=== PATIENT | female | born 1955 | race Caucasian/White ===

== ENCOUNTER → 2017-07-08 11:03 | Outpatient (CLI) | payer BC, SELFPAY ==
--- NOTE | 2017-07-08 11:30 | MRI_ITS ---
STUDY: MRI BRAIN WITHOUT CONTRAST REASON FOR EXAM: Female, 61 years old. Tremors. Photophobia off-and-on x one year or more. TECHNIQUE: Standardized multiplanar fat and water weighted pulse sequences were obtained. COMPARISON: None. FINDINGS: No restricted diffusion to suspect acute or subacute ischemic infarct. No focal signal abnormalities throughout the brain parenchyma in all of the pulse sequences. The manuel matter, white matter, ventricles and cisterns are normal. Normal size of the ventricles and extra-axial spaces for the patient's age. Normal white matter tracts of the supratentorial brain. Normal bilateral basal ganglia. Normal thalami. There is no extra-axial fluid accumulation. Normal flow voids within the major intracranial circulation suggesting patency by spin echo criteria. Normal sella turcica, pituitary gland, infundibular stalk, optic chiasm and hypothalamus. Normal tectal plate and pineal gland. Normal midbrain, jerel and medulla. Normal cerebellum. Normal basal cisterns. Normal bilateral temporal bones. Normal bilateral internal auditory canals. No demonstrated orbital abnormality, within the constraints of a routine brain study. Normal visualized paranasal sinuses. Normal calvarium and skull base. Normal visualized soft tissue structures. Normal visualized upper cervical spine. MRI/Brain without Contrast IMPRESSION: Normal unenhanced MRI of the brain. Electronically Signed: Justice Charles MD at 13:46 EST , Service support ,
== END ==
PROVIDERS: Family Provider Family Medicine; PCP Family Medicine; Visit Provider Psychiatry & Neurology Neurology
DX: R25.1 Tremor, unspecified (principal); R51 Headache
CPT/HCPCS: 70551

== ENCOUNTER → 2017-07-14 12:00 | Outpatient (CLI) | payer BC, SELFPAY ==
[2017-07-14 14:38] LABS: Free T3 3.7 pg/mL (2.18-3.98); Thyroid Stim Hormone (TSH) 2.11 uIU/mL (0.358-3.74)
[2017-07-16 14:49] LABS: Nortriptyline Level 58 ng/mL (50-150)
== END ==
PROVIDERS: Family Provider Family Medicine; PCP Family Medicine; Visit Provider Psychiatry & Neurology Psychiatry
DX: E03.9 Hypothyroidism, unspecified (principal)
CPT/HCPCS: 36415; 80335; 84439; 84443; 84481

== ENCOUNTER → 2017-09-09 08:16 | Outpatient (CLI) | payer BC, SELFPAY ==
--- NOTE | 2017-09-09 08:18 | RAD_ITS ---
STUDY: X-RAY - RIGHT HAND REASON FOR EXAM: Medial hand pain after injury 2 weeks ago. TECHNIQUE: 3 view(s) of the hand. COMPARISON: Radiographs 11/01/2016. FINDINGS: Normal radiocarpal articulation. Normal distal radioulnar joint. Normal visualized carpal bones. There is widening the scapholunate interval as on the prior study. Normal carpometacarpal articulation of the thumb. Normal second through fifth carpometacarpal joints. There is healed fracture deformity of the proximal fifth metacarpal. Normal metacarpophalangeal joint of the thumb. Normal interphalangeal joint of the thumb. Normal proximal and distal phalanges of the thumb. Normal metacarpophalangeal joints of the second through fifth fingers. Normal proximal and distal interphalangeal joints of the second through fifth fingers. Normal phalanges of the second through fifth fingers. The soft tissue structures are unremarkable. RAD/Hand Min 3 Views IMPRESSION: Healed fracture deformity of the proximal fifth metacarpal. Chronic tear of the scapholunate ligament. No demonstrated new injury. Electronically Signed: Justin Hernandez MD at 11:50 EDT Tel , Service support ,
== END ==
PROVIDERS: Family Provider Family Medicine; PCP Family Medicine; Visit Provider Orthopaedic Surgery
DX: M79.641 Pain in right hand (principal)
CPT/HCPCS: 73130

== ENCOUNTER → 2017-09-18 14:17 | Outpatient (CLI) | payer BC, SELFPAY ==
--- NOTE | 2017-09-18 14:20 | BD_ITS ---
STUDY: DUAL ENERGY X-RAY ABSORPTIOMETRY / DXA REASON FOR EXAM: Female, 61 years old. The patient is postmenopausal. Loss of height of 2 inches. TECHNIQUE: Bone Mineral Density (BMD) measurements of lumbar spine and bilateral hips were obtained. COMPARISON: Comparison is made with prior study dated July 26, 2015. FINDINGS: Lumbar Spine (L1-L4): g/cm2 (1.029) / T-score (-1.4) / Z-score (0.0) Findings are suggestive of osteopenia with a moderate fracture risk. Left Femur Total: g/cm2 (0.853) / T-score (-1.2) / Z-score (-0.2) Left Femoral Neck: g/cm2 (0.876) / T-score (-1.2) / Z-score (0.2) Right Femur Total: g/cm2 (0.850) / T-score (-1.2) / Z-score (-0.2) Right Femoral Neck: g/cm2 (0.872) / T-score (-1.2) / Z-score (0.2) The T-Scores on the most recent prior examination were: Lumbar Spine (L1-L4): There has been worsening of bone density since the previous examination. Left Femur Total: which represents an improvement of 0.4%. Right Femur Total: which represents a worsening of 0.6%. BD/Dexa Bone Density Study IMPRESSION: The patient is considered osteopenic as outlined below according to World [employer] Organization (WHO) criteria with a moderate fracture risk. There has been worsening of bone density since the previous examination. Reference Information: The T-score is the number of standard deviations above or below the standard which is normal for young adults at their peak bone mineral density. The World Health Organization (WHO) interprets the T-scores as follows: Above -1 Normal bone density Between -1 and -2.5 Osteopenia Equal to / or below -2.5 Osteoporosis As a practical clinical guideline, osteopenia may be graded as follows: Mild -1 through -1.5 Moderate -1.6 through -2.0 Severe -2.1 through -2.4 The Z-score is the number of standard deviations above or below age-matched controls. A Z-score of less than -1.5 would be considered abnormal. References: 1. NIH Osteoporosis and Related Bone Diseases http://www.osteo.org 2. International Society for Clinical Densitometry http://www.iscd.org 3. National Osteoporosis Foundation http://www.nof.org Electronically Signed: Zach Muñoz MD at 14:58 EDT Tel [phone], Service support ,
== END ==
PROVIDERS: Family Provider Family Medicine; PCP Family Medicine; Visit Provider Family Medicine
DX: M81.0 Age-related osteoporosis without current pathological fracture (principal)
CPT/HCPCS: 77080

== ENCOUNTER → 2017-11-06 10:56 | Outpatient (CLI) | payer BC, SELFPAY ==
--- NOTE | 2017-11-06 10:58 | RAD_ITS ---
STUDY: X-RAY - PELVIS AND LEFT HIP REASON FOR EXAM: Left hip pain for 2 years, worsening. TECHNIQUE: Radiological exam, hip, unilateral, with pelvis when performed; 2 or 3 views. COMPARISON: None. FINDINGS: There are small pelvic phleboliths. There is enthesopathy of the iliac wings bilaterally. Normal bilateral superior and inferior pubic rami. Normal pubic symphysis. Normal bilateral ischial tuberosities. Normal visualized left femoral head. Normal left acetabulum. Normal left hip joint. RAD/Hip 2-3 Views with Pelvis IMPRESSION: Enthesopathy of the iliac wings bilaterally. Otherwise, unremarkable x-ray examination of the pelvis and left hip. Electronically Signed: Justin Hernandez MD at 15:13 EDT Tel , Service support ,
--- NOTE | 2017-11-06 10:58 | RAD_ITS ---
STUDY: X-RAY - LUMBOSACRAL SPINE REASON FOR EXAM: Female, 62 years old. Left hip pain for 2 years. TECHNIQUE: 6 view(s) of the lumbosacral spine including lateral flexion and extension views were obtained. COMPARISON: None FINDINGS: Normal lumbar lordosis. There is no substantial scoliosis. There is normal alignment of the vertebrae. There is limited flexion and extension with no abnormal motion. Normal vertebral bodies and endplates. There is intervertebral disc space narrowing at multiple levels, most marked at L4-5 with no significant osteophyte formation. There is mild diffuse facet sclerosis. Normal bilateral sacral ala, sacroiliac joints, and visualized sacrum. There are cholecystectomy clips. RAD/L/S Spine Comp/w Bending Views IMPRESSION: Minimal lumbar spondylosis. Limited flexion and extension with no abnormal motion. Electronically Signed: Aurelio Bustillo MD at 16:15 EDT , Service support ,
== END ==
PROVIDERS: Family Provider Family Medicine; PCP Family Medicine; Visit Provider Orthopaedic Surgery
DX: M54.16 Radiculopathy, lumbar region (principal); M47.896 Other spondylosis, lumbar region; M77.9 Enthesopathy, unspecified
CPT/HCPCS: 72114; 73502

== ENCOUNTER 2017-12-04 14:00 | Outpatient (RCR) | payer BC, SELFPAY ==
--- NOTE | 2017-11-18 18:57 | HP.PTEVAL_ITS ---
Patient's Visit Information ACE HINES is a 62 year old F referred to Physical Therapy by Malgorzata Goodwin DO with a diagnosis of LBP and Left Hip Pain. Date of Evaluation: 11/18/17 Physical Therapist: Phyllis Tran - Visit Plan Frequency: 2x /Week Duration: 4 Weeks Plan: Focus on core s/s and postural education - Subjective Subjective: Patient reports that her left hip has been bothering her for months with insidious onset. She went to the MD who took x-rays which she reports were negative- did not give her an injection and sent her to PT. Over the years she has been thrown by horses and mostly lands on her left side. The pain is located over the left hip to the knee on the lateral aspect. Pain at its worst: 4/10 agg: movement, pushing, pulling, driving >2 hours. Best: 0/10 but she has not found anything that eases the pain once she starts to hurt. She reports the pain can either be achy or sharp/shooting. Sharp/shooting happens when she steps up on a greater step with the left LE. N/T down to the knee that comes and goes. Denies any back pain. No change or loss of bowel/ bladder. Sleep: not disturbed but she doesn't sleep well normally. Work: retired- but is very active. She is currently not but plans to get back to riding horses. PMHx: skin cancer, depression, heart palpitations, stomach issues, and hiatal hernia. Meds: Lexipro, protonics, troprolol, nortiptolene, thyroid, lipitor. - Objective Posture: FH, RS, Increased kyphosis- can correct with verbal cues but doesn't maintain in both sitting and standing. Gait: no deviation noted. ROM: WFL- reports discomfort with SB Right and forward flexion of lumbar spine. Hip/knee/ ankle: WNL. SLS: 30 sec bilateral with no LOB or UE A. HR/TR: WNL. Sensation/ Reflex: WNL bilaterally. Palpation: not tender to touch in LE or lumbar spine. Strength: Core: poor, Hip: Left: 4/5 throughout Right 4+/5 throughout Knee/ Ankle: 5/5. Flex: HS: moderate. Gastroc: moderate. Special Test: dural signs positive on the left slump: positive on the left - Goals Goal 1:: Patient will be I with HEP and progression Goal Time Frame: 4-6 Weeks Goal 2:: Patient will demo 5/5 strength in bilateral LE Goal Time Frame: 4-6 Weeks Goal 3:: Patient will maintain proper posture t/o tx session to demo increased core s/s Goal Time Frame: 4-6 Weeks - Rehabilitation Potential Physical Therapy Diagnosis: Patient presents with hypomobility- she has decreased core s/s leading to poor posture and increased pain Rehabilitation Potential: Fair - Anticipated Interventions Patient/Client Instruction: Educate patient on: Benefits of Fitness Program For the Purpose of:: To improve ability to perform ADL's Therapeutic Exercise to Include: Strength training, Endurance training, Coordination, Agility training, Body mechanics, Postural training, Flexibilty training, Dynamic Lumbar Stabilization For the Purpose of:: To improve muscle performance and motor function TENS: Yes Cryotherapy (ice pack, ice massage): Yes Thermo therapy (hot pack): Yes Ultrasound (thermal/non thermal): Yes For the Purpose of:: To decrease pain Thank you for the opportunity to evaluate your patient. For Medicare and Medicare HMO plans, please review the plan of care and approve it. It will need to be FAXED BACK to us at [phone] for Medicare purposes. Please let me know if there are questions or concerns regarding this plan of care. Physician Signature: Date:
--- NOTE | 2018-03-03 10:40 | HP.PT.NRP ---
HP - Discharge Summary (1) - Patient Information ACE HINES was seen in my office for initial evaluation on 11/18/17. The following Plan of Care was established for this patient: Initial Frequency: 2x /Week Initial Duration: 4 Weeks - Anticipated Interventions Patient/Client Instruction: Educate patient on: Benefits of Fitness Program For the Purpose of:: To improve ability to perform ADL's Therapeutic Exercise to Include: Strength training, Endurance training, Coordination, Agility training, Body mechanics, Postural training, Flexibilty training, Dynamic Lumbar Stabilization For the Purpose of:: To improve muscle performance and motor function TENS: Yes Cryotherapy (ice pack, ice massage): Yes Thermo therapy (hot pack): Yes Ultrasound (thermal/non thermal): Yes For the Purpose of:: To decrease pain This patient was last seen in our office . Pertinent comments regarding their Physical therapy will appear below: Patient has not attended physical therapy in over 8 weeks. At this time patient is appropriate for d/c and return to MD as needed. At this point I will be discontinuing this patient from physical therapy. I would be happy to see this patient again in the future if found appropriate by the physician. Thank you! Phyllis Tran
== END 2017-12-04 19:00 | disposition home or self-care (01) ==
LOC: PT 14:00
PROVIDERS: Family Provider Family Medicine; PCP Family Medicine; Visit Provider Orthopaedic Surgery
DX: M54.5 Low back pain (principal); M25.552 Pain in left hip
CPT/HCPCS: 97110; 97162

== ENCOUNTER → 2017-12-24 14:55 | Outpatient (CLI) | payer BC, SELFPAY ==
--- NOTE | 2017-12-24 14:59 | RAD_ITS ---
STUDY: X-RAY - LEFT HAND REASON FOR EXAM: Female, 62 years old. Trauma, status post injury TECHNIQUE: 3 view(s) of the hand. COMPARISON: None. FINDINGS: Normal radiocarpal articulation. Normal distal radioulnar joint. Normal visualized carpal bones. Normal carpal articulations Normal carpometacarpal articulation of the thumb. Normal second through fifth carpometacarpal joints. Normal metacarpi. Normal metacarpophalangeal joint of the thumb. Normal interphalangeal joint of the thumb. Normal proximal and distal phalanges of the thumb. Normal metacarpophalangeal joints of the second through fifth fingers. Normal proximal and distal interphalangeal joints of the second through fifth fingers. Normal phalanges of the second through fifth fingers. There is a ring on the fourth finger, which could not be removed. The soft tissue structures are unremarkable. RAD/Hand Min 3 Views IMPRESSION: Normal x-ray examination of the hand. Electronically Signed: Kory Nunez DO at 10:33 EDT Tel , Service support ,
== END ==
PROVIDERS: Family Provider Family Medicine; PCP Family Medicine; Visit Provider Family Medicine
DX: M79.642 Pain in left hand (principal)
CPT/HCPCS: 73130

== ENCOUNTER → 2018-02-11 12:25 | Outpatient (CLI) | payer BC, SELFPAY ==
[2018-02-11 14:45] LABS: Absolute Lymphocyte Count 1.43 X10^3/ul (0.83-4.51); Basophil# 0.03 X10^3/uL; Basophil% 0.6 % (0-1); Eosinophil# 0.11 X10^3/uL; Eosinophils% 2.2 % (0-5); Hematocrit 41.8 % (37-47); Hemoglobin 13.1 g/dl (12.0-15.0); Lymphocyte # 1.43 X10^3/ul (4.0); Lymphocyte % 28.5 % (19-41); Mean Corp Hgb Conc 31.3 g/gl (32-36); Mean Corpuscular Hgb 26.6 pg (27.0-32.0); Mean Corpuscular Volume 84.8 fL (81-99); Mean Platelet Vol. 10.1 fl (6.2-12.0); Monocyte# 0.47 X10^3/uL; Monocyte% 9.4 % (0-10); Neutrophil # 2.97 X10^3/uL (2.7-7.7); Neutrophil % 59.1 % (47-70); Platelet Count 280 K/mm3 (150-450); RBC Distribution Width CV 13.9 % (11.6-14.6); RBC Distribution Width SD 43.1 fl (35.1-43.9); Red Blood Count 4.93 M/mm3 (4.2-5.4)
[2018-02-11 14:50] LABS: POSITIVE COUNT NO; POSITIVE DIFFERENTIAL NO; POSITIVE MORPHOLOGY NO
[2018-02-11 15:06] LABS: AST(SGOT) 22 U/L (15-37); Alanine Aminotransfer ALT/SGPT 26 U/L (13-56); Alkaline Phosphatase 104 U/L (45-117); Anion Gap 9 (5-15); BUN 17 mg/dL (7-18); BUN/Creat Ratio 14.4 RATIO (10-20); Calcium,Total 9.5 mg/dL (8.5-10.1); Chloride 107 mmol/L (98-107); Cholesterol 186 mg/dL (200); Creatinine, Serum 1.18 mg/dL (0.55-1.02); EST Glomerular Filtration Rate 49 mL/min (>60); Est Glom Filt Rate - Afr Amer 59 mL/min (>60); Globulin 3.9 g/dL (2.2-4.2); Glucose 94 mg/dL (74-106); High Density Lipoprotein 62 mg/dL; Protein, Total 7.9 g/dL (6.4-8.2); Sodium Level 141 mmol/L (136-145); Triglycerides 113 mg/dL; Very Low Density Lipoprotein 23 mg/dL (5-40)
== END ==
PROVIDERS: Family Provider Family Medicine; PCP Family Medicine; Visit Provider Family Medicine
DX: M85.80 Other specified disorders of bone density and structure, unspecified site (principal); E55.9 Vitamin D deficiency, unspecified; E78.5 Hyperlipidemia, unspecified; Z51.81 Encounter for therapeutic drug level monitoring
CPT/HCPCS: 36415; 80053; 80061; 82306; 85025

== ENCOUNTER 2018-03-10 14:50 | Emergency (ER) | payer BC, SELFPAY ==
[2018-03-10 14:51] VITALS: BP 149/93; PULSE 87; RESP 14; TEMP 36.6; O2SAT 98; BMI 35.1
--- NOTE | 2018-03-10 15:09 | NURSING ---
LEFT RIB PAIN
--- NOTE | 2018-03-10 15:25 | CT_ITS ---
STUDY: CT CERVICAL SPINE WITHOUT CONTRAST REASON FOR EXAM: Female, 62 years old. Fall from horse. RADIATION DOSAGE (If Supplied By Facility): CTDIvol = ( 13.50 ) mGy, DLP = ( 247.20 ) mGycm TECHNIQUE: High resolution transaxial imaging was performed without contrast material. Sagittal and coronal images were reconstructed. Individualized dose optimization techniques were used for this CT. COMPARISON: None FINDINGS: Normal craniovertebral junction. Normal anterior atlantoaxial articulation. Normal odontoid process. There is straightening of the normal cervical lordosis. No acute fracture of the vertebral bodies and posterior osseous elements. C2-3: Normal endplates. Normal disc height and morphology. There is degenerative arthrosis of the right facet articulation with severe joint space narrowing and some periarticular spurring Normal central canal and intervertebral neuroforamina. C3-4: Anterior C3 endplate osteophyte, as well as degenerative spurring of the posterior lateral uncovertebral joints, greater on the left. Moderate disc height narrowing. There is moderately severe degenerative narrowing of the bilateral facet joint spaces with greater hypertrophic degenerative change on the left. Normal central canal. Mild osseous encroachment on the left intervertebral neuroforamen. C4-5: Degenerative left posterolateral endplate lipping. Mild to moderate posterior disc height narrowing. Mild/moderate degenerative narrowing and hypertrophic change of the bilateral facet joints. Normal central canal and intervertebral neuroforamina. C5-6: Mild anterior and right posterior lateral endplate spurring. Focal invaginations of the opposing endplates consistent with subcortical cystic degenerative changes and/or Schmorl's nodes. Moderate disc height narrowing. Early degenerative arthroses of the bilateral facet articulations. Normal central canal and intervertebral neuroforamina. C6-7: There is circumferential endplate spurring. Focal invaginations of the opposing endplates consistent with subcortical cystic degenerative changes and/or Schmorl's nodes. Moderate disc height narrowing. Early degenerative arthroses of the left facet articulation. Normal central canal and intervertebral neuroforamina. C7-T1: Normal endplates. Normal disc height and morphology. Early hypertrophic degenerative arthrosis of the left facet joint. Normal central canal and intervertebral neuroforamina. Normal visualized soft tissue structures. CT/Spine Cervical without Contras IMPRESSION: Multilevel degenerative changes, as described above. No acute fracture of the cervical spine. Electronically Signed: Brennon Jacobs MD at 16:27 EDT , Service support ,
--- NOTE | 2018-03-10 15:25 | CT_ITS ---
STUDY: CT CHEST WITHOUT CONTRAST REASON FOR EXAM: Female, 62 years old. Chest pain after a fall RADIATION DOSAGE (If Supplied By Facility): CTDIvol = ( 18.15 ) mGy, DLP = ( 567.00 ) mGycm TECHNIQUE: Transaxial imaging was performed without the administration of intravenous contrast material. Individualized dose optimization techniques were used for this CT. COMPARISON: None. FINDINGS: The lungs are normal. There is no demonstrated pleural abnormality. Normal heart and pericardium. There are scattered subcentimeter axillary and mediastinal lymph nodes. Normal hilar regions. Normal unenhanced pulmonary arteries. Normal aorta arch and descending thoracic aorta. There are multi-level degenerative changes of the thoracic spine. No demonstrated sternal, rib, or vertebral body fracture There is no demonstrated abnormality of the visualized upper abdomen. CT/Chest without Contrast IMPRESSION: No CT evidence of an acute pulmonary process Degenerative bony changes in the thoracic spine but no demonstrated osseous fracture Electronically Signed: Brennon Crisostomo MD at 16:15 EDT , Service support ,
--- NOTE | 2018-03-10 15:25 | CT_ITS ---
STUDY: CT BRAIN WITHOUT CONTRAST REASON FOR EXAM: Female, 62 years old. Fall from horse. RADIATION DOSAGE (If Supplied By Facility): CTDIvol = ( 44.99 ) mGy, DLP = ( 779.24 ) mGycm TECHNIQUE: Transaxial CT imaging of the brain was performed without administration of intravenous contrast material. Individualized dose optimization techniques were used for this CT. COMPARISON: None. FINDINGS: Normal soft tissue structures. Normal calvarium. There is mild bifrontal cerebral atrophy with some widening of the frontotemporal extra-axial spaces. Normal white matter tracts of the cerebral hemispheres. Normal basal ganglia and thalami. Normal brainstem. Normal cerebellum. Our mild atherosclerotic calcifications of the cavernous segments of the internal carotid arteries. There is no intracranial hemorrhage. There are no findings of an acute ischemic infarction. Normal visualized paranasal sinuses. Incidental note of efe bullosa on the right and mild leftward deviation of the mid nasal septum. CT/Brain/Head without Contrast IMPRESSION: No acute intracranial injury. Electronically Signed: Brennon Jacobs MD at 16:20 EDT , Service support ,
--- NOTE | 2018-03-10 15:28 | ED.DCSUM_ITS ---
- ER Visit Summary Date of Service: 03/10/18 Chief Complaint: Fall off horse History of Present Illness: The patient is a 62 F patient fall off a horse 1 PM. [place], was getting ready to get off her horse when the horse moved to the right. Fell onto left upper back. Did hit her head. Had a helmet on. States she saw stars. Mild headache. No visual change. No nausea or vomiting. No neck or back pain. Pain in left upper chest wall. No dyspnea. No anticoagulation medications. States she has had fractures in the past with no surgical intervention. Followed by Dr. Montoya. No lower extremity pain no abdominal pain. No paresthesias. Physical Examination: General: Alert and oriented ?3, mild distress HEENT: Normocephalic, atraumatic. No hemotympanum, no facial tenderness. Moist mucosa membranes Neck: supple, nontender. Cardiovascular: Regular rate and rhythm, no murmurs. His left upper chest wall tenderness with no crepitus. Respiratory: Normal breath sounds, symmetric, no distress Abdomen: Soft, nontender, nondistended Extremities: Nontender, no edema, pulses intact ?4 Neuro: no focal neurological deficits. Test Results: CT head and neck no intracranial process. Degenerative changes of the neck. No fractures. CT noncontrast chest, no fractures. Degenerative changes thoracic spine. Emergency Department Course and Treatment: Patient traumatic injury fall off a horse 5 feet high. No focal neurological deficits. However has slight headache, discussed concussion symptoms. CT scan images were negative. With her chest wall pain with injury noncontrast scan obtained shows no rib fractures or pulmonary contusions. There is degenerative changes of the spine. She was given fentanyl initially for symptom control. She has tolerated Dale's in the past. Concussion precautions discussed. She will follow-up with her PCP for reevaluation. All questions were answered. OARRS negative. Treatment Plan: [] Disposition: Discharge Impression: 1. Fall 2. Concussion without loss of consciousness 3. Chest wall contusion This note was generated with [email or web address] software. It may contain incorrect words, spelling, and punctuation that were not noted in review of the chart prior to signing ED Disposition - Plan for ED Patient: Disposition: Home or Assisted Living Chief Complaint: Fall Diagnosis: Concussion without loss of consciousness, initial encounter, Chest wall contusion, Fall off horse Instructions: ED Contusion Chest Wall, ED Concussion Prescriptions: Hydrocodone Bitart/Apap 5-325 [Dale 5MG-325MG] 1 tablet PO Q6H PRN PRN 3 Days #10 tablet PRN Reason: Pain Referrals: Sosa Chandler DO [Primary Care Provider] - 3-5 Days
[2018-03-10] MEDS: fentaNYL 100 MCG/2 ML Ampul 50 MCG IM (15:54)
[2018-03-10 16:55] VITALS: BP 142/81; PULSE 82; RESP 16
== END 2018-03-10 16:58 | disposition home or self-care (01) ==
PROVIDERS: Emergency Provider Emergency Medicine; Family Provider Family Medicine; PCP Family Medicine
DX: S06.0X0A Concussion without loss of consciousness, initial encounter (principal); S20.212A Contusion of left front wall of thorax, initial encounter; V80.010A Animal-rider injured by fall from or being thrown from horse in noncollision accident, initial encounter; Y93.52 Activity, horseback riding; I10 Essential (primary) hypertension; E78.00 Pure hypercholesterolemia, unspecified; K21.9 Gastro-esophageal reflux disease without esophagitis; Z79.899 Other long term (current) drug therapy
CPT/HCPCS: 70450; 71250; 72125; 96372; 99282

== ENCOUNTER → 2018-04-15 14:09 | Outpatient (CLI) | payer BC, SELFPAY ==
[2018-04-15 15:55] LABS: Anion Gap 8 (5-15); BUN 17 mg/dL (7-18); BUN/Creat Ratio 17.8 RATIO (10-20); Calcium,Total 9.1 mg/dL (8.5-10.1); Chloride 106 mmol/L (98-107); Creatinine, Serum 0.96 mg/dL (0.55-1.02); EST Glomerular Filtration Rate 63 mL/min (>60); Est Glom Filt Rate - Afr Amer 76 mL/min (>60); Glucose 104 mg/dL (74-106); Potassium 3.5 mmol/L (3.5-5.1); Sodium Level 143 mmol/L (136-145)
== END ==
PROVIDERS: Family Provider Family Medicine; PCP Family Medicine; Referring Provider Family Medicine; Visit Provider Family Medicine
DX: Z51.81 Encounter for therapeutic drug level monitoring (principal); N28.9 Disorder of kidney and ureter, unspecified
CPT/HCPCS: 36415; 80048

== ENCOUNTER 2018-05-01 19:45 | Observation (INO) | payer BC, SELFPAY ==
[2018-04-28 10:21] VITALS: BMI 35.0
[2018-05-01 19:46] VITALS: BP 129/77; PULSE 90; RESP 22; TEMP 39.1; O2SAT 98; BMI 37.0
--- NOTE | 2018-05-01 20:06 | CT_ITS ---
STUDY: CT BRAIN WITHOUT CONTRAST REASON FOR EXAM: Female, 62 years old. Facial pain with headache. RADIATION DOSAGE (If Supplied By Facility): CTDIvol = ( 44.99 ) mGy, DLP = ( 779.24 ) mGycm TECHNIQUE: Transaxial CT imaging of the brain was performed without administration of intravenous contrast material. Individualized dose optimization techniques were used for this CT. COMPARISON: To March 2018 CT head FINDINGS: Normal soft tissue structures. Normal calvarium. There is mild cerebral atrophy with widening of the extra-axial spaces and ventricular dilatation. Normal white matter tracts of the cerebral hemispheres. Normal basal ganglia and thalami. Normal brainstem. Normal cerebellum. There is no intracranial hemorrhage. There are no findings of an acute ischemic infarction. Normal visualized paranasal sinuses. CT/Brain/Head without Contrast IMPRESSION: No evidence of acute intracranial bleed, mass or ischemia. Electronically Signed: Roel Coyne DO at 21:38 EST , Service support ,
--- NOTE | 2018-05-01 20:08 | CT_ITS ---
STUDY: CT MAXILLOFACIAL SINUSES REASON FOR EXAM: Female, 62 years old. Facial pain and headache. RADIATION DOSAGE (If Supplied By Facility): CTDIvol = ( 29.38 ) mGy, DLP = ( 554.80 ) mGycm TECHNIQUE: The patient was scanned in a multi detector CT scanner. High resolution axial imaging was performed without the administration of intravenous contrast material. Sagittal and coronal images were reconstructed. Individualized dose optimization techniques were used for this CT. COMPARISON: None. FINDINGS: FRONTAL SINUSES: Normal aeration, without mucosal inflammatory disease. ETHMOIDAL SINUSES: Normal aeration, without mucosal inflammatory disease. MAXILLARY SINUSES: Minimal inferior maxillary mucosal thickening is present with no evidence of fluid layering. SPHENOIDAL SINUSES: Normal aeration, without mucosal inflammatory disease. There is patency of the bilateral maxillary infundibuli with normal uncinate processes, ethmoid bullae, and hiatus semilunaris. Normal bilateral middle turbinates. Normal bilateral inferior turbinates. Normal midline nasal septum. There is patency of the bilateral nasal airways. The visualized osseous structures are normal. The visualized bilateral orbital contents are normal. CT/Sinus/Facial Bone IMPRESSION: No evidence of acute sinus abnormality or soft tissue inflammation. Electronically Signed: Roel Coyne DO at 21:42 EST , Service support ,
[2018-05-01 20:31] LABS: Absolute Neutrophil Count 3.8 X10^3/uL (2.0-7.7); Eosinophil# 0.18 X10^3/uL; Eosinophils% 3.5 % (0-5); Hematocrit 39.2 % (37-47); Hemoglobin 12.7 g/dl (12.0-15.0); Lymphocyte % 13.5 % (19-41); Mean Corp Hgb Conc 32.4 g/gl (32-36); Mean Corpuscular Hgb 26.8 pg (27.0-32.0); Mean Corpuscular Volume 82.9 fL (81-99); Mean Platelet Vol. 10.1 fl (6.2-12.0); Monocyte# 0.52 X10^3/uL; Monocyte% 10.1 % (0-10); Neutrophil # 3.75 X10^3/uL (2.7-7.7); Neutrophil % 72.5 % (47-70); POSITIVE COUNT NO; POSITIVE DIFFERENTIAL NO; POSITIVE MORPHOLOGY NO; Platelet Count 238 K/mm3 (150-450); RBC Distribution Width SD 42.4 fl (35.1-43.9); Red Blood Count 4.73 M/mm3 (4.2-5.4); White Blood Count 5.2 K/mm3 (4.4-11.0)
[2018-05-01] MEDS: 0.9% Normal Saline 1,000 ML 1000 ML IV (20:36)
[2018-05-01] MEDS: Acetaminophen 500 MG Tablet 1000 MG PO (20:36)
--- NOTE | 2018-05-01 20:45 | RAD_ITS ---
STUDY: X-RAY CHEST REASON FOR EXAM: Female, 62 years old. Fever and low blood pressure TECHNIQUE: Frontal and lateral views of the chest. COMPARISON: May 20, 2016 CT chest FINDINGS: The lungs are clear and expanded. There is no demonstrated pleural abnormality. Normal size heart. Normal mediastinum and sharyn. Normal visualized pulmonary arteries. Normal visualized aortic arch and descending thoracic aorta. Normal visualized thoracic spine. Normal visualized ribs, clavicles, and shoulders. There is no demonstrated abnormality of the visualized soft tissue structures of the upper abdomen. RAD/Chest PA and Lateral IMPRESSION: Normal x-ray examination of the chest. Electronically Signed: Toñito Ruiz MD at 22:00 EST , Service support ,
[2018-05-01 21:05] LABS: AST(SGOT) 28 U/L (15-37); Alanine Aminotransfer ALT/SGPT 33 U/L (13-56); Alkaline Phosphatase 114 U/L (45-117); Anion Gap 10 (5-15); BUN 17 mg/dL (7-18); Bilirubin, Direct 0.12 mg/dL (0.00-0.30); Calcium,Total 9.2 mg/dL (8.5-10.1); Chloride 100 mmol/L (98-107); Creatinine, Serum 1.42 mg/dL (0.55-1.02); EST Glomerular Filtration Rate 40 mL/min (>60); Est Glom Filt Rate - Afr Amer 48 mL/min (>60); Estimated Creatinine Clearance 33.54 ml/min; Globulin 4.2 g/dL (2.2-4.2); Glucose 95 mg/dL (74-106); Potassium 3.6 mmol/L (3.5-5.1); Protein, Total 8.2 g/dL (6.4-8.2); Sodium Level 132 mmol/L (136-145)
[2018-05-01 21:09] LABS: Lactic Acid 2.8 mmol/L (0.4-2.0)
--- NOTE | 2018-05-01 21:09 | ED.RN ---
DR ROSADO NOTIFIED OF LACTIC ACID RESULTS
[2018-05-01] MEDS: 0.9% Normal Saline 1,000 ML 999 ML IV ×2 (21:38→23:21)
[2018-05-01 21:41] VITALS: BP 120/76; PULSE 83; RESP 22; TEMP 37.5; O2SAT 98
[2018-05-01 21:58] LABS: Bacteria 0 SEEN /hpf (None Seen); Mucous, Urine 0 SEEN /hpf (<or=2+); Red Blood Cells-Urine 0 SEEN /hpf (0-5)
[2018-05-01 21:59] LABS: Color, Urine Yellow (Yellow); Glucose, Dipstick Normal (Normal); Ketone-Dipstick 15 mg/dl (Negative); Leukocyte Esterase-Dipstick 25 /ul (Negative); Nitrite-Dipstick Negative (Negative); Occult Blood-Urine Negative /ul (Negative); Protein-Dipstick 15 mg/dl (Negative); Specific Gravity, Urine 1.015 (1.002-1.030); Urine Bilirubin Dipstick Negative (Negative); Urine Clarity Clear (Clear); Urine Urobilinogen 1 mg/dl (Normal)
[2018-05-01 22:06] LABS: Squamous Epithelial Cells - UA 5-10 SEEN /hpf (5-10); White Blood Cells 0-5 SEEN /hpf (0-5)
--- NOTE | 2018-05-01 22:34 | ED.VISSUMM ---
- ER Visit Summary Date of Service: 05/01/18 Chief Complaint: Anxiety, depression, low blood pressure History of Present Illness: The patient is a 62 F reports not feeling well for a while. She was [facility] the [facility] 3 days ago and placed on Bactrim for sinusitis. Patient reports body aches and chills today. Her blood pressure at home tonight was in the 90s over 60s. She does describe facial pressure with some congestion. No significant cough. No vomiting or diarrhea. Physical Examination: Blood pressure is 129/77, temperature 102.3, heart rate 90, respiratory rate 22, pulse ox 98% on room air. Patient is sitting upright in bed. She appears ill but not toxic. Head neck examination does reveal moist mucous membranes. No meningismus. Heart is regular rate and rhythm. Lung sounds are clear. Abdomen is soft and nontender. Hypoactive but present bowel sounds are noted. Skin examination reveals no rash or lesions. Test Results: Two-view chest x-ray is unremarkable. CT head shows no acute findings. CT of the sinuses shows no acute sinus abnormality. CBC is unremarkable. Chemistry studies significant for a sodium of 132 and a creatinine 1.42. LFTs unremarkable. Urinalysis shows 15 ketones but no sign of acute infection. Lactate is mildly elevated at 2.8. Influenza swab is negative. Blood cultures were sent. Emergency Department Course and Treatment: Patient is given IV fluids along with p.o. Tylenol. Repeat temperature is currently 99.5. Vital signs are stable. At this time I recommended hospitalization for IV fluids and repeat blood work. Patient has been on Bactrim for the past 3 days taking her most recent dose this morning. I will speak with the hospitalist regarding preference on broad-spectrum antibiotic coverage versus waiting to see if source of fever declares itself. Treatment Plan: [] Disposition: Admit Impression: SIRS This note was generated with [employer] dictation software. It may contain incorrect words, spelling, and punctuation that were not noted in review of the chart prior to signing ED Disposition - Plan for ED Patient: Chief Complaint: General Illness Referrals: Sosa Chandler DO [Primary Care Provider] -
--- NOTE | 2018-05-01 22:37 | ED.DCSUM_ITS ---
- ER Visit Summary Date of Service: 05/01/18 Chief Complaint: Anxiety, depression, low blood pressure History of Present Illness: The patient is a 62 F reports not feeling well for a while. She was seen at the [facility] 3 days ago and placed on Bactrim for sinusitis. Patient reports body aches and chills today. Her blood pressure at home tonight was in the 90s over 60s. She does describe facial pressure with some congestion. No significant cough. No vomiting or diarrhea. Physical Examination: Blood pressure is 129/77, temperature 102.3, heart rate 90, respiratory rate 22, pulse ox 98% on room air. Patient is sitting upright in bed. She appears ill but not toxic. Head neck examination does reveal moist mucous membranes. No meningismus. Heart is regular rate and rhythm. Lung sounds are clear. Abdomen is soft and nontender. Hypoactive but present bowel sounds are noted. Skin examination reveals no rash or lesions. Test Results: Two-view chest x-ray is unremarkable. CT head shows no acute findings. CT of the sinuses shows no acute sinus abnormality. CBC is unremarkable. Chemistry studies significant for a sodium of 132 and a creatinine 1.42. LFTs unremarkable. Urinalysis shows 15 ketones but no sign of acute infection. Lactate is mildly elevated at 2.8. Influenza swab is negative. Blood cultures were sent. Emergency Department Course and Treatment: Patient is given IV fluids along with p.o. Tylenol. Repeat temperature is currently 99.5. Vital signs are stable. At this time I recommended hospitalization for IV fluids and repeat blood work. Patient has been on Bactrim for the past 3 days taking her most recent dose this morning. I will speak with the hospitalist regarding preference on broad- spectrum antibiotic coverage versus waiting to see if source of fever declares i tself. Treatment Plan: [] Disposition: Admit Impression: SIRS This note was generated with [employer] dictation software. It may contain incorrect words, spelling, and punctuation that were not noted in review of the chart prior to signing ED Disposition - Plan for ED Patient: Chief Complaint: General Illness Referrals: Sosa Chandler DO [Primary Care Provider] -
[2018-05-01 23:13] VITALS: BP 131/69; PULSE 82; RESP 16; O2SAT 96
--- NOTE | 2018-05-01 23:25 | PCM.HP.STD ---
Problem List (1) SIRS (systemic inflammatory response syndrome) Status: Acute (2) Viral syndrome Status: Acute (3) HLD (hyperlipidemia) Status: Chronic Qualifiers: Hyperlipidemia type: unspecified Qualified Code(s): E78.5 - Hyperlipidemia, unspecified (4) Prediabetes Status: Chronic (5) GERD (gastroesophageal reflux disease) Status: Chronic Qualifiers: Esophagitis presence: esophagitis presence not specified Qualified Code(s): K21.9 - Gastro-esophageal reflux disease without esophagitis (6) Hiatal hernia Status: Chronic (7) Obesity Status: Chronic Qualifiers: Obesity type: unspecified obesity type Obesity classification: adult class 2 (BMI 35 - 39.9) Serious obesity comorbidity presence: unspecified whether serious comorbidity present Body mass index: BMI 36.0-36.9 Qualified Code(s): E66.9 - Obesity, unspecified; Z68.36 - Body mass index (BMI) 36.0-36.9, adult (8) History of depression Status: Chronic (9) Benign hypertension Status: Chronic History of Present Illness Date of Admission: 05/01/18 Chief Complaint: URI symptoms, fatigue, weakness, arthralgias, myalgias, fevers. The patient is a 62 y/o F w/ PMHx: Depression and Anxiety, HTN, HLD, Obesity, Prediabetes, GERD w/ Hiatal Hernia who presents to the [facility] ED on 05/01/18 with history of general malaise, fatigue, URI symptoms including rhinorrhea, postnasal drip as well as initially facial pressure with evaluation at urgent care the Friday prior with diagnosis at that time sinusitis treated with oral Bactrim with now onset myalgias, arthralgias, fevers and chills as well as home BP 90 over 60s. Patient did note she has had poor appetite recently and decreased oral hydration. She states that her facial pressure has resolved. In the ED workup included T102.3, heart rate 90, BP 129/77, respiratory rate 22, 98% on room air, CBC with W BC 5.2, hemoglobin 12.7, platelet 238 without market left shift, CMP with sodium 132, BUN/creatinine 17/1.42, lactic acid 2.8, urinalysis not marked appearing, CT brain with no acute findings, CT face and sinus with no evidence of acute sinus abnormality or soft tissue inflammation, chest x-ray with no acute findings, rapid influenza negative, blood culture x2 pending per ED, respiratory viral panel pending. The ED patient administered normal saline, GI cocktail, Tylenol. Past Medical History Past Medical History (Chronic Problems): Chronic Problems (Last Reviewed 04/28/18 @ 10:28 by Lupis Chase) HLD (hyperlipidemia) (Chronic) Prediabetes (Chronic) GERD (gastroesophageal reflux disease) (Chronic) Hiatal hernia (Chronic) Hearing loss (Chronic) Obesity (Chronic) Hx of familial combined hyperlipidemia (Chronic) History of depression (Chronic) Benign hypertension (Chronic) Medical History: Medical History (Last Reviewed 04/28/18 @ 10:28 by Lupis Chase) Anemia D64.9 Depression F32.9 Severe headache R51 Shoulder pain M25.519 Skin cancer C44.90 Allergies adhesive tape Allergy (Verified 05/01/18 19:54) Rash Penicillins Allergy (Verified 05/01/18 19:54) Hives Home Medications: Ambulatory Orders Medication Instructions Recorded Atorvastatin Calcium [Lipitor] 10 mg PO QHS 12/28/13 Escitalopram Oxalate [Lexapro] 20 mg PO DAILY 12/28/13 Famotidine [Pepcid] 20 mg PO BID 12/28/13 Metoprolol(XL)Succ [Toprol Xl 25 mg PO DAILY 12/28/13 (Beta Molly)] Nortriptyline HCl 35 mg PO QHS 12/28/13 pantoprazole 20 mg tablet,delayed 20 mg PO DAILY tab 09/09/17 release Liothyronine Sodium [Cytomel] 5 mcg PO BID 03/10/18 sulfamethoxazole 800 1 tab PO Q12H 7 Days #14 tab 04/28/18 mg-trimethoprim 160 mg tablet Surgical History: Surgical History (Last Reviewed 04/28/18 @ 10:28 by Lupis Chase) History of repair of ACL Z98.890 history of right hand surgery Surgical History: - - Right knee ACL repair, cholecystectomy, right hand surgery x2 secondary to crush injury and follow-up skin grafting. 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 Paternal History Items: - - Patient notes a paternal family history of hypertension and history of lung cancer, at 80. Review of Systems Constitutional: Reports: Anorexia, Chills, Fever, Malaise, Weakness, Fatigue. Denies: Weight Change HEENT: Denies: Head Aches, Sinus Congestion, Sinus Drainage Cardiovascular: Denies: Chest Pain, Palpitations Respiratory: Denies: Cough, Shortness of breath at rest, Sputum production Gastrointestinal: Reports: Nausea. Denies: Abdominal Pain, Vomiting Genitourinary: Denies: Dysuria Musculoskeletal: Reports: Joint Pain, Muscle pain. Denies: Joint Tenderness Skin: Denies: Rash, Wounds Neurological: Denies: Numbness, Tingling, Focal weakness Psychiatric: Reports: Anxiety, Depression. Denies: Homicidal Ideations, Suicidal Ideations Hematologic/ Lymphatic: Denies: Easy Bruising, Easy Bleeding VTE Information - Inpt Only VTE Present on Admission: No VTE Mechan Device Prophylaxis: SCD's VTE Pharm Prophylaxis ordered?: Yes Patient Problems: Active and Suspected Problems (Last Reviewed 04/28/18 @ 10:28 by Lupis Chase) SIRS (systemic inflammatory response syndrome) (Acute) Viral syndrome (Acute) Subjective: Seated upright in the ED bed, fatigued appearance. Objective: Physical Examination: General: awake, alert, oriented x 3 and cooperative, seated upright in the ED bed in no apparent distress. Skin: flushed color, turgor, no icterus, cyanosis. HEENT: AT/NC, EOMI, PERRLA, dry MM, no carotid bruits or JVD noted, no TTP facial sinus regions, OP w/ mild posterior erythema/post-nasal drip irritation. Lungs: CTA bilaterally, moderate effort, mild decrease BL bases, no rales, ronchi or wheezing. Heart: Regular rate and rhythm; no gallop, rub audible. Abdomen: soft, obese, NTTP, ND, normal BS, no HSM. Extremities: no cyanosis, clubbing, or edema. Neurological: patient awake, alert, oriented x 3; cognitive function intact; pupils equally reactive to light and accomodation; cranial nerves II-XII grossly normal, moving all 4 extremities, no focal deficits, strength moderately globally decreased secondary to acute presentation. Psychiatric: affect appears flat, fatigued, no acute evidence of depressive or anxiety feelings. - Physical Exam Vital Signs Temp Pulse Resp BP Pulse Ox 99.5 F H 82 16 131/69 H 96 05/01/18 21:41 05/01/18 23:13 05/01/18 23:13 05/01/18 23:13 05/01/18 23:13 Oxygen Delivery Method Room Air Weight: 209 lb 3.499 oz Body Mass Index (BMI) 37.0 Microbiology Past 72 Hours 05/01/18 20:15 Influenza Types A,B Direct FA (MARTHA) - Final Mucosa - Nose Laboratory Tests Past 24 Hrs 05/01/18 05/01/18 05/01/18 20:25 20:36 20:36 WBC 5.2 RBC 4.73 Hgb 12.7 Hct 39.2 MCV 82.9 MCH 26.8 L MCHC 32.4 RDW 14.0 RDW Differential 42.4 Plt Count 238 MPV 10.1 Immature Gran % (Auto) 0.400 Neut % (Auto) 72.5 H Lymph % (Auto) 13.5 L [place] % (Auto) 10.1 H Eos % (Auto) 3.5 Baso % (Auto) 0.0 Absolute Neuts (auto) 3.8 Absolute Lymphs (auto) 0.70 L Total Counted Not Reportable Sodium 132 L Potassium 3.6 Chloride 100 Carbon Dioxide 22.0 Anion Gap 10 BUN 17 Creatinine 1.42 H Estim Creat Clear Calc 33.54 Est GFR (MDRD) Af Amer 48 L Est GFR (MDRD) Non-Af 40 L BUN/Creatinine Ratio 12.0 Glucose 95 Lactic Acid 2.8 H Calcium 9.2 Total Bilirubin 0.50 Direct Bilirubin 0.12 AST 28 ALT 33 Alkaline Phosphatase 114 Total Protein 8.2 Albumin 4.0 Globulin 4.2 Urine Color Urine Clarity Urine pH Ur Specific [place] Urine Protein Urine Glucose (UA) Urine Ketones Urine Occult Blood Urine Nitrite Urine Bilirubin Urine Urobilinogen Ur Leukocyte Esterase Urine RBC Urine WBC Ur Squamous Epith Cells Urine Bacteria Urine Mucus 05/01/18 21:50 WBC RBC Hgb Hct MCV MCH MCHC RDW RDW Differential Plt Count MPV Immature Gran % (Auto) Neut % (Auto) Lymph % (Auto) [place] % (Auto) Eos % (Auto) Baso % (Auto) Absolute Neuts (auto) Absolute Lymphs (auto) Total Counted Sodium Potassium Chloride Carbon Dioxide Anion Gap BUN Creatinine Estim Creat Clear Calc Est GFR (MDRD) Af Amer Est GFR (MDRD) Non-Af BUN/Creatinine Ratio Glucose Lactic Acid Calcium Total Bilirubin Direct Bilirubin AST ALT Alkaline Phosphatase Total Protein Albumin Globulin Urine Color Yellow Urine Clarity Clear Urine pH 8.0 Ur Specific [place] 1.015 Urine Protein 15 H Urine Glucose (UA) Normal Urine Ketones 15 H Urine Occult Blood Negative Urine Nitrite Negative Urine Bilirubin Negative Urine Urobilinogen 1 H Ur Leukocyte Esterase 25 H Urine RBC 0 SEEN Urine WBC 0-5 SEEN Ur Squamous Epith Cells 5-10 SEEN Urine Bacteria 0 SEEN Urine Mucus 0 SEEN Assessment/Plan All Active Problems (Last Reviewed 04/28/18 @ 10:28 by Lupis Chase) SIRS (systemic inflammatory response syndrome) (Acute) Viral syndrome (Acute) Sinusitis, acute (Acute) The patient is a 62 y/o F w/ PMHx: Depression and Anxiety, HTN, HLD, Obesity, Prediabetes, GERD w/ Hiatal Hernia who presents to the [facility] ED on 05/01/18 with history of general malaise, fatigue, URI symptoms including rhinorrhea, postnasal drip as well as initially facial pressure with evaluation at urgent care the Friday prior with diagnosis at that time sinusitis treated with oral Bactrim with now onset myalgias, arthralgias, fevers and chills as well as home BP 90 over 60s. (1) SIRS Criteria w/ Elevated Lactic Acid secondary to Suspected Acute Viral Syndrome, complicated by #2 NANCI: ED workup included T102.3, heart rate 90, BP 129/77, respiratory rate 22, 98% on room air, CBC with W BC 5.2, hemoglobin 12.7, platelet 238 without market left shift, CMP with sodium 132, BUN/creatinine 17/1.42, lactic acid 2.8, urinalysis not marked appearing, CT brain with no acute findings, CT face and sinus with no evidence of acute sinus abnormality or soft tissue inflammation, chest x-ray with no acute findings, rapid influenza negative, blood culture x2 pending per ED, respiratory viral panel pending. Will admit to [facility], maintain on IVFs, continue supportive care interventions, HOB, IS parameters w/ pending Bld cx x 2 from ED. Defer abx therapy as suspect viral syndrome and suspect lactic acid elevation secondary to NANCI with repeat LA pending. (2) Acute kidney injury: Secondary to poor oral intake, dehydration. Admission BUN/Cr 17/1.42, prior baseline creatinine noted to be 0.9. Will hydrate, hold nephrotoxic medications and repeat chemistry in AM. If no improvement would plan FeNa assessment and renal US. (3) ? Recent Acute Sinusitis: Noted evaluation at , treated w/ bactrim, CT head and facial/sinus without acute findings, suspect viral syndrome, will defer continuation bactrim, if needed may add flonase. (4) Prediabetes mellitus type II: HgBA1c pending, allow clears and ADAT to ADA diet, accu checks w/ ISS. (5) Obesity: Weight loss and lifestyle changes encouraged. (6) Anxiety and depression: Continue home Lexapro regimen. (7) Hypertension: Continue home regimen including metoprolol with hold parameters, PRN hydralazine. (8) Hyperlipidemia: Continue home statin regimen. (9) GERD w/ Hiatal Hernia: PPI. (10) DVT Prophylaxis: SCDs, renally dosed lovenox. Code Visit OBSV E&M: 01909 Initial observation care L3
[2018-05-02] VITALS (10 sets, daily range): BP systolic 106–136; BP diastolic 62–74; PULSE 71–84; RESP 14–18; TEMP 37.1–39; O2SAT 94–100; BMI 36.0
[2018-05-02 00:40] LABS: Reflex Lactate? Y
[2018-05-02] MEDS: Mag Hydrox/Al Hydrox/Simeth 30 ML UDC PO ×2 (00:41→15:10)
[2018-05-02] MEDS: 0.9% Normal Saline 1,000 ML 150 ML IV ×4 (00:41→21:29)
[2018-05-02 01:21] LABS: Magnesium 1.7 mg/dL (1.6-2.6)
[2018-05-02 01:26] LABS: Lactic Acid 0.8 mmol/L (0.4-2.0)
[2018-05-02 01:43] LABS: Hemoglobin A1c 5.8 % (4.2-6.3)
[2018-05-02 07:06] LABS: Bedside Glucose 95 mg/dL (70-110)
[2018-05-02 07:15] LABS: Absolute Lymphocyte Count 0.49 X10^3/ul (0.83-4.51); Absolute Neutrophil Count 2.2 X10^3/uL (2.0-7.7); Basophil# 0.01 X10^3/uL; Basophil% 0.3 % (0-1); Eosinophil# 0.21 X10^3/uL; Eosinophils% 6.2 % (0-5); Hematocrit 33.4 % (37-47); Hemoglobin 10.8 g/dl (12.0-15.0); Lymphocyte # 0.49 X10^3/ul (4.0); Lymphocyte % 14.4 % (19-41); Mean Corp Hgb Conc 32.3 g/gl (32-36); Mean Corpuscular Hgb 27.3 pg (27.0-32.0); Mean Corpuscular Volume 84.3 fL (81-99); Mean Platelet Vol. 9.9 fl (6.2-12.0); Monocyte# 0.54 X10^3/uL; Monocyte% 15.8 % (0-10); Neutrophil # 2.16 X10^3/uL (2.7-7.7); Neutrophil % 63.3 % (47-70); Platelet Count 174 K/mm3 (150-450); RBC Distribution Width CV 14.1 % (11.6-14.6); RBC Distribution Width SD 42.6 fl (35.1-43.9); Red Blood Count 3.96 M/mm3 (4.2-5.4); White Blood Count 3.4 K/mm3 (4.4-11.0)
[2018-05-02 07:16] LABS: Differential Indicated SCAN CRITERIA MET; POSITIVE COUNT NO; POSITIVE DIFFERENTIAL YES; POSITIVE MORPHOLOGY NO
[2018-05-02 07:26] LABS: Anion Gap 9 (5-15); BUN 13 mg/dL (7-18); BUN/Creat Ratio 11.3 RATIO (10-20); Calcium,Total 7.9 mg/dL (8.5-10.1); Chloride 110 mmol/L (98-107); Creatinine, Serum 1.15 mg/dL (0.55-1.02); EST Glomerular Filtration Rate 51 mL/min (>60); Est Glom Filt Rate - Afr Amer 61 mL/min (>60); Estimated Creatinine Clearance 41.42 ml/min; Glucose 96 mg/dL (74-106); Sodium Level 141 mmol/L (136-145)
[2018-05-02] MEDS: Acetaminophen 325 MG Tablet 650 MG PO ×2 (07:39→18:40)
--- NOTE | 2018-05-02 09:03 | PCM.PN.HOSP ---
Patient Problems: Active and Suspected Problems (Last Reviewed 04/28/18 @ 10:28 by Lupis Chase) SIRS (systemic inflammatory response syndrome) (Acute) Viral syndrome (Acute) Subjective: Patient seen and examined. She was admitted yesterday with a complaint of generalized malaise and upper respiratory symptoms. She was found to have lactic acidosis and AK I which was thought to be due to dehydration. She is to be managed for NANCI and viral upper respiratory tract infection. She still complains of weakness and a sore throat. She denies any fever but admits to chills. He denies any cough or chest pain or shortness of breath. She denies any diarrhea vomiting. Review of systems otherwise negative. Labs and vitals reviewed. Vitals/I&O's: Vital Signs Temp Pulse Resp BP Pulse Ox 99.4 F H 79 18 127/74 H 99 05/02/18 07:00 05/02/18 07:00 05/02/18 07:00 05/02/18 07:00 05/02/18 07:00 Oxygen Delivery Method Room Air Weight: 203 lb 7.787 oz Body Mass Index (BMI) 36.0 Intake and Output for Last 24 Hours 04/30/18 05/01/18 05/02/18 23:59 23:59 23:59 Intake Total 1219 / 1219 Output Total 300 / 300 Balance 919 / 919 General: Alert, Oriented x3, Cooperative, No apparent distress HEENT: Atraumatic, PERRLA, EOMI, Normocephalic Oral: Moist Mucosa Neck: Supple, No JVD, Negative Carotid Bruits Lungs: Clear to auscultation, Normal air movement, No rhonchi, No wheeze, No rales Cardiovascular: Regular rate, Regular Rhythm, Normal S1, Normal S2, No murmurs Abdomen: Bowel Sounds Present, Soft, Non Tender, Non-Distended, No Hepato-splenomegaly Extremities: No clubbing, No cyanosis, No edema, Capillary Refill Less than 3 Seconds Skin: No rashes, No breakdown Musculoskeletal: No Tenderness to Palpation of Joints or Extremities Lymphatic: No Cervical, Supraclavicular, or Inguinal Adenopathy Neurological: Cranial nerves II-XII grossly intact, Neuro grossly intact, Motor Exam 5/5 strength throughout Psych/Mental Status: Normal Affect, Appropriate, Alert and oriented to time, place, person, mood and affect Microbiology Past 72 Hours 05/02/18 05:20 Stool C. difficile DNA Amplification - Final 05/01/18 20:15 Mucosa - Nose Influenza Types A,B Direct FA (MARTHA) - Final Laboratory Results 05/01/18 20:25: WBC 5.2, RBC 4.73, Hgb 12.7, Hct 39.2, MCV 82.9, MCH 26.8 L, MCHC 32.4, RDW 14.0, RDW Differential 42.4, Plt Count 238, MPV 10.1, Immature Gran % (Auto) 0.400, Neut % (Auto) 72.5 H, Lymph % (Auto) 13.5 L, [place] % (Auto) 10.1 H, Eos % (Auto) 3.5, Baso % (Auto) 0.0, Absolute Neuts (auto) 3.8, Absolute Lymphs (auto) 0.70 L, Total Counted Not Reportable 05/01/18 20:25: Hemoglobin A1c 5.8 05/01/18 20:36: Sodium 132 L, Potassium 3.6, Chloride 100, Carbon Dioxide 22.0, Anion Gap 10, BUN 17, Creatinine 1.42 H, Estim Creat Clear Calc 33.54, Est GFR (MDRD) Af Amer 48 L, Est GFR (MDRD) Non-Af 40 L, BUN/Creatinine Ratio 12.0, Glucose 95, Calcium 9.2, Total Bilirubin 0.50, Direct Bilirubin 0.12, AST 28, ALT 33, Alkaline Phosphatase 114, Total Protein 8.2, Albumin 4.0, Globulin 4.2 05/01/18 20:36: Lactic Acid 2.8 H 05/01/18 20:36: Magnesium 1.7 05/01/18 21:50: Urine Color Yellow, Urine Clarity Clear, Urine pH 8.0, Ur Specific [place] 1.015, Urine Protein 15 H, Urine Glucose (UA) Normal, Urine Ketones 15 H, Urine Occult Blood Negative, Urine Nitrite Negative, Urine Bilirubin Negative, Urine Urobilinogen 1 H, Ur Leukocyte Esterase 25 H, Urine RBC 0 SEEN, Urine WBC 0-5 SEEN, Ur Squamous Epith Cells 5-10 SEEN, Urine Bacteria 0 SEEN, Urine Mucus 0 SEEN 05/02/18 00:35: Lactic Acid 0.8 05/02/18 06:26: WBC 3.4 L, RBC 3.96 L, Hgb 10.8 L, Hct 33.4 L, MCV 84.3, MCH 27.3, MCHC 32.3, RDW 14.1, RDW Differential 42.6, Plt Count 174, MPV 9.9, Immature Gran % (Auto) 0.000, Neut % (Auto) 63.3, Lymph % (Auto) 14.4 L, [place] % (Auto) 15.8 H, Eos % (Auto) 6.2 H, Baso % (Auto) 0.3, Absolute Neuts (auto) 2.2, Absolute Lymphs (auto) 0.49 L, Total Counted Not Reportable 05/02/18 06:26: Sodium 141, Potassium 4.0, Chloride 110 H, Carbon Dioxide 22.0, Anion Gap 9, BUN 13, Creatinine 1.15 H, Estim Creat Clear Calc 41.42, Est GFR (MDRD) Af Amer 61, Est GFR (MDRD) Non-Af 51 L, BUN/Creatinine Ratio 11.3, Glucose 96, Calcium 7.9 L 05/02/18 06:54: POC Glucose [address] 05/01/18 20:06 IMPRESSION: No evidence of acute intracranial bleed, mass or ischemia. Electronically Signed: Roel Coyne DO at 21:38 EST , Service support , Facial/Sinus 05/01/18 20:08 IMPRESSION: No evidence of acute sinus abnormality or soft tissue inflammation. Electronically Signed: Roel Coyne DO at 21:42 EST , Service support , Chest X-Ray 05/01/18 20:45 IMPRESSION: Normal x-ray examination of the chest. Electronically Signed: Toñito Ruiz MD at 22:00 EST , Service support , Current Medications Acetaminophen (Tylenol) 650 mg PO Q6H PRN PRN PRN Reason: Non-cardiac pain (mod-severe) Last Admin: 05/02/18 07:39 Dose: 650 mg Al Hydroxide/Mg Hydroxide (Mylanta Ii) 30 ml PO Q6H PRN PRN PRN Reason: Gastric burning Atorvastatin Calcium (Lipitor) 10 mg PO QHS [facility] Enoxaparin Sodium (Lovenox) 30 mg SC DAILY@1000 CHARLES Escitalopram Oxalate (Lexapro) 20 mg PO DAILY [facility] Famotidine (Pepcid) 20 mg PO BID [facility] Hydralazine HCl (Apresoline Iv) 10 mg IV Q4H PRN PRN PRN Reason: SBP > 160 Sodium Chloride () 1,000 mls @ 150 mls/hr IV .Q6H40M CHARLES Last Admin: 05/02/18 07:39 Dose: 150 mls/hr Insulin Human Lispro (Humalog Kwikpen (Bkc)) 0 unit SC ACHS [facility]; Protocol Last Admin: 05/02/18 07:08 Dose: Not Given Liothyronine Sodium (Cytomel) 5 mcg PO BID [facility] Magnesium Hydroxide (Milk Of Magnesia) 30 ml PO DAILY PRN PRN PRN Reason: Constipation Metoprolol Succinate (Toprol Xl (Beta Molly)) 12.5 mg PO DAILY [facility] Nortriptyline HCl (Pamelor) 10 mg PO QHS [facility] Nortriptyline HCl (Pamelor) 25 mg PO QHS [facility] Nutritional Formula (Lactose Free) (Ensure Clear) 120 ml PO 4X/DAY [facility] Ondansetron HCl (Zofran) 4 mg IV Q8H PRN PRN PRN Reason: NAUSEA Pantoprazole Sodium (Protonix) 20 mg PO DAILY [facility] Promethazine HCl (Phenergan) 12.5 mg IV Q6H PRN PRN PRN Reason: NAUSEA/VOMITING Sodium Chloride () 5 - 30 ml IV UD PRN PRN Reason: SALINE FLUSH Medical Necessity - Tobacco Use Smoking Status: Never smoker Tobacco Use: Non-smoker Assessment/Plan All Active Problems (Last Reviewed 04/28/18 @ 10:28 by Lupis Chase) SIRS (systemic inflammatory response syndrome) (Acute) Viral syndrome (Acute) Sinusitis, acute (Acute) 1.URTI, likely viral SIRS criteria has resolved. She does have a fever, with temp of 99.4F this morning. She is not tachycardic or tachypneic and does not have leukocytosis. She does complain of a sore throat lungs are clear to auscultation. CBC shows white cell count of 3.4. Chest x-ray done on admission was negative. Respiratory panel is pending. Continue supportive treatment with IV fluids and breathing treatments. Tylenol for fever and malaise. 2. NANCI: resolving. was likely pre-renal due to poor intake. Cr was 1.42 on admission; now down to 1.15 will continue IVF and monitor 3. Lactic acidosis: likely due to hypotension from decreased intake. Resolved. Trended down to 0.8 from 2.8 on admission 4. Hyponatremia: Resolved 5. Anxiety and depression: On Lexapro 6. Prediabetes mellitus: A1c is 5.8. ADA diet. Stop Accu-Cheks this patient as needed. 7. Hypertension: On metoprolol. IV hydralazine as needed 8. Hyperlipidemia: On statin 9. GERD with hiatal hernia: PPI 10 Hypothyroidism: On liothyronine 5 mg twice daily DVT prophylaxis:. Renally dosed Lovenox Code Visit OBSV E&M: 18317 Subsequent observation care L3
--- NOTE | 2018-05-02 09:13 | PN_ITS ---
Patient Problems: Active and Suspected Problems (Last Reviewed 04/28/18 @ 10:28 by Lupis Chase) SIRS (systemic inflammatory response syndrome) (Acute) Viral syndrome (Acute) Subjective: Patient seen and examined. She was admitted yesterday with a complaint of generalized malaise and upper respiratory symptoms. She was found to have lactic acidosis and AK I which was thought to be due to dehydration. She is to be managed for NANCI and viral upper respiratory tract infection. She still complains of weakness and a sore throat. She denies any fever but admits to chills. He denies any cough or chest pain or shortness of breath. She denies any diarrhea vomiting. Review of systems otherwise negative. Labs and vitals reviewed. Vitals/I&O's: Vital Signs Temp Pulse Resp BP Pulse Ox 99.4 F H 79 18 127/74 H 99 05/02/18 07:00 05/02/18 07:00 05/02/18 07:00 05/02/18 07:00 05/02/18 07:00 Oxygen Delivery Method Room Air Weight: 203 lb 7.787 oz Body Mass Index (BMI) 36.0 Intake and Output for Last 24 Hours 04/30/18 05/01/18 05/02/18 23:59 23:59 23:59 Intake Total 1219 / 1219 Output Total 300 / 300 Balance 919 / 919 General: Alert, Oriented x3, Cooperative, No apparent distress HEENT: Atraumatic, PERRLA, EOMI, Normocephalic Oral: Moist Mucosa Neck: Supple, No JVD, Negative Carotid Bruits Lungs: Clear to auscultation, Normal air movement, No rhonchi, No wheeze, No rales Cardiovascular: Regular rate, Regular Rhythm, Normal S1, Normal S2, No murmurs Abdomen: Bowel Sounds Present, Soft, Non Tender, Non-Distended, No Hepato- splenomegaly Extremities: No clubbing, No cyanosis, No edema, Capillary Refill Less than 3 Seconds Skin: No rashes, No breakdown Musculoskeletal: No Tenderness to Palpation of Joints or Extremities Lymphatic: No Cervical, Supraclavicular, or Inguinal Adenopathy Neurological: Cranial nerves II-XII grossly intact, Neuro grossly intact, Motor Exam 5/5 strength throughout Psych/Mental Status: Normal Affect, Appropriate, Alert and oriented to time, place, person, mood and affect Microbiology Past 72 Hours 05/02/18 05:20 Stool C. difficile DNA Amplification - Final 05/01/18 20:15 Mucosa - Nose Influenza Types A,B Direct FA (MARTHA) - Final Laboratory Results 05/01/18 20:25: WBC 5.2, RBC 4.73, Hgb 12.7, Hct 39.2, MCV 82.9, MCH 26.8 L, MCHC 32.4, RDW 14.0, RDW Differential 42.4, Plt Count 238, MPV 10.1, Immature Gran % (Auto) 0.400, Neut % (Auto) 72.5 H, Lymph % (Auto) 13.5 L, [place] % (Auto) 10.1 H, Eos % (Auto) 3.5, Baso % (Auto) 0.0, Absolute Neuts (auto) 3.8, Absolute Lymphs (auto) 0.70 L, Total Counted Not Reportable 05/01/18 20:25: Hemoglobin A1c 5.8 05/01/18 20:36: Sodium 132 L, Potassium 3.6, Chloride 100, Carbon Dioxide 22.0, Anion Gap 10, BUN 17, Creatinine 1.42 H, Estim Creat Clear Calc 33.54, Est GFR (MDRD) Af Amer 48 L, Est GFR (MDRD) Non-Af 40 L, BUN/Creatinine Ratio 12.0, Glucose 95, Calcium 9.2, Total Bilirubin 0.50, Direct Bilirubin 0.12, AST 28, ALT 33, Alkaline Phosphatase 114, Total Protein 8.2, Albumin 4.0, Globulin 4.2 05/01/18 20:36: Lactic Acid 2.8 H 05/01/18 20:36: Magnesium 1.7 05/01/18 21:50: Urine Color Yellow, Urine Clarity Clear, Urine pH 8.0, Ur Specific Model 1.015, Urine Protein 15 H, Urine Glucose (UA) Normal, Urine Ketones 15 H, Urine Occult Blood Negative, Urine Nitrite Negative, Urine Bilirubin Negative, Urine Urobilinogen 1 H, Ur Leukocyte Esterase 25 H, Urine RBC 0 SEEN, Urine WBC 0-5 SEEN, Ur Squamous Epith Cells 5-10 SEEN, Urine Bacteria 0 SEEN, Urine Mucus 0 SEEN 05/02/18 00:35: Lactic Acid 0.8 05/02/18 06:26: WBC 3.4 L, RBC 3.96 L, Hgb 10.8 L, Hct 33.4 L, MCV 84.3, MCH 27.3, MCHC 32.3, RDW 14.1, RDW Differential 42.6, Plt Count 174, MPV 9.9, Immature Gran % (Auto) 0.000, Neut % (Auto) 63.3, Lymph % (Auto) 14.4 L, [place] % (Auto) 15.8 H, Eos % (Auto) 6.2 H, Baso % (Auto) 0.3, Absolute Neuts (auto) 2.2, Absolute Lymphs (auto) 0.49 L, Total Counted Not Reportable 05/02/18 06:26: Sodium 141, Potassium 4.0, Chloride 110 H, Carbon Dioxide 22.0, Anion Gap 9, BUN 13, Creatinine 1.15 H, Estim Creat Clear Calc 41.42, Est GFR (MDRD) Af Amer 61, Est GFR (MDRD) Non-Af 51 L, BUN/Creatinine Ratio 11.3, Glucose 96, Calcium 7.9 L 05/02/18 06:54: POC Glucose [address] 05/01/18 20:06 IMPRESSION: No evidence of acute intracranial bleed, mass or ischemia. Electronically Signed: Roel Coyne DO at 21:38 EST , Service support , Facial/Sinus 05/01/18 20:08 IMPRESSION: No evidence of acute sinus abnormality or soft tissue inflammation. Electronically Signed: Roel Coyne DO at 21:42 EST , Service support , Chest X-Ray 05/01/18 20:45 IMPRESSION: Normal x-ray examination of the chest. Electronically Signed: Toñito Ruiz MD at 22:00 EST , Service support , Current Medications Acetaminophen (Tylenol) 650 mg PO Q6H PRN PRN PRN Reason: Non-cardiac pain (mod-severe) Last Admin: 05/02/18 07:39 Dose: 650 mg Al Hydroxide/Mg Hydroxide (Mylanta Ii) 30 ml PO Q6H PRN PRN PRN Reason: Gastric burning Atorvastatin Calcium (Lipitor) 10 mg PO QHS [facility] Enoxaparin Sodium (Lovenox) 30 mg SC DAILY@1000 [facility] Escitalopram Oxalate (Lexapro) 20 mg PO DAILY [facility] Famotidine (Pepcid) 20 mg PO BID [facility] Hydralazine HCl (Apresoline Iv) 10 mg IV Q4H PRN PRN PRN Reason: SBP > 160 Sodium Chloride () 1,000 mls @ 150 mls/hr IV .Q6H40M [facility] Last Admin: 05/02/18 07:39 Dose: 150 mls/hr Insulin Human Lispro (Humalog Kwikpen (Bkc)) 0 unit SC ACHS [facility]; Protocol Last Admin: 05/02/18 07:08 Dose: Not Given Liothyronine Sodium (Cytomel) 5 mcg PO BID [facility] Magnesium Hydroxide (Milk Of Magnesia) 30 ml PO DAILY PRN PRN PRN Reason: Constipation Metoprolol Succinate (Toprol Xl (Beta Molly)) 12.5 mg PO DAILY [facility] Nortriptyline HCl (Pamelor) 10 mg PO QHS [facility] Nortriptyline HCl (Pamelor) 25 mg PO QHS [facility] Nutritional Formula (Lactose Free) (Ensure Clear) 120 ml PO 4X/DAY [facility] Ondansetron HCl (Zofran) 4 mg IV Q8H PRN PRN PRN Reason: NAUSEA Pantoprazole Sodium (Protonix) 20 mg PO DAILY [facility] Promethazine HCl (Phenergan) 12.5 mg IV Q6H PRN PRN PRN Reason: NAUSEA/VOMITING Sodium Chloride () 5 - 30 ml IV UD PRN PRN Reason: SALINE FLUSH Medical Necessity - Tobacco Use Smoking Status: Never smoker Tobacco Use: Non-smoker Assessment/Plan All Active Problems (Last Reviewed 04/28/18 @ 10:28 by Lupis Chase) SIRS (systemic inflammatory response syndrome) (Acute) Viral syndrome (Acute) Sinusitis, acute (Acute) 1.URTI, likely viral * SIRS criteria has resolved. She does have a fever, with temp of 99.4F this morning. She is not tachycardic or tachypneic and does not have leukocytosis. * She does complain of a sore throat lungs are clear to auscultation. * CBC shows white cell count of 3.4. Chest x-ray done on admission was negative. * Respiratory panel is pending. * Continue supportive treatment with IV fluids and breathing treatments. Tylenol for fever and malaise. * 2. NANCI: * resolving. was likely pre-renal due to poor intake. * Cr was 1.42 on admission; now down to 1.15 * will continue IVF and monitor * 3. Lactic acidosis: likely due to hypotension from decreased intake. Resolved. Trended down to 0.8 from 2.8 on admission 4. Hyponatremia: Resolved 5. Anxiety and depression: On Lexapro 6. Prediabetes mellitus: A1c is 5.8. ADA diet. Stop Accu-Cheks this patient as needed. 7. Hypertension: On metoprolol. IV hydralazine as needed 8. Hyperlipidemia: On statin 9. GERD with hiatal hernia: PPI 10 Hypothyroidism: On liothyronine 5 mg twice daily DVT prophylaxis:. Renally dosed Lovenox Code Visit OBSV E&M: [id number] Subsequent observation care L3
[2018-05-02] MEDS: Famotidine 20 MG Tablet PO ×2 (09:45→21:29)
[2018-05-02] MEDS: Pantoprazole Sodium 20 MG Tablet PO (09:45)
[2018-05-02] MEDS: Escitalopram Oxalate 20 MG Tablet PO (09:45)
[2018-05-02] MEDS: 0.9% NaCl Peripheral Flush Adult/Peds IV (09:45)
[2018-05-02] MEDS: Metoprolol(XL)Succ 25 MG Tablet 12.5 MG PO (09:46)
[2018-05-02] MEDS: Enoxaparin 30 MG/0.3 ML Syringe SC (09:48)
[2018-05-02 12:35] LABS: Bedside Glucose 102 mg/dL (70-110)
[2018-05-02 16:50] LABS: Bedside Glucose 70 mg/dL (70-110)
[2018-05-02] MEDS: Nortriptyline 25 MG Capsule PO (21:29)
[2018-05-02] MEDS: Nortriptyline 10 MG Capsule PO (21:29)
[2018-05-02] MEDS: Atorvastatin Calcium 10 MG Tablet PO (21:29)
[2018-05-02 23:10] LABS: Bedside Glucose 115 mg/dL (70-110)
[2018-05-03] VITALS (7 sets, daily range): BP systolic 122–148; BP diastolic 62–76; PULSE 63–74; RESP 14–18; TEMP 36.6–37.4; O2SAT 97–100
[2018-05-03] MEDS: Acetaminophen 325 MG Tablet 650 MG PO (03:15)
[2018-05-03] MEDS: 0.9% Normal Saline 1,000 ML 150 ML IV (04:31)
[2018-05-03 05:44] LABS: Absolute Neutrophil Count 1.5 X10^3/uL (2.0-7.7); Basophil# 0.01 X10^3/uL; Basophil% 0.3 % (0-1); Hematocrit 34.6 % (37-47); Hemoglobin 11.1 g/dl (12.0-15.0); Lymphocyte % 24.4 % (19-41); Mean Corp Hgb Conc 32.1 g/gl (32-36); Mean Corpuscular Hgb 27.1 pg (27.0-32.0); Mean Corpuscular Volume 84.4 fL (81-99); Mean Platelet Vol. 9.8 fl (6.2-12.0); Monocyte# 0.47 X10^3/uL; Monocyte% 16.4 % (0-10); Neutrophil # 1.48 X10^3/uL (2.7-7.7); Neutrophil % 51.6 % (47-70); Platelet Count 172 K/mm3 (150-450); RBC Distribution Width CV 14.2 % (11.6-14.6); RBC Distribution Width SD 42.9 fl (35.1-43.9); White Blood Count 2.9 K/mm3 (4.4-11.0)
[2018-05-03 05:46] LABS: POSITIVE COUNT NO; POSITIVE DIFFERENTIAL NO; POSITIVE MORPHOLOGY NO
[2018-05-03 05:51] LABS: Anion Gap 8 (5-15); BUN 8 mg/dL (7-18); BUN/Creat Ratio 8.4 RATIO (10-20); Calcium,Total 8.4 mg/dL (8.5-10.1); Chloride 109 mmol/L (98-107); Creatinine, Serum 0.95 mg/dL (0.55-1.02); EST Glomerular Filtration Rate 63 mL/min (>60); Est Glom Filt Rate - Afr Amer 77 mL/min (>60); Estimated Creatinine Clearance 50.14 ml/min; Glucose 88 mg/dL (74-106); Potassium 3.6 mmol/L (3.5-5.1); Sodium Level 141 mmol/L (136-145)
[2018-05-03 07:20] LABS: Bedside Glucose 82 mg/dL (70-110)
[2018-05-03] MEDS: Escitalopram Oxalate 20 MG Tablet PO (07:57)
[2018-05-03] MEDS: Famotidine 20 MG Tablet PO ×2 (07:57→22:59)
[2018-05-03] MEDS: Pantoprazole Sodium 20 MG Tablet PO (07:57)
[2018-05-03] MEDS: Metoprolol(XL)Succ 25 MG Tablet 12.5 MG PO (07:57)
[2018-05-03] MEDS: Enoxaparin 30 MG/0.3 ML Syringe SC (08:02)
--- NOTE | 2018-05-03 09:43 | PCM.PN.HOSP ---
Patient Problems: Active and Suspected Problems (Last Reviewed 04/28/18 @ 10:28 by Lupis Chase) SIRS (systemic inflammatory response syndrome) (Acute) Viral syndrome (Acute) Subjective: Patient seen and examined. She feels much better today though she does complain of some weakness. She denies any fever or chills, any cough or chest pain, any shortness of breath or vomiting. She does admit to about 2 episodes of diarrhea overnight. Labs and vitals reviewed. She has remained febrile, with temp peaking at 101F overnight. Vitals/I&O's: Vital Signs Temp Pulse Resp BP Pulse Ox 97.8 F 63 18 122/62 H 97 05/03/18 07:53 05/03/18 07:57 05/03/18 07:53 05/03/18 07:53 05/03/18 07:53 Oxygen Delivery Method Room Air Weight: 203 lb 7.787 oz Body Mass Index (BMI) 36.0 Intake and Output for Last 24 Hours 05/01/18 05/02/18 05/03/18 23:59 23:59 23:59 Intake Total 5523 / 5523 2413 / 2413 Output Total 3300 / 3300 1800 / 1800 Balance 2223 / 2223 613 / 613 General: Alert, Oriented x3, Cooperative, No apparent distress HEENT: Atraumatic, PERRLA, EOMI, Normocephalic Oral: Moist Mucosa Neck: Supple, No JVD, Negative Carotid Bruits Lungs: Clear to auscultation, Normal air movement, No rhonchi, No wheeze, No rales Cardiovascular: Regular rate, Regular Rhythm, Normal S1, Normal S2, No murmurs Abdomen: Bowel Sounds Present, Soft, Non Tender, Non-Distended, No Hepato-splenomegaly Extremities: No clubbing, No cyanosis, No edema, Capillary Refill Less than 3 Seconds Skin: No rashes, No breakdown Musculoskeletal: No Tenderness to Palpation of Joints or Extremities Lymphatic: No Cervical, Supraclavicular, or Inguinal Adenopathy Neurological: Cranial nerves II-XII grossly intact, Neuro grossly intact, Motor Exam 5/5 strength throughout Psych/Mental Status: Normal Affect, Appropriate, Alert and oriented to time, place, person, mood and affect Microbiology Past 72 Hours 05/02/18 05:20 Stool Enteric Bacteriology - Final 05/02/18 00:01 Mucosa - Nose Respiratory Panel (PCR) - Final 05/02/18 05:20 Stool C. difficile DNA Amplification - Final 05/01/18 20:15 Mucosa - Nose Influenza Types A,B Direct FA (MARTHA) - Final Laboratory Results 05/02/18 12:22: POC Glucose 102 05/02/18 16:12: POC Glucose 70 05/02/18 23:03: POC Glucose 115 H 05/03/18 05:02: WBC 2.9 L, RBC 4.10 L, Hgb 11.1 L, Hct 34.6 L, MCV 84.4, MCH 27.1, MCHC 32.1, RDW 14.2, RDW Differential 42.9, Plt Count 172, MPV 9.8, Immature Gran % (Auto) 0.300, Neut % (Auto) 51.6, Lymph % (Auto) 24.4, [place] % (Auto) 16.4 H, Eos % (Auto) 7.0 H, Baso % (Auto) 0.3, Absolute Neuts (auto) 1.5 L, Absolute Lymphs (auto) 0.70 L, Total Counted Not Reportable 05/03/18 05:02: Sodium 141, Potassium 3.6, Chloride 109 H, Carbon Dioxide 24.0, Anion Gap 8, BUN 8, Creatinine 0.95, Estim Creat Clear Calc 50.14, Est GFR (MDRD) Af Amer 77, Est GFR (MDRD) Non-Af 63, BUN/Creatinine Ratio 8.4 L, Glucose 88, Calcium 8.4 L 05/03/18 06:25: POC Glucose 82 Current Medications Acetaminophen (Tylenol) 650 mg PO Q6H PRN PRN PRN Reason: Non-cardiac pain (mod-severe) Last Admin: 05/03/18 03:15 Dose: 650 mg Al Hydroxide/Mg Hydroxide (Mylanta Ii) 30 ml PO Q6H PRN PRN PRN Reason: Gastric burning Last Admin: 05/02/18 15:10 Dose: 30 ml Atorvastatin Calcium (Lipitor) 10 mg PO QHS [facility] Last Admin: 05/02/18 21:29 Dose: 10 mg Enoxaparin Sodium (Lovenox) 30 mg SC DAILY@1000 [facility] Last Admin: 05/03/18 08:02 Dose: 30 mg Escitalopram Oxalate (Lexapro) 20 mg PO DAILY [facility] Last Admin: 05/03/18 07:57 Dose: 20 mg Famotidine (Pepcid) 20 mg PO BID [facility] Last Admin: 05/03/18 07:57 Dose: 20 mg Hydralazine HCl (Apresoline Iv) 10 mg IV Q4H PRN PRN PRN Reason: SBP > 160 Sodium Chloride () 1,000 mls @ 150 mls/hr IV .Q6H40M [facility] Last Admin: 05/03/18 04:31 Dose: 150 mls/hr Insulin Human Lispro (Humalog Kwikpen (Bkc)) 0 unit SC [facility]; Protocol Last Admin: 05/03/18 06:26 Dose: Not Given Liothyronine Sodium (Cytomel) 5 mcg PO BID [facility] Magnesium Hydroxide (Milk Of Magnesia) 30 ml PO DAILY PRN PRN PRN Reason: Constipation Metoprolol Succinate (Toprol Xl (Beta Molly)) 12.5 mg PO DAILY [facility] Last Admin: 05/03/18 07:57 Dose: 12.5 mg Nortriptyline HCl (Pamelor) 10 mg PO QHS [facility] Last Admin: 05/02/18 21:29 Dose: 10 mg Nortriptyline HCl (Pamelor) 25 mg PO QHS [facility] Last Admin: 05/02/18 21:29 Dose: 25 mg Nutritional Formula (Lactose Free) (Ensure Clear) 120 ml PO 4X/DAY [facility] Last Admin: 05/03/18 08:02 Dose: 120 ml Ondansetron HCl (Zofran) 4 mg IV Q8H PRN PRN PRN Reason: NAUSEA Pantoprazole Sodium (Protonix) 20 mg PO DAILY [facility] Last Admin: 05/03/18 07:57 Dose: 20 mg Promethazine HCl (Phenergan) 12.5 mg IV Q6H PRN PRN PRN Reason: NAUSEA/VOMITING Sodium Chloride () 5 - 30 ml IV UD PRN PRN Reason: SALINE FLUSH Last Admin: 05/02/18 09:45 Dose: 10 ml Medical Necessity - Tobacco Use Smoking Status: Never smoker Tobacco Use: Non-smoker Assessment/Plan All Active Problems (Last Reviewed 04/28/18 @ 10:28 by Lupis Chase) SIRS (systemic inflammatory response syndrome) (Acute) Viral syndrome (Acute) Sinusitis, acute (Acute) 1.URTI, likely viral resolving. Feels better, but had temperature peaking at 101F overnight sore throat has resolved. has leucopenia which is now 2.9; wbc was 5.2 on admission continue breathing treatment and tylenol for fever 2. NANCI: resolved. Cr trended down to 0.95, from 1.45 on admission will dc IVF today. 3. Lactic acidosis: resolved. 4. leucopenia: wbc is down to 2.9 from 5.2 on admission. Likely due to viral illness. Will monitor. 5. Hyponatremia: Resolved 6. Anxiety and depression: On Lexapro 7. Prediabetes mellitus: A1c is 5.8. ADA diet. 8. Hypertension: On metoprolol. IV hydralazine as needed 9. Hyperlipidemia: On statin 10. GERD with hiatal hernia: PPI 11. Hypothyroidism: On liothyronine 5 mg twice daily DVT prophylaxis:. Renally dosed Lovenox Disposition: feels better, though still a bit weak; for dc home tomorrow Code Visit Inpatient E&M: [id number] Subs Hosp L2
--- NOTE | 2018-05-03 09:51 | PN_ITS ---
Patient Problems: Active and Suspected Problems (Last Reviewed 04/28/18 @ 10:28 by Lupis Chase) SIRS (systemic inflammatory response syndrome) (Acute) Viral syndrome (Acute) Subjective: Patient seen and examined. She feels much better today though she does complain of some weakness. She denies any fever or chills, any cough or chest pain, any shortness of breath or vomiting. She does admit to about 2 episodes of diarrhea overnight. Labs and vitals reviewed. She has remained febrile, with temp peaking at 101F overnight. Vitals/I&O's: Vital Signs Temp Pulse Resp BP Pulse Ox 97.8 F 63 18 122/62 H 97 05/03/18 07:53 05/03/18 07:57 05/03/18 07:53 05/03/18 07:53 05/03/18 07:53 Oxygen Delivery Method Room Air Weight: 203 lb 7.787 oz Body Mass Index (BMI) 36.0 Intake and Output for Last 24 Hours 05/01/18 05/02/18 05/03/18 23:59 23:59 23:59 Intake Total 5523 / 5523 2413 / 2413 Output Total 3300 / 3300 1800 / 1800 Balance 2223 / 2223 613 / 613 General: Alert, Oriented x3, Cooperative, No apparent distress HEENT: Atraumatic, PERRLA, EOMI, Normocephalic Oral: Moist Mucosa Neck: Supple, No JVD, Negative Carotid Bruits Lungs: Clear to auscultation, Normal air movement, No rhonchi, No wheeze, No rales Cardiovascular: Regular rate, Regular Rhythm, Normal S1, Normal S2, No murmurs Abdomen: Bowel Sounds Present, Soft, Non Tender, Non-Distended, No Hepato- splenomegaly Extremities: No clubbing, No cyanosis, No edema, Capillary Refill Less than 3 Seconds Skin: No rashes, No breakdown Musculoskeletal: No Tenderness to Palpation of Joints or Extremities Lymphatic: No Cervical, Supraclavicular, or Inguinal Adenopathy Neurological: Cranial nerves II-XII grossly intact, Neuro grossly intact, Motor Exam 5/5 strength throughout Psych/Mental Status: Normal Affect, Appropriate, Alert and oriented to time, place, person, mood and affect Microbiology Past 72 Hours 05/02/18 05:20 Stool Enteric Bacteriology - Final 05/02/18 00:01 Mucosa - Nose Respiratory Panel (PCR) - Final 05/02/18 05:20 Stool C. difficile DNA Amplification - Final 05/01/18 20:15 Mucosa - Nose Influenza Types A,B Direct FA (MARTHA) - Final Laboratory Results 05/02/18 12:22: POC Glucose 102 05/02/18 16:12: POC Glucose 70 05/02/18 23:03: POC Glucose 115 H 05/03/18 05:02: WBC 2.9 L, RBC 4.10 L, Hgb 11.1 L, Hct 34.6 L, MCV 84.4, MCH 27.1, MCHC 32.1, RDW 14.2, RDW Differential 42.9, Plt Count 172, MPV 9.8, Immature Gran % (Auto) 0.300, Neut % (Auto) 51.6, Lymph % (Auto) 24.4, [place] % (Auto) 16.4 H, Eos % (Auto) 7.0 H, Baso % (Auto) 0.3, Absolute Neuts (auto) 1.5 L, Absolute Lymphs (auto) 0.70 L, Total Counted Not Reportable 05/03/18 05:02: Sodium 141, Potassium 3.6, Chloride 109 H, Carbon Dioxide 24.0, Anion Gap 8, BUN 8, Creatinine 0.95, Estim Creat Clear Calc 50.14, Est GFR (MDRD) Af Amer 77, Est GFR (MDRD) Non-Af 63, BUN/Creatinine Ratio 8.4 L, Glucose 88, Calcium 8.4 L 05/03/18 06:25: POC Glucose 82 Current Medications Acetaminophen (Tylenol) 650 mg PO Q6H PRN PRN PRN Reason: Non-cardiac pain (mod-severe) Last Admin: 05/03/18 03:15 Dose: 650 mg Al Hydroxide/Mg Hydroxide (Mylanta Ii) 30 ml PO Q6H PRN PRN PRN Reason: Gastric burning Last Admin: 05/02/18 15:10 Dose: 30 ml Atorvastatin Calcium (Lipitor) 10 mg PO QHS [facility] Last Admin: 05/02/18 21:29 Dose: 10 mg Enoxaparin Sodium (Lovenox) 30 mg SC DAILY@1000 [facility] Last Admin: 05/03/18 08:02 Dose: 30 mg Escitalopram Oxalate (Lexapro) 20 mg PO DAILY [facility] Last Admin: 05/03/18 07:57 Dose: 20 mg Famotidine (Pepcid) 20 mg PO BID [facility] Last Admin: 05/03/18 07:57 Dose: 20 mg Hydralazine HCl (Apresoline Iv) 10 mg IV Q4H PRN PRN PRN Reason: SBP > 160 Sodium Chloride () 1,000 mls @ 150 mls/hr IV .Q6H40M [facility] Last Admin: 05/03/18 04:31 Dose: 150 mls/hr Insulin Human Lispro (Humalog Kwikpen (Bkc)) 0 unit SC [facility]; Protocol Last Admin: 05/03/18 06:26 Dose: Not Given Liothyronine Sodium (Cytomel) 5 mcg PO BID [facility] Magnesium Hydroxide (Milk Of Magnesia) 30 ml PO DAILY PRN PRN PRN Reason: Constipation Metoprolol Succinate (Toprol Xl (Beta Molly)) 12.5 mg PO DAILY [facility] Last Admin: 05/03/18 07:57 Dose: 12.5 mg Nortriptyline HCl (Pamelor) 10 mg PO QHS [facility] Last Admin: 05/02/18 21:29 Dose: 10 mg Nortriptyline HCl (Pamelor) 25 mg PO QHS [facility] Last Admin: 05/02/18 21:29 Dose: 25 mg Nutritional Formula (Lactose Free) (Ensure Clear) 120 ml PO 4X/DAY [facility] Last Admin: 05/03/18 08:02 Dose: 120 ml Ondansetron HCl (Zofran) 4 mg IV Q8H PRN PRN PRN Reason: NAUSEA Pantoprazole Sodium (Protonix) 20 mg PO DAILY [facility] Last Admin: 05/03/18 07:57 Dose: 20 mg Promethazine HCl (Phenergan) 12.5 mg IV Q6H PRN PRN PRN Reason: NAUSEA/VOMITING Sodium Chloride () 5 - 30 ml IV UD PRN PRN Reason: SALINE FLUSH Last Admin: 05/02/18 09:45 Dose: 10 ml Medical Necessity - Tobacco Use Smoking Status: Never smoker Tobacco Use: Non-smoker Assessment/Plan All Active Problems (Last Reviewed 04/28/18 @ 10:28 by Lupis Chase) SIRS (systemic inflammatory response syndrome) (Acute) Viral syndrome (Acute) Sinusitis, acute (Acute) 1.URTI, likely viral * resolving. Feels better, but had temperature peaking at 101F overnight * sore throat has resolved. * has leucopenia which is now 2.9; wbc was 5.2 on admission * continue breathing treatment and tylenol for fever * * 2. NANCI: * resolved. Cr trended down to 0.95, from 1.45 on admission * will dc IVF today. * 3. Lactic acidosis: resolved. 4. leucopenia: wbc is down to 2.9 from 5.2 on admission. Likely due to viral illness. Will monitor. 5. Hyponatremia: Resolved 6. Anxiety and depression: On Lexapro 7. Prediabetes mellitus: A1c is 5.8. ADA diet. 8. Hypertension: On metoprolol. IV hydralazine as needed 9. Hyperlipidemia: On statin 10. GERD with hiatal hernia: PPI 11. Hypothyroidism: On liothyronine 5 mg twice daily DVT prophylaxis:. Renally dosed Lovenox Disposition: feels better, though still a bit weak; for dc home tomorrow Code Visit Inpatient E&M: [id number] Subs Hosp L2
[2018-05-03 11:30] LABS: Bedside Glucose 96 mg/dL (70-110)
[2018-05-03 16:10] LABS: Bedside Glucose 117 mg/dL (70-110)
[2018-05-03] MEDS: Atorvastatin Calcium 10 MG Tablet PO (22:59)
[2018-05-03] MEDS: Nortriptyline 25 MG Capsule PO (22:59)
[2018-05-03] MEDS: Nortriptyline 10 MG Capsule PO (22:59)
[2018-05-03 23:16] LABS: Bedside Glucose 108 mg/dL (70-110)
[2018-05-04 01:56] VITALS: BP 134/76; PULSE 69; RESP 18; TEMP 37.3; O2SAT 97
[2018-05-04] MEDS: BENZOCAINE/MENTHOL 1 LOZENGE 2 LOZENGE MUCOUS MEM (02:04)
[2018-05-04 06:01] LABS: Absolute Lymphocyte Count 1.13 X10^3/ul (0.83-4.51); Absolute Neutrophil Count 3.1 X10^3/uL (2.0-7.7); Basophil# 0.02 X10^3/uL; Basophil% 0.4 % (0-1); Eosinophil# 0.21 X10^3/uL; Eosinophils% 4.2 % (0-5); Hematocrit 37.1 % (37-47); Lymphocyte # 1.13 X10^3/ul (4.0); Lymphocyte % 22.6 % (19-41); Mean Corp Hgb Conc 32.3 g/gl (32-36); Mean Corpuscular Hgb 27.3 pg (27.0-32.0); Mean Corpuscular Volume 84.3 fL (81-99); Mean Platelet Vol. 9.6 fl (6.2-12.0); Monocyte# 0.56 X10^3/uL; Monocyte% 11.2 % (0-10); Neutrophil # 3.06 X10^3/uL (2.7-7.7); Neutrophil % 61.4 % (47-70); Platelet Count 198 K/mm3 (150-450); RBC Distribution Width CV 14.1 % (11.6-14.6); RBC Distribution Width SD 42.9 fl (35.1-43.9)
[2018-05-04 06:34] LABS: Anion Gap 8 (5-15); BUN 11 mg/dL (7-18); BUN/Creat Ratio 11.3 RATIO (10-20); Calcium,Total 9.1 mg/dL (8.5-10.1); Chloride 104 mmol/L (98-107); Creatinine, Serum 0.97 mg/dL (0.55-1.02); EST Glomerular Filtration Rate 62 mL/min (>60); Est Glom Filt Rate - Afr Amer 74 mL/min (>60); Estimated Creatinine Clearance 49.11 ml/min; Glucose 95 mg/dL (74-106); Potassium 3.7 mmol/L (3.5-5.1); Sodium Level 139 mmol/L (136-145)
[2018-05-04 06:38] LABS: POSITIVE COUNT NO; POSITIVE DIFFERENTIAL NO; POSITIVE MORPHOLOGY NO
[2018-05-04 07:25] LABS: Bedside Glucose 86 mg/dL (70-110)
[2018-05-04 07:56] VITALS: BP 133/69; PULSE 73; RESP 16; TEMP 36.9; O2SAT 94
[2018-05-04 08:00] VITALS: O2SAT 95
[2018-05-04] MEDS: Escitalopram Oxalate 20 MG Tablet PO (09:00)
[2018-05-04 09:01] VITALS: PULSE 73
[2018-05-04] MEDS: Famotidine 20 MG Tablet PO (09:01)
[2018-05-04] MEDS: Metoprolol(XL)Succ 25 MG Tablet 12.5 MG PO (09:01)
[2018-05-04] MEDS: Pantoprazole Sodium 20 MG Tablet PO (09:01)
[2018-05-04] MEDS: Enoxaparin 30 MG/0.3 ML Syringe SC (09:09)
--- NOTE | 2018-05-04 09:14 | DCINST_ITS ---
- Discharge Diagnoses Current Active Problems: Current Active and Chronic Problems (Last Reviewed 04/28/18 @ 10:28 by Lupis Chase) SIRS (systemic inflammatory response syndrome) (Acute) Viral syndrome (Acute) HLD (hyperlipidemia) (Chronic) Prediabetes (Chronic) GERD (gastroesophageal reflux disease) (Chronic) Hiatal hernia (Chronic) You will use the following diet at home:: Regular Your food should be the consistency of: Regular Your liquids should be the consistency of: Regular/Thin Discharge Activity: No Restrictions Call your doctor if you observe: Fever of 101 or Higher, Shortness of breath, Dizziness Allergies/Adverse Reactions: Allergies adhesive tape Allergy (Verified 05/01/18 19:54) Rash Penicillins Allergy (Verified 05/01/18 19:54) Hives Medications to take at Discharge Atorvastatin Calcium [Lipitor] 10 mg PO QHS 12/28/13 Escitalopram Oxalate [Lexapro] 20 mg PO DAILY 12/28/13 Famotidine [Pepcid] 20 mg PO BID 12/28/13 Metoprolol(XL)Succ [Toprol Xl (Beta Molly)] 12.5 mg PO DAILY 12/28/13 Nortriptyline HCl 35 mg PO QHS 12/28/13 pantoprazole 20 mg tablet,delayed release 40 mg PO DAILY tab 09/09/17 Liothyronine Sodium [Cytomel] 5 mcg PO BID 03/10/18 Primary Care Physician: Sosa Chandler DO [Primary Care Provider] - Please follow up with your Primary Care Physician in: in 3-5 days Test Results: Test results from this visit will be discussed in further detail at your follow- up appointment, if applicable.
--- NOTE | 2018-05-04 09:14 | PCM.DC.SUM ---
Discharge Date and Diagnosis - Problem List Patient Problems: Active and Suspected Problems (Last Reviewed 04/28/18 @ 10:28 by Lupis Chase) SIRS (systemic inflammatory response syndrome) (Acute) Viral syndrome (Acute) Date of Admission: 05/01/18 Date of Discharge: 05/04/18 - Primary Discharge Diagnosis Active and Suspected Problems (Last Reviewed 04/28/18 @ 10:28 by Lupis Chase) SIRS (systemic inflammatory response syndrome) (Acute) Viral syndrome (Acute) - Secondary Discharge Diagnosis Chronic Problems (Last Reviewed 04/28/18 @ 10:28 by Lupis Chase) HLD (hyperlipidemia) (Chronic) Prediabetes (Chronic) GERD (gastroesophageal reflux disease) (Chronic) Hiatal hernia (Chronic) Hearing loss (Chronic) Obesity (Chronic) Hx of familial combined hyperlipidemia (Chronic) History of depression (Chronic) Benign hypertension (Chronic) Hospital Course and Treatment Imaging Results: CT Brain: IMPRESSION: No evidence of acute intracranial bleed, mass or ischemia. CT Sinus: IMPRESSION: No evidence of acute sinus abnormality or soft tissue inflammation. CXR: IMPRESSION: Normal x-ray examination of the chest. ] Consults: None Operations: None Procedures: None Summary of Care Provided: Per HPI: The patient is a 62 y/o F w/ PMHx: Depression and Anxiety, HTN, HLD, Obesity, Prediabetes, GERD w/ Hiatal Hernia who presents to the [facility] ED on 05/01/18 with history of general malaise, fatigue, URI symptoms including rhinorrhea, postnasal drip as well as initially facial pressure with evaluation at urgent care the Friday prior with diagnosis at that time sinusitis treated with oral Bactrim with now onset myalgias, arthralgias, fevers and chills as well as home BP 90 over 60s. Patient did note she has had poor appetite recently and decreased oral hydration. She states that her facial pressure has resolved. In the ED workup included T102.3, heart rate 90, BP 129/77, respiratory rate 22, 98% on room air, CBC with W BC 5.2, hemoglobin 12.7, platelet 238 without market left shift, CMP with sodium 132, BUN/creatinine 17/1.42, lactic acid 2.8, urinalysis not marked appearing, CT brain with no acute findings, CT face and sinus with no evidence of acute sinus abnormality or soft tissue inflammation, chest x-ray with no acute findings, rapid influenza negative, blood culture x2 pending per ED, respiratory viral panel pending. The ED patient administered normal saline, GI cocktail, Tylenol. Vital Signs - 24 hr Temp Pulse Resp BP Pulse Ox 05/04/18 09:01 73 05/04/18 08:00 95 05/04/18 07:56 98.4 F 73 16 133/69 H 94 05/04/18 01:56 99.2 F H 69 18 134/76 H 97 05/03/18 23:11 98.8 F 05/03/18 19:43 98.6 F 74 18 148/76 H 97 05/03/18 14:15 98.0 F 70 18 130/63 H 100 General: Alert, Oriented x3, Cooperative, No apparent distress HEENT: Atraumatic, PERRLA, EOMI, Normocephalic Oral: Moist Mucosa Neck: Supple, No JVD Lungs: Clear to auscultation, Normal air movement, No rhonchi, No wheeze, No rales Cardiovascular: Regular rate, Regular Rhythm, Normal S1, Normal S2, No murmurs Abdomen: Soft, Non Tender, Non-Distended, No Hepato-splenomegaly Extremities: No edema, Capillary Refill Less than 3 Seconds Skin: No rashes, No breakdown Hospital Course: 1. SIRS 2/2 viral URI/NANCI/Lactic acidosis/Leukopenia - She presented with sepsis and initial work-up was negative for a bacterial cause. She improved with IVF rehydration and her NANCI and hyponatremia resolved on day of discharge. Her sepsis also resolved the day after admission with IVF. Her blood cx were negative, and her viral studies were also negative. She did have a few episodes of diarrhea so a C. diff was sent which was also negative. She is feeling much better today and would like to go home. We discussed that she needs to remain hydrated and take it easy, while she has no restrictions in her activity she is to take it easy 2. Her other diagnoses were evaluated and her home medications were continued where appropriate Patient Problems: Active and Suspected Problems (Last Reviewed 04/28/18 @ 10:28 by Lupis Chase) SIRS (systemic inflammatory response syndrome) (Acute) Viral syndrome (Acute) - Physical Exam Vital Signs Temp Pulse Resp BP Pulse Ox 98.4 F 73 16 133/69 H 95 05/04/18 07:56 05/04/18 09:01 05/04/18 07:56 05/04/18 07:56 05/04/18 08:00 Oxygen Delivery Method Room Air Weight: 203 lb 7.787 oz Body Mass Index (BMI) 36.0 Intake and Output for Last 24 Hours 05/02/18 05/03/18 05/04/18 23:59 23:59 23:59 Intake Total 5523 / 5523 3830 / 3830 1000 / 1000 Output Total 3300 / 3300 1800 / 1800 3050 / 3050 Balance 2223 / 2223 2030 / 2029 -2049 / -2049 Microbiology Past 72 Hours 05/01/18 20:36 Blood Culture - Preliminary Blood Culture (Wb) - Anticubital Right No growth in 48 hours. 05/01/18 20:25 Blood Culture - Preliminary Blood Culture (Wb) - Anticubital Left No growth in 48 hours. 05/02/18 05:20 Enteric Bacteriology - Final Stool 05/02/18 00:01 Respiratory Panel (PCR) - Final Mucosa - Nose 05/02/18 05:20 C. difficile DNA Amplification - Final Stool 05/01/18 20:15 Influenza Types A,B Direct FA (MARTHA) - Final Mucosa - Nose Laboratory Tests Past 24 Hrs 05/04/18 05/04/18 05:30 05:30 WBC 5.0 RBC 4.40 Hgb 12.0 Hct 37.1 MCV 84.3 MCH 27.3 MCHC 32.3 RDW 14.1 RDW Differential 42.9 Plt Count 198 MPV 9.6 Immature Gran % (Auto) 0.200 Neut % (Auto) 61.4 Lymph % (Auto) 22.6 Jones % (Auto) 11.2 H Eos % (Auto) 4.2 Baso % (Auto) 0.4 Absolute Neuts (auto) 3.1 Absolute Lymphs (auto) 1.13 Total Counted Not Reportable Sodium 139 Potassium 3.7 Chloride 104 Carbon Dioxide 27.0 Anion Gap 8 BUN 11 Creatinine 0.97 Estim Creat Clear Calc 49.11 Est GFR (MDRD) Af Amer 74 Est GFR (MDRD) Non-Af 62 BUN/Creatinine Ratio 11.3 Glucose 95 Calcium 9.1 POC Glucose 05/04/18 05/03/18 05/03/18 06:33 23:05 16:07 POC Glucose 86 108 117 H 05/03/18 11:12 POC Glucose 96 Discharge Activity: No Restrictions Call your doctor if you observe: Fever of 101 or Higher, Shortness of breath, Dizziness Home Medications: Medications to take at Discharge Atorvastatin Calcium [Lipitor] 10 mg PO QHS 12/28/13 Escitalopram Oxalate [Lexapro] 20 mg PO DAILY 12/28/13 Famotidine [Pepcid] 20 mg PO BID 12/28/13 Metoprolol(XL)Succ [Toprol Xl (Beta Molly)] 12.5 mg PO DAILY 12/28/13 Nortriptyline HCl 35 mg PO QHS 12/28/13 pantoprazole 20 mg tablet,delayed release 40 mg PO DAILY tab 09/09/17 Liothyronine Sodium [Cytomel] 5 mcg PO BID 03/10/18 Primary Care Physician: Sosa Chandler DO [Primary Care Provider] - Please follow up with your Primary Care Physician in: in 3-5 days Disposition: Home Minutes spent on discharge:: 35 Patient Condition:: Good Medical Necessity - Tobacco Use Smoking Status: Never smoker Tobacco Use: Non-smoker Meaningful Use Info Meaningful Use Diagnoses (Choose all that apply): None applicable Code Visit OBSV E&M: 51660 Observation care discharge
== END 2018-05-04 11:10 | disposition home or self-care (01) ==
LOC: ED 20:31 → MS3 23:54
PROVIDERS: Student in an Organized Health Care Education/Training Program; Admitting Provider Family Medicine; Emergency Provider Emergency Medicine; Family Provider Family Medicine; PCP Family Medicine; Visit Provider Family Medicine
DX: J01.90 Acute sinusitis, unspecified (principal); R65.10 Systemic inflammatory response syndrome (SIRS) of non-infectious origin without acute organ dysfunction; B34.9 Viral infection, unspecified; K21.9 Gastro-esophageal reflux disease without esophagitis; E78.49 Other hyperlipidemia; I10 Essential (primary) hypertension; E66.9 Obesity, unspecified; F32.9 Major depressive disorder, single episode, unspecified; R73.03 Prediabetes; K44.9 Diaphragmatic hernia without obstruction or gangrene; F41.9 Anxiety disorder, unspecified; Z68.36 Body mass index [BMI] 36.0-36.9, adult; Z71.3 Dietary counseling and surveillance; Z79.899 Other long term (current) drug therapy; N17.9 Acute kidney failure, unspecified; E87.2 Acidosis; E87.1 Hypo-osmolality and hyponatremia; E03.9 Hypothyroidism, unspecified; D72.819 Decreased white blood cell count, unspecified
CPT/HCPCS: 36415; 70450; 70486; 71046; 80048; 80076; 81001; 82962; 83036; 83605; 83735; 85025; 87040; 87493; 87506; 87633; 87804; 96360; 96361; 96372; 97161; 97165; 97802; 99218; 99285; J7030; A4216; G0378

== ENCOUNTER → 2018-05-08 07:53 | Outpatient (CLI) | payer BC, SELFPAY ==
[2018-05-02 01:12] VITALS: BMI 36.0
[2018-05-08 12:32] LABS: T3 Total - Triiodothyronine 1.51 ng/mL (0.6-1.81); Vitamin B12 725 pg/mL (211-911); Vitamin D,25 Hydroxy 99.9 ng/mL (29.95-100.01)
[2018-05-08 12:48] LABS: T4 Free Direct 0.95 ng/dL (0.76-1.46); Thyroid Stim Hormone (TSH) 2.94 uIU/mL (0.358-3.74)
[2018-05-13 12:06] LABS: Nortriptyline Level 68 ng/mL (50-150)
--- OUTSIDE RECORDS SUMMARY | 2018-07-03 01:34 | XMS RPT_ITS ---
:1955 Author Organization OHIP Support Name Relationship Address Phone DONNY LEX Unavailable [address] + [place] [address] R Unavailable Unavailable Unavailable LEISURE, LEX Unavailable [address] + [place] [address] R Unavailable Unavailable Unavailable LEISURE, LEX Unavailable [address] + [place] [address] R Unavailable Unavailable Unavailable LEISURE, LEX Unavailable [address] + [place] [address] R Unavailable Unavailable Unavailable LEISURE, LEX Unavailable [address] + [place] [address] R Unavailable Unavailable Unavailable LEISURE, LEX Unavailable [address] + [place] [address] R Unavailable Unavailable Unavailable LEISURE, LEX Unavailable [address] + [place] [address] R Unavailable Unavailable Unavailable LEISURE, LEX Unavailable [address] + [place] [address] R Unavailable Unavailable Unavailable LEISURE, LEX Unavailable [address] + [place] [address] R Unavailable Unavailable Unavailable LEISURE, LEX Unavailable [address] + [place] [address] R Unavailable Unavailable Unavailable LEISURE, LEX Unavailable [address] + [place] [address] R Unavailable Unavailable Unavailable LEISURE, LEX Unavailable [address] + [place] [address] R Unavailable Unavailable Unavailable LEISURE, LEX Unavailable [address] + [place] [address] R Unavailable Unavailable Unavailable LEISURE, LEX Unavailable [address] + [place] [address] R Unavailable Unavailable Unavailable LEISURE, LEX Unavailable [address] + [place] [address] R Unavailable Unavailable Unavailable LEISURE, LEX Unavailable [address] + [place] [address] R Unavailable Unavailable Unavailable LEISURE, LEX Unavailable [address] + [place] [address] R Unavailable Unavailable Unavailable LEISURE, LEX Unavailable [address] + [place] [address] R Unavailable Unavailable Unavailable LEISURE, LEX Unavailable [address] + [place] [address] R Unavailable Unavailable Unavailable LEISURE, LEX Unavailable [address] + [place] [address] R Unavailable Unavailable Unavailable LEISURE, LEX Unavailable [address] + [place] [address] R Unavailable Unavailable Unavailable LEISURE, LEX Unavailable [address] + [place] [address] R Unavailable Unavailable Unavailable LEISURE, LEX Unavailable [address] + [place] [address] R Unavailable Unavailable Unavailable LEISURE, LEX Unavailable [address] + [place] [address] R Unavailable Unavailable Unavailable LEISURE, LEX Unavailable [address] + [place] [address] R Unavailable Unavailable Unavailable Care Team Providers Name Role Phone SCOTTY CHAMORRO Attending Unavailable Malys, Sosa Attending Unavailable Malys, Sosa Primary Care Unavailable Melvin, Mayur S. Attending Unavailable Melvin, Mayur S. Referring Unavailable Malys, Sosa Primary Care Unavailable Melvin, Mayur S. Attending Unavailable Malys, Sosa Referring Unavailable Malys, Sosa Primary Care Unavailable MAEVE BHAGAT Consulting Unavailable Justin Navarro Attending Unavailable Justin Navarro Referring Unavailable Malys, Sosa Primary Care Unavailable Malys, Sosa Attending Unavailable Malys, Sosa Referring Unavailable Malys, Sosa Primary Care Unavailable Malgorzata Goodwin Attending Unavailable Malys, Sosa Referring Unavailable Malys, Sosa Primary Care Unavailable Malgorzata Goodwin Attending Unavailable Malgorzata Goodwin Referring Unavailable Malys, Sosa Primary Care Unavailable Cebul, Kemar Attending Unavailable Malys, Sosa Referring Unavailable Malys, Sosa Primary Care Unavailable Christa, Malgorzata Attending Unavailable Malys, Sosa Referring Unavailable Malys, Sosa Primary Care Unavailable Chicorelli, Malgorzata Attending Unavailable Chicorelli, Malgorzata Referring Unavailable Malys, Sosa Primary Care Unavailable Chicorelli, Malgorzata Attending Unavailable Chicorelli, Malgorzata Referring Unavailable Malys, Sosa Primary Care Unavailable Chicorelkostas, Malgorzata Attending Unavailable Malys, Sosa Referring Unavailable Malys, Sosa Primary Care Unavailable Marcus Durbin Attending Unavailable Malys, Sosa Referring Unavailable Malys, Sosa Attending Unavailable Malys, Sosa Referring Unavailable Malys, Sosa Primary Care Unavailable Chicorelli, Malgorzata Consulting Unavailable Chicorelli, Malgorzata Attending Unavailable Malys, Sosa Referring Unavailable Malys, Sosa Primary Care Unavailable Malys, Sosa Attending Unavailable Malys, Sosa Referring Unavailable Malys, Sosa Primary Care Unavailable Malys, Sosa Primary Care Unavailable Hawk Sousa Attending Unavailable Malys, Sosa Attending Unavailable Malys, Sosa Referring Unavailable Malys, Sosa Primary Care Unavailable Rian Ruelas Attending Unavailable Malys, Sosa Referring Unavailable Malys, Sosa Primary Care Unavailable White, Alice Admitting Unavailable Kotsonis, Ulises F Attending Unavailable White, Alice Admitting Unavailable White, Alice Attending Unavailable Malys, Sosa Primary Care Unavailable White, Alice Consulting Unavailable White, Aliec Admitting Unavailable Koram, Dali Ashley Attending Unavailable Malys, Sosa Primary Care Unavailable Koram, Dali Ashley Consulting Unavailable White, Alice Admitting Unavailable Koram, Dali Ashley Attending Unavailable Malys, Sosa Primary Care Unavailable Koram, Dali Ashley Consulting Unavailable White, Alice Admitting Unavailable Kotsonis, Ulises F Attending Unavailable Malys, Sosa Primary Care Unavailable Kotsonis, Ulises F Consulting Unavailable Malys, Sosa Attending Unavailable Malys, Sosa Primary Care Unavailable PROBLEMS PROBLEMS DATE TYPE CONDITION / CODE ATTENDING STATUS SOURCE 05/08/2018 Unknown Z51.81 - Encounter Malys, Sosa Active [place] for therapeutic drug Community level monitoring / Hospital Z51.81(ICD-10) Repository 05/08/2018 Unknown E55.9 - Vitamin D Malys, Sosa Active [place] deficiency, Community unspecified / Hospital E55.9(ICD-10) Repository 05/08/2018 Unknown R53.83 - Other Malys, Sosa Active [place] fatigue / Community R53.83(ICD-10) Hospital Repository 05/08/2018 Unknown E53.8 - Deficiency Malys, Sosa Active [place] of other specified B Community group vitamins / Hospital E53.8(ICD-10) Repository 05/08/2018 Unknown 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, 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 / Hospital E27.40(ICD-10) Repository 05/08/2018 Unknown E03.9 - Malys, Sosa Active [place] Hypothyroidism, Community unspecified / Hospital E03.9(ICD-10) Repository 04/28/2018 Unknown J01.00 - Acute Suraj, Rian Active [place] maxillary sinusitis, Community unspecified / Hospital J01.00(ICD-10) Repository 04/15/2018 Unknown N28.9 - Disorder of Malys, Sosa Active [place] kidney and ureter, Community unspecified / Hospital N28.9(ICD-10) Repository 03/10/2018 Unknown S20.219A - Contusion Le, Hawk Active [place] of unspecified front Community wall of thorax, Hospital initial encounter / Repository S20.219A(ICD-10) 02/11/2018 Unknown M85.80 - Other Malys, Sosa Active [place] specified disorders Community of bone density and Hospital structure, Repository unspecified site / M85.80(ICD-10) 02/11/2018 Unknown E78.5 - Malys, Sosa Active [place] Hyperlipidemia, Community unspecified / Hospital E78.5(ICD-10) Repository 12/24/2017 Unknown M79.642 - Pain in Malys, Sosa Active [place] left hand / Community M79.642(ICD-10) Hospital Repository 03/03/2018 Unknown M54.5 - Low back Chicorelli, Active [place] pain / M54.5(ICD-10) [facility] Hospital Repository 11/06/2017 Unknown M54.16 - Chicorelli, Active [place] Radiculopathy, [facility] lumbar region / Hospital M54.16(ICD-10) Repository 11/06/2017 Unknown M25.552 - Pain in Chicorelli, Active [place] left hip / [facility] M25.552(ICD-10) Hospital Repository 09/18/2017 Unknown M81.0 - Age-related Malys, Sosa Active [place] osteoporosis without Community current pathological Hospital fracture / Repository M81.0(ICD-10) 09/09/2017 Unknown M79.641 - Pain in Chicorelli, Active [place] right hand / [facility] M79.641(ICD-10) Hospital Repository 07/08/2017 Unknown R25.1 - Tremor, Melvin, Active [place] unspecified / [facility] R25.1(ICD-10) Hospital Repository 07/08/2017 Unknown R51 - Headache / Melvin, Active [place] R51(ICD-10) [facility] Hospital Repository 06/04/2017 Unknown K21.0 - Malys, Sosa Active [place] Gastro-esophageal Community reflux disease with Hospital esophagitis / Repository K21.0(ICD-10) PROCEDURES PROCEDURES No Procedure Records FoundRESULTS RESULTS T3 TOTAL - TRIIODOTHYRONINE Collected: 05/08/2018 Status: F Source: [place] 7:58 AM [facility] [place] TYPE CODE TESTS RESULT OUT OF RANGE REFERENCE UNITS LAB L501.9186 0.6-1.81 ng/mL Normal T3 Total 1.51 Performed By: #### L501.9186, L503.0105, L506.1000, L509.6000 #### [facility] [address] [place], [address] VITAMIN B12 Collected: 05/08/2018 Status: F Source: [place] 7:58 AM [facility] [place] [place] TYPE CODE TESTS RESULT OUT OF RANGE REFERENCE UNITS LAB L503.0105 211-911 pg/mL Normal Vitamin B12 725 Performed By: #### L501.9186, L503.0105, L506.1000, L509.6000 #### [facility] [address] [place], [address] VITAMIN D,25 HYDROXY Collected: 05/08/2018 Status: F Source: [place] 7:58 AM [facility] [place] TYPE CODE TESTS RESULT OUT OF RANGE REFERENCE UNITS LAB L506.1000 29.95-100.01 ng/mL Normal Vitamin D 99.9 25-OH Result Comment: Vitamin D 25(OH) Status Range Deficiency <20 ng/mL (50nmol/L) Insuffciency 20 - 30 ng/mL (50 - 75 nmol/L) Sufficiency 30 - 100 ng/mL (75 - 250 nmol/L) Toxicity >100 ng/mL (>250 nmol/L) Performed By: #### L501.9186, L503.0105, L506.1000, L509.6000 #### [facility] [address] [place], [address] CORTISOL SERUM Collected: 05/08/2018 Status: F Source: [place] 7:58 AM [facility] [place] TYPE CODE TESTS RESULT OUT OF RANGE REFERENCE UNITS LAB L509.6000 3.09-22.40 ug/dL Normal CORTISOL 18.10 Result Comment: Adult (AM) 4.30 - 22.40 ug/dL Adult (PM) 3.09 - 16.66 ug/dL Performed By: #### L501.9186, L503.0105, L506.1000, L509.6000 #### [facility] [address] [place], [place], [id number] THYROID STIM HORMONE Collected: 05/08/2018 Status: F Source: [place] ([facility]) 7:58 AM [facility] [place] TYPE CODE TESTS RESULT OUT OF RANGE REFERENCE UNITS LAB L501.9520 0.358-3.74 uIU/mL Normal TSH 2.94 Performed By: #### L501.9520, L506.0400 #### [facility] [address] [place], [address] T4 FREE DIRECT Collected: 05/08/2018 Status: F Source: [place] 7:58 AM [facility] [place] [place] TYPE CODE TESTS RESULT OUT OF RANGE REFERENCE UNITS LAB L506.0400 0.76-1.46 ng/dL Normal T4 FREE 0.95 DIRECT Performed By: #### L501.9520, L506.0400 #### [facility] [address] [place], [address] NORTRIPTYLINE LEVEL Collected: 05/08/2018 Status: F Source: [place] 7:58 AM [facility] [place] TYPE CODE TESTS RESULT OUT OF RANGE REFERENCE UNITS LAB L3300.5500 50-150 ng/mL Normal NORTRIPTYL 68 Result Comment: Detection Limit = 20 Performed at: - [facility] [id number] Contract Associate: Soco Wright MD, Phone: [phone] Performed By: #### L3300.5500 #### [facility] (refer to report for specific site) refer to report for address and phone number DISCHARGE SUMMARY Observed: 05/04/2018 Status: F Source: [place] 9:26 AM [facility] [place] Medical Records Department [address] [facility] [place] [address] Discharge Summary 05/04/18 0914 MR#: [id number] Acct: [id number] Name: EMMA WEAVER Rep #: [id number] : 1955 62 From: Ulises Smiley MD PCP: Sosa Chandler DO Status: ADM BREEZY Y Location: [place] [address] Discharge Date and Diagnosis - Problem List Patient Problems: Active and Suspected Problems (Last Reviewed 04/28/18 @ 10:28 by Lupis Chase) SIRS (systemic inflammatory response syndrome) (Acute) Viral syndrome (Acute) Date of Admission: 05/01/18 Date of Discharge: 05/04/18 - Primary Discharge Diagnosis Active and Suspected Problems (Last Reviewed 04/28/18 @ 10:28 by Lupis Chase) SIRS (systemic inflammatory response syndrome) (Acute) Viral syndrome (Acute) - Secondary Discharge Diagnosis Chronic Problems (Last Reviewed 04/28/18 @ 10:28 by Lupis Chase) HLD (hyperlipidemia) (Chronic) Prediabetes (Chronic) GERD (gastroesophageal reflux disease) (Chronic) Hiatal hernia (Chronic) Hearing loss (Chronic) Obesity (Chronic) Hx of familial combined hyperlipidemia (Chronic) History of depression (Chronic) Benign hypertension (Chronic) Hospital Course and Treatment Imaging Results: CT Brain: IMPRESSION: No evidence of acute intracranial bleed, mass or ischemia. CT Sinus: IMPRESSION: No evidence of acute sinus abnormality or soft tissue inflammation. CXR: IMPRESSION: Normal x-ray examination of the chest. ] Consults: None Operations: None Procedures: None Summary of Care Provided: Per HPI: The patient is a 62 y/o F w/ PMHx: Depression and Anxiety, HTN, HLD, Obesity, Prediabetes, GERD w/ Hiatal Hernia who presents to the [facility] ED on 05/01/18 with history of general malaise, fatigue, URI symptoms including rhinorrhea, postnasal drip as well as initially facial pressure with evaluation at urgent care the Friday prior with diagnosis at that time sinusitis treated with oral Bactrim with now onset myalgias, arthralgias, fevers and chills as well as home BP 90 over 60s. Patient did note she has had poor appetite recently and decreased oral hydration. She states that her facial pressure has resolved. In the ED workup included T102.3, heart rate 90, BP 129/77, respiratory rate 22, 98% on room air, CBC with W BC 5.2, hemoglobin 12.7, platelet 238 without market left shift, CMP with sodium 132, BUN/creatinine 17/1.42, lactic acid 2.8, urinalysis not marked appearing, CT brain with no acute findings, CT face and sinus with no evidence of acute sinus abnormality or soft tissue inflammation, chest x-ray with no acute findings, rapid influenza negative, blood culture x2 pending per ED, respiratory viral panel pending. The ED patient administered normal saline, GI cocktail, Tylenol. Vital Signs - 24 hr 05/04/18 09:01 73 05/04/18 08:00 95 05/04/18 07:56 98.4 F 73 16 133/69 H 94 General: Alert, Oriented x3, Cooperative, No apparent distress HEENT: Atraumatic, PERRLA, EOMI, Normocephalic Oral: Moist Mucosa Neck: Supple, No JVD Lungs: Clear to auscultation, Normal air movement, No rhonchi, No wheeze, No rales Cardiovascular: Regular rate, Regular Rhythm, Normal S1, Normal S2, No murmurs Abdomen: Soft, Non Tender, Non-Distended, No Hepato-splenomegaly Extremities: No edema, Capillary Refill Less than 3 Seconds Skin: No rashes, No breakdown Hospital Course: 1. SIRS 2/2 viral URI/NANCI/Lactic acidosis/Leukopenia - She presented with sepsis and initial work-up was negative for a bacterial cause. She improved with IVF rehydration and her NANCI and hyponatremia resolved on day of discharge. Her sepsis also resolved the day after admission with IVF. Her blood cx were negative, and her viral studies were also negative. She did have a few episodes of diarrhea so a C. diff was sent which was also negative. She is feeling much better today and would like to go home. We discussed that she needs to remain hydrated and take it easy, while she has no restrictions in her activity she is to take it easy 2. Her other diagnoses were evaluated and her home medications were continued where appropriate Patient Problems: Active and Suspected Problems (Last Reviewed 04/28/18 @ 10:28 by Lupis Chase) SIRS (systemic inflammatory response syndrome) (Acute) Viral syndrome (Acute) - Physical Exam Vital Signs Temp Pulse Resp BP Pulse Ox 98.4 F 73 16 133/69 H 95 05/04/18 07:56 05/04/18 09:01 05/04/18 07:56 05/04/18 07:56 05/04/18 08:00 Oxygen Delivery Method Room Air Weight: 203 lb 7.787 oz Body Mass Index (BMI) 36.0 Intake and Output for Last 24 Hours Intake Total 5523 / 5523 3830 / 3830 1000 / 1000 Output Total 3300 / 3300 1800 / 1800 3050 / 3050 Balance 2223 / 2223 2030 / 2029 -2049 / -2049 Microbiology Past 72 Hours 05/01/18 20:36 Blood Culture - Preliminary Blood Culture (Wb) - Anticubital Right No growth in 48 hours. Laboratory Tests Past 24 Hrs WBC 5.0 RBC 4.40 Hgb 12.0 Hct 37.1 MCV 84.3 MCH 27.3 POC Glucose POC Glucose 86 108 117 H POC Glucose 96 Discharge Activity: No Restrictions Call your doctor if you observe: Fever of 101 or Higher, Shortness of breath, Dizziness Home Medications: Medications to take at Discharge Atorvastatin Calcium [Lipitor] 10 mg PO QHS 12/28/13 Escitalopram Oxalate [Lexapro] 20 mg PO DAILY 12/28/13 Famotidine [Pepcid] 20 mg PO BID 12/28/13 Metoprolol(XL)Succ [Toprol Xl (Beta Molly)] 12.5 mg PO DAILY 12/28/13 Nortriptyline HCl 35 mg PO QHS 12/28/13 pantoprazole 20 mg tablet,delayed release 40 mg PO DAILY tab 04/03/18 Liothyronine Sodium [Cytomel] 5 mcg PO BID 03/10/18 Primary Care Physician: Sosa Chandler DO [Primary Care Provider] - Please follow up with your Primary Care Physician in: in 3- 5 days Disposition: Home Minutes spent on discharge:: 35 Patient Condition:: Good Medical Necessity - Tobacco Use Smoking Status: Never smoker Tobacco Use: Non-smoker Meaningful Use Info Meaningful Use Diagnoses (Choose all that apply): None applicable Code Visit OBSV E AND M: 67518 Observation care discharge 05/04/18925 <Electronically signed by Ulises Smiley MD> Date Ulises Smiley MD Cosigner Signature (if applicable): Date CC: Sosa Chandler DO; Ulises Smiley MD Signed DISCHARGE INSTRUCTION Observed: 05/04/2018 Status: F Source: [place] 9:14 AM [facility] Medical Records Department [address] [place] [address] Instructions for Home/Discharge Instructions 05/04/18911 MR#: [id number] Acct: [id number] Name: DONNYEMMA Leanne Rep #: [id number] : 1955 62 From: Ulises Smiley MD PCP: Sosa Chandler DO Status: ADM BREEZY - Discharge Diagnoses Current Active Problems: Current Active and Chronic Problems (Last Reviewed 04/28/18 @ 10:28 by Lupis Chase) SIRS (systemic inflammatory response syndrome) (Acute) Viral syndrome (Acute) HLD (hyperlipidemia) (Chronic) Prediabetes (Chronic) GERD (gastroesophageal reflux disease) (Chronic) Hiatal hernia (Chronic) You will use the following diet at home:: Regular Your food should be the consistency of: Regular Your liquids should be the consistency of: Regular/Thin Discharge Activity: No Restrictions Call your doctor if you observe: Fever of 101 or Higher, Shortness of breath, Dizziness Allergies/Adverse Reactions: Allergies adhesive tape Allergy (Verified 05/01/18 19:54) Rash Penicillins Allergy (Verified 05/01/18 19:54) Hives Medications to take at Discharge Atorvastatin Calcium [Lipitor] 10 mg PO QHS 12/28/13 Escitalopram Oxalate [Lexapro] 20 mg PO DAILY 12/28/13 Famotidine [Pepcid] 20 mg PO BID 12/28/13 Metoprolol(XL)Succ [Toprol Xl (Beta Molly)] 12.5 mg PO DAILY 12/28/13 Nortriptyline HCl 35 mg PO QHS 12/28/13 pantoprazole 20 mg tablet,delayed release 40 mg PO DAILY tab 09/09/17 Liothyronine Sodium [Cytomel] 5 mcg PO BID 03/10/18 Primary Care Physician: Sosa Chandler DO [Primary Care Provider] - Please follow up with your Primary Care Physician in: in 3- 5 days Test Results: Test results from this visit will be discussed in further detail at your follow-up appointment, if applicable. 05/04/18913 <Electronically signed by Ulises Smiley MD> Date Ulises Smiley MD CC: Sosa Chandler DO BEDSIDE GLUCOSE Collected: 05/04/2018 Status: F Source: [place] 6:33 AM [facility] [place] TYPE CODE TESTS RESULT OUT OF RANGE REFERENCE UNITS LAB L501.080 70-110 mg/dL Normal BEDSIDE GLU 86 Result Comment: MANAGEMENT OF PATIENT CARE PER NURSING PROTOCOL Performed By: #### L501.080 #### [facility] Point of Care [facility] [place] [address] BASIC METABOLIC Collected: 05/04/2018 Status: F Source: [place] PROFILE (BMP) 5:30 AM [facility] [place] TYPE CODE TESTS RESULT OUT OF RANGE REFERENCE UNITS LAB L501.0100 74-106 mg/dL Normal GLU 95 Result Comment: Please note revised GLUCOSE reference range effective 2017. LAB L501.1000 7-18 mg/dL Normal BUN 11 LAB L501.1100 0.55-1.02 mg/dL Normal CREAT,SERUM 0.97 Result Comment: The validity of the calculated GFR AND GFRAA in patients over 70 years has not been determined. Clinical correlation is essential. LAB L501.1110 >60 mL/min Normal EST GFR 62 Result Comment: Non- GFR Calc LAB L501.1115 >60 mL/min Normal EST GFR - AA 74 Result Comment: GFR Calc LAB L501.1255 ml/min Normal Estimated CRCL 49.11 LAB L501.1300 10-20 RATIO Normal BUN/CRE 11.3 LAB L501.2200 8.5-10 mg/dL Normal .1 CA 9.1 LAB L501.5300 136-14 mmol/L Normal 5 NA 139 LAB L501.5600 3.5-5. mmol/L Normal 1 K 3.7 LAB L501.5900 98-107 mmol/L Normal CL 104 LAB L501.6100 21.0-3 mmol/L Normal 2.0 CO2 27.0 LAB L501.6200 5-15 Normal GAP 8 Performed By: #### L500.2500 #### [facility] [address] [facility] [place], [address] CBC W/DIFF, AUTOMATED Collected: 05/04/2018 Status: F Source: [place] 5:30 AM [facility] [place] [place] TYPE CODE TESTS RESULT OUT OF RANGE REFERENCE UNITS LAB L100.1000 4.4-11.0 K/mm3 Normal WBC 5.0 LAB L100.1200 4.2-5.4 M/mm3 Normal RBC 4.40 LAB L100.1300 12.0-15.0 g/dl Normal HGB 12.0 LAB L100.1400 37-47 % Normal HCT 37.1 LAB L100.1500 81-99 fL Normal MCV 84.3 LAB L100.1600 27.0-32.0 pg Normal MCH 27.3 LAB L100.1700 32-36 g/gl Normal MCHC 32.3 LAB L100.1810 11.6-14.6 % Normal RDW CV 14.1 LAB L100.1820 35.1-43.9 fl Normal RDW SD 42.9 LAB L100.1900 150-450 K/mm3 Normal PLT 198 LAB L100.2000 6.2-12.0 fl Normal MPV 9.6 LAB L100.2100 47-70 % Normal NEUT% 61.4 LAB L100.2200 19-41 % Normal LY% 22.6 LAB L100.2300 0-10 % High MONO% 11.2 LAB L100.2400 0-5 % Normal EO% 4.2 LAB L100.2500 0-1 % Normal BASO% 0.4 LAB L100.2550 0.0-0.9 % Normal IM GRAN % 0.200 Result Comment: IG% - Immature Granulocytes (promyelocytes, myelocytes and metamyelocytes) > 1% indicates that a LEFT SHIFT is Present. LAB L100.2620 2.0-7.7 X10 3/uL Normal Absolute Neut 3.1 LAB L100.2720 0.83-4.51 X10 3/ul Normal Absolute Lymph 1.13 Performed By: #### L100.0100 #### [facility] [address] [facility] [id number] BEDSIDE GLUCOSE Collected: 05/03/2018 Status: F Source: [place] 11:05 PM [facility] TYPE CODE TESTS RESULT OUT OF RANGE REFERENCE UNITS LAB L501.080 70-110 mg/dL Normal BEDSIDE GLU 108 Result Comment: MANAGEMENT OF PATIENT CARE PER NURSING PROTOCOL Performed By: #### L501.080 #### [facility] Point of Care [address] [facility] [place], [place] [id number] BEDSIDE GLUCOSE Collected: 05/03/2018 Status: F Source: [place] 4:07 PM [facility] [place] TYPE CODE TESTS RESULT OUT OF REFERENCE UNITS RANGE LAB L501.080 70-110 mg/dL High BEDSIDE GLU 117 Result Comment: MANAGEMENT OF PATIENT CARE PER NURSING PROTOCOL Performed By: #### L501.080 #### [facility] Point of Care [address] [facility] [place], [place] [id number] BEDSIDE GLUCOSE Collected: 05/03/2018 Status: F Source: [place] 11:12 AM [facility] [place] TYPE CODE TESTS RESULT OUT OF RANGE REFERENCE UNITS LAB L501.080 70-110 mg/dL Normal BEDSIDE GLU 96 Result Comment: MANAGEMENT OF PATIENT CARE PER NURSING PROTOCOL Performed By: #### L501.080 #### [facility] Point of Care [address] [place] [address] BEDSIDE GLUCOSE Collected: 05/03/2018 Status: F Source: [place] 6:25 AM [facility] [place] TYPE CODE TESTS RESULT OUT OF RANGE REFERENCE UNITS LAB L501.080 70-110 mg/dL Normal BEDSIDE GLU 82 Result Comment: MANAGEMENT OF PATIENT CARE PER NURSING PROTOCOL Performed By: #### L501.080 #### [facility] Point of Care [address] [place] [address] CBC W/DIFF, AUTOMATED Collected: 05/03/2018 Status: F Source: [place] 5:02 AM [facility] [place] TYPE CODE TESTS RESULT OUT OF RANGE REFERENCE UNITS LAB L100.1000 4.4-11.0 K/mm3 Low WBC 2.9 LAB L100.1200 4.2-5.4 M/mm3 Low RBC 4.10 LAB L100.1300 12.0-15.0 g/dl Low HGB 11.1 LAB L100.1400 37-47 % Low HCT 34.6 LAB L100.1500 81-99 fL Normal MCV 84.4 LAB L100.1600 27.0-32.0 pg Normal MCH 27.1 LAB L100.1700 32-36 g/gl Normal MCHC 32.1 LAB L100.1810 11.6-14.6 % Normal RDW CV 14.2 LAB L100.1820 35.1-43.9 fl Normal RDW SD 42.9 LAB L100.1900 150-450 K/mm3 Normal PLT 172 LAB L100.2000 6.2-12.0 fl Normal MPV 9.8 LAB L100.2100 47-70 % Normal NEUT% 51.6 LAB L100.2200 19-41 % Normal LY% 24.4 LAB L100.2300 0-10 % High MONO% 16.4 LAB L100.2400 0-5 % High EO% 7.0 LAB L100.2500 0-1 % Normal BASO% 0.3 LAB L100.2550 0.0-0.9 % Normal IM GRAN % 0.300 Result Comment: IG% - Immature Granulocytes (promyelocytes, myelocytes and metamyelocytes) > 1% indicates that a LEFT SHIFT is Present. LAB L100.2620 2.0-7.7 X10 3/uL Low Absolute Neut 1.5 LAB L100.2720 0.83-4.51 X10 3/ul Low Absolute Lymph 0.70 Performed By: #### L100.0100 #### [facility] [address] [place], [place], [address] BASIC METABOLIC Collected: 05/03/2018 Status: F Source: [place] PROFILE (BMP) 5:02 AM [facility] [place] TYPE CODE TESTS RESULT OUT OF RANGE REFERENCE UNITS LAB L501.0100 74-106 mg/dL Normal GLU 88 Result Comment: Please note revised GLUCOSE reference range effective 2017. LAB L501.1000 7-18 mg/dL Normal BUN 8 LAB L501.1100 0.55-1.02 mg/dL Normal CREAT,SERUM 0.95 Result Comment: The validity of the calculated GFR AND GFRAA in patients over 70 years has not been determined. Clinical correlation is essential. LAB L501.1110 >60 mL/min Normal EST GFR 63 Result Comment: Non- GFR Calc LAB L501.1115 >60 mL/min Normal EST GFR - AA 77 Result Comment: GFR Calc LAB L501.1255 ml/min Normal Estimated CRCL 50.14 LAB L501.1300 10-20 RATIO Low BUN/CRE 8.4 LAB L501.2200 8.5-10 mg/dL Low .1 CA 8.4 LAB L501.5300 136-14 mmol/L Normal 5 NA 141 LAB L501.5600 3.5-5. mmol/L Normal 1 K 3.6 LAB L501.5900 98-107 mmol/L High CL 109 LAB L501.6100 21.0-3 mmol/L Normal 2.0 CO2 24.0 LAB L501.6200 5-15 Normal GAP 8 Performed By: #### L500.2500 #### [facility] [address] [place], [place], [address] BEDSIDE GLUCOSE Collected: 05/02/2018 Status: F Source: [place] 11:03 PM [facility] [place] TYPE CODE TESTS RESULT OUT OF REFERENCE UNITS RANGE LAB L501.080 70-110 mg/dL High BEDSIDE GLU 115 Result Comment: MANAGEMENT OF PATIENT CARE PER NURSING PROTOCOL Performed By: #### L501.080 #### [facility] Point of Care [address] [place] [address] BEDSIDE GLUCOSE Collected: 05/02/2018 Status: F Source: [place] 4:12 PM [facility] [place] TYPE CODE TESTS RESULT OUT OF RANGE REFERENCE UNITS LAB L501.080 70-110 mg/dL Normal BEDSIDE GLU 70 Result Comment: MANAGEMENT OF PATIENT CARE PER NURSING PROTOCOL Performed By: #### L501.080 #### [facility] Point of Care [address] [place], [place] [id number] BEDSIDE GLUCOSE Collected: 05/02/2018 Status: F Source: [place] 12:22 PM [facility] [place] TYPE CODE TESTS RESULT OUT OF RANGE REFERENCE UNITS LAB L501.080 70-110 mg/dL Normal BEDSIDE GLU 102 Result Comment: MANAGEMENT OF PATIENT CARE PER NURSING PROTOCOL Performed By: #### L501.080 #### [facility] Point of Care [address] [place], [place] [address] BEDSIDE GLUCOSE Collected: 05/02/2018 Status: F Source: [place] 6:54 AM [facility] [place] TYPE CODE TESTS RESULT OUT OF RANGE REFERENCE UNITS LAB L501.080 70-110 mg/dL Normal BEDSIDE GLU 95 Result Comment: MANAGEMENT OF PATIENT CARE PER NURSING PROTOCOL Performed By: #### L501.080 #### [facility] Point [facility] [address] [place] [address] CBC W/DIFF, AUTOMATED Collected: 05/02/2018 Status: F Source: [place] 6:26 AM [facility] [place] TYPE CODE TESTS RESULT OUT OF RANGE REFERENCE UNITS LAB L100.1000 4.4-11.0 K/mm3 Low WBC 3.4 LAB L100.1200 4.2-5.4 M/mm3 Low RBC 3.96 LAB L100.1300 12.0-15.0 g/dl Low HGB 10.8 LAB L100.1400 37-47 % Low HCT 33.4 LAB L100.1500 81-99 fL Normal MCV 84.3 LAB L100.1600 27.0-32.0 pg Normal MCH 27.3 LAB L100.1700 32-36 g/gl Normal MCHC 32.3 LAB L100.1810 11.6-14.6 % Normal RDW CV 14.1 LAB L100.1820 35.1-43.9 fl Normal RDW SD 42.6 LAB L100.1900 150-450 K/mm3 Normal PLT 174 LAB L100.2000 6.2-12.0 fl Normal MPV 9.9 LAB L100.2100 47-70 % Normal NEUT% 63.3 LAB L100.2200 19-41 % Low LY% 14.4 LAB L100.2300 0-10 % High MONO% 15.8 LAB L100.2400 0-5 % High EO% 6.2 LAB L100.2500 0-1 % Normal BASO% 0.3 LAB L100.2550 0.0-0.9 % Normal IM GRAN % 0.000 Result Comment: IG% - Immature Granulocytes (promyelocytes, myelocytes and metamyelocytes) > 1% indicates that a LEFT SHIFT is Present. LAB L100.2620 2.0-7.7 X10 3/uL Normal Absolute Neut 2.2 LAB L100.2720 0.83-4.51 X10 3/ul Low Absolute Lymph 0.49 Performed By: #### L100.0100 #### [facility] [address] [place] [address]. [place], [address] BASIC METABOLIC Collected: 05/02/2018 Status: F Source: [place] PROFILE (BMP) 6:26 AM [facility] TYPE CODE TESTS RESULT OUT OF RANGE REFERENCE UNITS LAB L501.0100 74-106 mg/dL Normal GLU 96 Result Comment: Please note revised GLUCOSE reference range effective 2017. LAB L501.1000 7-18 mg/dL Normal BUN 13 LAB L501.1100 0.55-1.02 mg/dL High CREAT,SERUM 1.15 Result Comment: The validity of the calculated GFR AND GFRAA in patients over 70 years has not been determined. Clinical correlation is essential. LAB L501.1110 >60 mL/min Low EST GFR 51 Result Comment: Non- GFR Calc LAB L501.1115 >60 mL/min Normal EST GFR - AA 61 Result Comment: GFR Calc LAB L501.1255 ml/min Normal Estimated CRCL 41.42 LAB L501.1300 10-20 RATIO Normal BUN/CRE 11.3 LAB L501.2200 8.5-10 mg/dL Low .1 CA 7.9 LAB L501.5300 136-14 mmol/L Normal 5 NA 141 LAB L501.5600 3.5-5. mmol/L Normal 1 K 4.0 LAB L501.5900 98-107 mmol/L High CL 110 LAB L501.6100 21.0-3 mmol/L Normal 2.0 CO2 22.0 LAB L501.6200 5-15 Normal GAP 9 Performed By: #### L500.2500 #### [facility] [address] [place], [place], [address] Observed: 05/02/2018 Status: F Source: [place] CDIFF (MOLECULAR) 5:20 AM [facility] [place] Is the patient receiving laxatives? N New/unexplained onset of 3 or more stools in past 24 hrs? Y Cdiff-Molecular Normal Reference Range = Negative C. Diff DNA Negative- No toxigenic C. Diff DNA Detected NAAT METHOD Testing was performed using nucleic acid amplification Performed By: #### M100.6796 #### [facility] [address] [place], [place], [address] Observed: 05/02/2018 Status: F Source: [place] ENTERIC PATHOGEN 5:20 AM [facility] PANEL STOOL REPOSITORY EP PANEL STOOL Not detected for Campylobacter group, Salmonella species, Shigella species, Vibrio Group, Yersinia enterocolitica, EHEC (Shiga Toxin 1, Shiga Toxin 2), Norovirus Gl/Gll, and Rotavirus A. Other common stool pathogens are not detected on this panel include: Aeromonas/Plesiomonas or parasites. Order testing for these organisms separately if suspected. This is an amplified DNA test which makes it both specific and sensitive. Normal Reference Range = Not Detected CAMPYLOBACTER Not Detected Salmonella Not Detected Shigella sp. Not Detected Shiga Toxin Not Detected Yersinia Not Detected VIBRIO Not Detected Norovirus Not Detected Rotavirus Not Detected Performed By: #### M100.637 #### [facility] [address] [place], [address] HISTORY AND PHYSICAL Observed: 05/02/2018 Status: F Source: [place] EXAM 1:57 AM [facility] Medical Records Department [address] [place] [address] History and Physical 05/01/18 2325 MR#: [id number] Acct: [id number] Name: EMMA WEAVER Rep #: [id number] : 1955 62 From: Alice Abrams PCP: Sosa Chandler DO Status: ADM BREEZY Y Location: [place] [address] Problem List (1) SIRS (systemic inflammatory response syndrome) Status: Acute (2) Viral syndrome Status: Acute (3) HLD (hyperlipidemia) Status: Chronic Qualifiers: Hyperlipidemia type: unspecified Qualified Code(s): E78.5 - Hyperlipidemia, unspecified (4) Prediabetes Status: Chronic (5) GERD (gastroesophageal reflux disease) Status: Chronic Qualifiers: Esophagitis presence: esophagitis presence not specified Qualified Code(s): K21.9 - Gastro-esophageal reflux disease without esophagitis (6) Hiatal hernia Status: Chronic (7) Obesity Status: Chronic Qualifiers: Obesity type: unspecified obesity type Obesity classification: adult class 2 (BMI 35 - 39.9) Serious obesity comorbidity presence: unspecified whether serious comorbidity present Body mass index: BMI 36.0-36.9 Qualified Code(s): E66.9 - Obesity, unspecified; Z68.36 - Body mass index (BMI) 36.0-36.9, adult (8) History of depression Status: Chronic (9) Benign hypertension Status: Chronic History of Present Illness Date of Admission: 05/01/18 Chief Complaint: URI symptoms, fatigue, weakness, arthralgias, myalgias, fevers. The patient is a 62 y/o F w/ PMHx: Depression and Anxiety, HTN, HLD, Obesity, Prediabetes, GERD w/ Hiatal Hernia who presents to the [facility] ED on 05/01/18 with history of general malaise, fatigue, URI symptoms including rhinorrhea, postnasal drip as well as initially facial pressure with evaluation at urgent care the Friday prior with diagnosis at that time sinusitis treated with oral Bactrim with now onset myalgias, arthralgias, fevers and chills as well as home BP 90 over 60s. Patient did note she has had poor appetite recently and decreased oral hydration. She states that her facial pressure has resolved. In the ED workup included T102.3, heart rate 90, BP 129/77, respiratory rate 22, 98% on room air, CBC with W BC 5.2, hemoglobin 12.7, platelet 238 without market left shift, CMP with sodium 132, BUN/creatinine 17/1.42, lactic acid 2.8, urinalysis not marked appearing, CT brain with no acute findings, CT face and sinus with no evidence of acute sinus abnormality or soft tissue inflammation, chest x-ray with no acute findings, rapid influenza negative, blood culture x2 pending per ED, respiratory viral panel pending. The ED patient administered normal saline, GI cocktail, Tylenol. Past Medical History Past Medical History (Chronic Problems): Chronic Problems (Last Reviewed 04/28/18 @ 10:28 by Lupis Chase) HLD (hyperlipidemia) (Chronic) Prediabetes (Chronic) GERD (gastroesophageal reflux disease) (Chronic) Hiatal hernia (Chronic) Hearing loss (Chronic) Obesity (Chronic) Hx of familial combined hyperlipidemia (Chronic) History of depression (Chronic) Benign hypertension (Chronic) Medical History: Medical History (Last Reviewed 04/28/18 @ 10:28 by Lupis Chase) Anemia D64.9 Depression F32.9 Severe headache R51 Shoulder pain M25.519 Skin cancer C44.90 Allergies adhesive tape Allergy (Verified 05/01/18 19:54) Rash Penicillins Allergy (Verified 05/01/18 19:54) Hives Home Medications: Ambulatory Orders Medication Instructions Recorded Atorvastatin Calcium [Lipitor] 10 mg PO QHS 12/28/13 Escitalopram Oxalate [Lexapro] 20 mg PO DAILY 12/28/13 Surgical History: Surgical History (Last Reviewed 04/28/18 @ 10:28 by Lupis Chase) History of repair of ACL Z98.890 history of right hand surgery Surgical History: - - Right knee ACL repair, cholecystectomy, right hand surgery x2 secondary to crush injury and follow-up skin grafting. 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 Paternal History Items: - - Patient notes a paternal family history of hypertension and history of lung cancer, at 80. Review of Systems Constitutional: Reports: Anorexia, Chills, Fever, Malaise, Weakness, Fatigue. Denies: Weight Change HEENT: Denies: Head Aches, Sinus Congestion, Sinus Drainage Cardiovascular: Denies: Chest Pain, Palpitations Respiratory: Denies: Cough, Shortness of breath at rest, Sputum production Gastrointestinal: Reports: Nausea. Denies: Abdominal Pain, Vomiting Genitourinary: Denies: Dysuria Musculoskeletal: Reports: Joint Pain, Muscle pain. Denies: Joint Tenderness Skin: Denies: Rash, Wounds Neurological: Denies: Numbness, Tingling, Focal weakness Psychiatric: Reports: Anxiety, Depression. Denies: Homicidal Ideations, Suicidal Ideations Hematologic/ Lymphatic: Denies: Easy Bruising, Easy Bleeding VTE Information - Inpt Only VTE Present on Admission: No VTE Mechan Device Prophylaxis: SCD's VTE Pharm Prophylaxis ordered?: Yes Patient Problems: Active and Suspected Problems (Last Reviewed 04/28/18 @ 10:28 by Lupis Chase) SIRS (systemic inflammatory response syndrome) (Acute) Viral syndrome (Acute) Subjective: Seated upright in the ED bed, fatigued appearance. Objective: Physical Examination: General: awake, alert, oriented x 3 and cooperative, seated upright in the ED bed in no apparent distress. Skin: flushed color, turgor, no icterus, cyanosis. HEENT: AT/NC, EOMI, PERRLA, dry MM, no carotid bruits or JVD noted, no TTP facial sinus regions, OP w/ mild posterior erythema/post-nasal drip irritation. Lungs: CTA bilaterally, moderate effort, mild decrease BL bases, no rales, ronchi or wheezing. Heart: Regular rate and rhythm; no gallop, rub audible. Abdomen: soft, obese, NTTP, ND, normal BS, no HSM. Extremities: no cyanosis, clubbing, or edema. Neurological: patient awake, alert, oriented x 3; cognitive function intact; pupils equally reactive to light and accomodation; cranial nerves II-XII grossly normal, moving all 4 extremities, no focal deficits, strength moderately globally decreased secondary to acute presentation. Psychiatric: affect appears flat, fatigued, no acute evidence of depressive or anxiety feelings. - Physical Exam Vital Signs Temp Pulse Resp BP Pulse Ox 99.5 F H 82 16 131/69 H 96 05/01/18 21:41 05/01/18 23:13 05/01/18 23:13 05/01/18 23:13 05/01/18 23:13 Oxygen Delivery Method Room Air Weight: 209 lb 3.499 oz Body Mass Index (BMI) 37.0 Microbiology Past 72 Hours 05/01/18 20:15 Influenza Types A,B Direct FA (MARTHA) - Final Mucosa - Nose Laboratory Tests Past 24 Hrs WBC 5.2 RBC 4.73 Hgb 12.7 Hct 39.2 MCV 82.9 WBC RBC Hgb Hct MCV MCH MCHC Assessment/Plan All Active Problems (Last Reviewed 04/28/18 @ 10:28 by Lupis Chase) SIRS (systemic inflammatory response syndrome) (Acute) Viral syndrome (Acute) Sinusitis, acute (Acute) The patient is a 62 y/o F w/ PMHx: Depression and Anxiety, HTN, HLD, Obesity, Prediabetes, GERD w/ Hiatal Hernia who presents to the [facility] ED on 05/01/18 with history of general malaise, fatigue, URI symptoms including rhinorrhea, postnasal drip as well as initially facial pressure with evaluation at urgent care the Friday prior with diagnosis at that time sinusitis treated with oral Bactrim with now onset myalgias, arthralgias, fevers and chills as well as home BP 90 over 60s. (1) SIRS Criteria w/ Elevated Lactic Acid secondary to Suspected Acute Viral Syndrome, complicated by #2 NANCI: ED workup included T102.3, heart rate 90, BP 129/77, respiratory rate 22, 98% on room air, CBC with W BC 5.2, hemoglobin 12.7, platelet 238 without market left shift, CMP with sodium 132, BUN/creatinine 17/1.42, lactic acid 2.8, urinalysis not marked appearing, CT brain with no acute findings, CT face and sinus with no evidence of acute sinus abnormality or soft tissue inflammation, chest x-ray with no acute findings, rapid influenza negative, blood culture x2 pending per ED, respiratory viral panel pending. Will admit to [facility], maintain on IVFs, continue supportive care interventions, HOB, IS parameters w/ pending Bld cx x 2 from ED. Defer abx therapy as suspect viral syndrome and suspect lactic acid elevation secondary to NANCI with repeat LA pending. (2) Acute kidney injury: Secondary to poor oral intake, dehydration. Admission BUN/Cr 17/1.42, prior baseline creatinine noted to be 0.9. Will hydrate, hold nephrotoxic medications and repeat chemistry in AM. If no improvement would plan FeNa assessment and renal US. (3) ? Recent Acute Sinusitis: Noted evaluation at , treated w/ bactrim, CT head and facial/sinus without acute findings, suspect viral syndrome, will defer continuation bactrim, if needed may add flonase. (4) Prediabetes mellitus type II: HgBA1c pending, allow clears and ADAT to ADA diet, accu checks w/ ISS. (5) Obesity: Weight loss and lifestyle changes encouraged. (6) Anxiety and depression: Continue home Lexapro regimen. (7) Hypertension: Continue home regimen including metoprolol with hold parameters, PRN hydralazine. (8) Hyperlipidemia: Continue home statin regimen. (9) GERD w/ Hiatal Hernia: PPI. (10) DVT Prophylaxis: SCDs, renally dosed lovenox. Code Visit OBSV E AND M: [id number] Initial observation care L3 05/02/18 0157 <Electronically signed by Alice Abrams > Date Alice Abrams Cosigner Signature: Date (if applicable) CC: Alice Abrams; Sosa Chandler DO Signed EMERGENCY DEPARTMENT Observed: 05/02/2018 Status: F Source: [place] SUMMARY 12:57 AM [facility] Medical Records Department [address] [place] [address] Emergency Department Summary 05/01/18 2234 MR#: [id number] Acct: [id number] Name: EMMA WEAVER Rep #: [id number] : 1955 62 From: Nurys Drew MD PCP: Sosa Chandler DO Status: ADM BREEZY - ER Visit Summary Date of Service: 05/01/18 Chief Complaint: Anxiety, depression, low blood pressure History of Present Illness: The patient is a 62 F reports not feeling well for a while. She was seen at the [facility] 3 days ago and placed on Bactrim for sinusitis. Patient reports body aches and chills today. Her blood pressure at home tonight was in the 90s over 60s. She does describe facial pressure with some congestion. No significant cough. No vomiting or diarrhea. Physical Examination: Blood pressure is 129/77, temperature 102.3, heart rate 90, respiratory rate 22, pulse ox 98% on room air. Patient is sitting upright in bed. She appears ill but not toxic. Head neck examination does reveal moist mucous membranes. No meningismus. Heart is regular rate and rhythm. Lung sounds are clear. Abdomen is soft and nontender. Hypoactive but present bowel sounds are noted. Skin examination reveals no rash or lesions. Test Results: Two-view chest x-ray is unremarkable. CT head shows no acute findings. CT of the sinuses shows no acute sinus abnormality. CBC is unremarkable. Chemistry studies significant for a sodium of 132 and a creatinine 1.42. LFTs unremarkable. Urinalysis shows 15 ketones but no sign of acute infection. Lactate is mildly elevated at 2.8. Influenza swab is negative. Blood cultures were sent. Emergency Department Course and Treatment: Patient is given IV fluids along with p.o. Tylenol. Repeat temperature is currently 99.5. Vital signs are stable. At this time I recommended hospitalization for IV fluids and repeat blood work. Patient has been on Bactrim for the past 3 days taking her most recent dose this morning. I will speak with the hospitalist regarding preference on broad-spectrum antibiotic coverage versus waiting to see if source of fever declares itself. Treatment Plan: [] Disposition: Admit Impression: SIRS This note was generated with Ornisation software. It may contain incorrect words, spelling, and punctuation that were not noted in review of the chart prior to signing ED Disposition - Plan for ED Patient: Chief Complaint: General Illness Referrals: RameshSosa, DO [Primary Care Provider] - What to do if you have Problems For any increased pain, shortness of breath, bleeding, nausea or vomiting, chest pain, or any unexpected problems, contact your Primary Care Provider. Call [facility] ([phone]) or report to the closest Emergency Room. Call 911 if necessary. 05/02/18 0057 <Electronically signed by Nurys Drew MD> Date Nurys Drew MD Cosigner Signature (If Indicated): Date CC: Sosa Chandler DO LACTIC ACID Collected: 05/02/2018 Status: F Source: [place] 12:35 AM [facility] [place] TYPE CODE TESTS RESULT OUT OF RANGE REFERENCE UNITS LAB L503.6005 0.4-2.0 mmol/L Normal LACTIC ACID 0.8 Performed By: #### L503.6005 #### [facility] [address] [place], [place], [address] Observed: 05/02/2018 Status: F Source: [place] RESPIRATORY PANEL 12:01 AM [facility] RE[facility]ITORY RP PANEL ADENOVIRUS Not Detected HUMAN METAPHNEUMO Not Detected INFLUENZA A Not Detected INFLUENZA A (SUBTYPE H1) Not Detected INFLUENZA A (SUBTYPE H3) Not Detected INFLUENZA B Not Detected PARAINFLUENZA 1 Not Detected PARAINFLUENZA 2 Not Detected PARAINFLUENZA 3 Not Detected PARAINFLUENZA 4 Not Detected RHINOVIRUS Not Detected RSV A Not Detected RSV B Not Detected NAAT METHOD Testing was performed using nucleic acid amplification Performed By: #### M100.638 #### [facility] [address] [place], [place], [address] URINALYSIS, COMPLETE Collected: 05/01/2018 Status: F Source: [place] 9:50 PM [facility] Order Comment: Order Date: 05/01/18 How was Urine Obtained? HULL AND DECK REMOVER TO SPECIFY TYPE CODE TESTS RESULT OUT OF RANGE REFERENCE UNITS LAB L400.3000 Yellow COLOR Normal Yellow LAB L400.3050 Clear Normal CLARITY Clear LAB L400.3200 Normal mg/dl Normal GLUCOSE, UR Normal LAB L400.3300 Negative mg/dL Normal BILIRUBIN URINE Negative LAB L400.3400 Negative mg/dl High 15 KETONE UR LAB L400.3465 1.002-1.030 Normal SP.GR. DIPSTX 1.015 LAB L400.3550 5.0 - 8.0 pH UR Normal 8.0 LAB L400.3600 Negative mg/dl High PROT 15 DIPSTX LAB L400.3700 Normal mg/dl High 1 UROBILI LAB L400.3750 Negative Normal NITRITE UR Negative LAB L400.3780 Negative /ul Normal OCCULT BLOOD-UR Negative LAB L400.3800 Negative /ul High LEUK 25 ESTERASE LAB L400.4050 0-5 /hpf WBC Normal 0-5 SEEN LAB L400.4100 0-5 /hpf 0 Normal RBC-UA SEEN LAB L400.4150 5-10 /hpf SQUAM Normal EPI 5-10 SEEN LAB L400.4300 None Seen /hpf 0 Normal BACTERIA SEEN LAB L400.4350 <or=2+ /hpf 0 Normal MUCUS, URINE SEEN Performed By: #### L400.0001 #### [facility] [address] [place], [place], [address] BASIC METABOLIC Collected: 05/01/2018 Status: F Source: [place] PROFILE (BMP) 8:36 PM [facility] TYPE CODE TESTS RESULT OUT OF RANGE REFERENCE UNITS LAB L501.0100 74-106 mg/dL Normal GLU 95 Result Comment: Please note revised GLUCOSE reference range effective 2017. LAB L501.1000 7-18 mg/dL Normal BUN 17 LAB L501.1100 0.55-1.02 mg/dL High CREAT,SERUM 1.42 Result Comment: The validity of the calculated GFR AND GFRAA in patients over 70 years has not been determined. Clinical correlation is essential. LAB L501.1110 >60 mL/min Low EST GFR 40 Result Comment: Non- GFR Calc LAB L501.1115 >60 mL/min Low EST GFR - AA 48 Result Comment: GFR Calc LAB L501.1255 ml/min Normal Estimated CRCL 33.54 LAB L501.1300 10-20 RATIO Normal BUN/CRE 12.0 LAB L501.2200 8.5-10 mg/dL Normal .1 CA 9.2 LAB L501.5300 136-14 mmol/L Low 5 NA 132 LAB L501.5600 3.5-5. mmol/L Normal 1 K 3.6 LAB L501.5900 98-107 mmol/L Normal CL 100 LAB L501.6100 21.0-3 mmol/L Normal 2.0 CO2 22.0 LAB L501.6200 5-15 Normal GAP 10 Performed By: #### L500.2500, L500.3400 #### [facility] [address] [place], [address] LIVER PROFILE Collected: 05/01/2018 Status: F Source: [place] 8:36 PM [facility] TYPE CODE TESTS RESULT OUT OF RANGE REFERENCE UNITS LAB L501.1500 6.4-8.2 g/dL Normal T PROT 8.2 LAB L501.1800 3.2-5.0 g/dL Normal ALB 4.0 LAB L501.1950 2.2-4.2 g/dL Normal GLOB 4.2 LAB L501.4100 15-37 U/L Normal AST 28 LAB L501.4305 45-117 U/L Normal ALK P 114 LAB L501.4405 13-56 U/L Normal ALT 33 LAB L501.4600 0.20-1.00 mg/dL Normal T BILI 0.50 LAB L501.4700 0.00-0.30 mg/dL Normal D BILI 0.12 Performed By: #### L500.2500, L500.3400 #### [facility] [address] [place], [address] LACTIC ACID Collected: 05/01/2018 Status: F Source: [place] 8:36 PM [facility] Order Comment: Yes/No query for Sepsis Lactate Rule Y TYPE CODE TESTS RESULT OUT OF REFERENCE UNITS RANGE LAB L503.6005 0.4-2.0 mmol/L High LACTIC ACID 2.8 Result Comment: Critical Result(s) Called at: 21:10:54 05/01/2018 by: Ashley Rain Performed By: #### L503.6005 #### [facility] [address] [place], [address] MAGNESIUM Collected: 05/01/2018 Status: F Source: [place] 8:36 PM [facility] TYPE CODE TESTS RESULT OUT OF RANGE REFERENCE UNITS LAB L501.5200 1.6-2.6 mg/dL Normal MG 1.7 Performed By: #### L501.5200 #### [facility] [address] [place], [address] Observed: 05/01/2018 Status: F Source: [place] CULTURE, BLOOD (WB) 8:36 PM [facility] BC No growth in 5 days. Performed By: #### M200.1000 #### [facility] [address] [place], [address] CBC W/DIFF, AUTOMATED Collected: 05/01/2018 Status: F Source: [place] 8:25 PM [facility] TYPE CODE TESTS RESULT OUT OF RANGE REFERENCE UNITS LAB L100.1000 4.4-11.0 K/mm3 Normal WBC 5.2 LAB L100.1200 4.2-5.4 M/mm3 Normal RBC 4.73 LAB L100.1300 12.0-15.0 g/dl Normal HGB 12.7 LAB L100.1400 37-47 % Normal HCT 39.2 LAB L100.1500 81-99 fL Normal MCV 82.9 LAB L100.1600 27.0-32.0 pg Low MCH 26.8 LAB L100.1700 32-36 g/gl Normal MCHC 32.4 LAB L100.1810 11.6-14.6 % Normal RDW CV 14.0 LAB L100.1820 35.1-43.9 fl Normal RDW SD 42.4 LAB L100.1900 150-450 K/mm3 Normal PLT 238 LAB L100.2000 6.2-12.0 fl Normal MPV 10.1 LAB L100.2100 47-70 % High NEUT% 72.5 LAB L100.2200 19-41 % Low LY% 13.5 LAB L100.2300 0-10 % High MONO% 10.1 LAB L100.2400 0-5 % Normal EO% 3.5 LAB L100.2500 0-1 % Normal BASO% 0.0 LAB L100.2550 0.0-0.9 % Normal IM GRAN % 0.400 Result Comment: IG% - Immature Granulocytes (promyelocytes, myelocytes and metamyelocytes) > 1% indicates that a LEFT SHIFT is Present. LAB L100.2620 2.0-7.7 X10 3/uL Normal Absolute Neut 3.8 LAB L100.2720 0.83-4.51 X10 3/ul Low Absolute Lymph 0.70 Performed By: #### L100.0100 #### [facility] [address] [place], [address] HEMOGLOBIN A1C Collected: 05/01/2018 Status: F Source: [place] 8:25 PM [facility] TYPE CODE TESTS RESULT OUT OF RANGE REFERENCE UNITS LAB L501.9985 4.2-6.3 % Normal HGB A1C 5.8 Performed By: #### L501.9985 #### [facility] [place], [address] Observed: 05/01/2018 Status: F Source: [place] CULTURE, BLOOD (WB) 8:25 PM [facility] BC No growth in 5 days. Performed By: #### M200.1000 #### [facility] [address] [place], [address] Observed: 05/01/2018 Status: F Source: [place] INFLUENZA A+B (RAPID 8:15 PM [facility] REPOSITORY Order Date: 05/01/18 FLU A/B Rapid Negative test results should be confirmed by culture. Order Rapid Viral Culture for Influenzae A+B ([id number]) if clinically indicated. Influenza Ag, Direct Presumptive NEGATIVE for Influenza A/B Antigen (See Note) Performed By: #### M101.0101 #### [facility] [address] [place], [address] BRAIN/HEAD WITHOUT Observed: 05/01/2018 Status: F Source: [place] CONTRAST 8:09 PM [facility] Imaging Services [address] [address] Brain/Head without Contrast MR#: [id number] Acct: [id number] Name: EMMA WEAVER Rep #: [id number] : 1955 F 62 From: Roel Coyne DO PCP: Sosa Chandler DO Status: REG ER Study: Brain/Head without Contrast Date of Exam: 05/01/18 Exam# [id number] Ordering Dr: Nurys Drew MD STUDY: CT BRAIN WITHOUT CONTRAST REASON FOR EXAM: Female, 62 years old. Facial pain with headache. RADIATION DOSAGE (If Supplied By Facility): CTDIvol = ( 44.99 ) mGy, DLP = ( 779.24 ) mGycm TECHNIQUE: Transaxial CT imaging of the brain was performed without administration of intravenous contrast material. Individualized dose optimization techniques were used for this CT. COMPARISON: To March 2018 CT head FINDINGS: Normal soft tissue structures. Normal calvarium. There is mild cerebral atrophy with widening of the extra- axial spaces and ventricular dilatation. Normal white matter tracts of the cerebral hemispheres. Normal basal ganglia and thalami. Normal brainstem. Normal cerebellum. There is no intracranial hemorrhage. There are no findings of an acute ischemic infarction. Normal visualized paranasal sinuses. CT/Brain/Head without Contrast IMPRESSION: No evidence of acute intracranial bleed, mass or ischemia. Electronically Signed: Roel Coyne DO at 21:38 EST , Service support , CC: Nurys Drew MD; Sosa Chandler DO Software Computer Specialist: Signed SINUS/FACIAL BONE Observed: 05/01/2018 Status: F Source: [place] 8:09 PM [facility] Imaging Services [address] [place] [address] Sinus/Facial Bone MR#: [id number] Acct: [id number] Name: EMMA WEAVER Rep #: [id number] : 1955 F 62 From: Roel Coyne DO PCP: Sosa Chandler DO Status: REG ER Study: Sinus/Facial Bone Date of Exam: 05/01/18 Exam# [id number] Ordering Dr: Nurys Drew MD STUDY: CT MAXILLOFACIAL SINUSES REASON FOR EXAM: Female, 62 years old. Facial pain and headache. RADIATION DOSAGE (If Supplied By Facility): CTDIvol = ( 29.38 ) mGy, DLP = ( 554.80 ) mGycm TECHNIQUE: The patient was scanned in a multi detector CT scanner. High resolution axial imaging was performed without the administration of intravenous contrast material. Sagittal and coronal images were reconstructed. Individualized dose optimization techniques were used for this CT. COMPARISON: None. FINDINGS: FRONTAL SINUSES: Normal aeration, without mucosal inflammatory disease. ETHMOIDAL SINUSES: Normal aeration, without mucosal inflammatory disease. MAXILLARY SINUSES: Minimal inferior maxillary mucosal thickening is present with no evidence of fluid layering. SPHENOIDAL SINUSES: Normal aeration, without mucosal inflammatory disease. There is patency of the bilateral maxillary infundibuli with normal uncinate processes, ethmoid bullae, and hiatus semilunaris. Normal bilateral middle turbinates. Normal bilateral inferior turbinates. Normal midline nasal septum. There is patency of the bilateral nasal airways. The visualized osseous structures are normal. The visualized bilateral orbital contents are normal. CT/Sinus/Facial Bone IMPRESSION: No evidence of acute sinus abnormality or soft tissue inflammation. Electronically Signed: Roel Coyne DO at 21:42 EST , Service support , CC: Nurys Drew MD; Sosa Chandler DO Software Computer Specialist: Signed CHEST PA AND LATERAL Observed: 05/01/2018 Status: F Source: [place] 8:09 PM [facility] Imaging Services [address] [place] [address] Chest PA and Lateral MR#: [id number] Acct: [id number] Name: EMMA WEAVER Rep #: [id number] : 1955 F 62 From: Toñito Ruiz MD PCP: Sosa Chandler DO Status: REG ER Study: Chest PA and Lateral Date of Exam: 05/01/18 Exam# [id number] Ordering Dr: Nurys Drew MD STUDY: X-RAY CHEST REASON FOR EXAM: Female, 62 years old. Fever and low blood pressure TECHNIQUE: Frontal and lateral views of the chest. COMPARISON: May 20, 2016 CT chest FINDINGS: The lungs are clear and expanded. There is no demonstrated pleural abnormality. Normal size heart. Normal mediastinum and sharyn. Normal visualized pulmonary arteries. Normal visualized aortic arch and descending thoracic aorta. Normal visualized thoracic spine. Normal visualized ribs, clavicles, and shoulders. There is no demonstrated abnormality of the visualized soft tissue structures of the upper abdomen. RAD/Chest PA and Lateral IMPRESSION: Normal x-ray examination of the chest. Electronically Signed: Toñito Ruiz MD at 22:00 EST , Service support , CC: Nurys Drew MD; Sosa Chandler DO Software Computer Specialist: Signed URGENT CARE VISIT Observed: 04/28/2018 Status: F Source: [place] REPORT 10:49 AM [facility] [address] [place] [address] OFFICE VISIT Date of Service: 04/28/18 MR#: [id number] Acct: [id number] Name: EMMA WEAVER Rep #: [id number] : 1955 Provider: Rian SHORT Age/Sex: 62/F Location[place] [facility] Status: Signed Intake Vital Signs04/28/18 Height 5 ft 3 in 04/28/18 Weight: 198 lb 04/28/18 Body Mass Index (BMI) 35.0 04/28/18 Blood Pressure 140/86 H Intake Visit Reasons: SINUS INFECTION/ 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 Accompanied by: self Is patient in pain?: No Allergies adhesive tape Allergy (Verified 04/28/18 10:23) Rash Penicillins Allergy (Verified 04/28/18 10:23) Hives Medications Atorvastatin Calcium [Lipitor] 10 mg PO QHS 12/28/13 [History Confirmed 04/28/18] Escitalopram Oxalate [Lexapro] 20 mg PO DAILY 12/28/13 [History Confirmed 04/28/18] Famotidine [Pepcid] 20 mg PO DAILY 12/28/13 [History Confirmed 04/28/18] Metoprolol(XL)Succ [Toprol Xl (Beta Molly)] 25 mg PO DAILY 12/28/13 [History Confirmed 04/28/18] Nortriptyline HCl 25 mg PO DAILY 12/28/13 [History Confirmed 04/28/18] pantoprazole 20 mg tablet,delayed release 20 mg PO ONCE tab 09/09/17 [History Confirmed 04/28/18] Liothyronine Sodium [Cytomel] 5 mcg PO BID 03/10/18 [History Confirmed 04/28/18] sulfamethoxazole 800 mg-trimethoprim 160 mg tablet 1 tab PO Q12H 7 Days #14 tab 04/28/18 [Rx Confirmed 04/28/18] PFSH Medical History Anemia (Acute) Depression (Acute) Severe headache (Acute) Shoulder pain (Acute) Skin cancer (Acute) Surgical History History of repair of ACL (Acute) history of right hand surgery (Acute) Social History Smoking Status: Never smoker alcohol intake: never HPI HPI Chief Complaint: congestion Details: EMMA WEAVER, is a 62 F who presents to the office today for complaint of nasal congestion and pressure for the past 7-8 days with new onset of pain over the past several days. Patient states that she has had multiple sinus infections in the past with similar type symptoms. She localizes the pain predicted to over her eyes. She denies fever, chills, sweats. No nausea, vomiting, diarrhea. No other associated symptoms or alleviating/aggravating factors. ROS Const Constitutional: Positive for headache(s); no fever(s), chills, night sweats or abnormal sleep pattern ENT ENT: Positive for headache(s), nasal congestion, sinus pressure, sinus pain and nasal discharge; no ear pain Resp Respiratory: No cough or shortness of breath Cardio Cardiology: No shortness of breath, irregular heart rhythm or fast heart rate Neuro Neurology: Positive for headache(s); no confusion Psych Psychiatric: No abnormal sleep pattern, No confusion Exam Const General: cooperative, healthy appearing HENMT Head: normal to inspection Ears: hearing grossly normal bilaterally, TM's normal bilaterally, EAC's normal Nose: nasal discharge purulent Face and sinus: sinus tenderness frontal and maxillary Mouth: oral mucosae normal Throat: abnormal tonsil bilaterally, postnasal drainage Resp Effort AND Inspection: normal respiratory effort Auscultation: Bilateral: Clear to Auscultation Cardio Palpation: normal PMI Rate: regular rate Rhythm: regular rhythm Neuro General: alert, CN's II-XI intact bilaterally Psych Appearance: grossly normal Mental Status: mental status grossly normal Assessment AND Plan Problems 1. Acute non-recurrent maxillary sinusitis J01.00 Status Acute Plan Due to patient's penicillin allergy she will be prescribed Bactrim. Encouraged to get plenty of rest, drink lots of clear liquids, and use Tylenol or Ibuprofen (unless contraindicated) for fever and comfort. Patient also educated on other symptomatic management techniques. To be seen in 7-10 days if no improvement; sooner if worsening of symptoms. Patient advised of potential red flags and when appropriate report to the ED. Patient verbalized understanding of all the above. Medications New: Coding Level of Care Code Off vis,est,level 3 Diagnoses Acute non-recurrent maxillary sinusitis J01.00 Sinusitis location: maxillary Recurrence: non-recurrent 04/28/18 1049 <Electronically signed by Rian SHORT> Date Rian Ruelas DEJA Clarkpatricia Signature: Date (if applicable) CC: BASIC METABOLIC Collected: 04/15/2018 Status: F Source: [place] PROFILE ([facility]) 2:12 PM [facility] TYPE CODE TESTS RESULT OUT OF RANGE REFERENCE UNITS LAB L501.0100 74-106 mg/dL Normal GLU 104 Result Comment: Fasting Glucose result from 100 to 125 mg/dL suggests IMPAIRED HOMEOSTASIS per A.D.A. criteria. Please note revised GLUCOSE reference range effective 2017. LAB L501.1000 7-18 mg/dL Normal BUN 17 LAB L501.1100 0.55-1.02 mg/dL Normal CREAT,SERUM 0.96 Result Comment: The validity of the calculated GFR AND GFRAA in patients over 70 years has not been determined. Clinical correlation is essential. LAB L501.1110 >60 mL/min Normal EST GFR 63 Result Comment: Non- GFR Calc LAB L501.1115 >60 mL/min Normal EST GFR - AA 76 Result Comment: GFR Calc LAB L501.1300 10-20 RATIO Normal BUN/CRE 17.8 LAB L501.2200 8.5-10.1 mg/dL CA Normal 9.1 LAB L501.5300 136-145 mmol/L NA Normal 143 LAB L501.5600 3.5-5.1 mmol/L K Normal 3.5 LAB L501.5900 98-107 mmol/L CL Normal 106 LAB L501.6100 21.0-32.0 mmol/L Normal CO2 29.0 LAB L501.6200 5-15 Normal GAP 8 Performed By: #### L500.2500 #### [facility] [address] [place], [address] EMERGENCY DEPARTMENT Observed: 03/10/2018 Status: F Source: [place] SUMMARY 4:53 PM [facility] Medical Records Department [address] [place] [address] Emergency Department Summary 03/10/18 1526 MR#: [id number] Acct: [id number] Name: EMMA WEAVER Rep #: [id number] : 1955 62 From: Hawk Davis PCP: Sosa Chandler DO Status: REG ER - ER Visit Summary Date of Service: 03/10/18 Chief Complaint: Fall off horse History of Present Illness: The patient is a 62 F patient fall off a horse 1 PM. [place] riding, was getting ready to get off her horse when the horse moved to the right. Fell onto left upper back. Did hit her head. Had a helmet on. States she saw stars. Mild headache. No visual change. No nausea or vomiting. No neck or back pain. Pain in left upper chest wall. No dyspnea. No anticoagulation medications. States she has had fractures in the past with no surgical intervention. Followed by Dr. Montoya. No lower extremity pain no abdominal pain. No paresthesias. Physical Examination: General: Alert and oriented 3, mild distress HEENT: Normocephalic, atraumatic. No hemotympanum, no facial tenderness. Moist mucosa membranes Neck: supple, nontender. Cardiovascular: Regular rate and rhythm, no murmurs. His left upper chest wall tenderness with no crepitus. Respiratory: Normal breath sounds, symmetric, no distress Abdomen: Soft, nontender, nondistended Extremities: Nontender, no edema, pulses intact 4 Neuro: no focal neurological deficits. Test Results: CT head and neck no intracranial process. Degenerative changes of the neck. No fractures. CT noncontrast chest, no fractures. Degenerative changes thoracic spine. Emergency Department Course and Treatment: Patient traumatic injury fall off a horse 5 feet high. No focal neurological deficits. However has slight headache, discussed concussion symptoms. CT scan images were negative. With her chest wall pain with injury noncontrast scan obtained shows no rib fractures or pulmonary contusions. There is degenerative changes of the spine. She was given fentanyl initially for symptom control. She has tolerated Hillburn's in the past. Concussion precautions discussed. She will follow- up with her PCP for reevaluation. All questions were answered. OARRS negative. Treatment Plan: [] Disposition: Discharge Impression: 1. Fall 2. Concussion without loss of consciousness 3. Chest wall contusion This note was generated with Or[employer]isation software. It may contain incorrect words, spelling, and punctuation that were not noted in review of the chart prior to signing ED Disposition - Plan for ED Patient: Disposition: Home or Assisted Living Chief Complaint: Fall Diagnosis: Concussion without loss of consciousness, initial encounter, Chest wall contusion, Fall off horse Instructions: ED Contusion Chest Wall, ED Concussion Prescriptions: Hydrocodone Bitart/Apap 5-325 [Hillburn 5MG-325MG] 1 tablet PO Q6H PRN PRN 3 Days #10 tablet PRN Reason: Pain Referrals: Sosa Chandler DO [Primary Care Provider] - 3-5 Days What to do if you have Problems For any increased pain, shortness of breath, bleeding, nausea or vomiting, chest pain, or any unexpected problems, contact your Primary Care Provider. Call [facility] ([phone]) or report to the closest Emergency Room. Call 911 if necessary. 03/10/18 1653 <Electronically signed by Hawk Davis> Date Hawk Davis Cosigner Signature (If Indicated): Date CC: Sosa Chandler DO CHEST WITHOUT Observed: 03/10/2018 Status: F Source: [place] CONTRAST 3:26 PM [facility] Imaging Services [address] [place] [address] Chest without Contrast MR#: [id number] Acct: [id number] Name: EMMA WEAVER Rep #: [id number] : 1955 F 62 From: Martir Crisostomo MD PCP: Sosa Chandler DO Status: REG ER Study: Chest without Contrast Date of Exam: 03/10/18 Exam# [id number] Ordering Dr: Hawk Sousa DO STUDY: CT CHEST WITHOUT CONTRAST REASON FOR EXAM: Female, 62 years old. Chest pain after a fall RADIATION DOSAGE (If Supplied By Facility): CTDIvol = ( 18.15 ) mGy, DLP = ( 567.00 ) mGycm TECHNIQUE: Transaxial imaging was performed without the administration of intravenous contrast material. Individualized dose optimization techniques were used for this CT. COMPARISON: None. FINDINGS: The lungs are normal. There is no demonstrated pleural abnormality. Normal heart and pericardium. There are scattered subcentimeter axillary and mediastinal lymph nodes. Normal hilar regions. Normal unenhanced pulmonary arteries. Normal aorta arch and descending thoracic aorta. There are multi-level degenerative changes of the thoracic spine. No demonstrated sternal, rib, or vertebral body fracture There is no demonstrated abnormality of the visualized upper abdomen. CT/Chest without Contrast IMPRESSION: No CT evidence of an acute pulmonary process Degenerative bony changes in the thoracic spine but no demonstrated osseous fracture Electronically Signed: Brennon Crisostomo MD at 16:15 EDT , Service support , CC: Sosa Chandler DO; Hawk Sousa Software Computer Specialist: Signed BRAIN/HEAD WITHOUT Observed: 03/10/2018 Status: F Source: [place] CONTRAST 3:26 PM [facility] Imaging Services [address] [place] [address] Brain/Head without Contrast MR#: [id number] Acct: [id number] Name: EMMA WEAVER Rep #: [id number] : 1955 F 62 From: Martir Jacobs MD PCP: Sosa Chandler DO Status: REG ER Study: Brain/Head without Contrast Date of Exam: 03/10/18 Exam# [id number] Ordering Dr: Hawk Sousa DO STUDY: CT BRAIN WITHOUT CONTRAST REASON FOR EXAM: Female, 62 years old. Fall from horse. RADIATION DOSAGE (If Supplied By Facility): CTDIvol = ( 44.99 ) mGy, DLP = ( 779.24 ) mGycm TECHNIQUE: Transaxial CT imaging of the brain was performed without administration of intravenous contrast material. Individualized dose optimization techniques were used for this CT. COMPARISON: None. FINDINGS: Normal soft tissue structures. Normal calvarium. There is mild bifrontal cerebral atrophy with some widening of the frontotemporal extra-axial spaces. Normal white matter tracts of the cerebral hemispheres. Normal basal ganglia and thalami. Normal brainstem. Normal cerebellum. Our mild atherosclerotic calcifications of the cavernous segments of the internal carotid arteries. There is no intracranial hemorrhage. There are no findings of an acute ischemic infarction. Normal visualized paranasal sinuses. Incidental note of efe bullosa on the right and mild leftward deviation of the mid nasal septum. CT/Brain/Head without Contrast IMPRESSION: No acute intracranial injury. Electronically Signed: Brennon Jacobs MD at 16:20 EDT , Service support , CC: Sosa Chandler DO; aHwk Sousa Software Computer Specialist: Signed SPINE CERVICAL Observed: 03/10/2018 Status: F Source: [place] WITHOUT CONTRAS 3:26 PM [facility] Imaging Services [address] [place] [address] Spine Cervical without Contras MR#: [id number] Acct: [id number] Name: EMMA WEAVER Rep #: [id number] : 1955 F 62 From: Martir Jacobs MD PCP: Sosa Chandler DO Status: REG ER Study: Spine Cervical without Contras Date of Exam: 03/10/18 Exam# [id number] Ordering Dr: Hawk Sousa DO STUDY: CT CERVICAL SPINE WITHOUT CONTRAST REASON FOR EXAM: Female, 62 years old. Fall from horse. RADIATION DOSAGE (If Supplied By Facility): CTDIvol = ( 13.50 ) mGy, DLP = ( 247.20 ) mGycm TECHNIQUE: High resolution transaxial imaging was performed without contrast material. Sagittal and coronal images were reconstructed. Individualized dose optimization techniques were used for this CT. COMPARISON: None FINDINGS: Normal craniovertebral junction. Normal anterior atlantoaxial articulation. Normal odontoid process. There is straightening of the normal cervical lordosis. No acute fracture of the vertebral bodies and posterior osseous elements. C2-3: Normal endplates. Normal disc height and morphology. There is degenerative arthrosis of the right facet articulation with severe joint space narrowing and some periarticular spurring Normal central canal and intervertebral neuroforamina. C3-4: Anterior C3 endplate osteophyte, as well as degenerative spurring of the posterior lateral uncovertebral joints, greater on the left. Moderate disc height narrowing. There is moderately severe degenerative narrowing of the bilateral facet joint spaces with greater hypertrophic degenerative change on the left. Normal central canal. Mild osseous encroachment on the left intervertebral neuroforamen. C4-5: Degenerative left posterolateral endplate lipping. Mild to moderate posterior disc height narrowing. Mild/moderate degenerative narrowing and hypertrophic change of the bilateral facet joints. Normal central canal and intervertebral neuroforamina. C5-6: Mild anterior and right posterior lateral endplate spurring. Focal invaginations of the opposing endplates consistent with subcortical cystic degenerative changes and/or Schmorl's nodes. Moderate disc height narrowing. Early degenerative arthroses of the bilateral facet articulations. Normal central canal and intervertebral neuroforamina. C6-7: There is circumferential endplate spurring. Focal invaginations of the opposing endplates consistent with subcortical cystic degenerative changes and/or Schmorl's nodes. Moderate disc height narrowing. Early degenerative arthroses of the left facet articulation. Normal central canal and intervertebral neuroforamina. C7-T1: Normal endplates. Normal disc height and morphology. Early hypertrophic degenerative arthrosis of the left facet joint. Normal central canal and intervertebral neuroforamina. Normal visualized soft tissue structures. CT/Spine Cervical without Contras IMPRESSION: Multilevel degenerative changes, as described above. No acute fracture of the cervical spine. Electronically Signed: Brennon Jacobs MD at 16:27 EDT , Service support , CC: Sosa Sousa Software Computer Specialist: Signed CBC W/DIFF, AUTOMATED Collected: 02/11/2018 Status: F Source: [place] 12:28 PM [facility] TYPE CODE TESTS RESULT OUT OF RANGE REFERENCE UNITS LAB L100.1000 4.4-11.0 K/mm3 Normal WBC 5.0 LAB L100.1200 4.2-5.4 M/mm3 Normal RBC 4.93 LAB L100.1300 12.0-15.0 g/dl Normal HGB 13.1 LAB L100.1400 37-47 % Normal HCT 41.8 LAB L100.1500 81-99 fL Normal MCV 84.8 LAB L100.1600 27.0-32.0 pg Low MCH 26.6 LAB L100.1700 32-36 g/gl Low MCHC 31.3 LAB L100.1810 11.6-14.6 % Normal RDW CV 13.9 LAB L100.1820 35.1-43.9 fl Normal RDW SD 43.1 LAB L100.1900 150-450 K/mm3 Normal PLT 280 LAB L100.2000 6.2-12.0 fl Normal MPV 10.1 LAB L100.2100 47-70 % Normal NEUT% 59.1 LAB L100.2200 19-41 % Normal LY% 28.5 LAB L100.2300 0-10 % Normal MONO% 9.4 LAB L100.2400 0-5 % Normal EO% 2.2 LAB L100.2500 0-1 % Normal BASO% 0.6 LAB L100.2550 0.0-0.9 % Normal IM GRAN % 0.200 Result Comment: IG% - Immature Granulocytes (promyelocytes, myelocytes and metamyelocytes) > 1% indicates that a LEFT SHIFT is Present. LAB L100.2620 2.0-7.7 X10 3/uL Normal Absolute Neut 3.0 LAB L100.2720 0.83-4.51 X10 3/ul Normal Absolute Lymph 1.43 Performed By: #### L100.0100 #### [facility] [address] [place], [address] COMPREHENSIVE METABOLIC Collected: 02/11/2018 Status: F Source: [place] [facility] 12:28 PM [facility] TYPE CODE TESTS RESULT OUT OF RANGE REFERENCE UNITS LAB L501.0100 74-106 mg/dL Normal GLU 94 Result Comment: Please note revised GLUCOSE reference range effective 2017. LAB L501.1000 7-18 mg/dL Normal BUN 17 LAB L501.1100 0.55-1.02 mg/dL High CREAT,SERUM 1.18 Result Comment: The validity of the calculated GFR AND GFRAA in patients over 70 years has not been determined. Clinical correlation is essential. LAB L501.1110 >60 mL/min Low EST GFR 49 Result Comment: Non- GFR Calc LAB L501.1115 >60 mL/min Low EST GFR - AA 59 Result Comment: GFR Calc LAB L501.1300 10-20 RATIO Normal BUN/CRE 14.4 LAB L501.1500 6.4-8.2 g/dL T Normal PROT 7.9 LAB L501.1800 3.2-5.0 g/dL Normal ALB 4.0 LAB L501.1950 2.2-4.2 g/dL Normal GLOB 3.9 LAB L501.2000 0.9-2.4 RATIO Normal A/G 1.0 LAB L501.2200 8.5-10.1 mg/dL CA Normal 9.5 LAB L501.4100 15-37 U/L Normal AST 22 LAB L501.4305 45-117 U/L Normal ALK P 104 LAB L501.4405 13-56 U/L Normal ALT 26 LAB L501.4600 0.20-1.00 mg/dL T Normal BILI 0.60 LAB L501.5300 136-145 mmol/L NA Normal 141 LAB L501.5600 3.5-5.1 mmol/L K Normal 4.0 LAB L501.5900 98-107 mmol/L CL Normal 107 LAB L501.6100 21.0-32.0 mmol/L Normal CO2 25.0 LAB L501.6200 5-15 Normal GAP 9 Performed By: #### L500.4050, L500.4100 #### [facility] [address] [place], [address] LIPID PROFILE Collected: 02/11/2018 Status: F Source: [place] 12:28 PM [facility] TYPE CODE TESTS RESULT OUT OF RANGE REFERENCE UNITS LAB L501.4900 200 mg/dL Normal CHOL 186 Result Comment: <200 mg/dL Desirable 200-240 mg/dL Borderline >240 mg/dL High Risk LAB L501.5000 mg/dL Normal TRIG 113 Result Comment: The drugs N-Acetylcysteine and Metamizole may falsely depress this assay. Serum Triglycerides Reference Interval Normal <150 mg/dL Borderline high 150 - 199 mg/dL High 200 - 499 mg/dL Very High > or = 500 mg/dL LAB L501.6400 mg/dL Normal HDL 62 Result Comment: The drugs N-Acetylcysteine and Metamizole may falsely depress this assay. Reference Range HDL <40 mg/dL Low HDL Cholesterol HDL >or= 60 mg/dL High HDL Cholesterol LAB L501.6500 0-130 mg/dL Normal LDL 101 LAB L501.6600 5-40 mg/dL Normal VLDL 23 Performed By: #### L500.4050, L500.4100 #### [facility] [address] [place], [place], [address] VITAMIN D,25 HYDROXY Collected: 02/11/2018 Status: F Source: [place] 12:28 PM [facility] TYPE CODE TESTS RESULT OUT OF RANGE REFERENCE UNITS LAB L506.1000 29.95-100.01 ng/mL Normal Vitamin D 30.0 25-OH Result Comment: Vitamin D 25(OH) Status Range Deficiency <20 ng/mL (50nmol/L) Insuffciency 20 - 30 ng/mL (50 - 75 nmol/L) Sufficiency 30 - 100 ng/mL (75 - 250 nmol/L) Toxicity >100 ng/mL (>250 nmol/L) Performed By: #### L506.1000 #### [facility] [address] [place], [address] ORTHOPEDIC VISIT Observed: 01/01/2018 Status: F Source: [place] REPORT 3:53 PM [facility] [address] [place] [address] [address] [place] [address] OFFICE VISIT Date of Service: 01/01/18 MR#: [id number] Acct: [id number] Name: EMMA WEAVER Rep #: [id number] : 1955 Provider: Malgorzata Goodwin DO Age/Sex: 62/F [place] [facility] Status: Signed Intake Intake Visit Reasons: LEFT HAND PAIN Is patient in pain?: Yes Pain scale (1-10): 1 Allergies adhesive tape Allergy (Verified 01/01/18 15:16) Rash Penicillins Allergy (Verified 01/01/18 15:16) Hives Medications Atorvastatin Calcium [Lipitor] 10 mg PO QHS 12/28/13 [History Confirmed 12/28/13] Escitalopram Oxalate [Lexapro] 20 mg PO DAILY 12/28/13 [History Confirmed 12/28/13] Famotidine [Pepcid] 20 mg PO DAILY 12/28/13 [History Confirmed 12/28/13] Metoprolol(XL)Succ [Toprol Xl (Beta Molly)] 25 mg PO DAILY 12/28/13 [History Confirmed 12/28/13] Nortriptyline HCl 25 mg PO DAILY 12/28/13 [History Confirmed 12/28/13] pantoprazole 20 mg tablet,delayed release 20 mg PO ONCE tab 09/09/17 [History Confirmed 09/09/17] PFSH Social History Smoking Status: Never smoker HPI LEFT HAND PAIN: Details: EMMA WEAVER is a 62 year old F here today for left hand pain. Patient notes that she smashed her hand into a wall between a wheelbarrow about 4 weeks ago. She had significant swelling and discoloration. Patient was able to move her hand so after 3 weeks she went to her PCP. She had an xray which was negative. She notes that her hand pain has improved. Patient has increased pain with bumping her hand but it is subsiding. Patient is not taking any pain medications. Denies numbness, tingling or other associated symptoms. Her xrays are here for review. ROS Const Reports system reviewed and no additional complaints, except as docu Eyes Reports system reviewed and no additional complaints, except as docu ENT Reports system reviewed and no additional complaints, except as docu Card Reports system reviewed and no additional complaints, except as docu Resp Reports system reviewed and no additional complaints, except as docu GI Reports system reviewed and no additional complaints, except as docu Reports system reviewed and no additional complaints, except as docu Musc Reports joint pain, Reports joint swelling Skin/Breast Reports system reviewed and no additional complaints, except as docu Neuro Yes system reviewed and no additional complaints, except as docu Psych Reports system reviewed and no additional complaints, except as docu Endo Reports system reviewed and no additional complaints, except as docu Ortho Exam Right Wrist/Hand Skin/Wound: Yes Swelling (at 3rd MP jt), Yes Ecchymosis Left Wrist/Hand Skin/Wound: Yes CDI, Yes Swelling (at 3rd MP jt), Yes Ecchymosis Contralateral Normal: Yes A1 manuela trigger: No Left Wrist: Yes ROM-Extension 0-60, Yes ROM-Supination 0-90, Yes ROM-Flexion 0-80 and Yes ROM-Pronation 0-80 Sensation: Radial: I, Ulnar: I, Median: I WRIST: ttp 3rd MP joint Assessment AND Plan 1. Contusion of left hand, initial encounter S60.222A Plan X-rays were reviewed. There is no obvious fracture, dislocation, or lucency noted. Explained that she had a bruise with blood vessel trauma from the pics from the injury and today she has some mild tenderness at radial border of 3rd MP joint, no subluxation and sagittal band is intact noted. She should wear a compression glove when active and use ice at the end of the day. Follow up as needed or sooner if pain, swelling, numbness or associated symptoms, or concerns develop. All questions answered. Patient in agreement of plan. Coding Level of Care Code Off vis,est,level 4 Diagnoses Contusion of left hand, initial encounter S60.222A Contusion area: hand Encounter type: initial encounter Laterality: left 01/01/18 9593 <Electronically signed by Malgorzata Goodwin DO> Date Malgorzata Goodwin DO Cosigner Signature: Date (if applicable) CC: HAND MIN 3 VIEWS Observed: 12/24/2017 Status: F Source: [place] 2:59 PM [facility] Imaging Services [address] [place] [address] Hand Min 3 Views MR#: [id number] Acct: [id number] Name: EMMA WEAVER Rep #: [id number] : 1955 F 62 From: Kory Nunez DO PCP: Sosa Chandler DO Status: REG CLI Study: Hand Min 3 Views Date of Exam: 12/24/17 Exam# [id number] Ordering Dr: Sosa Chandler DO STUDY: X-RAY - LEFT HAND REASON FOR EXAM: Female, 62 years old. Trauma, status post injury TECHNIQUE: 3 view(s) of the hand. COMPARISON: None. FINDINGS: Normal radiocarpal articulation. Normal distal radioulnar joint. Normal visualized carpal bones. Normal carpal articulations Normal carpometacarpal articulation of the thumb. Normal second through fifth carpometacarpal joints. Normal metacarpi. Normal metacarpophalangeal joint of the thumb. Normal interphalangeal joint of the thumb. Normal proximal and distal phalanges of the thumb. Normal metacarpophalangeal joints of the second through fifth fingers. Normal proximal and distal interphalangeal joints of the second through fifth fingers. Normal phalanges of the second through fifth fingers. There is a ring on the fourth finger, which could not be removed. The soft tissue structures are unremarkable. RAD/Hand Min 3 Views IMPRESSION: Normal x-ray examination of the hand. Electronically Signed: Kory Nunez DO at 10:33 EDT Tel , Service support , CC: Sosa Chandler DO Software Computer Specialist: Signed ORTHOPEDIC VISIT Observed: 11/20/2017 Status: F Source: [place] 2:00 PM [facility] [address] [place] [address] [address] [place] [address] OFFICE VISIT Date of Service: 11/18/17 MR#: [id number] Acct: [id number] Name: EMMA WEAVER Rep #: [id number] : 1955 Provider: Malgorzata Goodwin DO Age/Sex: 62/F [place] [facility] Status: Signed Intake Vital Signs11/18/17 Height 5 ft 2 in Intake Visit Reasons: LEFT 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 Accompanied by: None Is patient in pain?: No Allergies adhesive tape Allergy (Verified 09/09/17 08:11) Rash Penicillins Allergy (Verified 09/09/17 08:11) Hives Medications Atorvastatin Calcium [Lipitor] 10 mg PO QHS 12/28/13 [History Confirmed 12/28/13] Escitalopram Oxalate [Lexapro] 20 mg PO DAILY 12/28/13 [History Confirmed 12/28/13] Famotidine [Pepcid] 20 mg PO DAILY 12/28/13 [History Confirmed 12/28/13] Metoprolol(XL)Succ [Toprol Xl (Beta Molly)] 25 mg PO DAILY 12/28/13 [History Confirmed 12/28/13] Nortriptyline HCl 25 mg PO DAILY 12/28/13 [History Confirmed 12/28/13] pantoprazole 20 mg tablet,delayed release 20 mg PO ONCE tab 09/09/17 [History Confirmed 09/09/17] [facility] Social History Smoking Status: Never smoker HPI LEFT SHOULDER PAIN: Details: EMMA WEAVER is a 62 year old F here today for an injection in her left shoulder. Patient has no pain today. Denies swelling, popping or clicking. Denies numbness or tingling. Denies taking any medication to help when she has shoulder pain. Patient states she has had previous injections for her shoulder. Her pain today is located along shoulder up to her neck. Worse with shrugging her shoulder, no numbness or tingling down her arm, etc. Ortho Exam Left Shoulder Skin/Wound: Yes CDI Contralateral Normal: Yes Testing: No Hawkin's, No Neer's, No TTP Biceps, No TTP AC Joint, No Drop Arm, No empty can, No translation, Yes AROM-Forward Elevation 0-180, Yes AROM-External Rotation at side 0-60 Assessment AND Plan 1. Trapezius muscle spasm M62.838 Plan discussed again her tremor and patient states she has a neuro appt in the future, has had MRI of brain, etc that was essentially negative, and her tremors have worsened so she will be seeing her neuro for this. discuussed dry needling and that she has no intraarticular pain today on exam, more trapezius in nature. On exam patient has very little shoulder joint pain, but does have trap pain and spasm. Her treatment options are PT for dry needling. Reviewed her neuro consult and results Follow up in 3-4 months or sooner if pain, swelling, numbness or associated symptoms, or concerns develop. All questions answered. Patient in agreement of plan. Coding Level of Care Code Off vis,est,level 4 Diagnoses Trapezius muscle spasm M62.838 11/20/17 1400 <Electronically signed by Malgorzata Goodwin DO> Date Malgorzata Goodwin DO Cosigner Signature: Date (if applicable) CC: ORTHOPEDIC VISIT Observed: 11/19/2017 Status: F Source: [place] RE[place] 12:16 PM [facility] [address] [place] [address] OFFICE VISIT Date of Service: 11/06/17 MR#: [id number] Acct: [id number] Name: EMMA WEAVER Rep #: [id number] : 1955 Provider: Malgorzata Goodwin DO Age/Sex: 62/F [place] [facility] Status: Signed Intake Intake Visit Reasons: LEFT HIP Allergies adhesive tape Allergy (Verified 09/09/17 08:11) Rash Penicillins Allergy (Verified 09/09/17 08:11) Hives Medications Atorvastatin Calcium [Lipitor] 10 mg PO QHS 12/28/13 [History Confirmed 12/28/13] Escitalopram Oxalate [Lexapro] 20 mg PO DAILY 12/28/13 [History Confirmed 12/28/13] Famotidine [Pepcid] 20 mg PO DAILY 12/28/13 [History Confirmed 12/28/13] Metoprolol(XL)Succ [Toprol Xl (Beta Molly)] 25 mg PO DAILY 12/28/13 [History Confirmed 12/28/13] Nortriptyline HCl 25 mg PO DAILY 12/28/13 [History Confirmed 12/28/13] pantoprazole 20 mg tablet,delayed release 20 mg PO ONCE tab 09/09/17 [History Confirmed 09/09/17] [facility] Social History Smoking Status: Never smoker HPI LEFT HIP: Details: EMMA WEAVER is a 62 year old F here today for left hip pain for years that is increasing. She complains of deep hip pain, no recent imaging or treatment. Patient Denies numbness, tingling or other associated symptoms. She has difficulty with deep stairs or getting in and out of a truck and deep pain when crossing her legs. Her pain can wrap around to her back as well. She states there is a feeling of instability with some activities as well. Denies any bowel or bladder changes, no fever, chills or nausea or other constitutional symptoms. see chart. Ortho Exam Right Hip Skin: Yes CDI Contralateral Normal: No Hip: present TTP Greater Troch Impingement Test: 1 Labral Stress Test: 1 Special Tests: No iliopsoas snap HIP: neg heel strike Left Hip Skin/Wound: Yes CDI Contralateral Normal: No Impingement Test: 1 Labral Stress Test: 2 HIP: neg heel strike Spine Neuro: No Straight Leg Raise, Babinski or Light Touch Sensation General: alert, awake, oriented x3, gait normal Skin: Yes CDI Cognition: normal cognition Speech: speech normal Gait: normal gait Sensory Exam: no sensory deficits noted SPINE TESTING CERVICAL THORACIC LUMBAR SLR: Negative Musculoskeletal General: Yes normal posture and normal gait Thoracic/Lumbar Spine: thoraco-lumbar ROM normal, No thoraco- lumbar ROM limited, No pain with thoraco-lumbar ROM Strength 0=absent - 5=normal R Hip Flexor (L1-3): 5, L Hip Flexor (L1-3): 5, R Quadriceps (L2-4): 5, L Quadriceps (L2-4): 5, R Anterior Tibialis (L4-5): 5, L Anterior Tibialis (L4-5): 5, R EHL (L5): 5, L EHL (L5): 5, R Hamstrings (L5-S1): 5, L Hamstrings (L5-S1): 5, GS (S1): 5, L GS (S1): 5, R Peroneals (S1): 5, L Peroneals (S1): 5 Details: no pain with any rom. weakness noticed with single leg stance but no Trendelenburg Assessment AND Plan 1. Lumbar back pain M54.5 Plan X-rays were reviewed. There is no obvious fracture, dislocation, or lucency noted. 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 The deep ache experienced with riding and high steps is limited to only those activities and is no present today. She can be pinching a nerve in those positions and we will get an MRI if the pain remains, gave a PT script today for core strengthening and stretching, especially of ITB. There is a resting tremor of bilateral quads, she can follow up with a neurologist or review with Dr Chandler, instructed to monitor. Follow up as needed or sooner if pain, swelling, numbness or associated symptoms, or concerns develop. All questions answered. Patient in agreement of plan. 2. Left hip pain M25.552 Orders Orders: Plan Detail Other Orders Orders: Coding Level of Care Code Off vis,est,level 4 Diagnoses Lumbar back pain M54.5 Left hip pain M25.552 11/19/17 1216 <Electronically signed by Malgorzata Goodwin DO> Date Malgorzata Garnettigngallo Signature: Date (if applicable) CC: INITAL EVALUATION (1) Observed: 11/18/2017 Status: F Source: [place] - PT 6:57 PM [facility] [address] [place] [address] Fax [facility] INITIAL EVALUATION MR#: [id number] Acct: [id number] Name: EMMA WEAVER Rep #: [id number] : 1955 62 From: Phyllis Tran DPT Referring Dr.: Malgorzata Goodwin DO Status: REG RCR Insurance: [employer] INSURANCE Patient's Visit Information EMMA WEAVER is a 62 year old F referred to Physical Therapy by Malgorzata Goodwin DO with a diagnosis of LBP and Left Hip Pain. Date of Evaluation: 11/18/17 Physical Therapist: Phyllis Tran - Visit Plan Frequency: 2x /Week Duration: 4 Weeks Plan: Focus on core s/s and postural education - Subjective Subjective: Patient reports that her left hip has been bothering her for months with insidious onset. She went to the MD who took x-rays which she reports were negative- did not give her an injection and sent her to PT. Over the years she has been thrown by horses and mostly lands on her left side. The pain is located over the left hip to the knee on the lateral aspect. Pain at its worst: 4/10 agg: movement, pushing, pulling, driving >2 hours. Best: 0/10 but she has not found anything that eases the pain once she starts to hurt. She reports the pain can either be achy or sharp/shooting. Sharp/shooting happens when she steps up on a greater step with the left LE. N/T down to the knee that comes and goes. Denies any back pain. No change or loss of bowel/bladder. Sleep: not disturbed but she doesn't sleep well normally. Work: retired- but is very active. She is currently not but plans to get back to riding horses. PMHx: skin cancer, depression, heart palpitations, stomach issues, and hiatal hernia. Meds: Lexipro, protonics, troprolol, nortiptolene, thyroid, lipitor. - Objective Posture: FH, RS, Increased kyphosis- can correct with verbal cues but doesn't maintain in both sitting and standing. Gait: no deviation noted. ROM: WFL- reports discomfort with SB Right and forward flexion of lumbar spine. Hip/knee/ankle: WNL. SLS: 30 sec bilateral with no LOB or UE A. HR/TR: WNL. Sensation/Reflex: WNL bilaterally. Palpation: not tender to touch in LE or lumbar spine. Strength: Core: poor, Hip: Left: 4/5 throughout Right 4+/5 throughout Knee/Ankle: 5/5. Flex: HS: moderate. Gastroc: moderate. Special Test: dural signs positive on the left slump: positive on the left - Goals Goal 1:: Patient will be I with HEP and progression Goal Time Frame: 4-6 Weeks Goal 2:: Patient will demo 5/5 strength in bilateral LE Goal Time Frame: 4-6 Weeks Goal 3:: Patient will maintain proper posture t/o tx session to demo increased core s/s Goal Time Frame: 4-6 Weeks - Rehabilitation Potential Physical Therapy Diagnosis: Patient presents with hypomobility- she has decreased core s/s leading to poor posture and increased pain Rehabilitation Potential: Fair - Anticipated Interventions Patient/Client Instruction: Educate patient on: Benefits of Fitness Program For the Purpose of:: To improve ability to perform ADL's Therapeutic Exercise to Include: Strength training, Endurance training, Coordination, Agility training, Body mechanics, Postural training, Flexibilty training, Dynamic Lumbar Stabilization For the Purpose of:: To improve muscle performance and motor function TENS: Yes Cryotherapy (ice pack, ice massage): Yes Thermo therapy (hot pack): Yes Ultrasound (thermal/non thermal): Yes For the Purpose of:: To decrease pain Thank you for the opportunity to evaluate your patient. For Medicare and Medicare HMO plans, please review the plan of care and approve it. It will need to be FAXED BACK to us at [phone] for Medicare purposes. Please let me know if there are questions or concerns regarding this plan of care. Physician Signature: Date: <Electronically signed by Phyllis Tran DPT> 11/18/17 1857 CC: Malgorzata Goodwin DO; Sosa Chandler DO ELR Signed For Medicare only, by signing this I certify the plan of care. Physicians Signature Date HIP 2-3 VIEWS WITH Observed: 11/06/2017 Status: F Source: [place] PELVIS 10:58 AM [facility] Imaging Services [address] [place] [address] Hip 2-3 Views with Pelvis MR#: [id number] Acct: [id number] Name: EMMA WEAVER Rep #: [id number] : 1955 F 62 From: Justin Hernandez MD PCP: Sosa Chandler DO Status: REG CLI Study: Hip 2-3 Views with Pelvis Date of Exam: 11/06/17 Exam# [id number] Ordering Dr: Malgorzata Goodwin DO STUDY: X-RAY - PELVIS AND LEFT HIP REASON FOR EXAM: Left hip pain for 2 years, worsening. TECHNIQUE: Radiological exam, hip, unilateral, with pelvis when performed; 2 or 3 views. COMPARISON: None. FINDINGS: There are small pelvic phleboliths. There is enthesopathy of the iliac wings bilaterally. Normal bilateral superior and inferior pubic rami. Normal pubic symphysis. Normal bilateral ischial tuberosities. Normal visualized left femoral head. Normal left acetabulum. Normal left hip joint. RAD/Hip 2-3 Views with Pelvis IMPRESSION: Enthesopathy of the iliac wings bilaterally. Otherwise, unremarkable x-ray examination of the pelvis and left hip. Electronically Signed: Justin Hernandez MD at 15:13 EDT Tel , Service support , CC: Malgorzata Goodwin DO; Sosa Chandler DO Software Computer Specialist: Signed L/S SPINE COMP/W Observed: 11/06/2017 Status: F Source: [place] BENDING VIEWS 10:58 AM [facility] Imaging Services [address] [place] [address] L/S Spine Comp/w Bending Views MR#: [id number] Acct: [id number] Name: EMMA WEAVER Rep #: [id number] : 1955 F 62 From: Aurelio Bustillo MD PCP: Sosa Chandler DO Status: REG CLI Study: L/S Spine Comp/w Bending Views Date of Exam: 11/06/17 Exam# [id number] Ordering Dr: Malgorzata Goodwin DO STUDY: X-RAY - LUMBOSACRAL SPINE REASON FOR EXAM: Female, 62 years old. Left hip pain for 2 years. TECHNIQUE: 6 view(s) of the lumbosacral spine including lateral flexion and extension views were obtained. COMPARISON: None FINDINGS: Normal lumbar lordosis. There is no substantial scoliosis. There is normal alignment of the vertebrae. There is limited flexion and extension with no abnormal motion. Normal vertebral bodies and endplates. There is intervertebral disc space narrowing at multiple levels, most marked at L4-5 with no significant osteophyte formation. There is mild diffuse facet sclerosis. Normal bilateral sacral ala, sacroiliac joints, and visualized sacrum. There are cholecystectomy clips. RAD/L/S Spine Comp/w Bending Views IMPRESSION: Minimal lumbar spondylosis. Limited flexion and extension with no abnormal motion. Electronically Signed: Aurelio Bustillo MD at 16:15 EDT , Service support , CC: Malgorzata Goodwin DO; Sosa Chandler DO Software Computer Specialist: Signed PROGRESS Observed: 10/07/2017 Status: COMPLETED Source: [facility] 8:26 AM [facility] REPOSITORY HNO ID: [id number] Author: Scotty Chamorro Service: (none) Author Type: Physician Type: Progress Notes Filed: 10/07/2017 9:05 AM Note Text: Scotty Chamorro MD Department of Orthopaedics Orthopa[facility] [address] [facility] [address] Dept: [phone] Dept October 06, 2017 CHIEF COMPLAINT: New Patient (Right wrist pain - Ref. Chiccorelli - last seen 02/18/12 Right trapezium fracture and hand crush injury) HPI: Ms. Emma Weaver is a 61 year old female who presents for consultation for her right wrist. Short time ago, she was hit in the hand by her horse and developed some pain. On review is found to have widening of her SL interval. Thus the other provider asked for right hand surgeon consultation. She really is having no pain and no issues with the hand or wrist at all. ASSESSMENT: S69.90XA Scapholunate ligament injury with no instability, initial encounter (primary encounter diagnosis) PLAN: Continue observation, possible cortisone injection or bracing down the line. FOLLOW UP INSTRUCTIONS: As Needed OBJECTIVE: Ms. Emma Weaver is a pleasant 61 year old in no apparent distress. Gen:BP 131/82 Pulse 64 Ht 5' 2 (1.58m) Wt 197 lb (89.4kg) BMI 36.02 kg/(m2). nl development, obese, no deformities ENT: Normocephalic, normal hearing, moist mucosa CV: Pulses:Radial= 2+ and symmetric, capillary refill < 2 secs, no peripheral edema/varicosities Skin: no rash, bruising or lesions. Good turgor. Psych: cooperative and appropriate, alert and oriented x 3, good mood and affect. Musculoskeletal: Patient has excellent range of motion. She does have some mild tenderness over the interval on the dorsal side. No instability. Median, radial ulnar nerves are intact. IMAGIN views from an outside facility of the right wrist show scapholunate dissociation and possibly some very mild radial scaphoid early arthritis. Supporting Subjective Information Below: Past Medical History: PAST MEDICAL HISTORY Diagnosis Date - ACL (anterior cruciate ligament) tear - Depression - Hearing loss - Hyperlipidemia - Hypertension - Skin cancer on her back Past Surgical History: PAST SURGICAL HISTORY Procedure Laterality Date - DANDC, DIAG AND/OR THERAPEUTIC Dilation AND curettage - KNEE ARTHROSCOPY 1999 Left - PAST SURGICAL HISTORY OF 12/2011 Incision and Drainage of right hand infection - REMOVAL GALLBLADDER 1991 - SKIN GRAFT HAND <20 SQ CM 01/2012 Family History: FAMILY HISTORY Problem Relation Age of Onset - Hypertension Mother - Cancer Father lung - Hypertension Father - Heart Mother Irregular heart beat Social History:Social History Marital status: Spouse name: Years of education: Number of children: Social History Main Topics Smoking status: Never Smoker Smokeless tobacco: Never Used Alcohol use: Yes Comment: Very Rarely Medications: Current Outpatient Prescriptions: pantoprazole DR (PROTONIX) 40 mg tablet Take 40 mg by mouth once daily. liothyronine (CYTOMEL) 5 mcg tablet Take 5 mcg by mouth twice daily. nortriptyline 25 mg capsule Take 1 capsule by mouth daily at bedtime. nortriptyline 10 mg capsule Take 1 capsule by mouth daily at bedtime. Cholecalciferol, Vitamin D3, 5,000 unit cap Take 1 capsule by mouth once daily. famotidine 20 mg tablet Take 1 tablet by mouth twice daily. atorvastatin (LIPITOR) 20 mg tablet Take 10 mg by mouth once daily. escitalopram (LEXAPRO) 20 mg tablet Take 1 tablet by mouth once daily. metoprolol succinate XL, long acting, 25 mg 24 hr tablet Take 1 tablet by mouth once daily. No current facility-administered medications for this visit. Allergies: Adhesive Tape (Rosins); Penicillins ROS: General (negative for fatigue, malaise, weight loss/gain) HEENT (negative for headache, earache, recent vision changes, sinus pain, sore throat) Respiratory (no recent shortness of breath, hemoptysis) CV (negative for chest tightness, palpitations) Musculoskeletal (see HPI) Psych (no depression, anxiety) REFERRING PHYSICIAN: Ms. Emma Weaver was referred to me for consultation by the following physician. This consultation note will be sent to the following physician by either mail or electronic medical record. Thais Baker [address] [facility] [address] [facility] [address] This note was partially generated using [employer] voice recognition system, and there may be some incorrect words, spellings, and punctuation that were not noted in checking the note before saving. Scotty Chamorro MD PROGRESS Observed: 10/06/2017 Status: COMPLETED Source: [facility] 1:39 PM [facility] REPOSITORY HNO ID: [id number] Author: Ashwini Dior Ma Service: (none) Author Type: (none) Type: Progress Notes Filed: 10/07/2017 9:05 AM Note Text: AMB ROOMING INTAKE FLOWSHEET DATA Risk Screening Do you have concerns about personal safety or safety in the home?: No Patient referred by Dr. Goodwin for R wrist. Patient has no pain. Ashwini Dior Ma CNOV Observed: 10/06/2017 Status: COMPLETED Source: [facility] 1:10 PM [facility] REPOSITORY Office Visit (ORTHWS) EMMA WEAVER ([id number]) 1955 F Date Time Provider Department 10/06/17 1:10 PM SCOTTY CHAMORRO During your visit today, we recorded the following information about you: Pulse Blood pressure Weight Height 64/minute 131/82 89.4 kg 1.575 m Ashwini Dior Ma 10/07/2017 9:05 AM Signed AMB ROOMING INTAKE FLOWSHEET DATA Risk Screening Do you have concerns about personal safety or safety in the home?: No Patient referred by Dr. Goodwin for R wrist. Patient has no pain. Ashwini Chamorro MD 10/07/2017 9:05 AM Signed Scotty Chamorro MD Department of Orthopaedics Orthopaedics [address] [facility] [address] Dept: [phone] Dept October 06, 2017 CHIEF COMPLAINT: New Patient (Right wrist pain - Ref. Chiccorelli - last seen 9/11/12 Right trapezium fracture and hand crush injury) HPI: Ms. Emma Weaver is a 61 year old female who presents for consultation for her right wrist. Short time ago, she was hit in the hand by her horse and developed some pain. On review is found to have widening of her SL interval. Thus the other provider asked for right hand surgeon consultation. She really is having no pain and no issues with the hand or wrist at all. ASSESSMENT: S69.90XA Scapholunate ligament injury with no instability, initial encounter (primary encounter diagnosis) PLAN: Continue observation, possible cortisone injection or bracing down the line. FOLLOW UP INSTRUCTIONS: As Needed OBJECTIVE: Ms. Emma Weaver is a pleasant 61 year old in no apparent distress. Gen:BP 131/82 Pulse 64 Ht 5' 2 (1.58m) Wt 197 lb (89.4kg) BMI 36.02 kg/(m2). nl development, obese, no deformities ENT: Normocephalic, normal hearing, moist mucosa CV: Pulses:Radial= 2+ and symmetric, capillary refill < 2 secs, no peripheral edema/varicosities Skin: no rash, bruising or lesions. Good turgor. Psych: cooperative and appropriate, alert and oriented x 3, good mood and affect. Musculoskeletal: Patient has excellent range of motion. She does have some mild tenderness over the interval on the dorsal side. No instability. Median, radial ulnar nerves are intact. IMAGIN views from an outside facility of the right wrist show scapholunate dissociation and possibly some very mild radial scaphoid early arthritis. Supporting Subjective Information Below: Past Medical History: PAST MEDICAL HISTORY Diagnosis Date - ACL (anterior cruciate ligament) tear - Depression - Hearing loss - Hyperlipidemia - Hypertension - Skin cancer on her back Past Surgical History: PAST SURGICAL HISTORY Procedure Laterality Date - DANDC, DIAG AND/OR THERAPEUTIC Dilation AND curettage - KNEE ARTHROSCOPY 1999 Left - PAST SURGICAL HISTORY OF 12/2011 Incision and Drainage of right hand infection - REMOVAL GALLBLADDER 1991 - SKIN GRAFT HAND <20 SQ CM 01/2012 Family History: FAMILY HISTORY Problem Relation Age of Onset - Hypertension Mother - Cancer Father lung - Hypertension Father - Heart Mother Irregular heart beat Social History:Social History Marital status: Spouse name: Years of education: Number of children: Social History Main Topics Smoking status: Never Smoker Smokeless tobacco: Never Used Alcohol use: Yes Comment: Very Rarely Medications: Current Outpatient Prescriptions: pantoprazole DR (PROTONIX) 40 mg tablet Take 40 mg by mouth once daily. liothyronine (CYTOMEL) 5 mcg tablet Take 5 mcg by mouth twice daily. nortriptyline 25 mg capsule Take 1 capsule by mouth daily at bedtime. nortriptyline 10 mg capsule Take 1 capsule by mouth daily at bedtime. Cholecalciferol, Vitamin D3, 5,000 unit cap Take 1 capsule by mouth once daily. famotidine 20 mg tablet Take 1 tablet by mouth twice daily. atorvastatin (LIPITOR) 20 mg tablet Take 10 mg by mouth once daily. escitalopram (LEXAPRO) 20 mg tablet Take 1 tablet by mouth once daily. metoprolol succinate XL, long acting, 25 mg 24 hr tablet Take 1 tablet by mouth once daily. No current facility-administered medications for this visit. Allergies: Adhesive Tape (Rosins); Penicillins ROS: General (negative for fatigue, malaise, weight loss/gain) HEENT (negative for headache, earache, recent vision changes, sinus pain, sore throat) Respiratory (no recent shortness of breath, hemoptysis) CV (negative for chest tightness, palpitations) Musculoskeletal (see HPI) Psych (no depression, anxiety) REFERRING PHYSICIAN: Ms. Emma Weaver was referred to me for consultation by the following physician. This consultation note will be sent to the following physician by either mail or electronic medical record. Thais Baker [address] [facility] [address] [facility] [address] This note was partially generated using [employer] voice recognition system, and there may be some incorrect words, spellings, and punctuation that were not noted in checking the note before saving. Scotty Chamorro MD Referring Provider: SELF [200] Allergies As of Date: 10/06/2017 Noted Allergy Reaction ADHESIVE TAPE (ROSINS) 02/18/2012 2 - Rash PENICILLINS 02/18/2012 2 - Rash Date Reviewed: 10/06/2017 Reviewed by: Ashwini Dior Ma - Fully Assessed Reason for Visit: New Patient [172] Cmt: Right wrist pain - Ref. Chiccorelli - last seen 02/18/12 Right trapezium fracture and hand crush injury Primary Visit Diagnosis:Scapholunate ligament injury with no instability, initial encounter [S69.90XA] Prescriptions as of 10/06/2017 Sig: PANTOPRAZOLE 40 MG TABLET,DEL* Take 40 mg by mouth once haroon* LIOTHYRONINE 5 MCG TABLET Take 5 mcg by mouth twice ignacio* * NORTRIPTYLINE 25 MG CAPSULE Take 1 capsule by mouth daily* * NORTRIPTYLINE 10 MG CAPSULE Take 1 capsule by mouth daily* * CHOLECALCIFEROL (VITAMIN D3) * Take 1 capsule by mouth once * * FAMOTIDINE 20 MG TABLET Take 1 tablet by mouth twice * * ATORVASTATIN 20 MG TABLET Take 10 mg by mouth once haroon* * ESCITALOPRAM 20 MG TABLET Take 1 tablet by mouth once d* * METOPROLOL SUCCINATE ER 25 MG* Take 1 tablet by mouth once d* Problem List As Of Date 10/06/2017 Noted Resolved Trapezium fracture [S62.173A] INVALID FOR* Hand crush injury [S67.20XA] INVALID FOR* Encounter Status:Closed by SCOTTY CHAMORRO MD on 10/07/17 DEXA BONE DENSITY Observed: 09/18/2017 Status: F Source: [place] STUDY 2:20 PM [facility] Imaging Services [address] [place] [address] Dexa Bone Density Study MR#: [id number] Acct: [id number] Name: EMMA WEAVER Rep #: [id number] : 1955 F 61 From: Zach Muñoz MD PCP: Sosa Chandler DO Status: REG CL Study: Dexa Bone Density Study Date of Exam: 09/18/17 Exam# [id number] Ordering Dr: Sosa Chandler DO STUDY: DUAL ENERGY X-RAY ABSORPTIOMETRY / DXA REASON FOR EXAM: Female, 61 years old. The patient is postmenopausal. Loss of height of 2 inches. TECHNIQUE: Bone Mineral Density (BMD) measurements of lumbar spine and bilateral hips were obtained. COMPARISON: Comparison is made with prior study dated July 26, 2015. FINDINGS: Lumbar Spine (L1-L4): g/cm2 (1.029) / T-score (-1.4) / Z-score (0.0) Findings are suggestive of osteopenia with a moderate fracture risk. Left Femur Total: g/cm2 (0.853) / T-score (-1.2) / Z- score (-0.2) Left Femoral Neck: g/cm2 (0.876) / T-score (-1.2) / Z- score (0.2) Right Femur Total: g/cm2 (0.850) / T-score (-1.2) / Z- score (-0.2) Right Femoral Neck: g/cm2 (0.872) / T-score (-1.2) / Z-score (0.2) The T-Scores on the most recent prior examination were: Lumbar Spine (L1-L4): There has been worsening of bone density since the previous examination. Left Femur Total: which represents an improvement of 0.4%. Right Femur Total: which represents a worsening of 0.6%. BD/Dexa Bone Density Study IMPRESSION: The patient is considered osteopenic as outlined below according to World [employer] Organization (WHO) criteria with a moderate fracture risk. There has been worsening of bone density since the previous examination. Reference Information: The T-score is the number of standard deviations above or below the standard which is normal for young adults at their peak bone mineral density. The World Health Organization (WHO) interprets the T-scores as follows: Above -1 Normal bone density Between -1 and -2.5 Osteopenia Equal to / or below -2.5 Osteoporosis As a practical clinical guideline, osteopenia may be graded as follows: Mild -1 through -1.5 Moderate -1.6 through -2.0 Severe -2.1 through -2.4 The Z-score is the number of standard deviations above or below age-matched controls. A Z-score of less than -1.5 would be considered abnormal. References: 1. NIH Osteoporosis and Related Bone Diseases http://www.osteo.org 2. International Society for Clinical Densitometry http://www.iscd.org 3. National Osteoporosis Foundation http://www.nof.org Electronically Signed: Zach Muñoz MD at 14:58 EDT Tel [phone], Service support , CC: Sosa Chandler DO Software Computer Specialist: Signed ORTHOPEDIC VISIT Observed: 09/09/2017 Status: F Source: [place] REPORT 12:36 PM [facility] [address] [place] [address] [address] [place] [address] OFFICE VISIT Date of Service: 09/09/17 MR#: [id number] Acct: [id number] Name: EMMA WEAVER Rep #: [id number] : 1955 Provider: Malgorzata Goodwin DO Age/Sex: 61/F [place] [facility] [place]: Signed Intake Intake Visit Reasons: right hand Allergies adhesive tape Allergy (Verified 09/09/17 08:11) Rash Penicillins Allergy (Verified 09/09/17 08:11) Hives Medications Atorvastatin Calcium [Lipitor] 10 mg PO QHS 12/28/13 [History Confirmed 12/28/13] Escitalopram Oxalate [Lexapro] 20 mg PO DAILY 12/28/13 [History Confirmed 12/28/13] Famotidine [Pepcid] 20 mg PO DAILY 12/28/13 [History Confirmed 12/28/13] Metoprolol(XL)Succ [Toprol Xl (Beta Molly)] 25 mg PO DAILY 12/28/13 [History Confirmed 12/28/13] Nortriptyline HCl 25 mg PO DAILY 12/28/13 [History Confirmed 12/28/13] pantoprazole 20 mg tablet,delayed release 20 mg PO ONCE tab 09/09/17 [History Confirmed 09/09/17] PFSH Social History Smoking Status: Never smoker HPI right hand: Details: EMMA WEAVER is a 61 year old F here today for right hand pain. Patient notes that a horse went to bite her hand and she accidently hit her hand on the horses cheek. Patient notes that her hand turned black and blue over her 5th metacarpal. She notes the injury was about 1.5 week ago. She denies any pain with gripping items. Her pain increases with palpating the bruising. She notes that she has a little puffiness. Patient denies any recent xrays. Denies numbness, tingling or other associated symptoms. ROS Const Reports system reviewed and no additional complaints, except as docu Eyes Reports system reviewed and no additional complaints, except as docu ENT Reports system reviewed and no additional complaints, except as docu Card Reports system reviewed and no additional complaints, except as docu Resp Reports system reviewed and no additional complaints, except as docu GI Reports system reviewed and no additional complaints, except as docu Reports system reviewed and no additional complaints, except as docu Musc Reports joint pain, Reports joint swelling Skin/Breast Reports system reviewed and no additional complaints, except as docu Neuro Yes system reviewed and no additional complaints, except as docu Psych Reports system reviewed and no additional complaints, except as docu Endo Reports system reviewed and no additional complaints, except as docu Ortho Exam Right Wrist/Hand Skin/Wound: Yes CDI, Yes Swelling, Yes Ecchymosis Contralateral Normal: Yes Right Wrist: Yes ROM-Extension 0-60, ROM-Supination 0-90, ROM-Flexion 0-80 and ROM-Pronation 0-80 Left Wrist/Hand Skin/Wound: Yes Swelling, Yes Ecchymosis Assessment AND Plan 1. Contusion of right hand, initial encounter S60.221A Plan gave patient dr chamorro's contact information. X-rays were reviewed. There is no obvious fracture, dislocation, or lucency noted but signs of an old fracture that has callus. Reviewed the SL widening that was previously seen and encouraged her to see a hand specialist. She has a contusion from the injury, she can try an doris for support. Follow up as needed or sooner if pain, swelling, numbness or associated symptoms, or concerns develop. All questions answered. Patient in agreement of plan. Plan Detail Other Orders Orders: Coding Level of Care Code Off vis,est,level 4 Diagnoses Contusion of right hand, initial encounter S60.221A Encounter type: initial encounter 09/09/17 1236 <Electronically signed by Malgorzata Goodwin DO> Date Malgorzata Goodwin DO Cosigner Signature: Date (if applicable) CC: HAND MIN 3 VIEWS Observed: 09/09/2017 Status: F Source: [place] 8:18 AM [facility] Imaging Services [address] [place] [address] Hand Min 3 Views MR#: [id number] Acct: [id number] Name: EMMA WEAVER Rep #: [id number] : 1955 F 61 From: Justin Hernandez MD PCP: Sosa Chandler DO Status: REG CLI Study: Hand Min 3 Views Date of Exam: 09/09/17 Exam# [id number] Ordering Dr: Malgorzata Goodwin DO STUDY: X-RAY - RIGHT HAND REASON FOR EXAM: Medial hand pain after injury 2 weeks ago. TECHNIQUE: 3 view(s) of the hand. COMPARISON: Radiographs 11/01/2016. FINDINGS: Normal radiocarpal articulation. Normal distal radioulnar joint. Normal visualized carpal bones. There is widening the scapholunate interval as on the prior study. Normal carpometacarpal articulation of the thumb. Normal second through fifth carpometacarpal joints. There is healed fracture deformity of the proximal fifth metacarpal. Normal metacarpophalangeal joint of the thumb. Normal interphalangeal joint of the thumb. Normal proximal and distal phalanges of the thumb. Normal metacarpophalangeal joints of the second through fifth fingers. Normal proximal and distal interphalangeal joints of the second through fifth fingers. Normal phalanges of the second through fifth fingers. The soft tissue structures are unremarkable. RAD/Hand Min 3 Views IMPRESSION: Healed fracture deformity of the proximal fifth metacarpal. Chronic tear of the scapholunate ligament. No demonstrated new injury. Electronically Signed: Justin Hernandez MD at 11:50 EDT Tel , Service support , CC: Malgorzata Goodwin DO; Sosa Chandler DO Software Computer Specialist: Signed CR-HAND MIN 3 VIEWS Observed: 09/09/2017 Status: F Source: [facility] 12:00 AM [facility] REPOSITORY Images were obtained outside of [facility] [id number] FREE T3 Collected: 07/14/2017 Status: F Source: [place] 12:07 PM [facility] TYPE CODE TESTS RESULT OUT OF RANGE REFERENCE UNITS LAB L501.85671 2.18-3.98 pg/mL Normal FREE T3 3.7 Performed By: #### L501.31282, L501.9520, L506.0400 #### [facility] [address] [place], [address] THYROID STIM HORMONE Collected: 07/14/2017 Status: F Source: [place] ([facility]) 12:07 PM [facility] TYPE CODE TESTS RESULT OUT OF RANGE REFERENCE UNITS LAB L501.9520 0.358-3.74 uIU/mL Normal TSH 2.11 Performed By: #### L501.97823, L501.9520, L506.0400 #### [facility] [address] [place], [address] T4 FREE DIRECT Collected: 07/14/2017 Status: F Source: [place] 12:07 PM [facility] TYPE CODE TESTS RESULT OUT OF RANGE REFERENCE UNITS LAB L506.0400 0.76-1.46 ng/dL Normal T4 FREE 0.80 DIRECT Performed By: #### L501.08629, L501.9520, L506.0400 #### [facility] [address] [place], [address] NORTRIPTYLINE LEVEL Collected: 07/14/2017 Status: F Source: [place] 12:07 PM [facility] TYPE CODE TESTS RESULT OUT OF RANGE REFERENCE UNITS LAB L3300.5500 50-150 ng/mL Normal NORTRIPTYL 58 Result Comment: Detection Limit = 20 Performed at: - [facility] [address] [id number] Contract Associate: Jean-Pierre Dos Santos MD, Phone: [phone] Performed By: #### L3300.5500 #### [facility] (refer to report for specific site) refer to report for address and phone number BRAIN WITHOUT Observed: 07/08/2017 Status: F Source: [place] CONTRAST 11:10 AM [facility] Imaging Services [address] [place] [address] Brain without Contrast MR#: [id number] Acct: [id number] Name: EMMA WEAVER Rep #: [id number] : 1955 F 61 From: Justice Charles MD PCP: Sosa Chandler DO Status: REG CLI Study: Brain without Contrast Date of Exam: 07/08/17 Exam# [id number] Ordering Dr: Mayur Charles MD STUDY: MRI BRAIN WITHOUT CONTRAST REASON FOR EXAM: Female, 61 years old. Tremors. Photophobia off-and-on x one year or more. TECHNIQUE: Standardized multiplanar fat and water weighted pulse sequences were obtained. COMPARISON: None. FINDINGS: No restricted diffusion to suspect acute or subacute ischemic infarct. No focal signal abnormalities throughout the brain parenchyma in all of the pulse sequences. The manuel matter, white matter, ventricles and cisterns are normal. Normal size of the ventricles and extra-axial spaces for the patient's age. Normal white matter tracts of the supratentorial brain. Normal bilateral basal ganglia. Normal thalami. There is no extra-axial fluid accumulation. Normal flow voids within the major intracranial circulation suggesting patency by spin echo criteria. Normal sella turcica, pituitary gland, infundibular stalk, optic chiasm and hypothalamus. Normal tectal plate and pineal gland. Normal midbrain, jerel and medulla. Normal cerebellum. Normal basal cisterns. Normal bilateral temporal bones. Normal bilateral internal auditory canals. No demonstrated orbital abnormality, within the constraints of a routine brain study. Normal visualized paranasal sinuses. Normal calvarium and skull base. Normal visualized soft tissue structures. Normal visualized upper cervical spine. MRI/Brain without Contrast IMPRESSION: Normal unenhanced MRI of the brain. Electronically Signed: Justice Charles MD at 13:46 EST , Service support , CC: Brandon Charles MD; Sosa Chandler DO Software Computer Specialist: Signed BUN Collected: 06/25/2017 Status: F Source: [place] 11:34 AM [facility] Order Comment: Has Patient had X-rays with Contrast this admission? N TYPE CODE TESTS RESULT OUT OF RANGE REFERENCE UNITS LAB L501.1000 7-18 mg/dL Normal BUN 16 Performed By: #### L501.1000, L501.1105, L501.11473, L501.9520, L506.0400 #### [facility] [address] [place], [place], [address] SERUM CREATININE AND Collected: 06/25/2017 Status: F Source: [place] GFR 11:34 AM [facility] Order Comment: Has Patient had X-rays with Contrast this admission? N TYPE CODE TESTS RESULT OUT OF RANGE REFERENCE UNITS LAB L501.1100 0.55-1.02 mg/dL Normal 0.97 CREAT,SERUM Result Comment: The validity of the calculated GFR AND GFRAA in patients over 70 years has not been determined. Clinical correlation is essential. LAB L501.1110 >60 mL/min Normal EST GFR 62 Result Comment: Non- GFR Calc LAB L501.1115 >60 mL/min Normal EST GFR - AA 75 Result Comment: GFR Calc Performed By: #### L501.1000, L501.1105, L501.67531, L501.9520, L506.0400 #### [facility] [address] [place], [address] FREE T3 Collected: 06/25/2017 Status: F Source: [place] 11:34 AM [facility] Order Comment: Has Patient had X-rays with Contrast this admission? N TYPE CODE TESTS RESULT OUT OF RANGE REFERENCE UNITS LAB L501.18707 2.18-3.98 pg/mL Normal FREE T3 3.3 Performed By: #### L501.1000, L501.1105, L501.05379, L501.9520, L506.0400 #### [facility] [address] [place], [address] THYROID STIM HORMONE Collected: 06/25/2017 Status: F Source: [place] ([facility]) 11:34 AM [facility] Order Comment: Has Patient had X-rays with Contrast this admission? N TYPE CODE TESTS RESULT OUT OF RANGE REFERENCE UNITS LAB L501.9520 0.358-3.74 uIU/mL Normal TSH 1.66 Performed By: #### L501.1000, L501.1105, L501.72617, L501.9520, L506.0400 #### [facility] [address] [place], [address] T4 FREE DIRECT Collected: 06/25/2017 Status: F Source: [place] 11:34 AM [facility] Order Comment: Has Patient had X-rays with Contrast this admission? N TYPE CODE TESTS RESULT OUT OF RANGE REFERENCE UNITS LAB L506.0400 0.76-1.46 ng/dL Normal T4 FREE 0.89 DIRECT Performed By: #### L501.1000, L501.1105, L501.08496, L501.9520, L506.0400 #### [facility] [address] [place], [address] VITAMIN B12 Collected: 06/25/2017 Status: F Source: [place] 11:34 AM [facility] TYPE CODE TESTS RESULT OUT OF RANGE REFERENCE UNITS LAB L503.0105 211-911 pg/mL Normal Vitamin B12 562 Performed By: #### L503.0105 #### [facility] [address] [place], [address] COPPER, SERUM OR Collected: 06/25/2017 Status: F Source: [place]AS[place] 11:34 AM [facility] TYPE CODE TESTS RESULT OUT OF RANGE REFERENCE UNITS LAB L3300.0100 72-166 ug/dL Normal COPPER 108 Result Comment: Detection Limit = 5 Performed at: [address] [id number] Contract Associate: Flip Shaw PhD, Phone: [phone] Performed at: [address] [id number] Contract Associate: Jean-Pierre Dos Santos MD, Phone: [phone] Performed By: #### L3300.0100, L3400.0700 #### [facility] (refer to report for specific site) refer to report for address and phone number CERULOPLASMIN Collected: 06/25/2017 Status: F Source: [place] 11:34 AM [facility] TYPE CODE TESTS RESULT OUT OF RANGE REFERENCE UNITS LAB L3400.0700 19.0-39.0 mg/dL Normal CERULOPLAS 1560 27.5 Performed By: #### L3300.0100, L3400.0700 #### [facility] (refer to report for specific site) refer to report for address and phone number MISCELLANEOUS LAB Collected: 06/25/2017 Status: F Source: [place] PROCED[place] 11:34 AM [facility] Order Comment: Test(s) Ordered: [id number] [facility] RT TYPE CODE TESTS RESULT OUT OF RANGE REFERENCE UNITS LAB L801.1541 Normal [facility] LAB TEST Result Comment: TEST RESULT LIMITS Manganese, Blood 16.1 ug/L 8.0 - 18.7 Verified by repeat analysis TESTING PERFORMED AT [facility]. ORIGINAL REPORT ON FILE IN LAB CONTAINS ADDITIONAL TEST SITE INFORMATION. Performed By: #### L801.1541 #### [facility] [address] [place], [address] ALLERGEN, FOOD PROFILE Collected: 06/04/2017 Status: F Source: [place] 2:50 PM [facility] TYPE CODE TESTS RESULT OUT OF RANGE REFERENCE UNITS LAB L5500.3002 Class 0 kU/L Normal MILK (COW) <0.10 LAB L5500.3004 Class 0 kU/L Normal WHEAT <0.10 LAB L5500.3008 Class 0 kU/L Normal CORN <0.10 LAB L5500.3013 Class 0 kU/L Normal PEANUT <0.10 LAB L5500.3014 Class 0 kU/L Normal SOYBEAN <0.10 LAB L5500.8100 . Normal RAST COMMENT Comment Result Comment: Levels of Specific IgE Class Description of Class ----- < 0.10 0 Negative 0.10 - 0.31 0/I Equivocal/Low 0.32 - 0.55 I Low 0.56 - 1.40 II Moderate 1.41 - 3.90 III High 3.91 - 19.00 IV Very High 19.01 - 100.00 V Very High >100.00 Very High LAB L5530.0430 Class 0 kU/L Normal CLAM <0.10 LAB L5530.0460 Class 0 kU/L Normal CODFISH <0.10 LAB L5530.0570 Class 0 kU/L Normal EGG,WHITE <0.10 LAB L5530.1430 Class 0 kU/L Normal Scallop <0.10 LAB L5530.1440 Class 0 kU/L Normal Sesame Seed <0.10 Result Comment: Performed at: [address] [id number] Contract Associate: Jean-Pierre Dos Santos MD, Phone: [phone] LAB L5530.1450 Class 0 kU/L Normal SHRIMP <0.10 LAB L5530.1650 Class 0 kU/L Normal WALNUT <0.10 Performed By: #### L5500.0410 #### [facility] (refer to report for specific site) refer to report for address and phone number ALLERGIES ALLERGIES DATE TYPE / CODE NAME / CODE REACTION SEVERITY SOURCE 05/01/2018 Drug Penicillins/U33155 Hives Unknown [place] Allergy/416 0476(RXNORM) Community 488295([facility] ED CT) Repository 05/01/2018 Drug adhesive Rash Unknown [place] Allergy/416 tape/[id number](RX Community 549318([facility] ED CT) Repository 02/18/2012 Chemical/42 ADHESIVE TAPE RASH [facility] 2711795(SNO (ROSINS) [facility]) Repository 02/18/2012 Drug PENICILLINS RASH [facility] Class/89087 [facility] 1003(SNOMED Repository CT) ENCOUNTERS ENCOUNTERS ADMIT/DISCHARGE ACCOUNT ADMITTING ENCOUNTER LOCATION SOURCE NUMBER CLASS 05/08/[id number] [facility] ing:BFHLAB Repository 05/01/2018/05/04/20 [id number] [facility] [address] ing:GE4Cvyf: Repository MM439Ioc: 1 05/01/2018 [id number] Alice Ambulatory BMSBuilding:B [place].[facility] Repository 05/01/2018 [id number] A[facility] Ambulatory BMSBuilding:B [place].[facility] Repository 05/01/2018 [id number] [facility] BMSBuilding:B [place].[facility] Repository 05/01/2018 [id number] [facility] BMSBuilding:B [place].[facility] Repository 04/28/2018/04/28/20 [id number] Ambulatory BMSBuilding:B [place] [address] MS.[facility] Repository 04/15/[id number] [facility] ing:MTLAB Repository 03/10/2018/03/10/20 [id number] Emergency [address] ing:ED Repository 02/11/[id number] [facility] ing:MTLAB Repository 01/01/2018/01/02/20 [id number] Ambulatory BMSBuilding:B [place] 18 [facility] Repository 12/24/2017 [id number] Ambulatory [facility] ing:RAD.FUTUR Repository E 12/23/2017 [id number] Ambulatory BMSBuilding:B [place].[facility] Repository 12/04/2017/12/05/19 [id number] [place] [facility] ing:PT Repository 11/18/2017/11/19/19 [id number] Ambulatory BMSBuilding:B [place] 18 [facility] Repository 11/06/2017 [id number] Ambulatory [facility] ing:HPRAD Repository 11/06/2017/11/07/19 [id number] Ambulatory BMSBuilding:B [place] [address] [facility] Repository 10/10/2017 [id number] Ambulatory BMSBuilding:B [place] [facility] Repository 10/06/2017/10/09/19 [id number] Ambulatory [facility] [address] [place] [address] Repository 09/18/2017 [id number] [facility]OPBD Repository 09/09/2017 [id number] Ambulatory [facility] ing:HPRAD Repository 09/09/2017/09/10/19 [id number] Ambulatory BMSBuilding:B [place] [address] [facility] Repository 07/14/2017 [id number] Ambulatory [facility] ing:MTLAB Repository 07/08/2017 [id number] Amb[facility] ing:MRI Repository 06/25/2017 [id number] [facility] ing:LAB Repository 06/04/2017 [id number] Amb[facility] ing:BFHLAB Repository PAYERS PAYERS ENCOUNTER GUARANTOR PAYER SUBSCRIBER SOURCE 05/08/2018 EMMA Ray [place] [id number] [address] Insurance:ANTHEMPolic LEISUREDOB: [facility] LUIS ANTONIO [facility] Number: [id number] Hospital [address]Aua: (298) [id number] Repository [phone] () Date:9737-55-08RE [address]RRQOKYMR[address]AL [place] [address]BM: 05/08/2018 Secondary NOT GIVENUNK [place] Insurance:SELF PAY [facility] Number: Effective Repository Date:2018-05-08 05/01/2018 LEX L Primary LEX L [place] [id number] [place] Insurance:ANTHEMPolic LEISUREDOB: [facility] [place] Number: [id number] [id number]: (330) [id number] Repository [phone] () Date:4970-34-34NX [address], [place] [address]WJ: 05/01/2018 Secondary NOT GIVENUNK [place] Insurance:SELF PAY [facility] Number: Effective Repository Date:2018-05-01 05/01/2018 LEX L Primary LEX L [place] [id number] [place] Insurance:ANTHEMPolic LEISUREDOB: [facility] Number: [id number] Hospital 305[address]Olt: (330) [id number] Repository [phone] () Date:2178-18-23KJ [address]QVNQY, [place] [address]FN: 05/01/2018 Secondary NOT GIVENUNK [place] Insurance:SELF PAY [facility] Number: Effective Repository Date:2018-05-01 05/01/2018 LEX L Primary LEX L [place] [id number] [place] Insurance:ANTHEMPolic LEISUREDOB: [facility] [place] Number: [id number] Hospital [address]Byy: (072) [id number] Repository [phone] () Date:7756-87-77QA [address], [place] [address]KJ: 05/01/2018 Secondary NOT GIVENUNK [place] Insurance:SELF PAY [facility] Number: Effective Repository Date:2018-05-01 05/01/2018 LEX L Primary LEX L [place] [id number] [place] Insurance:ANTHEMPolic LEISUREDOB: [facility] [place] Number: [id number] Hospital [address]Axc: ([phone]) [id number] Repository [phone] () Date:8192-24-50WO [address] [address]UG: 05/01/2018 Secondary NOT GIVENUNK [place] Insurance:SELF PAY [facility] Number: Effective Repository Date:2018-05-01 05/01/2018 LEX L Primary LEX L [place] [id number] [place] Insurance:ANTHEMPolic [place]ISUREDOB: [place]: [id number] Hospital [address]Hkj: ([phone]) [id number] Repository [phone] () Date:6006-30-54SM [address]QTJWTXY [place] [address]TZ: 05/01/2018 Secondary NOT GIVENUNK [place] Insurance:SELF PAY [facility] Number: Effective Repository Date:2018-05-01 04/28/2018 LEX L Primary LEX L [place] [id number] [place] Insurance:ANTHEMPolic [place]UREDOB: [place] Number: [id number] Hospital 4[address]Eju: (330) [id number] Repository [phone] () Date:5933-53-86UH [address] [place] [address]UO: 04/28/2018 Secondary NOT GIVENUNK [place] Insurance:SELF PAY [facility] Number: Effective Repository Date:2018-04-28 04/15/2018 LEX L Primary LEX L [place] [id number] [place] Insurance:ANTHEMPolic [place]ISUREDOB: [place] Number: [id number] Hospital [address]Svu: ([phone]) [id number] Repository [phone] () Date:3925-67-80GV [address] [address]WI: 04/15/2018 Secondary NOT GIVENUNK [place] Insurance:SELF PAY [facility] Number: Effective Repository Date:2018-04-15 03/10/2018 Lex L Primary Lex L [place] [id number] [place] Insurance:ANTHEMPolic LeisureDOB: [facility] bhumi [place] y Number: [id number] Hospital [address]Ouf: (330) [id number] Repository [phone] () Date:2497-95-62OQ [address], [place] [address]ES: 03/10/2018 Secondary NOT GIVENUNK [place] Insurance:SELF PAY [facility] Number: Effective Repository Date:2018-03-10 02/11/2018 Lex L Primary Lex L [place] [id number] [place] Insurance:ANTHEMPolic LeisureDOB: [facility] bhumi [place] y Number: [id number] Hospital [address]Hah: (851) [id number] Repository [phone] () Date:3745-48-69SH [address], [place] [address]AE: 02/11/2018 Secondary NOT GIVENUNK [place] Insurance:SELF PAY [facility] Number: Effective Repository Date:2018-02-11 01/01/2018 Lex L Primary Lex L [place] [id number] [place] Insurance:ANTHEMPolic LeisureDOB: [facility] bhumi [place] y Number: [id number] Hospital [address]14[address]Mtt: ([phone]) [id number] Repository [phone] () Date:8864-10-95PM [address]JFZZOXA, [place] [address]UX: 01/01/2018 Secondary NOT GIVENUNK [place] Insurance:SELF PAY [facility] Number: Effective Repository Date:2018-01-01 12/24/2017 Lex L Primary Lex L [place] [id number] [place] Insurance:ANTHEMPolic LeisureDOB: [facility] bhumi [place] y Number: [id number] Hospital 736[address]Qsb: ([phone]) [id number] Repository [phone] () Date:6402-32-34AU [address], [place] [address]NV: 12/24/2017 Secondary NOT GIVENUNK [place] Insurance:SELF PAY [facility] Number: Effective Repository Date:2017-12-24 12/23/2017 Lex L Primary Lex L [place] [id number] [place] Insurance:ANTHEMPolic LeisureDOB: Community bhumi [place] Number: [id number] Hospital [address]Vjj: (444) [id number] Repository [phone] () Date:6404-83-23EB [address] [address]NN: 12/23/2017 Secondary NOT GIVENUNK [place] Insurance:SELF PAY [facility] Number: Effective Repository Date:2017-11-06 12/04/2017 Lex L Primary Lex L [place] [id number] [place] Insurance:ANTHEMPolic LeisureDOB: [facility] bhumi Landin y Number: [id number] Hospital [address]Bow: (708) [id number] Repository [phone] () Date:5467-74-87KX[address] [address]JH: 12/04/2017 Secondary NOT GIVENUNK [place] Insurance:SELF PAY [facility] Number: Effective Repository Date:2017-11-06 11/18/2017 Lex L Primary Lex L [place] [id number] [place] Insurance:ANTHEMPolic LeisureDOB: [facility] bhumi [place] y Number: [id number] Hospital [address]Iui: (993) [id number] Repository [phone] () Date:7654-99-48GI[address] [address]KP: 11/18/2017 Secondary NOT GIVENUNK [place] Insurance:SELF PAY [facility] Number: Effective Repository Date:2017-11-18 11/06/2017 Lex L Primary Lex L [place] [id number] [place] Insurance:ANTHEMPolic LeisureDOB: [facility] bhumi Land[place] y Number: [id number] Hospital [address]Oxp: (298) [id number] Repository [phone] () Date:5072-21-14NJ [address] [place] [address] [place] [address]TJ: 11/06/2017 Secondary NOT GIVENUNK [place] Insurance:SELF PAY [facility] Number: Effective Repository Date:2017-11-06 11/06/2017 Lex L Primary Lex L [place] [id number] [place] Insurance:ANTHEMPolic LeisureDOB: [facility] [place] Number: [id number] Hospital [address]Tod: (330) [id number] Repository [phone] () Date:5840-98-97SO [address] [place] [address] [place] [address]RI: 11/06/2017 Secondary NOT GIVENUNK [place] Insurance:SELF PAY [facility] Number: Effective Repository Date:2017-11-06 10/10/2017 Lex L Primary Lex L [place] [id number] [place] Insurance:ANTHEMPolic LeisureDOB: [facility] [facility] Number: [id number] Hospital 18[address]Qmo: (330) [id number] Repository [phone] () Date:5588-17-04UY [address] [place] [address] [place] [address]BY: 10/10/2017 Secondary NOT GIVENUNK [place] Insurance:SELF PAY [facility] Number: Effective Repository Date:2017-10-10 09/18/2017 Lex L Primary Lex L [place] [id number] [place] Insurance:ANTHEMPolic LeisureDOB: [facility] [place] Number: [id number] Hospital [address]Skb: ([phone]) [id number] Repository [phone] () Date:9707-45-84ZF [address] [place] [address] [place] [address]QP: 09/18/2017 Secondary NOT GIVENUNK [place] Insurance:SELF PAY [facility] Number: Effective Repository Date:2017-09-08 09/09/2017 Lex L Primary Lex L [place] [id number] [place] Insurance:ANTHEMPolic LeisureDOB: [facility] [place] Number: [id number] Hospital [address]Rsy: ([phone]) [id number] Repository [phone] () Date:7400-24-37LN [address]BUPQRP, [place] [address]XK: 09/09/2017 Secondary NOT GIVENUNK [place] Insurance:SELF PAY [facility] Number: Effective Repository Date:2017-09-09 09/09/2017 Lex L Primary Lex L [place] [id number] [place] Insurance:ANTHEMPolic [place]isureDOB: [place] Number: [id number] Hospital [address]Crd: (586) [id number] Repository [phone] () Date:2014-18-56RX [address]FVKIEWZ, [place] [address]WZ: 09/09/2017 Secondary NOT GIVENUNK [place] Insurance:SELF PAY [facility] Number: Effective Repository Date:2017-09-09 07/14/2017 Lex L Primary Lex L [place] [id number] [place] Insurance:ANTHEMPolic LeisureDOB: [place]: [id number] Hospital [address]Kqo: (330) [id number] Repository [phone] () Date:6659-80-20WP [address]SXMGHMA, [place] [address]ST: 07/14/2017 Secondary NOT GIVENUNK [place] Insurance:SELF PAY [facility] Number: Effective Repository Date:2017-07-14 07/08/2017 Lex L Primary Lex L [place] [id number] [place] Insurance:ANTHEMPolic [place]isureDOB: [place] Number: [id number] Hospital [address]Cfa: (322) [id number] Repository [phone] () Date:5038-14-93KI [address], [place] [address]WK: 07/08/2017 Secondary NOT GIVENUNK [place] Insurance:SELF PAY [facility] Number: Effective Repository Date:2017-07-03 06/25/2017 Lex L Primary Lex L [place] [id number] [place] Insurance:ANTHEMPolic LeisureDOB: [facility] bhumi [place]in y Number: [id number] Hospital [address]Mnl: 330 [id number] Repository [phone] () Date:4268-38-44PP [address]IUZYB[address] [place] [address]RB: 06/25/2017 Secondary NOT GIVENUNK [place] Insurance:SELF PAY [facility] Number: Effective Repository Date:2017-06-25 06/04/2017 Lex L Primary Lex L [place] [id number] [place] Insurance:ANTHEMPolic LeisureDOB: [facility] bhumi Landin Number: [id number] Hospital [address]Njr: 330 [id number] Repository [phone] () Date:5101-19-61EX [address]WT [place] [address]HK: 06/04/2017 Secondary NOT GIVENUNK [place] Insurance:SELF PAY [facility] Number: Effective Repository Date:2017-06-04
== END ==
PROVIDERS: Family Provider Family Medicine; PCP Family Medicine; Visit Provider Family Medicine
DX: R53.83 Other fatigue (principal); E55.9 Vitamin D deficiency, unspecified; E53.8 Deficiency of other specified B group vitamins; E27.40 Unspecified adrenocortical insufficiency; E03.9 Hypothyroidism, unspecified; Z51.81 Encounter for therapeutic drug level monitoring
CPT/HCPCS: 36415; 80335; 82306; 82533; 82607; 84439; 84443; 84480

== ENCOUNTER → 2018-07-11 08:52 | Outpatient (CLI) | payer BC, SELFPAY ==
[2018-05-02 01:12] VITALS: BMI 36.0
[2018-07-11 10:38] LABS: Anion Gap 8 (5-15); BUN 25 mg/dL (7-18); BUN/Creat Ratio 23.1 RATIO (10-20); Calcium,Total 9.6 mg/dL (8.5-10.1); Chloride 104 mmol/L (98-107); Creatinine, Serum 1.08 mg/dL (0.55-1.02); EST Glomerular Filtration Rate 54 mL/min (>60); Est Glom Filt Rate - Afr Amer 66 mL/min (>60); Free T3 3.8 pg/mL (2.18-3.98); Glucose 70 mg/dL (74-106); Potassium 4.2 mmol/L (3.5-5.1); Sodium Level 141 mmol/L (136-145); T4 Free Direct 0.76 ng/dL (0.76-1.46); Thyroid Stim Hormone (TSH) 2.89 uIU/mL (0.358-3.74)
[2018-07-14 08:48] LABS: Nortriptyline Level 79 ng/mL (50-150)
== END ==
PROVIDERS: Family Provider Family Medicine; PCP Family Medicine; Referring Provider Psychiatry & Neurology Psychiatry; Visit Provider Psychiatry & Neurology Psychiatry
DX: F32.9 Major depressive disorder, single episode, unspecified (principal)
CPT/HCPCS: 36415; 80048; 80335; 84439; 84443; 84481

== ENCOUNTER → 2018-07-21 11:12 | Outpatient (CLI) | payer BC, SELFPAY ==
[2018-05-02 01:12] VITALS: BMI 36.0
--- NOTE | 2018-07-21 11:18 | US_ITS ---
STUDY: RENAL ULTRASOUND - COMPLETE REASON FOR EXAM: Female, 62 years old. Recurrent acute renal failure TECHNIQUE: Ultrasound evaluation of the kidneys was performed with real-time and static stack-scale imaging. COMPARISON: None. FINDINGS: RIGHT KIDNEY: Normal location of the right kidney, which is normal in size. The right kidney measures 9.3 cm. There is a normal cortex of the right kidney. The renal cortex measures 1.2 cm. There is no right renal mass or cyst. There are no right renal calculi. There is no right hydronephrosis. DISTAL RIGHT URETER: There is non-visualization of the distal right ureter. There is no demonstrated right ureterovesical junction calculus. There is a visualized right ureteral jet. LEFT KIDNEY: Normal location of the left kidney, which is normal in size. The left kidney measures 9.8 cm. There is a normal cortex of the left kidney. The renal cortex measures 1.7 cm. There is no left renal mass or cyst. There are no left renal calculi. There is no left hydronephrosis. DISTAL LEFT URETER: There is non-visualization of the distal left ureter. There is no demonstrated left ureterovesical junction calculus. There is a visualized left ureteral jet. BLADDER: The distended urinary bladder has a volume of 393 ml. There is a normal wall thickness of the distended urinary bladder. There is no demonstrated mass within the urinary bladder. There are no demonstrated bladder calculi. US/Kidney and Bladder IMPRESSION: Normal ultrasound of the kidneys and urinary bladder. Electronically Signed: Joselito Lovett DO at 8:25 EST Tel , Service support ,
== END ==
PROVIDERS: Family Provider Family Medicine; PCP Family Medicine; Referring Provider Family Medicine; Visit Provider Family Medicine
DX: N28.9 Disorder of kidney and ureter, unspecified (principal); N17.9 Acute kidney failure, unspecified
CPT/HCPCS: 76770

== ENCOUNTER → 2018-08-13 14:08 | Outpatient (CLI) | payer BC, SELFPAY ==
[2018-05-02 01:12] VITALS: BMI 36.0
[2018-08-13 16:34] LABS: Anion Gap 5 (5-15); BUN 24 mg/dL (7-18); BUN/Creat Ratio 26.1 RATIO (10-20); Calcium,Total 9.2 mg/dL (8.5-10.1); Chloride 102 mmol/L (98-107); Creatinine, Serum 0.92 mg/dL (0.55-1.02); EST Glomerular Filtration Rate 65 mL/min (>60); Est Glom Filt Rate - Afr Amer 79 mL/min (>60); Glucose 88 mg/dL (74-106); Potassium 3.9 mmol/L (3.5-5.1); Sodium Level 137 mmol/L (136-145)
[2018-08-13 16:49] LABS: Free T3 3.2 pg/mL (2.18-3.98); T4 Free Direct 0.81 ng/dL (0.76-1.46); Thyroid Stim Hormone (TSH) 2.15 uIU/mL (0.358-3.74)
== END ==
PROVIDERS: Family Provider Psychiatry & Neurology Psychiatry; PCP Family Medicine; Referring Provider Family Medicine; Visit Provider Psychiatry & Neurology Psychiatry
DX: N28.9 Disorder of kidney and ureter, unspecified (principal); E03.9 Hypothyroidism, unspecified
CPT/HCPCS: 36415; 80048; 84439; 84443; 84481

== ENCOUNTER → 2018-10-15 13:07 | Outpatient (CLI) | payer BC, SELFPAY ==
[2018-05-02 01:12] VITALS: BMI 36.0
== END ==
PROVIDERS: Family Provider Family Medicine; PCP Family Medicine; Visit Provider Family Medicine
DX: Z01.83 Encounter for blood typing (principal)
CPT/HCPCS: 36415; 86900

== ENCOUNTER → 2018-12-25 | Outpatient (CLI) | payer BC, SELFPAY ==
[2018-05-02 01:12] VITALS: BMI 36.0
[2018-12-29 17:16] LABS: Nortriptyline Level 54 ng/mL (50-150)
== END | disposition home or self-care (01) ==
LOC: MTLAB 14:53
PROVIDERS: Family Provider Family Medicine; PCP Family Medicine; Referring Provider Psychiatry & Neurology Psychiatry; Visit Provider Psychiatry & Neurology Psychiatry
DX: E03.9 Hypothyroidism, unspecified (principal)
CPT/HCPCS: 36415; 80335

== ENCOUNTER → 2018-12-29 15:09 | Outpatient (CLI) | payer BC, SELFPAY ==
[2018-05-02 01:12] VITALS: BMI 36.0
[2018-12-29 18:17] LABS: Free T3 3.1 pg/mL (2.18-3.98); T4 Free Direct 0.87 ng/dL (0.76-1.46); Thyroid Stim Hormone (TSH) 0.69 uIU/mL (0.358-3.74)
== END ==
PROVIDERS: Family Provider Family Medicine; PCP Family Medicine; Referring Provider Psychiatry & Neurology Psychiatry; Visit Provider Psychiatry & Neurology Psychiatry
DX: E03.9 Hypothyroidism, unspecified (principal)
CPT/HCPCS: 84439; 84443; 84481

== ENCOUNTER → 2019-01-12 14:29 | Outpatient (CLI) | payer BC, SELFPAY ==
[2018-05-02 01:12] VITALS: BMI 36.0
--- NOTE | 2019-01-12 14:31 | RAD_ITS ---
STUDY: X-RAY - RIGHT SHOULDER REASON FOR EXAM: Right shoulder pain radiating to fingers, numbness, no specific injury. TECHNIQUE: 4 view(s) of the shoulder. COMPARISON: None. FINDINGS: There is osteopenia. Normal glenohumeral articulation. Normal acromioclavicular joint. Normal acromion. Normal humeral head and visualized proximal humerus. The soft tissue structures are unremarkable. Normal visualized pulmonary apex. RAD/Shoulder min 2 Views IMPRESSION: Osteopenia. Otherwise, unremarkable x-ray examination of the right shoulder. Electronically Signed: Justin Hernandez MD at 10:45 EDT Tel , Service support ,
--- NOTE | 2019-01-12 14:31 | RAD_ITS ---
STUDY: X-RAY - CERVICAL SPINE REASON FOR EXAM: Female, 63 years old. Right shoulder and neck pain. Numbness in fingers. TECHNIQUE: 5 view(s) of the cervical spine were obtained on 6 images. COMPARISON: None FINDINGS: Generalized osteopenia. Normal anterior atlantoaxial articulation. Normal odontoid process. Normal cervical lordosis. Normal vertebral bodies and endplates. Intervertebral disc space narrowing at C5-6, C6-7 and C7-T1 with small osteophytes at C6-7. Diffuse uncovertebral and facet sclerosis. No significant anterior bony neural foraminal encroachment. The soft tissue structures are unremarkable. RAD/Cerv Spine 4 or 5 Views IMPRESSION: Osteopenia with mild cervical spondylosis as described. Electronically Signed: Aurelio Bustillo MD at 15:27 EDT , Service support ,
== END ==
PROVIDERS: Family Provider Family Medicine; PCP Family Medicine; Referring Provider Orthopaedic Surgery; Visit Provider Orthopaedic Surgery
DX: M85.88 Other specified disorders of bone density and structure, other site (principal); M47.892 Other spondylosis, cervical region; M25.511 Pain in right shoulder; M79.601 Pain in right arm; R20.0 Anesthesia of skin; R20.2 Paresthesia of skin
CPT/HCPCS: 72050; 73030

== ENCOUNTER → 2019-01-12 15:16 | Outpatient (CLI) | payer BC, SELFPAY ==
[2019-01-12 14:51] VITALS: BMI 36.0
--- NOTE | 2019-01-12 15:17 | RAD_ITS ---
STUDY: X-RAY - RIGHT HAND REASON FOR EXAM: Female, 63 years old. Increasing second through fifth finger pain. TECHNIQUE: Three view(s) of the hand. COMPARISON: None. FINDINGS: Bones: Generalized osteopenia. Joints: Osteoarthrosis of the radial carpal row, first CMC joint, MCP joints and IP joints. No erosions or periostitis. Soft tissues: The soft tissues are unremarkable. Foreign body: None RAD/Hand Min 3 Views IMPRESSION: Osteopenia with osteoarthrosis. No acute finding. Electronically Signed: Aurelio Bustillo MD at 17:59 EDT , Service support ,
== END ==
PROVIDERS: Family Provider Family Medicine; PCP Family Medicine; Referring Provider Orthopaedic Surgery; Visit Provider Orthopaedic Surgery
DX: M85.841 Other specified disorders of bone density and structure, right hand (principal); M19.041 Primary osteoarthritis, right hand
CPT/HCPCS: 73130

== ENCOUNTER → 2019-02-03 10:29 | Outpatient (CLI) | payer BC, SELFPAY ==
[2019-01-12 14:51] VITALS: BMI 36.0
[2019-02-03 12:24] LABS: Absolute Lymphocyte Count 1.37 X10^3/uL (0.83-4.51); Absolute Neutrophil Count 3.8 X10^3/uL (2.0-7.7); Basophil# 0.04 X10^3/uL; Basophil% 0.7 % (0-1); Eosinophil# 0.15 X10^3/uL; Eosinophils% 2.5 % (0-5); Hematocrit 41.9 % (37-47); Hemoglobin 13.3 g/dL (12.0-15.0); Lymphocyte # 1.37 X10^3/ul (4.0); Lymphocyte % 22.5 % (19-41); Mean Corp Hgb Conc 31.7 g/dL (32-36); Mean Corpuscular Hgb 26.9 pg (27.0-32.0); Mean Corpuscular Volume 84.6 fL (81-99); Mean Platelet Vol. 9.2 fl (6.2-12.0); Monocyte# 0.67 X10^3/uL; NRBC Flagged by Analyzer 0 % (0-5); Neutrophil # 3.82 X10^3/uL (2.7-7.7); Neutrophil % 62.8 % (47-70); Platelet Count 272 K/mm3 (150-450); RBC Distribution Width CV 14.8 % (11.6-14.6); RBC Distribution Width SD 45.2 fl (35.1-43.9); Red Blood Count 4.95 M/mm3 (4.2-5.4); White Blood Count 6.1 K/mm3 (4.4-11.0)
[2019-02-03 13:01] LABS: ALB/GLOB Ratio 1.1 RATIO (0.9-2.4); AST(SGOT) 16 U/L (15-37); Alanine Aminotransfer ALT/SGPT 29 U/L (13-56); Albumin, Serum 3.6 g/dL (3.2-5.0); Alkaline Phosphatase 77 U/L (45-117); Anion Gap 8 (5-15); BUN 19 mg/dL (7-18); BUN/Creat Ratio 17.1 RATIO (10-20); Calcium,Total 9.3 mg/dL (8.5-10.1); Chloride 106 mmol/L (98-107); Cholesterol 170 mg/dL (200); Creatinine, Serum 1.11 mg/dL (0.55-1.02); EST Glomerular Filtration Rate 53 mL/min (>60); Est Glom Filt Rate - Afr Amer 64 mL/min (>60); Globulin 3.4 g/dL (2.2-4.2); Glucose 80 mg/dL (74-106); High Density Lipoprotein 72 mg/dL; Potassium 3.9 mmol/L (3.5-5.1); Sodium Level 142 mmol/L (136-145); Triglycerides 78 mg/dL; Very Low Density Lipoprotein 16 mg/dL (5-40)
[2019-02-03 13:06] LABS: Vitamin D,25 Hydroxy 31.6 ng/mL (29.95-100.01)
== END ==
PROVIDERS: Family Provider Family Medicine; PCP Family Medicine; Referring Provider Family Medicine; Visit Provider Family Medicine
DX: E78.5 Hyperlipidemia, unspecified (principal); E55.9 Vitamin D deficiency, unspecified; R53.83 Other fatigue; E03.9 Hypothyroidism, unspecified
CPT/HCPCS: 36415; 80053; 80061; 82306; 85025

== ENCOUNTER → 2019-02-12 15:08 | Outpatient (CLI) | payer BC, SELFPAY ==
[2019-01-12 14:51] VITALS: BMI 36.0
[2019-02-12 15:12] LABS: Bacteria 0 SEEN /hpf (None Seen); Red Blood Cells-Urine 0 SEEN /hpf (0-5); White Blood Cells 0 SEEN /hpf (0-5)
[2019-02-12 17:47] LABS: Color, Urine Yellow (Yellow); Glucose, Dipstick Normal (Normal); Ketone-Dipstick Negative (Negative); Leukocyte Esterase-Dipstick 25 /ul (Negative); Nitrite-Dipstick Negative (Negative); Occult Blood-Urine Negative /ul (Negative); Protein-Dipstick Negative (Negative); Urine Bilirubin Dipstick Negative (Negative); Urine Clarity Clear (Clear); Urine Urobilinogen Normal (Normal)
[2019-02-12 18:01] LABS: Anion Gap 6 (5-15); BUN 17 mg/dL (7-18); BUN/Creat Ratio 17.5 RATIO (10-20); Calcium,Total 8.9 mg/dL (8.5-10.1); Chloride 106 mmol/L (98-107); Creatinine, Serum 0.97 mg/dL (0.55-1.02); EST Glomerular Filtration Rate 61 mL/min (>60); Est Glom Filt Rate - Afr Amer 74 mL/min (>60); Glucose 83 mg/dL (74-106); Potassium 3.8 mmol/L (3.5-5.1); Sodium Level 141 mmol/L (136-145)
[2019-02-12 18:05] LABS: Mucous, Urine 1+ /hpf (<or=2+); Squamous Epithelial Cells - UA 0-5 SEEN /hpf (5-10)
== END ==
PROVIDERS: Family Provider Family Medicine; PCP Family Medicine; Referring Provider Family Medicine; Visit Provider Family Medicine
DX: R80.9 Proteinuria, unspecified (principal); N28.9 Disorder of kidney and ureter, unspecified
CPT/HCPCS: 36415; 80048; 81001

== ENCOUNTER 2019-02-16 10:00 | Outpatient (RCR) | payer BC, SELFPAY ==
[2019-01-12 14:51] VITALS: BMI 36.0
--- NOTE | 2019-01-20 14:17 | HP.PTEVAL_ITS ---
Patient's Visit Information ACE HINES is a 63 year old F referred to Physical Therapy by Malgorzata Goodwin DO with a diagnosis of Neck Pain, Right shoulder pain, right arm/hand weakness. Date of Evaluation: 01/20/19 Physical Therapist: Phyllis Tran DPT - Visit Plan Frequency: 2x /Week Duration: 4 Weeks Plan: Modalities as needed, postural correction/strength, instruction in proper ergonomics and body mechanics- activity modifications, Bilateral UE strengthening. Avoid peripheralization of symptoms- consider mechanical traction if good response to manual traction. - Subjective Findings: Patient reports problems with her right shoulder- at the end of November- has horses and when she noticed when both hands overhead she was having shoulder pains. Last Friday she had an apt with Dr. Goodwin due to her shoulder and hand bothering her. Could barely use her arm and it was weak. Dr. Olguin gave her an injection and the pain has subsided- but does still notice weakness and discomfort. The right hand had trauma in 2011- the back side of the hand and into the first knuckle she has achy/throbbing pains. Thinks its probably OA. The shoulder pain comes and goes- feels like the anterior shoulder and into the bicep/deltoid. Best: 0/10 Worst:5/10. Agg: holding horse ropes, lifting, movement. Eases: rest calms it down due to her not using the shoulder. Describes the shoulder pain as half way between sharp and throbbing. Does feel like sometimes she has been jabbed by a needle in the inside of the elbow. Does not experience neck pain- did at one point have neck issues and left shoulder as sociated with that. Had x-rays of neck, shoulder and hand. Blanco like it was consistent had flare the day she saw Dr. Olguin and has been getting worse. PMHx/Meds: no changes since she saw . Right hand dominate. 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 Sleep: not disturbed- she is a side sleeper. Does report increased N/T randomly. No increase in MEI but mild increase in blurred vision and dizziness. - Objective Posture: FH, RS, increased kyphosis- can correct with verbal and tactile cues but does not remain. Gait: no deviation noted. Palpation: tender along upper trap from the base of the skull to the distal tip of the scapula, anterior shoulder and down the deltoid to the elbow. ROM: WFL in all planes of the cervical spine and right UE. Strength: Scap: fair minus, Shoulder: 4-/5, Elbow: 4/5, Wrist: 4-/5, Machinist Set Up: Left: 75 lbs avg of 3 trials Right: 80 lbs avg of 3 trials. Sensation/Reflex: WNL. Special Test: shoulder impingment: negative, Empty can: negative, cervical distraction: no change in s/s - Goals Goal 1:: Patient will be I with HEP and progression Goal Time Frame: 4-6 Weeks Goal 2:: Patient will 4+/5 strength in bilateral UE Goal Time Frame: 4-6 Weeks Goal 3:: Patient will maintain proper posture t/o tx session to demo increased scap s/s. Goal Time Frame: 4-6 Weeks Goal 4:: Patient will report 0/10 and no neural s/s for 1 week. Goal Time Frame: 4-6 Weeks - Rehabilitation Potential Physical Therapy Diagnosis: Patient presents with hypomobility- she has decreased strength and muscular endurance leading to increased pain with ADL's and neural symptoms. Rehabilitation Potential: Good - Anticipated Interventions Patient/Client Instruction: Educate patient on: Benefits of Fitness Program Therapeutic Exercise to Include: Strength training, Endurance training, Coordination, Body mechanics, Postural training, Passive ROM, Active ROM, Scapular Strength/Stabilization For the Purpose of:: To improve muscle performance and motor function TENS: Yes Cryotherapy (ice pack, ice massage): Yes Thermo therapy (hot pack): Yes Ultrasound (thermal/non thermal): Yes Thank you for the opportunity to evaluate your patient. For Medicare and Medicare HMO plans, please review the plan of care and approve it. It will need to be FAXED BACK to us at [phone] for Medicare purposes. For Medicare only, by signing this I certify the plan of care. Please let me know if there are questions or concerns regarding this plan of care. Physician Signature: Date:
--- NOTE | 2019-02-16 10:29 | HP.PTREVAL ---
Malgorzata Goodwin, DO, It has been my pleasure to treat ACE HINES over the last 9 visits for Neck Pain, Right shoulder pain, right arm/hand weakness. Please see the progress note below for an update on the physical therapy plan of care! Subjective: She feels like she is doing great- her arm is tolerating leading horses, lifting hay. No N/T or pain in the arm. She has been painfree for about a week. Objective/Function: Posture: good in hard back chair throughout treatment session. Gait: no deviation noted. Palpation: not tender to touch but does have trigger points along medial scapular border ROM: WFL in all planes of the cervical spine and right UE. Strength: Scap: fair plus, Shoulder: 4/5, Elbow: 5/5, Wrist: 4+/5, Sensation/Reflex: WNL. Special Test: shoulder impingment: negative, Empty can: negative, cervical distraction: no change in s/s Plan Plan: Discharge to [facility]P- plans to explore the possibility of a gym membership. Goals Goal 1:: Patient will be I with HEP and progression Goal Time Frame: 4-6 Weeks Goal Progress: Goal Met Goal 2:: Patient will 4+/5 strength in bilateral UE Goal Time Frame: 4-6 Weeks Goal Progress: Progressing Goal 3:: Patient will maintain proper posture t/o tx session to demo increased scap s/s. Goal Time Frame: 4-6 Weeks Goal Progress: Goal Met Goal 4:: Patient will report 0/10 and no neural s/s for 1 week. Goal Time Frame: 4-6 Weeks Goal Progress: Goal Met Anticipated Interventions Patient/Client Instruction: Educate patient on: Benefits of Fitness Program Therapeutic Exercise to Include: Strength training, Endurance training, Coordination, Body mechanics, Postural training, Passive ROM, Active ROM, Scapular Strength/Stabilization For the Purpose of:: To improve muscle performance and motor function TENS: Yes Cryotherapy (ice pack, ice massage): Yes Thermo therapy (hot pack): Yes Ultrasound (thermal/non thermal): Yes Please do not hesitate to contact me at [phone] by phone or if you have questions or concerns regarding this new plan of care! Sincerely, Phyllis Tran DPT
--- NOTE | 2019-03-19 08:19 | HP.PTDCSUM ---
HP - PT D/C Summary It has been my pleasure to treat ACE HINES under orders from Malgorzata Goodwin DO, for the diagnosis of Neck Pain, Right shoulder pain, right arm/hand weakness for a total of 9 visit(s). Discharge Date: Please see the following information for a summary of their discharge status. - Subjective Subjective: She feels like she is doing great- her arm is tolerating leading horses, lifting hay. No N/T or pain in the arm. She has been painfree for about a week. - Pain right UE Pain Intensity (Out of 10): 1 - Overall Improvement % Improvement: 100 - Objective Objective/Function: Posture: good in hard back chair throughout treatment session. Gait: no deviation noted. Palpation: not tender to touch but does have trigger points along medial scapular border ROM: WFL in all planes of the cervical spine and right UE. Strength: Scap: fair plus, Shoulder: 4/5, Elbow: 5/5, Wrist: 4+/5, Sensation/Reflex: WNL. Special Test: shoulder impingment: negative, Empty can: negative, cervical distraction: no change in s/s - Goals Goal 1:: Patient will be I with HEP and progression Goal Progress: Goal Met Goal 2:: Patient will 4+/5 strength in bilateral UE Goal Progress: Progressing Goal 3:: Patient will maintain proper posture t/o tx session to demo increased scap s/s. Goal Progress: Goal Met Goal 4:: Patient will report 0/10 and no neural s/s for 1 week. Goal Progress: Goal Met - Plan Plan: Discharge to HEP- plans to explore the possibility of a gym membership. - D/C Information If there are questions or concerns regarding this patient's physical therapy, please feel free to call me at [phone]. Thank you for the referral of this patient. Sincerely, Phyllis Tran DPT
== END 2019-02-16 19:00 | disposition home or self-care (01) ==
LOC: PT 10:00
PROVIDERS: Family Provider Family Medicine; PCP Family Medicine; Referring Provider Orthopaedic Surgery; Visit Provider Orthopaedic Surgery
DX: R29.898 Other symptoms and signs involving the musculoskeletal system (principal); M25.551 Pain in right hip; M54.2 Cervicalgia
CPT/HCPCS: 97035; 97110; 97140; 97161; 97164

== ENCOUNTER 2019-05-07 14:19 | Emergency (ER) | payer BC, SELFPAY ==
[2019-02-23 12:43] VITALS: BMI 36.0
[2019-05-07 14:20] VITALS: BP 149/76; PULSE 101; RESP 18; TEMP 36.8; O2SAT 98; BMI 35.4
[2019-05-07 14:26] VITALS: BP 149/76; PULSE 101; RESP 18; TEMP 36.8; O2SAT 98
[2019-05-07] MEDS: Ondansetron 4 MG/2 ML Vial IV (15:34)
[2019-05-07 15:35] VITALS: BP 128/71; PULSE 83; RESP 15; TEMP 37.3; O2SAT 99
[2019-05-07] MEDS: 0.9% Normal Saline 1,000 ML 1000 ML IV (15:35)
--- NOTE | 2019-05-07 15:41 | ED.DCSUM_ITS ---
- ER Visit Summary Date of Service: 05/07/19 Chief Complaint: Vomiting diarrhea History of Present Illness: The patient is a 63 F who tells me that she has been dehydrated off and on for a year. She cannot tell me why states she has a hard time taking water. Fortunately she is vague and most of her history. She tells me she has a GI doctor in [place] but cannot tell me exactly why. She sees Dr. Navarro for depression and Dr. Chandler for other issues that she cannot tell me other than high cholesterol and prediabetes. She notes a burning left upper quadrant pain. She denies any bad food exposure. Other people who have ate with her the past couple days or not ill. No fevers but she does note chills. Physical Examination: Afebrile vital signs stable Gen: Well-nourished well-developed Head: Normocephalic atraumatic Eyes: Perrl EOMI ENT: TMs clear no rhinorrhea moist mucous membranes Neck: Supple no lymphadenopathy no JVD nontender CVS: Regular rate rhythm no murmurs normal S1-S2 Respiratory: No distress clear to auscultation bilaterally chest nontender Abdomen: Soft nontender nondistended normal bowel sounds no masses Back: Nontender Extremity: Nontender no edema Skin: Normal color no rash Neuro: alert orientated ?3 CN II-XII intact normal strength sensation reflexes gait cerebellar Psych: Normal affect normal mood Test Results: CBC, BMP, liver lipase negative. Creatinine 1.05 with a BUN of 17. White count 8 point Emergency Department Course and Treatment: Patient received IV fluids, Zofran, and Imodium. Orthostatics negative. She had no vomiting or diarrhea here. Tolerated GI cocktail. Patient will be discharged home with prescription for Zofran instructions for Imodium and oral hydration return if worsening or concerns Impression: 1. Acute gastroenteritis This note was generated with [employer] dictation software. It may contain incorrect words, spelling, and punctuation that were not noted in review of the chart prior to signing ED Disposition - Plan for ED Patient: Disposition: Home or Assisted Living Instructions: GASTROENTERITIS, Viral (6y-Adult) Prescriptions: Ondansetron [Zofran Odt] 4 mg PO Q8H PRN PRN #20 tab PRN Reason: Nausea Prescription Printed Referrals: Sosa Chandler DO [Primary Care Provider] - As Needed Additional Instructions: Imodium as needed for diarrhea Symptoms may persist please do your best to orally hydrate.
[2019-05-07] MEDS: Loperamide 2 MG Capsule 4 MG PO (15:49)
[2019-05-07 15:53] LABS: Absolute Lymphocyte Count 0.63 X10^3/uL (0.83-4.51); Absolute Neutrophil Count 7.6 X10^3/uL (2.0-7.7); Basophil# 0.02 X10^3/uL; Basophil% 0.2 % (0-1); Eosinophil# 0.07 X10^3/uL; Eosinophils% 0.8 % (0-5); Hemoglobin 14.2 g/dL (12.0-15.0); Lymphocyte # 0.63 X10^3/ul (4.0); Lymphocyte % 7.1 % (19-41); Mean Corp Hgb Conc 32.3 g/dL (32-36); Mean Corpuscular Hgb 27.5 pg (27.0-32.0); Mean Corpuscular Volume 85.1 fL (81-99); Mean Platelet Vol. 9.3 fl (6.2-12.0); Monocyte% 5.6 % (0-10); NRBC Flagged by Analyzer 0 % (0-5); Neutrophil # 7.62 X10^3/uL (2.7-7.7); Neutrophil % 85.8 % (47-70); Platelet Count 273 K/mm3 (150-450); RBC Distribution Width CV 13.6 % (11.6-14.6); RBC Distribution Width SD 42.5 fl (35.1-43.9); Red Blood Count 5.17 M/mm3 (4.2-5.4); White Blood Count 8.9 K/mm3 (4.4-11.0)
[2019-05-07] MEDS: Mag Hydrox/Al Hydrox/Simeth 30 ML UDC PO (15:57)
[2019-05-07 16:05] VITALS: BP 144/71; BP 149/81; BP 151/88; PULSE 85; PULSE 90; PULSE 93; RESP 15; TEMP 37.3; O2SAT 98
[2019-05-07 16:06] LABS: AST(SGOT) 26 U/L (15-37); Alanine Aminotransfer ALT/SGPT 34 U/L (13-56); Albumin, Serum 3.9 g/dL (3.2-5.0); Alkaline Phosphatase 84 U/L (45-117); Anion Gap 8 (5-15); BUN 17 mg/dL (7-18); BUN/Creat Ratio 16.2 RATIO (10-20); Bilirubin, Direct 0.16 mg/dL (0.00-0.30); Calcium,Total 9.5 mg/dL (8.5-10.1); Chloride 106 mmol/L (98-107); Creatinine, Serum 1.05 mg/dL (0.55-1.02); EST Glomerular Filtration Rate 56 mL/min (>60); Est Glom Filt Rate - Afr Amer 68 mL/min (>60); Estimated Creatinine Clearance 44.78 ml/min; Globulin 3.7 g/dL (2.2-4.2); Glucose 104 mg/dL (74-106); Lipase 115 U/L (73-393); Potassium 4.1 mmol/L (3.5-5.1); Protein, Total 7.6 g/dL (6.4-8.2); Sodium Level 140 mmol/L (136-145)
[2019-05-07 16:20] VITALS: BP 158/66; PULSE 87; RESP 18; O2SAT 99
== END 2019-05-07 16:22 | disposition home or self-care (01) ==
PROVIDERS: Emergency Provider Emergency Medicine; Family Provider Family Medicine; PCP Family Medicine
DX: K52.9 Noninfective gastroenteritis and colitis, unspecified (principal); F32.9 Major depressive disorder, single episode, unspecified; E78.00 Pure hypercholesterolemia, unspecified; R73.03 Prediabetes; K21.9 Gastro-esophageal reflux disease without esophagitis; E66.9 Obesity, unspecified; Z79.899 Other long term (current) drug therapy
CPT/HCPCS: 80048; 80076; 83690; 85025; 96361; 96374; 99285; J7030; A4216; J2405

== ENCOUNTER → 2019-07-30 08:21 | Outpatient (CLI) | payer BC, SELFPAY ==
[2019-07-30 10:18] LABS: Absolute Lymphocyte Count 1.53 X10^3/uL (0.83-4.51); Absolute Neutrophil Count 3.3 X10^3/uL (2.0-7.7); Basophil# 0.03 X10^3/uL; Basophil% 0.5 % (0-1); Eosinophil# 0.15 X10^3/uL; Eosinophils% 2.7 % (0-5); Hematocrit 40.1 % (37-47); Hemoglobin 12.5 g/dL (12.0-15.0); Lymphocyte # 1.53 X10^3/ul (4.0); Lymphocyte % 27.4 % (19-41); Mean Corp Hgb Conc 31.2 g/dL (32-36); Mean Corpuscular Hgb 25.9 pg (27.0-32.0); Mean Corpuscular Volume 83.2 fL (81-99); Mean Platelet Vol. 9.7 fl (6.2-12.0); Monocyte# 0.57 X10^3/uL; Monocyte% 10.2 % (0-10); NRBC Flagged by Analyzer 0 % (0-5); Neutrophil # 3.29 X10^3/uL (2.7-7.7); Neutrophil % 58.8 % (47-70); Platelet Count 285 K/mm3 (150-450); RBC Distribution Width CV 14.8 % (11.6-14.6); Red Blood Count 4.82 M/mm3 (4.2-5.4); White Blood Count 5.6 K/mm3 (4.4-11.0)
[2019-07-30 10:49] LABS: AST(SGOT) 24 U/L (15-37); Alanine Aminotransfer ALT/SGPT 40 U/L (13-56); Albumin, Serum 3.6 g/dL (3.2-5.0); Alkaline Phosphatase 85 U/L (45-117); Anion Gap 2 (5-15); BUN 18 mg/dL (7-18); BUN/Creat Ratio 16.2 RATIO (10-20); Calcium,Total 9.2 mg/dL (8.5-10.1); Chloride 108 mmol/L (98-107); Cholesterol 147 mg/dL (200); Creatinine, Serum 1.11 mg/dL (0.55-1.02); EST Glomerular Filtration Rate 53 mL/min (>60); Est Glom Filt Rate - Afr Amer 64 mL/min (>60); Free T3 3.1 pg/mL (2.18-3.98); Globulin 3.5 g/dL (2.2-4.2); Glucose 103 mg/dL (74-106); High Density Lipoprotein 56 mg/dL; Potassium 3.7 mmol/L (3.5-5.1); Protein, Total 7.1 g/dL (6.4-8.2); Sodium Level 140 mmol/L (136-145); T4 Free Direct 0.93 ng/dL (0.76-1.46); Triglycerides 89 mg/dL; Very Low Density Lipoprotein 18 mg/dL (5-40)
[2019-08-03 09:43] LABS: Vitamin B12 627 pg/mL (211-911); Vitamin D,25 Hydroxy 52.6 ng/mL
== END ==
PROVIDERS: PCP Family Medicine; Referring Provider Family Medicine; Visit Provider Family Medicine
DX: E03.9 Hypothyroidism, unspecified (principal); M85.80 Other specified disorders of bone density and structure, unspecified site; E78.5 Hyperlipidemia, unspecified; E53.8 Deficiency of other specified B group vitamins; E55.9 Vitamin D deficiency, unspecified; Z51.81 Encounter for therapeutic drug level monitoring
CPT/HCPCS: 36415; 80053; 80061; 82306; 82607; 84439; 84443; 84481; 85025

== ENCOUNTER → 2019-08-19 13:27 | Outpatient (CLI) | payer BC, SELFPAY | PROVIDERS: PCP Family Medicine; Visit Provider Family Medicine | DX: J06.9 Acute upper respiratory infection, unspecified (principal) | CPT/HCPCS: 87633 ==

== ENCOUNTER → 2019-10-12 14:31 | Outpatient (CLI) | payer BC, SELFPAY ==
--- NOTE | 2019-10-12 14:34 | BI_ITS ---
MAMMOGRAPHY - BILATERAL SCREENING REASON FOR EXAM: Female, 63 years old. Routine annual screening examination. PERTINENT HISTORY: Non-contributory. TECHNIQUE: Digital bilateral breast flakito (3D mammographic acquisition) in the CC and MLO projections. 2-D mediolateral oblique (MLO) and craniocaudad (CC) views of both breasts were obtained. CAD: Full Field Digital Mammography with Computer Added Detection was performed. COMPARISON: Comparison is made with prior study dated May 13, 2017 and April 12, 2015. FINDINGS: Breast Composition: There are scattered areas of fibroglandular density. There are no dominant masses or suspicious calcifications. No other significant abnormalities are identified. There has been no significant change since the prior study. BI/SCREEN MAMM (CAD) W/FLAKITO BILAT IMPRESSION: Stable bilateral screening mammogram. Yearly follow-up mammogram recommended. (A) ASSESSMENT CATEGORY: BIRADS Category 1: Negative. A letter regarding these results will be sent to the patient by the facility within 30 days. Approximately 10% of breast cancers are not detected by mammography. A normal mammogram should not delay biopsy of a clinically suspicious abnormality. [id number] Electronically Signed: Zach Muñoz, at 15:59 EDT , Service support ,
--- NOTE | 2019-10-12 14:36 | BD_ITS ---
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 COMPARISON: Comparison is made with prior examination dated September 18, 2017. FINDINGS: Lumbar Spine (L1-L4): g/cm2 (1.061) / T-score (-1.0) / Z-score (0.6) Findings are suggestive of normal bone density with a low fracture risk. Left Femur Total: g/cm2 (0.825) / T-score (-1.4) / Z-score (-0.3) Left Femoral Neck: g/cm2 (0.786) / T-score (-1.8) / Z-score (-0.4) Right Femur Total: g/cm2 (0.884) / T-score (-1.0) / Z-score (0.2) Right Femoral Neck: g/cm2 (0.806) / T-score (-1.7) / Z-score (-0.2) The T-Scores on the most recent prior examination were: Lumbar Spine (L1-L4): There has been improvement of bone density since the previous examination. Left Femur Total: which represents a worsening of 3.3%. Right Femur Total: which represents an improvement of 4%. BD/Dexa Bone Density Study IMPRESSION: The patient is considered osteopenic as outlined below according to World [place] Organization (WHO) criteria with a moderate fracture risk. There has been improvement of bone density since the previous examination. Reference Information: The T-score is the number of standard deviations above or below the standard which is normal for young adults at their peak bone mineral density. The World Health Organization (WHO) interprets the T-scores as follows: Above -1 Normal bone density Between -1 and -2.5 Osteopenia Equal to / or below -2.5 Osteoporosis As a practical clinical guideline, osteopenia may be graded as follows: Mild -1 through -1.5 Moderate -1.6 through -2.0 Severe -2.1 through -2.4 The Z-score is the number of standard deviations above or below age-matched controls. A Z-score of less than -1.5 would be considered abnormal. References: 1. NIH Osteoporosis and Related Bone Diseases http://www.osteo.org 2. International Society for Clinical Densitometry http://www.iscd.org 3. National Osteoporosis Foundation http://www.nof.org Electronically Signed: Zach Muñoz, at 15:45 EDT , Service support ,
== END ==
PROVIDERS: PCP Family Medicine; Visit Provider Family Medicine
DX: Z12.31 Encounter for screening mammogram for malignant neoplasm of breast (principal); M85.80 Other specified disorders of bone density and structure, unspecified site
CPT/HCPCS: 77063; 77067; 77080

== ENCOUNTER → 2019-11-02 09:32 | Outpatient (CLI) | payer BC, SELFPAY ==
[2019-11-02 08:33] VITALS: BMI 35.4
[2019-11-02 12:48] LABS: Free T3 4.2 pg/mL (2.18-3.98); T4 Free Direct 0.96 ng/dL (0.76-1.46); Thyroid Stim Hormone (TSH) 0.17 uIU/mL (0.358-3.74)
== END ==
PROVIDERS: PCP Family Medicine; Referring Provider Family Medicine; Visit Provider Family Medicine
DX: E03.9 Hypothyroidism, unspecified (principal); E53.8 Deficiency of other specified B group vitamins
CPT/HCPCS: 36415; 84439; 84443; 84481

== ENCOUNTER → 2019-12-06 08:48 | Outpatient (CLI) | payer BC, SELFPAY ==
[2019-11-04 13:58] VITALS: BMI 35.4
--- NOTE | 2019-12-06 08:54 | NM_ITS ---
CLINICAL: 64-year-old female with reported history of postprandial abdominal pain and bloating. SEMI-SOLID PHASE 99m Tc SULFUR COLLOID GASTRIC EMPTYING STUDY COMPARISON: None available FINDINGS: The patient was administered 1.0 mCi of 99m Tc sulfur colloid mixed with oatmeal and consumed per os. Image acquisitions in the anterior-posterior projections for a total of 60 minutes. There is prompt visualization of the stomach. There is no gastroesophageal reflux identified. The T1/2 linear fit was calculated to be 39.69 minutes, (Normal: 12-56 minutes). NM/Gastric Emptying Study IMPRESSION: 1. NORMAL 99m Tc sulfur colloid semi-solid phase (oatmeal) gastric emptying imaging examination. A. There is normal and preserved semi-solid phase gastric emptying compared to normal controls. (Mohan et al, J Nucl Med Tech 38: 186, 2010). Electronically Signed: Aashish Niño DO at 21:42 EDT Tel , Service support ,
== END ==
PROVIDERS: PCP Family Medicine
DX: R11.2 Nausea with vomiting, unspecified (principal)
CPT/HCPCS: 78264; A9541

== ENCOUNTER → 2020-01-19 09:04 | Outpatient (CLI) | payer BC, SELFPAY ==
[2019-11-04 13:58] VITALS: BMI 35.4
[2020-01-19 11:08] LABS: Free T3 2.9 pg/mL (2.18-3.98); T4 Free Direct 0.95 ng/dL (0.76-1.46); Thyroid Stim Hormone (TSH) 1.01 uIU/mL (0.358-3.74)
[2020-01-21 21:42] LABS: Nortriptyline Level 54 ng/mL (50-150)
== END ==
PROVIDERS: PCP Family Medicine; Referring Provider Psychiatry & Neurology Psychiatry; Visit Provider Psychiatry & Neurology Psychiatry
DX: E03.9 Hypothyroidism, unspecified (principal); Z79.899 Other long term (current) drug therapy
CPT/HCPCS: 36415; 80335; 84439; 84443; 84481

== ENCOUNTER → 2020-02-08 17:57 | Outpatient (CLI) | payer BC, SELFPAY ==
[2020-02-08 13:17] VITALS: BMI 35.4
[2020-02-08 20:16] LABS: Synovial Fld Mononuclear WBC % 95.9 %; Synovial Fld Polynuclear WBC # 0.004 10^3/uL; Synovial Fld Polynuclear WBC % 4.1 %
[2020-02-08 21:29] LABS: AUTO B FLUID DILUENT BKGD CT WBC <0.1 RBC <0.01 (W<.1,R<.01); RBC /Synovial Fluid 95 /mm3 (0); Source / Synovial Fluid LEFT KNEE; Source- Body Fluid SYNOVIAL
[2020-02-08 21:30] LABS: Appearance /Synovial Fluid Sl hazy (CLEAR); Color / Synovial Fluid Yellow (Pale Yellow); Viscosity / Synovial Fluid Mod. Viscous (HIGH)
[2020-02-08 22:36] LABS: Lymph 7 %; Monocyte /Synovial Fluid 35 %; Neutrophil 3 % (0-25)
[2020-02-08 22:37] LABS: Body Fluid QC Type(s) BF1Q,BF2Q; CRYSTALS, BODY FLUID Other, see comment; Other Cell /Synovial Fluid 55 %
[2020-02-09 14:00] LABS: Pathologist Comment Reviewed; Pathologist Review Reviewed
[2020-02-10 14:30] LABS: GLUCOSE, SYNOVIAL FLUID 96 mg/dL (.)
[2020-02-10 14:36] LABS: PROTEIN, SYNOVIAL FLUID 3.8 g/dL (.)
== END ==
PROVIDERS: PCP Family Medicine; Visit Provider Orthopaedic Surgery
DX: M25.462 Effusion, left knee (principal)
CPT/HCPCS: 82945; 84157; 87070; 87075; 87205; 89050; 89051; 89060

== ENCOUNTER → 2020-04-19 | Outpatient (CLI) | payer BC, SELFPAY ==
[2020-02-08 13:17] VITALS: BMI 35.4
--- NOTE | 2020-04-19 13:20 | MRI_ITS ---
STUDY: MRI LEFT KNEE REASON FOR EXAM: Female, 64 years old. LEFT KNEE INJURY, increasing pain, unstable, prev acl repair TECHNIQUE: Standardized fat and water weighted pulse sequences were obtained in all 3 orthogonal planes. COMPARISON: Left knee x-ray dated February 08, 2020 FINDINGS: Mild to moderate marrow edema is present in the central and posterior aspect of the lateral femoral condyle, compatible with an acute contusion. No fracture line is seen. Normal medial meniscus. Normal hyaline cartilage of the medial femorotibial compartment. Normal medial femoral condyle and tibial plateau. Normal medial collateral ligamentous complex (MCL). Normal distal semimembranosus, gracilis and semitendinosus tendons. There is attrition of the free edge of the lateral meniscus without a demonstrated meniscal tear. There is diffuse, greater than 50% thickness articular cartilage loss of the lateral femorotibial compartment. Normal lateral tibial plateau. Normal proximal tibiofibular articulation. Normal lateral collateral (fibular) ligament. Normal popliteus tendon. Normal biceps femoris tendon. Normal anterior cruciate ligament (ACL). Normal posterior cruciate ligament (PCL). Normal congruent patellofemoral articulation. There is diffuse, less than 50% thickness articular cartilage loss of the patellofemoral compartment. Normal medial and lateral patellar retinaculum. Normal quadriceps tendon. Normal patellar tendon. Normal Hoffa''s fat pad. A small joint effusion is present. Mild subcutaneous edema is present in the anterior aspect of the knee joint. MRI/Lower Ext Joint Only (Routine) IMPRESSION: 1. Mild to moderate marrow edema is present in the central and posterior aspect of the lateral femoral condyle, compatible with an acute contusion. No fracture line is seen. Electronically Signed: Eduardo Meng MD at 21:48 EST , Service support ,
== END | disposition home or self-care (01) ==
PROVIDERS: PCP Family Medicine; Referring Provider Orthopaedic Surgery; Visit Provider Orthopaedic Surgery
DX: S83.242A Other tear of medial meniscus, current injury, left knee, initial encounter (principal)
CPT/HCPCS: 73721

== ENCOUNTER → 2020-08-01 08:44 | Outpatient (CLI) | payer OTHER, SELFPAY ==
[2020-08-01 10:01] LABS: Absolute Lymphocyte Count 1.35 X10^3/uL (0.83-4.51); Basophil# 0.03 X10^3/uL; Basophil% 0.6 % (0-1); Eosinophil# 0.11 X10^3/uL; Eosinophils% 2.2 % (0-5); Hematocrit 42.8 % (37-47); Hemoglobin 13.2 g/dL (12.0-15.0); Lymphocyte # 1.35 X10^3/ul (4.0); Lymphocyte % 27.3 % (19-41); Mean Corp Hgb Conc 30.8 g/dL (32-36); Mean Corpuscular Hgb 26.2 pg (27.0-32.0); Mean Corpuscular Volume 84.9 fL (81-99); Mean Platelet Vol. 9.3 fl (6.2-12.0); Monocyte% 10.1 % (0-10); NRBC Flagged by Analyzer 0 % (0-5); Neutrophil # 2.95 X10^3/uL (2.7-7.7); Neutrophil % 59.6 % (47-70); Platelet Count 293 K/mm3 (150-450); RBC Distribution Width CV 13.8 % (11.6-14.6); Red Blood Count 5.04 M/mm3 (4.2-5.4)
[2020-08-01 10:35] LABS: Vitamin B12 425 pg/mL (211-911); Vitamin D,25 Hydroxy 60.5 ng/mL
[2020-08-01 10:58] LABS: ALB/GLOB Ratio 1.1 RATIO (0.9-2.4); AST(SGOT) 18 U/L (15-37); Alanine Aminotransfer ALT/SGPT 22 U/L (13-56); Albumin, Serum 3.6 g/dL (3.2-5.0); Alkaline Phosphatase 85 U/L (45-117); Anion Gap 4 (5-15); BUN 19 mg/dL (7-18); BUN/Creat Ratio 19.9 RATIO (10-20); Calcium,Total 9.4 mg/dL (8.5-10.1); Chloride 106 mmol/L (98-107); Cholesterol 169 mg/dL (200); Creatinine, Serum 0.95 mg/dL (0.55-1.02); EST Glomerular Filtration Rate 62 mL/min (>60); Est Glom Filt Rate - Afr Amer 76 mL/min (>60); Free T3 3.1 pg/mL (2.18-3.98); Globulin 3.3 g/dL (2.2-4.2); Glucose 90 mg/dL (74-106); High Density Lipoprotein 58 mg/dL; Potassium 4.3 mmol/L (3.5-5.1); Protein, Total 6.9 g/dL (6.4-8.2); Sodium Level 139 mmol/L (136-145); T4 Free Direct 0.92 ng/dL (0.76-1.46); Thyroid Stim Hormone (TSH) 1.05 uIU/mL (0.358-3.74); Triglycerides 100 mg/dL; Very Low Density Lipoprotein 20 mg/dL (5-40)
== END ==
PROVIDERS: PCP Family Medicine; Referring Provider Family Medicine; Visit Provider Family Medicine
DX: E03.9 Hypothyroidism, unspecified (principal); M85.80 Other specified disorders of bone density and structure, unspecified site; E78.5 Hyperlipidemia, unspecified; E53.8 Deficiency of other specified B group vitamins; Z51.81 Encounter for therapeutic drug level monitoring
CPT/HCPCS: 36415; 80053; 80061; 82306; 82607; 84439; 84443; 84481; 85025

== ENCOUNTER 2020-09-01 02:44 | Emergency (ER) | payer OTHER, SELFPAY ==
[2020-09-01 02:45] VITALS: BP 129/57; PULSE 101; RESP 18; TEMP 36.5; O2SAT 98; BMI 34.1
[2020-09-01 03:29] LABS: Absolute Lymphocyte Count 0.64 X10^3/uL (0.83-4.51); Absolute Neutrophil Count 7.4 X10^3/uL (2.0-7.7); Basophil# 0.02 X10^3/uL; Basophil% 0.2 % (0-1); Eosinophil# 0.03 X10^3/uL; Eosinophils% 0.4 % (0-5); Hemoglobin 14.6 g/dL (12.0-15.0); Lymphocyte # 0.64 X10^3/ul (4.0); Lymphocyte % 7.5 % (19-41); Mean Corp Hgb Conc 32.4 g/dL (32-36); Mean Corpuscular Hgb 27.1 pg (27.0-32.0); Mean Corpuscular Volume 83.5 fL (81-99); Mean Platelet Vol. 9.6 fl (6.2-12.0); Monocyte# 0.38 X10^3/uL; Monocyte% 4.5 % (0-10); NRBC Flagged by Analyzer 0 % (0-5); Neutrophil # 7.39 X10^3/uL (2.7-7.7); Neutrophil % 86.9 % (47-70); Platelet Count 316 K/mm3 (150-450); RBC Distribution Width CV 14.1 % (11.6-14.6); RBC Distribution Width SD 42.9 fl (35.1-43.9); Red Blood Count 5.39 M/mm3 (4.2-5.4); White Blood Count 8.5 K/mm3 (4.4-11.0)
[2020-09-01] MEDS: 0.9% Normal Saline 1,000 ML 999 ML IV (03:37)
[2020-09-01] MEDS: Ondansetron 4 MG/2 ML Vial IV (03:38)
--- NOTE | 2020-09-01 03:40 | ED.DCSUM_ITS ---
History of Present Illness Chief Complaint: General Illness Detail of Chief Complaint: Nausea, vomiting, diarrhea Informant: Patient Onset: Yesterday Context: Gradual Onset Current Severity: Mild Maximum Severity: Moderate Narrative: Patient presents with nausea, vomiting, and diarrhea that started around 15 hours prior to arrival. Patient states in the last couple hours has been able to take small sips. Patient complains of abdominal pain, headache, and feeling lightheaded. She states she is had problems with dehydration in the past and is concerned that she may be getting too dehydrated again. Patient denies fever or chills. - Past Medical History (1) Hypothyroidism Status: Chronic (2) HLD (hyperlipidemia) Status: Chronic (3) Prediabetes Status: Chronic (4) GERD (gastroesophageal reflux disease) Status: Chronic (5) History of depression Status: Chronic (6) Benign hypertension Status: Chronic Past Medical History - Allergies and Home Meds Allergies/Adverse Reactions: Allergies adhesive tape Allergy (Verified 09/01/20 02:48) Rash Penicillins Allergy (Verified 09/01/20 02:48) Thelmaes Primary Care Physician: Sosa Chandler DO [Primary Care Provider] - Surgical History: cholecystectomy Smoking Status: Never smoker - Family History Maternal Family History: Reports: - - Patient notes a maternal family history of hypertension, of a stroke at age 93. Paternal Family History: Reports: - - Patient notes a paternal family history of hyp ertension and history of lung cancer, at 80. Review of Systems General: Denies: Chills, Fever Eyes: Denies: Visual changes - bilaterally ENT: Denies: Bilateral ear pain Cardiovascular: Denies: Chest pain Respiratory: Denies: Dyspnea, Cough Gastrointestinal: Reports: Abdominal pain, Nausea, Vomiting, Diarrhea Genitourinary: Denies: Dysuria Musculoskeletal: Denies: Extremity Pain Skin: Denies: Rash Neurological: Reports: Headache Hematologic: Denies: Easy bruising, Easy bleeding Allergy: Denies: Uticaria Physical Exam Vital Signs/Narrative: Vital Signs Temp Pulse Resp BP Pulse Ox 09/01/20 02:45 97.7 F L 101 H 18 129/57 H 98 Inital Vital Signs reviewed: Yes General: Well nourished, Well developed Head: Normocephalic Neck: Supple Cardiovascular: Regular rate, Regular rhythm Respiratory: No distress, CTA bilaterally Abdomen: Soft, Nontender, Hypoactive bowel sounds Skin: Normal color Neurological: Alert, Oriented x3 Psychological: Normal affect Diagnostic/Tx/Re-eval Laboratory Results 09/01/20 09/01/20 09/01/20 02:55 02:55 02:55 WBC 8.5 RBC 5.39 Hgb 14.6 Hct 45.0 MCV 83.5 MCH 27.1 MCHC 32.4 RDW Std Deviation 42.9 RDW Coeff of Cristo 14.1 Plt Count 316 MPV 9.6 Immature Gran % (Auto) 0.500 Neut % (Auto) 86.9 H Lymph % (Auto) 7.5 L [place] % (Auto) 4.5 Eos % (Auto) 0.4 Baso % (Auto) 0.2 Absolute Neuts (auto) 7.4 Absolute Lymphs (auto) 0.64 L Nucleated RBC % 0 Sodium 138 Potassium 3.8 Chloride 105 Carbon Dioxide 23.0 Anion Gap 10 BUN 26 H Creatinine 1.04 H Estim Creat Clear Calc 44.61 Est GFR (MDRD) Af Amer 68 Est GFR (MDRD) Non-Af 56 L BUN/Creatinine Ratio 25.0 H Glucose 164 H Calcium 9.4 Total Bilirubin 1.00 Direct Bilirubin 0.21 AST 23 ALT 39 Alkaline Phosphatase 90 Total Protein 7.1 Albumin 3.9 Globulin 3.2 - Medical Decision Making Patient has been given a liter IV fluids along with Zofran. Because she was not able to take her metoprolol dose this evening she was given 5 mg of metoprolol IV. On repeat evaluation patient states she does feel significantly better, but does still complain of some slight queasiness to her stomach. She has been given Tylenol p.o. and has been able to tolerate this okay. Patient will be given prescription for Zofran at home. She is given instructions for bland diet. ED Disposition - Plan for ED Patient: Disposition: Home or Assisted Living Diagnosis: Gastroenteritis Instructions: ED Gastroenteritis, Viral (Adult) Prescriptions: Ondansetron [Zofran Odt] 4 mg PO Q8H PRN PRN #10 tablet PRN Reason: Nausea Referrals: Sosa Chandler DO [Primary Care Provider] - 3-5 Days if not improving
[2020-09-01 03:42] LABS: AST(SGOT) 23 U/L (15-37); Alanine Aminotransfer ALT/SGPT 39 U/L (13-56); Albumin, Serum 3.9 g/dL (3.2-5.0); Alkaline Phosphatase 90 U/L (45-117); Anion Gap 10 (5-15); BUN 26 mg/dL (7-18); Bilirubin, Direct 0.21 mg/dL (0.00-0.30); Calcium,Total 9.4 mg/dL (8.5-10.1); Chloride 105 mmol/L (98-107); Creatinine, Serum 1.04 mg/dL (0.55-1.02); EST Glomerular Filtration Rate 56 mL/min (>60); Est Glom Filt Rate - Afr Amer 68 mL/min (>60); Estimated Creatinine Clearance 44.61 ml/min; Globulin 3.2 g/dL (2.2-4.2); Glucose 164 mg/dL (74-106); Potassium 3.8 mmol/L (3.5-5.1); Protein, Total 7.1 g/dL (6.4-8.2); Sodium Level 138 mmol/L (136-145)
[2020-09-01 03:59] VITALS: BP 143/80; PULSE 87; RESP 18
[2020-09-01] MEDS: Metoprolol Tartrate 5 MG/5 ML Vial IV (03:59)
[2020-09-01] MEDS: Acetaminophen 500 MG Tablet 1000 MG PO (05:15)
[2020-09-01 05:16] VITALS: PULSE 86; RESP 18; O2SAT 96
[2020-09-01 05:37] VITALS: BP 142/72; PULSE 81; RESP 16; O2SAT 99
== END 2020-09-01 05:38 | disposition home or self-care (01) ==
PROVIDERS: Emergency Provider Emergency Medicine; PCP Family Medicine
DX: K52.9 Noninfective gastroenteritis and colitis, unspecified (principal); I10 Essential (primary) hypertension; K21.9 Gastro-esophageal reflux disease without esophagitis; E03.9 Hypothyroidism, unspecified; E78.5 Hyperlipidemia, unspecified; Z90.49 Acquired absence of other specified parts of digestive tract; Z79.899 Other long term (current) drug therapy
CPT/HCPCS: 80048; 80076; 85025; 96361; 96374; 96375; 99285; J7030; A4216; J2405

== ENCOUNTER 2020-09-04 17:16 | Emergency (ER) | payer OTHER, SELFPAY ==
[2020-09-04 17:17] VITALS: BP 136/71; PULSE 67; RESP 14; TEMP 36.6; O2SAT 100; BMI 34.7
[2020-09-04 17:20] VITALS: O2SAT 99
--- NOTE | 2020-09-04 17:41 | EKG12_ITS ---
Test Reason : SYNCOPE\CP Blood Pressure : / mmHG Vent. Rate : 072 BPM Atrial Rate : 072 BPM P-R Int : 184 ms QRS Dur : 086 ms QT Int : 432 ms P-R-T Axes : 060 030 055 degrees QTc Int : 473 ms Normal sinus rhythm Normal ECG Confirmed by ZACH DAUGHERTY, JELENA ([id number]), assignment editor DIANE WANG ([id number]) on 09/07/2020 9:40:22 AM Referred By: KULDEEP Confirmed By:JELENA SERRANO MD
--- NOTE | 2020-09-04 17:41 | CT_ITS ---
STUDY: CT BRAIN WITHOUT CONTRAST REASON FOR EXAM: Female, 64 years old. Injury. Pain. RADIATION DOSAGE (If Supplied By Facility): CTDIvol = ( 44.99 ) mGy, DLP = ( 779.24 ) mGycm TECHNIQUE: Transaxial CT imaging of the brain was performed without administration of intravenous contrast material. Individualized dose optimization techniques were used for this CT. COMPARISON: 05/01/2018. FINDINGS: Normal soft tissue structures. Normal calvarium. There is mild frontal atrophy. Normal white matter tracts of the cerebral hemispheres. Normal basal ganglia and thalami. Normal brainstem. Normal cerebellum. There is focal area of hemorrhage about the BE subarachnoid in the right frontal area best seen on image 23 of series 2. There is also a smaller area of hemorrhage in the right parietal region best seen on image 36. Both measure approximately 5 mm. There are no findings of an acute ischemic infarction. Normal visualized paranasal sinuses. CT/Brain/Head without Contrast IMPRESSION: 1. 2 small areas of subarachnoid hemorrhage in the right frontal and right parietal region. 2. Mild frontal atrophy. N.B. : The above information has been verbally conveyed by Stephen Landa DO to Elvis Butler MD, on 09/04/2020 18:59:51 (ET). Electronically Signed: Stephen Landa DO at 19:01 EDT Tel [phone], Service support ,
--- NOTE | 2020-09-04 17:42 | CT_ITS ---
STUDY: CT ABDOMEN AND PELVIS WITH CONTRAST REASON FOR EXAM: Female, 64 years old. Trauma. Fell from horse. Chest pressure. Left hip pain. RADIATION DOSAGE (If Supplied By Facility): CTDIvol = ( 15.11 ) mGy, DLP = ( 1219.50 ) mGycm TECHNIQUE: Transaxial images were obtained from the dome of the diaphragm to the symphysis pubis without oral contrast. IV 100mL Isovue-370 was administered. Sagittal and coronal images were reconstructed. Individualized dose optimization techniques were used for this CT. COMPARISON: None. FINDINGS: The visualized lung bases are unremarkable. The visualized portions of the heart are within normal limits. Normal liver. There are surgical clips in the gallbladder fossa consistent with a prior cholecystectomy. Normal spleen. Normal pancreas. Normal bilateral adrenal glands. Normal right kidney. Normal left kidney. Normal visualized stomach. Normal small intestine. Normal colon. The appendix is visualized and appears normal. Normal abdominal aorta. Normal inferior vena cava. Normal retroperitoneum. Normal urinary bladder. Normal uterus. There is no adnexal mass. There is no pelvic lymphadenopathy. No free air or free fluid is seen within the peritoneal cavity. Normal abdominal wall. As bruising involving the soft tissues in the left gluteal region extending downward towards the hip. There are degenerative changes of the lumbar spine without evidence of acute fracture or subluxation. The pelvis appears intact. Both hips and proximal femurs appear grossly normal. CT/Abdomen/Pelvis W IV Cont ONLY IMPRESSION: 1. No evidence of acute intra-abdominal or pelvic process. 2. Soft tissue injury over the left buttock and hip without underlying osseous abnormality. Electronically Signed: Stephen Landa DO at 19:14 EDT Tel [phone], Service support ,
[2020-09-04] MEDS: fentaNYL 100 MCG/2 ML Ampul 50 MCG IV (17:47)
[2020-09-04] MEDS: Ondansetron 4 MG/2 ML Vial IV (17:47)
[2020-09-04 18:00] LABS: Absolute Lymphocyte Count 1.24 X10^3/uL (0.83-4.51); Absolute Neutrophil Count 7.7 X10^3/uL (2.0-7.7); Basophil# 0.02 X10^3/uL; Basophil% 0.2 % (0-1); Eosinophil# 0.08 X10^3/uL; Eosinophils% 0.8 % (0-5); Hematocrit 40.5 % (37-47); Lymphocyte # 1.24 X10^3/ul (4.0); Lymphocyte % 12.8 % (19-41); Mean Corp Hgb Conc 32.1 g/dL (32-36); Mean Corpuscular Hgb 27.3 pg (27.0-32.0); Mean Corpuscular Volume 85.1 fL (81-99); Mean Platelet Vol. 9.8 fl (6.2-12.0); Monocyte% 6.2 % (0-10); NRBC Flagged by Analyzer 0 % (0-5); Neutrophil # 7.66 X10^3/uL (2.7-7.7); Neutrophil % 79.3 % (47-70); Platelet Count 269 K/mm3 (150-450); RBC Distribution Width CV 13.7 % (11.6-14.6); RBC Distribution Width SD 43.1 fl (35.1-43.9); Red Blood Count 4.76 M/mm3 (4.2-5.4); White Blood Count 9.7 K/mm3 (4.4-11.0)
[2020-09-04 18:14] LABS: ALB/GLOB Ratio 1.1 RATIO (0.9-2.4); AST(SGOT) 17 U/L (15-37); Alanine Aminotransfer ALT/SGPT 32 U/L (13-56); Albumin, Serum 3.7 g/dL (3.2-5.0); Alkaline Phosphatase 89 U/L (45-117); Anion Gap 7 (5-15); BUN 22 mg/dL (7-18); BUN/Creat Ratio 20.8 RATIO (10-20); Calcium,Total 9.3 mg/dL (8.5-10.1); Chloride 107 mmol/L (98-107); Creatinine, Serum 1.06 mg/dL (0.55-1.02); EST Glomerular Filtration Rate 55 mL/min (>60); Est Glom Filt Rate - Afr Amer 67 mL/min (>60); Estimated Creatinine Clearance 43.77 ml/min; Globulin 3.4 g/dL (2.2-4.2); Glucose 132 mg/dL (74-106); Potassium 3.8 mmol/L (3.5-5.1); Protein, Total 7.1 g/dL (6.4-8.2); Sodium Level 139 mmol/L (136-145)
[2020-09-04 18:17] VITALS: BP 140/75; PULSE 81; RESP 15; O2SAT 98
--- NOTE | 2020-09-04 18:25 | RAD_ITS ---
STUDY: X-RAY CHEST REASON FOR EXAM: Female, 64 years old. Follow-up. Fell off a horse. Loss of consciousness. Drove home and had syncopal episode. Chest pressure. TECHNIQUE: PICC line COMPARISON: None. FINDINGS: The lungs are clear and expanded. There is no demonstrated pleural abnormality. Normal size heart. Normal mediastinum and sharyn. Normal visualized pulmonary arteries. Normal visualized aortic arch and descending thoracic aorta. Normal visualized thoracic spine. Marked degenerative changes of both shoulders. There is no demonstrated abnormality of the visualized soft tissue structures of the upper abdomen. RAD/Chest PA and Lateral IMPRESSION: No acute cardiopulmonary disease. Electronically Signed: Stephen Landa DO at 19:09 EDT Tel [phone], Service support ,
--- NOTE | 2020-09-04 18:26 | ED.VISSUMM ---
- ER Visit Summary Date of Service: 09/04/20 Chief Complaint: Fall from horse History of Present Illness: The patient is a [address] Ortega. She reports that she was riding her horse and woke up on the ground. She does not remember driving to the house. Next thing she knows she woke up in the toilet in the bathroom. She complains of a mild headache. She has neck pain instead of 10 severity. Chest pain is tightness in severity. Left hip pain is 6 out of 10 severity. Patient is not on an anticoagulant. Physical Examination: Vitals: Stable. Afebrile. Neck: No vertebral tenderness. Full ROM without difficulty. Cleared by NEXUS criteria. Back: No vertebral tenderness. General: A&O x 3. NAD. Cardiovascular exam: Regular rate and rhythm, no murmur, rub or gallop. Respiratory exam: Mild tenderness to palpation over the sternum. No crepitus. Clear to auscultation bilaterally. No wheezes or stridor. Abdominal exam: Soft, moderate left lower quadrant and left flank pain, nondistended, normal bowel sounds. No pain in RUQ or LUQ specifically. No peritoneal signs. Extremity: Atraumatic. No pain with range of motion. Test Results: CBC shows segmented feels a 79 lymphocytes 13. Chem-7 shows a BUN of 22, creatinine 1.06, glucose 132. LFTs are normal. EKG is sinus at [address] changes and artifact. Clinical Impression(s) from Imaging Studies Brain CT 09/04/20 17:41 IMPRESSION: 1. 2 small areas of subarachnoid hemorrhage in the right frontal and right parietal region. 2. Mild frontal atrophy. N.B. : The above information has been verbally conveyed by Stephen Landa DO to Elvis Butler MD, on 09/04/2020 18:59:51 (ET). Electronically Signed: Stephen Landa DO at 19:01 EDT Tel [phone], Service support , ADDENDUM: 09/04/20 5082 IMPRESSION: 1. 2 small areas of subarachnoid hemorrhage in the right frontal and right parietal region. 2. Mild frontal atrophy. N.B. : The above information has been verbally conveyed by Stephen Landa DO to Elvis Butler MD, on 09/04/2020 18:59:51 (ET). Electronically Signed: Stephen Landa DO at 19:01 EDT Tel [phone], Service support , Abdomen/Pelvis CT 09/04/20 17:42 IMPRESSION: 1. No evidence of acute intra-abdominal or pelvic process. 2. Soft tissue injury over the left buttock and hip without underlying osseous abnormality. Electronically Signed: Stephen Landa DO at 19:14 EDT Tel [phone], Service support , Chest X-Ray 09/04/20 18:25 IMPRESSION: No acute cardiopulmonary disease. Electronically Signed: Stephen Landa DO at 19:09 EDT Tel [phone], Service support , Emergency Department Course and Treatment: Patient had an IV placed. She was given fentanyl and Zofran IV. She is resting comfortably. Treatment Plan: Patient was discussed with the emergency department [facility] and will be transferred there for further evaluation and treatment. Disposition: Transferred in serious condition. Impression: 1. Fall from horse. 2. Traumatic subarachnoid hemorrhage. 3. Left buttock contusion. 4. Critical care time 33 minutes. This note was generated with [employer] dictation software. It may contain incorrect words, spelling, and punctuation that were not noted in review of the chart prior to signing ED Disposition - Plan for ED Patient: Referrals: Sosa Chandler DO [Primary Care Provider] -
[2020-09-04 19:00] VITALS: BP 136/78; PULSE 82; RESP 16; O2SAT 97
--- NOTE | 2020-09-04 19:46 | CT_ITS ---
STUDY: CT CERVICAL SPINE WITHOUT CONTRAST REASON FOR EXAM: Female, 64 years old. Trauma. Fell off a horse. RADIATION DOSAGE (If Supplied By Facility): CTDIvol = ( 22.98 ) mGy, DLP = ( 483.56 ) mGycm TECHNIQUE: High resolution transaxial imaging was performed without contrast material. Sagittal and coronal images were reconstructed. Individualized dose optimization techniques were used for this CT. COMPARISON: None FINDINGS: Normal craniovertebral junction. Normal anterior atlantoaxial articulation. Normal odontoid process. There is straightening of the normal cervical lordosis. Normal vertebral bodies and posterior osseous elements. C2-3: Normal endplates. Normal disc height and morphology. Normal central canal and intervertebral neuroforamina. C3-4: Normal endplates. Mild disc space narrowing. Facet joint degenerative change. Normal central canal and intervertebral neuroforamina. C4-5: Normal endplates. Normal disc height and morphology. Facet joint degenerative change. Normal central canal and intervertebral neuroforamina. C5-6: Loss of disc height with minimal endplate spondylosis. Facet joint degenerative change. Normal central canal and intervertebral neuroforamina. C6-7: Loss of disc height with minimal endplate spondylosis. Facet joint degenerative change. Normal central canal and intervertebral neuroforamina. C7-T1: Normal endplates. Normal disc height and morphology. Normal central canal and intervertebral neuroforamina. Normal visualized soft tissue structures. CT/Spine Cervical without Contras IMPRESSION: 1. Straightening of the cervical lordosis thought to be positional. 2. Mild degenerative changes of the cervical spine. There is no acute fracture or subluxation. Note: MRI is more sensitive than CT in detecting cord injury, ligamentous injury and epidural hematoma. If there is continued clinical concern for any of these entities, MRI should be considered. Electronically Signed: Stephen Landa DO at 20:18 EDT Tel [phone], Service support ,
[2020-09-04 20:00] VITALS: BP 133/71; PULSE 76; RESP 18; O2SAT 14
[2020-09-04 20:12] VITALS: BP 133/71; PULSE 89; RESP 18; O2SAT 98
== END 2020-09-04 20:24 | disposition short-term general hospital (02) ==
LOC: ED 18:16
PROVIDERS: Emergency Provider Emergency Medicine; PCP Family Medicine
DX: S06.6X0A Traumatic subarachnoid hemorrhage without loss of consciousness, initial encounter (principal); S30.0XXA Contusion of lower back and pelvis, initial encounter; E78.00 Pure hypercholesterolemia, unspecified; K21.9 Gastro-esophageal reflux disease without esophagitis; V80.010A Animal-rider injured by fall from or being thrown from horse in noncollision accident, initial encounter; Y93.52 Activity, horseback riding
CPT/HCPCS: 70450; 71046; 72125; 74177; 80053; 85025; 93005; 96374; 96375; 99285; J7030; Q9967; A4216; J2405

== ENCOUNTER → 2020-10-06 12:28 | Outpatient (CLI) | payer OTHER, SELFPAY ==
--- NOTE | 2020-10-06 12:43 | RAD_ITS ---
HISTORY: LUMBAR SPINE PAIN S/P FALL OFF HORSE COMPARISON: CT scan of the abdomen and pelvis from September 04, 2020 FINDINGS: # of images incl. paperwork: 5 XR Spine Lumbar frontal, lateral, bilateral oblique, and coned-down lateral: Lumbar vertebral bodies are normal in height. Lumbar disc spaces areare narrowed with degenerative malalignment and enthesophytes at several levels. Endplate sclerosis abutting the disc spaces is greatest at the L4-L5 level. The patient has tiny ribs at the lowest thoracic vertebral body, and large transverse processes at the L5 level with pseudoarticulation of the transverse processes with the sacrum. This is normal anatomic variability.. No acute lumbar spine fracture or subluxation. Facet arthropathy is also present at many levels. Bonine endplates with Schmorl's node invaginations are present within the lower thoracic spine RAD/L/S Spine Min 4 Views IMPRESSION: No acute lumbar spine fracture or subluxation. Consistent with the findings from September 04, 2020 CT scan, multilevel degenerative disc disease, facet arthropathy, mild degenerative malalignment, no acute fracture or acute traumatic subluxation perceived at 2349 Reported and signed by: Marty Reynaga MD Electronically Signed: Marty Reynaga MD at 23:48 EDT Tel , Service support ,
== END ==
PROVIDERS: PCP Family Medicine; Referring Provider Family Medicine; Visit Provider Family Medicine
DX: M54.5 Low back pain (principal); W19.XXXA Unspecified fall, initial encounter
CPT/HCPCS: 72100; 72110

== ENCOUNTER → 2020-10-12 15:15 | Outpatient (CLI) | payer OTHER, SELFPAY ==
--- NOTE | 2020-10-12 15:17 | BI_ITS ---
MAMMOGRAPHY - BILATERAL SCREENING REASON FOR EXAM: Female, 64 years old. Routine annual screening examination. PERTINENT HISTORY: Non-contributory. TECHNIQUE: Digital bilateral breast flakito (3D mammographic acquisition) in the CC and MLO projections. 2-D mediolateral oblique (MLO) and craniocaudad (CC) views of both breasts were obtained. CAD: Full Field Digital Mammography with Computer Added Detection was performed. COMPARISON: Comparison is made with prior study dated 10/12/2019 and 05/13/2017. FINDINGS: Breast Composition: There are scattered areas of fibroglandular density. There are no dominant masses or suspicious calcifications. No other significant abnormalities are identified. There has been no significant change since the prior study. BI/SCRN MAMM (CAD)W/FLAKITO BILAT IMPRESSION: Stable bilateral screening mammogram. Yearly follow-up mammogram recommended. (A) ASSESSMENT CATEGORY: BIRADS Category 1: Negative. A letter regarding these results will be sent to the patient by the facility within 30 days. Approximately 10% of breast cancers are not detected by mammography. A normal mammogram should not delay biopsy of a clinically suspicious abnormality. [id number] Electronically Signed: Zach Muñoz MD at 8:35 EDT , Service support ,
== END ==
PROVIDERS: PCP Family Medicine; Referring Provider Family Medicine; Visit Provider Family Medicine
DX: Z12.31 Encounter for screening mammogram for malignant neoplasm of breast (principal)
CPT/HCPCS: 77063; 77067

== ENCOUNTER 2020-10-27 13:30 | Outpatient (RCR) | payer OTHER, SELFPAY ==
--- NOTE | 2020-10-09 12:04 | HP.PTEVAL ---
Patient's Visit Information ACE HINES is a 64 year old F referred to Physical Therapy by Dr. Sosa Green DO with a diagnosis of LEFT SIDE AND LOW BACK PAIN. Date of Evaluation: 10/09/20 Physical Therapist: Delia Morales PT, Cert MDT - Visit Plan Frequency: 2-3x /Week Duration: 4-6 Weeks Plan: POSTURE CORRECTION/STRENGTHENING, INSTRUCTION IN APPROPRIATE BODY MECHANICS AND ACTIVITY MODIFICATIONS. DLS STARTING WITH A NEUTRAL SPINE PROGRESSING ROM TOLERATED. ELIEL LE ROM, STRETCHING AND STRENGTHENING. HEP INSTRUCTION. 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 HAS ONLY BEEN ABLE TO FEED THEM SINCE THE FALL 09/04/20. Disability: NO. Present symptoms: LEFT SIDE, LOW BACK, BUTTOCK, HIP AND THIGH PAIN AND NUMBNESS. THE PAIN IS INCREASING. PATIENT REPORTS SHE ALSO HAS SOME SORENESS GOING UP HER LEFT SIDE INTO HER ARMPIT AREA. PATIENT REPORTS SHE IS HAVING DIGESTIVE PROBLEMS TOO. RE-OCCURANCE OF LEFT KNEE PAIN OVER THIS PAST WEEKEND FOR NO APPARENT REASON AND IT HAD NOT BEEN HURTING SINCE MAY. Present since: 09/04/20. Pain Scale: WORST 7/10, LEAST 0/10. Currently: 6/10 - WORSENING. Commenced as a result of: FELL OFF HORSE. STATES SHE HAS NO MEMORY OF IT. THINKS SHE GOT THROWN OVER HIS HEAD AND LANDED ON L BACK AND SIDE AND TWISTED. STATES HER STERNUM WAS REALLY SORE TOO. BRUISED STERNUM. WAS IN ARENA AT HOME RIDING ALONE. LOST CONSCIOUSNESS AND DOESN'T REMEMBER PUTTING HORSE AWAY OR DRIVING HERSELF BACK IN THE HOUSE. SPOKE TO HER SON ON THE PHONE AND HE CALLED THE [facility]. WAS BROUGHT TO [facility] AND TRANFERRED TO [facility] X 2 DAYS. STATES SHE WAS DIAGNOSED WITH 2 BRAIN BLEEDS AND SHE SAID THAT WAS BASICALLY IT. STATES THE CAT SCANS DID NOT SHOW ANY FRACTURES. Worse: USING ABDOMINAL MUSCLES WHILE TRYING TO CLEAN STULLS. Better: TYLONOL. Disturbed sleep: NO. Previous history/Previous treatment: NO BACK SURGERY. NO LIAM'S. NO CHIROPRACTOR FOR A LONG TIME. LOW BACK PAIN HAS NOT BEEN A PROBLEM. NO LEFT HIP PROBLEMS BEFORE THE FALL. Treatment this episode: MEDICATION. Coughing/sneezing/straining: NEGATIVE. Gait: PATIENT REPORTS THAT SINCE THE FALL SHE WALKS SLOWER BUT INS'T USING A CANE OR A WALKER ANYMORE. STARTED ON WALKER AFTER D/C FROM THE HOSPITAL, PROGRESSED TO CANE AND NOW CAN GO WITHOUT. Difficulty initiating urinatin: NO. Accidents: LAST SUMMER HORSE KICKED HER AND SHE GOT A BONE BRUISE ON HER L KNEE. Unexplained weight loss: LOSS OF APPETITE - STATES DR. GREEN DOES NOT KNOW BUT SHE WILL REPORT. Imagin10/06/20 LUMBAR X-RAY: MPRESSION: No acute lumbar spine fracture or subluxation. Consistent with the findings from September 04, 2020 CT scan, multilevel. degenerative disc disease, facet arthropathy, mild degenerative. malalignment, no acute fracture or acute traumatic subluxation perceived. PMH/Recent major surgery: DEPRESSION, HIGH CHOLESTEROL, HIATIAL HERNIA, MIGRAINES, TREMOR, GERD, HYPOTHYROIDISM, OSTEOPENIA, H/O SKIN CANCER. L KNEE INJURY - SEE ABOVE. - Objective Sitting/Standing Posture: POOR. INCREASED WEIGHT BEARING ON R LE COMPARED TO LEFT AND UNABLE TO FULLY STRAIGHTEN L KNEE IN STANDING. WEAR A L KNEE BRACE GIVEN TO HER BY DR. TREJO LAST FALL. Lordosis: Lateral shift: Relevant shift: Active Correction of posture: Other Observations: Motor deficit: ELIEL LE'S GROSSLY 5/5 EXCEPT RIGHT HIP 4/5 AND L 4-/5. Sensory deficit: ELIEL LE LIGHT TOUCH SENSATION GROSSLY INTACT AND SYMMETRICAL BUT DECREASED LIGHT TOUCH SENSATION ALONG L FLANK, BACK AND BUTTOCK REGIONS. ROM deficit: L KNEE. TIGHT ELIEL LE HIP FLEXORS, HS'S AND GASTROC SOLEUS COMPLEXES. L HS TIGHTNESS GREATER THAN RIGHT. Reflexes: NT. Dural Signs: POSSIBLE POSITIVE LLE. Lumbar mvmt loss: flex - MIN. ext - MIN. R SG - MIN. L SG - MIN. PATIENT DENIES INCREASED PAIN WITH LUMBAR ROM TESTING ALL PLANES BUT REPORTED THAT HER STOMACH WAS STARTING TO GET UPSET. SITTING DOWN MADE STOMACH FEEL BETTER. Core strength: POOR. Palpation: NO ACUTE THORACIC, RIB, LUMBAR, BUTTOCK OR HIP PAIN WITH PALPATION TODAY ELIEL. TREATMENT: NEUROMUSCULAR REEDUCATION - RETRAINING OF MVMT AND POSTURE FOR SITTING, LYING AND STANDING ACTIVITIES. - Goals Goal 1:: DECREASE C/O LEFT LOW BACK, FLANK AND HIP PAIN Goal Time Frame: 4-6 Weeks Goal 2:: IMPROVE PERSONAL CARE, LIFTING, WALING, SITTING, STANDING, SOCIAL LIFE, TRAVEL AND HOMEMAKING FUNCTION. Goal Time Frame: 4-6 Weeks Goal 3:: INSTRUCT IN PROPHYLAXIS Goal Time Frame: 4-6 Weeks - Anticipated Interventions Patient/Client Instruction: Educate patient on: Condition, Plan of Care, Risk Factors Therapeutic Exercise to Include: Strength training, Body mechanics, Postural training, Flexibilty training, Neuromotor development, In an aquatic setting, Dynamic Lumbar Stabilization For the Purpose of:: To decrease pain, To increase ROM, To improve muscle performance and motor function, To increase tolerance to activity/condition/position, To improve ability of physical actions for home/community/work/leisure, To improve gait and locomotor functions Cryotherapy (ice pack, ice massage): Yes Thermo therapy (hot pack): Yes Ultrasound (thermal/non thermal): Yes For the Purpose of:: To decrease pain, To improve nutrient delivery to tissue Thank you for the opportunity to evaluate your patient. For Medicare and Medicare HMO plans, please review the plan of care and approve it. It will need to be FAXED BACK to us at [phone] for Medicare purposes. For Medicare only, by signing this I certify the plan of care. Please let me know if there are questions or concerns regarding this plan of care. Physician Signature: Date:
--- NOTE | 2020-10-27 14:50 | HP.PTREVAL_ITS ---
Dr. Sosa Chandler, DO, It has been my pleasure to treat ACE HINES over the last 7 visits for LEFT SIDE AND LOW BACK PAIN. Please see the progress note below for an update on the physical therapy plan of care! Subjective: PATIENT REPORTS SHE IS FEELING BETTER. THERE IS STILL A SENSATION THAT PULLS MY ATTENTION A LITTLE BIT POINTING TO LEFT LOW BACK. STARTED WALKING PROGRAM. ON RIDING MOWER ABOUT 2.5 HOURS AND GOT BUMPED AROUND A LITTLE BIT. PATIENT REPORTS SHE IS STARTING TO GET BACK TO NORMAL BUT HAS BEEN AVOIDING CLEANING STULLS AND LIFTING HAY. WANTS TO BE ABLE TO WORK HER HORSES AGAIN WITHOUT PAIN AND SHE WILL NEED TO LIFT THE SADDLE AND SHE COULD GET JERKED AROUND SOME. PATIENT REPORTS SHE FEELS READY TO CONTINUE ON HER OWN AT THIS P OINT. NERVE CONDUCTION TEST PENDING IN DECEMBER. Objective/Function: PATIENT WAS SEEN TODAY FOR RE-ASSESSMENT OF PROGRESS TOWARD THE SET PT GOALS AND THE NEED FOR FURTHER PHYSICAL THERAPY VS READINESS FOR DISCHARGE. UPON EXAM TODAY: Motor deficit: ELIEL LE'S GROSSLY 5/5. Sensory deficit: ELIEL LE LIGHT TOUCH SENSATION GROSSLY INTACT AND SYMMETRICAL BUT DECREASED LIGHT TOUCH SENSATION LOCALIZED TO L LOW BACK REGION NOW. ROM deficit: L KNEE. TIGHT ELIEL LE HIP FLEXORS, HS'S AND GASTROC SOLEUS COMPLEXES. L HS TIGHTNESS GREATER THAN RIGHT. Dural Signs: POSSIBLE POSITIVE LLE. Lumbar mvmt loss: flex - NIL. ext - MIN. R SG - MIN. L SG - MIN. PATIENT DENIES INCREASED PAIN WITH LUMBAR ROM TESTING ALL PLANES TODAY. Core strength: POOR. Palpation: NO ACUTE THORACIC, RIB, LUMBAR, BUTTOCK OR HIP PAIN WITH PALPATION TODAY ELIEL. THIS PT RECOMMENDS PHYSICIAN FOLLOW UP AND PATIENT WILL CONSIDER. Plan Plan: D/C TO [facility] AND FOLLOW UP WITH DR. CHANDLER. Goals Goal 1:: DECREASE C/O LEFT LOW BACK, FLANK AND HIP PAIN Goal Time Frame: 4-6 Weeks Goal Progress: Goal Met Goal 2:: IMPROVE PERSONAL CARE, LIFTING, WALING, SITTING, STANDING, SOCIAL LIFE, TRAVEL AND HOMEMAKING FUNCTION. Goal Time Frame: 4-6 Weeks Goal Progress: Goal Met Goal 3:: INSTRUCT IN PROPHYLAXIS Goal Time Frame: 4-6 Weeks Goal Progress: Goal Met Anticipated Interventions Patient/Client Instruction: Educate patient on: Condition, Plan of Care, Risk Factors Therapeutic Exercise to Include: Strength training, Body mechanics, Postural training, Flexibilty training, Neuromotor development, In an aquatic setting, Dynamic Lumbar Stabilization For the Purpose of:: To decrease pain, To increase ROM, To improve muscle performance and motor function, To increase tolerance to activity/condition/position, To improve ability of physical actions for home/community/work/leisure, To improve gait and locomotor functions Cryotherapy (ice pack, ice massage): Yes Thermo therapy (hot pack): Yes Ultrasound (thermal/non thermal): Yes For the Purpose of:: To decrease pain, To improve nutrient delivery to tissue Please do not hesitate to contact me at [phone] by phone or if you have questions or concerns regarding this new plan of care! Sincerely, Delia Morales, PT, Cert MDT
--- NOTE | 2021-04-17 13:17 | HP.PT.NRP ---
ACE HINES was seen in my office for initial evaluation on 10/09/20. The following Plan of Care was established for this patient: Initial Frequency: 2-3x /Week Initial Duration: 4-6 Weeks Patient/Client Instruction: Educate patient on: Condition, Plan of Care, Risk Factors Therapeutic Exercise to Include: Strength training, Body mechanics, Postural training, Flexibilty training, Neuromotor development, In an aquatic setting, Dynamic Lumbar Stabilization For the Purpose of:: To decrease pain, To increase ROM, To improve muscle performance and motor function, To increase tolerance to activity/condition/position, To improve ability of physical actions for home/community/work/leisure, To improve gait and locomotor functions Cryotherapy (ice pack, ice massage): Yes Thermo therapy (hot pack): Yes Ultrasound (thermal/non thermal): Yes For the Purpose of:: To decrease pain, To improve nutrient delivery to tissue This patient was last seen in our office 10/27/20. Pertinent comments regarding their Physical therapy will appear below: This patient has not returned to Physical Therapy and is appropriate to return to MD for further follow-up as needed. At this point I will be discontinuing this patient from physical therapy. I would be happy to see this patient again in the future if found appropriate by the physician. Thank you! Delia Morales, PT, Cert MDT Balance/Gait/Functional tests - Balance/Special Test Scores Oswestry Low Back Score: 1
== END 2020-10-27 19:00 | disposition home or self-care (01) ==
LOC: PT 13:30
PROVIDERS: PCP Family Medicine; Referring Provider Family Medicine; Visit Provider Family Medicine
DX: M54.5 Low back pain (principal)
CPT/HCPCS: 97035; 97162; 97164; 97530

== ENCOUNTER → 2021-03-30 17:25 | Outpatient (CLI) | payer MEDICARE, SELFPAY | PROVIDERS: PCP Family Medicine; Visit Provider Family Medicine | DX: Z20.828 Contact with and (suspected) exposure to other viral communicable diseases (principal) | CPT/HCPCS: 87635; U0005; U0003 ==

== ENCOUNTER 2021-05-30 12:00 | Outpatient (RCR) | payer MEDICARE, SELFPAY ==
--- NOTE | 2021-05-11 14:46 | HP.PTEVAL_ITS ---
Patient's Visit Information ACE HINES is a 65 year old F referred to Physical Therapy by DEJA Helms with a diagnosis of L leg pain, LBP. Date of Evaluation: 05/11/21 Physical Therapist: Darius Abraham DPT, OCS, CSCS - Visit Plan Frequency: 2-3x /Week Duration: 4-6 Weeks Plan: 2-3x/week for 4-6 weeks for. 1. STM and rollout to L quad and ITB laterally, DTR to lateral quad and ITB with tool. 2. MH and stretch L ITB and quad. 3. hip stabs and strengtheners of hip and knee ext - Subjective 1.5 yrs ago got kicked by a horse and started having L leg pain. Saw Dr. Olguin and had PT and x rays and it still hurt. Had MRI that showed bone bruise in L femur and swelling distal quad. Achiness ind swelling persists in L distal quad and saw [facility] and found tenderness. Interested if bone bruise heals and wants MRI to see if it healed but needs PT first. Descirbed as achiness in L leg intermittently, brought on with standing from sitting too long. Achy standing from sitting and when trying to sleep at night. Sleeps on R side with knees bent or on left side. Slow up steps but it hurts a little. Walking long distance causes achiness. Also has pinched nerve in LB effecting L hip left over from accidnet 9 months ago. L hip is sensitive. No real back pain. 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 Leg is OK out there. [facility] ADLs are getting done and not too bad. No regular exercises. Has been better since doctor pushed on her. Overall 60% better than at doc visit. - Pain L leg pain. Pain Intensity (Out of 10): 0 Pain Intensity Range: 0, 2 - Objective L. Walks normal and I, Steps reciprocal without pain, slow. Trasnfers I. Balance is good. LB AROM WFL and without pain. L leg is painful to palpation in distal ITb and lateral quad distally mildly. ITB and quad are tight on L as compared to R and achy with stretching. AROM hip WFL and symmetrical, knees L 0-127 and R 0-138. ankles AROM symmetrical and WNL. reflexes 2/3 patella and achilles. sensation LE WNL to gross lgiht touch. Strength hips 4 R abd, ext, flexion and 3+ L. Knee strength 4- L ext and 4 R, HSC 4 B. ankle strength 4+ B . \Nodules palpable lateral L ITB with tenderness midsubstance also. - Balance/Special Test Scores Lower Extremity Functional Score: 69 - Goals Goal 1:: Sleep 6-7 hours without aching at night Goal Time Frame: 4-6 Weeks Goal 2:: exit chair after sitting without pain Goal Time Frame: 4-6 Weeks Goal 3:: I appropriate HEP to limit future problems Goal Time Frame: 4-6 Weeks Goal 4:: Pt feel 95% better overall. Goal Time Frame: 4-6 Weeks Goal 5:: LEFS 62 Goal Time Frame: 4-6 Weeks - Rehabilitation Potential Physical Therapy Diagnosis: L leg pain limiting comfort and sleep Rehabilitation Potential: Fair - Anticipated Interventions Patient/Client Instruction: Educate patient on: Condition, Plan of Care For the Purpose of:: To decrease pain, To increase ROM, To improve nutrient delivery to tissue, To improve muscle performance and motor function, To improve ability of physical actions for home/community/work/leisure, To improve gait and locomotor functions Therapeutic Exercise to Include: Strength training, Flexibilty training, Gait and locomotor training, Passive ROM, Active ROM For the Purpose of:: To decrease pain, To increase ROM, To improve nutrient delivery to tissue, To improve muscle performance and motor function, To increase tolerance to activity/condition/position, To improve ability of physic al actions for home/community/work/leisure Manual Therapy Techniques to Include: Mobilization, Passive ROM, Soft tissue mobilization For the Purpose of:: To decrease pain, To increase ROM, To improve nutrient delivery to tissue, To improve muscle performance and motor function Thermo therapy (hot pack): Yes For the Purpose of:: To improve nutrient delivery to tissue Thank you for the opportunity to evaluate your patient. For Medicare and Medicare HMO plans, please review the plan of care and approve it. It will need to be FAXED BACK to us at [phone] for Medicare purposes. For Medicare only, by signing this I certify the plan of care. Please let me know if there are questions or concerns regarding this plan of care. Physician Signature: Date:
--- NOTE | 2021-05-30 12:46 | HP.PTDCSUM ---
It has been my pleasure to treat ACE HINES referred by DEJA Helms, with the diagnosis of L leg pain, LBP for a total of 8 visit(s). Discharge Date: 05/30/21 Please see the following information for a summary of their discharge status. Subjective: Getting better. I can lock L knee back now and has more ROM. feels stornger in L LE. Pain in L leg is better, aches if she uses it alot, no severe pain, aches to 3/10. Comfortable at rest. Back is OK. Activities are normal. Sleep is good. Nothing scheduled with doctor. Doing HEP daily.Doesn't feel like she needs MRi anymore. L leg pain. Pain Intensity (Out of 10): 0 % Improvement: 85 Objective/Function: walks normal, steps normal without weakness or pain. Working nicely toward goals and she does not feel like she needs further treatment or f/u with doctor if this pace of improvment continues. Goal 1:: Sleep 6-7 hours without aching at night Goal Progress: Goal Met Goal 2:: exit chair after sitting without pain Goal Progress: Goal Met Goal 3:: I appropriate HEP to limit future problems Goal Progress: Goal Met Goal 4:: Pt feel 95% better overall. Goal Progress: 85% Goal 5:: LEFS 62 Goal Progress: Goal Met Plan: d/c, pt to contact doctor if pain worsens again. If there are questions or concerns regarding this patient's physical therapy, please feel free to call me at [phone]. Thank you for the referral of this patient. Sincerely, Darius Abraham, DPT, OCS, CSCS Balance/Gait/Functional tests - Balance/Special Test Scores Lower Extremity Functional Score: 66
== END 2021-05-30 19:00 | disposition home or self-care (01) ==
LOC: PT 12:00
PROVIDERS: PCP Family Medicine; Referring Provider Physician Assistant; Visit Provider Physician Assistant
DX: M79.605 Pain in left leg (principal); M54.50 Low back pain, unspecified
CPT/HCPCS: 97110; 97140; 97161; 97164

== ENCOUNTER 2021-10-07 13:34 | Emergency (ER) | payer MEDICARE, SELFPAY ==
[2021-10-07 13:35] VITALS: BP 122/90; PULSE 104; RESP 18; TEMP 36.6; O2SAT 99; BMI 37.5
[2021-10-07] MEDS: 0.9% Normal Saline 1,000 ML 1000 ML IV (13:53)
--- NOTE | 2021-10-07 13:53 | EDS_ITS ---
HPI History of Present Illness Chief Complaint: Nausea/Vomiting Informant: patient Onset/Context/Timing Onset: Yesterday Current Severity: Mild Maximum Severity: Moderate Narrative Narrative: Patient presents secondary to nausea, vomiting, diarrhea. Symptoms started last evening. This morning she found some leftover Zofran and has not vomited since then, but still feels generally weak. She has had some chills. [facility] Medical History Anemia Depression Impingement syndrome of right shoulder Right shoulder pain Severe headache Shoulder pain Skin cancer Viral syndrome Home Medications atorvastatin 10 mg PO QHS 12/28/13 [History Last Taken Unknown] escitalopram oxalate 20 mg PO DAILY 12/28/13 [History Last Taken Unknown] famotidine 20 mg PO DAILY 12/28/13 [History Last Taken Unknown] metoprolol succinate 25 mg PO DAILY 12/28/13 [History Last Taken Unknown] nortriptyline 35 mg PO QHS 12/28/13 [History Last Taken Unknown] pantoprazole 20 mg tablet,delayed release 40 mg PO DAILY tab 09/09/17 [History Last Taken Unknown] liothyronine 5 mcg PO BID 03/10/18 [History Last Taken Unknown] levothyroxine 50 mg PO DAILY 05/07/19 [History Last Taken Unknown] lorazepam 0.5 mg PO DAILY PRN 09/01/20 [History Last Taken Unknown] ondansetron 4 mg PO Q8H PRN PRN #10 tablet 09/01/20 [Rx Last Taken Unknown] ondansetron 4 mg PO Q8H PRN #10 tab 10/07/21 [Rx Last Taken Unknown] Allergy/AdvReac Type Severity Reaction Status Date / Time adhesive tape Allergy Rash Verified 10/07/21 13:38 Penicillins Allergy Hives Verified 10/07/21 13:38 Surgical History History of repair of ACL history of right hand surgery Social History Smoking Status: Never smoker alcohol intake: never ROS ROS ED Constitutional Constitutional ED: Reports chills; Denies fever(s) Eyes Eyes: Denies change in vision ENT ENT ED: Denies sore throat Cardiovascular Cardiovascular: Denies chest pain Respiratory/Chest Respiratory/Chest: Denies cough or dyspnea Gastrointestinal Gastrointestinal: Reports abdominal pain, diarrhea, nausea and vomiting Genitourinary Genitourinary ED: Denies dysuria Musculoskeletal Musculoskeletal: Denies back pain Integumentary Denies rash Neurologic Neurologic: Denies headache(s) or weakness Allergic/Immunologic Allergic/Immunologic ED: Denies urticaria EXAM Physical Exam Const Vital Signs: 10/07/21 13:35 Temperature 97.9 F Temperature Source Temporal Pulse Rate 104 H Respiratory Rate 18 Blood Pressure 122/90 H Blood Pressure Mean 100 Pulse Ox 99 Oxygen Delivery Method Room Air Positive well nourished and well developed General Appearance ED: well developed HEENT Reports moist mucous membranes Eyes PERRL and EOMs intact bilaterally Neck supple Chest Wall inspection of chest normal and palpation of chest normal Resp normal respiratory effort and clear to auscultation bilaterally Cardio regular rate and regular rhythm GI Palpation: soft and tender epigastric Extremity normal to inspection Neuro oriented x3 Neuro Narrative: No focal neuro deficits. Sensorium / Orientation: alert Psych mental status grossly normal Skin no rashes or lesions noted MDM MDM MDM Narrative Medical decision making narrative: Patient given Zofran and IV fluids. Lab work obtained. Lab Data Attestation: I reviewed the patient's lab results. Labs: Laboratory Results - last 24 hr 10/07/21 10/07/21 13:55 13:55 WBC 8.2 RBC 5.04 Hgb 13.7 Hct 42.6 MCV 84.5 MCH 27.2 MCHC 32.2 RDW Std Deviation 41.9 RDW Coeff of [place] 13.7 Plt Count 307 MPV 9.4 Immature Gran % (Auto) 0.500 Neut % (Auto) 86.2 H Lymph % (Auto) 7.6 L [place] % (Auto) 5.4 Eos % (Auto) 0.2 Baso % (Auto) 0.1 Absolute Neuts (auto) 7.0 Absolute Lymphs (auto) 0.62 L Nucleated RBC % 0 Sodium 138 Potassium 2.9 L Chloride 105 Carbon Dioxide 24.0 Anion Gap 9 BUN 24 H Creatinine 1.34 H Estim Creat Clear Calc 32.66 Est GFR (MDRD) Af Amer 51 L Est GFR (MDRD) Non-Af 42 L BUN/Creatinine Ratio 17.9 Glucose 140 H Calcium 9.2 Total Bilirubin 0.80 Direct Bilirubin 0.21 AST 21 ALT 26 Alkaline Phosphatase 85 Total Protein 7.4 Albumin 3.7 Globulin 3.7 Lipase 78 Treatment and Re-Evaluation Narrative: White count normal with slight left shift. Chemistry studies significant for low potassium at 2.9. Creatinine slightly elevated at 1.34. Remainder of LFTs normal. Repeat evaluation patient resting comfortably. She is tolerating ice chips. She is given liquid p.o. potassium replacement and tolerates this well. She will be given a prescription for Zofran at home. She will continue supportive care. Return instructions provided. Discharge Plan Triage Chief Complaint: Nausea/Vomiting ED Provider: Nurys Drew Dx/Rx/DC Orders Clinical Impression: Viral gastroenteritis, Hypokalemia Instructions: ED Hypokalemia, ED Gastroenteritis, Viral (Adult) Prescriptions: New ondansetron 4 mg tablet,disintegrating 4 mg PO Q8H PRN (Reason: nausea and vomiting) Qty: 10 RF: 0 No Action pantoprazole [Protonix] 20 mg tablet,delayed release (DR/EC) 40 mg PO DAILY RF: 0 atorvastatin 10 MG tablet 10 mg PO QHS RF: 0 nortriptyline 25 MG capsule 35 mg PO QHS RF: 0 famotidine 20 MG tablet 20 mg PO DAILY RF: 0 metoprolol succinate 25 MG tablet 25 mg PO DAILY RF: 0 escitalopram oxalate 20 MG tablet 20 mg PO DAILY RF: 0 liothyronine 5 MCG tablet 5 mcg PO BID RF: 0 levothyroxine 50 MCG tablet 50 mg PO DAILY RF: 0 lorazepam 0.5 MG tablet 0.5 mg PO DAILY PRN (Reason: Anxiety) RF: 0 ondansetron 4 MG tablet 4 mg PO Q8H PRN PRN (Reason: Nausea) Qty: 10 RF: 0 Primary Care Provider: Sosa Chandler Referrals: Sosa Chandler DO [Primary Care Provider] - 3-5 Days if not improving Disposition Disposition: Home, Self Care
[2021-10-07] MEDS: Ondansetron 4 MG/2 ML Vial IV (13:55)
[2021-10-07 14:01] LABS: Absolute Lymphocyte Count 0.62 X10^3/uL (0.83-4.51); Basophil# 0.01 X10^3/uL; Basophil% 0.1 % (0-1); Eosinophil# 0.02 X10^3/uL; Eosinophils% 0.2 % (0-5); Hematocrit 42.6 % (37-47); Hemoglobin 13.7 g/dL (12.0-15.0); Lymphocyte # 0.62 X10^3/ul (0.83-4.51); Lymphocyte % 7.6 % (19-41); Mean Corp Hgb Conc 32.2 g/dL (32-36); Mean Corpuscular Hgb 27.2 pg (27.0-32.0); Mean Corpuscular Volume 84.5 fL (81-99); Mean Platelet Vol. 9.4 fl (6.2-12.0); Monocyte# 0.44 X10^3/uL; Monocyte% 5.4 % (0-10); NRBC Flagged by Analyzer 0 % (0-5); Neutrophil # 7.02 X10^3/uL (2.7-7.7); Neutrophil % 86.2 % (47-70); Platelet Count 307 K/mm3 (150-450); RBC Distribution Width CV 13.7 % (11.6-14.6); RBC Distribution Width SD 41.9 fl (35.1-43.9); Red Blood Count 5.04 M/mm3 (4.2-5.4); White Blood Count 8.2 K/mm3 (4.4-11.0)
[2021-10-07] MEDS: Famotidine 200 MG/20 ML MDV 20 MG in 0.9% Normal Saline (Pres. free 8 ML 300 MG IV (14:14)
[2021-10-07 14:16] LABS: AST(SGOT) 21 U/L (15-37); Alanine Aminotransfer ALT/SGPT 26 U/L (13-56); Albumin, Serum 3.7 g/dL (3.2-5.0); Alkaline Phosphatase 85 U/L (45-117); Anion Gap 9 (5-15); BUN 24 mg/dL (7-18); BUN/Creat Ratio 17.9 RATIO (10-20); Bilirubin, Direct 0.21 mg/dL (0.00-0.30); Calcium,Total 9.2 mg/dL (8.5-10.1); Chloride 105 mmol/L (98-107); Creatinine, Serum 1.34 mg/dL (0.55-1.02); EST Glomerular Filtration Rate 42 mL/min (>60); Est Glom Filt Rate - Afr Amer 51 mL/min (>60); Estimated Creatinine Clearance 32.66 ml/min; Globulin 3.7 g/dL (2.2-4.2); Glucose 140 mg/dL (74-106); Lipase 78 U/L (73-393); Potassium 2.9 mmol/L (3.5-5.1); Protein, Total 7.4 g/dL (6.4-8.2); Sodium Level 138 mmol/L (136-145)
[2021-10-07] MEDS: Potassium Chloride Oral Soln 20 MEQ/15 ML UDC 40 MEQ PO (14:45)
[2021-10-07 15:32] VITALS: BP 139/66; PULSE 79; RESP 18; TEMP 36.6; O2SAT 99
== END 2021-10-07 15:37 | disposition home or self-care (01) ==
PROVIDERS: Emergency Provider Emergency Medicine; PCP Family Medicine; Visit Provider Emergency Medicine
DX: A08.4 Viral intestinal infection, unspecified (principal); E87.6 Hypokalemia
CPT/HCPCS: 80048; 80076; 83690; 85025; 96361; 96374; 99282; J7030; A4216; J2405; J3490

== ENCOUNTER → 2021-10-31 | Outpatient (CLI) | payer MEDICARE, SELFPAY ==
--- NOTE | 2021-10-31 10:16 | BI_ITS ---
MAMMOGRAPHY - BILATERAL SCREENING REASON FOR EXAM: Female, 66 years old. Routine annual screening examination. PERTINENT HISTORY: Non-contributory. TECHNIQUE: Digital bilateral breast flakito (3D mammographic acquisition) in the CC and MLO projections. 2-D mediolateral oblique (MLO) and craniocaudad (CC) views of both breasts were obtained. CAD: Full Field Digital Mammography with Computer Added Detection was performed. COMPARISON: Screening mammogram from 10/12/2020, 10/12/2019, 05/13/2017, 04/12/2015. FINDINGS: Breast Composition: There are scattered areas of fibroglandular density. There are no dominant masses or suspicious calcifications. No other significant abnormalities are identified. There has been no significant change since the prior study. BI/SCRN MAMM (CAD)W/FLAKITO BILAT IMPRESSION: Stable bilateral screening mammogram. Yearly follow-up mammogram recommended. (A) ASSESSMENT CATEGORY: BIRADS Category 1: Negative. A letter regarding these results will be sent to the patient by the facility within 30 days. Approximately 10% of breast cancers are not detected by mammography. A normal mammogram should not delay biopsy of a clinically suspicious abnormality. [id number] Electronically Signed: Alfred Goodwin, at 18:28 EDT ,
--- NOTE | 2021-10-31 10:21 | BD_ITS ---
STUDY: DUAL ENERGY X-RAY ABSORPTIOMETRY / DXA REASON FOR EXAM: Female, 66 years old. M85.89. The patient is postmenopausal. TECHNIQUE: Bone Mineral Density (BMD) measurements of lumbar spine and bilateral hips were obtained. COMPARISON: Comparison is made with prior study of 10/12/2019. FINDINGS: Lumbar Spine (L1-L4): g/cm2 (0.864) / T-score (-1.7) / Z-score (0.2) Findings are suggestive of osteopenia with a moderate fracture risk. Left Femur Total: g/cm2 (0.770) / T-score (-1.4) / Z-score (-0.1) Left Femoral Neck: g/cm2 (0.679) / T-score (-1.5) / Z-score (0.1) Right Femur Total: g/cm2 (0.833) / T-score (-0.9) / Z-score (0.4) Right Femoral Neck: g/cm2 (0.625) / T-score (-2.0) / Z-score (-0.4) The T-Scores on the most recent prior examination were: Lumbar Spine (L1-L4): There has been worsening of bone density since the previous examination. Left Femur Total: which represents an improvement of 0.8%. Right Femur Total: which represents an improvement of 1.5%. BD/Dexa Bone Density Study IMPRESSION: The patient is considered osteopenic as outlined below according to World [place] Organization (WHO) criteria with a moderate fracture risk. There has been improvement of bone density since the previous examination. Reference Information: The T-score is the number of standard deviations above or below the standard which is normal for young adults at their peak bone mineral density. The World Health Organization (WHO) interprets the T-scores as follows: Above -1 Normal bone density Between -1 and -2.5 Osteopenia Equal to / or below -2.5 Osteoporosis As a practical clinical guideline, osteopenia may be graded as follows: Mild -1 through -1.5 Moderate -1.6 through -2.0 Severe -2.1 through -2.4 The Z-score is the number of standard deviations above or below age-matched controls. A Z-score of less than -1.5 would be considered abnormal. References: 1. NIH Osteoporosis and Related Bone Diseases www osteo.org 2. International Society for Clinical Densitometry www iscd.org 3. National Osteoporosis Foundation www nof.org Electronically Signed: Zach Muñoz MD at 10:52 EDT ,
== END | disposition home or self-care (01) ==
LOC: OPBD 10:13
PROVIDERS: PCP Family Medicine; Visit Provider Family Medicine
DX: M85.89 Other specified disorders of bone density and structure, multiple sites (principal); Z12.31 Encounter for screening mammogram for malignant neoplasm of breast
CPT/HCPCS: 77063; 77067; 77080

== ENCOUNTER → 2022-01-23 | Outpatient (CLI) | payer MEDICARE, SELFPAY ==
[2022-01-23 10:17] LABS: Hematocrit 39.9 % (37-47); Hemoglobin 12.5 g/dL (12.0-15.0); Mean Corp Hgb Conc 31.3 g/dL (32-36); Mean Corpuscular Hgb 26.9 pg (27.0-32.0); Mean Corpuscular Volume 85.8 fL (81-99); Mean Platelet Vol. 9.9 fl (6.2-12.0); Platelet Count 288 K/mm3 (150-450); RBC Distribution Width CV 13.5 % (11.6-14.6); RBC Distribution Width SD 42.6 fl (35.1-43.9); Red Blood Count 4.65 M/mm3 (4.2-5.4); White Blood Count 6.3 K/mm3 (4.4-11.0)
[2022-01-23 11:04] LABS: AST(SGOT) 18 U/L (15-37); Alanine Aminotransfer ALT/SGPT 25 U/L (13-56); Albumin, Serum 3.4 g/dL (3.2-5.0); Alkaline Phosphatase 78 U/L (45-117); Anion Gap 6 (5-15); BUN 17 mg/dL (7-18); CPK Total, Creatine Kinase 77 U/L (26-192); Calcium,Total 9.1 mg/dL (8.5-10.1); Chloride 105 mmol/L (98-107); EST Glomerular Filtration Rate 59 mL/min (>60); Est Glom Filt Rate - Afr Amer 71 mL/min (>60); Globulin 3.5 g/dL (2.2-4.2); Glucose 94 mg/dL (74-106); Magnesium 2.3 mg/dL (1.6-2.6); Potassium 4.3 mmol/L (3.5-5.1); Protein, Total 6.9 g/dL (6.4-8.2); Sodium Level 139 mmol/L (136-145); Thyroid Stim Hormone (TSH) 1.23 uIU/mL (0.358-3.74); Troponin-I HS 4 pg/mL (3.0-54.0)
== END | disposition home or self-care (01) ==
PROVIDERS: PCP Family Medicine; Referring Provider Family Medicine; Visit Provider Family Medicine
DX: E03.9 Hypothyroidism, unspecified (principal); R00.2 Palpitations; R53.83 Other fatigue; R07.9 Chest pain, unspecified
CPT/HCPCS: 36415; 80053; 82550; 83735; 84439; 84443; 84481; 84484; 85027

== ENCOUNTER → 2022-01-25 | Outpatient (CLI) | payer MEDICARE, SELFPAY ==
--- NOTE | 2022-01-25 14:30 | CT_ITS ---
STUDY: CT BRAIN WITHOUT CONTRAST REASON FOR EXAM: Female, 66 years old. HEADACHES/ POST CONCUSSIVE SYNDROME RADIATION DOSAGE (If Supplied By Facility): CTDIvol = ( 47.06 ) mGy, DLP = ( 855.03 ) mGycm TECHNIQUE: Transaxial CT imaging of the brain was performed without administration of intravenous contrast material. Individualized dose optimization techniques were used for this CT. COMPARISON: Comparison is made with prior study 09/04/2020. FINDINGS: Normal soft tissue structures. Normal calvarium. There is mild cerebral atrophy with widening of the extra-axial spaces and ventricular dilatation. Normal white matter tracts of the cerebral hemispheres. Normal basal ganglia and thalami. Normal brainstem. Normal cerebellum. There is no intracranial hemorrhage. There are no findings of an acute ischemic infarction. Normal visualized paranasal sinuses. CT/Brain/Head without Contrast IMPRESSION: Chronic involutional changes of the brain. Electronically Signed: Zach Muñoz MD at 14:52 EDT ,
== END | disposition home or self-care (01) ==
PROVIDERS: PCP Family Medicine; Visit Provider Family Medicine
DX: F07.81 Postconcussional syndrome (principal); G43.109 Migraine with aura, not intractable, without status migrainosus
CPT/HCPCS: 70450

== ENCOUNTER → 2022-01-29 | Outpatient (CLI) | payer MEDICARE, SELFPAY | END | disposition home or self-care (01) | LOC: PSN 12:12 | PROVIDERS: PCP Family Medicine; Referring Provider Family Medicine; Visit Provider Family Medicine | DX: R00.2 Palpitations (principal) | CPT/HCPCS: 93225; 93226 ==

== ENCOUNTER 2022-03-01 18:21 | Emergency (ER) | payer MEDICARE, SELFPAY ==
[2022-03-01] VITALS (8 sets, daily range): BP systolic 128–150; BP diastolic 64–122; PULSE 75–89; RESP 13–22; TEMP 35.8; O2SAT 94–99; BMI 37.3
--- NOTE | 2022-03-01 19:16 | EKG12_ITS ---
Test Reason : CP Blood Pressure : / mmHG Vent. Rate : 087 BPM Atrial Rate : 087 BPM P-R Int : 170 ms QRS Dur : 084 ms QT Int : 398 ms P-R-T Axes : 046 023 062 degrees QTc Int : 478 ms Normal sinus rhythm Low voltage QRS Borderline ECG Confirmed by ILIANA DAUGHERTY, NEREIDA ([id number]), department editor DIANE WANG ([id number]) on 03/04/2022 9:37:13 AM Referred By: TONIE Confirmed By:NEREIDA BARRIENTOS MD
--- NOTE | 2022-03-01 19:30 | RAD_ITS ---
STUDY: X-RAY CHEST REASON FOR EXAM: Female, 66 years old. Chest pain. TECHNIQUE: Single AP portable view of the chest. COMPARISON: 09/04/2020 and 05/01/2018. FINDINGS: The lungs are clear and expanded. There is no demonstrated pleural abnormality. Normal size heart. Normal mediastinum and sharyn. Normal visualized pulmonary arteries. Normal visualized aortic arch and descending thoracic aorta. There are diffuse degenerative changes of the visualized thoracic spine. There is degenerative osteoarthritis of the bilateral shoulders. There is no demonstrated abnormality of the visualized soft tissue structures of the upper abdomen. RAD/Chest 1 View (Portable) IMPRESSION: Degenerative changes, as described above. No demonstrated acute cardiopulmonary process. Electronically Signed: Stephen Landa DO at 19:49 EDT ,
[2022-03-01 19:35] LABS: Absolute Lymphocyte Count 1.65 X10^3/uL (0.83-4.51); Absolute Neutrophil Count 6.3 X10^3/uL (2.0-7.7); Basophil# 0.05 X10^3/uL; Basophil% 0.6 % (0-1); Eosinophil# 0.12 X10^3/uL; Eosinophils% 1.3 % (0-5); Hematocrit 38.3 % (37-47); Hemoglobin 12.5 g/dL (12.0-15.0); Lymphocyte # 1.65 X10^3/ul (0.83-4.51); Lymphocyte % 18.4 % (19-41); Mean Corp Hgb Conc 32.6 g/dL (32-36); Mean Corpuscular Hgb 28.1 pg (27.0-32.0); Mean Corpuscular Volume 86.1 fL (81-99); Mean Platelet Vol. 9.3 fl (6.2-12.0); Monocyte# 0.87 X10^3/uL; Monocyte% 9.7 % (0-10); NRBC Flagged by Analyzer 0 % (0-5); Neutrophil # 6.26 X10^3/uL (2.7-7.7); Neutrophil % 69.6 % (47-70); Platelet Count 293 K/mm3 (150-450); RBC Distribution Width CV 13.8 % (11.6-14.6); Red Blood Count 4.45 M/mm3 (4.2-5.4)
[2022-03-01 19:52] LABS: Anion Gap 7 (5-15); BUN 23 mg/dL (7-18); BUN/Creat Ratio 19.7 RATIO (10-20); Calcium,Total 9.7 mg/dL (8.5-10.1); Chloride 106 mmol/L (98-107); Creatinine, Serum 1.17 mg/dL (0.55-1.02); EST Glomerular Filtration Rate 49 mL/min (>60); Est Glom Filt Rate - Afr Amer 59 mL/min (>60); Glucose 114 mg/dL (74-106); Potassium 4.3 mmol/L (3.5-5.1); Sodium Level 142 mmol/L (136-145); Troponin-I HS 5 pg/mL (3.0-54.0)
--- NOTE | 2022-03-01 20:03 | ED.VIS.CHEST ---
HPI History of Present Illness Chief Complaint: Chest Pain Narrative Narrative: 66-year-old female presenting with chest pain and shortness of breath which she states has had for several weeks. She describes it as intermittent. She describes the pain as pressure. Sometimes this does radiate into the neck. She states that she does feel somewhat short of breath with it. She states she does not have any cardiac history other than tachycardia. She does express to me that she has a history of anxiety as well and she is on Ativan as needed for this. She recently wore a Holter monitor which only showed episodes of sinus tachycardia without any dysrhythmias. This was performed by her primary care physician. She has follow-up in April with cardiology. She states that she also gets fatigued with heavy exertion such as climbing a ladder or briskly working. She can get chest pain even when she is at rest. She denies fever, chills, cough. She does describe generalized weakness. She does not have any orthopnea or lower extremity edema. She states she has borderline diabetes, hypothyroidism, hyperlipidemia. She is managed for these things. She states she is lost weight and I got ahead of the diabetes. She is on Lipitor for her cholesterol. She states her last stress test was many years ago. No history of DVT/PE and no risk factors. [facility] Medical History Anemia Depression Impingement syndrome of right shoulder Right shoulder pain Severe headache Shoulder pain Skin cancer Viral syndrome Home Medications atorvastatin 10 mg tablet (Lipitor) 10 mg PO QHS 12/28/13 [History Last Taken Unknown] escitalopram oxalate 20 mg tablet (Lexapro) 20 mg PO DAILY 12/28/13 [History Last Taken Unknown] famotidine 20 mg tablet (Pepcid) 20 mg PO BID 12/28/13 [History Last Taken Unknown] metoprolol succinate 25 mg tablet,extended release 24 hr 25 mg PO DAILY 12/28/13 [History Last Taken Unknown] nortriptyline 25 mg capsule 35 mg PO QHS 12/28/13 [History Last Taken Unknown] pantoprazole 20 mg tablet,delayed release (Protonix) 40 mg PO DAILY 09/09/17 [History Last Taken Unknown] liothyronine 5 mcg tablet 5 mcg PO BID 03/10/18 [History Last Taken Unknown] levothyroxine 50 mcg tablet 50 mg PO DAILY 05/07/19 [History Last Taken Unknown] lorazepam 0.5 mg tablet 0.5 mg PO DAILY PRN Anxiety 09/01/20 [History Last Taken Unknown] nortriptyline 10 mg capsule 10 mg PO DAILY 03/01/22 [History Last Taken Unknown] Allergy/AdvReac Type Severity Reaction Status Date / Time adhesive tape Allergy Rash Verified 03/01/22 18:53 Penicillins Allergy Hives Verified 03/01/22 18:53 Surgical History History of repair of ACL history of right hand surgery Social History Smoking Status: Never smoker alcohol intake: never ROS ROS ED Constitutional Constitutional ED: Denies chills or fever(s) Eyes Eyes: Denies none ENT ENT ED: Denies rhinorrhea or sore throat Cardiovascular Cardiovascular: Reports as per HPI Respiratory/Chest Respiratory/Chest: Reports dyspnea; Denies cough Gastrointestinal Gastrointestinal: Denies abdominal pain or constipation Genitourinary Genitourinary ED: Denies dysuria or hematuria Musculoskeletal Musculoskeletal: Denies arthralgias or back pain Integumentary Denies abscess Neurologic Neurologic: Denies headache(s) or paresthesias Psychiatric Psychiatric: Reports anxiety; Denies depression, suicidal ideation or suicidal thoughts EXAM Physical Exam Const Vital Signs: 03/01/22 18:22 03/01/22 18:49 03/01/22 18:50 Temperature 96.5 F L Temperature Source Temporal Pulse Rate 89 85 Respiratory Rate 18 14 Respiratory Effort Normal Non-Labored Blood Pressure 132/74 H 150/75 H Blood Pressure Mean 93 100 Pulse Ox 98 99 Oxygen Delivery Method Room Air Room Air 03/01/22 19:19 03/01/22 19:25 03/01/22 20:01 Temperature Temperature Source Pulse Rate 77 82 Respiratory Rate 13 18 Respiratory Effort Blood Pressure 128/76 H 141/122 H Blood Pressure Mean 93 128 Pulse Ox 98 97 97 Oxygen Delivery Method Room Air Room Air Room Air 03/01/22 21:06 03/01/22 22:00 Temperature Temperature Source Pulse Rate 77 75 Respiratory Rate 22 H 16 Respiratory Effort Blood Pressure 133/64 H 144/72 H Blood Pressure Mean 87 96 Pulse Ox 97 95 Oxygen Delivery Method Room Air Room Air Positive well nourished General Appearance ED: NAD; Negative for pallor HEENT Reports moist mucous membranes normocephalic and atraumatic Eyes PERRL and EOMs intact bilaterally Chest Wall inspection of chest normal Resp normal respiratory effort and clear to auscultation bilaterally Auscultation: Negative for rales, rhonchi or wheezes Cardio regular rate and regular rhythm GI normal to inspection, nondistended, normoactive bowel sounds Neuro oriented x3 and CN's II-XII intact bilaterally Sensorium / Orientation: awake Motor Exam: strength 5/5 throughout Psych mental status grossly normal Skin no rashes or lesions noted General Skin Exam: Negative for jaundice or pallor Heart Score History: Slightly/Non-Suspicious ECG: Normal Age: >/= 65 years Risk Factors: 1 or 2 Risk Factors Score: 3 MDM MDM MDM Narrative Medical decision making narrative: Patient presenting with palpitations and chest pain as well as some shortness of breath for several weeks. He is already worn a Holter monitor. She does not have any cardiac history other than tachycardia she states. Patient EKG is normal sinus rhythm with a ventricular rate of 87 bpm without sign of ischemic change or dysrhythmia on my interpretation. Chest x-ray my interpretation shows no acute cardiopulmonary process and the radiologist agree. CBC is within normal limits. Creatinine near baseline at 1.17. Electrolytes are normal.. Glucose slightly elevated at 114. High-sensitivity troponin is 5. Patient is PERC negative. I will obtain a delta troponin. Delta troponin is obtained and is still 5. Given there is no significant interval change and she had a negative work-up I feel she stable for discharge home. Patient counseled on return precautions. Recommended to follow-up with the PCP on an outpatient basis. Impression: 1. Chest pain 2. Palpitation 3. Dyspnea Lab Data Attestation: I reviewed the patient's lab results. Labs: Laboratory Results - last 24 hr 03/01/22 03/01/22 03/01/22 19:25 19:25 21:25 WBC 9.0 RBC 4.45 Hgb 12.5 Hct 38.3 MCV 86.1 MCH 28.1 MCHC 32.6 RDW Std Deviation 43.0 RDW Coeff of [place] 13.8 Plt Count 293 MPV 9.3 Immature Gran % (Auto) 0.400 Neut % (Auto) 69.6 Lymph % (Auto) 18.[address] [place] % (Auto) 9.7 Eos % (Auto) 1.3 Baso % (Auto) 0.6 Absolute Neuts (auto) 6.3 Absolute Lymphs (auto) 1.65 Nucleated RBC % 0 Sodium 142 Potassium 4.3 Chloride 106 Carbon Dioxide 29.0 Anion Gap 7 BUN 23 H Creatinine 1.17 H Estim Creat Clear Calc 36.90 Est GFR (MDRD) Af Amer 59 L Est GFR (MDRD) Non-Af 49 L BUN/Creatinine Ratio 19.7 Glucose 114 H Calcium 9.7 Troponin I High Sens 5 5 Radiography Diagnostic Testing: Clinical Impression(s) from Imaging Studies Chest X-Ray 03/01/22 19:30 IMPRESSION: Degenerative changes, as described above. No demonstrated acute cardiopulmonary process. Electronically Signed: Stephen Landa DO at 19:49 EDT Reading Location ID and State: [address] [place] [address] Tel [phone], Service support , Discharge Plan Triage Chief Complaint: Chest Pain ED Provider: Yanick Dai Dx/Rx/DC Orders Prescriptions: No Action pantoprazole [Protonix] 20 mg tablet,delayed release (DR/EC) 40 mg PO DAILY atorvastatin [Lipitor] 10 MG tablet 10 mg PO QHS nortriptyline 25 MG capsule 35 mg PO QHS Label Comments: famotidine [Pepcid] 20 MG tablet 20 mg PO BID metoprolol succinate 25 MG tablet 25 mg PO DAILY escitalopram oxalate [Lexapro] 20 MG tablet 20 mg PO DAILY liothyronine 5 MCG tablet 5 mcg PO BID levothyroxine 50 MCG tablet 50 mg PO DAILY Label Comments: TAKE 1 TABLET BY MOUTH ONCE DAILY lorazepam 0.5 MG tablet 0.5 mg PO DAILY PRN (Reason: Anxiety) nortriptyline 10 mg Capsule 10 mg PO DAILY Primary Care Provider: Sosa Chandler Referrals: Sosa Chandler DO [Primary Care Provider] -
[2022-03-01 21:56] LABS: Troponin-I HS 5 pg/mL (3.0-54.0)
== END 2022-03-01 22:22 | disposition home or self-care (01) ==
PROVIDERS: Emergency Provider Student in an Organized Health Care Education/Training Program; PCP Family Medicine; Visit Provider Student in an Organized Health Care Education/Training Program
DX: R07.9 Chest pain, unspecified (principal); F41.9 Anxiety disorder, unspecified; R00.2 Palpitations; R06.09 Other forms of dyspnea; Z79.899 Other long term (current) drug therapy
CPT/HCPCS: 71045; 80048; 84484; 85025; 93005; 99285; A4216

== ENCOUNTER → 2022-04-04 | Outpatient (CLI) | payer MEDICARE, SELFPAY ==
--- NOTE | 2022-04-04 06:29 | ECHOCS_ITS ---
Reason For Study: CHEST PAIN Procedure This was a 2D Doppler, Color Flow transthoracic echocardiogram. Contrast injection was performed. For closer evaluation of LV APEX. Exam performed in department. Left Ventricle Normal LV size. 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 Left ventricular systolic function is normal. The estimated ejection fraction is 70 %. No evidence for diastolic dysfunction. No regional wall motion abnormalities noted. Right Ventricle Normal RV size. Normal systolic function. Atria Normal left atrium. Normal right atrium. No doppler evidence for ASD. Mitral Valve There is no mitral annular calcification. Normal mitral valve. Trivial mitral valve insufficiency. Tricuspid Valve Normal tricuspid valve. Trivial tricuspid valve insufficiency. Unable to estimate RV systolic pressure due to insufficient tricuspid regurgitant envelope. Aortic Valve Trisinus/trileaflet aortic valve. Mild focal aortic valve calcification. Trivial aortic valve insufficiency. Pulmonic Valve The pulmonic valve is not well visualized. Great Vessels Normal sized aortic root. Pericardium/Pleural No pericardial effusion. Medication Diluted definity 2.0ml given slow IV push to enhance endocardial definition. MMode/2D Measurements & Calculations LVIDd: 4.3 cm IVSd: 1.0 cm Ao root diam: 3.4 cm LVIDs: 2.5 cm LVPWd: 0.96 cm RVDd: 2.3 cm FS: 42.1 % LAV(MOD-bp): 42.6 ml LA A4 area: 16.2 cm2 LA dimension(2D): 3.8 cm LAV(MOD-bp) Indexed: 22.2 ml/m2 LAV(MOD-sp2): 41.6 ml LAV(MOD-sp4): 41.5 ml RA A4 area: 14.2 cm2 Time Measurements MV dec time: 0.25 sec Doppler Measurements & Calculations MV E max alan: 56.9 cm/sec Lat Peak E' Alan: 11.6 cm/sec Med Peak E' Alan: 4.7 cm/sec MV A max alan: 105.3 cm/sec E/E' lat: 4.9 E/E' med: 12.1 MV E/A: 0.54 MV dec slope: 224.5 cm/sec2 Ao V2 max: 149.3 cm/sec AI max alan: 427.9 cm/sec Ao max P.9 mmHg AI max P.2 mmHg Ao V2 mean: 101.9 cm/sec AI dec slope: 253.1 cm/sec2 Ao mean P.7 mmHg AI P1/2t: 495.1 msec Ao V2 VTI: 29.7 cm LV V1 max: 124.6 cm/sec PA V2 max: 94.9 cm/sec LV V1 max P.2 mmHg LV V1 mean P.3 mmHg LV V1 mean: 85.1 cm/sec LV V1 VTI: 25.5 cm ECHO/Echo Complete W/ Contrast Interpretation Summary Contrast injection was performed. Left ventricular systolic function is normal. The estimated ejection fraction is 70 %. 2D echocardiographic images appearing compatible with a partially calcified lef t ventricular apical false tendon Trivial mitral valve insufficiency. Trivial tricuspid valve insufficiency. Mild focal aortic valve calcification. Trivial aortic valve insufficiency. Unable to estimate RV systolic pressure due to insufficient tricuspid regurgita nt envelope. No evidence for diastolic dysfunction. Ordering Physician: Monroe Bocanegra Referring Physician: Sosa Chandler Performed By: Aidee Ochoa, TOBY, RVT
--- NOTE | 2022-04-04 09:55 | STRESSREP_ITS ---
Stress Test Report Date: 04-04-2022 Procedure: Exercise tolerance test/imaging study Indications: Chest pain Consent: Per the patient Procedure: The patient exercised on a Terry protocol for 6 minutes completing Stage II achieving a peak heart rate of 134 bpm (87% predicted maximal heart rate) with resting blood pressure of 136/80 mmHg and a peak blood pressure 190/80 mmHg and a peak MET capacity of 7 METs. The baseline ECG demonstrated normal sinus rhythm. The peak exercise ECG demonstrated somatic/motion artifact with no obvious ECG changes. There were no cardiac dysrhythmias pretest, during exercise, or recovery. The functional capacity was considered average. There was left chest ache at peak exercise with spontaneous resolution recove ry. The examination was discontinued secondary to dyspnea. Impression: 1. Technically adequate (percent predicted maximal heart rate greater than 85%) exercise tolerance test 2. Peak exercise ECG with somatic/motion artifact with no obvious ECG change 3. There were no cardiac dysrhythmias pretest, during exercise, or recovery 4. Nuclear images pending Myocardial perfusion imaging study: Technique: The patient was injected with 14.1 mCi of technetium 99m Cardiolite and subsequently rest SPECT Cardiolite nuclear imaging was obtained in the horizontal long, vertical long, and short axis views. The patient exercised on a Terry protocol for 6 minutes completing Stage II achieving a peak heart rate of 134 bpm (87% predicted maximal heart rate) with resting blood pressure of 136/80 mmHg and a peak blood pressure 190/80 mmHg and a peak MET capacity of 7 METs. The patient was injected with 43.9 mCi of technetium 99m Cardiolite and subsequently stress SPECT Cardiolite nuclear imaging was obtained in the horizontal long, vertical long, and short axis views. A gated Cardiolite study at peak stress was obtained. Interpretation: Rest and stress SPECT Cardiolite nuclear imaging status post realignment, normalization, and attenuation correction, demonstrates the appearance of relative uniform tracer uptake and myocardial perfusion appearing within normal limits. There is end systolic thickening and brightening. The gated Cardiolite study demonstrates myocardial thickening and inward wall motion. The reported LVEF is 83%. Impression: 1. Rest and stress SPECT Cardiolite nuclear imaging demonstrate relative uniform tracer uptake and myocardial perfusion appearing within normal limits. 2. The gated Cardiolite study reports an LVEF of 83%. This note was generated with [id number] software. It may contain incorrect words, spelling, and punctuation that were not noted in checking the note before signing.
== END | disposition home or self-care (01) ==
PROVIDERS: PCP Family Medicine; Referring Provider Internal Medicine Cardiovascular Disease; Visit Provider Internal Medicine Cardiovascular Disease
DX: R07.9 Chest pain, unspecified (principal); I49.49 Other premature depolarization; R00.2 Palpitations; I10 Essential (primary) hypertension; E78.5 Hyperlipidemia, unspecified
CPT/HCPCS: 78452; 93017; 93306; A9500; Q9957; A4216; C8929

== ENCOUNTER 2022-08-12 05:24 | Emergency (ER) | payer MEDICARE, SELFPAY ==
[2022-08-12 05:25] VITALS: BP 122/71; PULSE 96; RESP 20; TEMP 37.1; O2SAT 99; BMI 40.4
--- NOTE | 2022-08-12 05:50 | EDS_ITS ---
HPI History of Present Illness Chief Complaint: Nausea/Vomiting/Diarrhea Informant: patient Narrative Narrative: Patient presents with nausea vomiting diarrhea and abdominal cramps. She states she started about 16 hours ago with some GI just upset. It then went into diarrhea. She has had watery diarrhea about every hour since. No blood seen. About 12 hours ago she vomited. She took a Zofran that she had at home and she was good for about 8 hours but then the vomiting restarted. She has not had fevers or chills. She gets cramping in the abdomen off and on. Its occurring in the left upper quadrant. She is on meds for GERD. She has had cholecystectomy but denies other intra-abdominal surgeries. She is not sure if she has had antibiotics in the last few months. She has not had fevers. No urinary symptoms. No back or flank pain. [facility] Medical History Anemia Depression Hiatal hernia History of depression History of left heart catheterization (LHC) (~08/13/07) Hx of familial combined hyperlipidemia Impingement syndrome of right shoulder Left knee pain Left leg pain Low back pain Right shoulder pain Severe headache Shoulder pain Sinusitis, acute SIRS (systemic inflammatory response syndrome) Skin cancer Viral syndrome Home Medications atorvastatin 10 mg tablet (Lipitor) 10 mg PO QHS 12/28/13 [History Last Taken Unknown] escitalopram oxalate 20 mg tablet (Lexapro) 20 mg PO DAILY 12/28/13 [History Last Taken Unknown] metoprolol succinate 25 mg tablet,extended release 24 hr 25 mg PO DAILY 12/28/13 [History Last Taken Unknown] levothyroxine 50 mcg tablet 50 mg PO DAILY 05/07/19 [History Last Taken Unknown] lorazepam 0.5 mg tablet 0.5 mg PO DAILY PRN Anxiety 09/01/20 [History Last Taken Unknown] aspirin 81 mg chewable tablet 81 mg PO DAILY #1 TAB 03/22/22 [Rx Last Taken Unknown] famotidine 20 mg tablet (Pepcid) 20 mg PO QHS 03/22/22 [History Last Taken Unknown] liothyronine 5 mcg tablet 5 mcg PO BID 03/22/22 [History Last Taken Unknown] nortriptyline 10 mg capsule 10 mg PO QHS 03/22/22 [History Last Taken Unknown] nortriptyline 25 mg capsule 25 mg PO QHS 03/22/22 [History Last Taken Unknown] pantoprazole 40 mg tablet,delayed release 40 mg PO DAILY 03/22/22 [History Last Taken Unknown] ondansetron 4 mg disintegrating tablet 4 mg PO Q8H PRN PRN Nausea #10 tabs 08/12/22 [Rx Last Taken Unknown] potassium chloride 10 mEq tablet,extended release 10 meq PO TID #9 tabs 08/12/22 [Rx Last Taken Unknown] promethazine 25 mg tablet 25 mg PO Q6H PRN PRN Nausea #10 TABLETS 08/12/22 [Rx Last Taken Unknown] Allergy/AdvReac Type Severity Reaction Status Date / Time adhesive tape Allergy Rash Verified 05/06/22 13:13 Penicillins Allergy Hives Verified 05/06/22 13:13 Family History Father Cancer Lung/Skin Mother CVA (cerebral vascular accident) Uncle Myocardial infarction Surgical History History of cholecystectomy History of hand surgery History of repair of ACL Social History Smoking Status: Never smoker alcohol intake: current details: Rare substance use type: does not use caffeine: No ROS ROS ED Constitutional Constitutional ED: Denies chills or fever(s) ENT ENT ED: Denies rhinorrhea or sore throat Cardiovascular Cardiovascular: Denies chest pain or palpitations Respiratory/Chest Respiratory/Chest: Denies cough or dyspnea Gastrointestinal Gastrointestinal: Reports abdominal pain, diarrhea, nausea and vomiting; Denies constipation or melena Genitourinary Genitourinary ED: Denies hematuria or urinary frequency Musculoskeletal Musculoskeletal: Denies back pain Integumentary Denies rash Neurologic Neurologic: Denies headache(s) Psychiatric Psychiatric: Reports anxiety and depression Endocrine Endocrinology: Denies polydipsia or polyuria Hematologic/Lymphatic Hematologic/Lymphatic: Denies easy bleeding or easy bruising Allergic/Immunologic Allergic/Immunologic ED: Denies urticaria EXAM Physical Exam Narrative Exam Narrative: Patient is awake alert. She is laying on bed holding emesis bag but no emesis is in place. Carries on a normal conversation. Nontoxic. HEENT: She does have some rather dry mucous membranes. Eyes show no icterus or notable pallor. Lungs are clear bilaterally. No pain with a deep breath. Saturations are normal at 99% on room air. Heart is regular. Has a rate about 90. No murmur gallop or rub. Peripheral pulses are normal. Abdomen is soft, mildly increased bowel sounds. It does not appear to be distended. She states she gets some pain in the left upper quadrant but there is no tenderness there or in any other area. No rebound or guarding. No mass. shows no suprapubic or CVA tenderness Skin shows no rash pallor or diaphoresis mottling. Extremities show no notable edema or tenderness. Neuro: Patient is awake alert appropriate with no focal deficit. Const Vital Signs: 08/12/22 05:25 Temperature 98.7 F Temperature Source Oral Pulse Rate 96 Respiratory Rate 20 H Blood Pressure 122/71 H Blood Pressure Mean 88 Pulse Ox 99 Oxygen Delivery Method Room Air MDM MDM MDM Narrative Medical decision making narrative: 06: 25 patient's recheck. She states the nausea is gone. She is feeling better. I let her know that her potassium was just a little bit low at 3.4. Creatinine was minimally up at 1.14. She does show signs of dehydration with an elevated BUN to creatinine ratio of 23.7. Liver function test and lipase look normal. We are awaiting further blood work. I will try a small dose of oral potassium to see if she will tolerate this. Patient CBC has now come back normal. Patient still feeling well. I will give her a little bit more IV fluids here per her request. I think that is reasonable. I think we can still get her home. She has a couple Zofran at home but I will write for Zofran and Phenergan so she has 2 options. She can use [id number] meds such as Pepto-Bismol if needed for diarrhea. I will write for some potassium. I will write for a small amounts of 10 mill equivalents to be spread out throughout the day. We discussed reasons to return which would be recurrent vomiting, weakness, blood in the stools pain fever or other concerns Lab Data Attestation: I reviewed the patient's lab results. Labs: Laboratory Results - last 24 hr 08/12/22 08/12/22 05:40 05:40 WBC 9.1 RBC 5.33 Hgb 14.3 Hct 44.7 MCV 83.9 MCH 26.8 L MCHC 32.0 RDW Std Deviation 43.2 RDW Coeff of Cristo 14.1 Plt Count 322 MPV 10.0 Immature Gran % (Auto) 0.700 Neut % (Auto) 86.3 H Lymph % (Auto) 5.4 L [place] % (Auto) 7.0 Eos % (Auto) 0.3 Baso % (Auto) 0.3 Absolute Neuts (auto) 7.9 H Absolute Lymphs (auto) 0.49 L Nucleated RBC % 0 Sodium 136 Potassium 3.4 L Chloride 104 Carbon Dioxide 20.0 L Anion Gap 12 BUN 27 H Creatinine 1.14 H Estim Creat Clear Calc 36.14 Est GFR (MDRD) Af Amer 61 Est GFR (MDRD) Non-Af 50 L BUN/Creatinine Ratio 23.7 H Glucose 166 H Calcium 9.8 Total Bilirubin 0.80 AST 39 H ALT 55 Alkaline Phosphatase 92 Total Protein 7.9 Albumin 3.8 Globulin 4.1 Albumin/Globulin Ratio 0.9 Lipase 161 Discharge Plan Triage Chief Complaint: Nausea/Vomiting/Diarrhea ED Provider: Lester Mario Dx/Rx/DC Orders Clinical Impression: Nausea vomiting and diarrhea, Dehydration, Hypokalemia Instructions: ED Diet Vomiting Diarrhea Prescriptions: New promethazine [promethazine] 25 mg tablet 25 mg PO Q6H PRN PRN (Reason: Nausea) Qty: 10 0RF ondansetron [ondansetron] 4 mg tablet,disintegrating 4 mg PO Q8H PRN PRN (Reason: Nausea) Qty: 10 0RF potassium chloride 10 mEq tablet extended release 10 meq PO TID Qty: 9 0RF No Action pantoprazole 40 mg tablet,delayed release (DR/EC) 40 mg PO DAILY aspirin 81 mg tablet,chewable 81 mg PO DAILY Qty: 1 0RF atorvastatin [Lipitor] 10 MG tablet 10 mg PO QHS metoprolol succinate 25 MG tablet 25 mg PO DAILY escitalopram oxalate [Lexapro] 20 MG tablet 20 mg PO DAILY famotidine [Pepcid] 20 mg tablet 20 mg PO QHS levothyroxine 50 MCG tablet 50 mg PO DAILY Label Comments: TAKE 1 TABLET BY MOUTH ONCE DAILY lorazepam 0.5 MG tablet 0.5 mg PO DAILY PRN (Reason: Anxiety) nortriptyline 10 mg capsule 10 mg PO QHS nortriptyline 25 mg capsule 25 mg PO QHS Label Comments: liothyronine 5 mcg tablet 5 mcg PO BID Primary Care Provider: Sosa Chandler Referrals: Sosa Chandler DO [Primary Care Provider] - 1-2 Days if not improving Disposition Disposition: Home, Self Care
[2022-08-12] MEDS: 0.9% Normal Saline 1,000 ML 1000 ML IV (05:52)
[2022-08-12] MEDS: Ondansetron 4 MG/2 ML Vial IV (05:55)
[2022-08-12] MEDS: Morphine 4 MG/ML Syringe IV (05:55)
[2022-08-12 06:06] LABS: Absolute Lymphocyte Count 0.49 X10^3/uL (0.83-4.51); Absolute Neutrophil Count 7.9 X10^3/uL (2.0-7.7); Basophil# 0.03 X10^3/uL; Basophil% 0.3 % (0-1); Eosinophil# 0.03 X10^3/uL; Eosinophils% 0.3 % (0-5); Hematocrit 44.7 % (37-47); Hemoglobin 14.3 g/dL (12.0-15.0); Lymphocyte # 0.49 X10^3/ul (0.83-4.51); Lymphocyte % 5.4 % (19-41); Mean Corpuscular Hgb 26.8 pg (27.0-32.0); Mean Corpuscular Volume 83.9 fL (81-99); Monocyte# 0.64 X10^3/uL; NRBC Flagged by Analyzer 0 % (0-5); Neutrophil # 7.88 X10^3/uL (2.7-7.7); Neutrophil % 86.3 % (47-70); POSITIVE DIFFERENTIAL YES; Platelet Count 322 K/mm3 (150-450); RBC Distribution Width CV 14.1 % (11.6-14.6); RBC Distribution Width SD 43.2 fl (35.1-43.9); Red Blood Count 5.33 M/mm3 (4.2-5.4); White Blood Count 9.1 K/mm3 (4.4-11.0)
[2022-08-12 06:24] LABS: ALB/GLOB Ratio 0.9 RATIO (0.9-2.4); AST(SGOT) 39 U/L (15-37); Alanine Aminotransfer ALT/SGPT 55 U/L (13-56); Albumin, Serum 3.8 g/dL (3.2-5.0); Alkaline Phosphatase 92 U/L (45-117); Anion Gap 12 (5-15); BUN 27 mg/dL (7-18); BUN/Creat Ratio 23.7 RATIO (10-20); Calcium,Total 9.8 mg/dL (8.5-10.1); Chloride 104 mmol/L (98-107); Creatinine, Serum 1.14 mg/dL (0.55-1.02); EST Glomerular Filtration Rate 50 mL/min (>60); Est Glom Filt Rate - Afr Amer 61 mL/min (>60); Estimated Creatinine Clearance 36.14 ml/min; Globulin 4.1 g/dL (2.2-4.2); Glucose 166 mg/dL (74-106); Lipase 161 U/L (73-393); Potassium 3.4 mmol/L (3.5-5.1); Protein, Total 7.9 g/dL (6.4-8.2); Sodium Level 136 mmol/L (136-145)
[2022-08-12] MEDS: Potassium Chloride Oral Tablet 20 MEQ PO (06:33)
[2022-08-12 06:38] LABS: Differential Indicated SCAN CRITERIA MET
== END 2022-08-12 07:42 | disposition home or self-care (01) ==
PROVIDERS: Emergency Provider Emergency Medicine; PCP Family Medicine; Visit Provider Emergency Medicine
DX: R11.2 Nausea with vomiting, unspecified (principal); R19.7 Diarrhea, unspecified; E86.0 Dehydration; E87.6 Hypokalemia
CPT/HCPCS: 80053; 83690; 85025; 96361; 96374; 96375; 99283; J7030; A4216; J2405

== ENCOUNTER 2022-08-15 12:49 | Emergency (ER) | payer MEDICARE, SELFPAY ==
[2022-08-15 12:50] VITALS: BP 126/75; PULSE 76; RESP 16; TEMP 36.3; O2SAT 99
[2022-08-15 13:15] VITALS: BMI 37.8
--- NOTE | 2022-08-15 13:20 | EDS_ITS ---
HPI History of Present Illness Chief Complaint: Diarrhea Narrative Narrative: Patient presents with diarrhea, lightheadedness. She was seen here few days ago and felt much better after IV fluids but diarrhea continued and she now feels dehydrated again. She feels lightheaded and somewhat weak. Nausea and vomiting have significantly improved she has no abdominal pain. [facility] Medical History Anemia Depression Hiatal hernia History of depression History of left heart catheterization (LHC) (~08/13/07) Hx of familial combined hyperlipidemia Impingement syndrome of right shoulder Left knee pain Left leg pain Low back pain Right shoulder pain Severe headache Shoulder pain Sinusitis, acute SIRS (systemic inflammatory response syndrome) Skin cancer Viral syndrome Home Medications atorvastatin 10 mg tablet (Lipitor) 10 mg PO QHS 12/28/13 [History Last Taken Unknown] escitalopram oxalate 20 mg tablet (Lexapro) 20 mg PO DAILY 12/28/13 [History Last Taken Unknown] metoprolol succinate 25 mg tablet,extended release 24 hr 25 mg PO DAILY 12/28/13 [History Last Taken Unknown] levothyroxine 50 mcg tablet 50 mg PO DAILY 05/07/19 [History Last Taken Unknown] lorazepam 0.5 mg tablet 0.5 mg PO DAILY PRN Anxiety 09/01/20 [History Last Taken Unknown] aspirin 81 mg chewable tablet 81 mg PO DAILY #1 TAB 03/22/22 [Rx Last Taken Unknown] famotidine 20 mg tablet (Pepcid) 20 mg PO QHS 03/22/22 [History Last Taken Unknown] liothyronine 5 mcg tablet 5 mcg PO BID 03/22/22 [History Last Taken Unknown] nortriptyline 10 mg capsule 10 mg PO QHS 03/22/22 [History Last Taken Unknown] nortriptyline 25 mg capsule 25 mg PO QHS 03/22/22 [History Last Taken Unknown] pantoprazole 40 mg tablet,delayed release 40 mg PO DAILY 03/22/22 [History Last Taken Unknown] ondansetron 4 mg disintegrating tablet 4 mg PO Q8H PRN PRN Nausea #10 tabs 08/12/22 [Rx Last Taken Unknown] potassium chloride 10 mEq tablet,extended release 10 meq PO TID #9 tabs 08/12/22 [Rx Last Taken Unknown] promethazine 25 mg tablet 25 mg PO Q6H PRN PRN Nausea #10 TABLETS 08/12/22 [Rx Last Taken Unknown] Allergy/AdvReac Type Severity Reaction Status Date / Time adhesive tape Allergy Rash Verified 08/15/22 12:52 Penicillins Allergy Hives Verified 08/15/22 12:52 Family History Father Cancer Lung/Skin Mother CVA (cerebral vascular accident) Uncle Myocardial infarction Surgical History History of cholecystectomy History of hand surgery History of repair of ACL Social History Smoking Status: Never smoker alcohol intake: current details: Rare substance use type: does not use caffeine: No ROS ROS ED ROS Narrative Past medical history: Reviewed Medications: Reviewed Social history: Noncontributory Review of systems: All systems negative except as indicated General: No fever. She feels lightheaded ENT: No upper airway congestion, normal voice Neck: No neck pain Cardiovascular: No chest pain Respiratory: No shortness of breath or cough Gastrointestinal: No abdominal pain. Diarrhea as in HPI Genitourinary: No dysuria Musculoskeletal: Denies myalgias no difficulty with ambulation Skin: No rash Neurological: No memory loss, confusion or any focal weakness EXAM Physical Exam Narrative Exam Narrative: Physical exam General: Well nourished, Well developed, No Acute Distress Head: Normocephalic, Atraumatic Eyes: Conjunctiva not pale ENT: Dry mucous membranes Neck: Supple, Nontender, No lymphadenopathy Cardiovascular: Regular rate, Regular rhythm Respiratory: No distress, CTA bilaterally Abdomen: Soft, Nontender, Nondistended Back: Nontender, Normal Inspection. Negative for: CVA tenderness Extremities: Nontender, No edema Skin: Normal color, No rash Neurological: Alert, Normal Strength, Normal Sensation Psychological: Normal affect Const Vital Signs: 08/15/22 12:50 Temperature 97.4 F L Temperature Source Temporal Pulse Rate 76 Respiratory Rate 16 Blood Pressure 126/75 H Blood Pressure Mean 92 Pulse Ox 99 Oxygen Delivery Method Room Air MDM MDM MDM Narrative Medical decision making narrative: A. Problems addressed Patient presents with diarrhea and dehydration, she likely has gastroenteritis, this is going around especially the norovirus. She is found to be slightly dehydrated again and IV fluids were given. She is significantly improved. I thought about other intra-abdominal pathologies like colitis diverticulitis and/or appendicitis but at this time she has no abdominal pain therefore I do not believe that she needs a CAT scan. She will be discharged in stable condition told to stay hydrated. She has some slight azotemia but it is not significantly changed from a few days ago. B. Amount and/or complexity of the data 1. CBC CMP were ordered and interpreted by me I discussed with who was in the room C. Risk of complications and/or morbidity Differential diagnosis: See above Lab Data Labs: Laboratory Results - last 24 hr 08/15/22 08/15/22 13:33 13:33 WBC 7.1 RBC 5.12 Hgb 13.7 Hct 42.9 MCV 83.8 MCH 26.8 L MCHC 31.9 L RDW Std Deviation 42.8 RDW Coeff of [place] 14.0 Plt Count 259 MPV 8.9 Immature Gran % (Auto) 0.400 Neut % (Auto) 66.6 Lymph % (Auto) 18.7 L [place] % (Auto) 12.1 H Eos % (Auto) 1.8 Baso % (Auto) 0.4 Absolute Neuts (auto) 4.8 Absolute Lymphs (auto) 1.33 Nucleated RBC % 0 Sodium 137 Potassium 3.6 Chloride 108 H Carbon Dioxide 21.0 Anion Gap 8 BUN 24 H Creatinine 1.04 H Estim Creat Clear Calc 39.61 Est GFR (MDRD) Af Amer 68 Est GFR (MDRD) Non-Af 56 L BUN/Creatinine Ratio 23.1 H Glucose 108 H Calcium 9.3 Total Bilirubin 0.40 AST 38 H ALT 100 H Alkaline Phosphatase 114 Total Protein 7.1 Albumin 3.3 Globulin 3.8 Albumin/Globulin Ratio 0.9 Discharge Plan Triage Chief Complaint: Diarrhea ED Provider: Monroe Underwood Dx/Rx/DC Orders Clinical Impression: Acute dehydration, Diarrhea Instructions: ED Dehydration (Adult) Prescriptions: No Action pantoprazole 40 mg tablet,delayed release (DR/EC) 40 mg PO DAILY aspirin 81 mg tablet,chewable 81 mg PO DAILY Qty: 1 0RF atorvastatin [Lipitor] 10 MG tablet 10 mg PO QHS metoprolol succinate 25 MG tablet 25 mg PO DAILY escitalopram oxalate [Lexapro] 20 MG tablet 20 mg PO DAILY famotidine [Pepcid] 20 mg tablet 20 mg PO QHS levothyroxine 50 MCG tablet 50 mg PO DAILY Label Comments: TAKE 1 TABLET BY MOUTH ONCE DAILY lorazepam 0.5 MG tablet 0.5 mg PO DAILY PRN (Reason: Anxiety) nortriptyline 10 mg capsule 10 mg PO QHS promethazine [promethazine] 25 mg tablet 25 mg PO Q6H PRN PRN (Reason: Nausea) Qty: 10 0RF ondansetron [ondansetron] 4 mg tablet,disintegrating 4 mg PO Q8H PRN PRN (Reason: Nausea) Qty: 10 0RF potassium chloride 10 mEq tablet extended release 10 meq PO TID Qty: 9 0RF nortriptyline 25 mg capsule 25 mg PO QHS Label Comments: liothyronine 5 mcg tablet 5 mcg PO BID Primary Care Provider: Sosa Chandler Referrals: Sosa Chandler DO [Primary Care Provider] - 3-5 Days Disposition Disposition: Home, Self Care
[2022-08-15 13:42] LABS: Absolute Lymphocyte Count 1.33 X10^3/uL (0.83-4.51); Absolute Neutrophil Count 4.8 X10^3/uL (2.0-7.7); Basophil# 0.03 X10^3/uL; Basophil% 0.4 % (0-1); Eosinophil# 0.13 X10^3/uL; Eosinophils% 1.8 % (0-5); Hematocrit 42.9 % (37-47); Hemoglobin 13.7 g/dL (12.0-15.0); Lymphocyte # 1.33 X10^3/ul (0.83-4.51); Lymphocyte % 18.7 % (19-41); Mean Corp Hgb Conc 31.9 g/dL (32-36); Mean Corpuscular Hgb 26.8 pg (27.0-32.0); Mean Corpuscular Volume 83.8 fL (81-99); Mean Platelet Vol. 8.9 fl (6.2-12.0); Monocyte# 0.86 X10^3/uL; Monocyte% 12.1 % (0-10); NRBC Flagged by Analyzer 0 % (0-5); Neutrophil # 4.75 X10^3/uL (2.7-7.7); Neutrophil % 66.6 % (47-70); Platelet Count 259 K/mm3 (150-450); RBC Distribution Width SD 42.8 fl (35.1-43.9); Red Blood Count 5.12 M/mm3 (4.2-5.4); White Blood Count 7.1 K/mm3 (4.4-11.0)
[2022-08-15 13:56] LABS: ALB/GLOB Ratio 0.9 RATIO (0.9-2.4); AST(SGOT) 38 U/L (15-37); Alanine Aminotransfer ALT/SGPT 100 U/L (13-56); Albumin, Serum 3.3 g/dL (3.2-5.0); Alkaline Phosphatase 114 U/L (45-117); Anion Gap 8 (5-15); BUN 24 mg/dL (7-18); BUN/Creat Ratio 23.1 RATIO (10-20); Calcium,Total 9.3 mg/dL (8.5-10.1); Chloride 108 mmol/L (98-107); Creatinine, Serum 1.04 mg/dL (0.55-1.02); EST Glomerular Filtration Rate 56 mL/min (>60); Est Glom Filt Rate - Afr Amer 68 mL/min (>60); Estimated Creatinine Clearance 39.61 ml/min; Globulin 3.8 g/dL (2.2-4.2); Glucose 108 mg/dL (74-106); Potassium 3.6 mmol/L (3.5-5.1); Protein, Total 7.1 g/dL (6.4-8.2); Sodium Level 137 mmol/L (136-145)
[2022-08-15] MEDS: 0.9% Normal Saline 1,000 ML 1000 ML IV (14:01)
== END 2022-08-15 14:43 | disposition home or self-care (01) ==
PROVIDERS: Emergency Provider Emergency Medicine; PCP Family Medicine; Visit Provider Emergency Medicine
DX: E86.0 Dehydration (principal); R19.7 Diarrhea, unspecified; E78.49 Other hyperlipidemia; F32.A Depression, unspecified; Z79.899 Other long term (current) drug therapy
CPT/HCPCS: 80053; 85025; 96360; 99283; J7030

== ENCOUNTER → 2022-09-20 | Outpatient (CLI) | payer MEDICARE, SELFPAY ==
[2022-09-20 10:24] LABS: Absolute Lymphocyte Count 1.52 X10^3/uL (0.83-4.51); Absolute Neutrophil Count 3.5 X10^3/uL (2.0-7.7); Basophil# 0.06 X10^3/uL; Eosinophil# 0.18 X10^3/uL; Eosinophils% 3.1 % (0-5); Hematocrit 40.7 % (37-47); Hemoglobin 12.5 g/dL (12.0-15.0); Lymphocyte # 1.52 X10^3/ul (0.83-4.51); Lymphocyte % 26.5 % (19-41); Mean Corp Hgb Conc 30.7 g/dL (32-36); Mean Corpuscular Hgb 27.2 pg (27.0-32.0); Mean Corpuscular Volume 88.5 fL (81-99); Mean Platelet Vol. 10.2 fl (6.2-12.0); Monocyte# 0.46 X10^3/uL; NRBC Flagged by Analyzer 0 % (0-5); Neutrophil # 3.49 X10^3/uL (2.7-7.7); Neutrophil % 60.9 % (47-70); Platelet Count 295 K/mm3 (150-450); RBC Distribution Width CV 14.2 % (11.6-14.6); RBC Distribution Width SD 45.3 fl (35.1-43.9); White Blood Count 5.7 K/mm3 (4.4-11.0)
[2022-09-20 11:07] LABS: Hemoglobin A1c 5.8 % (3.8-5.6)
[2022-09-20 11:08] LABS: Vitamin B12 1277 pg/mL (211-911); Vitamin D,25 Hydroxy 59.1 ng/mL
[2022-09-20 11:24] LABS: AST(SGOT) 24 U/L (15-37); Alanine Aminotransfer ALT/SGPT 36 U/L (13-56); Albumin, Serum 3.4 g/dL (3.2-5.0); Alkaline Phosphatase 107 U/L (45-117); Anion Gap 3 (5-15); BUN 19 mg/dL (7-18); BUN/Creat Ratio 21.4 RATIO (10-20); Chloride 108 mmol/L (98-107); Cholesterol 163 mg/dL (200); Creatinine, Serum 0.89 mg/dL (0.55-1.02); EST Glomerular Filtration Rate 67 mL/min (>60); Est Glom Filt Rate - Afr Amer 82 mL/min (>60); Ferritin 39 ng/mL (8-252); Free T3 2.9 pg/mL (2.18-3.98); Globulin 3.3 g/dL (2.2-4.2); Glucose 154 mg/dL (74-106); High Density Lipoprotein 50 mg/dL; Iron 36 ug/dL (50-170); Protein, Total 6.7 g/dL (6.4-8.2); Sodium Level 138 mmol/L (136-145); T4 Free Direct 0.81 ng/dL (0.76-1.46); Thyroid Stim Hormone (TSH) 1.49 uIU/mL (0.358-3.74); Triglycerides 189 mg/dL; Very Low Density Lipoprotein 38 mg/dL (5-40)
[2022-09-24 08:17] LABS: Nortriptyline Level 71 ng/mL (50-150)
== END | disposition home or self-care (01) ==
PROVIDERS: PCP Family Medicine; Referring Provider Family Medicine; Visit Provider Family Medicine
DX: E03.9 Hypothyroidism, unspecified (principal); E78.5 Hyperlipidemia, unspecified; E61.1 Iron deficiency; R73.01 Impaired fasting glucose; Z51.81 Encounter for therapeutic drug level monitoring; E53.8 Deficiency of other specified B group vitamins; E55.9 Vitamin D deficiency, unspecified
CPT/HCPCS: 36415; 80053; 80061; 80335; 82306; 82607; 82728; 83036; 83540; 84439; 84443; 84481; 85025

== ENCOUNTER 2022-09-26 15:10 | Emergency (ER) | payer MEDICARE, SELFPAY ==
[2022-09-26 15:11] VITALS: BP 171/94; PULSE 91; RESP 18; TEMP 36.2; O2SAT 99; BMI 41.5
--- NOTE | 2022-09-26 15:28 | VDUE_ITS ---
Reason For Study: Swelling Right Proximal Right jugular vein is spontaneous, widely patent, phasic, with no intraluminal echogenicity noted. Right subclavian vein is spontaneous, widely patent, phasic, with no intraluminal echogenicity noted. Right Lower Arm Right radial vein is compressible. Right ulnar vein is compressible. Right Arm Right axillary vein is spontaneous, patent, phasic, competent, compressible and demonstrates augmentation. Right brachial vein is compressible. Right cephalic vein is compressible. Right basilic vein is compressible. Patient Safety Preliminary report given to Dr. Drew. VL/Venous Duplex US, Unilateral Interpretation Summary No evidence for acute deep venous thrombosis[right] upper extremity with patent and compressible cephalic and basilic veins. Ordering Physician: Nurys Drew Referring Physician: Sosa Chandler Performed By: Santos Esquivel RVT ???
--- NOTE | 2022-09-26 15:30 | EX.ED.UPPERE ---
HPI History of Present Illness Chief Complaint: Upper Extremity Injury Detail of Chief Complaint: Right hand pain and swelling Informant: patient Onset/Context/Timing Onset: Days (4 days) Narrative Narrative: Patient presents with pain and swelling around the MCP joints of the index and long fingers on her right hand. She is a history of a right hand injury from 2011 when she was stepped on by a horse. 1 bone was fractured. She had skin injury with deep infection that required washout in the OR with Dr. Salgado. Patient states that he later went back and had a skin transfer to cover the area. He has been doing well until earlier this week when she noted some pain and swelling around the index and long finger MCP joints. She denies any known injury or repetitive motion. She states her fingers feel slightly cool and she has some tingling that radiates up her arm. She called Dr. Salgado's office today to be seen and was advised by the nurse to come to the emergency room [facility] Medical History Anemia Depression Hiatal hernia History of depression History of left heart catheterization (LHC) (~08/13/07) Hx of familial combined hyperlipidemia Impingement syndrome of right shoulder Left knee pain Left leg pain Low back pain Right shoulder pain Severe headache Shoulder pain Sinusitis, acute SIRS (systemic inflammatory response syndrome) Skin cancer Viral syndrome Home Medications atorvastatin 10 mg tablet (Lipitor) 10 mg PO QHS 12/28/13 [History Last Taken Unknown] escitalopram oxalate 20 mg tablet (Lexapro) 20 mg PO DAILY 12/28/13 [History Last Taken Unknown] metoprolol succinate 25 mg tablet,extended release 24 hr 25 mg PO DAILY 12/28/13 [History Last Taken Unknown] levothyroxine 50 mcg tablet 50 mg PO DAILY 05/07/19 [History Last Taken Unknown] lorazepam 0.5 mg tablet 0.5 mg PO DAILY PRN Anxiety 09/01/20 [History Last Taken Unknown] aspirin 81 mg chewable tablet 81 mg PO DAILY #1 TAB 03/22/22 [Rx Last Taken Unknown] famotidine 20 mg tablet (Pepcid) 20 mg PO QHS 03/22/22 [History Last Taken Unknown] liothyronine 5 mcg tablet 5 mcg PO BID 03/22/22 [History Last Taken Unknown] nortriptyline 10 mg capsule 10 mg PO QHS 03/22/22 [History Last Taken Unknown] nortriptyline 25 mg capsule 25 mg PO QHS 03/22/22 [History Last Taken Unknown] pantoprazole 40 mg tablet,delayed release 40 mg PO DAILY 03/22/22 [History Last Taken Unknown] ondansetron 4 mg disintegrating tablet 4 mg PO Q8H PRN PRN Nausea #10 tabs 08/12/22 [Rx Last Taken Unknown] potassium chloride 10 mEq tablet,extended release 10 meq PO TID #9 tabs 08/12/22 [Rx Last Taken Unknown] promethazine 25 mg tablet 25 mg PO Q6H PRN PRN Nausea #10 TABLETS 08/12/22 [Rx Last Taken Unknown] Allergy/AdvReac Type Severity Reaction Status Date / Time adhesive tape Allergy Rash Verified 09/26/22 15:11 Penicillins Allergy Hives Verified 09/26/22 15:11 Family History Father Cancer Lung/Skin Mother CVA (cerebral vascular accident) Uncle Myocardial infarction Surgical History History of cholecystectomy History of hand surgery History of repair of ACL Social History Smoking Status: Never smoker alcohol intake: current details: Rare substance use type: does not use caffeine: No ROS ROS ED Constitutional Constitutional ED: Denies chills or fever(s) Eyes Eyes: Denies change in vision or discharge from eye(s) ENT ENT ED: Denies discharge from eye(s), rhinorrhea or sore throat Cardiovascular Cardiovascular: Denies chest pain or palpitations Respiratory/Chest Respiratory/Chest: Denies cough or dyspnea Gastrointestinal Gastrointestinal: Denies abdominal pain, nausea or vomiting Genitourinary Genitourinary ED: Denies dysuria Musculoskeletal Musculoskeletal: Reports extremity pain; Denies back pain Integumentary Denies Abrasions or rash Neurologic Neurologic: Reports paresthesias; Denies headache(s) or weakness Psychiatric Psychiatric: Denies anxiety or depression Allergic/Immunologic Allergic/Immunologic ED: Denies lip swelling or urticaria EXAM Physical Exam Const Vital Signs: 09/26/22 15:11 Temperature 97.1 F L Temperature Source Temporal Pulse Rate 91 Respiratory Rate 18 Blood Pressure 171/94 H Blood Pressure Mean 119 Pulse Ox 99 Oxygen Delivery Method Room Air Positive well nourished and well developed General Appearance ED: well developed HEENT Reports normocephalic and head/scalp atraumatic Eyes PERRL and EOMs intact bilaterally Neck supple Chest Wall inspection of chest normal and palpation of chest normal Resp normal respiratory effort and clear to auscultation bilaterally Cardio regular rate and regular rhythm GI normal to inspection, nondistended, normoactive bowel sounds Palpation: soft Extremity Extremity Narrative: Mild edema noted over the MCP joints of the index and long finger of the right hand. No significant erythema or warmth noted. Slight decreased flexion secondary to edema. Good cap refill and sensation distally. No tenderness over the forearm or elbow. Neuro oriented x3 and no sensory deficits noted Sensorium / Orientation: alert Motor Exam: strength 5/5 throughout Psych mental status grossly normal Skin no rashes or lesions noted MDM MDM MDM Narrative Medical decision making narrative: Right hand x-rays obtained along with a venous ultrasound of the right upper extremity. Treatment and Re-Evaluation Narrative: Right hand x-ray my interpretation reveals no bony abnormalities. Venous ultrasound of the right upper extremity reveals no evidence of DVT. Good blood flow throughout. Test results are discussed with the patient. At this time I see no sign of infection and do not think antibiotics are needed. Andrea wrap will be applied and she is instructed to keep her hand elevated. She will call Dr. Salgado for follow-up. Return instructions are given. Discharge Plan Triage Chief Complaint: Upper Extremity Injury ED Provider: Nurys Drew Dx/Rx/DC Orders Clinical Impression: Hand edema Instructions: ED Peripheral Edema, Unilateral Prescriptions: No Action pantoprazole 40 mg tablet,delayed release (DR/EC) 40 mg PO DAILY aspirin 81 mg tablet,chewable 81 mg PO DAILY Qty: 1 0RF atorvastatin [Lipitor] 10 MG tablet 10 mg PO QHS metoprolol succinate 25 MG tablet 25 mg PO DAILY escitalopram oxalate [Lexapro] 20 MG tablet 20 mg PO DAILY famotidine [Pepcid] 20 mg tablet 20 mg PO QHS levothyroxine 50 MCG tablet 50 mg PO DAILY Label Comments: TAKE 1 TABLET BY MOUTH ONCE DAILY lorazepam 0.5 MG tablet 0.5 mg PO DAILY PRN (Reason: Anxiety) nortriptyline 10 mg capsule 10 mg PO QHS promethazine [promethazine] 25 mg tablet 25 mg PO Q6H PRN PRN (Reason: Nausea) Qty: 10 0RF ondansetron [ondansetron] 4 mg tablet,disintegrating 4 mg PO Q8H PRN PRN (Reason: Nausea) Qty: 10 0RF potassium chloride 10 mEq tablet extended release 10 meq PO TID Qty: 9 0RF nortriptyline 25 mg capsule 25 mg PO QHS Label Comments: liothyronine 5 mcg tablet 5 mcg PO BID Primary Care Provider: Sosa Chandler Referrals: Randy Salgado MD [Med Staff - Active Staff] - As soon as possible Sosa Chandler DO [Primary Care Provider] - Disposition Disposition: Home, Self Care
--- NOTE | 2022-09-26 15:38 | RAD_ITS ---
INDICATION: Right hand swelling and tingling, no recent injury EXAMINATION/TECHNIQUE: X-RAY - RIGHT XR Hand Min 3 Views 3 VIEWS COMPARISON: 01/12/2019 FINDINGS: SOFT TISSUES: No soft tissue swelling or gas. No radiopaque foreign body. BONES/JOINTS: No acute fracture. Joint spaces anatomically aligned with degenerative changes of the PIP joint and distal ulna. No sclerotic or destructive changes observed. RAD/Hand Min 3 Views IMPRESSION: Degenerative changes without acute bony abnormality. Electronically Signed: José Guzmán MD at 16:21 EDT ,
== END 2022-09-26 16:29 | disposition home or self-care (01) ==
PROVIDERS: Emergency Provider Emergency Medicine; PCP Family Medicine; Visit Provider Emergency Medicine
DX: R60.0 Localized edema (principal); M79.641 Pain in right hand
CPT/HCPCS: 73130; 93971; 99282; A4216

== ENCOUNTER → 2022-11-01 | Outpatient (CLI) | payer MEDICARE, SELFPAY ==
--- NOTE | 2022-11-01 12:45 | BI_ITS ---
MAMMOGRAPHY - BILATERAL SCREENING REASON FOR EXAM: Female, 67 years old. Routine annual screening examination. PERTINENT HISTORY: Non-contributory. TECHNIQUE: Digital bilateral breast flakito (3D mammographic acquisition) in the CC and MLO projections. 2-D mediolateral oblique (MLO) and craniocaudad (CC) views of both breasts were obtained. CAD: Full Field Digital Mammography with Computer Added Detection was performed. COMPARISON: Comparison is made with prior study dated October 31, 2021 and October 12, 2020. FINDINGS: Breast Composition: There are scattered areas of fibroglandular density. There are no dominant masses or suspicious calcifications. Stable benign-appearing bilateral axillary lymph nodes. No other significant abnormalities are identified. There has been no significant change since the prior study. BI/SCRN MAMM (CAD)W/FLAKITO BILAT IMPRESSION: Stable bilateral screening mammogram. Yearly follow-up mammogram recommended. (A) ASSESSMENT CATEGORY: BIRADS Category 2: Benign. A letter regarding these results will be sent to the patient by the facility within 30 days. Approximately 10% of breast cancers are not detected by mammography. A normal mammogram should not delay biopsy of a clinically suspicious abnormality. [id number] Electronically Signed: Zach Muñoz MD at 13:09 EDT ,
== END | disposition home or self-care (01) ==
LOC: OPBI 12:43
PROVIDERS: PCP Family Medicine; Referring Provider Obstetrics & Gynecology; Visit Provider Obstetrics & Gynecology
DX: Z12.31 Encounter for screening mammogram for malignant neoplasm of breast (principal)
CPT/HCPCS: 77063; 77067

== ENCOUNTER 2023-04-24 18:22 | Emergency (ER) | payer MEDICARE, SELFPAY ==
[2023-04-24 18:23] VITALS: BP 172/88; PULSE 81; RESP 18; TEMP 35.7; O2SAT 100; BMI 37.6
[2023-04-24 20:27] VITALS: PULSE 87; RESP 16; O2SAT 100
[2023-04-24 20:35] LABS: Absolute Lymphocyte Count 1.85 X10^3/uL (0.83-4.51); Absolute Neutrophil Count 4.5 X10^3/uL (2.0-7.7); Basophil# 0.03 X10^3/uL; Basophil% 0.4 % (0-1); Eosinophil# 0.17 X10^3/uL; Eosinophils% 2.3 % (0-5); Hematocrit 40.9 % (37-47); Hemoglobin 12.8 g/dL (12.0-15.0); Lymphocyte # 1.85 X10^3/ul (0.83-4.51); Lymphocyte % 25.2 % (19-41); Mean Corp Hgb Conc 31.3 g/dL (32-36); Mean Corpuscular Hgb 26.6 pg (27.0-32.0); Mean Platelet Vol. 9.2 fl (6.2-12.0); Monocyte% 9.5 % (0-10); NRBC Flagged by Analyzer 0 % (0-5); Neutrophil # 4.54 X10^3/uL (2.7-7.7); Neutrophil % 61.9 % (47-70); Platelet Count 294 K/mm3 (150-450); RBC Distribution Width SD 43.3 fl (35.1-43.9); Red Blood Count 4.81 M/mm3 (4.2-5.4); White Blood Count 7.3 K/mm3 (4.4-11.0)
[2023-04-24 20:50] LABS: AST(SGOT) 22 U/L (15-37); Alanine Aminotransfer ALT/SGPT 36 U/L (13-56); Albumin, Serum 3.5 g/dL (3.2-5.0); Alkaline Phosphatase 71 U/L (45-117); Anion Gap 5 (5-15); BUN 17 mg/dL (7-18); BUN/Creat Ratio 15.9 RATIO (10-20); Calcium,Total 9.4 mg/dL (8.5-10.1); Chloride 106 mmol/L (98-107); Creatinine, Serum 1.07 mg/dL (0.55-1.02); EST Glomerular Filtration Rate 54 mL/min (>60); Est Glom Filt Rate - Afr Amer 66 mL/min (>60); Estimated Creatinine Clearance 41.63 ml/min; Globulin 3.5 g/dL (2.2-4.2); Glucose 92 mg/dL (74-106); Potassium 3.6 mmol/L (3.5-5.1); Sodium Level 139 mmol/L (136-145)
--- NOTE | 2023-04-24 20:59 | EX.ED.DYSGE1 ---
HPI History of Present Illness Chief Complaint: Flank Pain Informant: patient Narrative Narrative: 67-year-old female presenting to the emergency department with chief complaint of abdominal pain. Patient states that she has felt fatigued for 10 days. Today she developed a significant ache in the left upper abdomen/flank. She states it feels its beneath the lower rib cage. She denies any urinary symptoms. Its been 2 to 3 days since her last bowel movement which is normal for her. No history of diverticulosis. She states that Once upon a time she had a history of irritable bowel but does not believe she has that now. She denies any trauma to the area. No urinary symptoms. No fever no rash. She notes a loss of appetite since noon. [facility] Medical History Abdominal panniculus Anemia Depression Family history of skin cancer Hiatal hernia History of depression History of left heart catheterization (LHC) (~08/13/07) Hx of familial combined hyperlipidemia Impingement syndrome of right shoulder Injury caused by animal Intertrigo Late effect of open wound with trauma Left knee pain Left leg pain Localized swelling on right hand Low back pain MDD (major depressive disorder) Medication monitoring encounter Personal history of skin cancer Pyogenic granuloma of skin and subcutaneous tissue Recent weight loss Right shoulder pain Severe headache Shoulder pain Sinusitis, acute SIRS (systemic inflammatory response syndrome) Skin cancer Toxic effect of unspecified spider venom, accidental (unintentional), sequela Viral syndrome Home Medications atorvastatin 10 mg tablet (Lipitor) 10 mg PO QHS 12/28/13 [History Last Taken Unknown] metoprolol succinate 25 mg tablet,extended release 24 hr 25 mg PO DAILY 12/28/13 [History Last Taken Unknown] lorazepam 0.5 mg tablet 0.5 mg PO DAILY PRN Anxiety 09/01/20 [History Last Taken Unknown] aspirin 81 mg chewable tablet 81 mg PO DAILY #1 TAB 03/22/22 [Rx Last Taken Unknown] famotidine 20 mg tablet (Pepcid) 20 mg PO QHS 03/22/22 [History Last Taken Unknown] pantoprazole 40 mg tablet,delayed release 40 mg PO DAILY 03/22/22 [History Last Taken Unknown] escitalopram oxalate 20 mg tablet (Lexapro) 20 mg PO DAILY #90 tabs 03/10/23 [Rx Last Taken Unknown] levothyroxine 50 mcg tablet 50 mcg PO DAILY #90 tabs 03/10/23 [Rx Last Taken Unknown] liothyronine 5 mcg tablet 5 mcg PO BID #180 tabs 03/10/23 [Rx Last Taken Unknown] nortriptyline 10 mg capsule 10 mg PO QHS #90 caps 03/10/23 [Rx Last Taken Unknown] nortriptyline 25 mg capsule 25 mg PO QHS #90 caps 03/10/23 [Rx Last Taken Unknown] Allergy/AdvReac Type Severity Reaction Status Date / Time adhesive tape Allergy Rash Verified 04/24/23 18:23 Penicillins Allergy Hives Verified 04/24/23 18:23 Family History Father Cancer Lung/Skin Mother CVA (cerebral vascular accident) Uncle Myocardial infarction Surgical History History of cholecystectomy History of hand surgery History of incision and drainage History of repair of ACL History of skin graft Social History Smoking Status: Never smoker alcohol intake: current details: Rare substance use type: does not use caffeine: No ROS ROS ED ROS Narrative Generalized fatigue Constitutional Constitutional ED: Denies chills, fever(s) or weight loss Eyes Eyes: Denies change in vision or diplopia ENT ENT ED: Denies ear pain, rhinorrhea or sore throat Cardiovascular Cardiovascular: Denies chest pain, orthopnea, palpitations or racing heartbeat Respiratory/Chest Respiratory/Chest: Denies cough, dyspnea or orthopnea Gastrointestinal Gastrointestinal: Reports abdominal pain; Denies constipation, diarrhea, nausea or vomiting Genitourinary Genitourinary ED: Denies dysuria, hematuria or urinary frequency Musculoskeletal Musculoskeletal: Denies arthralgias or myalgias Integumentary Denies abscess or rash Neurologic Neurologic: Denies headache(s) or weakness Psychiatric Psychiatric: Denies anxiety, depression, suicidal ideation or suicidal thoughts Endocrine Endocrinology: Denies polydipsia, polyphagia or polyuria Allergic/Immunologic Allergic/Immunologic ED: Denies mouth swelling, tongue swelling or urticaria EXAM Physical Exam Const Vital Signs: 04/24/23 18:23 04/24/23 20:27 Temperature 96.2 F L Temperature Source Temporal Pulse Rate 81 87 Respiratory Rate 18 16 Blood Pressure 172/88 H Blood Pressure Mean 116 Pulse Ox 100 100 Oxygen Delivery Method Room Air Room Air Positive well nourished and well developed General Appearance ED: well developed HEENT Reports normocephalic, head/scalp atraumatic and moist mucous membranes Eyes PERRL and EOMs intact bilaterally Neck no lymphadenopathy, supple and no JVD Resp normal respiratory effort and clear to auscultation bilaterally Cardio regular rate, regular rhythm and no murmurs GI normal to inspection, nondistended, normoactive bowel sounds and non-tender Palpation: soft Back/Spine no CVA tenderness and normal ROM Extremity normal to inspection General Extremety ED: Negative for edema General Extremity: Negative for edema Neuro oriented x3 and CN's II-XII intact bilaterally Sensorium / Orientation: alert Motor Exam: strength 5/5 throughout Psych mental status grossly normal Mood & Affect: Negative for depressed or tearful Skin no rashes or lesions noted and no wounds MDM MDM MDM Narrative Medical decision making narrative: Patient's white count is 7.3 with a hemoglobin 12.8 and platelet count of 294. Her MCV is 85. BMP showed a creatinine 1.07. Liver lipase normal urinalysis normal. CT of the abdomen pelvis with IV contrast normal. Patient does not have a pleuritic component to her pain and I doubt that this is pulmonary embolism. I do not see evidence of splenic infarction. Does not sound stomach related like ulcer or gastritis as there is no pain with eating black tarry stools or epigastric discomfort and this was an abrupt onset rather than progressive. Patient has an appointment tomorrow with primary care. She declines pain medication here. History & Record Review Discussion w/independent historian: Patient and Family Lab Data Attestation: I reviewed the patient's lab results. Labs: Laboratory Results - last 24 hr 04/24/23 04/24/23 20:09 20:22 WBC 7.3 RBC 4.81 Hgb 12.8 Hct 40.9 MCV 85.0 MCH 26.6 L MCHC 31.3 L RDW Std Deviation 43.3 RDW Coeff of [place] 14.0 Plt Count 294 MPV 9.2 Immature Gran % (Auto) 0.700 Neut % (Auto) 61.9 Lymph % (Auto) 25.2 [place] % (Auto) 9.5 Eos % (Auto) 2.3 Baso % (Auto) 0.4 Absolute Neuts (auto) 4.5 Absolute Lymphs (auto) 1.85 Nucleated RBC % 0 Sodium 139 Potassium 3.6 Chloride 106 Carbon Dioxide 28.0 Anion Gap 5 BUN 17 Creatinine 1.07 H Estim Creat Clear Calc 41.63 Est GFR (MDRD) Af Amer 66 Est GFR (MDRD) Non-Af 54 L BUN/Creatinine Ratio 15.9 Glucose 92 Calcium 9.4 Total Bilirubin 0.80 AST 22 ALT 36 Alkaline Phosphatase 71 Total Protein 7.0 Albumin 3.5 Globulin 3.5 Albumin/Globulin Ratio 1.0 Lipase 32 Urine Color Yellow Urine Clarity Clear Urine pH 6.5 Ur Specific [place] 1.010 Urine Protein 15 H Urine Glucose (UA) Normal Urine Ketones Negative Urine Occult Blood Negative Urine Nitrite Negative Urine Bilirubin Negative Urine Urobilinogen Normal Ur Leukocyte Esterase 25 H Urine RBC 0 SEEN Urine WBC 0-5 SEEN Ur Squamous Epith Cells 0-5 SEEN Urine Bacteria 0 SEEN Urine Mucus 0 SEEN Radiography Diagnostic Testing: Clinical Impression(s) from Imaging Studies Abdomen/Pelvis CT 04/24/23 21:20 IMPRESSION: No acute pathology of the abdomen and pelvis. Electronically Signed: Greg Nayak DO at 21:58 EST Reading Location ID and State: [facility] / [place] Tel [phone], Service support , Discharge Plan Triage Chief Complaint: Flank Pain ED Provider: Jomar Linares Dx/Rx/DC Orders Clinical Impression: Acute left flank pain Instructions: ED Pain, Acute, Uncertain Cause Prescriptions: No Action pantoprazole 40 mg tablet,delayed release (DR/EC) 40 mg PO DAILY aspirin 81 mg tablet,chewable 81 mg PO DAILY Qty: 1 0RF nortriptyline 10 mg capsule 10 mg PO QHS Qty: 90 1RF nortriptyline 25 mg capsule 25 mg PO QHS Qty: 90 1RF escitalopram oxalate [Lexapro] 20 mg tablet 20 mg PO DAILY Qty: 90 1RF levothyroxine 50 mcg tablet 50 mcg PO DAILY Qty: 90 1RF liothyronine 5 mcg tablet 5 mcg PO BID Qty: 180 1RF atorvastatin [Lipitor] 10 MG tablet 10 mg PO QHS metoprolol succinate 25 MG tablet 25 mg PO DAILY famotidine [Pepcid] 20 mg tablet 20 mg PO QHS lorazepam 0.5 MG tablet 0.5 mg PO DAILY PRN (Reason: Anxiety) Primary Care Provider: Sosa Chandler Referrals: Sosa Chandler DO [Primary Care Provider] - [facility] appointment Disposition Disposition: Home, Self Care
[2023-04-24 21:13] LABS: Lipase 32 U/L (13-75)
--- NOTE | 2023-04-24 21:20 | CT_ITS ---
STUDY: CT ABDOMEN AND PELVIS WITH CONTRAST REASON FOR EXAM: Female, 67 years old. luq pain RADIATION DOSAGE (If Supplied By Facility): CTDIvol = ( 17.99 ) mGy, DLP = ( 1245.37 ) mGycm TECHNIQUE: Transaxial images were obtained from the dome of the diaphragm to the symphysis pubis without oral contrast. IV 100mL Isovue-370 was administered. Sagittal and coronal images were reconstructed. Individualized dose optimization techniques were used for this CT. COMPARISON: None. FINDINGS: The visualized lung bases are unremarkable. The visualized portions of the heart are within normal limits. Normal liver. Status post cholecystectomy. No significant dilatation of extrahepatic biliary system. Normal spleen. Normal pancreas. Normal bilateral adrenal glands. Normal right kidney. Normal left kidney. Normal visualized stomach. Normal small intestine. Normal colon. The appendix is not visualized. Normal abdominal aorta. Normal inferior vena cava. Normal retroperitoneum. Normal urinary bladder. Normal abdominal wall. Degenerative vertebral changes. CT/Abdomen/Pelvis W IV Cont ONLY IMPRESSION: No acute pathology of the abdomen and pelvis. Electronically Signed: Greg Nayak DO at 21:58 EST Reading Location ID and State: [facility] / [place] Tel [phone], Service support ,
[2023-04-24 22:14] LABS: Bacteria 0 SEEN /hpf (None Seen); Mucous, Urine 0 SEEN /hpf (<or=2+); Red Blood Cells-Urine 0 SEEN /hpf (0-5)
[2023-04-24 22:15] LABS: Color, Urine Yellow (Yellow); Glucose, Dipstick Normal (Normal); Ketone-Dipstick Negative (Negative); Leukocyte Esterase-Dipstick 25 /ul (Negative); Nitrite-Dipstick Negative (Negative); Occult Blood-Urine Negative /ul (Negative); Protein-Dipstick 15 mg/dl (Negative); Urine Bilirubin Dipstick Negative (Negative); Urine Clarity Clear (Clear); Urine Urobilinogen Normal (Normal); Urine pH 6.5 (5.0 - 8.0)
[2023-04-24 22:32] LABS: Squamous Epithelial Cells - UA 0-5 SEEN /hpf (5-10); White Blood Cells 0-5 SEEN /hpf (0-5)
[2023-04-24 23:03] VITALS: BP 139/86; PULSE 66; RESP 16; O2SAT 98
[2023-04-24 23:05] VITALS: BP 139/86
== END 2023-04-24 23:05 | disposition home or self-care (01) ==
PROVIDERS: Emergency Provider Emergency Medicine; PCP Family Medicine; Visit Provider Emergency Medicine
DX: R10.9 Unspecified abdominal pain (principal); E78.49 Other hyperlipidemia; F32.A Depression, unspecified; Z79.82 Long term (current) use of aspirin; Z79.899 Other long term (current) drug therapy
CPT/HCPCS: 74177; 80053; 81001; 83690; 85025; 99283; Q9967; A4216

== ENCOUNTER → 2023-09-16 | Outpatient (CLI) | payer MEDICARE, SELFPAY ==
[2023-09-16 12:55] LABS: Absolute Lymphocyte Count 1.67 X10^3/uL (0.83-4.51); Absolute Neutrophil Count 2.7 X10^3/uL (2.0-7.7); Basophil# 0.04 X10^3/uL; Basophil% 0.8 % (0-1); Eosinophil# 0.11 X10^3/uL; Eosinophils% 2.2 % (0-5); Hematocrit 40.6 % (37-47); Hemoglobin 12.7 g/dL (12.0-15.0); Lymphocyte # 1.67 X10^3/ul (0.83-4.51); Lymphocyte % 33.2 % (19-41); Mean Corp Hgb Conc 31.3 g/dL (32-36); Mean Corpuscular Hgb 26.3 pg (27.0-32.0); Mean Corpuscular Volume 84.1 fL (81-99); Mean Platelet Vol. 9.8 fl (6.2-12.0); Monocyte# 0.47 X10^3/uL; Monocyte% 9.3 % (0-10); NRBC Flagged by Analyzer 0 % (0-5); Neutrophil # 2.73 X10^3/uL (2.7-7.7); Neutrophil % 54.3 % (47-70); Platelet Count 322 K/mm3 (150-450); RBC Distribution Width CV 14.1 % (11.6-14.6); RBC Distribution Width SD 43.4 fl (35.1-43.9); Red Blood Count 4.83 M/mm3 (4.2-5.4)
[2023-09-16 15:13] LABS: ALB/GLOB Ratio 0.9 RATIO (0.9-2.4); AST(SGOT) 24 U/L (15-37); Alanine Aminotransfer ALT/SGPT 40 U/L (13-56); Albumin, Serum 3.5 g/dL (3.2-5.0); Alkaline Phosphatase 93 U/L (45-117); Anion Gap 7 (5-15); BUN 14 mg/dL (7-18); BUN/Creat Ratio 12.5 RATIO (10-20); Calcium,Total 9.1 mg/dL (8.5-10.1); Chloride 106 mmol/L (98-107); Cholesterol 246 mg/dL (200); Creatinine, Serum 1.12 mg/dL (0.55-1.02); EST Glomerular Filtration Rate 51 mL/min (>60); Est Glom Filt Rate - Afr Amer 62 mL/min (>60); Free T3 3.2 pg/mL (2.18-3.98); Globulin 3.8 g/dL (2.2-4.2); Glucose 112 mg/dL (74-106); High Density Lipoprotein 52 mg/dL; Potassium 3.9 mmol/L (3.5-5.1); Protein, Total 7.3 g/dL (6.4-8.2); Sodium Level 137 mmol/L (136-145); T4 Free Direct 0.96 ng/dL (0.76-1.46); Thyroid Stim Hormone (TSH) 0.95 uIU/mL (0.358-3.74); Triglycerides 142 mg/dL; Very Low Density Lipoprotein 28 mg/dL (5-40)
[2023-09-16 16:04] LABS: Hemoglobin A1c 5.7 % (3.8-5.6)
[2023-09-16 16:30] LABS: Vitamin B12 > 2000 pg/mL (211-911); Vitamin D,25 Hydroxy 75.9 ng/mL
[2023-09-18 21:07] LABS: Nortriptyline Level 91 ng/mL (50-150)
== END | disposition home or self-care (01) ==
LOC: BFHLAB 09-11 08:54 → MTLAB 09:44
PROVIDERS: Student in an Organized Health Care Education/Training Program; PCP Family Medicine; Referring Provider Family Medicine; Visit Provider Family Medicine
DX: R73.01 Impaired fasting glucose (principal); E55.9 Vitamin D deficiency, unspecified; E03.9 Hypothyroidism, unspecified; E78.5 Hyperlipidemia, unspecified; Z51.81 Encounter for therapeutic drug level monitoring
CPT/HCPCS: 36415; 80053; 80061; 80335; 82306; 82607; 83036; 84439; 84443; 84481; 85025

== ENCOUNTER → 2023-10-13 | Outpatient (CLI) | payer MEDICARE, SELFPAY ==
[2023-10-13 17:51] LABS: Ferritin 43 ng/mL (8-252); Iron 43 ug/dL (50-170)
== END | disposition home or self-care (01) ==
PROVIDERS: PCP Family Medicine; Referring Provider Family Medicine; Visit Provider Family Medicine
DX: D64.9 Anemia, unspecified (principal); E61.1 Iron deficiency
CPT/HCPCS: 36415; 82728; 83540

== ENCOUNTER → 2023-10-21 | Outpatient (CLI) | payer MEDICARE, SELFPAY | END | disposition home or self-care (01) | LOC: PSN 12:15 | PROVIDERS: PCP Family Medicine; Referring Provider Family Medicine; Visit Provider Family Medicine | DX: R06.00 Dyspnea, unspecified (principal) | CPT/HCPCS: 94060; 94726; 94729 ==

== ENCOUNTER → 2023-11-07 | Outpatient (CLI) | payer MEDICARE, SELFPAY ==
[2023-11-07 12:00] LABS: BNP,B-Type NATRIURETIC PEPTIDE 56.8 pg/mL (0-100)
[2023-11-07 12:03] LABS: Anion Gap 6 (5-15); BUN 18 mg/dL (7-18); Calcium,Total 9.5 mg/dL (8.5-10.1); Chloride 107 mmol/L (98-107); EST Glomerular Filtration Rate 58 mL/min (>60); Est Glom Filt Rate - Afr Amer 71 mL/min (>60); Glucose 117 mg/dL (74-106); Potassium 3.6 mmol/L (3.5-5.1); Sodium Level 139 mmol/L (136-145); Troponin-I HS 4 pg/mL (3.0-54.0)
== END | disposition home or self-care (01) ==
LOC: LAB 11:15
PROVIDERS: PCP Family Medicine; Referring Provider Physician Assistant Medical; Visit Provider Physician Assistant Medical
DX: R06.09 Other forms of dyspnea (principal); R07.9 Chest pain, unspecified
CPT/HCPCS: 36415; 80048; 83880; 84484

== ENCOUNTER → 2023-11-11 | Outpatient (CLI) | payer MEDICARE, SELFPAY ==
--- NOTE | 2023-11-11 13:48 | BI_ITS ---
MAMMOGRAPHY - BILATERAL SCREENING REASON FOR EXAM: Female, 68 years old. Routine annual screening examination. PERTINENT HISTORY: Non-contributory. TECHNIQUE: Digital bilateral breast flakito (3D mammographic acquisition) in the CC and MLO projections. 2-D mediolateral oblique (MLO) and craniocaudad (CC) views of both breasts were obtained. CAD: Full Field Digital Mammography with Computer Added Detection was performed. COMPARISON: Comparison is made with prior study dated November 01, 2022 and October 31, 2021. FINDINGS: Breast Composition: There are scattered areas of fibroglandular density. There are no dominant masses or suspicious calcifications. Stable benign-appearing bilateral axillary lymph nodes. No other significant abnormalities are identified. There has been no significant change since the prior study. BI/SCRN MAMM (CAD)W/FLAKITO BILAT IMPRESSION: Stable bilateral screening mammogram. Yearly follow-up mammogram recommended. (A) ASSESSMENT CATEGORY: BIRADS Category 2: Benign. A letter regarding these results will be sent to the patient by the facility within 30 days. Approximately 10% of breast cancers are not detected by mammography. A normal mammogram should not delay biopsy of a clinically suspicious abnormality. [id number] Electronically Signed: Zach Muñoz MD at 15:30 EDT ,
--- NOTE | 2023-11-11 13:54 | BD_ITS ---
STUDY: DUAL ENERGY X-RAY ABSORPTIOMETRY / DXA REASON FOR EXAM: Female, 68 years old. M810 TECHNIQUE: Bone Mineral Density (BMD) measurements of lumbar spine and bilateral hips were obtained. COMPARISON: Comparison is made with prior study dated October 31, 2021. FINDINGS: Lumbar Spine (L1-L4): g/cm2 (0.897) / T-score (-1.4) / Z-score (0.6) Findings are suggestive of osteopenia with a low fracture risk. Left Femur Total: g/cm2 (0.772) / T-score (-1.4) / Z-score (0.1) Left Femoral Neck: g/cm2 (0.618) / T-score (-2.1) / Z-score (-0.3) Right Femur Total: g/cm2 (0.779) / T-score (-1.3) / Z-score (0.1) Right Femoral Neck: g/cm2 (0.618) / T-score (-2.1) / Z-score (-0.3) The T-Scores on the most recent prior examination were: Lumbar Spine (L1-L4): There has been improvement of bone density since the previous examination. Left Femur Total: which represents an improvement of 0.3%. Right Femur Total: which represents a worsening of 6.5%. BD/Dexa Bone Density Study IMPRESSION: The patient is considered osteopenic as outlined below according to World [place] Organization (WHO) criteria with a high fracture risk. There has been improvement of bone density since the previous examination. Reference Information: The T-score is the number of standard deviations above or below the standard which is normal for young adults at their peak bone mineral density. The World Health Organization (WHO) interprets the T-scores as follows: Above -1 Normal bone density Between -1 and -2.5 Osteopenia Equal to / or below -2.5 Osteoporosis As a practical clinical guideline, osteopenia may be graded as follows: Mild -1 through -1.5 Moderate -1.6 through -2.0 Severe -2.1 through -2.4 The Z-score is the number of standard deviations above or below age-matched controls. A Z-score of less than -1.5 would be considered abnormal. References: 1. NIH Osteoporosis and Related Bone Diseases www osteo.org 2. International Society for Clinical Densitometry www iscd.org 3. National Osteoporosis Foundation www nof.org Electronically Signed: Zach Muñoz MD at 14:19 EDT ,
== END | disposition home or self-care (01) ==
LOC: OPBI 13:47
PROVIDERS: PCP Family Medicine; Referring Provider Family Medicine; Visit Provider Family Medicine
DX: Z12.31 Encounter for screening mammogram for malignant neoplasm of breast (principal); M81.0 Age-related osteoporosis without current pathological fracture
CPT/HCPCS: 77063; 77067; 77080

== ENCOUNTER → 2023-11-18 | Outpatient (CLI) | payer MEDICARE, SELFPAY ==
--- NOTE | 2023-11-18 17:57 | STRESSREP_ITS ---
Stress Test Report Exercise myocardial perfusion stress test. 68-year-old lady with a history of chest pain Stress protocol: Resting EKG demonstrates normal sinus rhythm with occasional PVC and a rate of 76 bpm resting blood pressure is 134/70 mmHg. The patient exercised according to the regular Terry protocol for a total duration of 4 minutes attaining a ma ximum heart rate of 125 bpm which was 82 of maximum predicted heart rate; the maximum workload was 7 metabolic equivalents. At rest there were no ST or T wave changes noted to suggest ischemia and at peak exercise upsloping ST changes only were noted which did not meet the criteria for ischemia. No clinical angina was noted the test was terminated due to the target heart rate being achieved/fatigue. The peak blood pressure was 168/70 mmHg. Rate-pressure product was 16,400. Myocardial perfusion protocol. 14 points mCi of technetium 99m sestamibi was injected at rest. The patient exercised according to regular Terry protocol for total duration of 4-minute and at peak exercise 44.3 mCi of technetium 99m sestamibi was injected stress images were obtained stress and rest images were reconstructed in comparing the short axis vertical long and horizontal long axis. Gated images were also obtained. Perfusion SPECT analysis: Review of the stress images demonstrate normal uptake of tracer noted in all areas of the myocardium. The resting images similarly demonstrate normal uptake of tracer noted in all areas of the myocardium. No areas of reversibility are noted to suggest ischemia no previous infarct was noted. Gated SPECT analysis: The gated ejection fraction is 80%. Conclusion: Normal exercise myocardial perfusion stress test at a moderate workload Preserved ejection fraction.
== END | disposition home or self-care (01) ==
LOC: CVS 06:18
PROVIDERS: PCP Family Medicine; Referring Provider Physician Assistant Medical; Visit Provider Physician Assistant Medical
DX: R07.9 Chest pain, unspecified (principal); R06.09 Other forms of dyspnea
CPT/HCPCS: 78452; 93017; A9500; A4216

== ENCOUNTER → 2024-11-08 | Outpatient (CLI) | payer MEDICARE, SELFPAY ==
--- NOTE | 2024-11-08 12:41 | RAD_ITS ---
EXAM: XR Lumbosacral Spine, 2 or 3 Views CLINICAL INDICATION: PAIN, RECENTLY LIFTED SOMETHING HEAVY TECHNIQUE: Frontal and lateral views of the lumbar spine and sacrum. COMPARISON: No relevant prior studies available. FINDINGS: VERTEBRAE: Mild compression deformity of the superior endplate of L5 vertebral body. This can be further evaluated with MRI. Multilevel endplate degenerative change and disc disease of the visualized spine, most prominent from L4-S1. Normal alignment. SACRUM/COCCYX: Unremarkable as visualized. No acute fracture. DISC SPACES: See above. SOFT TISSUES: Unremarkable. RAD/Lumbar Spine 2 or 3 Views IMPRESSION: 1. Mild compression deformity of the superior endplate of L5 vertebral body. This can be further evaluated with MRI. 2. Degenerative changes as above. Reading [facility]
== END | disposition home or self-care (01) ==
PROVIDERS: PCP Internal Medicine; Referring Provider Physician Assistant; Visit Provider Physician Assistant
DX: M54.50 Low back pain, unspecified (principal)
CPT/HCPCS: 72100

== ENCOUNTER → 2024-11-12 | Outpatient (CLI) | payer MEDICARE, SELFPAY ==
[2024-11-12 15:05] LABS: Absolute Neutrophil Count 4.2 X10^3/uL (2.0-7.7); Basophil# 0.06 X10^3/uL; Basophil% 0.7 % (0-1); Eosinophil# 0.08 X10^3/uL; Hematocrit 38.4 % (37-47); Hemoglobin 12.3 g/dL (12.0-15.0); Lymphocyte % 36.2 % (19-41); Mean Corpuscular Hgb 27.4 pg (27.0-32.0); Mean Corpuscular Volume 85.5 fL (81-99); Mean Platelet Vol. 10.4 fl (6.2-12.0); Monocyte# 0.88 X10^3/uL; Monocyte% 10.6 % (0-10); NRBC Flagged by Analyzer 0 % (0-5); Neutrophil # 4.22 X10^3/uL (2.7-7.7); Platelet Count 318 K/mm3 (150-450); RBC Distribution Width CV 14.4 % (11.6-14.6); RBC Distribution Width SD 44.6 fl (35.1-43.9); Red Blood Count 4.49 M/mm3 (4.2-5.4); White Blood Count 8.3 K/mm3 (4.4-11.0)
[2024-11-12 15:45] LABS: Thyroid Stim Hormone (TSH) 0.796 uIU/mL (0.300-4.200)
[2024-11-12 16:33] LABS: Hemoglobin A1c 5.7 % (<=5.6)
[2024-11-12 16:45] LABS: ALB/GLOB Ratio 1.4 RATIO (0.9-2.4); AST(SGOT) 21 U/L (<=31); Alanine Aminotransfer ALT/SGPT 13 U/L (<=34); Albumin, Serum 3.9 g/dL (3.4-4.8); Alkaline Phosphatase 64 U/L (35-104); Anion Gap 11 (5-15); BUN 23 mg/dL (4-19); BUN/Creat Ratio 24.4 RATIO (10-20); Calcium,Total 9.6 mg/dL (7.6-11.0); Carbon Dioxide 25.4 mmol/L (21.0-32.0); Chloride 104 mmol/L (98-108); Creatinine, Serum 0.93 mg/dL (0.70-1.20); EST Glomerular Filtration Rate 66 (>60); Globulin 2.7 g/dL (2.2-4.2); Glucose 75 mg/dL (70-99); Potassium 3.5 mmol/L (3.3-5.1); Protein, Total 6.5 g/dL (5.9-8.4); Sodium Level 140 mmol/L (133-145); Thyroid Stim Hormone (TSH) 0.779 uIU/mL (0.300-4.200); Total Bilirubin 0.32 mg/dL (0.00-1.30); Vitamin D,25 Hydroxy 54.4 ng/mL (30-100)
[2024-11-12 16:56] LABS: Cholesterol 166 mg/dL (<=200); High Density Lipoprotein 59 mg/dL; Low Density Lipoprotein Calc. 83 mg/dL; Triglycerides 117 mg/dL; Very Low Density Lipoprotein 23 mg/dL (5-40); cholesterol:hdl ratio screen 2.79
--- OUTSIDE RECORDS SUMMARY | 2024-11-12 18:09 | XMS RPT_ITS | CCD ---
Author Organization [facility] Care Team Providers Care Sql Ssrs Ssis Developer Name Role Phone Cheryl Quinteros RN Unavailable Unavailable Flor, Kim Y Unavailable Matt Bullock Attending Unavailab Matt Contreras Referring Unavailab Sosa Burnette Primary Care Unavailable LEANNE DREW Admitting Unavailable LEANNE DREW Referring Unavailable NO, PHYSICIAN Primary Care Unavailable Dr. Sosa Chandler Primary Care Provider Dr. Sosa Chandler Referring Provider Dr. Monroe Bocanegra Attending Provider [phone] Dr. Monroe Bocanegra Referring Provider Dr. Monroe Bocanegra Other Provider [phone] Sosa Chandler Primary Care Provider [phone] Dr. Sosa Chandler Referring Provider [phone] Roof TAR HEEL, TAR HEEL-Abbie Dave Attending Provider Malys DO, Sosa A Primary Care Provider Malys DO, Sosa A Primary Care Provider MALYS, SOSA A Primary Care Unavailable JOAN PORTER Attending Unavail able MALYS, SOSA A Primary Care Unavailable MALYS, SOSA A Primary Care Unavailable MALYS, SOSA A Referring Unavailable MALYS, SOSA A Primary Care Unavailable MALYS, SOSA A Referring Unavailable MALYS, SOSA A Primary Care Unavailable JOAN PORTER Referring Unavail able Cumberland, Nadira Primary Care Unavailable Cumberland, Nadira Referring Unavailable Cumberland, Nadira Attending Unavailable Cumberland, Nadira Primary Care Unavailable Gasper, Nadira Referring Unavailable Migue Bell Attending Unavailable Malys, Sosa Primary Care Unavailable Ana Perales NP Attending Unavailable Malys, Sosa Primary Care Unavailable Baldo Posadas Attending Unavailable Charity Nina Referring Unavail able Charity Nina Consulting Unavail able Cumberland, Nadira Primary Care Unavailable Gasper, Nadira Referring Unavailable Ungerer, Alexandra Attending Unavailable Malys, Sosa Primary Care Unavailable Migue Guadalupe Attending Unavailable Malys, Sosa Referring Unavailable Gasper, Nadira Attending Unavailable Migue Guadalupe Attending Unavailable Malys, Sosa Primary Care Unavailable Luciana Will Attending Unavailable Nurys Hummel Attending Unavailable Newton Granado Attending Unavailable Gasper, Nadira Primary Care Unavailable Nurys Hummel Attending Unavailable Beatriz Guan Attending Unavailable Gasper, Nadira Primary Care Unavailable Cumberland, Nadira Referring Unavailable Migue Guadalupe Attending Unavailable Malys, Sosa Referring Unavailable Beatriz Guan Attending Unavailable Malys, Sosa Primary Care Unavailable Nurys Hummel Attending Unavailable Gasper, Nadira Primary Care Unavailable Migue Bell Referring Unavailable Migue Bell Attending Unavailable Gasper, Nadira Primary Care Unavailable Ungerer, Alexandra Referring Unavailable Ungerer, Alexandra Attending Unavailable Malys, Sosa Primary Care Unavailable Charity Nina Referring Unavail able Charity Nina Attending Unavail able Malys, Sosa Referring Unavailable Cumberland, Nadira Primary Care Unavailable Ken Ruth NP Attending Unavailable Allergies Allergy Classification Reported Allergen(s) Allergy Type Date of Onset Reaction(s) Facility (2 sources) Adhesive Tape drug allergy 10-17-2010 redness [facility] Work Phone: (2 sources) penicillin g Drug Allergy 09-21-2010 [facility] Work Phone: (10 sources) Adhesive Tape; Translations: [adhesive tape] Allergy to substance 10-07-2021 [facility] (15 sources) Penicillins; Translations: [PENICILLINS] Allergy to substance 02-18-[address] [facility] (5 sources) Adhesive Tape; Translations: [ADHESIVE TAPE (ROSINS)] Allergy to substance 02-18-2012 Rash [facility] Medications Current Medications Medication Drug Class(es) Dates Sig (Normalized) Sig (Original) amoxicillin 875 mg / clavulanate 125 mg oral tablet (1 source) Penicillin-class Antibacterial Start: 09-05-2022 End: 09-10-2022 amoxicillin-clav ulanic acid (AUGMENTIN) 875-125 mg per tablet Take 1 tablet by mouth twice daily for 5 days. FOR 5 DAYS. 10 tablet 0 09/05/2022 09/10/2022 Active Comment on above: Take 1 tablet by anastacia twice daily for 5 days. FOR 5 DAYS. aspirin 81 mg chewable tablet (8 sources) Platelet Aggregation Inhibitor, Nonsteroidal Anti-inflammatory Drug Start: 03-22-2022 take 81 mg by mouth once daily Aspirin Active 81 MG PO DAILY March 22, 2022 12:00am BABY ASPIRIN ORA L Take by mouth. 0 Active Comment on above: Take by mouth. atorvastatin 10 mg oral tablet (15 sources) HMG-CoA Reductase Inhibitor Start: 4 take 1 tablet by mouth at bedtime Atorvastatin (Lipitor) 10 MG tablet Active 10 MG PO AT BEDTIME December 28, 2013 12:00am Comment on above: Take 10 mg by mouth once daily. escitalopram 20 mg oral tablet (17 sources) Serotonin Reuptake Inhibitor Start: 1 End: 7 take 1 tablet by mouth once daily Escitalopram Oxalate (Lexapro) 20 MG tablet Active 20 MG PO DAILY December 28, 2013 12:00am famotidine 20 mg oral tablet (19 sources) Histamine-2 Receptor Antagonist Start: 4 End: 2 take 1 tablet by mouth at bedtime Famotidine (Pepcid) 20 mg tablet Active 20 MG PO AT BEDTIME March 22, 2022 10:05am Start: 12-28-2013 take 20 mg by mouth once daily Famotidine Active 20 MG PO DAILY December 28, 2013 12:00am Start: 02-18-2012 take 2 tablets by mo [facility] once daily at bedtime famotidine 20 mg tablet Take 40 mg by mouth daily at bedtime. 0 02/18/2012 Active Comment on above: Take 40 mg by mouth daily at bedtime. LORazepam 0.5 mg oral tablet (11 sources) Benzodiazepine Start: 09-01-2020 take 0.5 mg by mouth once daily Lorazepam Active 0.5 MG PO DAILY September 01, 2020 12:00am Start: 03-26-2017 LORAZEPAM 0.5 MG TABS as directed LORAZEPAM [id number] Baldo Posadas MD ondansetron 4 mg disintegrating oral tablet (15 sources) Serotonin-3 Receptor Antagonist Start: 09-01-2020 take 4 mg by mouth every eight hours as needed Ondansetron Active 4 MG PO EVERY 8 HOURS NEEDED August 12, 2022 1:00am Comment on above: Take 4 mg by mouth e very 8 hours as needed for Nausea/Vomiting. pantoprazole 40 mg delayed release oral tablet (17 sources) Proton Pump Inhibitor Start: 03-22-2022 take 40 mg by mouth once daily Pantoprazole Active 40 MG PO DAILY March 22, 2022 12:00am Start: 09-09-2017 End: 03-22-2022 take 2 tablets by mouth once daily Pantoprazole (Protonix) 20 mg tablet,delayed release (DR/EC) Discontinued 40 MG PO DAILY September 09, 2017 12:00am March 22, 2022 10:08am Comment on above: Take 40 mg by mouth once daily. potassium chloride 10 meq extended release oral tablet (3 sources) Start: 08-13-19 take 10 mEq by mouth three times daily Potassium Chloride Active 10 MEQ PO THREE TIMES A DAY August 12, 2022 1:00am promethazine hydrochloride 25 mg oral tablet (3 sources) Phenothiazine Start: 08-13-19 take 25 mg by mouth every six hours as needed Promethazine Active 25 MG PO EVERY 6 HOURS NEEDED August 12, 2022 1:00am Completed/Discontinued Medications Medication Drug Class(es) Dates Sig (Normalized) Sig (Original) acetaminophen 500 mg oral tablet (4 sources) Start: 09-06-2020 take 2 tablets by mouth every six hours as needed acetaminophen (TYLENOL) 500 mg tablet Take 2 tablets by mouth every 6 hours as needed. MAX: 3000mg per 24 hours 0 09/06/2020 Active Comment on above: Take 2 tablets by mo [facility] every 6 hours as needed. MAX: 3000mg per 24 hours acetaminophen 325 mg / HYDROcodone bitartrate 5 mg oral tablet (9 sources) Opioid Agonist Start: 03-10-2018 End: 03-13-2018 take 1 tablet by mouth every six hours as needed Hydrocodone-Acetamin ophen Discontinued 1 TABLET PO EVERY 6 HOURS NEEDED 10 3 March 10, 2018 12:00am March 13, 2018 12:10am acetaminophen 325 mg / oxyCODONE hydrochloride 5 mg oral tablet (4 sources) Opioid Agonist Start: 01-30-2012 End: 03-18-2017 take 1-2 tablets by mouth four times daily as needed for pain PERCOCET 5-325 MG TABS one to two tablets by mouth four times daily as needed for pain OXYCODONE-ACETAMINOP HEN [id number] Cheryl Quinteros RN calcium (2 sources) Phosphate Binder, Calcium Start: 03-26-2017 take 1 tablet by mouth once daily CALCIUM 600 MG TABS One tablet by mouth daily CALCIUM [id number] Baldo Posadas MD cholecalciferol 02167 unt oral capsule (6 sources) Vitamin D Start: 03-26-2017 take 1 tablet by mouth once daily VITAMIN D3 97121 UNIT CAPS One tablet by mouth daily CHOLECALCIFEROL [id number] Baldo Posadas MD Start: 02-18-2012 take 1 capsule by [facility] once daily in the evening Cholecalciferol, Vitamin D3, 5,000 unit cap Take 5,000 Units by mouth every evening. 0 02/18/2012 Active Comment on above: Take 5,000 Units by mouth every evening. ERGOCALCIFEROL CAPS (8 sources) Provitamin D2 Compound Start: 05-03-2014 DRISDOL CAPS as directed ERGOCALCIFEROL CAPS [id number] Malgorzata Goodwin Start: 05-03-2014 End: 03-18-2017 DRISDOL CAPS as directed 201 09/17/24 ERGOCALCIFEROL CAPS [id number] Cheryl Quinteros RN Start: 09-21-2010 End: 03-18-2017 VITAMIN D (ERGOCALCIFEROL) 5 0000 UNIT CAPS ERGOCALCIFEROL [id number] Cheryl Quinteros RN Start: 09-21-2010 VITAMIN D (ERG OCALCIFEROL) 66355 UNIT CAPS ERGOCALCIFEROL [id number] Lillie Ly esomeprazole 40 mg delayed release oral capsule (4 sources) Proton Pump Inhibitor Start: 09-21-2010 End: 03-18-2017 NEXIUM 40 MG CPDR ESOMEPRAZOLE MAGNESIUM [id number] Lillie Ly levoFLOXacin 500 mg oral tablet (4 sources) Quinolone Antimicrobial Start: 01-30-2012 End: 03-18-2017 take 1 tablet by mouth once daily LEVAQUIN 500 MG TABS One tablet by mouth daily LEVOFLOXACIN [id number] Cheryl Quinteros RN levothyroxine sodium 0.05 mg oral tablet (13 sources) l-Thyroxine Start: 11-16-2019 take 1 tablet by mouth once daily levothyroxine (SYNTHROID) 50 mcg tablet Take 50 mcg by mouth once daily. 0 11/16/2019 Active Start: 05-07-2019 take 50 mg by mouth once daily Levothyroxine Active 50 MG PO DAILY May 07, 2019 1:00am Comment on above: Take 50 mcg by mouth once daily. methylPREDNISolone acetate 40 mg/ml injectable suspension (2 sources) Corticosteroid Start: 11-30-2020 End: 11-30-2020 Depo-Medrol (methylprednisolone acetate) 40 mg/mL suspension for injection Discontinued 40 MG INTRAARTIC ONCE 1 November 30, 2020 12:11pm November 30, 2020 1:56pm 24 hr metoprolol succinate 25 mg extended release oral tablet (17 sources) beta-Adrenergic Molly Start: 09-21-2010 METOPROLOL TARTRATE 25 MG TABS METOPROLOL TARTRATE [id number] Lillie Ly Start: 09-21-2010 take 1 tablet by anastacia th once daily metoprolol succinate XL, long acting, 25 mg 24 hr tablet Take 1 tablet by mouth once daily. 0 02/18/2012 Active Comment on above: Take 1 tablet by anastacia th once daily. nortriptyline 10 mg oral capsule (20 sources) Tricyclic Antidepressant Start: 12-29-19 14 End: 03-22-20 take 35 mg by mouth at bedtime Nortriptyline Discontinued 35 MG PO AT BEDTIME December 28, 2013 12:00am March 22, 2022 9:45am Start: 02-18-2012 take 1 capsule by mo uth once daily at bedtime nortriptyline 25 mg capsule Take 1 capsule by mouth daily at bedtime. 0 02/18/2012 Active Start: 09-21-2010 End: 03-22-2022 take 1 capsule by mouth once daily at bedtime nortriptyline 10 mg capsule Take 1 capsule by mouth daily at bedtime. 0 02/18/2012 Active Comment on above: Take 1 capsule by mo uth daily at bedtime. simvastatin 20 mg oral tablet (4 sources) HMG-CoA Reductase Inhibitor Start: 011 End: SIMVASTATIN 20 MG TABS SIMVASTATIN [id number] Cheryl Quinteros RN sulfamethoxazole 800 mg / trimethoprim 160 mg oral tablet (9 sources) Dihydrofolate Reductase Inhibitor Antibacterial, Sulfonamide Antimicrobial Start: 018 End: take 1 tablet by mouth every twelve hours Sulfamethoxazole-Tr imethoprim (Bactrim Ds) 800-160 mg tablet Discontinued 1 TABLET PO Q12H 14 7 April 28, 2018 1:00am May 04, 2018 10:11am triamcinolone acetonide 40 mg/ml injectable suspension (4 sources) Corticosteroid Start: End: Kenalog (triamcinolone acetonide) 40 mg/mL suspension for injection Discontinued 80 MG INTRAARTIC ONCE 2 February 08, 2020 1:07pm February 08, 2020 2:15pm Start: 01-12-2019 End: 01-12-2019 Kenalog (triamcinolone aceto nide) 40 mg/mL suspension for injection Discontinued 80 MG INTRAARTIC ONCE 2 January 12, 2019 1:59pm January 12, 2019 3:12pm liothyronine sodium 0.005 mg oral tablet (20 sources) l-Triiodothyronine Start: 03-22-2022 End: 03-22-2022 take 15 ug by mouth once daily Liothyronine Discontinued 15 MCG PO DAILY March 22, 2022 9:44am March 22, 2022 10:08am Start: 03-10-2018 End: 03-22-2022 take 5 ug by mouth twice daily Liothyronine Active 5 M CG PO TWICE A DAY March 22, 2022 10:06am Start: 09-21-2010 take 1 tablet by anastacia th once daily CYTOMEL 5 MCG TABS One tablet by mouth daily LIOTHYRONINE SODIUM [id number] Cheryl Quinteros RN Comment on above: Take 5 mcg by mouth twice daily. vitamin b12 5 mg oral capsule (4 sources) Vitamin B12 take 1 capsule by mouth once daily in the morning cyanocobalamin, vitamin B-12, 5,000 mcg cap Take 1 capsule by mouth every morning. 0 Active Comment on above: Take 1 capsule by mo uth every morning. Problems Active Problems Problem Classification Problem Date Documented Da te Episodic/Chronic Abdominal hernia (9 sources) Hiatal hernia; Translations: [Diaphragmatic hernia without obstruction or gangrene] 03-22-2022 Episodic Abdominal pain (12 sources) Right lower quadrant pain; Translations: [Left lower quadrant pain] Onset: 3 Resolved: 7 05-21-2011 Episodic Acute cerebrovascular disease (12 sources) Cerebral hemorrhage; Translations: [Nontraumatic intracerebral hemorrhage, unspecified] Onset: 1 09-06-2020 Chronic Cardiac dysrhythmias (7 sources) Ectopic beats; Translations: [Other premature depolarization] Chronic Cardiac dysrhythmias (9 sources) Palpitations; Translations: [Palpitations] Onset: 7 03-18-2017 Episodic Coronary atherosclerosis and other heart disease (4 sources) Atherosclerotic heart disease of [place] coronary artery with unspecified angina pectoris; Translations: [Atherosclerotic heart disease of [place] coronary artery with unspecified angina pectoris] Onset: 7 Resolved: 7 03-18-2017 Chronic Diabetes mellitus without complication (10 sources) Prediabetes; Translations: [Prediabetes] Onset: 5 05-02-2018 Episodic Disorders of lipid metabolism (14 sources) Hyperlipidemia; Translations: [Hyperlipidemia, unspecified] Onset: 7 03-18-2017 Chronic Esophageal disorders (10 sources) Gastroesophageal reflux disease; Translations: [Gastro-esophageal reflux disease without esophagitis] Onset: 5 05-02-2018 Chronic Essential hypertension (12 sources) Benign hypertension; Translations: [Essential (primary) hypertension] Chronic Fluid and electrolyte disorders (17 sources) Hypokalemia; Translations: [Hypokalemia] 08-12-2022 Episodic Intestinal infection (9 sources) Viral gastroenteritis; Translations: [Viral intestinal infection, unspecified] 10-15-2021 Episodic Intracranial injury (9 sources) Concussion with no loss of consciousness; Translations: [Concussion without loss of consciousness, initial encounter] 03-11-2018 Episodic Mood disorders (1 source) Major depressive disorder, single episode, unspecified; Translations: [Major depressive disorder, single episode, unspecified] Onset: Chronic Nausea and vomiting (3 sources) Nausea, vomiting and diarrhea; Translations: [Nausea with vomiting, unspecified] 08-12-2022 Episodic Noninfectious gastroenteritis (9 sources) Gastroenteritis; Translations: [Noninfective gastroenteritis and colitis, unspecified] 09-02-2020 Episodic Other bone disease and musculoskeletal deformities (1 source) Other specified disorders of bone density and structure, unspecified site; Translations: [Other specified disorders of bone density and structure, unspecified site] Onset: 5 Episodic Other connective tissue disease (9 sources) Impingement syndrome of shoulder region; Translations: [Impingement syndrome of right shoulder] 03-21-2021 Episodic Other connective tissue disease (9 sources) Pain in left lower limb; Translations: [Pain in left leg] 03-22-2022 Episodic Other ear and sense organ disorders (9 sources) Hearing loss; Translations: [Unspecified hearing loss, unspecified ear] 05-02-2018 Chronic Other gastrointestinal disorders (2 sources) Diarrhea; Translations: [Diarrhea, unspecified] 08-15-2022 Episodic Other gastrointestinal disorders (1 source) Constipation, unspecified; Translations: [Constipation, unspecified constipation type] Onset: 4 Episodic Other injuries and conditions due to external causes (9 sources) Systemic inflammatory response syndrome; Translations: [Systemic inflammatory response syndrome (SIRS) of non-infectious origin without acute organ dysfunction] 03-22-2022 Episodic Other non-traumatic joint disorders (9 sources) Pain in left knee; Translations: [Left knee pain] 03-22-2022 Episodic Other non-traumatic joint disorders (9 sources) Shoulder pain; Translations: [Pain in right shoulder] 03-21-2021 Episodic Other nutritional; endocrine; and metabolic disorders (9 sources) Obesity; Translations: [Obesity, unspecified] 05-02-2018 Chronic Other nutritional; endocrine; and metabolic disorders (4 sources) Obese class II; Translations: [Obesity, unspecified] Onset: 1 09-06-2020 Chronic Other nutritional; endocrine; and metabolic disorders (9 sources) H/O: raised blood lipids; Translations: [Personal history of other endocrine, nutritional and metabolic disease] 03-22-2022 Episodic Other upper respiratory infections (1 source) Chronic sinusitis, unspecified; Translations: [Chronic sinusitis, unspecified] Onset: 5 Chronic Screening and history of mental health and substance abuse codes (9 sources) H/O: depression; Translations: [Personal history of other mental and behavioral disorders] 03-22-2022 Episodic Spondylosis; intervertebral disc disorders; other back problems (13 sources) Neck pain; Translations: [Low back pain] Onset: 7 11-15-2016 Episodic Sprains and strains (3 sources) Sprain of carpal joint of unspecified wrist, initial encounter; Translations: [Strain of muscle, fascia and tendon of lower back, initial encounter] Onset: 7 10-25-2016 Episodic Thyroid disorders (10 sources) Hypothyroidism; Translations: [Hypothyroidism, unspecified] Onset: 5 09-01-2020 Chronic Unclassified (2 sources) Preoperative cardiovascular examination ; Translations: [Encounter for preprocedural cardiovascular examination] Onset: 7 03-18-2017 Unclassified (2 sources) Long-term drug therapy; Translations: [Other halfway (current) drug therapy] Onset: 7 03-18-2017 Unclassified (2 sources) Low back pain, unspecified; Translations: [Low back pain, unspecified] Onset: 5 Viral infection (9 sources) Viral disease; Translations: [Viral infection, unspecified] 03-21-2021 Episodic Past or Other Problems Problem Classification Problem Date Documented Da te Episodic/Chronic Bacterial infection; unspecified site (1 source) Other specified bacterial agents as the cause of diseases classified elsewhere; Translations: [Other specified bacterial agents as the cause of diseases classified elsewhere] Onset: 5 Episodic Crushing injury or internal injury (4 sources) Crushing injury of hand; Translations: [Crushing injury of unspecified hand, initial encounter] Onset: 2 02-25-2012 Episodic E Codes: Transport; not MVT (4 sources) Animal-rider injured by fall from or being thrown from horse in noncollision accident, initial encounter; Translations: [Accident involving animal being ridden injuring rider of animal] Onset: 1 09-06-2020 Episodic Fracture of upper limb (10 sources) Nondisplaced fracture of base of fifth metacarpal bone, right hand, subsequent encounter for fracture with routine healing; Translations: [Displaced fracture of base of fifth metacarpal bone, right hand, subsequent encounter for fracture with delayed healing] Onset: 2 07-25-2016 Episodic Genitourinary symptoms and ill-defined conditions (2 sources) Finding of sensation of bladder; Translations: [Other symptoms and signs involving the genitourinary system] Onset: 3 09-03-2022 Episodic Nonspecific chest pain (11 sources) Chest pain; Translations: [Chest pain, unspecified] Onset: 7 03-18-2017 Episodic Open wounds of extremities (4 sources) Laceration with foreign body of unspecified hand, initial encounter; Translations: [Laceration with foreign body of unspecified hand, initial encounter] Onset: 2 Resolved: 7 03-22-2012 Episodic Other and unspecified benign neoplasm (12 sources) Hemangioma; Translations: [Dermatofibroma] Resolved: 7 01-16-2011 Episodic Other circulatory disease (4 sources) Non-neoplastic nevus; Translations: [Nevus, non-neoplastic] Resolved: 7 03-18-2017 Episodic Other connective tissue disease (4 sources) Bursitis of shoulder; Translations: [Disorder of rotator cuff] Onset: 7 11-15-2016 Episodic Other connective tissue disease (1 source) Pain in left upper arm; Translations: [Left axillary pain] Onset: 3 Episodic Other gastrointestinal disorders (8 sources) Constipation by outlet obstruction; Translations: [Dysphagia, unspecified] Resolved: 7 05-21-2011 Episodic Other lower respiratory disease (1 source) Other forms of dyspnea; Translations: [Other forms of dyspnea] Onset: 4 Episodic Other non-epithelial cancer of skin (4 sources) Personal history of other malignant neoplasm of skin; Translations: [Personal history of other malignant neoplasm of skin] Onset: 1 Resolved: 7 01-16-2011 Episodic Other non-traumatic joint disorders (10 sources) Ankle pain; Translations: [Shoulder pain] Onset: 4 Resolved: 7 03-25-2017 Episodic Other skin disorders (8 sources) Skin tag; Translations: [Lentigo] Resolved: 7 01-16-2011 Episodic Other upper respiratory infections (10 sources) Acute sinusitis; Translations: [Acute sinusitis, unspecified] Onset: 4 03-22-2022 Episodic Residual codes; unclassified (4 sources) History of cardiac catheterization; Translations: [Other specified postprocedural states] Onset: 8 03-22-2022 Episodic Skin and subcutaneous tissue infections (4 sources) Cellulitis and abscess of hand, except fingers and thumb; Translations: [Cellulitis and abscess of hand, except fingers and thumb] Onset: 2 Resolved: 7 03-22-2012 Episodic Superficial injury; contusion (17 sources) Contusion of foot; Translations: [Contusion of chest] Onset: 4 Resolved: 7 05-03-2014 Episodic Unclassified (2 sources) Electrocardiogram abnormal; Translations: [Abnormal electrocardiogram [ECG] [EKG]] Onset: 7 03-26-2017 Episodic Unclassified (7 sources) history of right hand surgery 03-22-2022 Results Test Name Value Interpretation Reference Range Facility Internal Medicine Office Vis jody 11-09-2024 Internal Medicine Office Visit [facility] [address] [place] [address] [place] [address] OFFICE VISIT Date of Service: 11/09/24 MR#: [id number] Acct: [id number] Name: EMMA HINES Rep #: [id number] : 1955 Provider: JULIANN conway Age/Sex: 69/F Location: [facility] Status: Signed Intake Vital Signs 10/13/24 09:58 11/09/24 15:12 Height 5 ft 3 in 5 ft 3 in Weight: 183 lb 179 lb BMI 32.4 31.6 BP 116/76 122/74 H Blood Pressure Location Lt brachial Lt brachial Position Sitting Sitting Respiration 14 16 Pulse 72 72 Pulse Source Monitor Monitor Temp 98.6 F 97.6 F L Temp Source Temporal Temporal Pulse Oximetry (%) 96 97 Oxygen Delivery Method room air room air Intake Visit Reasons: BACK PAIN - GO OVER XRAY Spent Grain Dryer Required: No Is patient in pain?: Yes (L lumbar) Pain scale (1-10): 6 Allergies adhesive tape Allergy (Verified 11/09/24 14:57) Rash Penicillins Allergy (Verified 11/09/24 14:57) Hives Medications ???Medication ???Instructions ???Recorded ???Confirmed ???Type atorvastatin 10 mg tablet (Lipitor) 10 mg PO QHS 12/28/13 11/09/24 History lorazepam 0.5 mg tablet 0.5 mg PO DAILY PRN Anxiety 11/09/24 History aspirin 81 mg chewable tablet 81 mg PO DAILY #1 TAB 03/22/2208/31 Rx cholecalciferol (vitamin D3) 25 25 mcg PO DAILY 07/14/23 11/09/24 History mcg (1,000 unit) capsule sennosides 8.6 mg-docusate sodium 1 tab-cap PO QHS 08/19/24 5 History 50 mg capsule (Stool Softener-Stimulant Laxative) escitalopram oxalate 20 mg tablet 20 mg PO DAILY #90 tabs 08/23/24 11/09/24 Rx (Lexapro) levothyroxine 50 mcg tablet 50 mcg PO DAILY #90 tabs 08/23/24 11/09/24 Rx liothyronine 5 mcg tablet 5 mcg PO BID #180 tabs 08/23/24 Rx nortriptyline 10 mg capsule 10 mg PO QHS #90 caps 08/23/2408/31 Rx nortriptyline 25 mg capsule 25 mg PO QHS #90 caps 08/23/2408/31 Rx famotidine 20 mg tablet (Pepcid) 20 mg PO QHS #90 tabs 09/30/2408/31 Rx metoprolol succinate 25 mg 25 mg PO DAILY #90 tabs 10/11/24 0 11/09/24 Rx tablet,extended release 24 hr pantoprazole 40 mg tablet,delayed 40 mg PO DAILY #90 tabs 10/11/24 11/09/24 Rx release cyclobenzaprine 10 mg tablet 10 mg PO TID PRN muscle spasm #20 11/08/24 11/09/24 Rx tabs prednisone 50 mg tablet 50 mg PO QDAY #6 tabs 11/08/2408/31 Rx Have you fallen in the past year?: No Nurse's Note: Pt was doing yard work over the weekend and lifting heavy bags of mulch. Pt states it hurt a little bit but not as bad as yesterday yesterday she states she felt something spasming. Has done PT in the past as she has had back issues before. Pt states since starting flexril and prednisone pain has decreased to 5/10. States she just carried groceries and it is a little angry a 6/10. Lifting seems to make it worse. 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 Pt states she does have to help dress and shower him. Does not do lifting of him. Pt states the pain is worse on L side but does get tingling down both legs which happens when she is walking off and on. Pt states she is unable to bend twist and do all ADL's w/o pain. Pt denies loss of bowel or bladder control. [facility] Medical History Lumbar radiculopathy Acute lumbar myofascial strain Bacterial sinusitis Head trauma Osteopenia Vitamin deficiency (06/09/04) Migraines (06/09/99) IBS (irritable bowel syndrome) (06/09/84) High cholesterol (06/09/84) Hearing difficulty (06/09/19) Gallstone (06/09/96) Bone fracture (11/12/98) Back problem (06/09/74) GERD (gastroesophageal reflux disease) MDD (major depressive disorder) Intertrigo Abdominal panniculus Recent weight loss Family history of skin cancer Late effect of open wound with trauma Toxic effect of unspecified spider venom, accidental (unintentional), sequela Pyogenic granuloma of skin and subcutaneous tissue Injury caused by animal Localized swelling on right hand History of left heart catheterization (LHC) ( 08/13/07) Left knee pain Left leg pain Impingement syndrome of right shoulder Hiatal hernia SIRS (systemic inflammatory response syndrome) Depression Anemia Shoulder pain Skin cancer Hx of familial combined hyperlipidemia History of depression Surgical History History of surgical procedure H/O endoscopy History of colonoscopy (06/09/16) Hx of cataract surgery History of skin graft History of incision and drainage History of hand surgery History of cholecystectomy History of repair of ACL Family History Father Cancer Lung/Skin Mother CVA (cereb (more content not included)... Normal [facility] Lumbar Spine 2 or 3 Viewson 11-08-2024 Lumbar Spine 2 or 3 Views [facility] [address] [place] [address] Lumbar Spine 2 or 3 Views MR#: [id number] Acct: [id number] Name: EMMA HINES Rep #: [id number] : 1955 F 69 From: Tristan Sousa MD PCP: Dr. Nadira Jackman MD Status: REG CLI Study: Lumbar Spine 2 or 3 Views Date of Exam: Exam# [id number] Ordering Dr: Migue Paz PA EXAM: XR Lumbosacral Spine, 2 or 3 Views CLINICAL INDICATION: PAIN, RECENTLY LIFTED SOMETHING HEAVY TECHNIQUE: Frontal and lateral views of the lumbar spine and sacrum. COMPARISON: No relevant prior studies available. FINDINGS: VERTEBRAE: Mild compression deformity of the superior endplate of L5 vertebral body. This can be further evaluated with MRI. Multilevel endplate degenerative change and disc disease of the visualized spine, most prominent from L4-S1. Normal alignment. SACRUM/COCCYX: Unremarkable as visualized. No acute fracture. DISC SPACES: See above. SOFT TISSUES: Unremarkable. RAD/Lumbar Spine 2 or 3 Views IMPRESSION: 1. Mild compression deformity of the superior endplate of L5 vertebral body. This can be further evaluated with MRI. 2. Degenerative changes as above. Reading Location: [facility] CC: Dr. Nadira Jackman MD; DEJA Fox [place] Supervisor: Signed Normal [facility] Urgent Care Visit Reporton 0 11-08-2024 Urgent Care Visit Report [facility] [address], [address] [place] [address] OFFICE VISIT Date of Service: 11/08/24 MR#: [id number] Acct: [id number] Name: EMMA HINES Rep #: [id number] : 1955 Provider: DEJA Fox Age/Sex: 69/F Location: [facility] Status: Signed Intake Vital Signs 10/13/24 09:58 11/08/24 12:18 Height 5 ft 3 in Weight: 183 lb BMI 32.4 BP 116/76 132/70 H Blood Pressure Location Lt brachial Position Sitting Sitting Respiration 14 Pulse 72 74 Pulse Source Monitor Temp 98.6 F 98.3 F Temp Source Temporal Oral Pulse Oximetry (%) 96 97 Oxygen Delivery Method room air room air Intake Visit Reasons: BACK STRAIN Accompanied by: Self Allergies adhesive tape Allergy (Verified 11/08/24 12:22) Rash Penicillins Allergy (Verified 11/08/24 12:22) Hives Medications ???Medication ???Instructions ???Recorded ???Confirmed ???Type atorvastatin 10 mg tablet (Lipitor) 10 mg PO QHS 12/28/13 11/08/24 History lorazepam 0.5 mg tablet 0.5 mg PO DAILY PRN Anxiety 11/08/24 History aspirin 81 mg chewable tablet 81 mg PO DAILY #1 TAB 03/22/2208/03 Rx cholecalciferol (vitamin D3) 25 25 mcg PO DAILY 07/14/23 11/08/24 History mcg (1,000 unit) capsule sennosides 8.6 mg-docusate sodium 1 tab-cap PO QHS 08/19/24 5 History 50 mg capsule (Stool Softener-Stimulant Laxative) escitalopram oxalate 20 mg tablet 20 mg PO DAILY #90 tabs 08/23/24 11/08/24 Rx (Lexapro) levothyroxine 50 mcg tablet 50 mcg PO DAILY #90 tabs 08/23/24 11/08/24 Rx liothyronine 5 mcg tablet 5 mcg PO BID #180 tabs 08/23/24 Rx nortriptyline 10 mg capsule 10 mg PO QHS #90 caps 08/23/2408/03 Rx nortriptyline 25 mg capsule 25 mg PO QHS #90 caps 08/23/2408/03 Rx famotidine 20 mg tablet (Pepcid) 20 mg PO QHS #90 tabs 09/30/2408/03 Rx metoprolol succinate 25 mg 25 mg PO DAILY #90 tabs 10/11/24 0 11/08/24 Rx tablet,extended release 24 hr pantoprazole 40 mg tablet,delayed 40 mg PO DAILY #90 tabs 10/11/24 11/08/24 Rx release cyclobenzaprine 10 mg tablet 10 mg PO TID PRN muscle spasm #20 11/08/24 11/08/24 Rx tabs prednisone 50 mg tablet 50 mg PO QDAY #6 tabs 11/08/2408/03 Rx Have you fallen in the past year?: No Nurse's Note: Patient has lower back pain more on the left side. Patient states this has been going on for a couple days. Patient does have arthritis in her back. [facility] Medical History (Updated 11/08/24 @ 14:10 by Migue SHORT, PA) Lumbar radiculopathy Acute lumbar myofascial strain Bacterial sinusitis Head trauma Osteopenia Vitamin deficiency (06/09/04) Migraines (06/09/99) IBS (irritable bowel syndrome) (06/09/84) High cholesterol (06/09/84) Hearing difficulty (06/09/19) Gallstone (06/09/96) Bone fracture (11/12/98) Back problem (06/09/74) GERD (gastroesophageal reflux disease) MDD (major depressive disorder) Intertrigo Abdominal panniculus Recent weight loss Family history of skin cancer Late effect of open wound with trauma Toxic effect of unspecified spider venom, accidental (unintentional), sequela Pyogenic granuloma of skin and subcutaneous tissue Injury caused by animal Localized swelling on right hand History of left heart catheterization (LHC) ( 08/13/07) Left knee pain Left leg pain Impingement syndrome of right shoulder Hiatal hernia SIRS (systemic inflammatory response syndrome) Depression Anemia Shoulder pain Skin cancer Hx of familial combined hyperlipidemia History of depression Surgical History History of surgical procedure H/O endoscopy History of colonoscopy (06/09/16) Hx of cataract surgery History of skin graft History of incision and drainage History of hand surgery History of cholecystectomy History of repair of ACL Family History Father Cancer Lung/Skin Mother CVA (cerebral vascular accident) Uncle Myocardial infarction Social History adopted: No household members: spouse and children number of children: 1 current occupational status: 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 Normal [facility] Internal Medicine Office Vis jody 10-12-2024 Internal Medicine Office Visit [facility] [address] [place] [address] [place] [address] OFFICE VISIT Date of Service: 10/13/24 MR#: [id number] Acct: [id number] Name: EMMA HINES Rep #: [id number] : 1955 Provider: Dr. Nadira fonseca MD Age/Sex: 68/F Location: [facility] Status: Signed Intake Vital Signs 04/14/24 09:02 09/09/24 09:58 10/13/24 09:58 Height 5 ft 3 in 5 ft 3 in 5 ft 3 in Weight: 183 lb BMI 32.4 BP 116/76 Blood Pressure Location Lt brachial Position Sitting Respiration 14 Pulse 72 Pulse Source Monitor Temp 98.6 F Temp Source Temporal Pulse Oximetry (%) 96 Oxygen Delivery Method room air Intake Visit Reasons: 6 M FU Spent Grain Dryer Required: No Is patient in pain?: No Allergies adhesive tape Allergy (Verified 10/13/24 09:54) Rash Penicillins Allergy (Verified 10/13/24 09:54) Hives Medications ???Medication ???Instructions ???Recorded ???Confirmed ???Type atorvastatin 10 mg tablet (Lipitor) 10 mg PO QHS 12/28/13 10/13/24 History lorazepam 0.5 mg tablet 0.5 mg PO DAILY PRN Anxiety 10/13/24 History aspirin 81 mg chewable tablet 81 mg PO DAILY #1 TAB 03/22/2212/31 Rx cholecalciferol (vitamin D3) 25 25 mcg PO DAILY 07/14/23 10/13/24 History mcg (1,000 unit) capsule sennosides 8.6 mg-docusate sodium 1 tab-cap PO QHS 08/19/24 5 History 50 mg capsule (Stool Softener-Stimulant Laxative) escitalopram oxalate 20 mg tablet 20 mg PO DAILY #90 tabs 08/23/24 10/13/24 Rx (Lexapro) levothyroxine 50 mcg tablet 50 mcg PO DAILY #90 tabs 08/23/24 10/13/24 Rx liothyronine 5 mcg tablet 5 mcg PO BID #180 tabs 08/23/24 Rx nortriptyline 10 mg capsule 10 mg PO QHS #90 caps 08/23/2412/31 Rx nortriptyline 25 mg capsule 25 mg PO QHS #90 caps 08/23/2412/31 Rx famotidine 20 mg tablet (Pepcid) 20 mg PO QHS #90 tabs 09/30/2412/31 Rx metoprolol succinate 25 mg 25 mg PO DAILY #90 tabs 10/11/24 0 10/13/24 Rx tablet,extended release 24 hr pantoprazole 40 mg tablet,delayed 40 mg PO DAILY #90 tabs 10/11/24 10/13/24 Rx release Have you fallen in the past year?: No PFSH Medical History Bacterial sinusitis Head trauma Osteopenia Vitamin deficiency (06/09/04) Migraines (06/09/99) IBS (irritable bowel syndrome) (06/09/84) High cholesterol (06/09/84) Hearing difficulty (06/09/19) Gallstone (06/09/96) Bone fracture (11/12/98) Back problem (06/09/74) GERD (gastroesophageal reflux disease) MDD (major depressive disorder) Intertrigo Abdominal panniculus Recent weight loss Family history of skin cancer Late effect of open wound with trauma Toxic effect of unspecified spider venom, accidental (unintentional), sequela Pyogenic granuloma of skin and subcutaneous tissue Injury caused by animal Localized swelling on right hand History of left heart catheterization (LHC) ( 08/13/07) Left knee pain Left leg pain Impingement syndrome of right shoulder Hiatal hernia SIRS (systemic inflammatory response syndrome) Depression Anemia Shoulder pain Skin cancer Hx of familial combined hyperlipidemia History of depression Surgical History History of surgical procedure H/O endoscopy History of colonoscopy (06/09/16) Hx of cataract surgery History of skin graft History of incision and drainage History of hand surgery History of cholecystectomy History of repair of ACL Family History Father Cancer Lung/Skin Mother CVA (cerebral vascular accident) Uncle Myocardial infarction Social History adopted: No household members: spouse and children number of children: 1 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 She is due for some routine blood work and is up to date on her screening. She doesn't want any pneumonia vaccines. She doesn't smoke and doesn't need any refills. She reports she is trying to healthy. She is following a diet program (metabolic reset program) and is down 38 pounds since she was last seen. She hasn't been as active and she'd like. The patient has a history of IBS and GERD. She is following with (more content not included)... Normal [facility] Cardiology Visit Reporton Cardiology Visit Report [facility] [place] [address] OFFICE VISIT Date of Service: 09/09/24 MR#: [id number] Acct: [id number] Name: EMMA HINES Rep #: [id number] : 1955 Provider: JULIANN walker Age/Sex: 68/F Location: [facility] Status: Signed HPI HPI History of Present Illness Details: Emma Hines is a 68 -year-old white female who presents today for an urgent appt. She established with us in March 2022 based upon concerns of chest discomfort. This has included a transthoracic echocardiogram, and a pharmacologic stress nuclear imaging study. She also has undergone diagnostic cardiac catheterization in the past in 2007. She has had a Holter monitor performed in the past as well based upon concerns of palpitations. Her previous studies have not led to a need for coronary revascularization therapy or electrophysiologic evaluation. She has been treated medically. She underwent echocardiogram on 04/04/2022 to evaluate chest pain further. This showed ejection fraction of 70% and no regional wall motion abnormalities. She had stress test on 04/04/2022 that was negative for ischemia. She denies chest, arm, jaw, or neck discomfort. She states infrequent palpitations that she attributes to diet such as sugary food. She acknowledges ongoing bilateral lower extremity [place] is unchanged from previous. She denies claudication. She denies shortness of breath with activity, shortness of breath at rest, orthopnea, or PND. She denies chronic cough. She denies significant, sudden weight gain. She denies lightheadedness, dizziness, near-syncope, or syncope. She denies blood in urine, blood in stool, or epistaxis. He denies fever with chills. She denies myalgia. She denies fatigue. Her exercise level has remained stable. Intake Vital Signs 11/07/23 10:25 05/19/24 11:25 07/20/24 16:25 08/23/24 11:30 09/09/24 09:58 Height 5 ft 3 in 5 ft 3 in 5 ft 3 in 5 ft 3 in 5 ft 3 in Weight: 191 lb BMI 33.8 BP 107/71 Blood Pressure Location Lt brachial Position Sitting Respiration 16 Pulse 73 Pulse Source NIBP Intake Visit Reasons: 1 Y FU Spent Grain Dryer Required: No Is patient in pain?: No Allergies adhesive tape Allergy (Verified 09/09/24 09:59) Rash Penicillins Allergy (Verified 09/09/24 09:59) Hives Medications ???Medication ???Instructions ???Recorded ???Confirmed ???Type atorvastatin 10 mg tablet (Lipitor) 10 mg PO QHS 12/28/13 09/09/24 History metoprolol succinate 25 mg 25 mg PO DAILY 12/28/13 09/09/24 H istory tablet,extended release 24 hr lorazepam 0.5 mg tablet 0.5 mg PO DAILY PRN Anxiety 09/09/24 History aspirin 81 mg chewable tablet 81 mg PO DAILY #1 TAB 03/22/2208/31 Rx cholecalciferol (vitamin D3) 25 25 mcg PO DAILY 07/14/23 09/09/24 History mcg (1,000 unit) capsule famotidine 20 mg tablet (Pepcid) 20 mg PO QHS #90 tabs 03/30/2408/31 Rx pantoprazole 40 mg tablet,delayed 40 mg PO DAILY #90 tabs 03/30/24 09/09/24 Rx release sennosides 8.6 mg-docusate sodium 1 tab-cap PO QHS 08/19/24 5 History 50 mg capsule (Stool Softener-Stimulant Laxative) escitalopram oxalate 20 mg tablet 20 mg PO DAILY #90 tabs 08/23/24 09/09/24 Rx (Lexapro) levothyroxine 50 mcg tablet 50 mcg PO DAILY #90 tabs 08/23/24 09/09/24 Rx liothyronine 5 mcg tablet 5 mcg PO BID #180 tabs 08/23/24 Rx nortriptyline 10 mg capsule 10 mg PO QHS #90 caps 08/23/2408/31 Rx nortriptyline 25 mg capsule 25 mg PO QHS #90 caps 08/23/2408/31 Rx Ejection fraction %: 70 Have you fallen in the past year?: No [facility] Medical History Bacterial sinusitis Head trauma Osteopenia Vitamin deficiency (06/09/04) Migraines (06/09/99) IBS (irritable bowel syndrome) (06/09/84) High cholesterol (06/09/84) Hearing difficulty (06/09/19) Gallstone (06/09/96) Bone fracture (11/12/98) Back problem (06/09/74) GERD (gastroesophageal reflux disease) MDD (major depressive disorder) Intertrigo Abdominal panniculus Recent weight loss Family history of skin cancer Late effect of open wound with trauma Toxic effect of unspecified spider venom, accidental (unintentional), sequela Pyogenic granuloma of skin and subcutaneous tissue Injury caused by animal Localized swelling on right hand History of left heart catheterization (LHC) ( 08/13/07) Left knee pain Left leg pain Impingement syndrome of right shoulder Hiatal hernia SIRS (systemic inflammatory response syndrome) Depression Anemia Shoulder pain Skin cancer Hx of familial combined hyperlipidemia History of depression Surgical History History of surgical procedure H/O endoscopy (more content not included)... Normal [facility] MR/BMS.BPon 09-07-2024 MR/BMS.BP [facility], [address] [place] [address] OFFICE VISIT Date of Service: 09/07/24 MR#: [id number] Acct: [id number] Name: EMMA HINES Rep #: [id number] : 1955 Provider: SIERRA reilly Age/Sex: 68/F Location: [facility] Status: Signed Intake Vital Signs 06/15/24 12:52 08/23/24 11:30 09/07/24 15:09 Height 5 ft 3 in 5 ft 3 in 5 ft 3 in BP Intake Visit Reasons: follow up Allergies adhesive tape Allergy (Verified 07/13/24 13:26) Rash Penicillins Allergy (Verified 07/13/24 13:26) Hives Have you fallen in the past year?: No PFS Medical History (Updated 08/19/24 @ 14:45 by DEJA Khan) Bacterial sinusitis Head trauma Osteopenia Vitamin deficiency (06/09/04) Migraines (06/09/99) IBS (irritable bowel syndrome) (06/09/84) High cholesterol (06/09/84) Hearing difficulty (06/09/19) Gallstone (06/09/96) Bone fracture (11/12/98) Back problem (06/09/74) GERD (gastroesophageal reflux disease) MDD (major depressive disorder) Intertrigo Abdominal panniculus Recent weight loss Family history of skin cancer Late effect of open wound with trauma Toxic effect of unspecified spider venom, accidental (unintentional), sequela Pyogenic granuloma of skin and subcutaneous tissue Injury caused by animal Localized swelling on right hand History of left heart catheterization (LHC) ( 08/13/07) Left knee pain Left leg pain Impingement syndrome of right shoulder Hiatal hernia SIRS (systemic inflammatory response syndrome) Depression Anemia Shoulder pain Skin cancer Hx of familial combined hyperlipidemia History of depression Surgical History History of surgical procedure H/O endoscopy History of colonoscopy (06/09/16) Hx of cataract surgery History of skin graft History of incision and drainage History of hand surgery History of cholecystectomy History of repair of ACL Family History Father Cancer Lung/Skin Mother CVA (cerebral vascular accident) Uncle Myocardial infarction Social History (Updated 04/14/24 @ 09:[address] 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 She has increased her social activities since her last appointment. Emma identified that this has lessened her feelings of depression. She has also put some boundaries in place at home. Both of these were reinforced. Emma discussed anxiety about communicating with others such as remembering others' names, joining conversations, and sharing information about herself. She shared life experiences that have contributed to anxiety in social situations. Worked on communication skills. Also worked on self- acceptance and use of coping thoughts if communication does not go as she hopes. Problem solved ways to increase assistance with caregiving and on radical acceptance. Examined ways to set boundaries with adult son and what was and was not Emma's responsibility. No SI. Future-oriented. Exam Mental Status Exam - Psych Appearance casually dressed and well kempt Attitude cooperative, calm and engaged Activity/Motor Behavior MSE activity/motor behavior finding no adventitious movements and appropriate eye contact Speech regular rate, regular volume and regular prosody Mood OK Affect restricted Thought Process linear, logical, coherent and goal directed Thought Content no delusions and no hallucinations Suicidal Ideation none Homicidal Ideation none Attention intact Concentration intact Sensorium/Orientation alert and oriented x3 Memory/Cognition intact Insight good Judgement good Assessment Plan Assessment Plan (1) MDD (major depressive disorder): Qualifiers: Major depression recurrence: recurrent Active/Remission status: currently active Major depression episode severity: unspecified Qualified Code(s): F33.9 - Major depressive disorder, recurrent, unspecified Plan: therapy using CBT, DBT, and ACT interventions to address thought patterns contributing to depressive symptoms and teach coping skills. Continued psychiatric services to monitor depressive symptoms and medication effectiveness. Pt. to call 911, call suicide prev (more content not included)... Normal [facility] MR/BMS.BPon 08-23-2024 MR/BMS.BP [facility] [address], [address] [place] [address] OFFICE VISIT Date of Service: 08/23/24 MR#: [id number] Acct: [id number] Name: EMMA HINES Rep #: [id number] : 1955 Provider: Dr. Migue Ayala se, DO Age/Sex: 68/F [facility] Status: Signed Intake Vital Signs 05/19/24 11:25 08/23/24 11:30 Height 5 ft 3 in 5 ft 3 in BP Intake Visit Reasons: 3mfu Allergies adhesive tape Allergy (Verified 07/13/24 13:26) Rash Penicillins Allergy (Verified 07/13/24 13:26) Hives Have you fallen in the past year?: No PFSH Medical History (Updated 08/19/24 @ 14:45 by DEJA Khan) Bacterial sinusitis Head trauma Osteopenia Vitamin deficiency (06/09/04) Migraines (06/09/99) IBS (irritable bowel syndrome) (06/09/84) High cholesterol (06/09/84) Hearing difficulty (06/09/19) Gallstone (06/09/96) Bone fracture (11/12/98) Back problem (06/09/74) GERD (gastroesophageal reflux disease) MDD (major depressive disorder) Intertrigo Abdominal panniculus Recent weight loss Family history of skin cancer Late effect of open wound with trauma Toxic effect of unspecified spider venom, accidental (unintentional), sequela Pyogenic granuloma of skin and subcutaneous tissue Injury caused by animal Localized swelling on right hand History of left heart catheterization (LHC) ( 08/13/07) Left knee pain Left leg pain Impingement syndrome of right shoulder Hiatal hernia SIRS (systemic inflammatory response syndrome) Depression Anemia Shoulder pain Skin cancer Hx of familial combined hyperlipidemia History of depression Surgical History History of surgical procedure H/O endoscopy History of colonoscopy (06/09/16) Hx of cataract surgery History of skin graft History of incision and drainage History of hand surgery History of cholecystectomy History of repair of ACL Family History Father Cancer Lung/Skin Mother CVA (cerebral vascular accident) Uncle Myocardial infarction Social History (Updated 04/14/24 @ 09:[address] 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 Patient reports that she has been doing ok. Did have a short bout of depressive symptoms several weeks ago. Had been feeling sick around this time. Continues to be on a diet called the metabolic reset program, and this has been going fairly well. Has lost nearly 30 lbs with this diet. 's health remains so-so. Finds that he has been forgetting more things in recent past. Sleep has been doing largely well. Partially improved with her sleeping better at night too. Denies SI/HI or AVH. Feels like medications are largely doing well. Denies any significant side effects. Has started going back to sikhism. Has been following with N[facility] intermittently which has been helpful. Did have garage finished for the most part which has been nice. Is considering getting a caregiver in to help with so she could get back to a bible study group. Has not been using lorazepam frequently. Review of Systems Constitutional Denies: fever(s), chills, change in weight or fatigue Eyes Denies: change in vision or blurry vision Ears, Nose, Mouth, Throat Denies: throat pain, neck pain or change in hearing Cardiovascular Denies: chest pain, palpitations or dyspnea Respiratory Denies: dyspnea, cough or wheezing Gastrointestinal Reports: abdominal pain and constipation; Denies: nausea, vomiting or diarrhea Genitourinary Denies: dysuria or urinary frequency Musculoskeletal Denies: back pain, neck pain, joint pain or muscle weakness Integumentary/Breast Denies: rash or new lesions Neurological Reports: headache(s); Denies: dizziness or confusion Endocrine Denies: fatigue or excessive sweating Hematologic/Lymphatic Denies: easy bruising or easy bleeding Allergic/Immunologic Denies: wheezing Exam Mental Status Exam - Psych Appearance casually dressed and well kempt Attitude cooperative, calm and engaged Activity/Motor Behavior MSE activity/motor behavior finding no adventitious movements and appropriate eye contact Speech r (more content not included)... Normal [facility] Gastroenterology Visit Repor ton 08-19-2024 Gastroenterology Visit Report [facility] [address] [place] [address] OFFICE VISIT Date of Service: 08/19/24 MR#: [id number] Acct: [id number] Name: EMMA HINES Rep #: [id number] : 1955 Provider: DEJA Khan Age/Sex: 68/F Location: [facility] Status: Signed Intake Vital Signs 01/20/24 11:02 07/20/24 16:25 Height 5 ft 3 in 5 ft 3 in Intake Visit Reasons: 6 M FU Chief Complaint: constipation Allergies adhesive tape Allergy (Verified 07/13/24 13:26) Rash Penicillins Allergy (Verified 07/13/24 13:26) Hives Medications ???Medication ???Instructions ???Recorded ???Confirmed ???Type atorvastatin 10 mg tablet (Lipitor) 10 mg PO QHS 12/28/13 05/19/24 History metoprolol succinate 25 mg 25 mg PO DAILY 12/28/13 05/19/24 H istory tablet,extended release 24 hr lorazepam 0.5 mg tablet 0.5 mg PO DAILY PRN Anxiety 05/19/24 History aspirin 81 mg chewable tablet 81 mg PO DAILY #1 TAB 03/22/2205/02 Rx cholecalciferol (vitamin D3) 25 25 mcg PO DAILY 07/14/23 05/19/24 History mcg (1,000 unit) capsule mecobalamin (vitamin B12) 1,000 1,000 mcg PO DAILY 07/14/23 History mcg lozenges escitalopram oxalate 20 mg tablet 20 mg PO DAILY #90 tabs 01/20/24 05/19/24 Rx (Lexapro) levothyroxine 50 mcg tablet 50 mcg PO DAILY #90 tabs 01/20/24 05/19/24 Rx liothyronine 5 mcg tablet 5 mcg PO BID #180 tabs 01/20/24 Rx nortriptyline 10 mg capsule 10 mg PO QHS #90 caps 01/20/2405/02 Rx nortriptyline 25 mg capsule 25 mg PO QHS #90 caps 01/20/2405/02 Rx famotidine 20 mg tablet (Pepcid) 20 mg PO QHS #90 tabs 03/30/24 Rx pantoprazole 40 mg tablet,delayed 40 mg PO DAILY #90 tabs 03/30/24 08/19/24 Rx release doxycycline monohydrate 100 mg 100 mg PO BID #14 caps 07/13/24 Rx capsule sennosides 8.6 mg-docusate sodium 1 tab-cap PO QHS 08/19/24 5 History 50 mg capsule (Stool Softener-Stimulant Laxative) Patient : No Have you fallen in the past year?: No Nurse's Note: OV 08.19.24 Pt here for f/u and reports she is feeling well. Pt reports bm daily. Takes stool softer, pantoprazole and famotidine. [facility] Medical History (Updated 08/19/24 @ 14:45 by DEJA Khan) Bacterial sinusitis Head trauma Osteopenia Vitamin deficiency (06/09/04) Migraines (06/09/99) IBS (irritable bowel syndrome) (06/09/84) High cholesterol (06/09/84) Hearing difficulty (06/09/19) Gallstone (06/09/96) Bone fracture (11/12/98) Back problem (06/09/74) GERD (gastroesophageal reflux disease) MDD (major depressive disorder) Intertrigo Abdominal panniculus Recent weight loss Family history of skin cancer Late effect of open wound with trauma Toxic effect of unspecified spider venom, accidental (unintentional), sequela Pyogenic granuloma of skin and subcutaneous tissue Injury caused by animal Localized swelling on right hand History of left heart catheterization (LHC) ( 08/13/07) Left knee pain Left leg pain Impingement syndrome of right shoulder Hiatal hernia SIRS (systemic inflammatory response syndrome) Depression Anemia Shoulder pain Skin cancer Hx of familial combined hyperlipidemia History of depression Surgical History History of surgical procedure H/O endoscopy History of colonoscopy (06/09/16) Hx of cataract surgery History of skin graft History of incision and drainage History of hand surgery History of cholecystectomy History of repair of ACL Family History Father Cancer Lung/Skin Mother CVA (cerebral vascular accident) Uncle Myocardial infarction Social History (Updated 04/14/24 @ 09:[address] 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 BGI established 9. with hx of IBS previously treated by GI in [place], [place]. Pt moving care closer to home. Constipation controlled with daily stool softener. Heartburn managed with PPI and famotidine daily. Last EGD w/ dilation in November 2021 with inflammation in the esophagus. Last colonoscopy in 2016 with diverticulosis and hemorrhoids. *Con (more content not included)... Normal [facility] MR/BMS.BPon 07-20-2024 MR/BMS.BP [facility] [address], [address] [place] [id number] OFFICE VISIT Date of Service: 07/20/24 MR#: [id number] Acct: [id number] Name: EMMA HINES Rep #: [id number] : 1955 Provider: [facility] Nurys reilly Age/Sex: 68/F Location: BMS.BP Status: Signed Intake Vital Signs 05/19/24 11:25 06/15/24 12:52 07/20/24 16:25 Height 5 ft 3 in 5 ft 3 in 5 ft 3 in BP Intake Visit Reasons: 5 w f/u Allergies adhesive tape Allergy (Verified 07/13/24 13:26) Rash Penicillins Allergy (Verified 07/13/24 13:26) Hives Have you fallen in the past year?: No PFSH Medical History (Updated 07/13/24 @ 13:30 by Newton Granado NP-C) Bacterial sinusitis Head trauma Osteopenia Vitamin deficiency (06/09/04) Migraines (06/09/99) IBS (irritable bowel syndrome) (06/09/84) High cholesterol (06/09/84) Hearing difficulty (06/09/19) Gallstone (06/09/96) Bone fracture (11/12/98) Back problem (06/09/74) GERD (gastroesophageal reflux disease) MDD (major depressive disorder) Intertrigo Abdominal panniculus Recent weight loss Family history of skin cancer Late effect of open wound with trauma Toxic effect of unspecified spider venom, accidental (unintentional), sequela Pyogenic granuloma of skin and subcutaneous tissue Injury caused by animal Localized swelling on right hand History of left heart catheterization (LHC) ( 08/13/07) Left knee pain Left leg pain Impingement syndrome of right shoulder Hiatal hernia SIRS (systemic inflammatory response syndrome) Depression Anemia Shoulder pain Skin cancer Hx of familial combined hyperlipidemia History of depression Surgical History History of surgical procedure H/O endoscopy History of colonoscopy (06/09/16) Hx of cataract surgery History of skin graft History of incision and drainage History of hand surgery History of cholecystectomy History of repair of ACL Family History Father Cancer Lung/Skin Mother CVA (cerebral vascular accident) Uncle Myocardial infarction Social History (Updated 04/14/24 @ 09:[address] 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 She reported struggling with an increase in depressive symptoms, which she is attributing to the Winter season. Emma stated that her is receiving palliative care and one meal a day delivered to the home. This has stabilized his weight loss, and these services have been helpful for her. Encouraged verbalization of emotions while providing support. Validated difficulties associated with care taking. Reinforced her participation in a care support representative support group. Worked on behavioral activation to lift mood working with Emma to create a list pleasant and social activities to intentionally implement to increase positive emotions. Emma demonstrated increased ability to identify behavioral activation tasks as the session progressed. Encouraged utilization of supports and self-care. Worked on boundary setting with son and granddaughter. No SI. Future-oriented. Exam Mental Status Exam - Psych Appearance casually dressed and well kempt Attitude cooperative, calm and engaged Activity/Motor Behavior MSE activity/motor behavior finding no adventitious movements and appropriate eye contact Speech regular rate, regular volume and regular prosody Mood depressed Affect restricted Thought Process linear, logical and coherent Thought Content no delusions and no hallucinations Suicidal Ideation none Homicidal Ideation none Attention intact Concentration intact Sensorium/Orientation alert and oriented x3 Memory/Cognition intact Insight good Judgement good Assessment Plan Assessment Plan (1) MDD (major depressive disorder): Qualifiers: Active/Remission status: currently active Major depression episode severity: unspecified Major depression recurrence: recurrent Qualified Code(s): F33.9 - Major depressive disorder, recurrent, unspecified Plan: therapy using CBT, DBT, and ACT interventions to address thought patterns contributing to depressive symptoms and teach coping skills. Continued psychiatric services to monitor depressive sympto (more content not included)... Normal [facility] Urgent Care Visit Reporton 0 07-13-2024 Urgent Care Visit Report [facility] [address] , [address] [place] [address] OFFICE VISIT Date of Service: 07/13/24 MR#: [id number] Acct: [id number] Name: EMMA HINES Rep #: [id number] : 1955 Provider: JULIANN Granado Age/Sex: 68/F Location: [facility] Status: Signed Intake Vital Signs 06/15/24 12:52 07/13/24 13:21 Height 5 ft 3 in BP 130/60 H Blood Pressure Location Lt brachial Position Sitting Respiration 16 Pulse 73 Pulse Source NIBP Temp 97.7 F L Temp Source Oral Pulse Oximetry (%) 98 Oxygen Delivery Method room air Intake Visit Reasons: SINUS INFECTION SYMPTS Chief Complaint: MEI, face pain, congestion Spent Grain Dryer Required: No Is patient in pain?: Yes Allergies adhesive tape Allergy (Verified 07/13/24 13:26) Rash Penicillins Allergy (Verified 07/13/24 13:26) Hives Is last menstrual period known: No Post menopausal: Yes Patient : No Have you fallen in the past year?: No Nurse's Note: MEI, face pain, congestion x 1 week. viral illness last week, reports hx of sinus infection following viral illnesses and feels same. declines testing. [facility] Medical History (Updated 07/13/24 @ 13:30 by JULIANN Welch) Bacterial sinusitis Head trauma Osteopenia Vitamin deficiency (06/09/04) Migraines (06/09/99) IBS (irritable bowel syndrome) (06/09/84) High cholesterol (06/09/84) Hearing difficulty (06/09/19) Gallstone (06/09/96) Bone fracture (11/12/98) Back problem (06/09/74) GERD (gastroesophageal reflux disease) MDD (major depressive disorder) Intertrigo Abdominal panniculus Recent weight loss Family history of skin cancer Late effect of open wound with trauma Toxic effect of unspecified spider venom, accidental (unintentional), sequela Pyogenic granuloma of skin and subcutaneous tissue Injury caused by animal Localized swelling on right hand History of left heart catheterization (LHC) ( 08/13/07) Left knee pain Left leg pain Impingement syndrome of right shoulder Hiatal hernia SIRS (systemic inflammatory response syndrome) Depression Anemia Shoulder pain Skin cancer Hx of familial combined hyperlipidemia History of depression Surgical History History of surgical procedure H/O endoscopy History of colonoscopy (06/09/16) Hx of cataract surgery History of skin graft History of incision and drainage History of hand surgery History of cholecystectomy History of repair of ACL Family History Father Cancer Lung/Skin Mother CVA (cerebral vascular accident) Uncle Myocardial infarction Social History (Updated 04/14/24 @ 09:[address] 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 She denies any fever but does note a mild cough. She states that symptoms feel consistent with her previous sinus infections. ROS: As noted in HPI Physical Exam: VITALS: Reviewed. GEN: Healthy appearing, well-developed, NAD. PSYCH: AOx3. Normal memory, mood, and affect. HEENT -Eyes: -No discharge or redness; -Ears: -Mouth and throat: Moist mucous membranes. NECK: CV: Regular rate and rhythm LUNGS: Normal respiratory effort. Lungs clear bilaterally. SKIN: Warm, well perfused. No skin rashes or abnormal lesions noted. MSK: Normal gait. NEURO: Ambulating with no limitations. Normal muscle strength and tone. No focal deficits. Coding Level of Care Code Off vis,est,level 3 Diagnoses Bacterial sinusitis J32.9; B96.89 Assessment and Plan Assessment and Plan (1) Bacterial sinusitis: Status: Acute Plan: We did discuss viral testing which patient declines. Symptoms do seem consistent with bacterial sinusitis and she was given a prescription for doxycycline. Recommended OTC treatments as needed otherwise and follow-up with PCP if symptoms do not improve. Medications: New doxycycline monohydrate 100 mg PO BID 14 caps 0RF Clinical Quality Measures Falls Risk Screening/Assistive Devices Have you fallen in the past year?: No (more content not included)... Normal [facility] MR/BMS.BPon 06-15-2024 MR/BMS.BP [facility] [address], [address] [place] [address] OFFICE VISIT Date of Service: 06/15/24 MR#: [id number] Acct: [id number] Name: EMMA HINES Rep #: [id number] : 1955 Provider: [facility] Age/Sex: 68/F Location: [facility] Status: Signed Intake Vital Signs 05/19/24 11:25 06/15/24 12:52 Height 5 ft 3 in 5 ft 3 in BP 115/71 Blood Pressure Location Rt brachial Position Sitting Respiration 18 Pulse 69 Pulse Source Monitor BP Intake Visit Reasons: Establish Care Allergies adhesive tape Allergy (Verified 05/19/24 11:31) Rash Penicillins Allergy (Verified 05/19/24 11:31) Hives Have you fallen in the past year?: No [facility] Medical History (Updated 04/14/24 @ 09:[address] Nadira Jackman MD) Head trauma Osteopenia Vitamin deficiency (06/09/04) Migraines (06/09/99) IBS (irritable bowel syndrome) (06/09/84) High cholesterol (06/09/84) Hearing difficulty (06/09/19) Gallstone (06/09/96) Bone fracture (11/12/98) Back problem (06/09/74) GERD (gastroesophageal reflux disease) MDD (major depressive disorder) Intertrigo Abdominal panniculus Recent weight loss Family history of skin cancer Late effect of open wound with trauma Toxic effect of unspecified spider venom, accidental (unintentional), sequela Pyogenic granuloma of skin and subcutaneous tissue Injury caused by animal Localized swelling on right hand History of left heart catheterization (LHC) ( 08/13/07) Left knee pain Left leg pain Impingement syndrome of right shoulder Hiatal hernia SIRS (systemic inflammatory response syndrome) Depression Anemia Shoulder pain Skin cancer Hx of familial combined hyperlipidemia History of depression Surgical History (Updated 04/14/24 @ 09:[address] Nadira Jackman MD) History of surgical procedure H/O endoscopy History of colonoscopy (06/09/16) Hx of cataract surgery History of skin graft History of incision and drainage History of hand surgery History of cholecystectomy History of repair of ACL Family History Father Cancer Lung/Skin Mother CVA (cerebral vascular accident) Uncle Myocardial infarction Social History (Updated 04/14/24 @ 09:[address] 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 is a 68 year-old female who participated in an assessment to begin BH therapy. She receives psychiatric services at [facility] from Dr. Guadalupe. She reports depressive symptoms my whole adult life. The severity of her symptoms have varied over time. There is a reduction in current depressive symptoms when compared to past symptoms. She currently is prescribed Nortriptyline, Liothyronine, Levothyroxine, and Lexapro. Previously, she received psychiatric services from [facility]. She previously participated in counseling every 4 to 6 weeks and found it helpful to discuss reoccurring scenarios, problem solving what to do when scenarios occurred again. Previous counseling also focused on interactions with her son. Pt. is seeking counseling to change thought patterns contributing to depressive symptoms and not let son's words impact her. Pt.'s has dementia. He has had 2 brain bleeds, is at risk for a stroke, and has weakness in his legs due to spinal cord problems. Pt. is his primary caregiver. She is seeking palliative care for him due to declining health. 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 As result, she moved a couple years ago, which was an adjustment. Pt. identifies stressors related to her son beginning in childhood. As a minor, he was diagnosed with ADHD and ODD. School was difficult. Son was on an IEP. There were times where he could not take medication, which affected his performance and behaviors. Son was in the , experienced combat, and was discharged by the . He was in a problematic marriage, and eventually moved in with pt. after his divorce where he continues to reside. He has had frequent job changes, has social problems, and has been homeless. Son has a 6 year-old daughter. Pt. does not like how her son parents his daughter, which is a source of conflict betw (more content not included)... Normal [facility] MR/BMS.BPon 05-19-2024 MR/BMS.BP [facility] [address] [place] [address], [address] [place] [id number] OFFICE VISIT Date of Service: 05/19/24 MR#: [id number] Acct: [id number] Name: EMMA HINES Rep #: [id number] : 1955 Provider: Dr. Migue Ayala se, DO Age/Sex: 68/F Location: [facility] Status: Signed Intake Vital Signs 01/20/24 11:02 04/14/24 09:02 05/19/24 11:25 Height 5 ft 3 in 5 ft 3 in 5 ft 3 in BP 115/71 Blood Pressure Location Rt brachial Position Sitting Respiration 18 Pulse 69 Pulse Source Monitor BP Intake Visit Reasons: 4mfu Accompanied by: Self Allergies adhesive tape Allergy (Verified 05/19/24 11:31) Rash Penicillins Allergy (Verified 05/19/24 11:31) Hives Medications ???Medication ???Instructions ???Recorded ???Confirmed ???Type atorvastatin 10 mg tablet (Lipitor) 10 mg PO QHS 12/28/13 05/19/24 History metoprolol succinate 25 mg 25 mg PO DAILY 12/28/13 05/19/24 History tablet,extended release 24 hr lorazepam 0.5 mg tablet 0.5 mg PO DAILY PRN Anxiety 09/01/20 05/19/24 History aspirin 81 mg chewable tablet 81 mg PO DAILY #1 TAB 03/22/22 05/19/24 Rx cholecalciferol (vitamin D3) 25 25 mcg PO DAILY 07/14/23 05/19/24 History mcg (1,000 unit) capsule mecobalamin (vitamin B12) 1,000 1,000 mcg PO DAILY 07/14/23 05/19/24 History mcg lozenges escitalopram oxalate 20 mg tablet 20 mg PO DAILY #90 tabs 01/20/24 05/19/24 Rx (Lexapro) levothyroxine 50 mcg tablet 50 mcg PO DAILY #90 tabs 01/20/24 05/19/24 Rx liothyronine 5 mcg tablet 5 mcg PO BID #180 tabs 01/20/24 05/19/24 Rx nortriptyline 10 mg capsule 10 mg PO QHS #90 caps 01/20/24 05/19/24 Rx nortriptyline 25 mg capsule 25 mg PO QHS #90 caps 01/20/24 05/19/24 Rx famotidine 20 mg tablet (Pepcid) 20 mg PO QHS #90 tabs 03/30/24 05/19/24 Rx pantoprazole 40 mg tablet,delayed 40 mg PO DAILY #90 tabs 03/30/24 05/19/24 Rx release Have you fallen in the past year?: No [facility] Medical History (Updated 04/14/24 @ 09:[address] Nadira Jackman MD) Head trauma Osteopenia Vitamin deficiency (06/09/04) Migraines (06/09/99) IBS (irritable bowel syndrome) (06/09/84) High cholesterol (06/09/84) Hearing difficulty (06/09/19) Gallstone (06/09/96) Bone fracture (11/12/98) Back problem (06/09/74) GERD (gastroesophageal reflux disease) MDD (major depressive disorder) Intertrigo Abdominal panniculus Recent weight loss Family history of skin cancer Late effect of open wound with trauma Toxic effect of unspecified spider venom, accidental (unintentional), sequela Pyogenic granuloma of skin and subcutaneous tissue Injury caused by animal Localized swelling on right hand History of left heart catheterization (LHC) ( 08/13/07) Left knee pain Left leg pain Impingement syndrome of right shoulder Hiatal hernia SIRS (systemic inflammatory response syndrome) Depression Anemia Shoulder pain Skin cancer Hx of familial combined hyperlipidemia History of depression Surgical History (Updated 04/14/24 @ 09:[address] Nadira Jackman MD) History of surgical procedure H/O endoscopy History of colonoscopy (06/09/16) Hx of cataract surgery History of skin graft History of incision and drainage History of hand surgery History of cholecystectomy History of repair of ACL Family History Father Cancer Lung/Skin Mother CVA (cerebral vascular accident) Uncle Myocardial infarction Social History (Updated 04/14/24 @ 09:[address] 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 Patient reports that she has been hanging in there. 's health continues to decline and now is largely now not safe to be left alone. Has Alzheimer's dementia. At this time doesn't have any home health care help so is essentially primary caregiver. Did recently get a medical alert necklace for her . He had a fall a few weeks ago, and did hit his head on the cement. Emma had to call the squad, and fortunately did not have any significant brain bleed. Is finally making progress on having her garage finished. He was smoking on front porch, but after having fallen, she had been going out with him which has been cumbersome. She (more content not included)... Normal [facility] Internal Medicine Office Vis jody 04-13-2024 Internal Medicine Office Visit [facility] [address] [place] [address] [place] [address] OFFICE VISIT Date of Service: 04/14/24 MR#: [id number] Acct: [id number] Name: EMMA HINES Rep #: [id number] : 1955 Provider: Dr. Nadira fonseca MD Age/Sex: 68/F Location: [facility] Status: Signed Intake Vital Signs 01/20/24 11:02 04/14/24 09:02 Height 5 ft 3 in 5 ft 3 in Weight: 221 lb BMI 39.1 BP 118/74 Blood Pressure Location Lt brachial Position Sitting Respiration 16 Pulse 75 Pulse Source Monitor Temp 97.2 F L Temp Source Temporal Pulse Oximetry (%) 97 Oxygen Delivery Method room air Intake Visit Reasons: TAR HEEL EST CARE PPW SENT Chief Complaint: establish Spent Grain Dryer Required: No Is patient in pain?: No Allergies adhesive tape Allergy (Verified 04/14/24 08:50) Rash Penicillins Allergy (Verified 04/14/24 08:50) Hives Medications ???Medication ???Instructions ???Recorded ???Confirmed ???Type atorvastatin 10 mg tablet (Lipitor) 10 mg PO QHS 12/28/13 04/14/24 History metoprolol succinate 25 mg 25 mg PO DAILY 12/28/13 04/14/24 History tablet,extended release 24 hr lorazepam 0.5 mg tablet 0.5 mg PO DAILY PRN Anxiety 09/01/20 04/14/24 History aspirin 81 mg chewable tablet 81 mg PO DAILY #1 TAB 03/22/22 04/14/24 Rx cholecalciferol (vitamin D3) 25 25 mcg PO DAILY 07/14/23 04/14/24 History mcg (1,000 unit) capsule mecobalamin (vitamin B12) 1,000 1,000 mcg PO DAILY 07/14/23 04/14/24 History mcg lozenges escitalopram oxalate 20 mg tablet 20 mg PO DAILY #90 tabs 01/20/24 04/14/24 Rx (Lexapro) levothyroxine 50 mcg tablet 50 mcg PO DAILY #90 tabs 01/20/24 04/14/24 Rx liothyronine 5 mcg tablet 5 mcg PO BID #180 tabs 01/20/24 04/14/24 Rx nortriptyline 10 mg capsule 10 mg PO QHS #90 caps 01/20/24 04/14/24 Rx nortriptyline 25 mg capsule 25 mg PO QHS #90 caps 01/20/24 04/14/24 Rx famotidine 20 mg tablet (Pepcid) 20 mg PO QHS #90 tabs 03/30/24 04/14/24 Rx pantoprazole 40 mg tablet,delayed 40 mg PO DAILY #90 tabs 03/30/24 04/14/24 Rx release Have you fallen in the past year?: No Nurse's Note: Declines flu vaccine. States she gets dehydrated frequently and occasionally needs Iv fluids. [facility] Medical History (Updated 04/14/24 @ 09:[address] Nadira Jackman MD) Head trauma Osteopenia Vitamin deficiency (06/09/04) Migraines (06/09/99) IBS (irritable bowel syndrome) (06/09/84) High cholesterol (06/09/84) Hearing difficulty (06/09/19) Gallstone (06/09/96) Bone fracture (11/12/98) Back problem (06/09/74) GERD (gastroesophageal reflux disease) MDD (major depressive disorder) Intertrigo Abdominal panniculus Recent weight loss Family history of skin cancer Late effect of open wound with trauma Toxic effect of unspecified spider venom, accidental (unintentional), sequela Pyogenic granuloma of skin and subcutaneous tissue Injury caused by animal Localized swelling on right hand History of left heart catheterization (LHC) ( 08/13/07) Left knee pain Left leg pain Impingement syndrome of right shoulder Hiatal hernia SIRS (systemic inflammatory response syndrome) Depression Anemia Shoulder pain Skin cancer Hx of familial combined hyperlipidemia History of depression Surgical History (Updated 04/14/24 @ 09:[address] Nadira Jackman MD) History of surgical procedure H/O endoscopy History of colonoscopy (06/09/16) Hx of cataract surgery History of skin graft History of incision and drainage History of hand surgery History of cholecystectomy History of repair of ACL Family History Father Cancer Lung/Skin Mother CVA (cerebral vascular accident) Uncle Myocardial infarction Social History (Updated 04/14/24 @ 09:[address] 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 She was seeing Dr. Chandler and last saw them in the spring. She is not due for any routine blood work or screening. She does want a flu shot. She doesn't want any other immunizations. She doesn't smoke and doesn't need any refills. She reports she is trying to healthy, but states it is hard for carding for her . She is staying active. The patient has a history of IBS and MIKE (more content not included)... Normal [facility] Urgent Care Visit Reporton 1 Urgent Care Visit Report [facility] [address], [address] [place] [address] OFFICE VISIT Date of Service: 03/13/24 MR#: [id number] Acct: [id number] Name: EMMA HINES Rep #: [id number] : 1955 Provider: JULIANN Will Age/Sex: 68/F Location: [facility] Status: Signed Intake Vital Signs 01/20/24 11:02 03/13/24 12:43 Height 5 ft 3 in BP 140/76 H Blood Pressure Location Lt brachial Position Sitting Respiration 17 Pulse 77 Pulse Source NIBP Temp 98.4 F Temp Source Oral Pulse Oximetry (%) 96 Oxygen Delivery Method room air Intake Visit Reasons: CONCERN FOR SINUS INFECTION Chief Complaint: cough, PND, yellow mucus Spent Grain Dryer Required: No Is patient in pain?: No Allergies adhesive tape Allergy (Verified 03/13/24 12:44) Rash Penicillins Allergy (Verified 03/13/24 12:44) Hives Medications ???Medication ???Instructions ???Recorded ???Confirmed ???Type atorvastatin 10 mg tablet (Lipitor) 10 mg PO QHS 12/28/13 01/20/24 History metoprolol succinate 25 mg 25 mg PO DAILY 12/28/13 01/20/24 History tablet,extended release 24 hr lorazepam 0.5 mg tablet 0.5 mg PO DAILY PRN Anxiety 09/01/20 01/20/24 History aspirin 81 mg chewable tablet 81 mg PO DAILY #1 TAB 03/22/22 01/20/24 Rx famotidine 20 mg tablet (Pepcid) 20 mg PO QHS 03/22/22 01/20/24 History pantoprazole 40 mg tablet,delayed 40 mg PO DAILY 03/22/22 01/20/24 History release cholecalciferol (vitamin D3) 25 25 mcg PO DAILY 07/14/23 01/20/24 History mcg (1,000 unit) capsule mecobalamin (vitamin B12) 1,000 1,000 mcg PO DAILY 07/14/23 01/20/24 History mcg lozenges escitalopram oxalate 20 mg tablet 20 mg PO DAILY #90 tabs 01/20/24 01/20/24 Rx (Lexapro) levothyroxine 50 mcg tablet 50 mcg PO DAILY #90 tabs 01/20/24 01/20/24 Rx liothyronine 5 mcg tablet 5 mcg PO BID #180 tabs 01/20/24 01/20/24 Rx nortriptyline 10 mg capsule 10 mg PO QHS #90 caps 01/20/24 01/20/24 Rx nortriptyline 25 mg capsule 25 mg PO QHS #90 caps 01/20/24 01/20/24 Rx doxycycline monohydrate 100 mg 100 mg PO BID 7 days #14 caps 03/13/24 03/13/24 Rx capsule Is last menstrual period known: No Post menopausal: Yes Patient : No Have you fallen in the past year?: No Nurse's Note: cough, PND, yellow mucus x 1 week. declines viral testing. states she has what her son had, he also was not tested. [facility] Medical History (Updated 03/13/24 @ 12:54 by JULIANN Cook) GERD (gastroesophageal reflux disease) Medication monitoring encounter MDD (major depressive disorder) Intertrigo Abdominal panniculus Recent weight loss Family history of skin cancer Personal history of skin cancer Late effect of open wound with trauma Toxic effect of unspecified spider venom, accidental (unintentional), sequela Pyogenic granuloma of skin and subcutaneous tissue Injury caused by animal Localized swelling on right hand History of left heart catheterization (LHC) ( 08/13/07) Low back pain Left knee pain Left leg pain Impingement syndrome of right shoulder Right shoulder pain Hiatal hernia Viral syndrome SIRS (systemic inflammatory response syndrome) Sinusitis, acute Depression Severe headache Anemia Shoulder pain Skin cancer Hx of familial combined hyperlipidemia History of depression Surgical History Hx of cataract surgery History of skin graft History of incision and drainage History of hand surgery History of cholecystectomy History of repair of ACL Family History Father Cancer Lung/Skin Mother CVA (cerebral vascular accident) Uncle Myocardial infarction Social History Smoking Status: Never smoker alcohol intake: current details: Rare substance use type: does not use caffeine: No HPI HPI Chief Complaint: cough, PND, yellow mucus Details: EMMA HINES, is a 68 F who presents to the office today for ? sinus infection -sx started over 1 wk 10-14 days ago - and son have been ill too -sx experiencing nasal drainage green, settling in voice box causing a cough- having hard time coughing it up but when she does it is green -denies fever or chills. Denies myalgias or sob -starting to develop headache no sinus pain ROS Const Constitutional: Positive for other (ROS negative x6 except what was placed in HPI) Exam Const General: cooperative, comfortable and no acute distress Orientation: alert, awake and oriented x3 HENMT Head: normal to inspection and normocephalic Ears: hearing grossly normal bilaterally, external ears normal and TM's normal bilaterally Nose: external nose normal and other (+ congestion and rhinorrhea. Moderate erythema and s (more content not included)... Normal [facility] Gastroenterology Visit Repor ton 02-26-2024 Gastroenterology Visit Report [facility] [address] [place] [address] OFFICE VISIT Date of Service: 02/26/24 MR#: [id number] Acct: [id number] Name: EMMA HINES Rep #: [id number] : 1955 Provider: DEJA Khan Age/Sex: 68/F Location: [facility] Status: Signed Intake Vital Signs 01/20/24 11:02 Height 5 ft 3 in Intake Visit Reasons: New Patient Chief Complaint: establishment Allergies adhesive tape Allergy (Verified 01/20/24 11:01) Rash Penicillins Allergy (Verified 01/20/24 11:01) Hives Have you fallen in the past year?: No PFSH Medical History (Updated 02/26/24 @ 14:43 by DEJA Khan) GERD (gastroesophageal reflux disease) Medication monitoring encounter MDD (major depressive disorder) Intertrigo Abdominal panniculus Recent weight loss Family history of skin cancer Personal history of skin cancer Late effect of open wound with trauma Toxic effect of unspecified spider venom, accidental (unintentional), sequela Pyogenic granuloma of skin and subcutaneous tissue Injury caused by animal Localized swelling on right hand History of left heart catheterization (LHC) ( 08/13/07) Low back pain Left knee pain Left leg pain Impingement syndrome of right shoulder Right shoulder pain Hiatal hernia Viral syndrome SIRS (systemic inflammatory response syndrome) Sinusitis, acute Depression Severe headache Anemia Shoulder pain Skin cancer Hx of familial combined hyperlipidemia History of depression Surgical History Hx of cataract surgery History of skin graft History of incision and drainage History of hand surgery History of cholecystectomy History of repair of ACL Family History Father Cancer Lung/Skin Mother CVA (cerebral vascular accident) Uncle Myocardial infarction Social History Smoking Status: Never smoker alcohol intake: current details: Rare substance use type: does not use caffeine: No HPI HPI Chief Complaint: establishment Details: EMMA HINES, is a 68 F who presents to the office today for establishment with [facility]. She has a PMHx pertinent for hypothyroidism, HTN, depression, GERD and diverticulosis. She was previously seeing a GI in [place] but wanted to esablish care somewhere closer to home. She has had GI symptoms for a long time and was previously diagnosed with IBS. She has constipation that is controlled with daily stool softeners. Her heartburn is managed with PPI and famotidine daily. She does continue to get breakthrough heartburn at night and feels this increases during times of stress. She is under a lot of stress right now as her has Alzheimers and is declining. Last EGD was in November showing inflammation in the esophagus. At that time she also had dilation as she was having dysphagia. Since this scope she has been doing well with no difficulty swallowing and less heartburn. Her last colonoscopy was in 2017 showing diverticulosis and hemorrhoids. Recommendation for colonoscopy in 10 years. Exam Const General: cooperative and comfortable Nutritional Appearance: average body habitus and well nourished HENMN Head: normal to inspection Ears: hearing grossly normal bilaterally Nose: external nose normal Face and sinus: normal facial exam Eyes General: appearance normal, both eyes and all related structures Neck Neck: normal visual inspection Chest Chest palpation inspection: normal inspection of the chest Resp Effort Inspection: normal respiratory effort and able to speak in complete sentences GI Inspection: normal to inspection Skin General: no rashes or lesions noted Neuro General: patient alert Extrem General: normal to inspection Psych Affect: normal affect Assessment and Plan Assessment and Plan (1) GERD (gastroesophageal reflux disease): Status: Chronic Qualifiers: Esophagitis presence: esophagitis presence not specified Qualified Code(s): K21.9 - Gastro- esophageal reflux disease without esophagitis Plan: Pt is a 68 yo female with PMHx pertinent for depression, HTN, HLD, hypothyroidism,, GERD and diverticulosis. She is here to establish GI care. She has no current GI symptoms besides some breakthrough heartburn at night.Her current regimen for heartburn is PPI in the morning before meals and famotidine at night. She believes stress makes her symptoms worse. I recommended future GES as her symptoms are refractory PPI therapy. We will consider this in the future when she has less going on in her life. Last EGD was in November 2023 with esophagitis and dilation performed. Her constipation is controlled with stool softeners. Last colonoscopy was in 2017 with diverticulosis and no polyp (more content not included)... Normal [facility] MR/BMSKarla 01-20-2024 MR/BMS. [facility] [address] [place] [address], [address] [place] [address] OFFICE VISIT Date of Service: 01/20/24 MR#: [id number] Acct: [id number] Name: EMMA HINES Rep #: [id number] : 1955 Provider: Dr. Migue Ayala se, DO Age/Sex: 68/F Location: [facility] Status: Signed Intake Vital Signs 09/24/23 11:15 11/07/23 10:25 01/20/24 11:00 01/20/24 11:02 Height 5 ft 3 in 5 ft 3 in 5 ft 3 in 5 ft 3 in BP 138/80 H Blood Pressure Location Rt brachial Position Sitting Pulse 76 Pulse Source Monitor BP Intake Visit Reasons: 4 M FU Spent Grain Dryer Required: No Accompanied by: Self Is patient in pain?: No Allergies adhesive tape Allergy (Verified 01/20/24 11:01) Rash Penicillins Allergy (Verified 01/20/24 11:01) Hives Medications ???Medication ???Instructions ???Recorded ???Confirmed ???Type atorvastatin 10 mg tablet (Lipitor) 10 mg PO QHS 12/28/13 01/20/24 History metoprolol succinate 25 mg 25 mg PO DAILY 12/28/13 01/20/24 History tablet,extended release 24 hr lorazepam 0.5 mg tablet 0.5 mg PO DAILY PRN Anxiety 09/01/20 01/20/24 History aspirin 81 mg chewable tablet 81 mg PO DAILY #1 TAB 03/22/22 01/20/24 Rx famotidine 20 mg tablet (Pepcid) 20 mg PO QHS 03/22/22 01/20/24 History pantoprazole 40 mg tablet,delayed 40 mg PO DAILY 03/22/22 01/20/24 History release cholecalciferol (vitamin D3) 25 25 mcg PO DAILY 07/14/23 01/20/24 History mcg (1,000 unit) capsule mecobalamin (vitamin B12) 1,000 1,000 mcg PO DAILY 07/14/23 01/20/24 History mcg lozenges escitalopram oxalate 20 mg tablet 20 mg PO DAILY #90 tabs 01/20/24 01/20/24 Rx (Lexapro) levothyroxine 50 mcg tablet 50 mcg PO DAILY #90 tabs 01/20/24 01/20/24 Rx liothyronine 5 mcg tablet 5 mcg PO BID #180 tabs 01/20/24 01/20/24 Rx nortriptyline 10 mg capsule 10 mg PO QHS #90 caps 01/20/24 01/20/24 Rx nortriptyline 25 mg capsule 25 mg PO QHS #90 [facility] 01/20/24 01/20/24 Rx Have you fallen in the past year?: No Current gender identity: female Nurse's Note: Presents to the office today for follow up. [facility] Medical History Medication monitoring encounter MDD (major depressive disorder) Intertrigo Abdominal panniculus Recent weight loss Family history of skin cancer Personal history of skin cancer Late effect of open wound with trauma Toxic effect of unspecified spider venom, accidental (unintentional), sequela Pyogenic granuloma of skin and subcutaneous tissue Injury caused by animal Localized swelling on right hand History of left heart catheterization (LHC) ( 08/13/07) Low back pain Left knee pain Left leg pain Impingement syndrome of right shoulder Right shoulder pain Hiatal hernia Viral syndrome SIRS (systemic inflammatory response syndrome) Sinusitis, acute Depression Severe headache Anemia Shoulder pain Skin cancer Hx of familial combined hyperlipidemia History of depression Surgical History Hx of cataract surgery History of skin graft History of incision and drainage History of hand surgery History of cholecystectomy History of repair of ACL Family History Father Cancer Lung/Skin Mother CVA (cerebral vascular accident) Uncle Myocardial infarction Social History Smoking Status: Never smoker alcohol intake: current details: Rare substance use type: does not use caffeine: No HPI History of Present Illness History provided by: patient HPI: Emma Hines is a 68 year old female who presents today for follow up evaluation. Patient reports that she has been hanging in there. Reports that she has been handling the things that she needs to handle largely by herself as isn't able to really contribute to decision making. Does admit to some depressive symptoms but much better than she had been doing in past. 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 Is hesitant to go to sikhism as she generally doesn't feel like she is the best in social situations. Feels like she is sensitive to rejection. Has considered doing some volunteering as a way to socialize. Sleep has been good. Does have to make sure that she gets it, as if she is really busy she might need a nap to catch up. Generally wakes up feeling well rested. Does have some intermittent GI symptoms, and does have some good days and bad days. Was supposed to have a garage built in November but they still have not yet started. Continues to take medication without significant difficulty. Denies any new side effects. Review of Systems Constitutional Denies: fever(s), chill (more content not included)... Normal [facility] Stress Reporton 11-18-2023 Stress Report [facility] [address] [place] [address] MR#: [id number] Acct: [id number] Name: EMMA HINES Rep #: [id number] : 1955 68 From: Baldo Posadas MD Primary Care: Dr. Sosa Chandler, DO Status: R EG CLI Referring Dr: Charity Merchant Sex: F C Stress Test Report Exercise myocardial perfusion stress test. 68-year-old lady with a history of chest pain Stress protocol: Resting EKG demonstrates normal sinus rhythm with occasional PVC and a rate of 76 bpm resting blood pressure is 134/70 mmHg. The patient exercised according to the regular Terry protocol for a total duration of 4 minutes attaining a maximum heart rate of 125 bpm which was 82 of maximum predicted heart rate; the maximum workload was 7 metabolic equivalents. At rest there were no ST or T wave changes noted to suggest ischemia and at peak exercise upsloping ST changes only were noted which did not meet the criteria for ischemia. No clinical angina was noted the test was terminated due to the target heart rate being achieved/fatigue. The peak blood pressure was 168/70 mmHg. Rate- pressure product was 16,400. Myocardial perfusion protocol. 14 points mCi of technetium 99m sestamibi was injected at rest. The patient exercised according to regular Terry protocol for total duration of 4-minute and at peak exercise 44.3 mCi of technetium 99m sestamibi was injected stress images were obtained stress and rest images were reconstructed in comparing the short axis vertical long and horizontal long axis. Gated images were also obtained. Perfusion SPECT analysis: Review of the stress images demonstrate normal uptake of tracer noted in all areas of the myocardium. The resting images similarly demonstrate normal uptake of tracer noted in all areas of the myocardium. No areas of reversibility are noted to suggest ischemia no previous infarct was noted. Gated SPECT analysis: The gated ejection fraction is 80%. Conclusion: Normal exercise myocardial perfusion stress test at a moderate workload Preserved ejection fraction. 11/18/231758 Date Baldo Posadas MD CC: Dr. Sosa Chandler DO; DEJA Shay Date Dictated: 11/18/231756 Date Transcribed: 11/18/231756 Cottage Supervisor: [place] Signed Normal [facility] CT ABD/PEL W IVCONon 07- 024 CT ABD/PEL W IVCON * * *Final Report* * * DATE OF EXAM: Aug 14 2023 2:23PM [facility] 0530 - CT ABD/PEL W IVCON / PROCEDURE REASON: abd/pel * * * * Physician Interpretation * * * * EXAMINATION: CT ABDOMEN AND PELVIS WITH IV CONTRAST CLINICAL HISTORY: Left lower quadrant pain TECHNIQUE: CT of the abdomen and pelvis was performed using standard technique, scanning from just above the dome of the diaphragm to the symphysis pubis. MQ: CTAP_3 Contrast: IV: 100 ml of Omnipaque 350 CT Radiation dose: Integrated Dose-length product (DLP) for this visit = 752 mGy*cm. CT Dose Reduction Employed: Automated exposure control(AEC) and iterative recon COMPARISON: None. RESULT: Liver: No mass. Biliary: No bile duct dilation. Gallbladder is absent. Spleen: No mass. No splenomegaly. Pancreas: No mass or duct dilation. Adrenals: No mass. Kidneys: No mass, calculus or hydronephrosis. GI tract: No dilation or wall thickening. Normal appendix. Colonic diverticulosis. Lymph nodes: No abdominal or pelvic lymphadenopathy. Mesentery/Peritoneum: No ascites or mass. Retroperitoneum: No mass. Vasculature: Mild atherosclerotic calcification. Pelvis: No mass, ascites or fluid collection. Bones/Soft Tissues: Degenerative changes of the thoracolumbar spine. Small fat-containing umbilical hernia. Lower thorax: Mild subsegmental atelectasis. [facility] Nurse Practitioner (topogram) images: No additional findings. IMPRESSION: Colonic diverticulosis without evidence of acute diverticulitis. No acute abnormality identified in the abdomen or pelvis. Cottage Supervisor: DAVID Transcribe Date/Time: Aug 15 2023 4:25P Dictated by : GRACIE HART MD This examination was interpreted and the report reviewed and electronically signed by: GRACIE HART MD on Aug 15 2023 4:39PM EST [id number] [facility] Absolute lymphocyte countOrd ered By: Dr. Chandler on 09-20-2022 Lymphocytes Auto (Unsp spec) [#/Vol] 1.52 10*3/uL 0.83-4.[address] [facility] Basophil percentageOrdered B y: Dr. Chandler on 09-20-2022 Basophils/100 WBC (Bld) 1.0 % 0-[address] [facility] Bilirubin [Mass/Vol] 0.30 mg/dL 0.20-1.00 [facility] Comment on above: For patients on eltr ombopag therapy, use of Dimension [place] TBIL is not recommended. Chloride [Moles/Vol] 108 mmol/L 98-107 [facility] Cholesterol [Mass/Vol] 163 mg/dL <200 [facility] Comment on above: <200 mg/dL Desirable 200-240 mg/dL Borderline >240 mg/dL High Risk Eosinophils/100 WBC (Bld) 3.1 % 0-[address] [facility] Glucose [Mass/Vol] 154 mg/dL 74-106 [facility] Comment on above: Fasting Glucose resu lt greater than or equal to 126 mg/dL suggests DIABETES MELLITUS per A.D.A. criteria. Neutrophils (Bld) [#/Vol] 3.5 10*3/uL 2.0-7.[address] [facility] Neutrophils/100 WBC (Bld) 60.9 % 47-[address] [facility] Potassium [Moles/Vol] 4.0 mmol/L 3.5-5.1 [facility] Protein [Mass/Vol] 6.7 g/dL 6.4-8.2 [facility] Sodium [Moles/Vol] 138 mmol/L 136-145 [facility] Triglyceride [Mass/Vol] 189 mg/dL <[address] [facility] Comment on above: The drugs N-Acetylcy steine and Metamizole may falsely depress this assay.Serum Triglycerides Reference Interval Normal <150 mg/dL Borderline high 150 - 199 mg/dL High 200 - 499 mg/dL Very High > or = 500 mg/dL WBC (Bld) [#/Vol] 5.7 10*3/uL 4.4-11.0 [facility] Blood erythrocytes count (nu mber/volume)Ordered By: Dr. Chandler on 09-20-2022 RBC (Bld) [#/Vol] 4.60 10*6/uL 4.2-5.4 [facility] Blood hemoglobin measurement (mass/volume)Ordered By: Dr. Chandler on 09-20-2022 Hemoglobin (Bld) [Mass/Vol] 12.5 g/dL 12.0-15.[address] [facility] Blood lymphocytes/100 leukoc ytesOrdered By: Dr. Chandler on 09-20-2022 Lymphocytes/100 WBC (Bld) 26.5 % 19-[address] [facility] Blood monocytes/100 leukocyt esOrdered By: Dr. Chandler on 09-20-2022 Monocytes/100 WBC (Bld) 8.0 % 0-[address] [facility] Blood platelet mean volumeOr dered By: Dr. Chandler on 09-20-2022 Platelet mean volume (Bld) [Entitic vol] 10.2 fL 6.2-12.[address] [facility] Determination of erythrocyte mean corpuscular volume (MCV)Ordered By: Dr. Chandler on 09-20-2022 MCV (RBC) [Entitic vol] 88.5 fL 81-[address] [facility] Hematocrit Auto (Bld) [Volum e fraction]Ordered By: Dr. Chandler on 09-20-2022 Hematocrit (Bld) [Volume fraction] 40.7 % 37-[address] [facility] Iron measurement (mass/mass) Ordered By: Dr. Chandler on 09-20-2022 Iron (Unsp spec) [Mass/Mass] 36 ug/dL 50-[address] [facility] Laboratory - Chemistry and C hemistry - challengeOrdered By: Dr. Chandler on 09-20-2022 ALP [Catalytic activity/Vol] 107 U/L 45-[address] [facility] ALT [Catalytic activity/Vol] 36 U/L 13-[address] [facility] CO2 [Moles/Vol] 27.0 mmol/L 21.0-32.[address] [facility] Cobalamin (Vitamin B12) [Mass/Vol] 1277 pg/mL 211-[address] [facility] Free T4 [Mass/Vol] 0.81 ng/dL 0.76-1.46 [facility] Globulin (S) [Mass/Vol] 3.3 g/dL 2.2-4.[address] [facility] Urea nitrogen/Creatinine [Mass ratio] 21.4 mg/mg 10-[address] [facility] Laboratory - Hematology and Cell countsOrdered By: Dr. Chandler on 09-20-2022 Erythrocyte distribution width (RBC) [Entitic vol] 45.3 fL 35.1-43.[address] [facility] Erythrocyte distribution width (RBC) [Ratio] 14.2 % 11.6-14.[address] [facility] Immature granulocytes/100 WBC (Bld) 0.500 % 0.0-0.[address] [facility] Comment on above: IG% - Immature Granu locytes (promyelocytes, myelocytes and metamyelocytes) > 1% indicates that a LEFT SHIFT is Present. MCH (RBC) [Entitic mass] 27.2 pg 27.0-32.[address] [facility] Nucleated RBC/100 WBC (Bld) [Ratio] 0 % 0-[address] [facility] MCHC Auto (RBC) [Mass/Vol]Or dered By: Dr. Chandler on 09-20-2022 MCHC (RBC) [Mass/Vol] 30.7 g/dL 32-36 [facility] No Panel InformationOrdered By: Dr. Chadnler on 09-20-2022 Estimated GFR (MDRD) Amer 82 mL/min >[address] [facility] Comment on above: GFR Calc Estimated GFR (MDRD) Non-Af Amer 67 mL/min >[address] [facility] Comment on above: Non- GFR Calc Free Triiodothyronine (T3) pg/dL 2.9 pg/mL 2.18-3.[address] [facility] Nortriptyline (Aventyl) Level 71 ng/mL 50-[address] [facility] Comment on above: Detection Limit = 20 This test was developed and its performance characteristics determined by [facility]. It has not been cleared or approved by the Food and Drug Administration.Performed at: [address] [id number] Director: Soco Wright MD, Phone: [phone] Thyroid Stimulating Hormone (TSH) 1.49 uIU/mL 0.358-3.[address] [facility] Vitamin D 25-Hydroxy 59.1 ng/mL [facility] Comment on above: Vitamin D 25(OH) Sta tus Range Deficiency <20 ng/mL (50nmol/L) Insufficiency 20 - 30 ng/mL (50 - 75 nmol/L) Sufficiency 30 - 100 ng/mL (75 - 250 nmol/L) Toxicity >100 ng/mL (>250 nmol/L) Platelets bldOrdered By: Dr. Chandler on 09-20-2022 Platelets (Bld) [#/Vol] 295 10*3/uL 150-[address] [facility] Serum or plasma albumin aurora urement (mass/volume)Ordered By: Dr. Chandler on 09-20-2022 Albumin [Mass/Vol] 3.4 g/dL 3.2-5.0 [facility] Serum or plasma albumin/glob ulin mass ratioOrdered By: Dr. Chandler on 09-20-2022 Albumin/Globulin [Mass ratio] 1.0 {ratio} 0.9-2.[address] [facility] Serum or plasma calcium aruora urement (mass/volume)Ordered By: Dr. Chandler on 09-20-2022 Calcium [Mass/Vol] 9.0 mg/dL 8.5-10.1 [facility] Serum or plasma cholesterol in HDL measurement (mass/volume)Ordered By: Dr. Chandler on 09-20-2022 Cholesterol in HDL [Mass/Vol] 50 mg/dL >[address] [facility] Comment on above: The drugs N-Acetylcy steine and Metamizole may falsely depress this assay. Reference Range HDL <40 mg/dL Low HDL Cholesterol HDL >or= 60 mg/dL High HDL Cholesterol Serum or plasma cholesterol in VLDL measurement (mass/volume)Ordered By: Dr. Chandler on 09-20-2022 Cholesterol in VLDL [Mass/Vol] 38 mg/dL 5-[address] [facility] Serum or plasma creatinine m easurement (mass/volume)Ordered By: Dr. Chandler on 09-20-2022 Creatinine [Mass/Vol] 0.89 mg/dL 0.55-1.02 [facility] Comment on above: The validity of the calculated GFR & GFRAA in patients over 70 years has not been determined. Clinical correlation is essential. Serum or plasma ferritin manju surement (mass/volume)Ordered By: Dr. Chandler on 09-20-2022 Ferritin [Mass/Vol] 39 ng/mL 8-252 [facility] Serum or plasma low density lipoprotein (LDL) cholesterol measurement (mass/volume)Ordered By: Dr. Chandler on 09-20-2022 Cholesterol in LDL [Mass/Vol] 75 mg/dL 0-[address] [facility] Serum or plasma urea nitroge n measurement (mass/volume)Ordered By: Dr. Chandler on 09-20-2022 Urea nitrogen [Mass/Vol] 19 mg/dL 7-[address] [facility] Thin prep Papanicolaou smear with manual screeningOrdered By: Dr. Chandler on 09-20-2022 Thin prep Papanicolaou smear with manual screening 24 U/L 15-[address] [facility] Thin prep Papanicolaou smear with manual screening 3 5-[address] [facility] Whole blood hemoglobin A1c/t otal hemoglobin ratio (mass fraction)Ordered By: Dr. Chandler on 09-20-2022 HbA1c (Bld) [Mass fraction] 5.8 % 3.8-5.[address] [facility] Comment on above: Normal < 5.7 % Predi abetic 5.7 - 6.4 % Diabetic >or= 6.5 % Please note range changes. Shena 09-05-2022 CNPN Telephone (OBGYWM) EMMA HINES ([id number]) 1955 F CHT Date Time Provider Department 3/30/23 JOAN PORTER OBGYWM During your visit today, we recorded the following information about you: Joan Argueta MD 09/05/2022 8:08 AM Addendum [place] count low but patient symptomatic for UTI- Augmentin best for this strain of strep- says she is allergic to PCN is she really allergic or has she had Augmentin before and done ok? If she can't have PCN then I will give a cephalosporin with flagyl. Please let me know so I can order. Ruthie Rasheed RN 09/05/2022 8:59 AM Signed Patient notified. She said she had a mild rash with PCN years ago. She can't remember if she ever had Augmentin or amoxicillin though. Pharmacy correct. Ruthie Argueta MD 09/05/2022 12:29 PM Signed Ok- will try Augmentin however if she has any rash, swelling needs to stop medication immediately. Pt needs to have benadryl on hand. Ruthie Rasheed RN 09/05/2022 1:36 PM Signed Left message for patient to call office. Ruthie Fenton RN 09/05/2022 2:34 PM Signed Patient notified and voiced understanding of below information and instructions. Beatriz Fenton RN Allergies As of Date: 09/05/2022 Noted Allergy Reaction ADHESIVE TAPE (ROSINS) 02/18/2012 2 - Rash PENICILLINS 02/18/2012 2 - Rash Date Reviewed: 09/03/2022 Reviewed by: Janna Aguero MA - Fully Assessed Reason for Visit: UTI [116] Order(s):amoxicillin- clavulanic acid (AUGMENTIN) 875-125 mg per tabletTake 1 tablet by mouth twice daily for 5 days. FOR 5 DAYS.Disp: 10 tabletRfl: 0 Prescriptions as of 09/05/2022 - amoxicillin-clavulani c acid (AUGMENTIN) 875-125 mg per tablet Take 1 tablet by mouth twice daily for 5 days. FOR 5 DAYS. - BABY ASPIRIN ORAL Take by mouth. - acetaminophen (TYLENOL) 500 mg tablet Take 2 tablets by mouth every 6 hours as needed. MAX: 3000mg per 24 hours - ondansetron orally disintegrating (ZOFRAN ODT) 4 mg disintegrating tablet Take 4 mg by mouth every 8 hours as needed for Nausea/Vomiting. - atorvastatin (LIPITOR) 10 mg tablet Take 10 mg by mouth once daily. - cyanocobalamin, vitamin B-12, 5,000 mcg cap Take 1 capsule by mouth every morning. - levothyroxine (SYNTHROID) 50 mcg tablet Take 50 mcg by mouth once daily. - pantoprazole DR (PROTONIX) 40 mg tablet Take 40 mg by mouth once daily. - liothyronine (CYTOMEL) 5 mcg tablet Take 5 mcg by mouth twice daily. - nortriptyline 25 mg capsule Take 1 capsule by mouth daily at bedtime. - nortriptyline 10 mg capsule Take 1 capsule by mouth daily at bedtime. - Cholecalciferol, Vitamin D3, 5,000 unit cap Take 5,000 Units by mouth every evening. - famotidine 20 mg tablet Take 40 mg by mouth daily at bedtime. - metoprolol succinate XL, long acting, 25 mg 24 hr tablet Take 1 tablet by mouth once daily. Problem List As Of Date 09/05/2022 Noted Resolved Trapezium fracture [S62.173A] 02/25/2012 Hand crush injury [S67.20XA] 02/25/2012 ICH (intracerebral hemorrhage) ([facility]) [I61.9] 09/04/2020 Fall from horse [V80.010A] 09/06/2020 SAH (subarachnoid hemorrhage) ([facility]) [I60.9] 09/06/2020 SDH (subdural hematoma) ([facility]) [S06.5XAA] 09/06/2020 Contusion of buttock [S30.0XXA] 09/06/2020 Obesity, Class II, BMI 35-39.9 [E66.9] 09/06/2020 Prescriptions ordered this encounter Disp Refills Start End AMOXICILLIN 875 MG-POTASSIUM CLAVULA* 10 t* 0 09/05/2022 09/10/2022 Cmt: Aware of possible rash with PCN many years ago- office spoke to patient. Will stop if she experiences rash, swelling. Will have benadryl on hand. Route: ORAL Sig: Take 1 tablet by mouth twice daily for 5 days. FOR 5 DAYS. Encounter Status:Closed by BEATRIZ FENTON RN on 09/05/22 [facility] Bacteria Ur Culton 3 Bacteria identified Cx Nom (U) ORGANISM ID: 1 10,000 -<50,000 CFU/ml Streptococcus anginosus No susceptibility testing done. [facility] Comment on above: Performed By: #### 6 30-4 #### [facility] CLIA [id number] [address] [place] [address] OF [facility] CNOVon 09-03-2022 CNOV Office Visit (OBGYWM ) EMMA HINES Leanne ([id number]) 1955 F T Date Time Provider Department 09/03/22 11:20 AM JOAN PORTER OBGYWM During your visit today, we recorded the following information about you: Blood pressure Weight 120/76 95.2 kg Joan Argueta MD 09/03/2022 12:23 PM Signed Layer Up offered: Patient declines. Emma Hines is a 66 year old female who presents for concerns regarding left axillary pain as well as pressure sensation in the bladder or uterus. Patient denies any dysuria changes with her urinary habits or bowel habits. She denies a bulge or anything hanging from the vagina. She is not experiencing any pain with intercourse, bleeding, abnormal discharge. She states at times she does have an odor but nothing that is significant. Denies any changes with her breasts including no skin changes, no nipple discharge no masses. She did have a cardiac work-up. She states that she does experience some heartburn and wonders if that is what it is. She is under a lot of stress at home as her was diagnosed with dementia. Patient offers no other concerns at this time. OB History T0 L1 SAB0 IAB0 Ectopic0 Multiple0 Live Births0 Perinatal Specialist History LMP: Postmenopausal Age at Menarche: Age at First : Age at Menopause: Perinatal Specialist History Comments: Sexual Activity: Not Currently; Male Contraception: No contraception data on record PAST MEDICAL HISTORY Diagnosis Date ACL (anterior cruciate ligament) tear Brain bleed (HCC) 08/2020 horse accident Depression Hearing loss Hyperlipidemia Hypertension Skin cancer on her back PAST SURGICAL HISTORY Procedure Laterality Date CHOLECYSTECTOMY 1992 DILATION AND CURETTAGE DXAND/THER NONOBSTETRIC Dilation AND curettage KNEE ARTHROSCOPY 2000 Left PAST SURGICAL HISTORY OF 12/2011 Incision and Drainage of right hand infection SKIN GRAFT HAND <20 SQ CM 01/2012 FAMILY HISTORY Problem Relation Age of Onset Hypertension Mother Heart Mother Irregular heart beat Cancer Father lung Hypertension Father Social History Tobacco Use Smoking status: Never Smokeless tobacco: Never Vaping Use Vaping Use: Never used Substance Use Topics Alcohol use: Yes Comment: Very Rarely Drug use: Never Current Outpatient Medications Medication Sig BABY ASPIRIN ORAL Take by mouth. acetaminophen (TYLENOL) 500 mg tablet Take 2 tablets by mouth every 6 hours as needed. MAX: 3000mg per 24 hours ondansetron orally disintegrating (ZOFRAN ODT) 4 mg disintegrating tablet Take 4 mg by mouth every 8 hours as needed for Nausea/Vomiting. atorvastatin (LIPITOR) 10 mg tablet Take 10 mg by mouth once daily. cyanocobalamin, vitamin B-12, 5,000 mcg cap Take 1 capsule by mouth every morning. levothyroxine (SYNTHROID) 50 mcg tablet Take 50 mcg by mouth once daily. pantoprazole DR (PROTONIX) 40 mg tablet Take 40 mg by mouth once daily. liothyronine (CYTOMEL) 5 mcg tablet Take 5 mcg by mouth twice daily. nortriptyline 25 mg capsule Take 1 capsule by mouth daily at bedtime. nortriptyline 10 mg capsule Take 1 capsule by mouth daily at bedtime. Cholecalciferol, Vitamin D3, 5,000 unit cap Take 5,000 Units by mouth every evening. famotidine 20 mg tablet Take 40 mg by mouth daily at bedtime. metoprolol succinate XL, long acting, 25 mg 24 hr tablet Take 1 tablet by mouth once daily. No current facility-administered medications for this visit. Allergies As of Date: 09/03/2022 Allergen Noted Reaction ADHESIVE TAPE (ROSINS) 02/18/2012 Rash PENICILLINS 02/18/2012 Rash Fully Assessed 09/03/2022 REVIEW OF SYSTEMS Abdomen: no pain Bladder: pressure but no dysuria . Breast: see HPI . Expanded ROS: GENERAL: Negative for significant weight loss, fever Allergies and current medication updated:Yes EXAM: BP 120/76 Wt 209 lb 14.4 oz (95.2kg) GENERAL: pleasant, female in no apparent distress HEENT: Normocephalic and atraumatic NECK: Supple, full range of motion, no adenopathy, and thyroid normal DERMATOLOGY: Normal, without lesions, non-icteric, and non-hirsute BREAST: soft, symmetric, no dominant mass, normal nipple-areolar complex, no lymphadenopathy, no nipple discharge, and mild tenderness bilaterally. ABDOMEN: soft, non-tender, and no masses PELVIC: external genitalia normal, normal Bartholin's glands, urethra, [place]'s glands, no vulvar lesions, no cervical lesions, good vaginal support, physiologic discharge present, normal appearing perineal body and perianal region BIMANUAL: uterus normal size, shape and consistency, no adnexal masses, and mild tenderness NEURO: alert and oriented x3,exam grossly non-focal EXTREMITIES: normal ASSESSMENT AND PLAN: Encounter Diagnosis ICD-10-CM 1. Pelvic pressure in female R10.2 US FEMALE PELVIS TRANSVAG 2. Sensation of pressure in bl (more content not included)... Normal [facility] FEMALE PELVIS TRANSVAGon 09-03-2022 US FEMALE PELVIS TRANSVAG * * *Final Report* * * DATE OF EXAM: Sep 03 2022 2:51PM [id number] - US FEMALE PELVIS TRANSVAG / PROCEDURE REASON: multiple diagnoses * * * * Physician Interpretation * * * * EXAMINATION: TRANSVAGINAL AND LIMITED TRANSABDOMINAL PELVIC ULTRASOUND CLINICAL HISTORY: Pelvic pressure TECHNIQUE: Sonography of the pelvis was performed by transvaginal and transabdominal (limited) techniques. Images were obtained and stored in a permanent archive. MQ: UFP_1 COMPARISON: None RESULT: Uterus size: 6.6 x 2.9 x 4.3 cm -Orientation: Retroverted -Myometrium: Normal sonographic appearance. Right echogenic 7 x 6 x 4 mm focus. Likely degenerated fibroid -Endometrial echo complex: 0.4 cm -Cervix: Incidental nabothian cyst Right and left ovary are not seen with transabdominal or endovaginal probe Pelvis free fluid: None. No pathologic adnexal mass IMPRESSION: Subcentimeter probable degenerated fibroid within the myometrium. Nonvisualization of the ovaries. No evidence of free fluid or pathologic adnexal mass Cottage Supervisor: [facility] HOSP[facility] Transcribe Date/Time: Sep 05 2022 1:16P Dictated by : GARRET GRANDE MD This examination was interpreted and the report reviewed and electronically signed by: GARRET GRANDE MD on Sep 05 2022 1:22PM EST [id number] [facility] Absolute lymphocyte countOrd ered By: Dr. Underwood on 08-15-2022 Lymphocytes Auto (Unsp spec) [#/Vol] 1.33 10*3/uL 0.83-4.[address] [facility] Basophil percentageOrdered B y: Dr. Underwood on 08-15-2022 Basophils/100 WBC (Bld) 0.4 % 0-[address] [facility] Bilirubin [Mass/Vol] 0.40 mg/dL 0.20-1.00 [facility] Comment on above: For patients on eltr ombopag therapy, use of Dimension [place] TBIL is not recommended. Chloride [Moles/Vol] 108 mmol/L 98-107 [facility] Eosinophils/100 WBC (Bld) 1.8 % 0-[address] [facility] Glucose [Mass/Vol] 108 mg/dL 74-106 [facility] Comment on above: Fasting Glucose resu lt from 100 to 125 mg/dL suggests IMPAIRED HOMEOSTASIS per A.D.A. criteria. Neutrophils (Bld) [#/Vol] 4.8 10*3/uL 2.0-7.[address] [facility] Neutrophils/100 WBC (Bld) 66.6 % 47-[address] [facility] Potassium [Moles/Vol] 3.6 mmol/L 3.5-5.1 [facility] Protein [Mass/Vol] 7.1 g/dL 6.4-8.2 [facility] Sodium [Moles/Vol] 137 mmol/L 136-145 [facility] WBC (Bld) [#/Vol] 7.1 10*3/uL 4.4-11.0 [facility] Blood erythrocytes count (nu mber/volume)Ordered By: Dr. Underwood on 08-15-2022 RBC (Bld) [#/Vol] 5.12 10*6/uL 4.2-5.4 [facility] Blood hemoglobin measurement (mass/volume)Ordered By: Dr. Underwood on 08-15-2022 Hemoglobin (Bld) [Mass/Vol] 13.7 g/dL 12.0-15.[address] [facility] Blood lymphocytes/100 leukoc ytesOrdered By: Dr. Underwood on 08-15-2022 Lymphocytes/100 WBC (Bld) 18.7 % 19-[address] [facility] Blood monocytes/100 leukocyt esOrdered By: Dr. Underwood on 08-15-2022 Monocytes/100 WBC (Bld) 12.1 % 0-[address] [facility] Blood platelet mean volumeOr dered By: Dr. Underwood on 08-15-2022 Platelet mean volume (Bld) [Entitic vol] 8.9 fL 6.2-12.[address] [facility] Determination of erythrocyte mean corpuscular volume (MCV)Ordered By: Dr. Underwood on 08-15-2022 MCV (RBC) [Entitic vol] 83.8 fL 81-[address] [facility] Hematocrit Auto (Bld) [Volum e fraction]Ordered By: Dr. Underwood on 08-15-2022 Hematocrit (Bld) [Volume fraction] 42.9 % 37-[address] [facility] Laboratory - Chemistry and C hemistry - challengeOrdered By: Dr. Underwood on 08-15-2022 ALP [Catalytic activity/Vol] 114 U/L 45-[address] [facility] ALT [Catalytic activity/Vol] 100 U/L 13-[address] [facility] CO2 [Moles/Vol] 21.0 mmol/L 21.0-32.[address] [facility] Globulin (S) [Mass/Vol] 3.8 g/dL 2.2-4.[address] [facility] Urea nitrogen/Creatinine [Mass ratio] 23.1 mg/mg 10-[address] [facility] Laboratory - Hematology and Cell countsOrdered By: Dr. Underwood on 08-15-2022 Erythrocyte distribution width (RBC) [Entitic vol] 42.8 fL 35.1-43.[address] [facility] Erythrocyte distribution width (RBC) [Ratio] 14.0 % 11.6-14.[address] [facility] Immature granulocytes/100 WBC (Bld) 0.400 % 0.0-0.[address] [facility] Comment on above: IG% - Immature Granu locytes (promyelocytes, myelocytes and metamyelocytes) > 1% indicates that a LEFT SHIFT is Present. MCH (RBC) [Entitic mass] 26.8 pg 27.0-32.[address] [facility] Nucleated RBC/100 WBC (Bld) [Ratio] 0 % 0-[address] [facility] MCHC Auto (RBC) [Mass/Vol]Or dered By: Dr. Underwood on 08-15-2022 MCHC (RBC) [Mass/Vol] 31.9 g/dL 32-36 [facility] No Panel InformationOrdered By: Dr. Underwood on 08-15-2022 Estimated Creatinine Clearance Calc 39.61 ml/min [facility] Estimated GFR (MDRD) Amer 68 mL/min >[address] [facility] Comment on above: GFR Calc Estimated GFR (MDRD) Non-Af Amer 56 mL/min >[address] [facility] Comment on above: Non- GFR Calc Platelets bldOrdered By: Dr. Underwood on 08-15-2022 Platelets (Bld) [#/Vol] 259 10*3/uL 150-[address] [facility] Serum or plasma albumin aurora urement (mass/volume)Ordered By: Dr. Underwood on 08-15-2022 Albumin [Mass/Vol] 3.3 g/dL 3.2-5.0 [facility] Serum or plasma albumin/glob ulin mass ratioOrdered By: Dr. Underwood on 08-15-2022 Albumin/Globulin [Mass ratio] 0.9 {ratio} 0.9-2.[address] [facility] Serum or plasma calcium aurora urement (mass/volume)Ordered By: Dr. Underwood on 08-15-2022 Calcium [Mass/Vol] 9.3 mg/dL 8.5-10.1 [facility] Serum or plasma creatinine m easurement (mass/volume)Ordered By: Dr. Underwood on 08-15-2022 Creatinine [Mass/Vol] 1.04 mg/dL 0.55-1.02 [facility] Comment on above: The validity of the calculated GFR & GFRAA in patients over 70 years has not been determined. Clinical correlation is essential. Serum or plasma urea nitroge n measurement (mass/volume)Ordered By: Dr. Underwood on 08-15-2022 Urea nitrogen [Mass/Vol] 24 mg/dL 7-[address] [facility] Thin prep Papanicolaou smear with manual screeningOrdered By: Dr. Underwood on 08-15-2022 Thin prep Papanicolaou smear with manual screening 38 U/L 15-[address] [facility] Thin prep Papanicolaou smear with manual screening 8 5-[address] [facility] Absolute lymphocyte countOrd ered By: Dr. Mario on 08-12-2022 Lymphocytes Auto (Unsp spec) [#/Vol] 0.49 10*3/uL 0.83-4.[address] [facility] Basophil percentageOrdered B y: Dr. Mario on 08-12-2022 Basophils/100 WBC (Bld) 0.3 % 0-[address] [facility] Bilirubin [Mass/Vol] 0.80 mg/dL 0.20-1.00 [facility] Comment on above: For patients on eltr ombopag therapy, use of Dimension [place] TBIL is not recommended. Chloride [Moles/Vol] 104 mmol/L 98-107 [facility] Eosinophils/100 WBC (Bld) 0.3 % 0-[address] [facility] Glucose [Mass/Vol] 166 mg/dL 74-106 [facility] Comment on above: Fasting Glucose resu lt greater than or equal to 126 mg/dL suggests DIABETES MELLITUS per A.D.A. criteria. Neutrophils (Bld) [#/Vol] 7.9 10*3/uL 2.0-7.[address] [facility] Neutrophils/100 WBC (Bld) 86.3 % 47-[address] [facility] Potassium [Moles/Vol] 3.4 mmol/L 3.5-5.1 [facility] Protein [Mass/Vol] 7.9 g/dL 6.4-8.2 [facility] Sodium [Moles/Vol] 136 mmol/L 136-145 [facility] WBC (Bld) [#/Vol] 9.1 10*3/uL 4.4-11.0 [facility] Blood erythrocytes count (nu mber/volume)Ordered By: Dr. Mario on 08-12-2022 RBC (Bld) [#/Vol] 5.33 10*6/uL 4.2-5.4 [facility] Blood hemoglobin measurement (mass/volume)Ordered By: Dr. Mario on 08-12-2022 Hemoglobin (Bld) [Mass/Vol] 14.3 g/dL 12.0-15.[address] [facility] Blood lymphocytes/100 leukoc ytesOrdered By: Dr. Mario on 08-12-2022 Lymphocytes/100 WBC (Bld) 5.4 % 19-[address] [facility] Blood monocytes/100 leukocyt esOrdered By: Dr. Mario on 08-12-2022 Monocytes/100 WBC (Bld) 7.0 % 0-[address] [facility] Blood platelet mean volumeOr dered By: Dr. Mario on 08-12-2022 Platelet mean volume (Bld) [Entitic vol] 10.0 fL 6.2-12.[address] [facility] Determination of erythrocyte mean corpuscular volume (MCV)Ordered By: Dr. Mario on 08-12-2022 MCV (RBC) [Entitic vol] 83.9 fL 81-[address] [facility] Hematocrit Auto (Bld) [Volum e fraction]Ordered By: Dr. Mario on 08-12-2022 Hematocrit (Bld) [Volume fraction] 44.7 % 37-[address] [facility] Laboratory - Chemistry and C hemistry - challengeOrdered By: Dr. Mario on 08-12-2022 ALP [Catalytic activity/Vol] 92 U/L 45-[address] [facility] ALT [Catalytic activity/Vol] 55 U/L 13-[address] [facility] CO2 [Moles/Vol] 20.0 mmol/L 21.0-32.[address] [facility] Globulin (S) [Mass/Vol] 4.1 g/dL 2.2-4.[address] [facility] Lipase [Catalytic activity/Vol] 161 U/L 73-[address] [facility] Urea nitrogen/Creatinine [Mass ratio] 23.7 mg/mg 10-[address] [facility] Laboratory - Hematology and Cell countsOrdered By: Dr. Mario on 08-12-2022 Erythrocyte distribution width (RBC) [Entitic vol] 43.2 fL 35.1-43.[address] [facility] Erythrocyte distribution width (RBC) [Ratio] 14.1 % 11.6-14.[address] [facility] Immature granulocytes/100 WBC (Bld) 0.700 % 0.0-0.[address] [facility] Comment on above: IG% - Immature Granu locytes (promyelocytes, myelocytes and metamyelocytes) > 1% indicates that a LEFT SHIFT is Present. MCH (RBC) [Entitic mass] 26.8 pg 27.0-32.[address] [facility] Nucleated RBC/100 WBC (Bld) [Ratio] 0 % 0-[address] [facility] MCHC Auto (RBC) [Mass/Vol]Or dered By: Dr. Mario on 08-12-2022 MCHC (RBC) [Mass/Vol] 32.0 g/dL 32-36 [facility] No Panel InformationOrdered By: Dr. Mario on 08-12-2022 Estimated Creatinine Clearance Calc 36.14 ml/min [facility] Estimated GFR (MDRD) Amer 61 mL/min >[address] [facility] Comment on above: GFR Calc Estimated GFR (MDRD) Non-Af Amer 50 mL/min >[address] [facility] Comment on above: Non- GFR Calc Platelets bldOrdered By: Dr. Mario on 08-12-2022 Platelets (Bld) [#/Vol] 322 10*3/uL 150-[address] [facility] Serum or plasma albumin aurora urement (mass/volume)Ordered By: Dr. Mario on 08-12-2022 Albumin [Mass/Vol] 3.8 g/dL 3.2-5.0 [facility] Serum or plasma albumin/glob ulin mass ratioOrdered By: Dr. Mario on 08-12-2022 Albumin/Globulin [Mass ratio] 0.9 {ratio} 0.9-2.[address] [facility] Serum or plasma calcium aurora urement (mass/volume)Ordered By: Dr. Mario on 08-12-2022 Calcium [Mass/Vol] 9.8 mg/dL 8.5-10.1 [facility] Serum or plasma creatinine m easurement (mass/volume)Ordered By: Dr. Mario on 08-12-2022 Creatinine [Mass/Vol] 1.14 mg/dL 0.55-1.02 [facility] Comment on above: The validity of the calculated GFR & GFRAA in patients over 70 years has not been determined. Clinical correlation is essential. Serum or plasma urea nitroge n measurement (mass/volume)Ordered By: Dr. Mario on 08-12-2022 Urea nitrogen [Mass/Vol] 27 mg/dL 7-[address] [facility] Thin prep Papanicolaou smear with manual screeningOrdered By: Dr. Mario on 08-12-2022 Thin prep Papanicolaou smear with manual screening 39 U/L 15-[address] [facility] Thin prep Papanicolaou smear with manual screening 12 5-[address] [facility] Absolute lymphocyte counton 03-01-2022 Lymphocytes Auto (Unsp spec) [#/Vol] 1.65 10*3/uL 0.83-4.[address] [facility] Work Phone: Basophil percentageon 2021 Basophils/100 WBC (Bld) 0.6 % 0-[address] [facility] Work Phone: [phone] Chloride [Moles/Vol] 106 mmol/L 98-107 [facility] Work Phone: [phone] Eosinophils/100 WBC (Bld) 1.3 % 0-[address] [facility] Work Phone: [phone] Glucose [Mass/Vol] 114 mg/dL 74-106 [facility] Work Phone: [phone] Comment on above: Fasting Glucose resu lt from 100 to 125 mg/dL suggests IMPAIRED HOMEOSTASIS per A.D.A. criteria. Neutrophils (Bld) [#/Vol] 6.3 10*3/uL 2.0-7.[address] [facility] Work Phone: [phone] Neutrophils/100 WBC (Bld) 69.6 % 47-[address] [facility] Work Phone: [phone] Potassium [Moles/Vol] 4.3 mmol/L 3.5-5.1 [facility] Work Phone: [phone] Sodium [Moles/Vol] 142 mmol/L 136-145 [facility] Work Phone: WBC (Bld) [#/Vol] 9.0 10*3/uL 4.4-11.0 [facility] Work Phone: Blood erythrocytes count (nu mber/volume)on 03-01-2022 RBC (Bld) [#/Vol] 4.45 10*6/uL 4.2-5.4 [facility]: Blood hemoglobin measurement (mass/volume)on 03-01-2022 Hemoglobin (Bld) [Mass/Vol] 12.5 g/dL 12.0-15.[address] [facility] Work Phone: Blood lymphocytes/100 leukoc yteson 03-01-2022 Lymphocytes/100 WBC (Bld) 18.4 % 19-[address] [facility] Work Phone: Blood monocytes/100 leukocyt eson 03-01-2022 Monocytes/100 WBC (Bld) 9.7 % 0-[address] [facility] Work Phone: Blood platelet mean volumeon 03-01-2022 Platelet mean volume (Bld) [Entitic vol] 9.3 fL 6.2-12.[address] [facility] Work Phone: Determination of erythrocyte mean corpuscular volume (MCV)on 03-01-2022 MCV (RBC) [Entitic vol] 86.1 fL 81-[address] [facility] Work Phone: Hematocrit Auto (Bld) [Volum e fraction]on 03-01-2022 Hematocrit (Bld) [Volume fraction] 38.3 % 37-[address] [facility] Work Phone: Laboratory - Chemistry and C hemistry - challengeon 03-01-2022 CO2 [Moles/Vol] 29.0 mmol/L 21.0-32.[address] [facility] Work Phone: Urea nitrogen/Creatinine [Mass ratio] 19.7 mg/mg 10-[address] [facility] Work Phone: Laboratory - Hematology and Cell countson 03-01-2022 Erythrocyte distribution width (RBC) [Entitic vol] 43.0 fL 35.1-43.[address] [facility] Work Phone: Erythrocyte distribution width (RBC) [Ratio] 13.8 % 11.6-14.[address] [facility] Work Phone: Immature granulocytes/100 WBC (Bld) 0.400 % 0.0-0.[address] [facility] Work Phone: Comment on above: IG% - Immature Granu locytes (promyelocytes, myelocytes and metamyelocytes) > 1% indicates that a LEFT SHIFT is Present. MCH (RBC) [Entitic mass] 28.1 pg 27.0-32.[address] [facility] Work Phone: Nucleated RBC/100 WBC (Bld) [Ratio] 0 % 0-[address] [facility] Work Phone: MCHC Auto (RBC) [Mass/Vol]on 03-01-2022 MCHC (RBC) [Mass/Vol] 32.6 g/dL 32-36 [facility] Work Phone: No Panel Informationon 03-01 Troponin I High Sensitivity 5 pg/mL 3.0-54.[address] [facility] Work Phone: Comment on above: Please Note: New Alanna t Units and Gender Specific Reference Ranges. For more information see Policy Stat Procedure [place] High Sensitivity Troponin (TNIH) and attachments. Estimated Creatinine Clearance Calc 36.90 ml/min [facility] Work Phone: Estimated GFR (MDRD) Amer 59 mL/min >[address] [facility] Work Phone: Comment on above: GFR Calc Estimated GFR (MDRD) Non-Af Amer 49 mL/min >[address] [facility] Work Phone: Comment on above: Non- GFR Calc Platelets bldon 03-01-2022 Platelets (Bld) [#/Vol] 293 10*3/uL 150-450 [facility] Work Phone: Serum or plasma calcium aurora urement (mass/volume)on 03-01-2022 Calcium [Mass/Vol] 9.7 mg/dL 8.5-10.1 [facility] Work Phone: Serum or plasma creatinine m easurement (mass/volume)on 03-01-2022 Creatinine [Mass/Vol] 1.17 mg/dL 0.55-1.02 [facility] Work Phone: Comment on above: The validity of the calculated GFR & GFRAA in patients over 70 years has not been determined. Clinical correlation is essential. Serum or plasma urea nitroge n measurement (mass/volume)on 03-01-2022 Urea nitrogen [Mass/Vol] 23 mg/dL 7-[address] [facility] Work Phone: Thin prep Papanicolaou smear with manual screeningon 03-01-2022 Thin prep Papanicolaou smear with manual screening 7 5-[address] [facility] Work Phone: Basophil percentageon 2021 Bilirubin [Mass/Vol] 0.70 mg/dL 0.20-1.00 [facility] Work Phone: Comment on above: For patients on eltr ombopag therapy, use of Dimension [place] TBIL is not recommended. Chloride [Moles/Vol] 105 mmol/L 98-107 [facility] Work Phone: Glucose [Mass/Vol] 94 mg/dL 74-106 [facility] Work Phone: Potassium [Moles/Vol] 4.3 mmol/L 3.5-5.1 [facility] Work Phone: Protein [Mass/Vol] 6.9 g/dL 6.4-8.2 [facility] Work Phone: Sodium [Moles/Vol] 139 mmol/L 136-145 [facility] Work Phone: WBC (Bld) [#/Vol] 6.3 10*3/uL 4.4-11.0 [facility] Work Phone: Blood erythrocytes count (nu mber/volume)on 01-23-2022 RBC (Bld) [#/Vol] 4.65 10*6/uL 4.2-5.4 [facility] Work Phone: Blood hemoglobin measurement (mass/volume)on 01-23-2022 Hemoglobin (Bld) [Mass/Vol] 12.5 g/dL 12.0-15.[address] [facility] Work Phone: Blood platelet mean volumeon 01-23-2022 Platelet mean volume (Bld) [Entitic vol] 9.9 fL 6.2-12.[address] [facility] Work Phone: Determination of erythrocyte mean corpuscular volume (MCV)on 01-23-2022 MCV (RBC) [Entitic vol] 85.8 fL 81-[address] [facility] Work Phone: Hematocrit Auto (Bld) [Volum e fraction]on 01-23-2022 Hematocrit (Bld) [Volume fraction] 39.9 % 37-[address] [facility] Work Phone: Laboratory - Chemistry and C hemistry - challengeon 01-23-2022 ALP [Catalytic activity/Vol] 78 U/L 45-[address] [facility] Work Phone: ALT [Catalytic activity/Vol] 25 U/L 13-[address] [facility] Work Phone: CK [Catalytic activity/Vol] 77 U/L 26-[address] [facility] Work Phone: CO2 [Moles/Vol] 28.0 mmol/L 21.0-32.[address] [facility] Work Phone: Free T4 [Mass/Vol] 0.90 ng/dL 0.76-1.46 [facility] Work Phone: Globulin (S) [Mass/Vol] 3.5 g/dL 2.2-4.[address] [facility] Work Phone: Magnesium [Mass/Vol] 2.3 mg/dL 1.6-2.6 [facility] Work Phone: Urea nitrogen/Creatinine [Mass ratio] 17.0 mg/mg 10-[address] [facility] Work Phone: Laboratory - Hematology and Cell countson 01-23-2022 Erythrocyte distribution width (RBC) [Entitic vol] 42.6 fL 35.1-43.[address] [facility] Work Phone: Erythrocyte distribution width (RBC) [Ratio] 13.5 % 11.6-14.[address] [facility] Work Phone: MCH (RBC) [Entitic mass] 26.9 pg 27.0-32.[address] [facility] Work Phone: MCHC Auto (RBC) [Mass/Vol]on 01-23-2022 MCHC (RBC) [Mass/Vol] 31.3 g/dL 32-36 [facility] Work Phone: No Panel Informationon 01-23 Estimated GFR (MDRD) Amer 71 mL/min >[address] [facility] Work Phone: Comment on above: GFR Calc Estimated GFR (MDRD) Non-Af Amer 59 mL/min >[address] [facility] Work Phone: Comment on above: Non- GFR Calc Free Triiodothyronine (T3) pg/dL 3.0 pg/mL 2.18-3.[address] [facility] Work Phone: Thyroid Stimulating Hormone (TSH) 1.23 uIU/mL 0.358-3.[address] [facility] Work Phone: Troponin I High Sensitivity 4 pg/mL 3.0-54.[address] [facility] Work Phone: Comment on above: Please Note: New Alanna t Units and Gender Specific Reference Ranges. For more information see Policy Stat Procedure [place] High Sensitivity Troponin (TNIH) and attachments. Platelets bldon 01-23-2022 Platelets (Bld) [#/Vol] 288 10*3/uL 150-[address] [facility] Work Phone: Serum or plasma albumin aurora urement (mass/volume)on 01-23-2022 Albumin [Mass/Vol] 3.4 g/dL 3.2-5.0 [facility] Work Phone: Serum or plasma albumin/glob ulin mass ratioon 01-23-2022 Albumin/Globulin [Mass ratio] 1.0 {ratio} 0.9-2.[address] [facility] Work Phone: Serum or plasma calcium aurora urement (mass/volume)on 01-23-2022 Calcium [Mass/Vol] 9.1 mg/dL 8.5-10.1 [facility] Work Phone: Serum or plasma creatinine m easurement (mass/volume)on 01-23-2022 Creatinine [Mass/Vol] 1.00 mg/dL 0.55-1.02 [facility] Work Phone: Comment on above: The validity of the calculated GFR & GFRAA in patients over 70 years has not been determined. Clinical correlation is essential. Serum or plasma urea nitroge n measurement (mass/volume)on 01-23-2022 Urea nitrogen [Mass/Vol] 17 mg/dL 7-[address] [facility] Work Phone: Thin prep Papanicolaou smear with manual screeningon 01-23-2022 Thin prep Papanicolaou smear with manual screening 18 U/L 15-[address] [facility] Work Phone: Thin prep Papanicolaou smear with manual screening 6 5-[address] [facility] Work Phone: Absolute lymphocyte counton 10-07-2021 Lymphocytes Auto (Unsp spec) [#/Vol] 0.62 10*3/uL 0.83-4.[address] [facility] Work Phone: Basophil percentageon 2021 Basophils/100 WBC (Bld) 0.1 % 0-[address] [facility] Work Phone: Bilirubin [Mass/Vol] 0.80 mg/dL 0.20-1.00 [facility] Work Phone: Comment on above: For patients on eltr ombopag therapy, use of Dimension [place] TBIL is not recommended. Chloride [Moles/Vol] 105 mmol/L 98-107 [facility] Work Phone: Eosinophils/100 WBC (Bld) 0.2 % 0-[address] [facility] Work Phone: Glucose [Mass/Vol] 140 mg/dL 74-106 [facility] Work Phone: Comment on above: Fasting Glucose resu lt greater than or equal to 126 mg/dL suggests DIABETES MELLITUS per A.D.A. criteria. Neutrophils (Bld) [#/Vol] 7.0 10*3/uL 2.0-7.[address] [facility] Work Phone: Neutrophils/100 WBC (Bld) 86.2 % 47-[address] [facility] Work Phone: Potassium [Moles/Vol] 2.9 mmol/L 3.5-5.1 [facility] Work Phone: Protein [Mass/Vol] 7.4 g/dL 6.4-8.2 [facility] Work Phone: Sodium [Moles/Vol] 138 mmol/L 136-145 [facility] Work Phone: WBC (Bld) [#/Vol] 8.2 10*3/uL 4.4-11.0 [facility] Work Phone: Blood erythrocytes count (nu mber/volume)on 10-07-2021 RBC (Bld) [#/Vol] 5.04 10*6/uL 4.2-5.4 [facility] Work Phone: Blood hemoglobin measurement (mass/volume)on 10-07-2021 Hemoglobin (Bld) [Mass/Vol] 13.7 g/dL 12.0-15.[address] [facility] Work Phone: Blood lymphocytes/100 leukoc yteson 10-07-2021 Lymphocytes/100 WBC (Bld) 7.6 % 19-[address] [facility] Work Phone: Blood monocytes/100 leukocyt eson 10-07-2021 Monocytes/100 WBC (Bld) 5.4 % 0-[address] [facility] Work Phone: Blood platelet mean volumeon 10-07-2021 Platelet mean volume (Bld) [Entitic vol] 9.4 fL 6.2-12.[address] [facility] Work Phone: Determination of erythrocyte mean corpuscular volume (MCV)on 10-07-2021 MCV (RBC) [Entitic vol] 84.5 fL 81-[address] [facility] Work Phone: Direct bilirubinon 2 Bilirubin.direct [Mass/Vol] 0.21 mg/dL 0.00-0.[address] [facility] Work Phone: Hematocrit Auto (Bld) [Volum e fraction]on 10-07-2021 Hematocrit (Bld) [Volume fraction] 42.6 % 37-[address] [facility] Work Phone: Laboratory - Chemistry and C hemistry - challengeon 10-07-2021 ALP [Catalytic activity/Vol] 85 U/L 45-[address] [facility] Work Phone: ALT [Catalytic activity/Vol] 26 U/L 13-[address] [facility] Work Phone: CO2 [Moles/Vol] 24.0 mmol/L 21.0-32.[address] [facility] Work Phone: Globulin (S) [Mass/Vol] 3.7 g/dL 2.2-4.[address] [facility] Work Phone: Lipase [Catalytic activity/Vol] 78 U/L 73-[address] [facility] Work Phone: Urea nitrogen/Creatinine [Mass ratio] 17.9 mg/mg 10-[address] [facility] Work Phone: Laboratory - Hematology and Cell countson 10-07-2021 Erythrocyte distribution width (RBC) [Entitic vol] 41.9 fL 35.1-43.[address] [facility] Work Phone: Erythrocyte distribution width (RBC) [Ratio] 13.7 % 11.6-14.[address] [facility] Work Phone: Immature granulocytes/100 WBC (Bld) 0.500 % 0.0-0.[address] [facility] Work Phone: Comment on above: IG% - Immature Granu locytes (promyelocytes, myelocytes and metamyelocytes) > 1% indicates that a LEFT SHIFT is Present. MCH (RBC) [Entitic mass] 27.2 pg 27.0-32.[address] [facility] Work Phone: Nucleated RBC/100 WBC (Bld) [Ratio] 0 % 0-[address] [facility] Work Phone: MCHC Auto (RBC) [Mass/Vol]on 10-07-2021 MCHC (RBC) [Mass/Vol] 32.2 g/dL 32-36 [facility] Work Phone: No Panel Informationon 10-07 Estimated Creatinine Clearance Calc 32.66 ml/min [facility] Work Phone: Estimated GFR (MDRD) Amer 51 mL/min >[address] [facility] Work Phone: Comment on above: GFR Calc Estimated GFR (MDRD) Non-Af Amer 42 mL/min >[address] [facility] Work Phone: Comment on above: Non- GFR Calc Platelets bldon 10-07-2021 Platelets (Bld) [#/Vol] 307 10*3/uL 150-[address] [facility] Work Phone: Serum or plasma albumin aurora urement (mass/volume)on 10-07-2021 Albumin [Mass/Vol] 3.7 g/dL 3.2-5.0 [facility] Work Phone: Serum or plasma calcium aurora urement (mass/volume)on 10-07-2021 Calcium [Mass/Vol] 9.2 mg/dL 8.5-10.1 [facility] Work Phone: Serum or plasma creatinine m easurement (mass/volume)on 10-07-2021 Creatinine [Mass/Vol] 1.34 mg/dL 0.55-1.02 [facility] Work Phone: Comment on above: The validity of the calculated GFR & GFRAA in patients over 70 years has not been determined. Clinical correlation is essential. Serum or plasma urea nitroge n measurement (mass/volume)on 10-07-2021 Urea nitrogen [Mass/Vol] 24 mg/dL 7-[address] [facility] Work Phone: Thin prep Papanicolaou smear with manual screeningon 10-07-2021 Thin prep Papanicolaou smear with manual screening 21 U/L 15-[address] [facility] Work Phone: Thin prep Papanicolaou smear with manual screening 9 5-[address] [facility] Work Phone: [facility] DONNY,EMMA Perdomo ([id number]) 1955 F T Date Time Provider Department 08/21/21 LUZ ELENA IRVING During your visit today, we recorded the following information about you: Luz Elena Irving APRN.S[employer]IOR [employer]URING [employer] ENGINEER 08/21/2021 2:44 PM Signed Patient last seen in the office on 09/19/[address] Rodriguez for small subdural hematomas and scattered subarachnoid hemorrhages. At this office visit she reported intermittent headaches and feeling fatigued. No neurosurgical interventions were needed at that time and she was monitored with repeat CT brain imaging. Last CT brain imaging performed on 09/19/2020 showed resolution of subarachnoid hemorrhage and subdural hydromas that appeared stable and chronic in nature. Contacted office and reported daily headaches to our legal secretary, which prompted her concern and the patient was then transferred over to myself. Patient reports headaches on an almost daily basis that are responsive to Tylenol. She reports headaches are located in left temporal area across forehead. She denies any speech deficit, seizure activity, motor or sensory deficits. She does report feeling tired but denies lethargy. She denies any recent falls or head trauma and denies taking antiplatelet or anticoagulant. At this time and I reassured her of her most recent CT brain which demonstrated resolution of subarachnoid hemorrhage and chronic/stable subdural hygromas. At this time, her headaches are treatable with Tylenol she denies any severe or debilitating headache, nausea/vomiting, or lethargy. I do not believe her headaches are most likely related to head trauma. I cautioned her about red flags to report immediately including severe headache not responsive to Tylenol, nausea/vomiting, speech deficits, motor or sensory deficits, or seizure activity. For treatment of her daily headaches I encouraged her to attempt to improve diet, exercise, and sleep patterns to aid in medical management of this problem. Offered to schedule her an appointment with myself or another provider here at [facility], she did not feel that was necessary at this time and was thankful for our conversation and reports she will work on daily habits. Luz Elena Irving APRN-[facility] Neurosurgery Nurse Practitioner [facility] 08/21/2021 2:44 PM Allergies As of Date: 08/21/2021 Noted Allergy Reaction ADHESIVE TAPE (ROSINS) 02/18/2012 2 - Rash PENICILLINS 02/18/2012 2 - Rash Date Reviewed: 02/14/2021 Reviewed by: Anat Rosario Ma - Fully Assessed Reason for Visit: Patient Update [1234] Prescriptions as of 08/21/2021 - acetaminophen (TYLENOL) 500 mg tablet Take 2 tablets by mouth every 6 hours as needed. MAX: 3000mg per 24 hours - ondansetron orally disintegrating (ZOFRAN ODT) 4 mg disintegrating tablet Take 4 mg by mouth every 8 hours as needed for Nausea/Vomiting. - atorvastatin (LIPITOR) 10 mg tablet Take 10 mg by mouth once daily. - cyanocobalamin, vitamin B-12, 5,000 mcg cap Take 1 capsule by mouth every morning. - levothyroxine (SYNTHROID) 50 mcg tablet Take 50 mcg by mouth once daily. - pantoprazole DR (PROTONIX) 40 mg tablet Take 40 mg by mouth once daily. - liothyronine (CYTOMEL) 5 mcg tablet Take 5 mcg by mouth twice daily. - nortriptyline 25 mg capsule Take 1 capsule by mouth daily at bedtime. - nortriptyline 10 mg capsule Take 1 capsule by mouth daily at bedtime. - Cholecalciferol, Vitamin D3, 5,000 unit cap Take 5,000 Units by mouth every evening. - famotidine 20 mg tablet Take 40 mg by mouth daily at bedtime. - metoprolol succinate XL, long acting, 25 mg 24 hr tablet Take 1 tablet by mouth once daily. Problem List As Of Date 08/21/2021 Noted Resolved Trapezium fracture [S62.173A] 02/25/2012 Hand crush injury [S67.20XA] 02/25/2012 ICH (intracerebral hemorrhage) ([facility]) [I61.9] 09/04/2020 Fall from horse [V80.010A] 09/06/2020 SAH (subarachnoid hemorrhage) ([facility]) [I60.9] 09/06/2020 SDH (subdural hematoma) ([facility]) [S06.5X9A] 09/06/2020 Contusion of buttock [S30.0XXA] 09/06/2020 Obesity, Class II, BMI 35-39.9 [E66.9] 09/06/2020 Encounter Status:Closed by LUZ ELENA IRVING on 08/21/21 [facility] CNOVon 09-19-2020 CNOV Office Visit (BRIAN ) EMMA [id number]) 1955 F CHT Date Time Provider Department 09/19/20 10:15 AM ANAHI RODRIGUEZ During your visit today, we recorded the following information about you: Temperature Pulse Respiration Blood pressure 97.3 degrees 72/minute 16/minute 116/72 Weight Height 93.4 kg 1.6 m Anahi Rodriguez MD 09/19/2020 10:09 AM Signed NEUROSURGERY FOLLOW UP OFFICE NOTE Anahi Rodriguez MD Date of visit: September 19, 2020 Patient Name: Ms.Sharon Leanne Hines Date of : 1955 Current Age: [age] year old Sex: female MRN/E# [id number] Last Office Visit: 09/11/2020 Chief Complaint: Patient presents with: Established Patient: hospital discharge SUBJECTIVE: Ms. Hines presents to the office today for a hospital follow up. She was seen at [facility] on 09/04/2020 following a fall from a horse. She sustained small subdural hematomas and scattered subarachnoid hemorrhages. On 09/06/2020 she was cleared for discharge and was asked to follow up in 2 weeks with a repeat CT scan, prompting her visit today. Today she states overall she is doing well and notes only mild intermittent headaches. She denies changes in vision, balance, or coordination. She presents for evaluation and plan of care. Symptoms:mild headaches, improving PREVIOUS CONSERVATIVE TREATMENTS: None PREVIOUS SURGERY: None PAIN EVALUATION 09/19/2020 0942 Pain Level: 2 Pain Location: Head Description: Aching Duration Units: Weeks Frequency: Intermittent Intervention: Medication PAST MEDICAL HISTORY Diagnosis Date - ACL (anterior cruciate ligament) tear - Depression - Hearing loss - Hyperlipidemia - Hypertension - Skin cancer on her back PAST SURGICAL HISTORY Procedure Laterality Date - DANDC, DIAG AND/OR THERAPEUTIC Dilation AND curettage - KNEE ARTHROSCOPY 1999 Left - PAST SURGICAL HISTORY OF 12/2011 Incision and Drainage of right hand infection - REMOVAL GALLBLADDER 1991 - SKIN GRAFT HAND <20 SQ CM 01/2012 FAMILY HISTORY Problem Relation Age of Onset - Hypertension Mother - Heart Mother Irregular heart beat - Cancer Father lung - Hypertension Father ALLERGIES Allergen Reactions - Adhesive Tape (Sun* Rash - Penicillins Rash Current Outpatient Medications Medication Sig Dispense Refill - acetaminophen (TYLENOL) 500 mg tablet Take 2 tablets by mouth every 6 hours as needed. MAX: 3000mg per 24 hours - ondansetron orally disintegrating (ZOFRAN ODT) 4 mg disintegrating tablet Take 4 mg by mouth every 8 hours as needed for Nausea/Vomiting. - atorvastatin (LIPITOR) 10 mg tablet Take 10 mg by mouth once daily. - cyanocobalamin, vitamin B-12, 5,000 mcg cap Take 1 capsule by mouth every morning. - levothyroxine (SYNTHROID) 50 mcg tablet Take 50 mcg by mouth once daily. - pantoprazole DR (PROTONIX) 40 mg tablet Take 40 mg by mouth once daily. - liothyronine (CYTOMEL) 5 mcg tablet Take 5 mcg by mouth twice daily. - nortriptyline 25 mg capsule Take 1 capsule by mouth daily at bedtime. 0 - nortriptyline 10 mg capsule Take 1 capsule by mouth daily at bedtime. 0 - Cholecalciferol, Vitamin D3, 5,000 unit cap Take 5,000 Units by mouth every evening. 0 - famotidine 20 mg tablet Take 40 mg by mouth daily at bedtime. 0 - metoprolol succinate XL, long acting, 25 mg 24 hr tablet Take 1 tablet by mouth once daily. 0 - levETIRAcetam (KEPPRA) 1,000 mg tablet Take 1 tablet by mouth twice daily for 11 doses. (Patient not taking: Reported on 09/19/2020 ) 11 tablet 0 No current facility-administered medications for this visit. REVIEW OF SYSTEMS Review of Systems Constitutional: Negative for chills, diaphoresis and fever. HENT: Negative for congestion, ear pain and sinus pressure. Eyes: Negative for discharge and redness. Respiratory: Negative for cough, shortness of breath and wheezing. Cardiovascular: Positive for palpitations. Negative for chest pain and leg swelling. Gastrointestinal: Negative for constipation, diarrhea and nausea. Endocrine: Negative for cold intolerance and heat intolerance. Genitourinary: Negative for difficulty urinating, frequency and urgency. Musculoskeletal: Positive for gait problem. Negative for back pain and neck pain. Skin: Negative for rash and wound. Allergic/Immunologic: Negative for environmental allergies and food allergies. Neurological: Positive for weakness and headaches. Negative for dizziness and numbness. Hematological: Does not bruise/bleed easily. Psychiatric/Behaviora l: Negative for agitation. The patient is not nervous/anxious. OBJECTIVE: BP 116/72 Pulse 72 Temp 97.3 Resp 16 Ht 5' 3 (1.60m) Wt 206 lb (93.4kg) SpO2 96% BMI 36.50 kg/(m2). Physical Exam HENT: Head: Normocephalic and atraumatic. Right Ear: External ear normal. Left Ear: External ear normal. Eye (more content not included)... Normal [facility] CT BRAIN WO IVCONon 09-20-[address] BRAIN WO IVCON * * *Final Report* * * DATE OF EXAM: Sep 19 2020 9:39AM A1C 0504 - CT BRAIN WO IVCON / PROCEDURE REASON: Intracranial hemorrhage (HCC) * * * * Physician Interpretation * * * * EXAMINATION: CT BRAIN WO IVCON CLINICAL HISTORY: Intracranial hemorrhage (HCC) fell from horse 08/2020, follow up SDH, SAH SAH, no complaints TECHNIQUE: Serial axial images without IV contrast were obtained from the vertex to the foramen magnum. MQ: [id number] CT Radiation dose: Integrated Dose-Length Product (DLP) for this visit = 695.20 mGy*cm CT Dose Reduction Employed: No dose reduction techniques were required COMPARISON: 09/05/[address] RESULT: Post-operative change: None. Acute change: No evidence of an acute infarct or other acute parenchymal process. Hemorrhage: Interval resolution of small volume extra-axial hemorrhage in the mid right frontal level as well as the posterior right frontal-parietal region at the level the vertex. Interval resolution of small extra-axial hemorrhage right temporal region. No evidence of acute intracranial hemorrhage. ECASS hemorrhagic transformation score: Not Applicable Mass Lesion / Mass Effect: There is no evidence of an intracranial mass or extraaxial fluid collection. No significant mass effect. Chronic change: None apparent. Parenchyma: Stable mild bifrontal lobe atrophic changes. Ventricles: The ventricles are within normal limits of size and configuration for age. Paranasal sinuses and skull base: The visualized paranasal sinuses are grossly clear. The skull base and imaged soft tissues are unremarkable. [facility]om[facility] Nurse Practitioner (topogram) images: No additional findings IMPRESSION: 1.Interval resolution of small volume extra-axial hemorrhage in the mid right frontal level as well as the posterior right frontal-parietal region at the level the vertex. Interval resolution of small extra-axial hemorrhage right temporal region. 2. No evidence of acute interval rebleeding. No CT evidence of posttraumatic encephalomalacia. Cottage Supervisor: DAVID Transcribe Date/Time: Sep 19 2020 11:22A Dictated by : MARCELL DHALIWAL MD This examination was interpreted and the report reviewed and electronically signed by: MARCELL DHALIWAL MD on Sep 19 2020 11:40AM EST [id number] N [facility] CNPN Telephone (NUAGAK) EMMA HINES ([id number]) 1955 F CHT Date Time Provider Department 09/11/20 ANAHI RODRIGUEZ During your visit today, we recorded the following information about you: Lynsey Lopez 09/11/2020 11:48 AM Signed Ms. Hines called into the office and states that she has been sitting up for several hours today and is experiencing some lightheadedness. She states this is the first time since her fall/hospitalization that she has sat up for this long. She denies headaches, changes in vision, balance, or coordination. I encouraged her to monitor this and increase fluids as able. I encouraged her to rest and see if her symptoms improve. If dizziness does not improve after above measures, she should return to the ER for further evaluation. I advised her of all signs and symptoms prompting immediate evaluation in the ER. She verbalized understanding and was appreciative. Lynsey Lopez Allergies As of Date: 09/11/2020 Noted Allergy Reaction ADHESIVE TAPE (ROSINS) 02/18/2012 2 - Rash PENICILLINS 02/18/2012 2 - Rash Date Reviewed: 09/06/2020 Reviewed by: Janna CopelandRn) JB Leigh - Fully Assessed Reason for Visit: Patient Question [7447] Prescriptions as of 09/11/2020 Sig: ACETAMINOPHEN 500 MG TABLET Take 2 tablets by mouth every* LEVETIRACETAM 1,000 MG TABLET Take 1 tablet by mouth twice * ONDANSETRON 4 MG DISINTEGRATI* Take 4 mg by mouth every 8 ho* ATORVASTATIN 10 MG TABLET Take 10 mg by mouth once haroon* CYANOCOBALAMIN (VITAMIN B-12)* Take 1 capsule by mouth every* LEVOTHYROXINE 50 MCG TABLET Take 50 mcg by mouth once ignacio* PANTOPRAZOLE 40 MG TABLET,DEL* Take 40 mg by mouth once haroon* LIOTHYRONINE 5 MCG TABLET Take 5 mcg by mouth twice ignacio* * NORTRIPTYLINE 25 MG CAPSULE Take 1 capsule by mouth daily* * NORTRIPTYLINE 10 MG CAPSULE Take 1 capsule by mouth daily* * CHOLECALCIFEROL (VITAMIN D3) * Take 5,000 Units by mouth cheng* * FAMOTIDINE 20 MG TABLET Take 40 mg by mouth daily at * * METOPROLOL SUCCINATE ER 25 MG* Take 1 tablet by mouth once d* Problem List As Of Date 09/11/2020 Noted Resolved Trapezium fracture [S62.173A] 02/25/2012 Hand crush injury [S67.20XA] 02/25/2012 ICH (intracerebral hemorrhage) ([facility]) [I61.9] 09/04/2020 Fall from horse [V80.010A] 09/06/2020 SAH (subarachnoid hemorrhage) ([facility]) [I60.9] 09/06/2020 SDH (subdural hematoma) ([facility]) [S06.5X9A] 09/06/2020 Contusion of buttock [S30.0XXA] 09/06/2020 Obesity, Class II, BMI 35-39.9 [E66.9] 09/06/2020 Encounter Status:Closed by LYNSEY LOPEZ on 09/11/20 Normal [facility] Basic metabolic 2000 panelon 09-06-2020 Anion gap [Moles/Vol] 6 mmol/L Low 9-18 [facility] Comment on above: Order Comment: Speci men Type: BLOOD SPECIMEN Performed By: #### 1 4979-9, 44192-5 #### [facility] CLIA [id number] [address] [place] [address] Calcium [Mass/Vol] 8.1 mg/dL Low 8.5-10.2 [facility] Comment on above: Order Comment: Speci men Type: BLOOD SPECIMEN Performed By: #### 1 4979-9, 77373-3 #### [facility] CLIA [id number] [address] [place] [address] Chloride [Moles/Vol] 109 mmol/L High 97-105 [facility] Comment on above: Order Comment: Speci men Type: BLOOD SPECIMEN Performed By: #### 1 4979-9, 27832-1 #### [facility] CLIA [id number] [address] [place] [address] CO2 [Moles/Vol] 24 mmol/L Normal 22-30 [facility] Comment on above: Order Comment: Speci men Type: BLOOD SPECIMEN Performed By: #### 1 49799, 07772-9 #### [facility] CLIA [id number] [address] [place] [address] Creatinine [Mass/Vol] 0.86 mg/dL Normal 0.58-0.96 [facility] Comment on above: Order Comment: Speci men Type: BLOOD SPECIMEN Performed By: #### 1 4979, 96106-8 #### [facility] CLIA [id number] [address] [place] [address] GFR/1.73 sq M.predicted MDRD (S/P/Bld) [Vol rate/Area] mL/min/{1.73_m2} Normal [facility] Comment on above: Order Comment: Speci men Type: BLOOD SPECIMEN Result Comment: >60 eGFR (Estimated GFR) Units of measure: mL/min/1.73 meters squared eGFR is derived from the reexpressed MDRD Study equation using the following parameters: serum creatinine, age, gender and race. The creatinine assay has been calibrated to be traceable to IDMS. An eGFR <60 mL/min/1.73m2 for >3 months is consistent with chronic kidney disease. Refer to KDOQI guidelines for clinical interpretation. In patients with unstable renal function, e.g. those with acute kidney injury, the eGFR may not accurately reflect actual GFR. Performed By: #### 1 4979-9, 31782-9 #### [facility] CLIA [id number] [address] [place] [address] Glucose [Mass/Vol] 92 mg/dL Normal 74-99 [facility] Comment on above: Order Comment: Speci men Type: BLOOD SPECIMEN Result Comment: The [place] Diabetes Association (ADA) provides guidance for cutoff values for fasting glucose and random glucose. The ADA defines fasting as no caloric intake for at least 8 hours. Fasting plasma glucose results between 100 to 125 mg/dL indicate increased risk for diabetes (prediabetes). Fasting plasma glucose results greater than or equal to 126 mg/dL meet the criteria for diagnosis of diabetes. In the absence of unequivocal hyperglycemia, results should be confirmed by repeat testing. In a patient with classic symptoms of hyperglycemia or hyperglycemic crisis, random plasma glucose results greater than or equal to 200 mg/dL meet the criteria for diagnosis of diabetes. Reference: Standards of Medical Care in Diabetes 2016, [place] [employer]. Diabetes Care. 2016.39(Suppl 1). Performed By: #### 1 4979-9, 33528-1 #### [facility] CLIA [id number] [address] [place] [address] Potassium [Moles/Vol] 4.2 mmol/L Normal 3.7-5.1 [facility] Comment on above: Order Comment: Speci men Type: BLOOD SPECIMEN Performed By: #### 1 4979-9, 85896-4 #### [facility] CLIA [id number] [address] [place] [address] Sodium [Moles/Vol] 139 mmol/L Normal 136-144 [facility] Comment on above: Order Comment: Speci men Type: BLOOD SPECIMEN Performed By: #### 1 4979-9, 27594-5 #### [facility] CLIA [id number] [address] [place] [address] Urea nitrogen [Mass/Vol] 15 mg/dL Normal 7-21 [facility] Comment on above: Order Comment: Speci men Type: BLOOD SPECIMEN Performed By: #### 1 4979-9, 64569-5 #### [facility] CLIA [id number] [address] [place] [address] CBC W Auto Differential pane l (Bld)on 09-06-2020 Basophils (Bld) [#/Vol] 0.04 10*3/uL Normal <0.11 [facility] Comment on above: Order Comment: Speci men Type: BLOOD SPECIMEN Performed By: #### 5 8410-2 #### [facility] CLIA [id number] [address] [place] [address] Basophils/100 WBC (Bld) 0.9 % Normal [facility] Comment on above: Order Comment: Speci men Type: BLOOD SPECIMEN Performed By: #### 5 8410-2 #### [facility] CLIA [id number] [address] [place] [address] Differential cell count method Nom (Bld) Auto Normal [facility] Comment on above: Order Comment: Speci men Type: BLOOD SPECIMEN Performed By: #### 5 8410-2 #### [facility] CLIA [id number] [address] [place] [address] Eosinophils (Bld) [#/Vol] 0.14 10*3/uL Normal <0.46 [facility] Comment on above: Order Comment: Speci men Type: BLOOD SPECIMEN Performed By: #### 5 8410-2 #### [facility] CLIA [id number] [address] [place] [address] Eosinophils/100 WBC (Bld) 3.1 % Normal [facility] Comment on above: Order Comment: Speci men Type: BLOOD SPECIMEN Performed By: #### 5 8410-2 #### [facility] CLIA [id number] [address] [place] [address] Erythrocyte distribution width (RBC) [Ratio] 14.1 % Normal 11.5-15.0 [facility] Comment on above: Order Comment: Speci men Type: BLOOD SPECIMEN Performed By: #### 5 8410-2 #### [facility] CLIA [id number] [address] [place] [address] Hematocrit (Bld) [Volume fraction] 33.7 % Low 36.0-46.0 [facility] Comment on above: Order Comment: Speci men Type: BLOOD SPECIMEN Performed By: #### 5 8410-2 #### [facility] CLIA [id number] [address] [place] [address] Hemoglobin (Bld) [Mass/Vol] 10.7 g/dL Low 11.5-15.5 [facility] Comment on above: Order Comment: Speci men Type: BLOOD SPECIMEN Performed By: #### 5 8410-2 #### [facility] CLIA [id number] [address] [place] [address] IMMATURE GRAN % 0.2 % Normal [facility] Comment on above: Order Comment: Speci men Type: BLOOD SPECIMEN Performed By: #### 5 8410-2 #### [facility] CLIA [id number] [address] [place] [address] IMMATURE GRAN ABS <0.03 Normal <0.10 [facility] Comment on above: Order Comment: Speci men Type: BLOOD SPECIMEN Performed By: #### 5 8410-2 #### [facility] CLIA [id number] [address] [place] [address] Lymphocytes (Bld) [#/Vol] 1.50 10*3/uL Normal 1.00-4.00 [facility] Comment on above: Order Comment: Speci men Type: BLOOD SPECIMEN Performed By: #### 5 8410-2 #### [facility] CLIA [id number] [address] [place] [address] Lymphocytes/100 WBC (Bld) 32.9 % Normal [facility] Comment on above: Order Comment: Speci men Type: BLOOD SPECIMEN Performed By: #### 5 8410-2 #### [facility] CLIA [id number] [address] [place] [address] MCH (RBC) [Entitic mass] 26.9 pg Normal 26.0-34.0 [facility] Comment on above: Order Comment: Speci men Type: BLOOD SPECIMEN Performed By: #### 5 8410-2 #### [facility] CLIA [id number] [address] [place] [address] MCHC (RBC) [Mass/Vol] 31.8 g/dL Normal 30.5-36.0 [facility] Comment on above: Order Comment: Speci men Type: BLOOD SPECIMEN Performed By: #### 5 8410-2 #### [facility] CLIA [id number] [address] [place] [address] MCV (RBC) [Entitic vol] 84.7 fL Normal 80.0-100.0 [facility] Comment on above: Order Comment: Speci men Type: BLOOD SPECIMEN Performed By: #### 5 8410-2 #### [facility] CLIA [id number] [address] [place] [address] Monocytes (Bld) [#/Vol] 0.51 10*3/uL Normal <0.87 [facility] Comment on above: Order Comment: Speci men Type: BLOOD SPECIMEN Performed By: #### 5 8410-2 #### [facility] CLIA [id number] [address] [place] [address] Monocytes/100 WBC (Bld) 11.2 % Normal [facility] Comment on above: Order Comment: Speci men Type: BLOOD SPECIMEN Performed By: #### 5 8410-2 #### [facility] CLIA [id number] [address] [place] [address] Neutrophils (Bld) [#/Vol] 2.36 10*3/uL Normal 1.45-7.50 [facility] Comment on above: Order Comment: Speci men Type: BLOOD SPECIMEN Performed By: #### 5 8410-2 #### [facility] CLIA [id number] [address] [place] [address] Neutrophils/100 WBC (Bld) 51.7 % Normal [facility] Comment on above: Order Comment: Speci men Type: BLOOD SPECIMEN Performed By: #### 5 8410-2 #### [facility] CLIA [id number] [address] [place] [address] Nucleated RBC (Bld) [#/Vol] 10*3/uL Normal <0.01 [facility] Comment on above: Order Comment: Speci men Type: BLOOD SPECIMEN Performed By: #### 5 8410-2 #### [facility] CLIA [id number] [address] [place] [address] Nucleated RBC/100 WBC (Bld) [Ratio] 0.0 /100 WBC Normal 0.0 [facility] Comment on above: Order Comment: Speci men Type: BLOOD SPECIMEN Performed By: #### 5 8410-2 #### [facility] CLIA [id number] [address] [place] [address] Platelet mean volume (Bld) [Entitic vol] 9.4 fL Normal 9.0-12.7 [facility] Comment on above: Order Comment: Speci men Type: BLOOD SPECIMEN Performed By: #### 5 8410-2 #### [facility] CLIA [id number] [address] [place] [address] Platelets (Bld) [#/Vol] 220 10*3/uL Normal 150-400 [facility] Comment on above: Order Comment: Speci men Type: BLOOD SPECIMEN Performed By: #### 5 8410-2 #### [facility] CLIA [id number] [address] [place] [address] RBC (Bld) [#/Vol] 3.98 10*6/uL Normal 3.90-5.20 [facility] Comment on above: Order Comment: Speci men Type: BLOOD SPECIMEN Performed By: #### 5 8410-2 #### [facility] CLIA [id number] [address] [place] [address] WBC (Bld) [#/Vol] 4.56 10*3/uL Normal 3.70-11.00 [facility] Comment on above: Order Comment: Speci men Type: BLOOD SPECIMEN Performed By: #### 5 8410-2 #### [facility] CLIA [id number] [address] [place] [address] CNDSon 09-06-2020 [facility] HNO ID: [id number] Author: Milton Aaron ([place]) Service: General Surgery Author Type: Physician Recovery Rn Type: Discharge Summary Filed: 09/06/2020 3:02 PM Note Text: Attestation signed by Yoan Parkinson at 09/06/2020 3:55 PM SIGNATURE: Yoan Parkinson MD PATIENT NAME: Emma Hines DATE: September 06, 2020 TIME: 3:55 PM Pager: [phone] DISCHARGE SUMMARY PATIENT NAME: Emma Hines Code Status: Not on file Highest Readmission Risk Score: 13 The 30 day readmissions risk score is derived from an internally validated risk model which evaluates patient level characteristics, utilization history, medication orders and lab results up until the day of discharge. Patients with a score of 40 or above are considered highest risk for readmission. Specific patient level drivers will be listed at the bottom of the summary. Admission Information Admission Information ADMIT DATE: 09/04/2020 DISCHARGE DATE: 09/06/2020 MY DOCTORS AND MEDICAL TEAM: My Main Hospital Doctor: Elyse Engle Primary Care Provider: Sosa Chandler DO My Medical Team Members: Treatment Team: Attending Provider: Elyse Engle Consulting: Elyse Engle Consulting: Anahi Rodriguez MY CONDITION AT DISCHARGE: Stable REASON I WAS IN THE HOSPITAL: Traumatic Brain Injury (TBI); Fall from a horse resulting SUMMARY OF WHAT HAPPENED WHILE I WAS IN THE HOSPITAL: Ms. Hines was evaluated by the trauma surgery team at [facility] as a transfer from [facility] after a fall from a horse on 09/04/2020. Initial CT imaging completed at [place] identified both subdural and subarachnoid hemorrhages (brain bleeds) along with a soft tissue contusion of the left hip. No other injuries were identified on review of her imaging. She was admitted to the ICU for close monitoring and placed on a 7-day course of Keppra for seizure prevention. She was evaluated by the neurosurgery team who recommended non-surgical treatment of her traumatic brain injury. Repeat CT scan of the brain completed on 09/05/2020 showed stable/improved findings with regards to her bleed. Ms. Hines was transferred to the regular surgical nursing floor in stable condition where she was evaluated by the physical, occupational and speech therapy teams who recommended home with outpatient therapy at discharge for which she was in agreement. Ms. Hines was determined medically stable for discharge home 09/06/2020 and was provided instructions for follow-up with neurosurgery. OTHER PROBLEMS/DIAGNOSIS: Active Problems: ICH (intracerebral hemorrhage) (HCC) Fall from horse SAH (subarachnoid hemorrhage) (HCC) SDH (subdural hematoma) (HCC) Contusion of buttock Resolved Problems: * No resolved hospital problems. * OPERATIONS PERFORMED WHILE IN THE HOSPITAL: None IMPORTANT TEST/PROCEDURES: No procedures performed TEST RESULTS NOT AVAILABLE AT THIS TIME: No pending results Discharge Disposition Discharge Disposition: Home With Self Care Discharge Disposition Discharge Disposition: Home With Self Care Activity When You Leave the Hospital Do not bend over at the waist to lift heavy objects May bathe and shower May bathe and shower No driving for: Until cleared by the neurosurgery team. No prolonged bedrest, longer than 8 hours in a 24 hour period No walking restrictions Resume pre-hospital activity Diet Instructions Avoid Alcohol Drink 6 to 8 glasses of fluids per day Resume your pre-hospital diet For Pain When You Leave the Hospital No alcohol or driving while on pain medication Use acetaminophen (Tylenol) as recommended on the bottle Use the dispensed medication (see prescription) Call Your Doctor If You have a severe headache You have lightheadedness, fainting, or confusion You have pain and swelling in your legs, especially if it is only on one side and not the other You have persistent nausea/vomiting over 24 hours You have swollen glands or cold and clammy skin Your temperature is greater than 101F Follow Up Appointments Follow-Up Appointment Please call and schedule your follow-up evaluation with the neurosurgeon. When: In 2 weeks Patient/Parents to call for appointment?: Yes Anahi Rodriguez [phone] [place] [address] PCP Requested Referral Follow-Up Appointment Please schedule a follow-up evaluation with your primary care provider at discharge. When: In 2 weeks Patient/Parents to call for appointment?: Yes Sosa Chandler, [address] [place] [address] PCP Requested Referral Additional Provider to Provider Information: No notes on file Treatment Team: Attending Provider: Elyse (more content not included)... Normal [facility] THERAPY NTon 09-06-2020 THERAPY NT HNO ID: [id number] Author: Radha (Pt) Niels Service: Physical Therapy Author Type: Physical Therapist Type: Therapy (PT/OT/Speech/Resp) Filed: 09/06/2020 1:49 PM Note Text: Physical Therapy Evaluation SERVICE DATE: 09/06/2020 SERVICE TIME: 927 to 951 ROOM: [place] [address] Recommended Discharge Disposition: Outpatient Physical Therapy Recommended Discharge Disposition Comments: patient will need outpatient vestibular PT due to fear avoidance of head movements/dizziness Anticipated Discharge Needs: Physical Assist at Home Physical Assist at Home for: Cleaning;Laundry;Kat sportation Recommended Discharge Equipment: Wheeled Walker PT 6 Clicks Score: 18 Precautions/Activity Restrictions: Fall Risk Isolation Type: None Current Hospital Course: 64 yo female s/p fall off a horse sustaining small SAH to R frontal and R parietal, soft tissue injury to L hip/buttock Reason for Hospital Admission: fall from horse Relevant Past Medical History: non contributary Physical Therapy Problem List: Education Deficit;Safety Deficits;Decreased Activity Tolerance;Decreased Strength;Functional Mobility Impairment;Balance Impaired Treatment Interventions: Education;Strengtheni ng;Functional Mobility Training;Balance Training;Neuromuscula r Re-education Home Environment Patient Lives With: Spouse Assistance Available: multimedia services coordinator Entry To Home: Stairs;Without Rail Number Of Stairs Into Home: 3 Number Of Stairs To Bed/Bath: 0 Tub/Shower Type: walk in shower Equipment Owned: Standard Walker;Shower Chair Prior Functional Level: Within Functional Limits Prior Functional Level Comments: completely independent prior to admission, works, drives CURRENT FUNCTIONAL STATUS: Most recent performance Current Functional Mobility Assist Level Additional Information Rolling Supine to Sit Sit to Supine Scooting Sit to Stand Contact Guard Assistance;Additional Information Stand to Sit Contact Guard Assistance;Additional Information Bed to Chair Toilet/Commode Gait Contact Guard Assistance;Additional Information Gait Device: Hand Held Assist;Wheeled Walker Gait Distance (feet): 10ft, 35ft Stairs Curb Step Car Transfer Blank bailey indicate activity not attempted General Deviations/Observatio ns: Monica decreased;Difficulty changing direction/turning;Non -functional gait speed;Step length decreased;Wide base of support Range of Motion: Lower Extremity Comments Right Lower Extremity ROM Comments: WFL Left Lower Extremity ROM Comments: WFL Strength: Lower Extremity Comments Right Lower Extremity Strength Comments: WFL Left Lower Extremity Strength Comments: WFL Balance: Static Sitting;Dynamic Sitting;Static Standing;Dynamic Standing Static Sitting Balance: Good Patient able to maintain balance without handhold support, limited postural sway Dynamic Sitting Balance: Fair Patient accepts minimal challenge, able to maintain balance while turning head/trunk Static Standing Balance: Fair Patient able to maintain balance with handhold support, may require occasional minimal assistance Dynamic Standing Balance: Fair Patient accepts minimal challenge, able to maintain balance while turning head/trunk JH-HLM: 7: Walk 25 feet or more Learning/Educational Needs: Discharge Plan;Functional Activities/Mobility;P mel of Care;Rehabilitation Techniques and Procedures;Safety Goals for Plan of Care: Patient /Caregiver Goals: Go Home Able to perform HEP with: Stand By Assistance (balance program) Transfer supine to/from sit with: Independent Transfer sit to/from stand with: Independent Ambulate with: Independent Distance: 100ft intervals Device: No Device Ambulate up and down steps with: Stand By Assistance Number of steps: 3 Device: Hand Held Assist Rehab Potential: Good Patient will be discontinued from Physical Therapy when no further skilled needs are identified in this setting. PLAN: Treatment Frequency (times per week): 5 (3-5) Current admission Plan of Care developed with: Patient TREATMENT INTERVENTIONS: Therapy Diagnosis: Reduced mobility-other;Muscle Weakness (generalized);Unstead iness on feet;Abnormalities of gait and mobility-other;Genera l symptoms and signs-other;Difficult y walking-musculoskelet al Interventions Provided: Evaluation;Therapeuti c Activity (79710) $ Evaluation-Moderate (05128) Billed Units: 1 unit Therapeutic Activity (36004) Treatment Minutes: 8 $ Therapeutic Activity (74436) Billed Units: 1 unit Worked on ambulation at walker for increased independence. Discussed recommendation for outpatient vestibular physical therapy, graded head movements to improve fear avoidance, initiate in seated position for safety. Total Timed Code Treatment Minutes: 8 Total Treatment Time (minutes): 24 Please see discipline specific clinical documentation flowsheet for complete details for this therapy evaluation/treatment. SIGNATURE: Radha Bowser (more content not included)... Normal [facility] THERAPY NT HNO ID: [id number] Author: Ashwini Hines/Yao Eugene Service: Occupational Therapy Author Type: Occupational Therapist Type: Therapy (PT/OT/Speech/Resp) Filed: 09/06/2020 11:46 AM Note Text: Occupational Therapy Evaluation SERVICE DATE: 09/06/2020 SERVICE TIME: 1032 to 1113 ROOM: [id number] Recommended Discharge Disposition: Outpatient Occupational Therapy Recommended Discharge Disposition Comments: [facility] outpatient OT to maximize functional mobility and balance for iADLs Anticipated Discharge Needs: Physical Assist at Home Physical Assist at Home for: Cleaning;Laundry;Kat sportation OT 6 Clicks Score: 19 Facilitated completion of the Elvis Cognitive Assessment (MOCA), which is a rapid screening instrument for mild cognitive dysfunction. Results are as follows: Visuospatial/Executiv e 5 /5 Namin /3 Digits: 2 /2 Letters: 1 /1 Subtraction: 3 /3 Repetition: 1 /2 Fluency: 0 /1 Abstraction: 2 /2 Delayed Recall: 3 /5 Orientation: 6 /6 Points For Educational Level: 0 MoCA Total Score (out of 30) 26 /30 The total possible score is 30 points; a score of 26 or above is considered normal (no cognitive impairment). Patient demonstrates no deficits in visuospatial / executive functioning, min deficits in memory, no deficits in attention and concentration, no deficits in language, no deficits in abstraction/conceptua l thinking, and no deficits in orientation. The MoCA was administered by an Officially Certified Occupational Therapist. Precautions/Activity Restrictions: Fall Risk Isolation Type: None Current Hospital Course: 64 yo female s/p fall off a horse sustaining small SAH to R frontal and R parietal, soft tissue injury to L hip/buttock Reason for Hospital Admission: fall from horse Relevant Past Medical History: non contributary Response to Therapy Interventions: Good participation in activities, Requires additional time to complete activities (limited by dizziness) Continue skilled needs due to: Functional impairment Occupational Therapy Problem List: Impaired Self Care;Decreased Activity Tolerance;Functional Mobility Impairment;Balance Impaired Cognition/Communicati on Deficits Responsiveness: Alert, Awake Follows Commands: 3-step Commands Cognitive Activities Performed: Patient completes MoCA version 1 this session and scored 26/30 Treatment Interventions: Education;Self Care / Home Management;Functional Mobility Training;Balance Training Plan for next visit: Dressing training, Grooming training, Standing tolerance, Standing balance Home Environment Patient Lives With: Spouse Assistance Available: multimedia services coordinator Entry To Home: Stairs;Without Rail Number Of Stairs Into Home: 3 Number Of Stairs To Bed/Bath: 0 Tub/Shower Type: walk in shower Equipment Owned: Standard Walker;Shower Chair Prior Functional Level: Within Functional Limits Prior Functional Level Comments: completely independent prior to admission, works, drives Patient Report: pt pleasant and agreeable to OT. Fearful of turning neck due to onset of severe dizziness. CURRENT FUNCTIONAL STATUS: Most recent performance Current Activities of Daily Living Assist Level Additional Information Feeding Set Up Grooming Contact Guard Assistance provided patient with CGA to complete hair deconditioning, combing, and styling of hair seated in bedside chair Bathing Upper Body Contact Guard Assistance Bathing Lower Body Minimal Assistance Dressing Upper Body Contact Guard Assistance Dressing Lower Body Minimal Assistance provided patient with education on utilization of figure four tech for LB dressing to avoid excessive bending over and increase of pressure to head. Toileting Contact Guard Assistance Functional Mobility Assist Level Additional Information Rolling Supine to Sit Sit to Supine Scooting Sit to Stand Contact Guard Assistance Stand to Sit Contact Guard Assistance Bed to Chair Toilet/Commode Shower Functional Mobility Contact Guard Assistance Wheeled Walker Facilitated safe functional mobility within room with wheeled walker and CGA. Patient unable to complete head turns during mobility due to severe onset of dizziness causing her to become unbalanced. Educated patient on importance of turning entire body to visualize pathway during mobility to prevent falls. Patient cautiously mobilizes from door and back slowly. Blank bailey indicate activity not attempted Range of Motion: WFL Strength: WFL Balance: Static Sitting;Dynamic Sitting;Static Standing;Dynamic Standing Static Sitting Balance: Good Patient able to maintain balance without handhold support, limited postural sway Dynamic Sitting Balance: Good Patient accepts moderate challenge, able to maintain balance while picking up object off floor Static Standing Balance: Fair Patient able to maintain balance with handhold support, may require occasional minimal assistance Dynamic Standing Bal (more content not included)... Normal [facility] THERAPY NT HNO ID: [id number] Author: Phyllis (Ccc-Digital Media Specialist) OMI Campa/BUSINESS RELATIONS MANAGER Service: Speech/Swallow Author Type: Speech Language Pathologist Type: Therapy (PT/OT/Speech/Resp) Filed: 09/06/2020 9:27 AM Note Text: Speech Therapy Speech Evaluation SERVICE DATE: 09/06/2020 SERVICE TIME: 909 to 924 ROOM: [place] [address] IMPRESSION: Functional communication without limitations in: Speech, Language, Cognition Recommended Discharge Disposition: No further skilled speech therapy services anticipated Current Hospital Course: 09/04 Chest xray: no acute process. 09/05 CT Brain: right subdural hemorrhage, resolved left frontal subdural hemorrhage, trace right subarachnoid hemorrhage, unchanged small right frontal and right parietal subarachnoid hemorrhage Reason for Hospital Admission: fall from horse Rehabilitation Precautions: None Reason for Speech Therapy Consult: Cognitive Evaluation Relevant Past Medical History: depression, hearing loss, HTN, HLD Patient Report: I am hard of hearing Current Status Oral Hygiene: Clear, dry oral cavity Dentition: Retains Natural Dentition Current Feeding Method: Oral Current Diet Textures: Regular Consistency, Thin Liquids IDDSI Level 0 Current Level Of Communication: Verbal Current Management Of Secretions: Able to expectorate adequately Oral Motor Exam: Within Functional Limits Speech/Voice/Language /Cognition Speech Production: Within Functional Limits Expressive and Receptive Language: Within Functional Limits Cognition: See Cognitive Log results below The Cognitive Log (Cog-Log) is designed to be a quick quantitative measure of cognition status for use at the bedside with rehabilitation inpatients. It is intended for individuals who have achieved consistent accurate orientation, such as measured by the Orientation Log (O-Log). The Cog-Log can be used to document cognitive progress on a daily basis. All items are scored from 0 to 3 for a total possible score of 30. 3 = correct spontaneous response 2 = correct upon logical cueing (e.g., That was yesterday, so today must be...) 1 = correct upon multiple choice or phonemic cueing 0 = incorrect despite cueing, inappropriate response, or unable to respond Stimulus Response/Score Date 08/09 Time 08/09 Name of Hospital 08/09 Repeat Address 08/09 20-1 08/09 Months Reversed 08/09 30 Seconds 07/12 [facility] 08/09 Go/No-Go 08/09 Address Recall 08/09 Total Functional Communication Measure (FCM) Current FCM Level: Memory;Problem Solving FCM Memory Level: 7 FCM Problem Solving Level: 7 Patient /Caregiver Goals: Go Home PLAN: Treatment Frequency (times per week): Discontinue Therapy Services Reasons Inpatient Therapy Services Discontinued: No skilled needs Plan of Care Developed with: Patient Results and Recommendations Discussed With: Patient TREATMENT INTERVENTIONS: Therapy Diagnosis: No Skilled Need Interventions Provided: Speech Language Eval (57801) $ Speech Language Eval (27296) Billed Units: 1 unit Total Treatment Time (minutes): 15 Home Environment Prior Functional Level: Within Functional Limits Patient Lives With: Spouse Prior Swallowing Function/Diet Textures: Regular Consistency;Thin Liquids IDDSI Level 0 Please see discipline specific clinical documentation flowsheet for complete details for this therapy evaluation/treatment. SIGNATURE: Phyllis Campa CCC-BUSINESS RELATIONS MANAGER PATIENT NAME: Emma Hines DATE: September 06, 2020 TIME: 9:15 AM Normal [facility] ALLIED HEALTHon 09-05-2020 ALLIED HEALTH HNO ID: [id number] Author: José Miguel Mercer (Rt) Service: Radiology Author Type: [place] Type: Allied Health Filed: 09/05/2020 4:35 AM Note Text: Radiology Service Progress Note PATIENT NAME: Emma Hines DATE OF SERVICE: September 05, 2020 TIME: 4:35 AM PATIENT IDENTITY VERIFICATION COMPLETED USING TWO (2) IDENTIFIERS: Name and Date of confirmed by patient verbally and Name and Date of confirmed by identification band. FALL SCREENING: Has the patient had 2 falls in the last year or 1 fall with injury or currently using an Ambulatory Assistive Device (Walker, Cane, Wheelchair, Crutches, etc.)? Emergency Room Patient: Screened in ED PATIENT GENDER DATA: Female. status: : No status: NO. PATIENT RELEVANT IMPLANT DATA REVIEWED: Not Applicable RADIOLOGY DEPARTMENT: CT; Exam(s) Completed: Brain PERIPHERAL IV DATA: Not applicable SIGNED BY: RT Ruslan September 05, 2020 4:35 AM Normal [facility] Basic metabolic 2000 panelon 09-05-2020 Anion gap [Moles/Vol] 9 mmol/L Normal 9-18 [facility] Comment on above: Order Comment: Speci men Type: BLOOD SPECIMEN Performed By: #### 1 4979-9, 79490-8 #### [facility] CLIA [id number] [address] [place] [address] Calcium [Mass/Vol] 8.7 mg/dL Normal 8.5-10.2 [facility] Comment on above: Order Comment: Speci men Type: BLOOD SPECIMEN Performed By: #### 1 4979-9, 90519-3 #### [facility] CLIA [id number] [address] [place] [address] Chloride [Moles/Vol] 106 mmol/L High 97-105 [facility] Comment on above: Order Comment: Speci men Type: BLOOD SPECIMEN Performed By: #### 1 4979-9, 79173-0 #### [facility] CLIA [id number] [address] [place] [address] CO2 [Moles/Vol] 23 mmol/L Normal 22-30 [facility] Comment on above: Order Comment: Speci men Type: BLOOD SPECIMEN Performed By: #### 1 4979-9, 66414-5 #### [facility] CLIA [id number] [address] [place] [address] Creatinine [Mass/Vol] 0.88 mg/dL Normal 0.58-0.96 [facility] Comment on above: Order Comment: Speci men Type: BLOOD SPECIMEN Performed By: #### 1 4979-9, 35636-1 #### [facility] CLIA [id number] [address] [place] [address] GFR/1.73 sq M.predicted MDRD (S/P/Bld) [Vol rate/Area] mL/min/{1.73_m2} Normal [facility] Comment on above: Order Comment: Speci men Type: BLOOD SPECIMEN Result Comment: >60 eGFR (Estimated GFR) Units of measure: mL/min/1.73 meters squared eGFR is derived from the reexpressed MDRD Study equation using the following parameters: serum creatinine, age, gender and race. The creatinine assay has been calibrated to be traceable to IDMS. An eGFR <60 mL/min/1.73m2 for >3 months is consistent with chronic kidney disease. Refer to KDOQI guidelines for clinical interpretation. In patients with unstable renal function, e.g. those with acute kidney injury, the eGFR may not accurately reflect actual GFR. Performed By: #### 1 4979-9, 03155-9 #### [facility] CLIA [id number] [address] [place] [address] Glucose [Mass/Vol] 91 mg/dL Normal 74-99 [facility] Comment on above: Order Comment: Speci men Type: BLOOD SPECIMEN Result Comment: The [place] Diabetes Association (ADA) provides guidance for cutoff values for fasting glucose and random glucose. The ADA defines fasting as no caloric intake for at least 8 hours. Fasting plasma glucose results between 100 to 125 mg/dL indicate increased risk for diabetes (prediabetes). Fasting plasma glucose results greater than or equal to 126 mg/dL meet the criteria for diagnosis of diabetes. In the absence of unequivocal hyperglycemia, results should be confirmed by repeat testing. In a patient with classic symptoms of hyperglycemia or hyperglycemic crisis, random plasma glucose results greater than or equal to 200 mg/dL meet the criteria for diagnosis of diabetes. Reference: Standards of Medical Care in Diabetes 2016, [place] [employer] Association. Diabetes Care. 2016.39(Suppl 1). Performed By: #### 1 4979-9, 82120-2 #### [facility] CLIA [id number] [address] [place] [address] Potassium [Moles/Vol] 3.2 mmol/L Low 3.7-5.1 [facility] Comment on above: Order Comment: Speci men Type: BLOOD SPECIMEN Performed By: #### 1 49799, 83897-0 #### [facility] CLIA [id number] [address] [place] [address] Sodium [Moles/Vol] 138 mmol/L Normal 136-144 [facility] Comment on above: Order Comment: Speci men Type: BLOOD SPECIMEN Performed By: #### 1 4979-9, 73402-3 #### [facility] CLIA [id number] [address] [place] [address] Urea nitrogen [Mass/Vol] 20 mg/dL Normal 7-21 [facility] Comment on above: Order Comment: Speci men Type: BLOOD SPECIMEN Performed By: #### 1 4979-9, 96229-6 #### [facility] CLIA [id number] [address] [place] [address] CALCIUM IONIZED Bon 09-06-19 Calcium.ionized (BldV) [Mass/Vol] 1.15 mmol/L Normal 1.08-1.30 [facility] Comment on above: Order Comment: Speci men Type: BLOOD SPECIMEN Performed By: #### 5 8410-2 #### [facility] CLIA [id number] [address] [place] [address] Calcium.ionized adjusted to pH 7.4 (Bld) [Moles/Vol] 1.18 mmol/L Normal 1.08-1.30 [facility] Comment on above: Order Comment: Speci men Type: BLOOD SPECIMEN Performed By: #### 5 8410-2 #### [facility] CLIA [id number] [address] [place] [address] CBC W Auto Differential pane l (Bld)on 09-05-2020 Basophils (Bld) [#/Vol] 10*3/uL Normal <0.11 [facility] Comment on above: Order Comment: Speci men Type: BLOOD SPECIMEN Performed By: #### 5 7021-8 #### [facility] CLIA [id number] [address] [place] [address] Basophils/100 WBC (Bld) 0.3 % Normal [facility] Comment on above: Order Comment: Speci men Type: BLOOD SPECIMEN Performed By: #### 5 7021-8 #### [facility] CLIA [id number] [address] [place] [address] Differential cell count method Nom (Bld) Auto Normal [facility] Comment on above: Order Comment: Speci men Type: BLOOD SPECIMEN Performed By: #### 5 7021-8 #### [facility] CLIA [id number] [address] [place] [address] Eosinophils (Bld) [#/Vol] 0.04 10*3/uL Normal <0.46 [facility] Comment on above: Order Comment: Speci men Type: BLOOD SPECIMEN Performed By: #### 5 7021-8 #### [facility] CLIA [id number] [address] [place] [address] Eosinophils/100 WBC (Bld) 0.7 % Normal [facility] Comment on above: Order Comment: Speci men Type: BLOOD SPECIMEN Performed By: #### 5 7021-8 #### [facility] CLIA [id number] [address] [place] [address] Erythrocyte distribution width (RBC) [Ratio] 14.0 % Normal 11.5-15.0 [facility] Comment on above: Order Comment: Speci men Type: BLOOD SPECIMEN Performed By: #### 5 7021-8 #### [facility] CLIA [id number] [address] [place] [address] Hematocrit (Bld) [Volume fraction] 35.3 % Low 36.0-46.0 [facility] Comment on above: Order Comment: Speci men Type: BLOOD SPECIMEN Performed By: #### 5 7021-8 #### [facility] CLIA [id number] [address] [place] [address] Hemoglobin (Bld) [Mass/Vol] 11.6 g/dL Normal 11.5-15.5 [facility] Comment on above: Order Comment: Speci men Type: BLOOD SPECIMEN Performed By: #### 5 7021-8 #### [facility] CLIA [id number] [address] [place] [address] IMMATURE GRAN % 0.5 % Normal [facility] Comment on above: Order Comment: Speci men Type: BLOOD SPECIMEN Performed By: #### 5 7021-8 #### [facility] CLIA [id number] [address] [place] [address] IMMATURE GRAN ABS 0.03 k/uL Normal <0.10 [facility] Comment on above: Order Comment: Speci men Type: BLOOD SPECIMEN Performed By: #### 5 7021-8 #### [facility] CLIA [id number] [address] [place] [address] Lymphocytes (Bld) [#/Vol] 1.45 10*3/uL Normal 1.00-4.00 [facility] Comment on above: Order Comment: Speci men Type: BLOOD SPECIMEN Performed By: #### 5 7021-8 #### [facility] CLIA [id number] [address] [place] [address] Lymphocytes/100 WBC (Bld) 24.7 % Normal [facility] Comment on above: Order Comment: Speci men Type: BLOOD SPECIMEN Performed By: #### 5 7021-8 #### [facility] CLIA [id number] [address] [place] [address] MCH (RBC) [Entitic mass] 27.2 pg Normal 26.0-34.0 [facility] Comment on above: Order Comment: Speci men Type: BLOOD SPECIMEN Performed By: #### 5 7021-8 #### [facility] CLIA [id number] [address] [place] [address] MCHC (RBC) [Mass/Vol] 32.9 g/dL Normal 30.5-36.0 [facility] Comment on above: Order Comment: Speci men Type: BLOOD SPECIMEN Performed By: #### 5 7021-8 #### [facility] CLIA [id number] [address] [place] [address] MCV (RBC) [Entitic vol] 82.7 fL Normal 80.0-100.0 [facility] Comment on above: Order Comment: Speci men Type: BLOOD SPECIMEN Performed By: #### 5 7021-8 #### [facility] CLIA [id number] [address] [place] [address] Monocytes (Bld) [#/Vol] 0.65 10*3/uL Normal <0.87 [facility] Comment on above: Order Comment: Speci men Type: BLOOD SPECIMEN Performed By: #### 5 7021-8 #### [facility] CLIA [id number] [address] [place] [address] Monocytes/100 WBC (Bld) 11.1 % Normal [facility] Comment on above: Order Comment: Speci men Type: BLOOD SPECIMEN Performed By: #### 5 7021-8 #### [facility] CLIA [id number] [address] [place] [address] Neutrophils (Bld) [#/Vol] 3.67 10*3/uL Normal 1.45-7.50 [facility] Comment on above: Order Comment: Speci men Type: BLOOD SPECIMEN Performed By: #### 5 7021-8 #### [facility] CLIA [id number] [address] [place] [address] Neutrophils/100 WBC (Bld) 62.7 % Normal [facility] Comment on above: Order Comment: Speci men Type: BLOOD SPECIMEN Performed By: #### 5 7021-8 #### [facility] LABORATORY CLIA [id number] [address] [place] [address] Nucleated RBC (Bld) [#/Vol] 10*3/uL Normal <0.01 [facility] Comment on above: Order Comment: Speci men Type: BLOOD SPECIMEN Performed By: #### 5 7021-8 #### [facility] CLIA [id number] [address] [place] [address] Nucleated RBC/100 WBC (Bld) [Ratio] 0.0 /100 WBC Normal 0.0 [facility] Comment on above: Order Comment: Speci men Type: BLOOD SPECIMEN Performed By: #### 5 7021-8 #### [facility] CLIA [id number] [address] [place] [address] Platelet mean volume (Bld) [Entitic vol] 9.3 fL Normal 9.0-12.7 [facility] Comment on above: Order Comment: Speci men Type: BLOOD SPECIMEN Performed By: #### 5 7021-8 #### [facility] CLIA [id number] [address] [place] [address] Platelets (Bld) [#/Vol] 232 10*3/uL Normal 150-400 [facility] Comment on above: Order Comment: Speci men Type: BLOOD SPECIMEN Performed By: #### 5 7021-8 #### [facility] CLIA [id number] [address] [place] [address] RBC (Bld) [#/Vol] 4.27 10*6/uL Normal 3.90-5.20 [facility] Comment on above: Order Comment: Speci men Type: BLOOD SPECIMEN Performed By: #### 5 7021-8 #### [facility] CLIA [id number] [address] [place] [address] WBC (Bld) [#/Vol] 5.86 10*3/uL Normal 3.70-11.00 [facility] Comment on above: Order Comment: Speci men Type: BLOOD SPECIMEN Performed By: #### 5 7021-8 #### [facility] CLIA [id number] [address] [place] [address] CONFIRM BLOOD TYPEon 021 ABO O Normal [facility] Comment on above: Order Comment: Speci men Type: BLOOD SPECIMEN Performed By: #### C ONABO ####[facility] BANKCLIA [id number] [place] [address] Rh Nom (Bld) Positive Normal [facility] Comment on above: Order Comment: Speci men Type: BLOOD SPECIMEN Performed By: #### C ONABO ####[facility] BANKCLIA [id number] [place] [address] CONSULTon 09-05-2020 CONSULT HNO ID: [id number] Author: Elyse Engle Service: General Surgery Author Type: Physician Type: Consults Filed: 09/05/2020 1:53 PM Note Text: CONSULT: SICU Surgery Service SERVICE DATE: 09/05/2020 SERVICE TIME: 1:11 AM REASON FOR CONSULT: ICU care REQUESTING PHYSICIAN: Dr. Engle Subjective 64 year old female with a h/o hypothyroidism, HLD, HTN presents to ED via EMS s/p fall. GCS at Scene was 15. Pt reports that around approx 4pm she fell off of a horse. +LOC with unknown downtime. Later on after going about her normal day she had a syncopal episode and she was taken to the ED. She initially presented to [place], where a CT H/N/A/P was taken and she was found to have two areas of bleeding on the brain, so she was taken to [facility] for neurosurgical care. ? Pt currently denies nausea, vision changes, or other complaints. Currently AANDOx3 and maintaining her own airway without difficulty. FUNCTIONAL STATUS: Independent PAST MEDICAL HISTORY Diagnosis Date - ACL (anterior cruciate ligament) tear - Depression - Hearing loss - Hyperlipidemia - Hypertension - Skin cancer on her back PAST SURGICAL HISTORY Procedure Laterality Date - DANDC, DIAG AND/OR THERAPEUTIC Dilation AND curettage - KNEE ARTHROSCOPY 1999 Left - PAST SURGICAL HISTORY OF 12/2011 Incision and Drainage of right hand infection - REMOVAL GALLBLADDER 1991 - SKIN GRAFT HAND <20 SQ CM 01/2012 FAMILY HISTORY Problem Relation Age of Onset - Hypertension Mother - Heart Mother Irregular heart beat - Cancer Father lung - Hypertension Father Social History Tobacco Use - Smoking status: Never Smoker - Smokeless tobacco: Never Used Vaping Use - Vaping Use: Never used Substance Use Topics - Alcohol use: Yes Comment: Very Rarely - Drug use: Never (Not in a hospital admission) Current Facility-Administered Medications Medication Dose Route Frequency - [START ON 09/06/2020] metoprolol succinate ER 25 mg tab(s) (TOPROL XL) 25 mg ORAL DAILY - famotidine 20 mg tab(s) (PEPCID) 20 mg ORAL BID - [START ON 09/06/2020] levothyroxine 50 mcg tab(s) (SYNTHROID) 50 mcg ORAL DAILY - potassium chloride ER 20-40 mEq tab(s) (K-DUR, KLOR-CON) 20-40 mEq ORAL/FEEDING TUBE PRN Or - potassium chloride iv piggyback 20 mEq/100 mL 20 mEq INTRAVENOUS PRN - magnesium sulfate in sterile water 2 g in sterile water 50 ml 2 g INTRAVENOUS PRN - sodium phosphate 45 mmol in NaCl 0.9% 250 mL 45 mmol INTRAVENOUS PRN - calcium gluconate 4 g in NaCl 0.9% 250 mL 4 g INTRAVENOUS PRN - sodium chloride 0.9 % (flush) 3-5 mL (BD POSIFLUSH) 3-5 mL INTRAVENOUS q 12 H - ondansetron 4 mg tab(s) (ZOFRAN) 4 mg ORAL q 6 H PRN Or - ondansetron (PF) 4 mg injection (ZOFRAN) 4 mg INTRAVENOUS q 6 H PRN - docusate sodium 100 mg cap(s) (COLACE) 100 mg ORAL BID PRN - oxyCODONE IR 5-10 mg tab(s) (ROXICODONE) 5-10 mg ORAL q 4 H PRN - NaCl 0.9% iv infusion 100 mL/hr INTRAVENOUS CONTINUOUS - acetaminophen 1,000 mg CUP (TYLENOL) 1,000 mg ORAL q 6 H - levETIRAcetam iv piggyback 1,000 mg in NaCl (iso-osmotic) 100 mL (KEPPRA) 1,000 mg INTRAVENOUS BID Allergies As of Date: 09/04/2020 Allergen Noted Reaction ADHESIVE TAPE (ROSINS) 02/18/2012 Rash PENICILLINS 02/18/2012 Rash Fully Assessed 09/04/2020 COMPLETE REVIEW OF SYSTEMS: not fully reviewed given the emergent nature of pt Objective PHYSICAL EXAM: Physical Exam Performed: BP 127/72 Pulse 80 Temp 98.2 Resp 16 SpO2 97% PRIMARY SURVEY AIRWAY: Patent BREATHING: Breath sounds equal CIRCULATION: PT/DP 2+, Radials 2+, Femoral 2+ DISABILITY: Eye: 4=Spontaneous Verbal: 5=Oriented and Converses Motor: 6=Obeys Commands Total GCS: 15=4 Resp Rate: 10 to 29=4 Syst BP: > than 89=4 REVISED TRAUMA SCORE: 12 EXPOSE / ENVIRONMENT: Warm Blankets PROCEDURES: Cervical Collar: Removed at prior ED ? SECONDARY SURVEY VITALS: BP 124/70 Pulse 77 Temp 36.8 ?C (98.2 ?F) Resp 16 SpO2 96% ? NEURO: Alert AND Oriented x 3, GCS 15, Cranial Nerves II-XII Intact, Moves All Extremities, Strength Symmetrical, No Sensory Deficits HEENT: Head: No lacerations or abrasions, no bony step offs, midface stable to palpation, Eyes: PERRL, conjunctiva/corneas without lesions, EOM intact, Ears: Canals without blood or CSF drainage, TMs clear, external ears without lacerations, Nose: Septum midline, no crepitus with motion, Throat: Oral mucosa without lacerations, teeth in place, tongue without lacerations NECK: No midline pain with palpation, No pain with active ROM, No lacerations/wounds, No JVD, Trachea midline RESPIRATORY: No abrasions or contusions, No crepitus, No TTP, Equal Excursion CARDIOVASCULAR: Heart rate regular, S1S2 with no R/M/G ABDOMEN: Non-distended, No scars or lacerations, Non-tenderness or peritoneal signs PELVIC/PERINEAL: Normal female genitalia, Pelvis stable to palpation, No blood noted at urethra meatus, +gluteal squeeze on command (more content not included)... Normal [facility] CONSULT HNO ID: [id number] Author: Neva De La Torre Service: Neurosurgery Author Type: Resident Type: Consults Filed: 09/04/2020 10:32 PM Note Text: Attestation signed by Anahi Rodriguez at 09/05/2020 10:30 AM The patient is a 64-year-old female presenting with a traumatic small subdural hematoma as well as some scattered subarachnoid hemorrhage. None of these findings require surgical intervention. We will continue to monitor the patient's progress clinically. Neurosurgery Consult Note SERVICE DATE: 09/04/2020 SERVICE TIME: 10:17 PM PRIMARY CARE PHYSICIAN: Thais Baker MD Subjective Ms. Hines is a 64 year old female with PMH of HLD, HTN, who presented to [facility] as a transfer from OSH for evaluation of likely traumatic ICH after she fell of a horse. And patient reportedly fell off her horse around 4 PM. She had a syncopal event in her house and body very much to the events after the fall. She was evaluated at the outside hospital and was noted to have 2 small subarachnoid hemorrhages. Neurological deficits with her GCS at the outside hospital was 15 and she had no. Her CT C-spine was also negative for acute injuries and her C Spine was cleared in the trauma bay. Patient was transferred to CCU for further evaluation. In the trauma bay her exam remained stable PAST MEDICAL HISTORY Diagnosis Date - ACL (anterior cruciate ligament) tear - Depression - Hearing loss - Hyperlipidemia - Hypertension - Skin cancer on her back PAST SURGICAL HISTORY Procedure Laterality Date - DANDC, DIAG AND/OR THERAPEUTIC Dilation AND curettage - KNEE ARTHROSCOPY 1999 Left - PAST SURGICAL HISTORY OF 12/2011 Incision and Drainage of right hand infection - REMOVAL GALLBLADDER 1991 - SKIN GRAFT HAND <20 SQ CM 01/2012 FAMILY HISTORY Problem Relation Age of Onset - Hypertension Mother - Heart Mother Irregular heart beat - Cancer Father lung - Hypertension Father Social History Tobacco Use - Smoking status: Never Smoker - Smokeless tobacco: Never Used Vaping Use - Vaping Use: Never used Substance Use Topics - Alcohol use: Yes Comment: Very Rarely - Drug use: Never (Not in a hospital admission) No current facility-administered medications for this encounter. Allergies As of Date: 09/04/2020 Allergen Noted Reaction ADHESIVE TAPE (ROSINS) 02/18/2012 Rash PENICILLINS 02/18/2012 Rash Fully Assessed 09/04/2020 COMPLETE REVIEW OF SYSTEMS: See HPI for pertinent ROS General: no fevers, no weight loss Eyes: no gross vision changes, no gross double vision HEENT: no rhinorrhea, no sore throat, + Head ache, + amnesia CV: no chest pain, no palpitations Pulm: no wheezing, no shortness of breath, L and sternal chest pain GI: no abdominal pain, no nausea : no dysuria, no straining Neuro: no paralysis, no paraesthesia Psych: no mood changes, no manic episodes Skin: no jaundice, no severe skin changes Objective PHYSICAL EXAM: BP 130/62 Pulse 77 Temp 98.2 Resp 17 SpO2 99% General: Alert, in no distress Eyes: gross vision intact, no scleral icterus ENT: atraumatic, No gross abnormality CV: warm, well perfused Pulm: equal chest rise b/l, unlabored breathing on RA GI: abdomen soft, nontender, nondistended : atraumatic Skin: atraumatic, no jaundice Extremities: gross motor intact, atraumatic Psych: mood appropriate, no significant distress Neuro: orient, follows command, GCS 15, motor and sensory intact in upper and lower extremities, no C spine TTP LABS: Recent Labs 09/04/20 2131 NA 139 K 3.7 CHLOR 103 CO2 25 BUN 20 CREAT 0.95 GLUC 105* ANION 11 CA 9.3 ALB 4.1 AST 18 ALT 21 ALKPHOS 86 TBILI 0.4 WBC 9.52 HB 12.7 HCT 38.7 PLT 258 INR 1.0 DATA: Diagnostic tests reviewed for today's visit: Most recent labs and imaging results. CT CHEST WO IVCON Final Result IMPRESSION: No acute process. Cottage Supervisor: PSCB Transcribe Date/Time: Sep 04 2020 9:39P Dictated by : JESENIA THOMAS MD This examination was interpreted and the report reviewed and electronically signed by: JESENIA THOMAS MD on Sep 04 2020 9:51PM EST Impression/Recommenda tions 64 year old female with traumatic intracranial hemorrhage who is neurologically intact. ICH - Per impression from OSH records, images being uploaded - INR 1.1 - GCS 15 - Q1H Neuro check - Hold chemical DVT ppx - Elevate HOB to 30 - Keprra 1000mg BID for 7 days - Avoid hypotonic IVF - prn hydralazine for SBP goal >160 - CTH in the am D/w Dr Rodriguez at 2150 SIGNATURE: Neva De La Torre MD PATIENT NAME: Emma Hines DATE: September 04, 2020 TIME: 10:17 PM PAGER: see below Normal [facility] CT BRAIN WO IVCONon 09-06-19 CT BRAIN WO IVCON Final Report DATE OF EXAM: Sep 05 2020 4:34AM [facility] 0504 - CT BRAIN WO IVCON / PROCEDURE REASON: Intracranial hemorrhage Physician Interpretation EXAMINATION: CT BRAIN WO IVCON CLINICAL HISTORY: Intracranial hemorrhage, follow-up bleed, horse accident, syncope. Small subarachnoid hemorrhage in right frontal and right parietal lobes. TECHNIQUE: Serial axial images without IV contrast were obtained from the vertex to the foramen magnum. MQ: CTBWO_3 CT Radiation dose: Integrated Dose-Length Product (DLP) for this visit = [address] Dose Reduction Employed: Iterative recon COMPARISON: Outside CT head 09/04/2020 RESULT: [facility] Nurse Practitioner (topogram) images: No additional findings. Post-operative change: None. Acute change: See below. Hemorrhage: Small subarachnoid hemorrhage again seen along the right frontal lobe on series 2, image 14 small subarachnoid hemorrhage along the right parietal lobe seen superiorly on image 25. There are also a few small areas of subarachnoid hemorrhage along the right temporal lobe on image 16. Trace right frontal subdural hemorrhage measuring 2 mm in thickness, decreased. Left frontal subdural appears that resolved. Mass Lesion / Mass Effect: No significant mass effect. Chronic change: None apparent. Parenchyma: There is no significant volume loss. The brain parenchyma is otherwise within normal limits for age. Ventricles: The ventricles are within normal limits of size and configuration for age. Paranasal sinuses and skull base: The visualized paranasal sinuses are grossly clear. The skull base and imaged soft tissues are unremarkable. IMPRESSION: 2 mm thick right subdural hemorrhage, decreased from prior exam. Resolved left frontal subdural hemorrhage. Trace right temporal subarachnoid hemorrhage. Unchanged small right frontal and right parietal subarachnoid hemorrhages. Cottage Supervisor: PSCB Transcribe Date/Time: Sep 05 2020 8:41A Dictated by : IGSSELLE CHU MD This examination was interpreted and the report reviewed and electronically signed by: GISSELLE CHU MD on Sep 05 2020 8:53AM EST Normal [facility] ED NOTEon 09-05-2020 ED NOTE HNO ID: [id number] Author: Pritesh Rodriguez) JB Hayes Service: Emergency Medicine Author Type: Registered Nurse Type: ED Notes Filed: 09/05/2020 6:14 AM Note Text: Called vice president of software engineering to clarify to see if they wanted 4g of tylenol per day. Confirmed that is correct and they did not mean prn Normal [facility] ED NOTE HNO ID: [id number] Author: Pritesh CopelandRn) BJ Hayes Service: Emergency Medicine Author Type: Registered Nurse Type: ED Notes Filed: 09/05/2020 1:00 AM Note Text: HOB to remain greater that 40*, as initiated by this RN when I accepted this pt. Pt educated and verbalized understanding Normal [facility] ED NOTE HNO ID: [id number] Author: Pritesh CopelandRn) JB Hayes Service: Emergency Medicine Author Type: Registered Nurse Type: ED Notes Filed: 09/05/2020 12:38 AM Note Text: Doctor returned page. Notified by this RN of headache and chest pain that is aggravated by pressing on the chest wall. Normal [facility] ED NOTE HNO ID: [id number] Author: Pritesh Rodriguez) JB Hayes Service: Emergency Medicine Author Type: Registered Nurse Type: ED Notes Filed: 09/05/2020 12:06 AM Note Text: Animal Ride Manager paged ICU doctor again rt no call back yet Normal [facility] ED NOTE HNO ID: [id number] Author: Pritesh (Rn) JB Hayes Service: Emergency Medicine Author Type: Registered Nurse Type: ED Notes Filed: 09/04/2020 11:43 PM Note Text: Pt placed on female external cath. Pt c/o 11/16 headache pain. ICU doctor paged by ED legal secretary so that this RN can notify Normal [facility] Magnesium SerP-[facility] 09-05 Magnesium [Mass/Vol] 1.8 mg/dL Normal 1.7-2.3 [facility] Comment on above: Order Comment: Speci men Type: BLOOD SPECIMEN Performed By: #### 1 4979-9, 44253-6 #### [facility] CLIA [id number] [address] [place] [address] Phosphate SerPl-ncon 09-05 Phosphate [Mass/Vol] 3.2 mg/dL Normal 2.7-4.8 [facility] Comment on above: Order Comment: Speci men Type: BLOOD SPECIMEN Performed By: #### 1 4979-9, 90244-0 #### [facility] CLIA [id number] [address] [place] [address] STAPH AUREUS PCRon S. aureus and MRSA panel LAURIE+probe (Nose) Normal Negative [facility] Comment on above: Order Comment: Speci men Type: SWAB OF INTERNAL NOSE Result Comment: Nega tive for Staphylococcus aureus by PCR. Negative for MRSA by PCR Performed By: #### S APCR #### [facility] CLIA [id number] [address] [place] [address] VITAMIN D 25 HYDROXYon 09-05 25-hydroxyvitamin D3 [Mass/Vol] 59.4 ng/mL Normal 30.0-100.0 [facility] Comment on above: Order Comment: Speci men Type: BLOOD SPECIMEN Result Comment: Clas sification of 25 [place] Vitamin D status: Deficiency: < 20 ng/ml. Insufficientcy: 20-30 ng/ml. Sufficiency: 30-100 ng/ml. Performed By: #### V ITD #### [facility] CLIA [id number] [address] [place] [address] ALLIED HEALTHon 09-04-2020 ALLIED HEALTH HNO ID: [id number] Author: José Miguel Salinas (Rt) Service: Radiology Author Type: [place] Type: Allied Health Filed: 09/04/2020 9:41 PM Note Text: Radiology Service Progress Note PATIENT NAME: Emma Hines DATE OF SERVICE: September 04, 2020 TIME: 9:40 PM PATIENT IDENTITY VERIFICATION COMPLETED USING TWO (2) IDENTIFIERS: Name and Date of confirmed by patient verbally and Name and Date of confirmed by identification band. FALL SCREENING: Has the patient had 2 falls in the last year or 1 fall with injury or currently using an Ambulatory Assistive Device (Walker, Cane, Wheelchair, Crutches, etc.)? Emergency Room Patient: Screened in ED PATIENT GENDER DATA: Female. status: : No status: NO. PATIENT RELEVANT IMPLANT DATA REVIEWED: Not Applicable RADIOLOGY DEPARTMENT: CT; Exam(s) Completed: Chest PERIPHERAL IV DATA: Not applicable SIGNED BY: RT Brad September 04, 2020 9:40 PM Normal [facility] CBC panel Auto (Bld)on 09-04 Erythrocyte distribution width (RBC) [Ratio] 13.6 % Normal 11.5-15.0 [facility] Comment on above: Order Comment: Speci men Type: BLOOD SPECIMEN Performed By: #### 5 8410-2 #### [facility] CLIA [id number] [address] [place] [address] Hematocrit (Bld) [Volume fraction] 38.7 % Normal 36.0-46.0 [facility] Comment on above: Order Comment: Speci men Type: BLOOD SPECIMEN Performed By: #### 5 8410-2 #### [facility] CLIA [id number] [address] [place] [address] Hemoglobin (Bld) [Mass/Vol] 12.7 g/dL Normal 11.5-15.5 [facility] Comment on above: Order Comment: Speci men Type: BLOOD SPECIMEN Performed By: #### 5 8410-2 #### [facility] CLIA [id number] [address] [place] [address] MCH (RBC) [Entitic mass] 27.5 pg Normal 26.0-34.0 [facility] Comment on above: Order Comment: Speci men Type: BLOOD SPECIMEN Performed By: #### 5 8410-2 #### [facility] CLIA [id number] [address] [place] [address] MCHC (RBC) [Mass/Vol] 32.8 g/dL Normal 30.5-36.0 [facility] Comment on above: Order Comment: Speci men Type: BLOOD SPECIMEN Performed By: #### 5 8410-2 #### [facility] CLIA [id number] [address] [place] [address] MCV (RBC) [Entitic vol] 83.8 fL Normal 80.0-100.0 [facility] Comment on above: Order Comment: Speci men Type: BLOOD SPECIMEN Performed By: #### 5 8410-2 #### [facility] CLIA [id number] [address] [place] [address] Nucleated RBC (Bld) [#/Vol] 10*3/uL Normal <0.01 [facility] Comment on above: Order Comment: Speci men Type: BLOOD SPECIMEN Performed By: #### 5 8410-2 #### [facility] CLIA [id number] [address] [place] [address] Platelet mean volume (Bld) [Entitic vol] 9.5 fL Normal 9.0-12.7 [facility] Comment on above: Order Comment: Speci men Type: BLOOD SPECIMEN Performed By: #### 5 8410-2 #### [facility] CLIA [id number] [address] [place] [address] Platelets (Bld) [#/Vol] 258 10*3/uL Normal 150-400 [facility] Comment on above: Order Comment: Speci men Type: BLOOD SPECIMEN Performed By: #### 5 8410-2 #### [facility] CLIA [id number] [address] [place] [address] RBC (Bld) [#/Vol] 4.62 10*6/uL Normal 3.90-5.20 [facility] Comment on above: Order Comment: Speci men Type: BLOOD SPECIMEN Performed By: #### 5 8410-2 #### [facility] CLIA [id number] [address] [place] [address] WBC (Bld) [#/Vol] 9.52 10*3/uL Normal 3.70-11.00 [facility] Comment on above: Order Comment: Speci men Type: BLOOD SPECIMEN Performed By: #### 5 8410-2 #### [facility] CLIA [id number] [address] [place] [address] CT CHEST WO IVCONon 09-05-[address] CHEST WO IVCON Final Report DATE OF EXAM: Sep 04 2020 9:38PM [facility] 0541 - CT CHEST WO IVCON / PROCEDURE REASON: Chest trauma, blunt Physician Interpretation EXAMINATION: CHEST CT WITHOUT CONTRAST CLINICAL HISTORY: Chest trauma, blunt Technique: Spiral CT acquisition of the chest from the thoracic inlet to the upper abdomen without contrast. MQ: CTCWO_6 CT Radiation dose: Integrated Dose-length product (DLP) for this visit = [address] Dose Reduction Employed: mAs-kVp adjusted based on patient size-age Comparison: Type of study and date/time RESULT: Limitations: None. Lines, tubes, and devices: None. Lung parenchyma and airways: No consolidation. No suspicious pulmonary nodule. The central airways are patent. Pleural space: No pleural effusion. No pleural thickening. Lower neck, lymph nodes, and mediastinum: The imaged thyroid gland is normal. No lymphadenopathy in the supraclavicular, axillary, mediastinal, or hilar regions. Small hiatal hernia. Somewhat patulous appearance of the esophagus. Heart, pericardium, and thoracic vessels: The thoracic aorta and main pulmonary artery are normal in caliber. The cardiac chambers are normal in size. Scattered calcified atherosclerosis of the coronary arteries and aorta. No pericardial effusion or thickening. Bones and soft tissues: Multiple Schmorl's nodes in the superior endplates of the lower thoracic spine, with mild chronic-appearing height loss. No acute fractures identified. Upper abdomen: No significant abnormality. Excreted contrast is noted in the bilateral kidneys. [facility] Nurse Practitioner (topogram) images: No additional findings. IMPRESSION: No acute process. Cottage Supervisor: DAVID Transcribe Date/Time: Sep 04 2020 9:39P Dictated by : JESENIA THOMAS MD This examination was interpreted and the report reviewed and electronically signed by: JESENIA THOMAS MD on Sep 04 2020 9:51PM EST Normal [facility] CT OUTSIDE CD DICOM IMPORT - NBNRon 09-04-2020 CT OUTSIDE CD DICOM IMPORT -NBNR Images were obtained outside of [facility] Normal [facility] Comprehensive metabolic 2000 panelon 09-04-2020 Albumin [Mass/Vol] 4.1 g/dL Normal 3.9-4.9 [facility] Comment on above: Order Comment: Speci men Type: BLOOD SPECIMEN Performed By: #### 1 4979-9, 73711-8 #### [facility] CLIA [id number] [address] [place] [address] ALP [Catalytic activity/Vol] 86 U/L Normal 34-123 [facility] Comment on above: Order Comment: Speci men Type: BLOOD SPECIMEN Performed By: #### 1 4979-9, 78147-5 #### [facility] CLIA [id number] [address] [place] [address] ALT With P-5'-P [Catalytic activity/Vol] 21 U/L Normal 7-38 [facility] Comment on above: Order Comment: Speci men Type: BLOOD SPECIMEN Performed By: #### 1 4979-9, 84638-8 #### [facility] CLIA [id number] [address] [place] [address] Anion gap [Moles/Vol] 11 mmol/L Normal 9-18 [facility] Comment on above: Order Comment: Speci men Type: BLOOD SPECIMEN Performed By: #### 1 4979-9, 78238-6 #### [facility] CLIA [id number] [address] [place] [address] AST With P-5'-P [Catalytic activity/Vol] 18 U/L Normal 13-35 [facility] Comment on above: Order Comment: Speci men Type: BLOOD SPECIMEN Performed By: #### 1 4979-9, 07514-7 #### [facility] CLIA [id number] [address] [place] [address] Bilirubin [Mass/Vol] 0.4 mg/dL Normal 0.2-1.3 [facility] Comment on above: Order Comment: Speci men Type: BLOOD SPECIMEN Performed By: #### 1 4979-9, 36729-6 #### [facility] CLIA [id number] [address] [place] [address] Calcium [Mass/Vol] 9.3 mg/dL Normal 8.5-10.2 [facility] Comment on above: Order Comment: Speci men Type: BLOOD SPECIMEN Performed By: #### 1 49702-15, 93895-7 #### [facility] CLIA [id number] [address] [place] [address] Chloride [Moles/Vol] 103 mmol/L Normal 97-105 [facility] Comment on above: Order Comment: Speci men Type: BLOOD SPECIMEN Performed By: #### 1 49702-15, 15027-5 #### [facility] CLIA [id number] [address] [place] [address] CO2 [Moles/Vol] 25 mmol/L Normal 22-30 [facility] Comment on above: Order Comment: Speci men Type: BLOOD SPECIMEN Performed By: #### 1 49702-15, 96904-9 #### [facility] CLIA [id number] [address] [place] [address] Creatinine [Mass/Vol] 0.95 mg/dL Normal 0.58-0.96 [facility] Comment on above: Order Comment: Speci men Type: BLOOD SPECIMEN Performed By: #### 1 4979, 91553-7 #### [facility] CLIA [id number] [address] [place] [address] GFR/1.73 sq M.predicted MDRD (S/P/Bld) [Vol rate/Area] mL/min/{1.73_m2} Normal [facility] Comment on above: Order Comment: Speci men Type: BLOOD SPECIMEN Result Comment: 59 eGFR (Estimated GFR) Units of measure: mL/min/1.73 meters squared eGFR is derived from the reexpressed MDRD Study equation using the following parameters: serum creatinine, age, gender and race. The creatinine assay has been calibrated to be traceable to IDMS. An eGFR <60 mL/min/1.73m2 for >3 months is consistent with chronic kidney disease. Refer to KDOQI guidelines for clinical interpretation. In patients with unstable renal function, e.g. those with acute kidney injury, the eGFR may not accurately reflect actual GFR. Performed By: #### 1 4979-9, 61050-0 #### [facility] CLIA [id number] [address] [place] [address] Glucose [Mass/Vol] 105 mg/dL High 74-99 [facility] Comment on above: Order Comment: Speci men Type: BLOOD SPECIMEN Result Comment: The [place] Diabetes Association (ADA) provides guidance for cutoff values for fasting glucose and random glucose. The ADA defines fasting as no caloric intake for at least 8 hours. Fasting plasma glucose results between 100 to 125 mg/dL indicate increased risk for diabetes (prediabetes). Fasting plasma glucose results greater than or equal to 126 mg/dL meet the criteria for diagnosis of diabetes. In the absence of unequivocal hyperglycemia, results should be confirmed by repeat testing. In a patient with classic symptoms of hyperglycemia or hyperglycemic crisis, random plasma glucose results greater than or equal to 200 mg/dL meet the criteria for diagnosis of diabetes. Reference: Standards of Medical Care in Diabetes 2016, [place] [employer]. Diabetes Care. 2016.39(Suppl 1). Performed By: #### 1 4979-9, 91874-8 #### [facility] CLIA [id number] [address] [place] [address] Potassium [Moles/Vol] 3.7 mmol/L Normal 3.7-5.1 [facility] Comment on above: Order Comment: Speci men Type: BLOOD SPECIMEN Performed By: #### 1 4979-9, 84024-3 #### [facility] CLIA [id number] [address] [place] [address] Protein [Mass/Vol] 6.4 g/dL Normal 6.3-8.0 [facility] Comment on above: Order Comment: Speci men Type: BLOOD SPECIMEN Performed By: #### 1 4979-9, 64253-6 #### [facility] CLIA [id number] [address] [place] [address] Sodium [Moles/Vol] 139 mmol/L Normal 136-144 [facility] Comment on above: Order Comment: Speci men Type: BLOOD SPECIMEN Performed By: #### 1 4979-9, 52622-2 #### [facility] CLIA [id number] [address] [place] [address] Urea nitrogen [Mass/Vol] 20 mg/dL Normal 7-21 [facility] Comment on above: Order Comment: Speci men Type: BLOOD SPECIMEN Performed By: #### 1 4979-9, 89542-1 #### [facility] CLIA [id number] [address] [place] [address] ED NOTEon 09-04-2020 ED NOTE HNO ID: [id number] Author: Juanita Rodriguez) JB Alexandre Service: ? Author Type: Registered Nurse Type: ED Notes Filed: 09/04/2020 9:36 PM Note Text: Bed: 05-ED Expected date: Expected time: Means of arrival: Comments: trauma Normal [facility] ED NOTE HNO ID: [id number] Author: Juanita Rodriguez) JB Alexnadre Service: ? Author Type: Registered Nurse Type: ED Notes Filed: 09/04/2020 9:21 PM Note Text: Bed: 05-ED Expected date: Expected time: Means of arrival: Comments: [place] transfer Normal [facility] ED PROV NOTEon 09-04-2020 ED PROV NOTE HNO ID: [id number] Author: Yoan Robles DO Service: Emergency Medicine Author Type: Physician Type: ED Provider Notes Filed: 09/04/2020 10:15 PM Note Text: ED Provider Note Patient Name: Emma Hines SERVICE DATE: 09/04/20 History No chief complaint on file. This is a 64-year-old female presenting as a trauma to after falling off her horse. She was initially evaluated at [place] and found to have 2 small subarachnoid hemorrhages. After falling off her horse, patient did not lose consciousness at that time. She was able to drive herself back home however when she arrived home she had a syncopal episode that she does not remember. Patient does not use blood thinners. She endorses left-sided hip pain. Patient had chest x-ray, trauma labs, CT C-spine done at [place] that were unremarkable. PAST MEDICAL HISTORY Diagnosis Date - ACL (anterior cruciate ligament) tear - Depression - Hearing loss - Hyperlipidemia - Hypertension - Skin cancer on her back PAST SURGICAL HISTORY Procedure Laterality Date - DANDC, DIAG AND/OR THERAPEUTIC Dilation AND curettage - KNEE ARTHROSCOPY 1999 Left - PAST SURGICAL HISTORY OF 12/2011 Incision and Drainage of right hand infection - REMOVAL GALLBLADDER 1991 - SKIN GRAFT HAND <20 SQ CM 01/2012 FAMILY HISTORY Problem Relation Age of Onset - Hypertension Mother - Heart Mother Irregular heart beat - Cancer Father lung - Hypertension Father Social History Tobacco Use - Smoking status: Never Smoker - Smokeless tobacco: Never Used Vaping Use - Vaping Use: Never used Substance and Sexual Activity - Alcohol use: Yes Comment: Very Rarely - Drug use: Never - Sexual activity: Not Currently Partners: Male ALLERGIES Allergen Reactions - Adhesive Tape (Sun* Rash - Penicillins Rash Review of Systems Unable to perform ROS: Acuity of condition Physical Exam BP 131/69 Pulse 75 Temp 98.2 Resp 18 SpO2 100% Physical Exam Vitals and nursing note reviewed. Constitutional: General: She is not in acute distress. Appearance: Normal appearance. She is not ill-appearing. HENT: Head: Normocephalic and atraumatic. Comments: Midface is stable. Right Ear: Tympanic membrane normal. Left Ear: Tympanic membrane normal. Ears: Comments: No hemotympanum Nose: Nose normal. Comments: No nasal septal hematoma Mouth/Throat: Mouth: Mucous membranes are moist. Pharynx: No oropharyngeal exudate or posterior oropharyngeal erythema. Comments: No malocclusion, no obvious dental injuries or bleeding in the mouth. Eyes: Extraocular Movements: Extraocular movements intact. Conjunctiva/sclera: Conjunctivae normal. Pupils: Pupils are equal, round, and reactive to light. Cardiovascular: Rate and Rhythm: Normal rate and regular rhythm. Pulses: Normal pulses. Heart sounds: Normal heart sounds. No murmur heard. No friction rub. No gallop. Pulmonary: Effort: Pulmonary effort is normal. No respiratory distress. Breath sounds: Normal breath sounds. No wheezing. Chest: Chest wall: No tenderness. Abdominal: General: Abdomen is flat. Bowel sounds are normal. There is no distension. Palpations: Abdomen is soft. Tenderness: There is no abdominal tenderness. There is no guarding. Musculoskeletal: General: Tenderness (Chest wall tenderness. Left hip tenderness to palpation) present. No deformity. Normal range of motion. Cervical back: Normal range of motion and neck supple. No tenderness. Skin: General: Skin is warm and dry. Findings: No bruising or rash. Neurological: General: No focal deficit present. Mental Status: She is alert and oriented to person, place, and time. Motor: No weakness. Psychiatric: Mood and Affect: Mood normal. Behavior: Behavior normal. Diagnostic Testing ED Labs Ordered and Reviewed - No data to display Procedures ED Course / Clinical Impression Clinical Impressions as of Sep 05 2139 SAH (subarachnoid hemorrhage) (HCC) COVID-19 test performed per [facility] [place] policy for suspected COVID community exposure. MDM / Disposition / Plan 64 year old female presents as a trauma level 2 after falling off her horse with syncopal episode and found to have 2 subarachnoid hemorrhages. On initial assessment patient was found non-toxic, no acute distress, afebrile and vitals hemodynamically stable. Airway intact. Lungs clear bilaterally. 2+ radial, femoral, pedal pulses. GCS 15, no gross motor or sensory deficits of extremities. Secondary survey documented in physical exam. Trauma labs and imaging per surgical team. Patient already known to have [address] brain. Patient given 1 g Keppra. Patient admitted to SICU for further evaluation and management. Patient admitted in stable condition. SIGNATURE: MD Brennan Hogan (Res) MD Tuan Resident 09/04/202157 Please see the attending note. The andres (more content not included)... Normal [facility] ED PROV NOTE HNO ID: [id number] Author: Yoan Robles DO Service: Emergency Medicine Author Type: Physician Type: ED Provider Notes Filed: 09/06/2020 11:10 PM Note Text: The patient was seen and evaluated with the resident physician. I performed a separate HANDP. Please see the resident's note for further details. I agree with the resident's assessment and plan. HPI: Patient presents to the ED as a transfer from hospital with a chief complaint of fall. She was diagnosed with a subarachnoid haemorrhage by CT scan of the head. CT scan of the abdomen and pelvis as well as neck were performed and were negative other than soft tissue injury. Chest x-ray showed no acute disease. She is complaining of headache, anterior chest pain, and left hip pain. She denies neck or back pain. She does complain of headache. Exam: Primary and secondary surveys were performed. Vital signs were obtained and are stable. She has tenderness to palpation over the anterior chest wall and left hip. The patient has an abdomen that soft. Her respirations are unlabored. GCS is 15. No TL spine tenderness, step-offs or deformities. No C-spine tenderness, step-offs or deformities. No obvious head trauma. Critical Care I spent a total of 35 minutes of critical care time in the evaluation and management of this patient. This was necessary to treat or prevent deterioration of the following condition(s):SAH, which the patient had and/or has a high probability of suddenly developing. The patient received Consultation by trauma surgery during the time that critical care was provided. Critical care time excludes separately billed procedures. DO Yoan Kimbrough DO 09/06/20 2310 Normal [facility] Ethanol SerPl-ncon 021 Ethanol [Mass/Vol] mg/dL Normal <11 [facility] Comment on above: Order Comment: Speci men Type: BLOOD SPECIMEN Performed By: #### 1 4979-9, 52249-5 #### [facility] CLIA [id number] [address] [place] [address] HIGH SENSITIVITY TROPONIN To n 09-04-2020 HIGH SENSITIVITY ALFONSO 7 ng/L Normal <12 [facility] Comment on above: Order Comment: Speci men Type: BLOOD SPECIMEN Result Comment: When assessing risk for acute coronary syndromes: In patients undergoing blood draw greater than or equal to 2 hours from symptom onset, with history of very low to moderate risk and non-ischemic ECG, an initial hs-Troponin T less than 12 ng/L AND a 1 hour delta hs-Troponin T less than 3 ng/L should be considered very low risk for 30 day MACE. Performed By: #### 1 4979-9, 06098-5 #### [id number] [place] [id number] HISTORY PHYSICALon HISTORY PHYSICAL HNO ID: [id number] Author: Charity Fenton Service: General Surgery Author Type: Resident Type: HANDP Filed: 09/05/2020 1:00 AM Note Text: Attestation signed by Yoan Parkinson at 09/22/2020 2:19 PM I was not able to personally see this patient. I personally reviewed the HANDP as well as any pertinent labs and imaging. The HPI and exam was discussed with the resident. I agree with the presented documentation and noted plan unless specifically noted. SIGNATURE: Yoan Parkinson MD PATIENT NAME: Emma Hines DATE: September 22, 2020 TIME: 2:19 PM Pager: [phone] TRAUMA SURGERY HANDP [facility] ARRIVAL DATE: September 04, 2020 ARRIVAL TIME: 21:36 CATEGORY: Level 2 INJURY DATE: September 04, 2020 INJURY TIME: approx 16:00 Subjective 64 year old female with a h/o hypothyroidism, HLD, HTN presents to ED via EMS s/p fall. GCS at Scene was 15. Pt reports that around approx 4pm she fell off of a horse. +LOC with unknown downtime. Later on after going about her normal day she had a syncopal episode and she was taken to the ED. She initially presented to [place], where a CT H/N/A/P was taken and she was found to have two areas of bleeding on the brain, so she was taken to [facility] for neurosurgical care. Pt currently denies nausea, vision changes, or other complaints. Currently AANDOx3 and maintaining her own airway without difficulty. HPI/CHIEF COMPLAINT: OTHER MECHANISMS: Fall from horse, distance of unknown feet BRIEF DESCRIPTION OF INJURIES: SAH x2 LAST FLUIDS/MEAL: unknown CODE STATUS: Not discussed ALLERGIES Allergen Reactions - Adhesive Tape (Sun* Rash - Penicillins Rash (Not in a hospital admission) DATE OF LAST TETANUS: unknown There is no immunization history on file for this patient. PAST MEDICAL HISTORY Diagnosis Date - ACL (anterior cruciate ligament) tear - Depression - Hearing loss - Hyperlipidemia - Hypertension - Skin cancer on her back PAST SURGICAL HISTORY Procedure Laterality Date - DANDC, DIAG AND/OR THERAPEUTIC Dilation AND curettage - KNEE ARTHROSCOPY 1999 Left - PAST SURGICAL HISTORY OF 12/2011 Incision and Drainage of right hand infection - REMOVAL GALLBLADDER 1991 - SKIN GRAFT HAND <20 SQ CM 01/2012 Social History Tobacco Use - Smoking status: Never Smoker - Smokeless tobacco: Never Used Vaping Use - Vaping Use: Never used Substance Use Topics - Alcohol use: Yes Comment: Very Rarely - Drug use: Never FAMILY HISTORY Problem Relation Age of Onset - Hypertension Mother - Heart Mother Irregular heart beat - Cancer Father lung - Hypertension Father ROS: Is the patient having any pain? Yes LOCATION: L hip pain Constitutional: Unable to obtain due to mental status or language barrier Eye/Ear/Nose: Unable to obtain due to mental status or language barrier Respiratory: Unable to obtain due to mental status or language barrier Cardiovascular: Unable to obtain due to mental status or language barrier GI/Liver/Biliary: Unable to obtain due to mental status or language barrier Genitourinary: Unable to obtain due to mental status or language barrier Psychiatric: Unable to obtain due to mental status or language barrier Neurologic: Unable to obtain due to mental status or language barrier Musculoskeletal: Unable to obtain due to mental status or language barrier Integument: Unable to obtain due to mental status or language barrier Endocrine: Unable to obtain due to mental status or language barrier Heme/Lymph: Unable to obtain due to mental status or language barrier Objective PRIMARY SURVEY AIRWAY: Patent BREATHING: Breath sounds equal CIRCULATION: PT/DP 2+, Radials 2+, Femoral 2+ DISABILITY: Eye: 4=Spontaneous Verbal: 5=Oriented and Converses Motor: 6=Obeys Commands Total GCS: 15=4 Resp Rate: 10 to 29=4 Syst BP: > than 89=4 REVISED TRAUMA SCORE: 12 EXPOSE / ENVIRONMENT: Warm Blankets PROCEDURES: Cervical Collar: Removed at prior ED SECONDARY SURVEY VITALS: BP 124/70 Pulse 77 Temp 36.8 ?C (98.2 ?F) Resp 16 SpO2 96% NEURO: Alert AND Oriented x 3, GCS 15, Cranial Nerves II-XII Intact, Moves All Extremities, Strength Symmetrical, No Sensory Deficits HEENT: Head: No lacerations or abrasions, no bony step offs, midface stable to palpation, Eyes: PERRL, conjunctiva/corneas without lesions, EOM intact, Ears: Canals without blood or CSF drainage, TMs clear, external ears without lacerations, Nose: Septum midline, no crepitus with motion, Throat: Oral mucosa without lacerations, teeth in place, tongue without lacerations NECK: No midline pain with palpation, No pain with active ROM, No lacerations/wounds, No JVD, Trachea midline RESPIRATORY: No abrasions or contusions, No crepitus, N (more content not included)... Normal [facility] Lipase SerPl-cCncon 09-05-19 21 Lipase [Catalytic activity/Vol] 34 U/L Normal 16-61 [facility] Comment on above: Order Comment: Dao espana Type: BLOOD SPECIMEN Performed By: #### 1 4979-9, 85732-2 #### [facility] CLIA [id number] [address] [place] [address] PT panel Coag (PPP)on 2020 INR Coag (PPP) [Relative time] 1.0 {INR} Normal 0.9-1.3 [facility] Comment on above: Order Comment: Dao espana Type: BLOOD SPECIMEN Result Comment: Yelena min K Antagonist (VKA) Therapeutic Range: INR 2 to 3 (Target INR of 2.5) Note: For patients treated with VKA drugs, such as warfarin, the [place] [employer] 2012 Guideline recommends a therapeutic INR range of 2 to 3 (target INR of 2.5). This recommendation includes high-risk patients with antiphospholipid syndrome with previous arterial or venous thromboembolism, current-generation mechanical or bioprosthetic aortic heart valve replacement. Note: Patients with mechanical aortic valve replacement and additional risk factors for thromboembolic events (atrial fibrillation, previous thromboembolism, LV dysfunction, hypercoagulable conditions) or an older generation mechanical AVR (i.e., ball in-Cage) or any mechanical MVR should have a INR therapeutic range of 2.5 to 3.5 (target INR of 3). Orville FAIRBANKS, et al. Chest 2012, 141:7S-47S Janina RA, et al. [facility] 2017, 70: 252-289 Performed By: #### 1 4979-9, 40432-3 #### [facility] CLIA [id number] [address] [place] [address] PT Coag (PPP) [Time] 10.5 s Normal 9.7-13.0 [facility] Comment on above: Order Comment: Speci men Type: BLOOD SPECIMEN Performed By: #### 1 4979-9, 99313-2 #### [facility] CLIA [id number] [address] [place] [address] SARS-CoV-2 RNA Resp Ql LAURIE+p robeon 09-04-2020 SARS-CoV-2 (COVID-19) RNA LAURIE+probe Ql (Resp) COVID 19 RESULT: SARS-CoV-2 (Agent of COVID-19) Not Detected by PCR. This test has been authorized by FDA under an Emergency Use Authorization (EUA) [facility] Comment on above: Performed By: #### 9 4500-6 ####[facility] [id number] [place] [address] TYPE AND SCREENon 09-04-2020 ABO O [facility] Comment on above: Order Comment: Speci men Type: BLOOD SPECIMEN Performed By: #### T SCR #### [facility] CLIA [id number] [address] [place] [address] HISTORICAL AB SCR STATUS Negative [facility] Comment on above: Order Comment: Speci men Type: BLOOD SPECIMEN Performed By: #### T SCR #### [facility] CLIA [id number] [address] [place] [address] Rh Nom (Bld) Positive [facility] Comment on above: Order Comment: Speci men Type: BLOOD SPECIMEN Performed By: #### T SCR #### [facility] CLIA [id number] [address] [place] [id number] TYPE AND SCREEN EXPIRATION 09/07/2020 23:59 Normal [facility] Comment on above: Order Comment: Speci men Type: BLOOD SPECIMEN Performed By: #### T SCR #### [facility] CLIA [id number] [address] [place] [id number] XR OUTSIDE CD DICOM IMPORT - NBNRon 09-04-2020 XR OUTSIDE CD DICOM IMPORT -NBNR Images were obtained outside of [facility] Normal [facility] aPTT PPPon 09-04-2020 aPTT Coag (PPP) [Time] 23.6 s Normal 23.0-32.4 [facility] Comment on above: Order Comment: Speci men Type: BLOOD SPECIMEN Performed By: #### 1 4979-9, 85038-1 #### [facility] CLIA [id number] [address] [place] [address] Initial Visit (Otolaryngolog y)on 06-24-2018 Initial Visit (Otolaryngology) Chief Complaint Sore Throat Visit For: Other sinus and sore throat problems History of Present Illness This 62-year-old female being seen today for an evaluation of her upper aerodigestive tract. She was hospitalized in April for head pressure and headaches and at that time a CT scan of the head was done showing no signs of sinusitis I will that was being questioned as a cause for her symptoms in May about 1 month later she developed some swelling in her pharyngeal area and palatal area which has dissipated. There was no confirmed diagnosis of a bacterial infection made. She does have irritation in her throat periodically along with symptoms of hoarseness. She has sense some postnasal discharge issues. She does have a known GI issue of reflux which is treated by to medications and for which she has had upper endoscopies done with dilatations. She's having no difficulties with hearing changes although she does wear bilateral hearing aids serviced elsewhere. There's been no difficulties with nosebleeds or purulent nasal discharge. Review of Systems all other systems have been reviewed and are negative for complaint. Past Medical History History of depression (V11.8) (Z86.59) History of gastroesophageal reflux (GERD) (V12.79) (Z87.19) History of hearing loss (V12.49) (Z86.69) History of high cholesterol (V12.29) (Z86.39) History of malignant neoplasm of skin (V10.83) (Z85.828) Surgical History History of Anterior cruciate ligament repair History of Hand surgery Family History Family history of deafness or hearing loss (V19.2) (Z82.2) Family history of hypertension (V17.49) (Z82.49) Family history of deafness or hearing loss (V19.2) (Z82.2) Family history of hypertension (V17.49) (Z82.49) Family history of malignant neoplasm (V16.9) (Z80.9) Social History Denies alcohol consumption (V49.89) (Z78.9) Never a smoker No caffeine use No illicit drug use Allergies Penicillins Recorded By: Alexus Robledo; 06/24/2018 2:21:03 PM Current Meds Cytomel 5 MCG Oral Tablet; Therapy: 24Jun2018 to Recorded Dispense: 0 Days ; #: Sufficient Tablet; Refill: 0; DOMONIQUE = N; Record; Last Updated By: Alexus Robledo; 06/24/2018 2:21:03 PM Lexapro 20 MG Oral Tablet; Therapy: 24Jun2018 to Recorded Dispense: 0 Days ; #: Sufficient Tablet; Refill: 0; DOMONIQUE = N; Record; Last Updated By: Alexus Robledo; 06/24/2018 2:21:03 PM Lipitor 10 MG Oral Tablet; Therapy: 24Jun2018 to Recorded Dispense: 0 Days ; #: Sufficient Tablet; Refill: 0; DOMONIQUE = N; Record; Last Updated By: Alexus Robledo; 06/24/2018 2:21:03 PM Nortriptyline HCl - 10 MG Oral Capsule; Therapy: 24Jun2018 to Recorded Dispense: 0 Days ; #: Sufficient Capsule; Refill: 0; DOMONIQUE = N; Record; Last Updated By: Alexus Robledo; 06/24/2018 2:21:03 PM Nortriptyline HCl - 25 MG Oral Capsule; Therapy: 24Jun2018 to Recorded Dispense: 0 Days ; #: Sufficient Capsule; Refill: 0; DOMONIQUE = N; Record; Last Updated By: Alexus Robledo; 06/24/2018 2:21:03 PM Pepcid 20 MG Oral Tablet; Therapy: 24Jun2018 to Recorded Dispense: 0 Days ; #: Sufficient Tablet; Refill: 0; DOMONIQUE = N; Record; Last Updated By: Alexus Robledo; 06/24/2018 2:21:03 PM Protonix 40 MG Oral Tablet Delayed Release; Therapy: 24Jun2018 to Recorded Dispense: 0 Days ; #: Sufficient Tablet; Refill: 0; DOMONIQUE = N; Record; Last Updated By: Alexus Robledo; 06/24/2018 2:21:03 PM Toprol XL 25 MG Oral Tablet Extended Release 24 Hour; Therapy: 24Jun2018 to Recorded Dispense: 0 Days ; #: Sufficient X 100 Tablet Pack; Refill: 0; DOMONIQUE = N; Record; Last Updated By: Alexus Robledo; 06/24/2018 2:21:03 PM Vitamin D3 5000 UNIT Oral Tablet; Therapy: 24Jun2018 to Recorded Dispense: 0 Days ; #: Sufficient Tablet; Refill: 0; DOMONIQUE = N; Record; Last Updated By: Alexus Robledo; 06/24/2018 2:21:03 PM Vitals Vital Signs Recorded: 24Jun2018 03:04PM Xdtecfcgndp23.6 F Heart Rate84 Utpkahrg871 Ciqqvlhka96 Height5 ft 3 in Snznij797 lb BMI Tjqfjvepjk76.2 BSA Calculated1.97 Physical Exam Examination: CONSTITUTIONAL: Alert, in no acute distress, normal pitch/clarity of voice, well-developed, well-nourished, cooperative. HEAD/FACE: Normocephalic, atraumatic, no tenderness over the sinuses, facial strength and movement symmetric. SKIN: Good turgor, no rashes, no suspicious lesions, in the head and neck. EYES: Both eyes have normal extraocular movements with no nystagmus, pupils are equal and reactive to light and accommodation, conjunctiva is clear. EARS: Both ears are negative for external skin abnormalities, external auditory canals are without lesions or signs of inflammation, tympanic membranes are intact and are of normal color and texture, no effusions are seen, light reflexes normal, no mastoid tenderness is noted to palpation, objective hearing is intact. NOSE: No external skin lesions are noted, nares are patent, septum is intact and noninflamed, nasal turbinates are normal in appearance, sinuses are nontender to palpation bilaterally, no internal lesions or polyps are noted, no discharge is noted. OROPHARYNX/ORAL CAVITY: Mucous membranes of the oropharynx and the oral cavity proper are without lesions or ulcerations, tongue mobility is normal and no lesions are noted, gingiva and alveolar mucosa is intact without lesions, oral mucosa is moist, muscular movement of the palate and gag reflex are normal. NASOPHARYNX: Mucous membranes are noninflamed and no secretions or lesions are noted. As per fiberoptic LARYNX: No mucosal inflammation or exudates are noted, arytenoids are normal in appearance and mobility, false vocal cords are without lesions as is the remainder of the supraglottic larynx, true vocal folds are mobile without inflammation or obstructions and no masses or lesions are noted in the endolarynx. As per fiberoptic NECK: No lymphadenopathy is palpated, neck is supple with full range of motion, thyroid is without swelling or tenderness, trachea is midline, no neck masses are noted. Lymphatics: No cervical adenopathy or supraclavicular adenopathy noted to palpation. HEART/VASCULAR: No jugular venous distention is noted, carotid pulsations are intact with a regular rate and rhythm noted, PULMONARY: Good air movement with normal inspiratory/expirator y effort is noted, no audible wheezing is appreciated. NEUROLOGIC: Alert and oriented, cranial nerves are grossly intact, gait is normal, sensation in the head and neck is intact, PSYCH: oriented to person, place and time, normal mood and affect. EXTREMITIES: No motor dysfunction of the upper and lower extremity is noted. LARYNGOSCOPY Indications: Subjective sore throats, nasal congestion with postnasal discharge Consent: The procedure was discussed including the possible risks and benefits and alternative treatments were discussed with verbal consent obtained. Procedure: Topical Ramon-Synephrine and lidocaine is applied as a decongestant and anesthetic nasally. A fiberoptic laryngoscope is inserted nasally and the upper aerodigestive tract is examined. Findings: Intranasally on the left-hand side there was a nasal septal deviation close approximation to the middle turbinate. No purulent nasal discharge was seen on that side. On the right there was no obstruction noted in the middle meatus and there was no obstruction was noted posteriorly the nose.. The nasopharynx was normal showing no signs of abnormalities to the mucous membranes and there was no obstruction to the eustachian tubes. Base of the tongue and vallecula were within normal limits as was the supraglottic larynx, lateral ingram of the oropharynx, and the hypopharyngeal mucosa. The endolarynx revealed normal vocal cord movements which were symmetric and no lesions were noted. There were no secretions pooling in the post cricoid region. Post procedure: The patient tolerated the procedure well without complications. Diagnoses/Problems Chronic nasal congestion (478.19) (R09.81) Deviated nasal septum (470) (J34.2) Post-nasal drainage (473.9) (R09.82) Gastroesophageal reflux disease without esophagitis (530.81) (K21.9) Orders Tobacco Use Screening; Status:Complete; Done: 24Jun2018 Perform:Not Applicable;Ordered; For:SocHx: Never a smoker; Ordered By:Alexus Robledo; Provider Impressions I discussed the clinical findings with the patient. Her symptoms are likely influenced by the known health issue that she has including GI reflux issues which can cause sore throats, common causes for hoarseness and at times swelling of mucus in the pharyngeal area. This would also account for strictures and tightness in the esophageal area which has required dilatations in the past. Nasal discharge can be influenced by irritation to the environment as well as contracted infection both viral and bacterial. She's had no documentation of a bacterial infection based upon the history provided. Nasal septal deviation and turbinate enlargement can account for increased resistance to breathing which can be influenced by medication such as beta blockers which she is on. Dryness in the throat on medications can also account for irritation in the throat and both her Lexapro and nortriptyline can be associated with symptoms of that. Nasal washes with saline be helpful in cleansing the nasal lining in controlling bacterial growth. Increasing free water intake due to the dryness in her throat is advised and she should follow up with her GI specialist in regards to her reflux issues. The patient will follow-up with their PCP for all other health care needs and for evaluation of any positive responses on the review of systems. Dictation is done through [employer] and misspelled words or phrases are possible. Signatures Electronically signed by : Matt Bullock MD; Jun 24 2018 5:57PM EST (Author) Normal [employer] Clinical Lists Update: Clini estefani Noteon 04-18-2017 Left ventricular Ejection fraction 60 % Invalid Interpretation Code [employer] [facility] Work Phone: [phone] Office Visiton 03-26-2017 Documentation of current medications (procedure) Done Invalid Interpretation Code [employer] Work Phone: [phone] Fall risk assessment No Invalid Interpretation Code [employer] Work Phone: [phone] Replaced Document: Mariluz Varma CG Observationson 03-26-2017 EKG QRS axis 17 deg Invalid Interpretation Code [employer] Work Phone: [phone] Interpretation Sinus Rhythm - Negative precordial T-waves. Low voltage -possible pulmonary disease. ABNORMAL Invalid Interpretation Code [employer] Work Phone: [phone] P [place] 15 deg Invalid Interpretation Code [employer] Work Phone: [phone] FL Interval 164 ms Invalid Interpretation Code [employer] Work Phone: [phone] Pulse (Heart Rate) 72 /min Invalid Interpretation Code [employer] Work Phone: [phone] QRS Duration 96 ms Invalid Interpretation Code [employer] Work Phone: [phone] QT Interval new path ms Invalid Interpretation Code [employer] Work Phone: [phone] QTc Norris 429 ms Invalid Interpretation Code [employer] Work Phone: [phone] T [place] 49 deg Invalid Interpretation Code [employer] Work Phone: [phone] 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 Normal [facility] Work Phone: [phone] FUNST FUNGUS STAIN No yeas t or mold observed. Normal [facility] Work Phone: [phone] Lab Report: BMPon 01-27-2012 Calcium 9.5 mg/dL Normal 8.5-10.1 [facility] Work Phone: [phone] Chloride 104 mmol/L Normal 98-107 [facility] Work Phone: [phone] Creatinine 0.9 mg/dL Normal 0.6-1.0 [facility] Work Phone: [phone] Glucose mass conc 91 mg/dL Normal 70-110 [facility] Work Phone: [phone] Potassium molar conc 4.2 mmol/L Normal 3.5-5.[address] [facility] Work Phone: [phone] Sodium 138 mmol/L Normal 136-145 [facility] Work Phone: [phone] Urea nitrogen 1 mg/dL Low 7-18 [facility] Work Phone: [phone] Lab Report: CBCon 01-27-2012 Erythrocytes (RBC) 4.55 10*6/uL Normal 4.2-5.[address] [facility] Work Phone: [phone] Hematocrit (HCT) 37.1 % Normal 37-47 [facility] Work Phone: [phone] Hemoglobin mass conc (Bld) 12.5 G.DL Normal 12.0-15.0 [facility] Work Phone: [phone] Platelets 250 10*3/mm3 Normal 150-450 [facility] Work Phone: [phone] WBC (Leukocytes) 5.7 10*3/uL Normal 4.4-11.0 [facility] Work Phone: [phone] Lab Report: PREALBon 012 Prealbumin 28.0 mg/dL Normal 20.0-40.0 [facility] Work Phone: [phone] Vital Signs Date Time Vital Sign Value Performing Clinician Faci lity 08-15-2022 13:15-0500 Body mass index (BMI) [Ratio] 37.8 kg/m2 Dr. Sosa Chandler Work Phone: [facility] 08-15-2022 13:15-0500 Body weight 90.[address] Sosa Chandler Work Phone: [facility] 08-15-2022 12:50-0500 Body height 154.[address] Sosa Chandler Work Phone: [facility] 08-15-2022 12:50-0500 Body temperature 97.4 [degF] Dr. Sosa Chandler Work Phone: [facility] 08-15-2022 12:50-0500 Diastolic blood pressure 75 mm[Hg] Dr. Sosa Chandler Work Phone: [facility] 08-15-2022 12:50-0500 Heart rate 76 /min Dr. Sosa Chandler Work Phone: [facility] 08-15-2022 12:50-0500 Respiratory rate 16 /min Dr. Sosa Chandler Work Phone: [facility] 08-15-2022 12:50-0500 SaO2% (BldA) [Mass fraction] 99 % Dr. Sosa Chandler Work Phone: [facility] 08-15-2022 12:50-0500 Systolic blood pressure 126 mm[Hg] Dr. Sosa Chandler Work Phone: [facility] 08-12-2022 05:25-0500 Body height 154.[address] Sosa Chandler Work Phone: [facility] 08-12-2022 05:25-0500 Body mass index (BMI) [Ratio] 40.4 kg/m2 Dr. Sosa Chandler Work Phone: [facility] 08-12-2022 05:25-0500 Body temperature 98.7 [degF] Dr. Sosa Chandler Work Phone: [facility] 08-12-2022 05:25-0500 Body weight 96.[address] Sosa Chandler Work Phone: [facility] 08-12-2022 05:25-0500 Diastolic blood pressure 71 mm[Hg] Dr. Sosa Chandler Work Phone: [facility] 08-12-2022 05:25-0500 Heart rate 96 /min Dr. Sosa Chandler Work Phone: [facility] 08-12-2022 05:25-0500 Respiratory rate 20 /min Dr. Sosa Chandler Work Phone: [facility] 08-12-2022 05:25-0500 SaO2% (BldA) [Mass fraction] 99 % Dr. Sosa Chandler Work Phone: [facility] 08-12-2022 05:25-0500 Systolic blood pressure 122 mm[Hg] Dr. Sosa Chandler Work Phone: [facility] 05-06-2022 13:13-0500 Body mass index (BMI) [Ratio] 38.9 kg/m2 Dr. Sosa Chandler Work Phone: [facility] 05-06-2022 13:13-0500 Body weight 96.[address] Sosa Chandler Work Phone: [facility] 05-06-2022 13:13-0500 Diastolic blood pressure 77 mm[Hg] Dr. Sosa Chandler Work Phone: [facility] 05-06-2022 13:13-0500 Heart rate 72 /min Dr. Sosa Chandler Work Phone: [facility] 05-06-2022 13:13-0500 Respiratory rate 18 /min Dr. Sosa Chandler Work Phone: [facility] 05-06-2022 13:13-0500 SaO2% (BldA) [Mass fraction] 94 % Dr. Sosa Chandler Work Phone: [facility] 05-06-2022 13:13-0500 Systolic blood pressure 126 mm[Hg] Dr. Sosa Chandler Work Phone: [facility] 03-22-2022 10:04-0400 Body height 157.[address] Sosa Chandler Work Phone: [facility] Work Phone: 03-22-2022 10:04-0400 Body mass index (BMI) [Ratio] 37 kg/m2 Dr. Sosa Chandler Work Phone: [facility] Work Phone: 03-22-2022 10:04-0400 Body weight 91.[address] Sosa Chandler Work Phone: [facility] Work Phone: 03-22-2022 10:04-0400 Diastolic blood pressure 78 mm[Hg] Dr. Sosa Chandler Work Phone: [facility] Work Phone: 03-22-2022 10:04-0400 Heart rate 76 /min Dr. Sosa Chandler Work Phone: [facility] Work Phone: 03-22-2022 10:04-0400 Respiratory rate 16 /min Dr. Sosa Chandler Work Phone: [facility] Work Phone: 03-22-2022 10:04-0400 Systolic blood pressure 120 mm[Hg] Dr. Sosa Chandler Work Phone: [facility] Work Phone: 03-01-2022 22:11-0400 Diastolic blood pressure 72 mm[Hg] [facility] Work Phone: 03-01-2022 22:11-0400 Heart rate 75 /min [facility] Work Phone: 03-01-2022 22:11-0400 Respiratory rate 18 /min [facility] Work Phone: 03-01-2022 22:11-0400 SaO2% (BldA) [Mass fraction] 94 % [facility] Work Phone: 03-01-2022 22:11-0400 Systolic blood pressure 144 mm[Hg] [facility] Work Phone: 03-01-2022 18:22-0400 Body height 157.48 cm [facility] Work Phone: 03-01-2022 18:22-0400 Body mass index (BMI) [Ratio] 37.3 kg/m2 [facility] Work Phone: 03-01-2022 18:22-0400 Body temperature 96.5 [degF] [facility] Work Phone: 03-01-2022 18:22-0400 Body weight 92.53 kg [facility] Work Phone: 10-31-2021 10:18-0400 Body height 157.48 cm [facility] Work Phone: 10-07-2021 15:32-0400 Body temperature 97.8 [degF] [facility] Work Phone: 10-07-2021 15:32-0400 Diastolic blood pressure 66 mm[Hg] [facility] Work Phone: 10-07-2021 15:32-0400 Heart rate 79 /min [facility] Work Phone: 10-07-2021 15:32-0400 Respiratory rate 18 /min [facility] Work Phone: 10-07-2021 15:32-0400 SaO2% (BldA) [Mass fraction] 99 % [facility] Work Phone: 10-07-2021 15:32-0400 Systolic blood pressure 139 mm[Hg] [facility] Work Phone: 10-07-2021 13:35-0400 Body height 157.48 cm [facility] Work Phone: 10-07-2021 13:35-0400 Body mass index (BMI) [Ratio] 37.5 kg/m2 [facility] Work Phone: 10-07-2021 13:35-0400 Body weight 92.98 kg [facility] Work Phone: 03-26-2017 09:45-0400 BMI (Body Mass Index) 31.92 kg/m2 [facility] Work Phone: 03-26-2017 09:45-0400 BP Diastolic 64 mm[Hg] [facility] Work Phone: 03-26-2017 09:45-0400 BP Systolic 110 mm[Hg] [facility] Work Phone: 03-26-2017 09:45-0400 Height 162.56 cm [facility] Work Phone: 03-26-2017 09:45-0400 Pulse (Heart Rate) 76 /min [facility] Work Phone: 03-26-2017 09:45-0400 Respiratory Rate 18 /min [facility] Work Phone: 03-26-2017 09:45-0400 Weight 84.37 kg [facility] Work Phone: 03-09-2012 08:37-0400 Body Temperature 96 [degF] [facility] Work Phone: 03-09-2012 08:37-0400 BSA (Body Surface Area) 1.95 m2 [facility] Work Phone: Encounters Encounter Date Encounter Type Care Provider Facility Start: 11-17-2024 ambulatory Nadira Cumberland Facility :[facility] Start: 11-09-2024 End: 11-09-2024 ambulatory Nadira Gasper Facility:[facility] Start: 11-08-2024 ambulatory Nadira Cumberland Facility :[facility] Start: 11-08-2024 End: 11-08-2024 ambulatory Nadira Cumberland Facility:[facility] Start: 10-13-2024 End: 10-13-2024 ambulatory Nadira Gasper Facility:[facility] Start: 09-09-2024 End: 09-09-2024 ambulatory Sosa Malys Facility:[facility] Start: 09-07-2024 End: 09-07-2024 ambulatory Sosa Malys Facility:[facility] Start: 08-23-2024 End: 08-23-2024 ambulatory Migue Flor Seese Facility:[facility] Start: 08-19-2024 End: 08-19-2024 ambulatory Beatriz Guan Facility:[facility] Start: 07-20-2024 End: 07-20-2024 ambulatory Nadira Cumberland Facility:[facility] Start: 07-13-2024 End: 07-13-2024 ambulatory Newton Granado Facility:[facility] Start: 06-15-2024 End: 06-15-2024 ambulatory Nurys Shaheed Facility:[facility] Start: 05-19-2024 End: 05-19-2024 ambulatory Migue L See Facility:[facility] Start: 04-14-2024 End: 04-14-2024 ambulatory Sosa Malys Facility:[facility] Start: 03-13-2024 End: 03-13-2024 ambulatory Luciana Nicolette Facility:[facility] Start: 02-26-2024 End: 02-26-2024 ambulatory Sosa Malys Facility:[facility] Start: 01-20-2024 End: 01-20-2024 ambulatory Sosa Malys Facility:[facility] Start: 11-19-2023 ambulatory Sosa Malys [facility] Start: 11-18-2023 ambulatory Sosa Malys [facility] Start: 11-18-2023 End: 11-18-2023 ambulatory Sosa Malys Facility:[facility] Start: 08-14-2023 End: 08-15-2023 ambulatory SOSA A MALYS Facility:[facility] Start: 08-14-2023 End: 08-14-2023 Subsequent hospital visit by physician Deonna Thomason [facility] Cat Scan Start: 09-20-2022 End: 09-20-[address] [facility] Work Phone: Start: 09-20-2022 End: 09-20-[address] [facility] Start: 09-05-2022 Telephone encounter Joan Thopmson MD Work Phone: OB/Gynecology Comment on above: UTI Start: 09-03-2022 End: 09-03-2022 ambulatory SOSA CHANDLER Facility:[facility] Start: 09-03-2022 End: 09-03-2022 Subsequent hospital visit by physician [facility] 2 Work Phone: Radiology Comment on above: Pelvic pressure in f emale [R10.2] Start: 09-03-2022 End: 09-04-2022 ambulatory SOSA CHANDLER Facility:[facility] Start: 08-15-2022 End: 08-15-2022 Emergency department patient visit Dr. Sosa Chandler Work Phone: [facility]-Emergency Department Start: 08-12-2022 End: 08-12-2022 Emergency department patient visit Dr. Sosa Chandler Work Phone: [facility]-Emergency Department Start: 05-06-2022 End: 05-06-[address] Sosa Chandler Work Phone: [facility] Start: 04-04-2022 Non-patient / Non-visit Dr. Sosa Chandler Work Phone: [facility] Start: 04-04-2022 End: 04-04-[address] Sosa Chandler Work Phone: [facility] Work Phone: Start: 04-04-2022 End: 04-04-[address] Sosa Chandler Work Phone: [facility]-Cardiovascular Services Start: 03-22-2022 End: 03-22-[address] Sosa Chandler Work Phone: [facility] Start: 03-01-2022 End: 03-01-2022 Emergency department patient visit [facility]-Emergency Department Start: 01-29-2022 End: 01-29-[address] [facility] Work Phone: Start: 01-29-2022 End: 01-29-[address] [facility]-Pulmonary Services/Neurology Start: 01-25-2022 End: 01-25-[address] [facility]-Cat Scan, WC Start: 01-23-2022 End: 01-23-[address] [facility]-Laboratory, Joshua Start: 10-31-2021 End: 10-31-[address] [facility]-Outpatient Bone Densitometry Start: 10-07-2021 End: 10-07-2021 Emergency department patient visit [facility]-Emergency Department Start: 11-20-2019 End: 11-20-2019 Patient encounter procedure [facility] Start: 06-24-2018 Patient encounter procedure Matt Bullock Facility:[id number] Procedures Date Procedure Procedure Detail Performing Clinician Start: 09-03-2022 Us transvaginal Joan Thompson MD Work Phone: Start: 04-04-2022 Radionuclide imaging of perfusion of myocardium under exercise stress Dr. Sosa Chandler Work Phone: Start: 03-01-2022 Plain chest X-ray Start: 01-25-2022 CT of head without contrast Start: 10-31-2021 Dual energy X-ray absorptiometry Start: 10-31-2021 Screening mammography Start: 09-04-2020 Antibody screen Comment on above: Order Comment: Speci men Type: BLOOD SPECIMEN Performed By: #### T SCR #### [facility] CLIA [id number] [address] [place] [address] Start: 03-26-2017 End: 03-26-2017 Ecg routine ecg w/least 12 lds w/i&r Baldo Posadas MD Start: 03-26-2017 End: 04-18-2017 Echocardiography Baldo Posadas MD Start: 03-26-2017 End: 04-09-2017 Nuclear stress test -Mey Posadas MD Plan of Treatment Date Care Activity Detail Author Start: 11-22-2024 COLORECTAL CANCER SCREENING COLORECTAL CANCER SCREENING [facility] Start: 11-22-2024 SIGMOIDOSCOPY SIGMOIDOSCOPY [facility] Start: 11-02-2023 Mammography Mammogram Screening [facility] Start: 11-02-2023 Screening for malignant neoplasm of breast Mammogram Screening [facility] Start: 09-07-2023 DIABETES SCREEN DIABETES SCREEN [facility] Start: 09-07-2023 Diabetes Screening Diabetes Screening [facility] Start: 06-09-2023 Advance Directive Discussion Advance Directive Discussion [facility] Start: 06-09-2023 Depression Assessment Depression Assessment [facility] Start: 02-07-2023 Influenza vaccination Influenza Vaccine (#1) [facility] Start: 06-09-2022 ADVANCE DIRECTIVE DISCUSSION ADVANCE DIRECTIVE DISCUSSION [facility] Start: 06-09-2022 DEPRESSION ASSESSMENT DEPRESSION ASSESSMENT [facility] Start: 03-01-[address] [facility] Work Phone: Start: 02-07-2022 Influenza vaccination INFLUENZA (#1) [facility] Start: 10-19-2019 BONE DENSITY BONE DENSITY [facility] Start: 10-19-2019 Bone Density Screening Bone Density Screening [facility] Start: 10-19-2019 Pneumococcal Vaccine: 65+ (1 - PCV) Pneumococcal Vaccine: 65+ (1 - PCV) [facility] Start: 10-19-2019 Pneumococcal Vaccine: 65+ (1 of 1 - PCV) Pneumococcal Vaccine: 65+ (1 of 1 - PCV) [facility] Start: 10-19-2019 PNEUMOCOCCAL: 65+ (1 - PCV) PNEUMOCOCCAL: 65+ (1 - PCV) [facility] Start: 10-19-2019 Screening for osteoporosis Bone Density Screening [facility] Start: 03-26-2017 End: 03-26-2017 Echocardiography Echocardiogram (complete) [facility] Work Phone: Start: 03-26-2017 End: 03-26-2017 Nuclear stress test -Mey Nuclear stress test -Mey [facility] Work Phone: Start: 11-27-2016 End: 11-27-2016 Physical Therapy General Physical Therapy [facility], [address] [place] [address], [id number] [facility] Work Phone: Start: 11-15-2016 End: 11-15-2016 Radex spine cervical 4 or 5 views X-Ray, Spine, Cervical AP, Lat and Obliques 4-5 views [facility] Work Phone: Start: 11-01-2016 End: 11-01-2016 Mri any jt upper extremity w/o contrast matrl MRI Joint Upper Extremity [facility] Work Phone: Start: 11-01-2016 End: 11-01-2016 Radex hand minimum 3 views X-Ray, Hand [facility] Work Phone: Start: 10-08-2016 End: 10-08-2016 Radex hand minimum 3 views X-Ray, Hand [facility] Work Phone: Start: 10-08-2016 End: 10-08-2016 Radex shoulder complete minimum 2 views X-Ray, Shoulder [facility] Work Phone: Start: 08-28-2016 End: 08-28-2016 Occupational Therapy General Occupational Therapy [facility], [address] [place] [address], [phone] [facility] Work Phone: Start: 08-23-2016 End: 08-23-2016 Radex hand minimum 3 views X-Ray, Hand [facility] Work Phone: Start: 08-01-2016 End: 08-01-2016 Radex hand minimum 3 views X-Ray, Hand [facility] Work Phone: Start: 07-25-2016 End: 07-25-2016 Radex hand minimum 3 views X-Ray, [facility] Work Phone: Start: 2014 RSV Vaccine (1 - 1-dose 60+ series) RSV Vaccine (1 - 1-dose 60+ series) [facility] Start: 05-03-2014 End: 05-03-2014 Mri any jt lower extrem w/o contrast matrl MRI Joint Lower Extremity [facility] Work Phone: Start: 2004 SHINGRIX VACCINE (1 of 2) SHINGRIX VACCINE (1 of 2) [facility] Start: 10-19-1999 COLOGUARD (FIT-DNA) COLOGUARD (FIT-DNA) [facility] Start: 10-19-1999 Colonoscopy COLONOSCOPY [facility] Start: 10-19-[address] COLONOGRAPHY [facility] Start: 10-19-1999 FECAL OCCULT BLOOD FECAL OCCULT BLOOD [facility] Start: 10-19-1999 Lipid 1996 panel - Serum or Plasma Lipid Screening [facility] Start: 10-19-1999 Lipid panel Lipid Screening [facility] Start: 10-19-1999 LIPID SCREEN LIPID SCREEN [facility] Start: 10-19-1999 Screening for malignant neoplasm of colon [facility] Start: 1994 Mammography MAMMOGRAM [facility] Start: 1973 Urine microalbumin profile [facility] Start: 1972 HEPATITIS C SCREENING HEPATITIS C SCREENING [facility] Start: 1972 Hepatitis C screening Hepatitis C Screening [facility] Start: [birth year]20-1956 COVID-19 VACCINE (#1) COVID-19 VACCINE (#1) [facility] Patient Education [facility] Work Phone: Patient referral [facility] Work Phone: Immunizations Immunization Date Immunization Notes Care Provider Aj bernard 05-22-2019 influenza virus vaccine, unspecified formulation [facility] Work Phone: [facility] 02-18-2018 Influenza virus vaccine [facility] Payers Date Payer Category Payer Self-pay [id number] 2020 Medicare AETNA MEDICARE A ETNA MEDICARE PPO [id number] 2020-Present [phone] [address] [place] [address] PPO [id number] 2020 Private Health Insurance [facility] [id number] 2006 Unknown [id number] 1955 Unknown [id number] 56 1954 Unknown [id number] 2.16.840.1.821585.3.579.2.9 00 Unknown [id number] Unknown [id number] Unknown [id number] 2.16.840.1.339136.3.579.2.4 62 Unknown [id number] 2.16.840.1.769911.3.579.2.4 62 Unknown [id number] 2.16.840.1.762485.3.579.2.4 62 Unknown [id number] 2.16.840.1.116274.3.579.2.4 62 Unknown [id number] 2.16.840.1.535838.3.579.2.4 62 Unknown [id number] 2.16.840.1.684018.3.579.2.4 62 Unknown [id number] 2.16.840.1.029799.3.579.2.4 62 Unknown [id number] 2.16.840.1.578163.3.579.2.4 62 Unknown [id number] 2.16.840.1.653220.3.579.2.4 62 Unknown [id number] 2.16.840.1.298927.3.579.2.4 62 Unknown [id number] 2.16.840.1.450649.3.579.2.4 62 Unknown [id number] 2.16.840.1.473040.3.579.2.4 62 Unknown [id number] 2.16.840.1.719620.3.579.2.4 62 Unknown [id number] 2.16.840.1.227080.3.579.2.4 62 Unknown [id number] 2.16.840.1.668325.3.579.2.4 62 Unknown [id number] 2.16.840.1.045229.3.579.2.4 62 Unknown [id number] 2.16.840.1.027315.3.579.2.4 62 Unknown [id number] 2.16.840.1.539222.3.579.2.4 62 Unknown [id number] 2.16.840.1.448081.3.579.2.4 62 Unknown [id number] 2.16.840.1.772274.3.579.2.4 62 Social History Date Type Detail Facility Start: 10-07-2021 End: 08-15-2022 Tobacco smoking status CAIS Unknown if ever smoked [facility] Start: 03-19-[address] [facility] Start: 03-19-[address] [facility] Start: 05-04-2018 Non-sm[address] [facility] Start: 1955 Sex Assigned At Female [facility] Start: 09-03-2022 Tobacco smoking stat us CAIS Never smoked tobacco [facility] Start: 09-03-2022 Tobacco use and exposure Smokeless tobacco non-user [facility] Start: 09-03-2022 Alcohol intake Current drinke r of alcohol (finding) [facility] Start: 02-18-2012 Alcohol Comment Very Rarely [facility] Start: 1955 Sex Assigned At Not on file [facility] Start: 09-03-2022 History of Social function [facility] Start: 09-03-2022 Tobacco use panel [facility] National Score (1-100), lower number is lower risk 57 [facility] Mental Status Date Assessment Result Facility 03-01-2022 Cognitive function Voice/Name [facility] Work Phone: Clinical Notes 09-05-2020 to 08-14-2023 Iram Patel, RT(R) - 08/14/2023 2:00 PM ESTTelephone Encounter - Beatriz Fenton RN - 09/05/2022 2:34 PM EDTTelephone Encounter - Ruthie Rasheed RN - 09/05/2022 1:36 PM EDT Note Date & Type Note Facility 08-14-2023 Note HNO ID: [id number] Author: IRAM PATEL RT(R) Service: ? Author Type: [place] Type: Progress Notes Filed: 08/14/2023 15:35 Note Text: Radiology Service Progress Note DATE OF SERVICE: August 14, 2023 TIME: 3:35 PM PATIENT IDENTITY VERIFICATION COMPLETED USING TWO (2) STANDARD IDENTIFIERS: Name and Date of confirmed by patient verbally. FALL SCREENING: Has the patient had 2 falls in the last year or 1 fall with injury or currently using an Ambulatory Assistive Device (Walker, Cane, Wheelchair, Crutches, etc.)? No PATIENT GENDER DATA: Female. status: : No status: NO. PATIENT RELEVANT IMPLANT DATA REVIEWED: Yes PATIENT PRESENTS WITH AN IMPLANTABLE OR ATTACHED STICKER OPERATOR: No ALLERGIES: Reviewed and unchanged CONTRAST ALLERGY: NO. EXAM: CT -CONTRAST INDUCED NEPHROPATHY RISK FACTORS: Patient age > 60 years CREATININE: Creatinine Date Value Ref Range Status 08/14/2023 1.02 (H) 0.58 - 0.96 mg/dL Final 09/06/2020 0.86 0.58 - 0.96 mg/dL Final 09/05/2020 0.88 0.58 - 0.96 mg/dL Final Estimated Glomerular Filtration Rate Date Value Ref Range Status 08/14/2023 60 >=60 mL/min/1.73m? Final Comment: Estimated Glomerular Filtration Rate (eGFR) is calculated using the 2020 CKD-EPI creatinine equation. This equation utilizes serum creatinine, sex, and age as parameters. The creatinine assay has traceable calibration to isotope dilution-mass spectrometry. Refer to KDIGO guidelines for clinical interpretation. In patients with unstable renal function, e.g. those with acute kidney injury, the eGFR may not accurately reflect actual GFR. eGFR- Date Value Ref Range Status 09/06/2020 >60 Final P.O.C.T. RESULTS: POC done: Yes, See Lab Tab August 14, 2023 TREATMENT: N/A PERIPHERAL IV DATA: Ambulatory: A peripheral IV was started in the Left antecubital site with a Angio cath: 22 gauge. RADIOLOGY DEPARTMENT: CT; Exam(s) Completed: Pelvis SIGNATURE: RT Karyn(R) PATIENT NAME: Emma Hines DATE: August 14, 2023 TIME: 3:35 PM [facility] 08-14-2023 History of Presen t illness Narrative Radiology Service Progress Note DATE OF SERVICE: August 14, 2023 TIME: 3:35 PM PATIENT IDENTITY VERIFICATION COMPLETED USING TWO (2) STANDARD IDENTIFIERS: Name and Date of confirmed by patient verbally. FALL SCREENING: Has the patient had 2 falls in the last year or 1 fall with injury or currently using an Ambulatory Assistive Device (Walker, Cane, Wheelchair, Crutches, etc.)? No PATIENT GENDER DATA: Female. status: : No status: NO. PATIENT RELEVANT IMPLANT DATA REVIEWED: Yes PATIENT PRESENTS WITH AN IMPLANTABLE OR ATTACHED STICKER OPERATOR: No ALLERGIES: Reviewed and unchanged CONTRAST ALLERGY: NO. EXAM: CT -CONTRAST INDUCED NEPHROPATHY RISK FACTORS: Patient age > 60 years CREATININE: Creatinine Date Value Ref Range Status 08/14/2023 1.02 (H) 0.58 - 0.96 mg/dL Final 09/06/2020 0.86 0.58 - 0.96 mg/dL Final 09/05/2020 0.88 0.58 - 0.96 mg/dL Final Estimated Glomerular Filtration Rate Date Value Ref Range Status 08/14/2023 60 >=60 mL/min/1.73m Final Comment: Estimated Glomerular Filtration Rate (eGFR) is calculated using the 2020 CKD-EPI creatinine equation. This equation utilizes serum creatinine, sex, and age as parameters. The creatinine assay has traceable calibration to isotope dilution-mass spectrometry. Refer to KDIGO guidelines for clinical interpretation. In patients with unstable renal function, e.g. those with acute kidney injury, the eGFR may not accurately reflect actual GFR. eGFR- Date Value Ref Range Status 09/06/2020 >60 Final P.O.C.T. RESULTS: POC done: Yes, See Lab Tab August 14, 2023 TREATMENT: N/A PERIPHERAL IV DATA: Ambulatory: A peripheral IV was started in the Left antecubital site with a Angio cath: 22 gauge. RADIOLOGY DEPARTMENT: CT; Exam(s) Completed: Pelvis SIGNATURE: RT Karyn(R) PATIENT NAME: Emma Hines DATE: August 14, 2023 TIME: 3:35 PM documented in this encounter [facility] 09-05-2022 Miscellaneous Notes Formattin g of this note might be different from the original. Patient notified and voiced understanding of below information and instructions. Beatriz Fenton RN Left message for patient to call office. Ruthie Rasheed RN Ok- will try Augmentin however if she has any rash, swelling needs to stop medication immediately. Pt needs to have benadryl on hand. Patient notified. She said she had a mild rash with PCN years ago. She can't remember if she ever had Augmentin or amoxicillin though. Pharmacy correct. Ruthie Rasheed RN [place] count low but patient symptomatic for UTI- Augmentin best for this strain of strep- says she is allergic to PCN is she really allergic or has she had Augmentin before and done ok? If she can't have PCN then I will give a cephalosporin with flagyl. Please let me know so I can order. documented in this encounter [facility] 09-03-2022 Note HNO ID: [id number] Author: Alexandra Swift RDMS Service: ? Author Type: Materials Management Supervisor Type: Progress Notes Filed: 09/03/2022 2:53 PM Note Text: Radiology Service Progress Note PATIENT NAME: Emma Hines DATE OF SERVICE: September 03, 2022 TIME: 2:53 PM PATIENT IDENTITY VERIFICATION COMPLETED USING TWO (2) IDENTIFIERS: Name and Date of confirmed by patient verbally. FALL SCREENING: Has the patient had 2 falls in the last year or 1 fall with injury or currently using an Ambulatory Assistive Device (Walker, Cane, Wheelchair, Crutches, etc.)? No PATIENT GENDER DATA: Female. status: : No status: NO. PATIENT RELEVANT IMPLANT DATA REVIEWED: Not Applicable RADIOLOGY DEPARTMENT: Ultrasound PERIPHERAL IV DATA: Not applicable SIGNED BY: Alexandra Swift RDMS RVT September 03, 2022 2:53 PM [facility] 09-03-2022 History of Presen t illness Narrative Radiology Service Progress Note PATIENT NAME: Emma Hines DATE OF SERVICE: September 03, 2022 TIME: 2:53 PM PATIENT IDENTITY VERIFICATION COMPLETED USING TWO (2) IDENTIFIERS: Name and Date of confirmed by patient verbally. FALL SCREENING: Has the patient had 2 falls in the last year or 1 fall with injury or currently using an Ambulatory Assistive Device (Walker, Cane, Wheelchair, Crutches, etc.)? No PATIENT GENDER DATA: Female. status: : No status: NO. PATIENT RELEVANT IMPLANT DATA REVIEWED: Not Applicable RADIOLOGY DEPARTMENT: Ultrasound PERIPHERAL IV DATA: Not applicable SIGNED BY: Alexandra Swift RDMS RVT September 03, 2022 2:53 PM documented in this encounter [facility] 09-03-2022 Note HNO ID: [id number] Author: Joan Thompson MD Service: ? Author Type: Physician Type: Progress Notes Filed: 09/03/2022 12:23 PM Note Text: Layer Up offered: Patient declines. Emma Hines is a 66 year old female who presents for concerns regarding left axillary pain as well as pressure sensation in the bladder or uterus. Patient denies any dysuria changes with her urinary habits or bowel habits. She denies a bulge or anything hanging from the vagina. She is not experiencing any pain with intercourse, bleeding, abnormal discharge. She states at times she does have an odor but nothing that is significant. Denies any changes with her breasts including no skin changes, no nipple discharge no masses. She did have a cardiac work-up. She states that she does experience some heartburn and wonders if that is what it is. She is under a lot of stress at home as her was diagnosed with dementia. Patient offers no other concerns at this time. OB History T0 L1 SAB0 IAB0 Ectopic0 Multiple0 Live Births0 Perinatal Specialist History LMP: Postmenopausal Age at Menarche: Age at First : Age at Menopause: Perinatal Specialist History Comments: Sexual Activity: Not Currently; Male Contraception: No contraception data on record PAST MEDICAL HISTORY Diagnosis Date ACL (anterior cruciate ligament) tear Brain bleed (HCC) 08/2020 horse accident Depression Hearing loss Hyperlipidemia Hypertension Skin cancer on her back PAST SURGICAL HISTORY Procedure Laterality Date CHOLECYSTECTOMY 1991 DILATION AND CURETTAGE DXAND/THER NONOBSTETRIC Dilation AND curettage KNEE ARTHROSCOPY 2000 Left PAST SURGICAL HISTORY OF 12/2011 Incision and Drainage of right hand infection SKIN GRAFT HAND <20 SQ CM 01/2012 FAMILY HISTORY Problem Relation Age of Onset Hypertension Mother Heart Mother Irregular heart beat Cancer Father lung Hypertension Father Social History Tobacco Use Smoking status: Never Smokeless tobacco: Never Vaping Use Vaping Use: Never used Substance Use Topics Alcohol use: Yes Comment: Very Rarely Drug use: Never Current Outpatient Medications Medication Sig BABY ASPIRIN ORAL Take by mouth. acetaminophen (TYLENOL) 500 mg tablet Take 2 tablets by mouth every 6 hours as needed. MAX: 3000mg per 24 hours ondansetron orally disintegrating (ZOFRAN ODT) 4 mg disintegrating tablet Take 4 mg by mouth every 8 hours as needed for Nausea/Vomiting. atorvastatin (LIPITOR) 10 mg tablet Take 10 mg by mouth once daily. cyanocobalamin, vitamin B-12, 5,000 mcg cap Take 1 capsule by mouth every morning. levothyroxine (SYNTHROID) 50 mcg tablet Take 50 mcg by mouth once daily. pantoprazole DR (PROTONIX) 40 mg tablet Take 40 mg by mouth once daily. liothyronine (CYTOMEL) 5 mcg tablet Take 5 mcg by mouth twice daily. nortriptyline 25 mg capsule Take 1 capsule by mouth daily at bedtime. nortriptyline 10 mg capsule Take 1 capsule by mouth daily at bedtime. Cholecalciferol, Vitamin D3, 5,000 unit cap Take 5,000 Units by mouth every evening. famotidine 20 mg tablet Take 40 mg by mouth daily at bedtime. metoprolol succinate XL, long acting, 25 mg 24 hr tablet Take 1 tablet by mouth once daily. No current facility-administered medications for this visit. Allergies As of Date: 09/03/2022 Allergen Noted Reaction ADHESIVE TAPE (ROSINS) 02/18/2012 Rash PENICILLINS 02/18/2012 Rash Fully Assessed 09/03/2022 REVIEW OF SYSTEMS Abdomen: no pain Bladder: pressure but no dysuria . Breast: see HPI . Expanded ROS: GENERAL: Negative for significant weight loss, fever Allergies and current medication updated:Yes EXAM: BP 120/76 Wt 209 lb 14.4 oz (95.2kg) GENERAL: pleasant, female in no apparent distress HEENT: Normocephalic and atraumatic NECK: Supple, full range of motion, no adenopathy, and thyroid normal DERMATOLOGY: Normal, without lesions, non-icteric, and non-hirsute BREAST: soft, symmetric, no dominant mass, normal nipple-areolar complex, no lymphadenopathy, no nipple discharge, and mild tenderness bilaterally. ABDOMEN: soft, non-tender, and no masses PELVIC: external genitalia normal, normal Bartholin's glands, urethra, [place]'s glands, no vulvar lesions, no cervical lesions, good vaginal support, physiologic discharge present, normal appearing perineal body and perianal region BIMANUAL: uterus normal size, shape and consistency, no adnexal masses, and mild tenderness NEURO: alert and oriented x3,exam grossly non-focal EXTREMITIES: normal ASSESSMENT AND PLAN: Encounter Diagnosis ICD-10-CM 1. Pelvic pressure in female R10.2 US FEMALE PELVIS TRANSVAG 2. Sensation of pressure in bladder area R39.89 US FEMALE PELVIS TRANSVAG URINE CULTURE 3. Left axillary pain M79.622 4. We reviewed causes of left axillary pain. I do not feel anything concerning on exam today. Her last agreement was done at [facility] (more content not included)... [facility] 08-15-2022 Discharge summary Note Date/Time August 15, 2022 1:23pm [facility] Medical Records Department [address] [place] [address] Emergency Department Summary 08/15/22 MR#: [id number] Acct: [id number] Name: EMMA HINES Rep #:[id number] : 1955 66 From: Monroe Underwood MD PCP: Dr. Sosa Chandler, DO Status:REG ER Location: ED HPI History of Present Illness Chief Complaint: Diarrhea Narrative Narrative: Patient presents with diarrhea, lightheadedness. She was seen here few days agoand felt much better after IV fluids but diarrhea continued and she now feels dehydrated again. She feels lightheaded and somewhat weak. Nausea and vomitinghave significantly improved she has no abdominal pain. [facility] Medical History Anemia Depression Hiatal hernia History of depression History of left heart catheterization (LHC) (~08/13/07) Hx of familial combined hyperlipidemia Impingement syndrome of right shoulder Left knee pain Left leg pain Low back pain Right shoulder pain Severe headache Shoulder pain Sinusitis, acute SIRS (systemic inflammatory response syndrome) Skin cancer Viral syndrome Home Medications atorvastatin 10 mg tablet (Lipitor) 10 mg PO QHS 12/28/13 [History Last Taken Unknown] escitalopram oxalate 20 mg tablet (Lexapro) 20 mg PO DAILY 12/28/13 [History Last Taken Unknown] metoprolol succinate 25 mg tablet,extended release 24 hr 25 mg PO DAILY 12/28/13[History Last Taken Unknown] levothyroxine 50 mcg tablet 50 mg PO DAILY 05/07/19 [History Last Taken Unknown] lorazepam 0.5 mg tablet 0.5 mg PO DAILY PRN Anxiety 09/01/20 [History Last Taken Unknown] aspirin 81 mg chewable tablet 81 mg PO DAILY #1 TAB 03/22/22 [Rx Last Taken Unknown] famotidine 20 mg tablet (Pepcid) 20 mg PO QHS 03/22/22 [History Last Taken Unknown] liothyronine 5 mcg tablet 5 mcg PO BID 03/22/22 [History Last Taken Unknown] nortriptyline 10 mg capsule 10 mg PO QHS 03/22/22 [History Last Taken Unknown] nortriptyline 25 mg capsule 25 mg PO QHS 03/22/22 [History Last Taken Unknown] pantoprazole 40 mg tablet,delayed release 40 mg PO DAILY 03/22/22 [History Last Taken Unknown] ondansetron 4 mg disintegrating tablet 4 mg PO Q8H PRN PRN Nausea #10 tabs 08/12/22 [Rx Last Taken Unknown] potassium chloride 10 mEq tablet,extended release 10 meq PO TID #9 tabs 08/12/22[Rx Last Taken Unknown] promethazine 25 mg tablet 25 mg PO Q6H PRN PRN Nausea #10 TABLETS 08/12/22 [Rx Last Taken Unknown] Allergy/AdvReac Type Severity Reaction Status Date / Time adhesive tape Allergy Rash Verified 08/15/22 12:52 Penicillins Allergy Hives Verified 08/15/22 12:52 Family History Father Cancer Lung/Skin Mother CVA (cerebral vascular accident) Uncle Myocardial infarction Surgical History History of cholecystectomy History of hand surgery History of repair of ACL Social History Smoking Status: Never smoker alcohol intake: current details: Rare substance use type: does not use caffeine: No ROS ROS ED ROS Narrative Past medical history: Reviewed Medications: Reviewed Social history: Noncontributory Review of systems: All systems negative except as indicated General: No fever. She feels lightheaded ENT: No upper airway congestion, normal voice Neck: No neck pain Cardiovascular: No chest pain Respiratory: No shortness of breath or cough Gastrointestinal: No abdominal pain. Diarrhea as in HPI Genitourinary: No dysuria Musculoskeletal: Denies myalgias no difficulty with ambulation Skin: No rash Neurological: No memory loss, confusion or any focal weakness EXAM Physical Exam Narrative Exam Narrative: Physical exam General: Well nourished, Well developed, No Acute Distress Head: Normocephalic, Atraumatic Eyes: Conjunctiva not pale ENT: Dry mucous membranes Neck: Supple, Nontender, No lymphadenopathy Cardiovascular: Regular rate, Regular rhythm Respiratory: No distress, CTA bilaterally Abdomen: Soft, Nontender, Nondistended Back: Nontender, Normal Inspection. Negative for: CVA tenderness Extremities: Nontender, No edema Skin: Normal color, No rash Neurological: Alert, Normal Strength, Normal Sensation Psychological: Normal affect Const Vital Signs: 08/15/22 12:50 Temperature 97.4 F L Temperature Source Temporal Pulse Rate 76 Respiratory Rate 16 Blood Pressure 126/75 H Blood Pressure Mean 92 Pulse Ox 99 Oxygen Delivery Method Room Air MDM MDM MDM Narrative Medical decision making narrative: A. Problems addressed Patient presents with diarrhea and dehydration, she likely has gastroenteritis, this is going around especially the norovirus. She is found to be slightly dehydrated again and IV fluids were given. She is significantly improved. I thought about other intra-abdominal pathologies like colitis diverticulitis and/or appendicitis but at this time she has no abdominal pain therefore I do not believe that she needs a CAT scan. She will be discharged in stable condition told to stay hydrated. She has some slight azotemia but it is not significantly changed from a few days ago. B. Amount and/or complexity of the data 1. CBC CMP were ordered and interpreted by me I discussed with who was in the room C. Risk of complications and/or morbidity Differential diagnosis: See above Lab Data Labs: Laboratory Results - last 24 hr 08/15/22 08/15/22 13:33 13:33 WBC 7.1 RBC 5.12 Hgb 13.7 Hct 42.9 MCV 83.8 MCH 26.8 L MCHC 31.9 L RDW Std Deviation 42.8 RDW Coeff of Cristo 14.0 Plt Count 259 MPV 8.9 Immature Gran % (Auto) 0.400 Neut % (Auto) 66.6 Lymph % (Auto) 18.7 L Johnson % (Auto) 12.1 H Eos % (Auto) 1.8 Baso % (Auto) 0.4 Absolute Neuts (auto) 4.8 Absolute Lymphs (auto) 1.33 Nucleated RBC % 0 Sodium 137 Potassium 3.6 Chloride 108 H Carbon Dioxide 21.0 Anion Gap 8 BUN 24 H Creatinine 1.04 H Estim Creat Clear Calc 39.61 Est GFR (MDRD) Af Amer 68 Est GFR (MDRD) Non-Af 56 L BUN/Creatinine Ratio 23.1 H Glucose 108 H Calcium 9.3 Total Bilirubin 0.40 AST 38 H ALT 100 H Alkaline Phosphatase 114 Total Protein 7.1 Albumin 3.3 Globulin 3.8 Albumin/Globulin Ratio 0.9 Discharge Plan Triage Chief Complaint: Diarrhea ED Provider: Monroe Underwood Dx/Rx/DC Orders Clinical Impression: Acute dehydration, Diarrhea Instructions: ED Dehydration (Adult) Prescriptions: No Action pantoprazole 40 mg tablet,delayed release (DR/EC) 40 mg PO DAILY aspirin 81 mg tablet,chewable 81 mg PO DAILY Qty: 1 0RF atorvastatin [Lipitor] 10 MG tablet 10 mg PO QHS metoprolol succinate 25 MG tablet 25 mg PO DAILY escitalopram oxalate [Lexapro] 20 MG tablet 20 mg PO DAILY famotidine [Pepcid] 20 mg tablet 20 mg PO QHS levothyroxine 50 MCG tablet 50 mg PO DAILY Label Comments: TAKE 1 TABLET BY MOUTH ONCE DAILY lorazepam 0.5 MG tablet 0.5 mg PO DAILY PRN (Reason: Anxiety) nortriptyline 10 mg capsule 10 mg PO QHS promethazine [promethazine] 25 mg tablet 25 mg PO Q6H PRN PRN (Reason: Nausea) Qty: 10 0RF ondansetron [ondansetron] 4 mg tablet,disintegrating 4 mg PO Q8H PRN PRN (Reason: Nausea) Qty: 10 0RF potassium chloride 10 mEq tablet extended release 10 meq PO TID Qty: 9 0RF nortriptyline 25 mg capsule 25 mg PO QHS Label Comments: liothyronine 5 mcg tablet 5 mcg PO BID Primary Care Provider: Sosa Chandler Referrals: Sosa Chandler DO [Primary Care Provider] - 3-5 Days Disposition Disposition: Home, Self Care What to do if you have Problems For any increased pain, shortness of breath, bleeding, nausea or vomiting, chestpain, or any unexpected problems, contact your Primary Care Provider. Call [facility] ([phone]) or report to the closest Emergency Room. Call 911 if necessary. 08/15/22 1425 <Electronically signed by Monroe Underwood MD> Cosigner Signature (if applicable): CC: Dr. Sosa Chandler DO ~ Signed [facility] Work Phone: 1(440) 495-556804-13-2021 NoteHNO ID: [id number] Author: Anahi Rdoriguez Service: ? Author Type: Physician Type: Progress Notes Filed: 09/19/2020 10:09 AM Note Text: NEUROSURGERY FOLLOW UP OFFICE NOTE Anahi Rodriguez MD Date of visit: September 19, 2020 Patient Name: Ms.Sharon Leanne Hines Date of : 1955 Current Age: [age] year old Sex: female MRN/E# [id number] Last Office Visit: 09/11/2020 Chief Complaint: Patient presents with: Established Patient: hospital discharge SUBJECTIVE: Ms. Hines presents to the office today for a hospital follow up. She was seen at [facility] on 09/04/2020 following a fall from a horse. She sustained small subdural hematomas and scattered subarachnoid hemorrhages. On 09/06/2020 she was cleared for discharge and was asked to follow up in 2 weeks with a repeat CT scan, prompting her visit today. Today she states overall she is doing well and notes only mild intermittent headaches. She denies changes in vision, balance, or coordination. She presents for evaluation and plan of care. Symptoms:mild headaches, improving PREVIOUS CONSERVATIVE TREATMENTS: None PREVIOUS SURGERY: None PAIN EVALUATION 09/19/2020 0942 Pain Level: 2 Pain Location: Head Description: Aching Duration Units: Weeks Frequency: Intermittent Intervention: Medication PAST MEDICAL HISTORY Diagnosis Date - ACL (anterior cruciate ligament) tear - Depression - Hearing loss - Hyperlipidemia - Hypertension - Skin cancer on her back PAST SURGICAL HISTORY Procedure Laterality Date - DANDC, DIAG AND/OR THERAPEUTIC Dilation AND curettage - KNEE ARTHROSCOPY 1999 Left - PAST SURGICAL HISTORY OF 12/2011 Incision and Drainage of right hand infection - REMOVAL GALLBLADDER 1991 - SKIN GRAFT HAND <20 SQ CM 01/2012 FAMILY HISTORY Problem Relation Age of Onset - Hypertension Mother - Heart Mother Irregular heart beat - Cancer Father lung - Hypertension Father ALLERGIES Allergen Reactions - Adhesive Tape (Sun* Rash - Penicillins Rash Current Outpatient Medications Medication Sig Dispense Refill - acetaminophen (TYLENOL) 500 mg tablet Take 2 tablets by mouth every 6 hours as needed. MAX: 3000mg per 24 hours - ondansetron orally disintegrating (ZOFRAN ODT) 4 mg disintegrating tablet Take 4 mg by mouth every 8 hours as needed for Nausea/Vomiting. - atorvastatin (LIPITOR) 10 mg tablet Take 10 mg by mouth once daily. - cyanocobalamin, vitamin B-12, 5,000 mcg cap Take 1 capsule by mouth every morning. - levothyroxine (SYNTHROID) 50 mcg tablet Take 50 mcg by mouth once daily. - pantoprazole DR (PROTONIX) 40 mg tablet Take 40 mg by mouth once daily. - liothyronine (CYTOMEL) 5 mcg tablet Take 5 mcg by mouth twice daily. - nortriptyline 25 mg capsule Take 1 capsule by mouth daily at bedtime. 0 - nortriptyline 10 mg capsule Take 1 capsule by mouth daily at bedtime. 0 - Cholecalciferol, Vitamin D3, 5,000 unit cap Take 5,000 Units by mouth every evening. 0 - famotidine 20 mg tablet Take 40 mg by mouth daily at bedtime. 0 - metoprolol succinate XL, long acting, 25 mg 24 hr tablet Take 1 tablet by mouth once daily. 0 - levETIRAcetam (KEPPRA) 1,000 mg tablet Take 1 tablet by mouth twice daily for 11 doses. (Patient not taking: Reported on 09/19/2020 ) 11 tablet 0 No current facility-administered medications for this visit. REVIEW OF SYSTEMS Review of Systems Constitutional: Negative for chills, diaphoresis and fever. HENT: Negative for congestion, ear pain and sinus pressure. Eyes: Negative for discharge and redness. Respiratory: Negative for cough, shortness of breath and wheezing. Cardiovascular: Positive for palpitations. Negative for chest pain and leg swelling. Gastrointestinal: Negative for constipation, diarrhea and nausea. Endocrine: Negative for cold intolerance and heat intolerance. Genitourinary: Negative for difficulty urinating, frequency and urgency. Musculoskeletal: Positive for gait problem. Negative for back pain and neck pain. Skin: Negative for rash and wound. Allergic/Immunologic: Negative for environmental allergies and food allergies. Neurological: Positive for weakness and headaches. Negative for dizziness and numbness. Hematological: Does not bruise/bleed easily. Psychiatric/Behavioral: Negative for agitation. The patient is not nervous/anxious. OBJECTIVE: BP 116/72 Pulse 72 Temp 97.3 Resp 16 Ht 5' 3 (1.60m) Wt 206 lb (93.4kg) SpO2 96% BMI 36.50 kg/(m2). Physical Exam HENT: Head: Normocephalic and atraumatic. Right Ear: External ear normal. Left Ear: External ear normal. Eyes: General: Lids are normal. Extraocular Movements: Extraocular movements intact. Conjunctiva/sclera: Conjunctivae normal. Pupils: Pupils are equal, round, and reactive to light. Pulmonary: Effort: Pulmonary effort is normal. Musculoskeletal: General: Normal range of motion. Cervical back: Normal range of m (more content not included)...[facility]03-31-2021 NoteHNO ID: [id number] Author: Ken Melchor Service: Neurosurgery Author Type: Nurse Practitioner Type: Progress Notes Filed: 09/06/2020 2:07 PM Note Text: Neurosurgery Progress Note SERVICE DATE: 09/06/2020 SUBJECTIVE: NAJET. Endorses slight MEI, states she hasn't received medication for it. Denies n/v, vision changes, dizziness. OBJECTIVE: Vitals: Temp (24hrs), Av.7 ?C (98.1 ?F), Min:36.3 ?C (97.3 ?F), Max:37 ?C (98.6 ?F) BP 118/73 Pulse 74 Temp 36.8 ?C (98.2 ?F) (Oral) Resp 18 Ht 160 cm (5' 3) Wt 93.5 kg (206 lb 1.6 oz) SpO2 98% BMI 36.51 kg/m? O2 Therapy: Room Air IANDO: Date 09/05/20 07 - 09/06/20 0659 09/06/20 07 - 09/07/20 0659 Shift 1201-1221 4566-8594 0420-3471 24 Hour Total 5089-5222 1904-8967 0733-1466 24 Hour Total INTAKE PO 360 360 PO 360 360 IV 850 850 Volume (mL) (NaCl 0.9% iv infusion) 750 750 Volume (mL) (levETIRAcetam iv piggyback 1,000 mg in NaCl (iso-osmotic) 100 mL (KEPPRA)) 100 100 Shift Total 080 733 7371 OUTPUT Urine 478 004 4656 400 400 Void (ml) 362 207 0873 400 400 Urine Not Saved. 1 x 1 x Shift Total 199 580 0792 400 400 Weight (kg) 91.7 91.7 93.5 93.5 93.5 93.5 93.5 93.5 Medications: Current Facility-Administered Medications Medication Dose Route Frequency - liothyronine 5 mcg tab(s) (CYTOMEL) 5 mcg ORAL BID - LORazepam 0.25 mg tab(s) (ATIVAN) 0.25 mg ORAL BID PRN - levETIRAcetam 1,000 mg tab(s) (KEPPRA) 1,000 mg ORAL BID - pantoprazole DR 40 mg tab(s) (PROTONIX) 40 mg ORAL DAILY - nortriptyline (PAMELOR) cap(s) 35 mg 35 mg ORAL AT BEDTIME - Cholecalciferol (Vitamin D3) 5,000 Units cap(s) 5,000 Units ORAL DAILY - acetaminophen 1,000 mg tab(s) (TYLENOL) 1,000 mg ORAL q 6 H PRN - oxyCODONE IR 5 mg tab(s) (ROXICODONE) 5 mg ORAL q 4 H PRN - metoprolol succinate ER 25 mg tab(s) (TOPROL XL) 25 mg ORAL DAILY - levothyroxine 50 mcg tab(s) (SYNTHROID) 50 mcg ORAL DAILY - sodium chloride 0.9 % (flush) 3-5 mL (BD POSIFLUSH) 3-5 mL INTRAVENOUS q 12 H - ondansetron 4 mg tab(s) (ZOFRAN) 4 mg ORAL q 6 H PRN Or - ondansetron (PF) 4 mg injection (ZOFRAN) 4 mg INTRAVENOUS q 6 H PRN - docusate sodium 100 mg cap(s) (COLACE) 100 mg ORAL BID PRN Labs: Recent Labs 09/06/20 0258 09/05/20 0438 09/04/20 2131 09/04/20 2131 NA 139 138 < > 139 K 4.2 3.2* < > 3.7 CHLOR 109* 106* < > 103 CO2 24 23 < > 25 BUN 15 20 < > 20 CREAT 0.86 0.88 < > 0.95 GLUC 92 91 < > 105* ANION 6* 9 < > 11 CA 8.1* 8.7 < > 9.3 MG -- 1.8 -- -- ALB -- -- -- 4.1 AST -- -- -- 18 ALT -- -- -- 21 ALKPHOS -- -- -- 86 TBILI -- -- -- 0.4 WBC 4.56 5.86 < > 9.52 HB 10.7* 11.6 < > 12.7 HCT 33.7* 35.3* < > 38.7 PLT 220 232 < > 258 INR -- -- -- 1.0 < > = values in this interval not displayed. Exam: GENERAL: No distress, Alert NEURO: AAOx3, PERRL, CN II-XII intact. Speech clear and fluent. Sensation intact to light touch in UE/LE bilaterally. Strength 5/5 in UE/LE bilaterally. HEENT: normocephalic, atraumatic LUNGS: Unlabored breathing CARDIAC: Regular rate and rhythm as above. Pulses 2+ radial, DP, PT. Cap refill <2s. ABDOMEN: Soft, non-tender, non-distended EXTREMITIES: LI, No deformities, No edema SKIN: Skin color, texture, turgor normal, No rashes or lesions ASSESSMENT AND PLAN: Active Hospital Problems Diagnosis Date Noted - Fall from horse 09/06/2020 - SAH (subarachnoid hemorrhage) ([facility]) 09/06/2020 - SDH (subdural hematoma) ([facility]) 09/06/2020 - Contusion of buttock 09/06/2020 - ICH (intracerebral hemorrhage) ([facility]) 09/04/2020 Emma Hines is a 64 year old female who presented with traumatic SAH s/p fall off horse. - Neuro as above - Neuro checks per protocol - Continue Keppra x7d - HOB >30degrees - SBP goal <160 - No chemical DVT ppx at this time. SCDs ok Patient is stable for d/c from neurosurgery perspective. Will follow up with Dr. Rodriguez in 2 weeks with repeat CTB. Appointment requested. SIGNATURE: Ken Melchor APRN.CNP PATIENT NAME: Emma Hines DATE: September 06, 2020 TIME: 12:27 PM Pager: [phone] NoteHNO ID: [id number] Author: Milton Aaron (Pa) Service: General Surgery Author Type: Physician Recovery Rn Type: Progress Notes Filed: 09/06/2020 9:47 AM Note Text: Trauma Surgery Progress Note SERVICE DATE: 09/06/2020 Trauma Service Pager: For questions or concerns Mon-Fri 6a-5p please page [phone]. After 5pm and on Weekends and Holidays, please page [phone] if in ICU or [phone] if on RNF. SUBJECTIVE: NAEON. Patient awake upon my presentation this morning. Minimal MEI. Denies visual or auditory changes, numbness, tingling or weakness of the arms or legs. Tolerating diet without complications. Able to mobilize with assistance to the restroom. She complains of occasional left hip, left chest wall and sternal pain with movement. Denies SOB or palpitations. Otherwise, no other focal concerns. OBJECTIVE: Vitals: Temp (24hrs), Av.7 ?C (98.1 ?F), Min:36.3 ?C (97.3 ?F), Max:37 ?C (98.6 ?F) BP 118/73 Pulse 74 Temp 36.8 ?C (98.2 ?F) (Oral) Resp 18 Ht 160 cm (5' 3) Wt 93.5 kg (206 lb 1.6 oz) SpO2 98% BMI 36.51 kg/m? O2 Therapy: Room Air IANDO: Date 09/05/20 07 - 09/06/20 0659 09/06/20 07 - 09/07/20 0659 Shift 2527-3574 0114-5417 2788-3707 24 Hour Total 9143-9585 9781-3991 7498-5931 24 Hour Total INTAKE PO 360 360 PO 360 360 IV 850 850 Volume (mL) (NaCl 0.9% iv infusion) 750 750 Volume (mL) (levETIRAcetam iv piggyback 1,000 mg in NaCl (iso-osmotic) 100 mL (KEPPRA)) 100 100 Shift Total 144 253 2383 OUTPUT Urine 173 430 3261 400 400 Void (ml) 545 258 0561 400 400 Urine Not Saved. 1 x 1 x Shift Total 807 945 2237 400 400 Weight (kg) 91.7 91.7 93.5 93.5 93.5 93.5 93.5 93.5 MEDICATIONS Current Facility-Administered Medications Medication Dose Route Frequency - liothyronine 5 mcg tab(s) (CYTOMEL) 5 mcg ORAL BID - levETIRAcetam 1,000 mg tab(s) (KEPPRA) 1,000 mg ORAL BID - pantoprazole DR 40 mg tab(s) (PROTONIX) 40 mg ORAL DAILY - nortriptyline (PAMELOR) cap(s) 35 mg 35 mg ORAL AT BEDTIME - Cholecalciferol (Vitamin D3) 5,000 Units cap(s) 5,000 Units ORAL DAILY - acetaminophen 1,000 mg tab(s) (TYLENOL) 1,000 mg ORAL q 6 H PRN - oxyCODONE IR 5 mg tab(s) (ROXICODONE) 5 mg ORAL q 4 H PRN - metoprolol succinate ER 25 mg tab(s) (TOPROL XL) 25 mg ORAL DAILY - levothyroxine 50 mcg tab(s) (SYNTHROID) 50 mcg ORAL DAILY - sodium chloride 0.9 % (flush) 3-5 mL (BD POSIFLUSH) 3-5 mL INTRAVENOUS q 12 H - ondansetron 4 mg tab(s) (ZOFRAN) 4 mg ORAL q 6 H PRN Or - ondansetron (PF) 4 mg injection (ZOFRAN) 4 mg INTRAVENOUS q 6 H PRN - docusate sodium 100 mg cap(s) (COLACE) 100 mg ORAL BID PRN Labs: Recent Labs 09/06/20 0258 09/05/20 0438 09/04/20 2131 09/04/201 NA 139 138 < > 139 K 4.2 3.2* < > 3.7 CHLOR 109* 106* < > 103 CO2 24 23 < > 25 BUN 15 20 < > 20 CREAT 0.86 0.88 < > 0.95 GLUC 92 91 < > 105* ANION 6* 9 < > 11 CA 8.1* 8.7 < > 9.3 MG -- 1.8 -- -- ALB -- -- -- 4.1 AST -- -- -- 18 ALT -- -- -- 21 ALKPHOS -- -- -- 86 TBILI -- -- -- 0.4 WBC 4.56 5.86 < > 9.52 HB 10.7* 11.6 < > 12.7 HCT 33.7* 35.3* < > 38.7 PLT 220 232 < > 258 INR -- -- -- 1.0 < > = values in this interval not displayed. PHYSICAL EXAM: Genl: Appears age appropriate. No acute distress. Resting comfortably. Head/Face: Normocephalic. Atraumatic. Eyes: EOMI. Sclera not icteric, not injected Resp: Lung sounds are clear bilat. No wheezes. No rales. Breathing is non-labored on RA @97%. CVS: RRR as above; 2+ pulses at RA, DP, PT bilat. GI: Abdomen is soft, non-tender, not distended. Bowel sounds normoactive. No peritonitis. MSK: Extremities without clubbing, cyanosis, edema. Normal ROM x 4. Skin: Warm and dry. Not jaundiced. Neuro: AANDOx3. Strength and sensation grossly intact in extremities x 4. LI. GCS15. Psych: Normal mood. Normal affect. Appropriate insight into current situation. ASSESSMENT AND PLAN: Active Hospital Problems Diagnosis Date Noted - Fall from horse 09/06/2020 - SAH (subarachnoid hemorrhage) ([facility]) 09/06/2020 - SDH (subdural hematoma) ([facility]) 09/06/2020 - Contusion of buttock 09/06/2020 - ICH (intracerebral hemorrhage) ([facility]) 09/04/2020 64 year old female s/p fall from horse on 09/04/2020 Imaging performed: 1. 09/04/2020 - CT HAP, CXR (performed at [facility]) 2. 09/04/2020 - CT C-spine 3. 09/05/2020 - Repeat CT Brain Traumatic Injuries: 1. Bilateral SDH 2. R temporal SAH 3. Left buttock contusion Operations/Procedures: 1. None Care Plan: 1. SAH, SDH 1. Neurosurgery consulted 2. Repeat CT Brain completed 09/05/2020 stable/improved 3. Neuro checks 4. Continue Keppra x 7 days 5. Goal SBP < 160 6. Hold chemo ppx 2. Left buttock contusion 1. Symptomatic management 2. Pain control 3. Mobilize 3. Continue home medications 4. Mobilize/PT/OT 5. BUSINESS RELATIONS MANAGER consult for cognitive evaluation 6. Current diet order: DIET REGULAR 7. Pain regimen: PRN Tylenol, Oxycodone 8. Bowel regimen: Colace 9. (more content not included)...[facility]03-30-2021 NoteHNO ID: [id number] Author: Nava Mendes (Pharmacist) Service: Pharmacy Author Type: Pharmacist Type: Plan of Care Filed: 09/05/2020 3:04 PM Note Text: Summary: admission med rec MEDICATION HISTORY AND MEDICATION RECONCILIATION Patient Name:Chelo Hines : 1955 Source of history:Patient (spouse present), Pharmacy records: [facility], [facility] (old pharmacy - [phone]) and [facility] Medication Nonadherence Identified: No barriers noted The above information represents the best possible medication history: Yes Reconciliation completed? Yes All ADMINISTRATIVE SUPPORT CLERK medications addressed by LIP Additional comments: Med hx obtained via sources listed above. Patient denied any other rx/otc/herbal products. - per [facility], last filled liothyronone 5mcg 2 tab QAM on 08/13, but patient reports taking 5 mcg BID; reported that meds were transferred to [facility] - patient reports taking famotidine 20mg 2 tab qhs (not 1 tab bid), pantoprazole 40mg/QAM Gufjg-nd-Geybrcxym Medication List Adjustments: Medication Regimen Changes: - atorvastatin 10mg, not 20mg, per [facility] - famotidine 20mg 2 tab qhs, not 1 tab bid, per patient Medications Added: - b12 5000mcg/day, per patient - zofran 4mg ODT, last filled 09/04 #20 7-day per [facility] Medications Removed: n/a Short-Term Medications: n/a Further Clarification Required: n/a Patient is a 30 day readmission: No Patient Interested in Bedside Delivery: unknown Time Spent Reviewing Patient's Medications: 30 minutes Allergies: ALLERGIES Allergen Reactions - Adhesive Tape (Sun* Rash - Penicillins Rash Preferred Pharmacy: [facility] [employer] [facility] [address] [place] [address] [id number] [facility] [address] [facility] [phone] Current ADMINISTRATIVE SUPPORT CLERK Medications: Prior to Admission medications as of 09/05/20 1458 Medication Sig Last Dose Taking ondansetron orally disintegrating (ZOFRAN ODT) 4 mg disintegrating tablet Take 4 mg by mouth every 8 hours as needed for Nausea/Vomiting. Yes atorvastatin (LIPITOR) 10 mg tablet Take 10 mg by mouth once daily. Yes cyanocobalamin, vitamin B-12, 5,000 mcg cap Take 1 capsule by mouth every morning. Yes levothyroxine (SYNTHROID) 50 mcg tablet Take 50 mcg by mouth once daily. Yes pantoprazole DR (PROTONIX) 40 mg tablet Take 40 mg by mouth once daily. Yes liothyronine (CYTOMEL) 5 mcg tablet Take 5 mcg by mouth twice daily. Yes nortriptyline 25 mg capsule Take 1 capsule by mouth daily at bedtime. Yes nortriptyline 10 mg capsule Take 1 capsule by mouth daily at bedtime. Yes Cholecalciferol, Vitamin D3, 5,000 unit cap Take 5,000 Units by mouth every evening. Yes famotidine 20 mg tablet Take 40 mg by mouth daily at bedtime. Yes metoprolol succinate XL, long acting, 25 mg 24 hr tablet Take 1 tablet by mouth once daily. Yes NAVA MENDES, PHARMACIST September 05, 2020 2:59 [facility]03-30-2021 NoteHNO ID: [id number] Author: Ken Melchor Service: Neurosurgery Author Type: Nurse Practitioner Type: Progress Notes Filed: 09/05/2020 12:12 PM Note Text: Neurosurgery Progress Note SERVICE DATE: 09/05/2020 SUBJECTIVE: Endorses mild MEI. Denies vision changes, dizziness, n/v. States she had a brief episode of blurry vision at [facility] which resolved spontaneously. C/o soreness to sternum and L hip. OBJECTIVE: Vitals: Temp (24hrs), Av.9 ?C (98.4 ?F), Min:36.8 ?C (98.2 ?F), Max:36.9 ?C (98.5 ?F) BP 110/73 Pulse 69 Temp 36.9 ?C (98.5 ?F) (Temporal) Resp 15 SpO2 96% O2 Therapy: Nasal Cannula IANDO: Date 09/04/20699 - 09/05/20 0609/05/20699 - 09/06/20 0659 Shift 8692-5688 7115-1399 4431-9340 24 Hour Total 6812-1006 7719-8603 9519-7298 24 Hour Total INTAKE Shift Total OUTPUT Urine Urine Not Saved. 1 x 1 x Shift Total Weight (kg) Medications: Current Facility-Administered Medications Medication Dose Route Frequency - oxyCODONE IR 5-10 mg tab(s) (ROXICODONE) 5-10 mg ORAL q 4 H PRN - NaCl 0.9% iv infusion 75 mL/hr INTRAVENOUS CONTINUOUS - acetaminophen 1,000 mg CUP (TYLENOL) 1,000 mg ORAL q 6 H - levETIRAcetam iv piggyback 1,000 mg in NaCl (iso-osmotic) 100 mL (KEPPRA) 1,000 mg INTRAVENOUS BID - famotidine 20 mg tab(s) (PEPCID) 20 mg ORAL BID - potassium chloride ER 20-40 mEq tab(s) (K-DUR, KLOR-CON) 20-40 mEq ORAL/FEEDING TUBE PRN Or - potassium chloride iv piggyback 20 mEq/100 mL 20 mEq INTRAVENOUS PRN - magnesium sulfate in sterile water 2 g in sterile water 50 ml 2 g INTRAVENOUS PRN - sodium phosphate 45 mmol in NaCl 0.9% 250 mL 45 mmol INTRAVENOUS PRN - calcium gluconate 4 g in NaCl 0.9% 250 mL 4 g INTRAVENOUS PRN - sodium chloride 0.9 % (flush) 3-5 mL (BD POSIFLUSH) 3-5 mL INTRAVENOUS q 12 H - ondansetron 4 mg tab(s) (ZOFRAN) 4 mg ORAL q 6 H PRN Or - ondansetron (PF) 4 mg injection (ZOFRAN) 4 mg INTRAVENOUS q 6 H PRN - docusate sodium 100 mg cap(s) (COLACE) 100 mg ORAL BID PRN Labs: Recent Labs 09/05/20 0438 09/04/20 2131 NA 138 139 K 3.2* 3.7 CHLOR 106* 103 CO2 23 25 BUN 20 20 CREAT 0.88 0.95 GLUC 91 105* ANION 9 11 CA 8.7 9.3 MG 1.8 -- ALB -- 4.1 AST -- 18 ALT -- 21 ALKPHOS -- 86 TBILI -- 0.4 WBC 5.86 9.52 HB 11.6 12.7 HCT 35.3* 38.7 PLT 232 258 INR -- 1.0 Imagin09/05/2020 ?8:56 AM - Radiology, [facility] In IMPRESSION: 2 mm thick right subdural hemorrhage, decreased from prior exam. Resolved left frontal subdural hemorrhage. Trace right temporal subarachnoid hemorrhage. Unchanged small right frontal and right parietal subarachnoid hemorrhages. Exam: GENERAL: No distress, Alert NEURO: AAOx3, PERRL, CN II-XII intact. Speech clear, fluent. Sensation intact to light touch in UE/LE bilaterally. Strength 5/5 in all extremities. HEENT: normocephalic, atraumatic LUNGS: Unlabored breathing CARDIAC: Regular rate and rhythm as above. Pulses 2+ radial. Cap refill <2s. ABDOMEN: Soft, non-tender, non-distended EXTREMITIES: LI, No deformities, No edema SKIN: Skin color, texture, turgor normal, No rashes or lesions ASSESSMENT AND PLAN: Active Hospital Problems Diagnosis Date Noted - ICH (intracerebral hemorrhage) (HCC) 09/04/2020 Emma Hines is a 64 year old female who presented with traumatic SAH s/p fall off horse. - Neuro as above - Q1 neuro checks - Continue Keppra x7d - HOB >30degrees - Goal SBP <160 - No chemical DVT ppx at this time. SCDs ok SIGNATURE: Ken Melchor APRN.CNP PATIENT NAME: Emma Hines DATE: September 05, 2020 TIME: 11:32 AM Pager: [phone]-30-[facility]21 NoteHNO ID: [id number] Author: Charity Fenton Service: General Surgery Author Type: Resident Type: Progress Notes Filed: 09/05/2020 7:57 AM Note Text: Attestation signed by Yoan Parkinson at 09/22/2020 2:18 PM (Updated) Patient was seen and evaluated by myself on this day September 05, 2020. I agree with the presented documentation unless specifically noted. SIGNATURE: Yoan Parkinson MD PATIENT NAME: Emma Hines DATE: September 22, 2020 TIME: 2:18 PM Pager: [phone] Trauma Surgery Progress Note SERVICE DATE: 09/05/2020 Trauma Service Pager: For questions or concerns Mon-Fri 6a-5p please page [phone]. After 5pm and on Weekends and Holidays, please page [phone] if in ICU or [phone] if on RNF. SUBJECTIVE: Pt reporting 2/10 MEI. No NV. Notes L rib and L hip pain, but denies any pain currently. OBJECTIVE: Vitals: Temp (24hrs), Av.8 ?C (98.2 ?F), Min:36.8 ?C (98.2 ?F), Max:36.8 ?C (98.2 ?F) BP 113/61 Pulse 83 Temp 36.8 ?C (98.2 ?F) Resp 18 SpO2 (!) 94% O2 Therapy: Room Air IANDO: MEDICATIONS Current Facility-Administered Medications Medication Dose Route Frequency - oxyCODONE IR 5-10 mg tab(s) (ROXICODONE) 5-10 mg ORAL q 4 H PRN - NaCl 0.9% iv infusion 100 mL/hr INTRAVENOUS CONTINUOUS - acetaminophen 1,000 mg CUP (TYLENOL) 1,000 mg ORAL q 6 H - levETIRAcetam iv piggyback 1,000 mg in NaCl (iso-osmotic) 100 mL (KEPPRA) 1,000 mg INTRAVENOUS BID - famotidine 20 mg tab(s) (PEPCID) 20 mg ORAL BID - potassium chloride ER 20-40 mEq tab(s) (K-DUR, KLOR-CON) 20-40 mEq ORAL/FEEDING TUBE PRN Or - potassium chloride iv piggyback 20 mEq/100 mL 20 mEq INTRAVENOUS PRN - magnesium sulfate in sterile water 2 g in sterile water 50 ml 2 g INTRAVENOUS PRN - sodium phosphate 45 mmol in NaCl 0.9% 250 mL 45 mmol INTRAVENOUS PRN - calcium gluconate 4 g in NaCl 0.9% 250 mL 4 g INTRAVENOUS PRN - sodium chloride 0.9 % (flush) 3-5 mL (BD POSIFLUSH) 3-5 mL INTRAVENOUS q 12 H - ondansetron 4 mg tab(s) (ZOFRAN) 4 mg ORAL q 6 H PRN Or - ondansetron (PF) 4 mg injection (ZOFRAN) 4 mg INTRAVENOUS q 6 H PRN - docusate sodium 100 mg cap(s) (COLACE) 100 mg ORAL BID PRN Labs: Recent Labs 09/05/20 0438 09/04/20 2131 NA 138 139 K 3.2* 3.7 CHLOR 106* 103 CO2 23 25 BUN 20 20 CREAT 0.88 0.95 GLUC 91 105* ANION 9 11 CA 8.7 9.3 MG 1.8 -- ALB -- 4.1 AST -- 18 ALT -- 21 ALKPHOS -- 86 TBILI -- 0.4 WBC 5.86 9.52 HB 11.6 12.7 HCT 35.3* 38.7 PLT 232 258 INR -- 1.0 PHYSICAL EXAM: Genl: Appears age appropriate. No acute distress. Resting comfortably. Head/Face: Normocephalic. Atraumatic. Eyes: EOMI. Sclera not icteric, not injected Neck: No mid-line masses. C-spine non-tender. Back: T AND L Spine non-tender, no step-offs or deformities noted. No flank tenderness. Resp: Lung sounds are clear bilat. No wheezes. No rales. Breathing is non-labored on RA @94%. CVS: RRR as above; 2+ pulses at RA and DP bilat. GI: Abdomen is soft, non-tender, not distended. No peritonitis. MSK: Extremities without clubbing, cyanosis, edema. Normal ROM x 4. Skin: Warm and dry. Not jaundiced. Ecchymosis and mild TTP overlying the L hip area Neuro: Alert and oriented x3, answers questions appropriately. No focal neurologic deficits. Follows commands. Strength and sensation normal. LI. GCS15. Psych: Normal mood. Normal affect. Appropriate insight into current situation. ASSESSMENT AND PLAN: Active Hospital Problems Diagnosis Date Noted - ICH (intracerebral hemorrhage) (HCC) 09/04/2020 64 year old female s/p fall off of a horse today. Imaging performed: 1. CT H/N/A/P, CXR (09/04 at [place]) 2. CT C non-con (09/04 at [facility]) Traumatic Injuries: 1. Small SAH to R frontal and R parietal 2. Soft tissue injury to L hip/buttock Operations/Procedures: 1. None Care Plan: 1. Appreciate SICU recs - Neurosurgery consulted - HOB > 30 degrees - Keppra - SBP < 160 - Serial neuro checks - Hold DVT chemo ppx for now - Repeat CT Brain in AM (09/05) 1. Current diet order: DIET NPO 2. Pain regimen: Tylenol, Oxy 3. Bowel regimen: Colace 4. Labs: reviewed PPX: 1. DVT: SCDs, chemoppx contraindicated 2. Ulcer: Pepcid 3. Vit D level if > 65 yo: Ordered and pending Consulted Services: 1. Trauma, SICU, NSGY Dispo Plannin. PT/OT recs when appropriate. Case management following. Incidentals: 1. Mild frontal atrophy on CT H Follow Up Needs: 1. TBD Staff Trauma Surgeon: Dr. Parkinson SIGNATURE: Charity Fenton DO PATIENT NAME: Emma Hines DATE: September 05, 2020 TIME: 5:47 AM Pager: see below Trauma Service Pager: For questions or concerns Mon-Fri 6a-5p please page [phone]. After 5pm and on Weekends and Holidays, please page [phone] if in ICU or 2 (more content not included)...[facility]03-30-2021 NoteHNO ID: [id number] Author: Sonu Shaffer (Sw) Service: Care Management Author Type: Child'S Nurse Type: Care Mgt Initial Assessment Filed: 09/04/2020 10:44 PM Note Text: CARE MANAGEMENT: ASSESSMENT AND DISCHARGE PLAN SERVICE DATE: September 04, 2020 SERVICE TIME: 10:00 PM PRIMARY CARE PHYSICIAN: Sosa Chandler DO ADMISSION STATUS: Emergency Needs Prior to Discharge: To Be Determined;OT/PT Evaluation [facility]Analysis Specialist Stated Goals: To have reduction in symptoms;To return home to life as it was Health Insurance: Comment ([facility]) Health Issues Impacting Discharge Plan: (fall off a horse) Last Discharge Date: N/A Is this Within the Past 30 days? Last discharge within 30 days: No Advance Directive: Current Advance Directive: None Dust Handler Attempted to Assist with AD Completion: Yes Action: Education Provided Health LiteracyHow often do you need to have someone help you when you read instructions, pamphlets, or other written material from your doctor or pharmacy? : 1 - Never How confident are you filling out medical forms by yourself?: 1 - Extremely If Patient scores > 3 on either question, the following interventions were put into place:: Use of plain language and active listening with Patient and family;Teach back methods employed to ensure comprehension;Patient did not score > 3 on either question.;Use concrete and specific phrases, avoid medical jargon;Gave Patient the opportunity to ask questions;Sit with Patient Baseline Mental Status Functional Status: Independent Does Patient Currently Receive Any Community Services or Home Care?: None Equipment Prior to Admission: None Has the Patient Been in a Retirement Facility in the Past 30 days?: No SOCIAL: Living Arrangements: Home Lives With: Spouse;Son Financial Resources: Employed Primary Contact: Extended Emergency Contact Information Primary Emergency Contact: LEX HINES Mobile Relation: Spouse Secondary Emergency Contact: Luciano Hines Mobile Relation: Son Supportive Patient Contact:: Yes Caregiver AssessmentCaregiver is ready, willing and able to meet the patient's needs as recommended by the inter-professional team:: Yes Does the patient have an acute stroke diagnosis, or has the patient had a stroke during this admission?: No Patient's transition needs and plan for meeting these needs: home with self care vs home care pending PT/OT recomendations Patient's perception of need for this admission: fall of a horse Medication Adherance I am convinced of the importance of my prescription medication: 0 - Agree Completely I worry that my prescription medication will do more harm than good to me : 0 - Disagree Completely I feel financially burdened by my ezc-[id number] expenses for my prescription medication:: 0 - Disagree Completely Risk Score: 0 Patient is categorized as: Low risk < 2 Are you interested in bedside delivery of your medications? Yes Is Patient Psychosocially Complex?: No ASSESSMENT AND PLAN: Medical Needs: Medical Needs: None Psychosocial Needs: Psychosocial Needs: None FREEDOM OF CHOICE EXPLAINED: [place] of Choice Given: No Reason Not Given: Unable to complete with this assessment - revisit POTENTIAL TRANSITION PLANS Home;Home Care;To Be Determined Funtcion: The patient reports she lives in two story home and stays on main floor. Th patient reports she has 3 steps in garage and has ramp to get inside front of her house. Transportation: drives to appointments DME: hearing aides Support: spouse- Lex Hines ([phone]) Pharmacy:[id number] - [place] [address] - [address] - [phone] PCP: Sosa Chandler DO The patient was trauma II fall of a horse and was was transferred from [place] ED. The patient report after the fall she was able to drive home and she called her son by error who notifed 911 to assess patient due to conversation. The patient reports she has support from her spouse and son. 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 Social work offered support. PT/OT evaluation pending. Social work will follow clinical course for DC planning needs. SIGNATURE: RUBENS Ragland PATIENT NAME: Emma Hines DATE: September 04, 2020 TIME: 10:37 PM PAGER/CONTACT #: [phone] Evaluation noteNo assessment information availableWCleveland Clinic [facility] Work Phone: Evaluation note* Diagnosis Onset Date Resolution Status Chest pain acute Ectopic cardiac beats acute Palpitations acute Benign hypertension chronic HLD (hyperlipidemia) chronic [facility] Work Phone: Evaluation note* Diagnosis Onset Date Resolution Status Ectopic cardiac beats acute Benign hypertension chronic HLD (hyperlipidemia) chronic Palpitations chronic Chest pain resolved [facility] Work Phone: Evaluation note* Diagnosis Pelvic pressure in female Other specified symptom associated with female genital organs Sensation of pressure in bladder area Other specified disorders of bladder documented in this encounter [facility] for referral (narrative)* Diagnostic Procedure Only (Routine) - Closed Specialty Diagnoses / Procedures Referred By Contac t Referred To Contact US IMAGING Diagnoses Pelvic pressure in female Sensation of pressure in bladder area Procedures US FEMALE PELVIS TRANSVAG US TRANSVAGINAL Joan Porter MD [address] [place] [address] [place] [id number] Referral ID Status Reason Start Date Expiration Date V isits Requested Visits Authorized [id number] Closed Auto-Generate d Referral 09/03/2022 10/03/2023 1 1 [facility] Summary Purpose Family History No Family History Records Found Relationship Condition Age at Onset Recorded Date/T ortega Unknown Family History?- Unknown May 022017 2:57am Family History?- Unknown May 022017 2:57am Family History?- Unknown March 4:13pm Relationship Condition Age at Onset Recorded Date/T ortega father Malignant neoplasm Unknown mother Cerebrovascular accident (CVA) Unknown uncle Myocardial infarction Unknown Advance Directives No Advanced Directives Records Found Advance Directive Response Recorded Date/ Time Living Will Yes October 07, 2021 1: 45pm Power of Explosive Operator Grenade Yes October 07, 2021 1:45pm Advance Directive Response Recorded Date/ Time Living Will Yes October 07, 2021 1: 45pm Power of Explosive Operator Grenade Yes October 07, 2021 1:45pm Name of Medical Power of Explosive Operator Grenade October 07, 2021 1:45pm Advance Directive Response Recorded Date/ Time Name of Medical Power of Explosive Operator Grenade LEX LEISURE- March 01, 2022 6:50pm Living Will Yes March 01, 2022 6:50pm Power of Explosive Operator Grenade Yes February 6:50pm Advance Directive Response Recorded Date/ Time Name of Medical Power of Explosive Operator Grenade Lex Leisure, August 12, 2022 5:27am Living Will Yes August 12, 2022 5:27am Power of Explosive Operator Grenade Yes August 12 5:27am Advance Directive Response Recorded Date/ Time Name of Medical Power of Explosive Operator Grenade Lex Leisure, August 12, 2022 5:27am Living Will No August 15, 2022 12:49pm Power of Explosive Operator Grenade No August 15 12:49pm Advance Directive Response Recorded Date/ Time Name of Medical Power of Explosive Operator Grenade Lex Leisure, August 12, 2022 6:27am Living Will No August 15, 2022 1:49pm Power of Explosive Operator Grenade No August 15 1:49pm Chief Complaint and Reason for Visit Chief Complaint NV Chief Complaint NV OSTEO Chief Complaint NV OSTEO HEADACHES Chief Complaint NV OSTEO HEADACHES PALPITATIONS Chief Complaint HEADACHES PALPITATIONS chest pain Chief Complaint HEADACHES PALPITATIONS chest pain CHEST DISCOMFORT/SELF REF. CHEST PAIN CHEST PAIN Reason for Visit Chest pain Ectopic cardiac beats Palpitations Benign hypertension HLD (hyperlipidemia) Chief Complaint 6 wk fu N/V/D Reason for Visit Ectopic cardiac beat s Benign hypertension HLD (hyperlipidemia) Palpitations Chest pain Chief Complaint 6 wk fu N/V/D DIARRHEA Reason for Visit Ectopic cardiac beat s Benign hypertension HLD (hyperlipidemia) Palpitations Chest pain Chief Complaint N/V/D DIARRHEA 2 DRS/ 2 ORDERS Additional Source Comments INFORMATION SOURCE (unrecogn ized section and content) DATE CREATED AUTHOR 06/30/2018 [facility] DATE CREATED AUTHOR AUTHOR'S ORGANIZ ATION 07/01/2018 [employer] DATE CREATED AUTHOR AUTHOR'S ORGANIZ ATION 11/20/2019 [facility] DATE CREATED AUTHOR AUTHOR'S ORGANIZ ATION 12/12/2020 [facility] DATE CREATED AUTHOR AUTHOR'S ORGANIZ ATION 08/22/2021 [facility] DATE CREATED AUTHOR AUTHOR'S ORGANIZ ATION 08/15/2023 [facility] DATE CREATED AUTHOR AUTHOR'S ORGANIZ ATION 11/10/2024 [facility] Goals (unrecognized section and content) Goals may be documented in a n alternate sectionGoals may be documented in an alternate sectionGoals may be documented in an alternate sectionGoals may be documented in an alternate sectionGoals may be documented in an alternate sectionGoals may be documented in an alternate sectionGoals may be documented in an alternate sectionGoals may be documented in an alternate sectionGoals may be documented in an alternate section Care Teams (unrecognized sec tion and content) Team Status: Active Member Role Status Dates Dr. Sosa Chandler DO Family Provider Active Dr. Sosa Chandler DO Primary Care Provider Active Team Status: Inactive Member Role Status Dates Dr. Sosa Chandler DO Primary Care Provider, Referring P manfred Active Ken Ruth TAR HEEL, TAR HEEL-C Attending Provider Active Team Status: Inactive Member Role Status Dates Dr. Sosa Chandler DO Primary Care Provider Active Dr. Lester Mario MD Emergency Provider Active Team Status: Inactive Member Role Status Dates Dr. Sosa Chandler DO Primary Care Provider Active Dr. Monroe Underwood MD Emergency Provider Active Sql Ssrs Ssis Developer Relationship Specialty Start Date End Date Sosa Chandler DO [address] [place] [address] PCP - General Family Medicine 09/04/20 Team Status: Inactive Member Role Status Dates Dr. Sosa Chandler DO Primary Care Provide r, Attending Provider, Referring Provider Active Dr. Justin Navarro MD Other Provider Active Team Status: Inactive Member Role Status Dates Dr. Sosa Chandler DO Primary Care Provider Active Dr. Lester Mario MD Attending Provider, Emergency Provider Active Team Status: Inactive Member Role Status Dates Dr. Sosa Chandler DO Primary Care Provider Active Dr. Monroe Underwood MD Attending Provider, Emergency Pr ovider Active Sql Ssrs Ssis Developer Relationship Specialty Start Date End Date Sosa Chandler DO [address] [place] [address] PCP - General Family Medicine 09/04/20 Sql Ssrs Ssis Developer Relationship Specialty Start Date End Date Sosa Chandler DO [address] [place] [address] PCP - General Family Medicine 09/04/20 Sql Ssrs Ssis Developer Relationship Specialty Start Date End Date Sosa Chandler DO [address] [place] [address] PCP - General Family Medicine 09/04/20 Source Comments (unrecognize d section and content) In the event this informatio n is protected by the Federal Confidentiality of Alcohol and Drug Abuse Patient Records regulations: The Federal rules restrict any use of the information to criminally investigate or prosecute any alcohol or drug abuse patient.[facility] CenterIn the event this information is protected by the Federal Confidentiality of Alcohol and Drug Abuse Patient Records regulations: The Federal rules restrict any use of the information to criminally investigate or prosecute any alcohol or drug abuse patient.[facility] Center[facility] the event this information is protected by the Federal Confidentiality of Alcohol and Drug Abuse Patient Records regulations: The Federal rules restrict any use of the information to criminally investigate or prosecute any alcohol or drug abuse patient.[facility] Center[facility] the event this information is protected by the Federal Confidentiality of Alcohol and Drug Abuse Patient Records regulations: The Federal rules restrict any use of the information to criminally investigate or prosecute any alcohol or drug abuse patient.[facility] Reason for Visit (unrecogniz ed section and content) Reason Comments UTI Reason Comments Radiology US Specialty Diagnoses / Procedures Referred By Contac t Referred To Contact US IMAGING Diagnoses Pelvic pressure in female Sensation of pressure in bladder area Procedures US FEMALE PELVIS TRANSVAG US TRANSVAGINAL Joan Porter MD [address] [place] [address] [place] [id number] Referral ID Status Reason Start Date Expiration Date V isits Requested Visits Authorized [id number] Closed Auto-Generate d Referral 09/03/2022 10/03/2023 [address] FOR RECORDS PERTAINING TO PATIENTS WHO ARE OR HAVE BEEN ENROLLED IN A CHEMICAL DEPENDENCY/SUBSTANCEABUSE PROGRAM, SOME INFORMATION MAY BE OMITTED. This clinical summary was aggregated from multiple sources. Caution should be exercised in using it in the provision of clinical care. This summary normalizes information from multiple sources, and as a consequence, information in this document may materially change the coding, format and clinical context of patient data. In addition, data may be omitted in some cases. CLINICAL DECISIONS SHOULD BE BASED ON THE PRIMARY CLINICAL RECORDS. [employer] [facility]. provides no warranty or guarantee of the accuracy or completeness of information in this document.
== END | disposition home or self-care (01) ==
LOC: MTLAB 11:12
PROVIDERS: Student in an Organized Health Care Education/Training Program; PCP Internal Medicine; Referring Provider Internal Medicine; Visit Provider Internal Medicine
DX: K21.9 Gastro-esophageal reflux disease without esophagitis (principal); E03.9 Hypothyroidism, unspecified; M85.80 Other specified disorders of bone density and structure, unspecified site; R73.03 Prediabetes
CPT/HCPCS: 36415; 80053; 80061; 82306; 83036; 84439; 84443; 85025

== ENCOUNTER → 2024-12-16 | Outpatient (CLI) | payer MEDICARE, SELFPAY ==
--- NOTE | 2024-12-16 10:44 | MRI_ITS ---
PROCEDURE: SPINE LUMBAR (ROUTINE) 12/16/2024 REASON FOR EXAM: BACK PAIN TECHNIQUE: SPINE LUMBAR (ROUTINE) FINDINGS: Normal lumbar vertebral body height without acute compressive deformity. Chronic Schmorl's node noted superior aspect L2 vertebra, T10 and T11. No compression of the conus. No pathologic marrow infiltration. There is no abnormal retroperitoneal mass. At L1-2, disc space narrowing and disc dehydration are present without spinal stenosis. At L2-3, concentric annular bulging is present with a mild degree of acquired spinal stenosis but no nerve root impingement. At L3-4, there is facet arthrosis without spinal stenosis. At L4-5, disc space narrowing is present without central stenosis or foraminal encroachment on the left. There is mild inferior foraminal narrowing on the right. At L5-S1, there is broad-based disc bulging with a subtle central protrusion. This results in a mild degree of acquired canal narrowing MRI/Spine Lumbar (Routine) IMPRESSION: Mild canal narrowing at L2-3 and L5-S1. Mild inferior foraminal narrowing on t he right at L4-5. Disc space narrowing and Schmorl's nodes as discussed above. No acute compress sarabjit deformity. Reading Location: [facility]
== END | disposition home or self-care (01) ==
PROVIDERS: PCP Internal Medicine; Referring Provider Nurse Practitioner Family; Visit Provider Nurse Practitioner Family
DX: M54.16 Radiculopathy, lumbar region (principal)
CPT/HCPCS: 72148

== ENCOUNTER → 2025-01-06 | Outpatient (CLI) | payer MEDICARE, SELFPAY ==
--- NOTE | 2025-01-06 13:54 | RAD_ITS ---
PROCEDURE: HIP, UNI W/ PELVIS 2-3 VIEWS 01/06/2025 REASON FOR EXAM: PAIN TECHNIQUE: HIP, UNI W/ PELVIS 2-3 VIEWS COMPARISON: No FINDINGS: Lower lumbar spine degeneration. Intact pelvic ring. Moderate right hip osteoarthritis. Mild left hip osteoarthritis. No acute bone or soft tissue pathology. RAD/HIP, UNI W/ Pelvis 2-3 Views IMPRESSION: Mild left hip osteoarthritis [facility]
== END | disposition home or self-care (01) ==
LOC: MTRAD 13:48
PROVIDERS: PCP Internal Medicine; Referring Provider Physician Assistant; Visit Provider Physician Assistant
DX: M25.552 Pain in left hip (principal)
CPT/HCPCS: 73502

== ENCOUNTER 2025-01-17 13:00 | Outpatient (RCR) | payer MEDICARE, SELFPAY ==
--- NOTE | 2024-11-17 14:48 | HP.PTEVAL ---
Patient's Visit Information Visit Information Visit Information: ACE HINES is a 69 year old F referred to Physical Therapy by JULIANN Francis with a diagnosis of lumbar radiculopathy. Date of Evaluation: 11/17/24 Physical Therapist: Darius Abraham, DPT, OCS, CSCS Visit Plan Frequency: 2x /Week Duration: 4-6 Weeks Plan: 2x/week for 3-6 for Aquatic therapy for HS stretches, pelvic mobility, lumbar ROM, core strength and general strength and instruct for patient to do at home pool. Thn consider gym stabs and ex also as her home pool is outdoors. IE: initial pool policy orient and educate on pelvic movement and imprtance of strength/ROM and activity modifications including one bag at a time lifting. Subjective Subjective: Chronic back problems and OA with compression on discs. Recently was lifting and carrying two big bags of potting soil and was straining and kept carrying. back hurt after that 3-4 days and then hard to move adn went to [facility]. Gave prednisone and muscle relaxers. F/U with regular dr. Jackman and roel ordered PT and might get MRI(getting apporval). Now off prednisonee and not taking muscle relaxere. Pain not an issue now. No pain since last Friday but has avoided lifting heavy. Can do basic house cleaning. Sleeping OK now. Activities now normal. 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 No regular exercise. Spends time taking care of . Makes meals and takes care of dogs. Does riding mowing and did last week. Pain LBP: Pain Intensity (Out of 10): 0 Pain Intensity Range: 0 and 8 Comment: had tingling in legs Objective Objective: Walks slowly but I into PT poor weight shift and pelvic movement. Trasnfers I with UE chair and bed. Lumbar ROM ext mod limited and no discomfort, flexion is tight in HS but good motion, pelvis is limiting, SB min deficits. reflexes 2/3 patella and achilles Sensation LE WNL LE. - slump, - SLR Strength hips 3+ abd and Rot and xt and flexion with trunk instability. knee flexion ext 4-/5 ankles 4/5 Balance/Special Test Scores Functional Gait Assessment Score: 23 % Disability: 23.3400 Oswestry Low Back Score: 1 Goals Goal 1:: I pool and gym ex to limit chances of recurrence. Goal Time Frame: 2-4 Weeks Goal 2:: Pain in LB remain 0/10 for 2 more weeks. and 100% back to normal Goal Time Frame: 2-4 Weeks Rehabilitation Potential Physical Therapy Diagnosis: LB stiffness and previous pain limiting function. Rehabilitation Potential: Fair Anticipated Interventions Patient/Client Instruction: Educate patient on: Condition and Plan of Care For the Purpose of:: To decrease pain, To increase ROM, To improve muscle performance and motor function and To increase tolerance to activity/condition/position Therapeutic Exercise to Include: Strength training, Flexibilty training, In an aquatic setting, Passive ROM, Active ROM and Dynamic Lumbar Stabilization For the Purpose of:: To decrease pain, To improve nutrient delivery to tissue, To improve muscle performance and motor function, To improve ability of physical actions for home/community/work/leisure and To prevent re-injury Text: Thank you for the opportunity to evaluate your patient. For Medicare and Medicare HMO plans, please review the plan of care and approve it. It will need to be FAXED BACK to us at [phone] for Medicare purposes. For Medicare only, by signing this I certify the plan of care. Please let me know if there are questions or concerns regarding this plan of care. Physician Signature: Date:
--- NOTE | 2024-12-13 15:00 | HP.PTREVAL ---
Re-Evaluation Intro: Alexandra Roy, SONNY-C, It has been my pleasure to treat ACE HINES over the last 8 visits for lumbar radiculopathy. Please see the progress note below for an update on the physical therapy plan of care! Subjective Subjective: Enjoyed thee pool and it helps. Will have MRI on Friday. LB is getting better. No real pain. Still avoids lifting heavy objects. Other activities are normal. Sleep is Ok. No f/u with doctor. Can continue at home in her pool. Doing home exercises regularly. Objective Objective/Function: Lumbar AROM is without pain and WFL today. Walking well without antalgia and good spinal rotation today. Overall still doing well and willing to continue 3x/week in home pool and try gym ex as silver sneakers member 2x/week on own vs in therapy per HEP below. new goals and fair prognosis. Plan Plan Plan: f/u one month to check back ROM, subjective adn body mechanics lifting 40# for dog food bag. new goals and good prognosis. Pt to call prior if worsens or problems. Balance/Gait/Functional tests Balance/Special Test Scores Functional Gait Assessment Score: 23 % Disability: 23.3400 Oswestry Low Back Score: 3 Goals Goals Goal 1:: I pool and gym ex to limit chances of recurrence. Goal Time Frame: 2-4 Weeks Goal Progress: Goal Met Goal 2:: Pain in LB remain 0/10 for 2 more weeks. and 100% back to normal Goal Time Frame: 2-4 Weeks Goal Progress: 80% and met. Goal 3:: I with appropriatee gym compliant for one month with no increased pain. Goal Time Frame: 2-4 Weeks Goal Progress: new goal Goal 4:: Lift 40# bag without pain(dog food) Goal Time Frame: 2-4 Weeks Goal Progress: new goal Anticipated Interventions Anticipated Interventions Patient/Client Instruction: Educate patient on: Condition and Plan of Care For the Purpose of:: To decrease pain, To increase ROM, To improve muscle performance and motor function and To increase tolerance to activity/condition/position Therapeutic Exercise to Include: Strength training, Flexibilty training, In an aquatic setting, Passive ROM, Active ROM and Dynamic Lumbar Stabilization For the Purpose of:: To decrease pain, To improve nutrient delivery to tissue, To improve muscle performance and motor function, To improve ability of physical actions for home/community/work/leisure and To prevent re-injury Re-Evaluation Ending Re-evaluation ending: Please do not hesitate to contact me at [phone] by phone or if you have questions or concerns regarding this new plan of care! Sincerely, Darius Abraham, DPT, OCS, CSCS
--- NOTE | 2025-01-17 13:37 | HP.PTDCSUM ---
Discharge Summary D/C summary: It has been my pleasure to treat ACE HINES referred by Alexandra Roy NP-C, with the diagnosis of lumbar radiculopathy for a total of 9 visit(s). Discharge Date: 01/17/25 Please see the following information for a summary of their discharge status. 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 Has some aids for them at home, but he needs her. Has been getting in pool and it helps. Soreness is still there. Pulling the cover on the pool can make it worse. Has talked with Dr. Lee office adn L hip will be x rayed and has some OA. Same as last time overall. Pain LBP: Pain Intensity (Out of 10): 2 Overall Improvement % Improvement: 85 Objective Objective/Function: Good gait and funcitonal lumbar ROM for walking adn moving today. No new concerns and no pain today. willing to continue gym/pool, home ex vs continue more therapy. Goals Goal 1:: I pool and gym ex to limit chances of recurrence. Goal Progress: Goal Met Goal 2:: Pain in LB remain 0/10 for 2 more weeks. and 100% back to normal Goal Progress: 85% Goal 3:: I with appropriatee gym compliant for one month with no increased pain. Goal Progress: pt confident with this. Goal 4:: Lift 40# bag without pain(dog food) Goal Progress: son lifts. Plan Plan: d/c to HEP D/C Information d/c sentence: If there are questions or concerns regarding this patient's physical therapy, please feel free to call me at [phone]. Thank you for the referral of this patient. Sincerely, Darius Abraham, DPT, OCS, CSCS Balance/Gait/Functional tests Balance/Special Test Scores Functional Gait Assessment Score: 23 % Disability: 23.3400 Oswestry Low Back Score: 3 Improvement % Improvement: 85
== END 2025-01-17 13:50 | disposition home or self-care (01) ==
LOC: PT 13:00
PROVIDERS: PCP Internal Medicine; Referring Provider Nurse Practitioner Family; Visit Provider Nurse Practitioner Family
DX: S39.012D Strain of muscle, fascia and tendon of lower back, subsequent encounter (principal); M54.16 Radiculopathy, lumbar region
CPT/HCPCS: 97113; 97161; 97164; 97530

== ENCOUNTER → 2025-04-13 | Outpatient (CLI) | payer MEDICARE, SELFPAY ==
--- NOTE | 2025-04-13 13:14 | MRI_ITS ---
PROCEDURE: MRI/Lower Ext Joint Only (Routine)
== END | disposition home or self-care (01) ==
PROVIDERS: PCP Internal Medicine; Referring Provider Nurse Practitioner Family; Visit Provider Nurse Practitioner Family
DX: M16.12 Unilateral primary osteoarthritis, left hip (principal); M25.552 Pain in left hip
CPT/HCPCS: 73721